=== PATIENT | female | born 1960 | race Caucasian/White ===

== ENCOUNTER → 2018-04-02 11:24 | Outpatient (CLI) | payer OTHER, SELFPAY ==
[2018-04-02 12:27] LABS: Absolute Lymphocyte Count 1.78 X10^3/ul (0.83-4.51); Absolute Neutrophil Count 2.7 X10^3/uL (2.0-7.7); Basophil# 0.03 X10^3/uL; Basophil% 0.6 % (0-1); Eosinophil# 0.16 X10^3/uL; Hematocrit 42.2 % (37-47); Lymphocyte # 1.78 X10^3/ul (4.0); Lymphocyte % 33.6 % (19-41); Mean Corp Hgb Conc 33.2 g/gl (32-36); Mean Corpuscular Hgb 33.3 pg (27.0-32.0); Mean Corpuscular Volume 100.5 fL (81-99); Mean Platelet Vol. 10.6 fl (6.2-12.0); Monocyte# 0.63 X10^3/uL; Monocyte% 11.9 % (0-10); Neutrophil # 2.68 X10^3/uL (2.7-7.7); Neutrophil % 50.7 % (47-70); Platelet Count 267 K/mm3 (150-450); RBC Distribution Width CV 13.5 % (11.6-14.6); RBC Distribution Width SD 49.5 fl (35.1-43.9); White Blood Count 5.3 K/mm3 (4.4-11.0)
[2018-04-02 12:33] LABS: POSITIVE COUNT NO; POSITIVE DIFFERENTIAL NO; POSITIVE MORPHOLOGY NO
[2018-04-02 13:31] LABS: Anion Gap 6 (5-15); BUN 13 mg/dL (7-18); BUN/Creat Ratio 16.7 RATIO (10-20); Calcium,Total 9.1 mg/dL (8.5-10.1); Chloride 103 mmol/L (98-107); Creatinine, Serum 0.78 mg/dL (0.55-1.02); EST Glomerular Filtration Rate 80 mL/min (>60); Est Glom Filt Rate - Afr Amer 97 mL/min (>60); Glucose 102 mg/dL (74-106); Potassium 3.6 mmol/L (3.5-5.1); Sodium Level 137 mmol/L (136-145); Thyroid Stim Hormone (TSH) 1.87 uIU/mL (0.358-3.74)
== END ==
PROVIDERS: Family Provider Family Medicine; PCP Family Medicine; Visit Provider Family Medicine
DX: L50.8 Other urticaria (principal)
CPT/HCPCS: 36415; 80048; 84443; 85025

== ENCOUNTER → 2019-02-19 | Outpatient (CLI) | payer OTHER, SELFPAY ==
--- NOTE | 2019-02-19 06:38 | MRI_ITS ---
STUDY: MRI RIGHT ANKLE WITHOUT CONTRAST REASON FOR EXAM: Female, 58 years old. Stress fracture. Plantar fasciitis. Heel pain. TECHNIQUE: Standardized fat and water weighted pulse sequences were obtained in all 3 orthogonal planes. COMPARISON: None. FINDINGS: No acute fracture, dislocation or osseous destruction. Long thin plantar spur (sagittal image 9 series 9). Moderate thickening of the central cord of plantar fascia (sagittal image 9 series 9). Partial-thickness tear of the plantar fascial insertion (sagittal images 9 and 10 series 10). Normal Achilles tendon. Normal muscles of the midfoot/hindfoot. Mild soft tissue swelling. Large corkscrewlike varicose veins extending into the tarsal tunnel. Small-volume tibiotalar/subtalar joint effusion. Small volume talonavicular joint effusion. Moderate posterior tibialis and flexor digitorum longus tenosynovitis. Normal flexor hallucis longus tendon. Normal peroneus longus and brevis tendons. Normal tibialis anterior tendon. Normal extensor hallucis longus tendon. Normal extensor digitorum longus tendons. Normal distal tibiofibular syndesmotic ligamentous complex. Normal lateral ligamentous complex. Normal subtalar ligaments and sinus tarsi. Normal deltoid ligamentous complexes. Normal plantar calcaneonavicular (spring) ligament. Normal Lisfranc ligament. Normal tibiotalar articular cartilage. Talar dome intact. Mild subtalar joint arthrosis (sagittal image 6 series 10). Normal talonavicular articular cartilage. Normal calcaneocuboid articular cartilage. Normal navicular-cuneiform articular cartilage. Reactive bone marrow edema at the undersurface of the talus (coronal image 19 series 8). Degenerative changes at the base of the first metatarsal (sagittal image 12 series 10). 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
== END | disposition home or self-care (01) ==
PROVIDERS: Family Provider Family Medicine; PCP Family Medicine; Referring Provider Podiatrist; Visit Provider Podiatrist
DX: M72.2 Plantar fascial fibromatosis (principal); M79.671 Pain in right foot; M84.374A Stress fracture, right foot, initial encounter for fracture
CPT/HCPCS: 73721

== ENCOUNTER → 2019-06-25 | Outpatient (CLI) | payer OTHER, SELFPAY ==
[2019-06-25 10:22] LABS: Erythrocyte Sedimentation Rate 10 mm/hr (0-30)
[2019-06-25 11:04] LABS: CRP < 2.90 mg/L (0.0-3.0); Rheumatoid Factor < 10.0 IU/mL (<15)
[2019-07-02 11:04] LABS: CCP IgG Antibodies 7 units (0-19); HLA B27 Positive (.)
== END | disposition home or self-care (01) ==
LOC: MFPLAB 08:36
PROVIDERS: Family Provider Family Medicine; PCP Family Medicine; Referring Provider Family Medicine; Visit Provider Family Medicine
DX: M19.079 Primary osteoarthritis, unspecified ankle and foot (principal)
CPT/HCPCS: 36415; 81374; 85652; 86140; 86200; 86431

== ENCOUNTER → 2020-07-09 08:47 | Outpatient (CLI) | payer OTHER, SELFPAY ==
[2020-07-09 09:53] LABS: Absolute Lymphocyte Count 1.76 X10^3/uL (0.83-4.51); Absolute Neutrophil Count 2.5 X10^3/uL (2.0-7.7); Basophil# 0.05 X10^3/uL; Basophil% 0.9 % (0-1); Eosinophil# 0.23 X10^3/uL; Eosinophils% 4.3 % (0-5); Hematocrit 41.8 % (37-47); Hemoglobin 13.6 g/dL (12.0-15.0); Lymphocyte # 1.76 X10^3/ul (4.0); Mean Corp Hgb Conc 32.5 g/dL (32-36); Mean Corpuscular Hgb 33.6 pg (27.0-32.0); Mean Corpuscular Volume 103.2 fL (81-99); Mean Platelet Vol. 10.9 fl (6.2-12.0); Monocyte# 0.81 X10^3/uL; Monocyte% 15.2 % (0-10); NRBC Flagged by Analyzer 0 % (0-5); Neutrophil # 2.46 X10^3/uL (2.7-7.7); Neutrophil % 46.2 % (47-70); Platelet Count 275 K/mm3 (150-450); RBC Distribution Width CV 13.6 % (11.6-14.6); RBC Distribution Width SD 51.8 fl (35.1-43.9); Red Blood Count 4.05 M/mm3 (4.2-5.4); White Blood Count 5.3 K/mm3 (4.4-11.0)
[2020-07-09 10:23] LABS: ALB/GLOB Ratio 1.1 RATIO (0.9-2.4); AST(SGOT) 37 U/L (15-37); Alanine Aminotransfer ALT/SGPT 33 U/L (13-56); Alkaline Phosphatase 62 U/L (45-117); Anion Gap 5 (5-15); BUN 15 mg/dL (7-18); BUN/Creat Ratio 17.9 RATIO (10-20); Calcium,Total 9.2 mg/dL (8.5-10.1); Chloride 103 mmol/L (98-107); Cholesterol 244 mg/dL (200); Creatinine, Serum 0.84 mg/dL (0.55-1.02); EST Glomerular Filtration Rate 73 mL/min (>60); Est Glom Filt Rate - Afr Amer 89 mL/min (>60); Globulin 3.5 g/dL (2.2-4.2); Glucose 97 mg/dL (74-106); High Density Lipoprotein 75 mg/dL; Potassium 3.9 mmol/L (3.5-5.1); Protein, Total 7.5 g/dL (6.4-8.2); Sodium Level 138 mmol/L (136-145); Thyroid Stim Hormone (TSH) 1.84 uIU/mL (0.358-3.74); Triglycerides 124 mg/dL; Very Low Density Lipoprotein 25 mg/dL (5-40)
== END ==
PROVIDERS: PCP Family Medicine; Referring Provider Family Medicine; Visit Provider Family Medicine
DX: I10 Essential (primary) hypertension (principal); E03.9 Hypothyroidism, unspecified; E78.00 Pure hypercholesterolemia, unspecified
CPT/HCPCS: 36415; 80053; 80061; 84443; 85025

== ENCOUNTER 2021-12-24 08:14 | Outpatient (CLI) | payer OTHER, SELFPAY ==
[2021-12-24 10:22] LABS: Microalbumin,Random Urine 12.2 mg/L (NO RANGE EST.); Microalbumin:Creatinine Ratio 8.8 mg/g CRE (<30 mg/g CRE)
[2021-12-24 10:39] LABS: ALB/GLOB Ratio 1.1 RATIO (0.9-2.4); AST(SGOT) 25 U/L (15-37); Alanine Aminotransfer ALT/SGPT 26 U/L (13-56); Alkaline Phosphatase 70 U/L (45-117); Anion Gap 7 (5-15); BUN 14 mg/dL (7-18); BUN/Creat Ratio 17.1 RATIO (10-20); Calcium,Total 9.4 mg/dL (8.5-10.1); Chloride 100 mmol/L (98-107); Cholesterol 241 mg/dL (200); Creatinine, Serum 0.82 mg/dL (0.55-1.02); EST Glomerular Filtration Rate 75 mL/min (>60); Est Glom Filt Rate - Afr Amer 90 mL/min (>60); Globulin 3.5 g/dL (2.2-4.2); Glucose 86 mg/dL (74-106); High Density Lipoprotein 95 mg/dL; Protein, Total 7.5 g/dL (6.4-8.2); Sodium Level 135 mmol/L (136-145); Thyroid Stim Hormone (TSH) 4.42 uIU/mL (0.358-3.74); Triglycerides 128 mg/dL; Very Low Density Lipoprotein 26 mg/dL (5-40)
== END 2021-12-24 23:59 | disposition home or self-care (01) ==
LOC: MTLAB 08:16
PROVIDERS: PCP Family Medicine; Referring Provider Nurse Practitioner Family; Visit Provider Nurse Practitioner Family
DX: I10 Essential (primary) hypertension (principal); E78.00 Pure hypercholesterolemia, unspecified; E03.9 Hypothyroidism, unspecified
CPT/HCPCS: 36415; 80053; 80061; 82043; 82570; 84443

== ENCOUNTER → 2022-04-25 | Outpatient (CLI) | payer OTHER, SELFPAY ==
[2022-04-25 12:33] LABS: Thyroid Stim Hormone (TSH) 0.36 uIU/mL (0.358-3.74)
== END | disposition home or self-care (01) ==
LOC: MFPLAB 09:48
PROVIDERS: PCP Family Medicine; Visit Provider Nurse Practitioner Family
DX: E03.9 Hypothyroidism, unspecified (principal)
CPT/HCPCS: 36415; 84443

== ENCOUNTER → 2022-07-20 | Outpatient (CLI) | payer OTHER, SELFPAY ==
[2022-07-20 13:19] LABS: Thyroid Stim Hormone (TSH) 0.28 uIU/mL (0.358-3.74)
== END | disposition home or self-care (01) ==
LOC: MFPLAB 10:48
PROVIDERS: PCP Family Medicine; Referring Provider Family Medicine; Visit Provider Family Medicine
DX: E03.9 Hypothyroidism, unspecified (principal)
CPT/HCPCS: 36415; 84443

== ENCOUNTER → 2022-08-24 | Outpatient (CLI) | payer OTHER, SELFPAY ==
[2022-08-24 11:09] LABS: Thyroid Stim Hormone (TSH) 3.27 uIU/mL (0.358-3.74)
== END | disposition home or self-care (01) ==
LOC: MFPLAB 08:28
PROVIDERS: PCP Family Medicine; Referring Provider Family Medicine; Visit Provider Family Medicine
DX: E03.9 Hypothyroidism, unspecified (principal)
CPT/HCPCS: 36415; 84443

== ENCOUNTER → 2023-01-26 | Outpatient (CLI) | payer OTHER, SELFPAY ==
[2023-01-26 11:03] LABS: Thyroid Stim Hormone (TSH) 1.99 uIU/mL (0.358-3.74)
== END | disposition home or self-care (01) ==
LOC: MFPLAB 08:12
PROVIDERS: PCP Family Medicine; Referring Provider Family Medicine; Visit Provider Family Medicine
DX: E03.9 Hypothyroidism, unspecified (principal)
CPT/HCPCS: 36415; 84439; 84443

== ENCOUNTER → 2023-05-19 | Outpatient (CLI) | payer OTHER, SELFPAY ==
[2023-05-19 10:14] LABS: ALB/GLOB Ratio 1.1 RATIO (0.9-2.4); AST(SGOT) 32 U/L (15-37); Alanine Aminotransfer ALT/SGPT 28 U/L (13-56); Albumin, Serum 3.8 g/dL (3.2-5.0); Alkaline Phosphatase 61 U/L (45-117); Anion Gap 7 (5-15); BUN 14 mg/dL (7-18); BUN/Creat Ratio 18.2 RATIO (10-20); Calcium,Total 9.6 mg/dL (8.5-10.1); Chloride 100 mmol/L (98-107); Cholesterol 213 mg/dL (200); Creatinine, Serum 0.77 mg/dL (0.55-1.02); EST Glomerular Filtration Rate 80 mL/min (>60); Est Glom Filt Rate - Afr Amer 97 mL/min (>60); Globulin 3.6 g/dL (2.2-4.2); Glucose 93 mg/dL (74-106); High Density Lipoprotein 70 mg/dL; Potassium 3.8 mmol/L (3.5-5.1); Protein, Total 7.4 g/dL (6.4-8.2); Sodium Level 135 mmol/L (136-145); Triglycerides 161 mg/dL; Very Low Density Lipoprotein 32 mg/dL (5-40)
[2023-05-19 10:46] LABS: Microalbumin,Random Urine 15.7 mg/L (NO RANGE EST.); Microalbumin:Creatinine Ratio 8.4 mg/g CRE (<30 mg/g CRE)
== END | disposition home or self-care (01) ==
LOC: MFPLAB 08:39
PROVIDERS: Family Medicine; PCP Family Medicine; Visit Provider Family Medicine
DX: E78.00 Pure hypercholesterolemia, unspecified (principal); I10 Essential (primary) hypertension
CPT/HCPCS: 36415; 80053; 80061; 82043; 82570

== ENCOUNTER → 2023-10-17 | Outpatient (CLI) | payer OTHER, SELFPAY ==
--- OUTSIDE RECORDS SUMMARY | 2023-10-17 11:54 | XMS RPT_ITS | CCD ---
Author Name Unknown Address [address] [place] [address] Organization [facility] Care Team Providers Care Supervisor Grading Name Role Phone Spnecer Rodriguez MD Unavailable JOSE MIGUEL HATHAWAY Attending Unavailable JOSE MIGUEL HATHAWAY Primary Care Unavailable JOSE MIGUEL HATHAWAY Admitting Unavailable JOSE MIGUEL HATHAWAY Attending Unavailable JOSE MIGUEL HATHAWAY Primary Care Unavailable JOSE MIGUEL HATHAWAY Admitting Unavailable Christiano Holger MCDOWELL Unavailable ChristianoHolger dixon DO Primary Care Provider [phone] Nubia Sage DO Primary Care Provider Nubia Sage DO Primary Care Provider THERESA SANDHU Referring Unavailable CHRISTIANOHOLGER VICK Primary Care Unavailable HOLGER ALVARADO Primary Care Unavailable ALLAN PARTIDA Referring Unavailable CHRISTIANOHOLGER Dixon Primary Care Unavailable ALLAN PARTIDA Referring Unavailable NUBIA SAGE Primary Care Unavailable ALLAN PARTIDA Referring Unavailable NUBIA SAGE Primary Care Unavailable ALLAN PARTIDA Referring Unavailable NUBIA SAGE Primary Care Unavailable ALLAN PARTIDA Referring Unavailable CHELSEY BAIG Referring Unavailable NUBIA SAGE Primary Care Unavailable CHELSEY BAIG Referring Unavailable NUBIA SAGE Primary Care Unavailable GUANAKO ABARCA Attending Unavailable NUBIA SAGE Primary Care Unavailable ALLAN PARTIDA Referring Unavailable CHRISTIANOHOLGER Primary Care Unavailable ALLAN PARTIDA Referring Unavailable SHOSHANA, CLAUDIA Attending Unavailable CHRISTIANO, HOLGER Kolb Primary Care Unavailable FEINLEIB, ALLAN E Referring Unavailable DEZ DOBBINS Attending Unavailable NUBIA SAGE Primary Care Unavailable FEINLEIB, ALLAN E Referring Unavailable CHRISTINAOHOLGER Primary Care Unavailable FEINLEIB, ALLAN E Referring Unavailable FEINLEIB, ALLAN E Attending Unavailable NUBIA SAGE Primary Care Unavailable FEINLEIB, ALLAN E Referring Unavailable NUBIA SAGE Primary Care Unavailable FEINLEIB, ALLAN E Referring Unavailable NUBIA SAGE Primary Care Unavailable FEINLEIB, ALLAN E Referring Unavailable Medications Current Medications Medication Drug Class(es) Dates Sig (Normalized) Sig (Original) iv contrast (will be provided with radiology test) (1 source) Start: 07-26-2023 End: 07-27-2023 inject 1 dose intravenously once iv contrast (will be provided with radiology test) Indications: Ascending aorta dilation (HCC) CTA Chest. No IV access, insert saline lock prior to the sedation, infusion, injection for imaging exam. Discontinue saline lock post exam. If Pt. has a central line or IVAD, may access for administration according to line specific nursing protocol. Once exam is complete flush line and de-access according to line specific nursing protocol in the CT contrast administration guidelines link. 1 Each 0 07/26/2023 07/27/2023 Active Completed/Discontinued Medications Medication Drug Class(es) Dates Sig (Normalized) Sig (Original) aspirin 81 mg delayed release oral tablet (12 sources) Platelet Aggregation Inhibitor, Nonsteroidal Anti-inflammatory Drug Start: 03-10-2020 take 1 tablet by mouth once daily aspirin, enteric coated (ECOTRIN LOW STRENGTH) 81 mg EC tablet Take 1 tablet by mouth once daily. 0 03/10/2020 Active Problems Active Problems Problem Classification Problem Date Documented Date Episodic/Chronic Abdominal hernia (6 sources) Hernia of anterior abdominal wall; Translations: [Ventral hernia without obstruction or gangrene] Onset: 09-08-2023 08-01-2023 Episodic Aortic; peripheral; and visceral artery aneurysms (14 sources) Ascending aorta dilatation; Translations: [Thoracic aortic ectasia] Onset: 10-31-2019 07-26-2023 Chronic Cardiac and circulatory congenital anomalies (11 sources) Atrial septal defect; Translations: [ASD (atrial septal defect)] 10-31-2019 Chronic Disorders of lipid metabolism (20 sources) Hypercholesterolemia; Translations: [Pure hypercholesterolemia, unspecified] Onset: 10-31-2019 08-01-2023 Chronic Essential hypertension (12 sources) Hypertensive disorder; Translations: [Essential (primary) hypertension] 10-31-2019 Chronic Immunizations and screening for infectious disease (2 sources) Vaccination needed; Translations: [Encounter for immunization] Onset: 08-01-2023 08-01-2023 Episodic Menopausal disorders (11 sources) Menopausal syndrome; Translations: [Menopausal and female climacteric states] 10-31-2019 Chronic Nutritional deficiencies (11 sources) Vitamin D deficiency; Translations: [Vitamin D deficiency, unspecified] Onset: 10-31-2019 08-01-2023 Chronic Osteoarthritis (4 sources) Osteoarthritis of foot joint; 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] Onset: 05-02-2019 05-02-2019 Chronic Other connective tissue disease (12 sources) Plantar fasciitis; Translations: [Plantar fascial fibromatosis] Onset: 05-02-2019 05-02-2019 Episodic Other connective tissue disease (11 sources) Foot pain; Translations: [Pain in unspecified foot] 10-31-2019 Episodic Other connective tissue disease (11 sources) Calcaneal spur; Translations: [Calcaneal spur, unspecified foot] 10-31-2019 Episodic Other connective tissue disease (1 source) Other bursitis of hip, right hip; Translations: [Bursitis of both hips, unspecified bursa] Onset: 08-01-2023 Episodic Other connective tissue disease (1 source) Other bursitis of hip, left hip; Translations: [Bursitis of both hips, unspecified bursa] Onset: 08-01-2023 Episodic Other inflammatory condition of skin (11 sources) Psoriasis; Translations: [Psoriasis, unspecified] 10-31-2019 Chronic Other nutritional; endocrine; and metabolic disorders (11 sources) Obese class I; Translations: [Obesity, unspecified] Onset: 08-01-2023 08-01-2023 Chronic Other and delivery including normal (11 sources) Delivery normal; Translations: [Encounter for full-term uncomplicated delivery] 10-31-2019 Episodic Other screening for suspected conditions (not mental disorders or infectious disease) (20 sources) Patient encounter status; Translations: [Encounter for screening for malignant neoplasm of cervix] Onset: 10-16-2015 10-31-2019 Episodic Thyroid disorders (12 sources) Hypothyroidism; Translations: [Hypothyroidism, unspecified] Onset: 08-01-2023 10-31-2019 Chronic Transient cerebral ischemia (11 sources) Transient cerebral ischemia; Translations: [Transient cerebral ischemic attack, unspecified] Onset: 10-16-1987 10-31-2019 Chronic Past or Other Problems Problem Classification Problem Date Documented Da te Episodic/Chronic Diabetes mellitus without complication (11 sources) Prediabetes; Translations: [Prediabetes] Onset: 10-31-2019 08-01-2023 Episodic Other connective tissue disease (11 sources) Bilateral bursitis of hips; Translations: [Other bursitis of hip, right hip] Onset: 11-16-2021 08-01-2023 Episodic Other nutritional; endocrine; and metabolic disorders (11 sources) Blood urate raised; Translations: [Hyperuricemia without signs of inflammatory arthritis and tophaceous disease] Onset: 10-31-2019 08-01-2023 Episodic Unclassified (1 source) Problem Results Test Name Value Interpretation Reference Range Facil ity Vital Signs Date Time Vital Sign Value Performing Clinician Facility 09-11-2023 12:59-0500 Body height 175.3 cm Guanako Abarca MD Work Phone: [facility] 09-11-2023 12:59-0500 Body temperature 96.4 [degF] Guanako Abarca MD Work Phone: [facility] 09-11-2023 12:59-0500 Body weight 99.79 kg Guanako Abarca MD Work Phone: [facility] 09-11-2023 12:59-0500 Diastolic blood pressure 87 mm[Hg] Guanako Abarca MD Work Phone: [facility] 09-11-2023 12:59-0500 Heart rate 65 /min Guanako Abarca MD Work Phone: [facility] 09-11-2023 12:59-0500 Respiratory rate 12 /min Guanako Abarca MD Work Phone: [facility] 09-11-2023 12:59-0500 Systolic blood pressure 166 mm[Hg] Guanako Abarca MD Work Phone: [facility] 08-01-2023 10:05-0400 Diastolic blood pressure 85 mm[Hg] Allan Partida MD Work Phone: [facility] 08-01-2023 10:05-0400 Heart rate 80 /min Allan Partida MD Work Phone: [facility] 08-01-2023 10:05-0400 Systolic blood pressure 128 mm[Hg] Allan Partida MD Work Phone: [facility] 08-01-2023 09:57-0400 Body height 175.3 cm Allan Partida MD Work Phone: [facility] 08-01-2023 09:57-0400 Body temperature 97.7 [degF] Allan Partida MD Work Phone: [facility] 08-01-2023 09:57-0400 Body weight 98.1 kg Allan Partida MD Work Phone: [facility] 08-01-2023 08:26-0400 Body height 175.3 cm Holger Alvarado DO Work Phone: [facility] 08-01-2023 08:26-0400 Body weight 98.07 kg Holger Alvarado DO Work Phone: [facility] NEGATED: Highlighted [id number] 09:35-0400 BMI (Body Mass Index) 33.2 kg/m2 Nubia Jeter LPN [facility] Work Phone: NEGATED: Highlighted [id number] 09:35-0400 Body weight 101.61 kg Nubia Jeter LPN [facility] Work Phone: NEGATED: Highlighted [id number] 09:35-0400 Body weight 102 kg Nubia Jeter LPN [facility] Work Phone: NEGATED: Highlighted [id number] 09:35-0400 BP Diastolic 89 mm[Hg] Nubia Jeter LPN [facility] Work Phone: NEGATED: Highlighted [id number] 09:35-0400 BP Diastolic 99 mm[Hg] Nubia Jeter LPN [facility] Work Phone: NEGATED: Highlighted [id number] 09:35-0400 BP Systolic 161 mm[Hg] Nubia Jeter COMPLETIONS MANAGER [facility] Work Phone: NEGATED: Highlighted [id number] 09:35-0400 BP Systolic 155 mm[Hg] Nubia Jeter LPN [facility] Work Phone: NEGATED: Highlighted [id number] 09:35-0400 Heart rate 2+ Nubia Jeter COMPLETIONS MANAGER [facility] Work Phone: NEGATED: Highlighted [id number] 09:35-0400 Height 175.26 cm Nubia Jeter COMPLETIONS MANAGER [facility] Work Phone: NEGATED: Highlighted [id number] 09:35-0400 Height 175 cm Nubia Jeter COMPLETIONS MANAGER [facility] Work Phone: NEGATED: Highlighted [id number] 09:35-0400 Pulse (Heart Rate) 54 /min Nubia Jeter COMPLETIONS MANAGER [facility] Work Phone: Encounters Encounter Date Encounter Type Care Provider Facility Start: 09-18-2023 End: 09-18-2023 ambulatory DEZ DOBBINS Facility:[facility] Start: 09-11-2023 End: 09-12-2023 ambulatory GUANAKO ABARCA Facility:[facility] Start: 09-11-2023 End: 09-11-2023 Patient encounter procedure Guanako Abarca MD Work Phone: General Surgery Procedures Date Procedure Procedure Detail Performing Clinician Start: 09-08-2023 Ct abdomen & pelvis w/o contrast material Chelsey Baig MARCOS Work Phone: Start: 08-01-2023 Radiologic exam knee complete 4/more views Allan Partida MD Work Phone: Start: 08-01-2023 PFIZER-BIONTECH COVI D-19 VACCINE ( SEASON) AGE 12+ YR Allan Partida MD Work Phone: Start: 08-01-2023 RSV VACCINE, BIVALEN T (ABRYSVO) Allan Partida MD Work Phone: Start: 08-01-2023 HEARING SCREENING Frances Ross BOLDEN Work Phone: Start: 08-01-2023 Lipid 1996 panel - S celina or Plasma Holger Alvarado DO Work Phone: Start: 10-31-2019 Lipid 1996 panel - S celina or Plasma Allan Partida MD Work Phone: Start: 05-02-2019 End: 05-02-2019 Blood pressure outside of normal parameters - follow-up documented Spencer Rodriguez MD Work Phone: Start: 05-02-2019 End: 05-02-2019 BMI documented as above normal parameters - follow-up documented Spencer Rodriguez MD Work Phone: Start: 05-02-2019 End: 05-02-2019 Documentation of current medications Spencer Rodriguez MD Work Phone: Start: 05-02-2019 End: 05-02-2019 Osteoarthritis symptoms and functional status not assessed Spencer Rodriguez MD Work Phone: Start: 05-02-2019 End: 05-02-2019 Pain assessment documented as positive - follow-up documented Spencer Rodriguez MD Work Phone: Start: 05-02-2019 End: 05-02-2019 Tobacco non-user Spencer Rodriguez MD Work Phone: Start: 07-23-2012 Colonoscopy Allan piña MD Work Phone: NEGATED: Highlighted rowStart: 05-02-2019 End: 05-02-2019 Documentation of current medications Nubia Jeter LPN Plan of Treatment Date Care Activity Detail Author Start: 08-01-2028 Lipid 1996 panel - Serum or Plasma Lipid Screening [facility] Start: 08-01-2026 Diabetes Screening Diabetes Screening [facility] Start: 05-19-2026 Urine microalbumin profile DTaP,Tdap,Td Vaccine (2 - Td or Tdap) [facility] Start: 10-31-2024 Lipid 1996 panel - Serum or Plasma Lipid Screening [facility] Start: 06-16-2023 Covid-19 Vaccine () Covid-19 Vaccine () [facility] Start: 06-16-2023 Covid-19 Vaccine () Covid-19 Vaccine () [facility] Start: 06-16-2023 Influenza vaccination Influenza Vaccine (#1) [facility] Start: 2023 Advance Directive Discussion Advance Directive Discussion [facility] Start: 2023 Bone Density Screening Bone Density Screening [facility] Start: 2023 Pneumococcal Vaccine: 65+ (3 - PPSV23 or PCV20) Pneumococcal Vaccine: 65+ (3 - PPSV23 or PCV20) [facility] Start: 10-31-2022 Diabetes Screening Diabetes Screening [facility] Start: 10-16-2022 Depression Assessment Depression Assessment [facility] Start: 07-23-2022 Colonoscopy Colonoscopy [facility] Start: 07-23-2022 Colorectal Cancer Screening Colorectal Cancer Screening [facility] Start: 10-31-2020 Mammography Mammogram Screening [facility] Start: 05-02-2019 End: 05-02-2019 Appointment Appointment [facility] Work Phone: Start: 2018 RSV Vaccine (1 - 1-dose 60+ series) RSV Vaccine (1 - 1-dose 60+ series) [facility] Start: 07-23-2013 Colonoscopy Colonoscopy [facility] Start: 07-23-2013 Colorectal Cancer Screening Colorectal Cancer Screening [facility] Start: 2008 Shingrix Vaccine (1 of 2) Shingrix Vaccine (1 of 2) [facility] Start: 2003 Cologuard (FIT-DNA) Cologuard (FIT-DNA) [facility] Start: [address] COLONOGRAPHY [facility] Start: 2003 Fecal Occult Blood Fecal Occult Blood [facility] Start: 2003 SIGMOIDOSCOPY SIGMOIDOSCOPY [facility] Start: 1976 Annual PCP Team Chronic Disease Visit Annual PCP Team Chronic Disease Visit [facility] Start: 1976 BP Controlled (<130/80) BP Controlled (<130/80) [facility] in Start: 1976 HIV Screening HIV Screening [facility] COLOGUARD COLOGUARD Lab Claudia chong Colon cancer screening Ordered: 08/01/2023 [facility] Work Phone: Immunizations Immunization Date Immunization Notes Care Provider Fa tam 08-01-2023 COVID-19 vaccine, ag e 12+ yr, 2022- season (Broadcast.mobi) Claudia Shoshana AUD Work Phone: [facility] 08-01-2023 pneumococcal (PCV20) vaccine, 20 valent (PREVNAR 20) [facility] AUD Work Phone: [facility] 08-01-2023 respiratory syncytia l virus (RSV) vaccine, bivalent (ABRYSVO) [facility] AUD Work Phone: [facility] 08-01-2023 pneumococcal Conjuga te, unspecified formulation Allan Partida MD Work Phone: [facility] Work Phone: 07-27-2023 influenza, injectabl e, quadrivalent, contains preservative Holger Christiano DO Work Phone: [facility] Work Phone: 07-13-2020 zoster vaccine recombinant Holger Christiano DO Work Phone: [facility] 12-24-2019 zoster vaccine recombinant Holger Christiano DO Work Phone: [facility] 12-17-2019 meningococcal B vacc ine, fully recombinant Holger Alvarado DO Work Phone: [facility] 12-17-2019 meningococcal oligosaccharide (groups A, C, Y and W-135) diphtheria toxoid conjugate vaccine (MCV4O) Holger Alvarado DO Work Phone: [facility] 07-16-2019 influenza, injectabl e, quadrivalent, contains preservative Allan Partida MD Work Phone: [facility] 07-16-2019 influenza virus vacc ine, unspecified formulation Allan Partida MD Work Phone: [facility] 05-19-2016 pneumococcal conjuga te vaccine, 13 valent Allan Partida MD Work Phone: [facility] 05-19-2016 tetanus toxoid, redu benny diphtheria toxoid, and acellular pertussis vaccine, adsorbed Allan Partida MD Work Phone: [facility] 10-21-2009 novel influenza-H1N1 -09, preservative-free, injectable Holger Alvarado DO Work Phone: [facility] 10-05-1999 pneumococcal polysaccharide vaccine, 23 valent Allan Partida MD Work Phone: [facility] Payers Date Payer Category Payer Private Health Insurance KARINA العراقي OAP [id number] 2020-Present [phone] [facility] [id number] [place] [address] Open Access [id number] 2020 Private Health Insurance [id number] Social History Date Type Detail Facility Start: 05-02-2019 End: 05-02-2019 Assertion Unknown if ever smoked [facility] Work Phone: Start: 10-31-2019 End: 08-01-2023 Tobacco smoking status NHIS Ex-smoker [facility] Work Phone: Start: 10-16-1975 End: 10-16-1979 History of tobacco use Current smoker [facility] Work Phone: Start: 10-16-1975 End: 10-16-1979 History of tobacco use Cigarette Smoker [facility] Work Phone: Start: 10-31-2019 End: 08-01-2023 Cigarettes smoked current (pack per day) - Reported 0.3 [facility] Start: 10-31-2019 End: 08-01-2023 Tobacco use and exposure Smokeless tobacco non-user [facility] Work Phone: Start: 12-08-2021 End: 08-01-2023 Alcohol intake Current drinker of alcohol (finding) [facility] Start: 12-08-2021 End: 08-01-2023 Tobacco use panel [facility] Adult Depression Screening Assessment 0 [facility] Start: 10-31-2019 Tobacco Comment 4-5 cigarettes/day [facility] Start: 10-31-2019 [facility] Start: 1960 Sex Assigned At Female [facility] Start: 11-04-2020 Gender identity Identifies as female gender (finding) [facility] Start: 11-04-2020 Sexual orientation Heterosexual (fin ding) [facility] Start: 08-01-2023 Alcohol Comment 2 glasses of s cotch nightly [facility] NEGATED: Highlighted rowStart: 05-02-2019 End: 05-02-2019 Employment detail Employment detail [facility] Work Phone: Clinical Notes 11-05-2020 to 09-11-2023 Guanako Abarca MD - 09/11/2023 1:29 PM Sidney Haro - 09/11/2023 1:00 PM Tresa Barkley MD - 09/11/2023 12:58 PM Chelsey Chan RT(R) - 09/08/2023 3:20 PM EST Note Date & Type Note Facility 09-11-2023 Note HNO ID: [id number] Author: Guanako Abarca MD Service: ? Author Type: Physician Type: Progress Notes Filed: 09/18/2023 5:15 PM Note Text: Consultation requested by Dr. Allan Partida for an opinion regarding incisional hernia. My final recommendations will be communicated back to the requesting physician by way of shared Medical record or letter to requesting physician via [place] mail. I have seen and evaluated the patient and discussed the case with the resident physician. I agree with the assessment and plan as documented in the resident?s note. Josh Huffman is a 63 year old female here for evaluation of a(n) incisional epigastric hernia. 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 Other significant comorbidities include hypothyroidism, HTN, psoriasis. On exam, she has an an umbilical hernia and on CT she has the same as well as a large stone in her GB (she is asymptomatic). Plan is for watchful waiting as per patient for now (will discuss with at home) but if she wants intervention we would offer her lap assisted ventral hernia repair with mesh. Patient consented for study? Not applicable Guanako Abarca MD September 11, 2023 2:18 PM [facility] 09-11-2023 History of Present illness Narrative Consultation requested by Dr. Allan Partida for an opinion regarding incisional hernia. My final recommendations will be communicated back to the requesting physician by way of shared Medical record or letter to requesting physician via US mail. I have seen and evaluated the patient and discussed the case with the resident physician. I agree with the assessment and plan as documented in the resident s note. Josh Huffman is a 63 year old female here for evaluation of a(n) incisional epigastric hernia. 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 Other significant comorbidities include hypothyroidism, HTN, psoriasis. On exam, she has an an umbilical hernia and on CT she has the same as well as a large stone in her GB (she is asymptomatic). Plan is for watchful waiting as per patient for now (will discuss with at home) but if she wants intervention we would offer her lap assisted ventral hernia repair with mesh. Patient consented for study? Not applicable Guanako Abarca MD September 11, 2023 2:18 PM documented in this encounter [facility] 09-11-2023 Nurse Note What is the reason for your visit today? Consult ventral hernia Who is your referring physician? Dr. Partida Are you having poor oral intake? NO Have you had unintentional weight loss of 15 lbs/7 Kg in the last 3-6 months? NO Bowels: regular Wound: clean & dry Temperature: No Drains: No documented in this encounter [facility] 09-11-2023 History and physical note [facility] - HISTORY AND PHYSICAL SUBJECTIVE: Chief Complaint: ventral hernia HPI: Josh Huffman is a 63 year old female with history of HTN, ASD s/p repair, hypothyroidism, arthritis and psoriasis and who presents with ventral hernia. She states that she has only noticed the hernia in the past year and that it was formally diagnosed by her PCP at her most recent executive physical exam earlier this month. It does not cause her any pain or discomfort. 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 HEENT: Negative for frequent or significant headaches, No changes in hearing or vision, no nose bleeds or other nasal problems. NECK: Negative for lumps, goiter, pain and significant neck swelling. RESPIRATORY: Negative for cough, hemoptysis, wheezing, COPD, dyspnea or shortness of breath. CARDIOVASCULAR: Negative for chest pain, leg swelling, hypertension, CHF or palpitations. GI: No nausea, vomiting, or diarrhea. MUSCULOSKELETAL: Negative for joint pain or swelling, back pain or muscle pain. SKIN: Negative for lesions, rash, and itching. PSYCH: Negative for sleep disturbance, mood disorder and recent psychosocial stressors. NEURO: No history of headaches, syncope, paralysis, seizures or tremors. PAST MEDICAL HISTORY Diagnosis Date Ascending aorta dilation (4.3 cm on non-contrast CT 10/2019) 10/31/2019 ASD (atrial septal defect) 1988 repaired at [facility] at age 27 Bilateral hip bursitis 11/2021 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 Elevated uric acid in blood 10/31/2019 without gout Heel spur resolved with Tenex Hypercholesterolemia 10/31/2019 Hypertension on medication since 2012 Hypothyroidism 2017 Menopausal state Normal coronary arteries, Coronary Calcium Score = 0 (10/2019) 10/31/2019 (normal spontaneous vaginal delivery) 1987, 1989, 1993 1987: 8'12 ; 1989 9'3 ; 1993: 9'1 Prediabetes 10/31/2019 Psoriasis scalp Right plantar fasciitis treated with Tenex TIA (transient ischemic attack) 1988 during first , diagnosed ASD, repaired at [facility] after delivery Vitamin D deficiency 10/31/2019 PAST SURGICAL HISTORY Procedure Laterality Date COLONOSCOPY 07/23/2012 hemorrhoids, diverticulosis, advised 10-year follow-up HEART SURGERY HX 1987 at [facility], atrial septal defect repair LASIK Right 2001 Right PAST SURGICAL HISTORY OF 2018 laser surg, greater and lesser saphenous veins, bilateral REMOVAL OF SPLEEN TOTAL 1969 traumatic SKIN BIOPSY HX benign TOE SURGERY HX 2012 tendon repairs due to step into groundhog hole, second surgery same year due to atrophic changes TONSILLECTOMY HX 1975 US GUIDED PLANTAR FASCIOTOMY Right 12/25/2020 Right FAMILY HISTORY Problem Relation Age of Onset Heart Mother pacemaker Psoriasis Mother Arthritis Mother psoriatic Lung Cancer Mother at 92 in 11/2022 Prostate Cancer Father at 79, metastasized to bone Aneurysm Father brain Melanoma Sister 42 Alcohol abuse Brother Dementia Brother alcohol-related, in SNF other (Head injury) Brother at 29 Cancer Brother Throat, at age 61 Diabetes Paternal Grandmother at ~72, type I Diabetes Son type 1 No Known Problems Son Hearing Loss Son hearing aids since age 4 Social History Tobacco Use Smoking status: Former Packs/day: 0.25 Years: 4.00 Additional pack years: 0.00 Total pack years: 1.00 Types: Cigarettes Start date: 10/16/1975 Quit date: 10/16/1979 Years since quittin.9 Smokeless tobacco: Never Vaping Use Vaping Use: Never used Substance Use Topics Alcohol use: Yes Alcohol/week: 14.0 standard drinks of alcohol Types: 14 Shots of liquor per week Comment: 2 glasses of scotch nightly Drug use: Never Prior to Admission medications as of 08/01/23 1524 Medication Sig Last Dose Taking levothyroxine (SYNTHROID) 100 mcg tablet Take 1 tablet by mouth four times a week. //Sat/Sun levothyroxine (SYNTHROID) 112 mcg tablet Take 1 tablet by mouth three times a week. Mon/Mon/Fri cyanocobalamin, vitamin B-12, (VITAMIN B-12 ORAL) Take 1,000 mcg by mouth once daily. cholecalciferol, vitamin D3, (VITAMIN D3 ORAL) Take 2,000 Units by mouth once daily. psyllium husk (METAMUCIL ORAL) Take 5.8 g by mouth once daily. diclofenac (VOLTAREN) 1 % topical gel Apply 2 g to affected area four times daily. aspirin, enteric coated (ECOTRIN LOW STRENGTH) 81 mg EC tablet Take 1 tablet by mouth once daily. KELP ORAL Take 325 mcg by mouth daily at bedtime. iodine supplement MILK THISTLE ORAL Take 1,000 mg by mouth once daily. Includes Dandelion root 50mg naproxen sodium (ALEVE) 220 mg cap Take 2 capsules by mouth once daily. 1 capsule in PM lisinopril-hydrochlorothiazide 10-12.5 mg per tablet Take 1 tablet by mouth every morning. metoprolol succinate XL, long acting, (TOPROL XL) 100 mg Tb24 Take 100 mg by mouth daily at bedtime. ALLERGIES No Known Allergies PHYSICAL EXAM: GENERAL: Alert. No distress. Resting comfortably. NEURO: A&Ox3. No focal neurologic deficits. Sensation grossly intact. HEENT: Normocephalic. Atraumatic. EOMI. LUNGS: Unlabored breathing. Equal excursion bilaterally. CARDIAC: Regular rate. Good perfusion throughout. ABDOMEN: Soft, non-tender, non-distended. No rebound or guarding. Ventral hernia present under prior chest tube site. Umbilical hernia not palpable EXTREMITIES: NEGRETE. No deformities. SKIN: No obvious jaundice or pallor. Relevant hernia findings - ventral hernia below chest tube incision site from ASD repair LABS: Reviewed as necessary IMAGING: CTAP 09/08/23 * Ventral midline upper abdominal wall hernia containing fat at the level of the left hepatic lobe. A portion of the left lobe is immediately adjacent to the neck without entering the hernia sac. The hernia neck measures 3.4 x 2.4 cm in maximum TV and AP dimensions (5:35, 8:86). * Tiny fat-containing umbilical hernia. ASSESSMENT/PLAN: Josh Huffman is a 63 year old female with history of HTN, ASD s/p repair, hypothyroidism, arthritis and psoriasis and who presents with ventral hernia. Today we discussed the indications for ventral hernia repair, procedure description, and anticipated recovery. After discussion with Starr and her about the relative risks and benefits of laparoscopic ventral hernia repair, she decided to wait and see how her clinical course progresses given her asymptomatic state. All questions were answered at this time. Of note, we did also talk about the CT finding of gallstone and that if she starts developing postprandial RUQ pain, to seek care. Plan: - Follow up with Dr. Abarca as needed. Patient seen and discussed with Dr. Tevin Li MD PGY-1 Resident Hernia Surgery Service 09/11/2023 12:58 PM documented in this encounter [facility] 09-08-2023 Note HNO ID: [id number] Author: Chelsey Guzman RT(R) Service: ? Author Type: Cleaning Maid Type: Progress Notes Filed: 09/08/2023 2:24 PM Note Text: Radiology Service Progress Note PATIENT NAME: Josh Huffman DATE OF SERVICE: September 08, 2023 TIME: 2:24 PM PATIENT IDENTITY VERIFICATION COMPLETED USING TWO (2) IDENTIFIERS: Name and Date of confirmed by patient verbally. FALL SCREENING: Has the patient had 2 falls in the last year or 1 fall with injury or currently using an Ambulatory Assistive Device (Walker, Cane, Wheelchair, Crutches, etc.)? No PATIENT GENDER DATA: Female. status: : No status: NO. PATIENT RELEVANT IMPLANT DATA REVIEWED: Yes RADIOLOGY DEPARTMENT: CT; Exam(s) Completed: Abdomen/Pelvis PERIPHERAL IV DATA: Not applicable SIGNED BY: RT Shanell(R) September 08, 2023 2:24 PM [facility] 09-08-2023 History of Present illness Narrative Radiology Service Progress Note PATIENT NAME: Josh Huffman DATE OF SERVICE: September 08, 2023 TIME: 2:24 PM PATIENT IDENTITY VERIFICATION COMPLETED USING TWO (2) IDENTIFIERS: Name and Date of confirmed by patient verbally. FALL SCREENING: Has the patient had 2 falls in the last year or 1 fall with injury or currently using an Ambulatory Assistive Device (Walker, Cane, Wheelchair, Crutches, etc.)? No PATIENT GENDER DATA: Female. status: : No status: NO. PATIENT RELEVANT IMPLANT DATA REVIEWED: Yes RADIOLOGY DEPARTMENT: CT; Exam(s) Completed: Abdomen/Pelvis PERIPHERAL IV DATA: Not applicable SIGNED BY: RT Shanell(R) September 08, 2023 2:24 PM documented in this encounter [facility] 08-29-2023 Miscellaneous Notes Contacted patient to advise of Recent Imaging Needed prior to Appointment. No answer and VM left to contact this caption writer back, will await callback and [employer] message also sent regarding phone call. Cassandra Ybarra LPN documented in this encounter [facility] 08-01-2023 Note HNO ID: [id number] Author: Isabel Ambrose RN Service: Nursing Author Type: Registered Nurse Type: Progress Notes Filed: 08/01/2023 4:12 PM Note Text: Radiology Service Progress Note DATE OF SERVICE: August 01, 2023 TIME: 4:05 PM PATIENT WEIGHT: 216LBS PATIENT IDENTITY VERIFICATION COMPLETED USING TWO (2) STANDARD IDENTIFIERS: Name and Date of confirmed by patient verbally and Name and Date of confirmed by identification band. FALL SCREENING: Has the patient had 2 falls in the last year or 1 fall with injury or currently using an Ambulatory Assistive Device (Walker, Cane, Wheelchair, Crutches, etc.)? No PATIENT GENDER DATA: Female. status: : No status: NO. ALLERGIES: Reviewed and unchanged CONTRAST ALLERGY: No EXAM: CT -CONTRAST INDUCED NEPHROPATHY RISK FACTORS: Patient age > 60 years CREATININE: Creatinine Date Value Ref Range Status 08/01/2023 0.76 0.58 - 0.96 mg/dL Final 10/31/2019 0.90 0.58 - 0.96 mg/dL Final Estimated Glomerular Filtration Rate Date Value Ref Range Status 08/01/2023 87 >=60 mL/min/1.73m? Final Comment: Estimated Glomerular Filtration Rate (eGFR) is calculated using the 2020 CKD-EPI creatinine equation. This equation utilizes serum creatinine, sex, and age as parameters. The creatinine assay has traceable calibration to isotope dilution-mass spectrometry. Refer to KDIGO guidelines for clinical interpretation. In patients with unstable renal function, e.g. those with acute kidney injury, the eGFR may not accurately reflect actual GFR. eGFR- Date Value Ref Range Status 10/31/2019 >60 Final P.O.C.T. RESULTS: N/A August 01, 2023 TREATMENT: No Hydration needed. IV SITE: Ambulatory: A peripheral IV was started in the Right antecubital site with a Angio cath: 20 gauge. and A Saline lock was inserted per protocol IV SITE APPEARANCE: Clean,Dry and Intact SIGNATURE: Isabel Ambrose RN PATIENT NAME: Josh Huffman DATE: August 01, 2023 TIME: 4:05 PM [facility] 08-01-2023 Note HNO ID: [id number] Author: Saloni Kapoor RT(R) Service: Radiology Author Type: Technologist Type: Progress Notes Filed: 08/01/2023 4:17 PM Note Text: Radiology Service Progress Note PATIENT NAME: Josh Huffman DATE OF SERVICE: August 01, 2023 TIME: 4:17 PM PATIENT IDENTITY VERIFICATION COMPLETED USING TWO (2) IDENTIFIERS: Name and Date of confirmed by patient verbally and Name and Date of confirmed by identification band. FALL SCREENING: Has the patient had 2 falls in the last year or 1 fall with injury or currently using an Ambulatory Assistive Device (Walker, Cane, Wheelchair, Crutches, etc.)? No PATIENT GENDER DATA: Female. status: : No status: NO. 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 - aspirin, enteric coated (ECOTRIN LOW STRENGTH) 81 mg EC tablet Take 1 tablet by mouth once daily. - levothyroxine (SYNTHROID) 75 mcg tablet Take 75 mcg by mouth once daily. - triamcinolone acetonide (KENALOG) 0.1 % cream Apply to affected area twice daily. APPLY TO AFFECTED AREA - KELP ORAL Take by mouth once daily. - MILK THISTLE ORAL Take 1,000 mg by mouth once daily. - naproxen sodium (ALEVE) 220 mg cap Take by mouth twice daily. - lisinopril-hydrochlorothiazide 10-12.5 mg per tablet Take 1 tablet by mouth once daily. - metoprolol succinate XL, long acting, (TOPROL XL) 100 mg Tb24 Take by mouth. Letter Text Encounter Status:Closed by TRANG WHITTAKER on 08/01/23 [facility] 08-01-2023 Nurse Note Immunization Pt identified by name/date of . Previous RN gave COVID 23-24; PCV20; & RSV VIS sheet earlier today and provided patient with [facility] Immunization System Document. Pt afebrile and allergies reviewed. Pt tolerated injection well. See immunization section in epic. Pt. was identified by name and birthdate. Latex allergy: No Pend Hep C (needs completed once ages 18-79 years) done 2019 Pend HIV (needs completed once ages 13-64 years) pended Medications will be reviewed by MD. Medication list reviewed by RN. Importance of a current medication list discussed with pt. Patient verbalizes good understanding. Date of last Colonoscopy: 2012 Next Due: 2022 Immunizations Reviewed the following vaccines with patient. See also immunization section in Epic for vaccine history and vaccines patient received today. Td-n/a Tdap-2016 Pneumococcal- (Pneumovax 23)-VIS given, vaccine pended Prevnar 2015 PCV 20-VIS given, vaccine pended Hepatitis A-n/a Hepatitis B-n/a Influenza-07/2023 Shingrix-x2 Covid-19 2432-0931- VIS given, vaccine pended RSV- VIS given, vaccine pended See Immunization record in EPIC. Discussed with patient current recommendations from the CDC for routine adult immunizations. Questions answered. Pt. verbalizes understanding of information discussed. Provided patient with [facility] Immunization System Document and VIS sheet. VISUAL ACUITY Patient declines vision exam Date of Last Exam - scheduled in a few weeks [employer] Declined today BP Chon : BP Chon explained to pt. Questions answered. Pt. verbalizes understanding of information discussed. See BP Chon flowsheet for results. documented in this encounter [facility] 08-01-2023 History of Present illness Narrative Radiology Service Progress Note DATE OF SERVICE: August 01, 2023 TIME: 4:05 PM PATIENT WEIGHT: 216LBS PATIENT IDENTITY VERIFICATION COMPLETED USING TWO (2) STANDARD IDENTIFIERS: Name and Date of confirmed by patient verbally and Name and Date of confirmed by identification band. FALL SCREENING: Has the patient had 2 falls in the last year or 1 fall with injury or currently using an Ambulatory Assistive Device (Walker, Cane, Wheelchair, Crutches, etc.)? No PATIENT GENDER DATA: Female. status: : No status: NO. ALLERGIES: Reviewed and unchanged CONTRAST ALLERGY: No EXAM: CT -CONTRAST INDUCED NEPHROPATHY RISK FACTORS: Patient age > 60 years CREATININE: Creatinine Date Value Ref Range Status 08/01/2023 0.76 0.58 - 0.96 mg/dL Final 10/31/2019 0.90 0.58 - 0.96 mg/dL Final Estimated Glomerular Filtration Rate Date Value Ref Range Status 08/01/2023 87 >=60 mL/min/1.73m Final Comment: Estimated Glomerular Filtration Rate (eGFR) is calculated using the 2020 CKD-EPI creatinine equation. This equation utilizes serum creatinine, sex, and age as parameters. The creatinine assay has traceable calibration to isotope dilution-mass spectrometry. Refer to KDIGO guidelines for clinical interpretation. In patients with unstable renal function, e.g. those with acute kidney injury, the eGFR may not accurately reflect actual GFR. eGFR- Date Value Ref Range Status 10/31/2019 >60 Final P.O.C.T. RESULTS: N/A August 01, 2023 TREATMENT: No Hydration needed. IV SITE: Ambulatory: A peripheral IV was started in the Right antecubital site with a Angio cath: 20 gauge. and A Saline lock was inserted per protocol IV SITE APPEARANCE: Clean,Dry and Intact SIGNATURE: Isabel Ambrose RN PATIENT NAME: Josh Huffman DATE: August 01, 2023 TIME: 4:05 PM Radiology Service Progress Note PATIENT NAME: Josh Huffman DATE OF SERVICE: August 01, 2023 TIME: 4:17 PM PATIENT IDENTITY VERIFICATION COMPLETED USING TWO (2) IDENTIFIERS: Name and Date of confirmed by patient verbally and Name and Date of confirmed by identification band. FALL SCREENING: Has the patient had 2 falls in the last year or 1 fall with injury or currently using an Ambulatory Assistive Device (Walker, Cane, Wheelchair, Crutches, etc.)? No PATIENT GENDER DATA: Female. status: : No status: NO. PATIENT RELEVANT IMPLANT DATA REVIEWED: Yes RADIOLOGY DEPARTMENT: CT; Exam(s) Completed: Cardiac PERIPHERAL IV DATA: Site assessment: Clean,Dry and Intact, Site disposition Discontinued SIGNED BY: RT Iman(Gregg) August 01, 2023 4:17 PM documented in this encounter [facility] 08-01-2023 Note HNO ID: [id number] Author: Mirian Caba RT(R) Service: ? Author Type: Technologist Type: Progress Notes Filed: 08/01/2023 2:26 PM Note Text: Radiology Service Progress Note PATIENT NAME: Josh Huffman DATE OF SERVICE: August 01, 2023 TIME: 2:09 PM PATIENT IDENTITY VERIFICATION COMPLETED USING TWO (2) IDENTIFIERS: Name and Date of confirmed by patient verbally and Name and Date of confirmed by identification band. FALL SCREENING: Has the patient had 2 falls in the last year or 1 fall with injury or currently using an Ambulatory Assistive Device (Walker, Cane, Wheelchair, Crutches, etc.)? No PATIENT GENDER DATA: Female. status: : No status: NO. PATIENT RELEVANT IMPLANT DATA REVIEWED: Not Applicable RADIOLOGY DEPARTMENT: General X-ray: Exam(s) Completed: Lower Extremity X-Ray(s): Knee, AP / Lat / Tunne / Merchant Right PERIPHERAL IV DATA: Not applicable SIGNED BY: RT Chandler(R) August 01, 2023 2:09 PM [facility] 08-01-2023 History of Present illness Narrative Radiology Service Progress Note PATIENT NAME: Josh Huffman DATE OF SERVICE: August 01, 2023 TIME: 2:09 PM PATIENT IDENTITY VERIFICATION COMPLETED USING TWO (2) IDENTIFIERS: Name and Date of confirmed by patient verbally and Name and Date of confirmed by identification band. FALL SCREENING: Has the patient had 2 falls in the last year or 1 fall with injury or currently using an Ambulatory Assistive Device (Walker, Cane, Wheelchair, Crutches, etc.)? No PATIENT GENDER DATA: Female. status: : No status: NO. PATIENT RELEVANT IMPLANT DATA REVIEWED: Not Applicable RADIOLOGY DEPARTMENT: General X-ray: Exam(s) Completed: Lower Extremity X-Ray(s): Knee, AP / Lat / Tunne / Merchant Right PERIPHERAL IV DATA: Not applicable SIGNED BY: RT Chandler(R) August 01, 2023 2:09 PM documented in this encounter [facility] 08-01-2023 Note HNO ID: [id number] Author: Margot Reyes Tech Service: ? Author Type: Cleaning Maid Type: Progress Notes Filed: 08/01/2023 12:18 PM Note Text: Radiology Service Progress Note PATIENT NAME: Josh Huffman DATE OF SERVICE: August 01, 2023 TIME: 12:18 PM PATIENT IDENTITY VERIFICATION COMPLETED USING TWO (2) IDENTIFIERS: Name and Date of confirmed by patient verbally. FALL SCREENING: Has the patient had 2 falls in the last year or 1 fall with injury or currently using an Ambulatory Assistive Device (Walker, Cane, Wheelchair, Crutches, etc.)? No PATIENT GENDER DATA: Female. status: : No status: NO. PATIENT RELEVANT IMPLANT DATA REVIEWED: Not Applicable RADIOLOGY DEPARTMENT: Mammography PERIPHERAL IV DATA: Not applicable SIGNED BY: Melissa Son August 01, 2023 12:18 PM [facility] 08-01-2023 Note HNO ID: [id number] Author: Allan Partida MD Service: ? Author Type: Physician Type: Progress Notes Filed: 09/02/2023 11:32 AM Note Text: Ms. Josh Huffman is a 63 year old female from [facility], who presents for a comprehensive health evaluation. Last Executive Physical 10/[address] Bermudez. PRESENT COMPLAINTS: Comprehensive health evaluation. PRESENT MEDICATIONS: Lisinopril-hydrochlorothiazide 10-12.5 mg once daily in the morning. Toprol XL (metoprolol succinate) 100 mg once daily in the evening. Synthroid (levothyroxine) 100 mcg once daily 4x/week (/Th/Sat/Sun). Synthroid (levothyroxine) 112 mcg once daily 3x/week (Mon/Mon/Fri). Aspirin 81 mg once daily. Aleve (naproxen) 440 mg daily in the morning, 220 mg daily in the evening. Voltaren gel (diclofenac) applied to knee as needed. Vitamin B12 1000 mcg once daily. Vitamin D 2000 units once daily. Metamucil (psyllium fiber) scoop once daily. Milk thistle 1000 mg with dandelion root 500 mg once daily. Kelp (iodine supplement) 325 mcg once daily. MEDICATION ALLERGIES: None. PAST MEDICAL HISTORY: TIA (Transient Ischemic Attack) - 1987 (during first , diagnosed ASD, repaired at [facility] after delivery). ASD (Atrial Septal Defect) - 1987 (repaired at [facility] at age 27). Hypertension (on medication since 2012). Hypothyroidism - 2016. Menopausal state. Psoriasis (scalp). Right plantar fasciitis (treated with Tenex). Ascending aorta dilation (4.3 cm on non-contrast CT 10/2019). Normal coronary arteries, Coronary Calcium Score = 0 (10/2019). Hypercholesterolemia - 10/2019. 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 Prediabetes - 10/2019. Vitamin D deficiency - 10/2019. Low-normal Vitamin B12 - 10/2019. 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 Bilateral hip bursitis, treated with injection - 11/2021. Clinically diagnosed right knee osteoarthritis - 11/2021. 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 Tonsillectomy - 1975. Atrial septal defect repair - 1987 (at [facility]) LASIK - 2001 (Right) Colonoscopy - 07/23/2012 (hemorrhoids, diverticulosis, advised 10-year follow-up). Toe Surgery - 2012 (Tendon repairs due to step into groundhog hole, second surgery same year due to atrophic changes). Laser surg, greater and lesser saphenous veins, bilateral - 2017. Ultrasound guided plantar fasciotomy (Tenex) - 12/25/2020 (right foot). FAMILY HISTORY: Mother: at 92 in 11/2022; Lung cancer diagnosed late in life, cardiac stent placement at 69, pacemaker, psoriasis, psoriatic arthritis. Father: at 79; Prostate cancer metastasized to bone, brain aneurysm (no repair needed). Sister (Pamela): Melanoma. Brother (Brittni): Alcohol abuse, alcohol-related dementia (lives in SNF), Head injury at 29, throat cancer at age 61. Paternal Grandmother: Diabetes. Son (Esteban [id number]): Diabetes type 1. Son (Antonio [id number]): No known problems Son (Sorin [id number]): Hearing loss (hearing aids since age 4). SOCIAL HISTORY: Marital Status: to Tommy since 1981 with 3 children. Tobacco Use: Smoked 0.25 packs/day for 4 years. Quit 1979. Alcohol Use: Approximately 14 shots of scotch per week (2 glasses of scotch nightly). Drinks 2 cups of black coffee per day. No soft drink. Sleeps 7.5 - 8 hours per night, can be affected by hip/knee pain. No daytime sleepiness. No noted snoring or witnessed apnea. Diet: More attentive since 02/2023. Fruit, yogurt for breakfast; salad with chicken for lunch; poultry 2x/week, beef/pork 2-3x/week, shellfish or fish 2-3x/week, with vegetables, fruit for dinner. Before 02/2023 was eating more fast/quick food and late in evening. Exercise: More regular since 02/2023. Walking 30-45mins 3-4x/week, swimming in summer, band resistance exercises 3-4x/week but not in past few months. OCCUPATIONAL HISTORY: [employer] 50 hours per week and travels 5% of the time. Mild stress level at work reported. Anticipates long term within next 2 years. REVIEW OF SYSTEMS: Feels rather well in general. Weight has been down about 10 pounds in the past year. No chest pain, palpitations, shortness of breath, lightheadedness with exertion, claudication, or edema. Checks BP about 1/month, usually 120-130/80-85 in daytime, lower in evening. Not able to take as deep a breath as in past before had COVID in [id number]. Not affecting ability to walk. No persistent heartburn. No changes in bowel habits. No urinary difficulties. Last Pap in 2019, never had abnormal Pap. Last mammogram and breast exam 2019. Knee osteoarthritis and hip bursitis, affecting sleep and ability to exercise more rigorously. Taking Aleve (naproxen) 220 mg regularly, occasionally uses Voltaren gel (diclofenac). Injections in hip bursas in 2021 was helpful. The rest of the review of symptoms is unremarkable. PHYSICAL EXAMINATION: VITAL SIGNS: BP 128/85 Pulse 80 Temp 36.5 ?C (more content not included)... [facility] 08-01-2023 Note HNO ID: [id number] Author: Claudia Ponce AUD Service: ? Author Type: Senior Product Marketing Manager Type: Progress Notes Filed: 08/01/2023 10:05 AM Note Text: EXECUTIVE PHYSICAL: HEARING SUMMARY Referred by: Allan Partida M.D. This patient was seen for puretone air conduction thresholds as part of a physical examination in [place] [id number]. A brief case history and puretone air conduction thresholds were obtained. BRIEF CASE HISTORY: Patient reported the following history of: known hearing loss; noise exposure COMMUNICATION FUNCTION SCREENIN. Does a hearing problem cause you to feel frustrated when talking to members of your family? No 2. Does a hearing problem cause you difficulty hearing/understanding co-workers, clients, or customers? No 3. Do you feel that any difficulty with your hearing limits or hampers your personal or social life? No HEARING SENSITIVITY RESULTS: Refer to the [facility] air conduction thresholds. NOTE: Testing involved assessment of air conduction thresholds only. The results should not be considered a comprehensive diagnostic audiologic evaluation. RIGHT EAR: Within normal limits 250-4000 Hz; mild hearing loss responses 5006-2371 Hz. LEFT EAR: Within normal limits 250-6000 Hz; mild hearing loss response at 8000 Hz. RIGHT EAR LEFT EAR MINI BAR ATTENDANT 1* Average of 500, 1000, AND 2000 Hz 13 dB 12 dB MINI BAR ATTENDANT 2* Average of 3000, 4000, AND 6000 Hz 20 dB 18 dB COMPARISON: Asymmetry: No significant asymmetry was present between the right and left ears. NOTE: Asymmetry is defined as a difference between ears of > 15 dB for MINI BAR ATTENDANT 1 and/or > 30 dB for MINI BAR ATTENDANT 2 (AAO-HNS, 1997) Change: No significant change in air conduction thresholds from the previous test obtained on 10/31/2019 was noted. NOTE: A significant change is defined as a difference of > 15 dB for MINI BAR ATTENDANT 1 and/or > 20 dB for MINI BAR ATTENDANT 2 (AAO-HNS, 1997) RECOMMENDATIONS: *Results suggest normal hearing sensitivity of both ears at the majority of test frequencies. Retest as medically indicated. *Use hearing protective devices when exposed to loud noise to promote hearing loss prevention. ALLEN Andrews Licensed Audiology Aide [facility] # [id number] I verify that I have reviewed the history and test results, and I completed the interpretation and recommendations for this testing. González Mehta, [facility] Supervising Senior Product Marketing Manager DEFINITIONS: * Puretone Average (MINI BAR ATTENDANT) MINI BAR ATTENDANT 1 average of thresholds at 500, 1000, and 2000 Hz MINI BAR ATTENDANT 2 average of thresholds at 3000, 4000, and 6000 Hz Severity Descriptors Severity Range of intensity in decibels (dB) Normal 0-25 dB Mild 25-45 dB Moderate 45-60 dB Severe 60-90 dB Profound 90+ dB [facility] 08-01-2023 History of Present illness Narrative Radiology Service Progress Note PATIENT NAME: Josh Huffman DATE OF SERVICE: August 01, 2023 TIME: 12:18 PM PATIENT IDENTITY VERIFICATION COMPLETED USING TWO (2) IDENTIFIERS: Name and Date of confirmed by patient verbally. FALL SCREENING: Has the patient had 2 falls in the last year or 1 fall with injury or currently using an Ambulatory Assistive Device (Walker, Cane, Wheelchair, Crutches, etc.)? No PATIENT GENDER DATA: Female. status: : No status: NO. PATIENT RELEVANT IMPLANT DATA REVIEWED: Not Applicable RADIOLOGY DEPARTMENT: Mammography PERIPHERAL IV DATA: Not applicable SIGNED BY: Melissa Son August 01, 2023 12:18 PM documented in this encounter [facility] 08-01-2023 History of Present illness Narrative Ms. Josh Huffman is a 63 year old female from [facility], who presents for a comprehensive health evaluation. Last Executive Physical 10/[address] Bermudez. PRESENT COMPLAINTS: Comprehensive health evaluation. PRESENT MEDICATIONS: Lisinopril-hydrochlorothiazide 10-12.5 mg once daily in the morning. Toprol XL (metoprolol succinate) 100 mg once daily in the evening. Synthroid (levothyroxine) 100 mcg once daily 4x/week (/Th/Sat/Sun). Synthroid (levothyroxine) 112 mcg once daily 3x/week (Mon/Wed/Fri). Aspirin 81 mg once daily. Aleve (naproxen) 440 mg daily in the morning, 220 mg daily in the evening. Voltaren gel (diclofenac) applied to knee as needed. Vitamin B12 1000 mcg once daily. Vitamin D 2000 units once daily. Metamucil (psyllium fiber) scoop once daily. Milk thistle 1000 mg with dandelion root 500 mg once daily. Kelp (iodine supplement) 325 mcg once daily. MEDICATION ALLERGIES: None. PAST MEDICAL HISTORY: TIA (Transient Ischemic Attack) - 1987 (during first , diagnosed ASD, repaired at [facility] after delivery). ASD (Atrial Septal Defect) - 1987 (repaired at [facility] at age 27). Hypertension (on medication since 2012). Hypothyroidism - 2016. Menopausal state. Psoriasis (scalp). Right plantar fasciitis (treated with Tenex). Ascending aorta dilation (4.3 cm on non-contrast CT 10/2019). Normal coronary arteries, Coronary Calcium Score = 0 (10/2019). Hypercholesterolemia - 10/2019. 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 Prediabetes - 10/2019. Vitamin D deficiency - 10/2019. Low-normal Vitamin B12 - 10/2019. 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 Bilateral hip bursitis, treated with injection - 11/2021. Clinically diagnosed right knee osteoarthritis - 11/2021. 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 Tonsillectomy - 1975. Atrial septal defect repair - 1987 (at [facility]) LASIK - 2001 (Right) Colonoscopy - 07/23/2012 (hemorrhoids, diverticulosis, advised 10-year follow-up). Toe Surgery - 2012 (Tendon repairs due to step into groundhog hole, second surgery same year due to atrophic changes). Laser surg, greater and lesser saphenous veins, bilateral - 2017. Ultrasound guided plantar fasciotomy (Tenex) - 12/25/2020 (right foot). FAMILY HISTORY: Mother: at 92 in 11/2022; Lung cancer diagnosed late in life, cardiac stent placement at 69, pacemaker, psoriasis, psoriatic arthritis. Father: at 79; Prostate cancer metastasized to bone, brain aneurysm (no repair needed). Sister (Pamela): Melanoma. Brother (Brittni): Alcohol abuse, alcohol-related dementia (lives in SNF), Head injury at 29, throat cancer at age 61. Paternal Grandmother: Diabetes. Son (Esteban [id number]): Diabetes type 1. Son (Antonio [id number]): No known problems Son (Sorin [id number]): Hearing loss (hearing aids since age 4). SOCIAL HISTORY: Marital Status: to Tommy since 1981 with 3 children. Tobacco Use: Smoked 0.25 packs/day for 4 years. Quit 1979. Alcohol Use: Approximately 14 shots of scotch per week (2 glasses of scotch nightly). Drinks 2 cups of black coffee per day. No soft drink. Sleeps 7.5 - 8 hours per night, can be affected by hip/knee pain. No daytime sleepiness. No noted snoring or witnessed apnea. Diet: More attentive since 02/2023. Fruit, yogurt for breakfast; salad with chicken for lunch; poultry 2x/week, beef/pork 2-3x/week, shellfish or fish 2-3x/week, with vegetables, fruit for dinner. Before 02/2023 was eating more fast/quick food and late in evening. Exercise: More regular since 02/2023. Walking 30-45mins 3-4x/week, swimming in summer, band resistance exercises 3-4x/week but not in past few months. OCCUPATIONAL HISTORY: [employer] Works 50 hours per week and travels 5% of the time. Mild stress level at work reported. Anticipates long term within next 2 years. REVIEW OF SYSTEMS: Feels rather well in general. Weight has been down about 10 pounds in the past year. No chest pain, palpitations, shortness of breath, lightheadedness with exertion, claudication, or edema. Checks BP about 1/month, usually 120-130/80-85 in daytime, lower in evening. Not able to take as deep a breath as in past before had COVID in [id number]. Not affecting ability to walk. No persistent heartburn. No changes in bowel habits. No urinary difficulties. Last Pap in 2019, never had abnormal Pap. Last mammogram and breast exam 2019. Knee osteoarthritis and hip bursitis, affecting sleep and ability to exercise more rigorously. Taking Aleve (naproxen) 220 mg regularly, occasionally uses Voltaren gel (diclofenac). Injections in hip bursas in 2021 was helpful. The rest of the review of symptoms is unremarkable. PHYSICAL EXAMINATION: VITAL SIGNS: BP 128/85 Pulse 80 Temp 36.5 C (97.7 F) (Temporal Artery) Ht 175.3 cm (5' 9.02 ) Wt 98.1 kg (216 lb 4.3 oz) BMI 31.92 kg/m GENERAL APPEARANCE: Alert, well appearing, obese, and in no acute distress. SKIN: Skin color, texture, turgor normal. No suspicious rashes or lesions. HEAD: No significant findings. EYES: PERRLA, EOMI, conjunctiva pink, anicteric sclerae. EARS: External ears normal. Canals clear. TMs normal. NOSE/SINUSES: External nares normal. Clear nasal passages. No sinus tenderness. OROPHARYNX: Moist mucous membranes. No masses or lesions. No sublingual icterus or pallor. Oropharynx normal. NECK: Supple, no lymphadenopathy, normal thyroid, no carotid bruits, and no JVD. BACK: Back symmetric, normal curvature, no costovertebral angle tenderness. LUNGS: Clear to auscultation and percussion throughout all lung dudley, chest rise is even. HEART: Normal PMI, regular rhythm, normal S1 and S2 heart sounds, no gallop, and no murmurs. BREASTS: Symmetrical to inspection., No dimpling or skin changes., Normal consistency, no palpable masses., Normal nipples without discharge., No axillary lymphadenopathy. ABDOMEN: ~2cm ventral hernia midline upper abdomen. Normal bowel sounds, no abdominal bruits. Obese, soft, non-tender, no palpable masses, and no hepatosplenomegaly so far as body habitus allows for exam. EXTREMITIES: No deformities, no skin discoloration, no edema, normal pulses bilaterally. NEURO: Awake, alert and oriented x 3, Cranial nerves II-XII grossly intact, Reflexes brisk and symmetrical, Normal gait, and No involuntary motions. GENITALIA: Deferred. CONCLUSIONS: Routine general medical examination at a health care facility (primary encounter diagnosis) Hypercholesterolemia Elevated lipoprotein(a) Hypertension Normal coronary arteries, coronary calcium score = 0 (10/2019) Ascending aorta dilation (4.3 cm on non-contrast ct 10/2019, and on ct angiogram 07/2023) Prediabetes Obesity, class i, bmi 30-34.9 Hypothyroidism Vitamin d deficiency Elevated uric acid in blood Primary osteoarthritis of right knee Bursitis of both hips, unspecified bursa Ventral hernia without obstruction or gangrene Colon cancer screening Need for vaccination Screening for hiv without presence of risk factors See letter for final conclusions based on pending results. RECOMMENDATIONS: I recommend a statin cholesterol-lowering medication to address lipids and lp(a), will discuss further with PCP Prediabetes recommendations Uric acid recommendations CTA chest: Unchanged ascending aorta, recommend rechecking in 1-2 years. There are markings Groundglass opacities in the left upper lobe which may be remnant of COVID; if any difficulty breathing or sense of of unable to take deep breath persists/worsens, then would recommend Pulmonology consultation. Ortho consult for right knee Gen surg consult for ventral hernia. See letter for final recommendations based on pending results. Allan Partida MD documented in this encounter [facility] 08-01-2023 Note HNO ID: [id number] Author: Trang Whittaker RD Service: ? Author Type: Registered Dietitian Type: Progress Notes Filed: 08/01/2023 9:25 AM Note Text: [facility] Nutrition Progress Note Josh Huffman [id number] Assessment Physical Findings: Current Weight and Height: 98.1 kg (216 lb 3.2 oz) 175.3 cm (5' 9 ) Body mass index is 31.93 kg/m?. [place] BMI: 18.5-24.9 Percent body fat: 46.6 %, [place] body fat percentage is 18-28% for female. 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 Dinner: protein, salad, sometimes no starch. Almost always has a fruit. Sometimes will just have a potato. Taught herself how to cook salmon- has it a few times per week. Cooks with cheese sometimes. Pizza once every 2 weeks. Snack: loves salty snacks- tries to stay away from them. Doesn't really do dessert. Beverages: Coffee 2 cups/day - black, Water 64 oz/day Other: sparkling water or diet squirt ETOH: 2 scotch drinks/ day- scotch on the rocks (3.5oz per night) Dining Out: 1 meal/ week Nutrition Supplements: B-12, D3, milk thistle, iodine, meta mucil Allergies: Patient has no known allergies. Past Medical History PAST MEDICAL HISTORY Diagnosis Date ASD (atrial septal defect) repaired at [facility] at age 27 Heel spur HTN (hypertension) Hypothyroid levothyroxine 75 mcg Menopausal state (normal spontaneous vaginal delivery) 1987, 1989, 1993 1987: 8'12 ; 1989 9'3 ; 1993: 9'1 Pap smear for cervical cancer screening 2016 Plantar fasciitis Psoriasis TIA (transient ischemic attack) 1987 during first , diagnosed ASD, repaired at [facility] after delivery Labs: available nutrition-related labs reviewed - not resulted at time of appointment Medications: reviewed in chart and medical history questionnaire Malnutrition Screening Significant unintentional weight loss? No Eating less than 75% of usual intake for more than 2 weeks? No Learning Readiness: Motivation to Learn: Interested - Wants to learn Family/Significant Other Support: Unable - Family not present Cognitive Ability: Alert and Oriented Patient learns best by: Individual Instruction Factors affecting learning: None Physical limitation affecting learning: None Educational materials provided: None this visit Assessment: Body composition showing class 1 obese female per BMI standards with body fat 18.6% in excess and a waist circumference 8.5 above recommended. Waist to hip ratio and visceral fat are above ideal ranges. Weight History/Weight Change: pt reports weight has been stable over the past year. Pt has lost 10.7# BW and lost 4.8# SMM since last [facility] physical in 10/2019. Food recall showing: Undesirably Exceeding Standard Recommendations for - red meat (filet mignon, pepperoni, pork tenderloins) Meeting Standard Recommendations for - fish, fruit, nuts/ seeds, vegetables Below Standard Recommendations for - beans/ lentils, whole grains, dairy Patient is interested in continued healthy habits to gradually lose weight. Patient's main barrier/s to change: none. Pt has made very healthy lifestyle changes since the passing of her mother earlier this year and having extra time to dedicate to herself. Pt has been practicing mindfulness while eating and makes very conscious choices for her health like including plenty of fruits and vegetables. Nutrition Diagnosis: Behavioral-Environmental: Food and nutrition related knowledge deficit, related to, lack of prior exposure to information , as evidenced by verbalizes inaccurate information and verbalizes incomplete information. Nutrition Monitoring AND Evaluation: Implement dietary recommendations to support your goals to continue eating a general healthy diet and optimize your body composition. Nutrition Interventions: Comprehensive nutrition evaluation focused on health promotion. Plan General Healthy Eating: Eat a variety of foods from all food groups including a variety of colors. Different colors provide you with different nutrients and antioxidants. (more content not included)... [facility] 08-01-2023 History of Present illness Narrative EXECUTIVE PHYSICAL: HEARING SUMMARY Referred by: Allan Partida M.D. This patient was seen for puretone air conduction thresholds as part of a physical examination in [facility], [place] [id number]. A brief case history and puretone air conduction thresholds were obtained. BRIEF CASE HISTORY: Patient reported the following history of: known hearing loss; noise exposure COMMUNICATION FUNCTION SCREENIN. Does a hearing problem cause you to feel frustrated when talking to members of your family? No 2. Does a hearing problem cause you difficulty hearing/understanding co-workers, clients, or customers? No 3. Do you feel that any difficulty with your hearing limits or hampers your personal or social life? No HEARING SENSITIVITY RESULTS: [facility] the [facility] conduction thresholds. NOTE: Testing involved assessment of air conduction thresholds only. The results should not be considered a comprehensive diagnostic audiologic evaluation. RIGHT EAR: Within normal limits 250-4000 Hz; mild hearing loss responses 8941-9697 Hz. LEFT EAR: Within normal limits 250-6000 Hz; mild hearing loss response at 8000 Hz. RIGHT EAR LEFT EAR MINI BAR ATTENDANT 1* Average of 500, 1000, & 2000 Hz 13 dB 12 dB MINI BAR ATTENDANT 2* Average of 3000, 4000, & 6000 Hz 20 dB 18 dB COMPARISON: Asymmetry: No significant asymmetry was present between the right and left ears. NOTE: Asymmetry is defined as a difference between ears of > 15 dB for MINI BAR ATTENDANT 1 and/or > 30 dB for MINI BAR ATTENDANT 2 (AAO-HNS, 1997) Change: No significant change in air conduction thresholds from the previous test obtained on 10/31/2019 was noted. NOTE: A significant change is defined as a difference of > 15 dB for MINI BAR ATTENDANT 1 and/or > 20 dB for MINI BAR ATTENDANT 2 (AAO-HNS, 1997) RECOMMENDATIONS: *Results suggest normal hearing sensitivity of both ears at the majority of test frequencies. Retest as medically indicated. *Use hearing protective devices when exposed to loud noise to promote hearing loss prevention. ALLEN Andrews Licensed Audiology Aide [facility] # [id number] I verify that I have reviewed the history and test results, and I completed the interpretation and recommendations for this testing. González Mehta, [facility] Supervising Senior Product Marketing Manager DEFINITIONS: * Puretone Average (MINI BAR ATTENDANT) MINI BAR ATTENDANT 1 average of thresholds at 500, 1000, and 2000 Hz MINI BAR ATTENDANT 2 average of thresholds at 3000, 4000, and 6000 Hz Severity Descriptors Severity Range of intensity in decibels (dB) Normal 0-25 dB Mild 25-45 dB Moderate 45-60 dB Severe 60-90 dB Profound 90+ dB documented in this encounter [facility] 08-01-2023 History of Present illness Narrative [facility] Nutrition Progress Note Josh Huffman [id number] Assessment Physical Findings: Current Weight and Height: 98.1 kg (216 lb 3.2 oz) 175.3 cm (5' 9 ) Body mass index is 31.93 kg/m . [place] BMI: 18.5-24.9 Percent body fat: 46.6 %, [place] body fat percentage is 18-28% for female. 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 Dinner: protein, salad, sometimes no starch. Almost always has a fruit. Sometimes will just have a potato. Taught herself how to cook salmon- has it a few times per week. Cooks with cheese sometimes. Pizza once every 2 weeks. Snack: loves salty snacks- tries to stay away from them. Doesn't really do dessert. Beverages: Coffee 2 cups/day - black, Water 64 oz/day Other: sparkling water or diet squirt ETOH: 2 scotch drinks/ day- scotch on the rocks (3.5oz per night) Dining Out: 1 meal/ week Nutrition Supplements: B-12, D3, milk thistle, iodine, meta mucil Allergies: Patient has no known allergies. Past Medical History PAST MEDICAL HISTORY Diagnosis Date ASD (atrial septal defect) repaired at [facility] at age 27 Heel spur HTN (hypertension) Hypothyroid levothyroxine 75 mcg Menopausal state (normal spontaneous vaginal delivery) 1987, 1989, 1993 1987: 8'12 ; 1989 9'3 ; 1993: 9'1 Pap smear for cervical cancer screening 2016 Plantar fasciitis Psoriasis TIA (transient ischemic attack) 1987 during first , diagnosed ASD, repaired at [facility] after delivery Labs: available nutrition-related labs reviewed - not resulted at time of appointment Medications: reviewed in chart and medical history questionnaire Malnutrition Screening Significant unintentional weight loss? No Eating less than 75% of usual intake for more than 2 weeks? No Learning Readiness: Motivation to Learn: Interested - Wants to learn Family/Significant Other Support: Unable - Family not present Cognitive Ability: Alert and Oriented Patient learns best by: Individual Instruction Factors affecting learning: None Physical limitation affecting learning: None Educational materials provided: None this visit Assessment: Body composition showing class 1 obese female per BMI standards with body fat 18.6% in excess and a waist circumference 8.5 above recommended. Waist to hip ratio and visceral fat are above ideal ranges. Weight History/Weight Change: pt reports weight has been stable over the past year. Pt has lost 10.7# BW and lost 4.8# SMM since last executive health physical in 10/2019. Food recall showing: Undesirably Exceeding Standard Recommendations for - red meat (filet mignon, pepperoni, pork tenderloins) Meeting Standard Recommendations for - fish, fruit, nuts/ seeds, vegetables Below Standard Recommendations for - beans/ lentils, whole grains, dairy Patient is interested in continued healthy habits to gradually lose weight. Patient's main barrier/s to change: none. Pt has made very healthy lifestyle changes since the passing of her mother earlier this year and having extra time to dedicate to herself. Pt has been practicing mindfulness while eating and makes very conscious choices for her health like including plenty of fruits and vegetables. Nutrition Diagnosis: Behavioral-Environmental: Food and nutrition related knowledge deficit, related to, lack of prior exposure to information , as evidenced by verbalizes inaccurate information and verbalizes incomplete information. Nutrition Monitoring & Evaluation: Implement dietary recommendations to support your goals to continue eating a general healthy diet and optimize your body composition. Nutrition Interventions: Comprehensive nutrition evaluation focused on health promotion. Plan General Healthy Eating: Eat a variety of foods from all food groups including a variety of colors. Different colors provide you with different nutrients and antioxidants. Aim for 1/2 plate of vegetables, 1/4 plate of high fiber carb (whole grains, fruits, peas/corn, etc.), and 1/4 plate of lean protein foods (low fat meat, fish, low fat dairy, starchy beans, tofu/edamame, etc.) for at least 2 meals per day. Include a serving of fruit with meals or snacks at least twice per day. Eat at least 3 times throughout the day including at least 3 food groups at each meal, and at least 2 food groups at each snack. Aim to include a fruit and/or vegetable with every meal and snack. Aim for 3 servings of vegetables per day. A serving is 2 cups salad, 1/2 cup cooked vegetables, or 1 cup raw vegetables. Consider calcium-fortified almond, soy, or other plant-based milk paired with leafy green vegetables to better meet your calcium needs on days you do not consume 2 servings of dairy products (8oz low-fat milk, 8oz low-fat yogurt, or 1oz cheese is one serving). Choose fish twice per week, or plant-based omega-3s daily - rashida seeds, ground flax seeds, and walnuts are all good plant-based sources. Limit red meat to 0-1 serving per week, and limit processed meats (lau, deli meats, etc.) as much as is realistic for optimal health. Incorporate some starchy beans (black beans, bacon beans, lentils, etc.) to increase soluble fiber and reduce meat portions. This may help cholesterol. Aim for at least 1/2 cup 3 times per week. Bone Health and Muscle Maintenance/Gain: Adequate calcium and vitamin D are important for bone health. Adequate protein and calorie intake and strength training are important for both bone health and maintenance/gain of muscle. Follow executive health physician recommendations/prescriptions regarding vitamin D supplementation. Vitamin D supplements are best absorbed when taken with the largest, highest fat meal of the day. Add calcium-fortified almond, soy, or other plant-based milk and with leafy green vegetables throughout the day to better meet your calcium needs on days you do not have 2 servings of dairy. Eat high protein foods (totaling 15-25g) three times daily to ensure adequate protein intake throughout the day. Consume at least 1500 calories per day to meet your minimum needs for muscle/bone health. More calories will be needed if you are active or looking to maintain total body weight. Follow executive health physician guidance regarding activity limitations. Strength training exercise can help to gain muscle and strengthen bones. Follow recommendations from exercise physiology regarding strength training. Specific Modifications: We discussed making the following changes to your meals/snacks to best support your health goals. Consider limiting your alcohol intake to a maximum of 1.5oz liquor per day. This can be done by first cutting the liquor with water or adding more ice to your cup. Consider cutting down your red and processed meat consumption as much as is realistic. Start by switching one of your red meat meals out for chicken or fish. Aim to prioritize protein and fiber at each meal. This will help you feel full and satisfied. Remember that small changes will help you accomplish large goals. Losing weight at a slow and steady rate will help with longevity and sustained results. Limiting just 100 calories per day for a year would give you 10 lbs of weight loss. Criteria: lab values, body composition/weight, food recall, patient input Follow up: at next [facility] Referred/Supervised by: Jaquan/Della Consult Billing Type: body composition rate MNT: ea 15 minutes, 4 increments Signed by: Trang Whittaker RD documented in this encounter [facility] 07-26-2023 Miscellaneous Notes CTA chest ordered. Previsit call completed. confirmed. Reviewed department guidelines/changes with pt in regard to covid 19-pt verbalized understanding. Additional consults: none Q: sent in yesterday per pt, not in Epic during call Per 2019 letter, Regarding the ascending aorta, we will plan to schedule a follow-up CTA scan of the thoracic aorta in one year when you return to [facility] to confirm stability. Dr. Partida, pt has not completed. Do you want to order? documented in this encounter [facility] 02-02-2021 Note HNO ID: [id number] Author: Dean Maya MD Service: ? Author Type: Physician Type: Progress Notes Filed: 02/02/2021 9:50 AM Note Text: HPI: Josh Huffman is a 60 year old female whose complaint is documented in pain description below. The patient presents for virtual visit on HIPAA compliant platform. Post-op plantar fasciotomy. Is having no pain at this stage. Is walking 2 miles a day, without pain. 'I'm having no issues'. Is wearing ankle brace that Julee gave for OA in ankle-which she wears all day. Feels like this is helpful to her with her walking activity. No pain first thing in the morning, as she had in the past. Wishes to get ready for 3 mile walking-which she did in the past. Plans to do some exercise in pool. Planning [place] [place]. PAIN EVALUATION No data found in the last 1 encounters. History/Data Reviewed: PAST MEDICAL HISTORY Diagnosis Date - ASD (atrial septal defect) repaired at [facility] at age 27 - Heel spur - HTN (hypertension) - Hypothyroid levothyroxine 75 mcg - Menopausal state - (normal spontaneous vaginal delivery) 1987, 1989, 1993 1987: 8'12 ; 1989 9'3 ; 1993: 9'1 - Pap smear for cervical cancer screening 2016 - Plantar fasciitis - Psoriasis - TIA (transient ischemic attack) 1987 during first , diagnosed ASD, repaired at [facility] after delivery PAST SURGICAL HISTORY Procedure Laterality Date - EXTENSIVE FOOT SURGERY - HEART SURGERY HX 1987 at [facility], atrial septal defect repair - LASIK Right 2001 - PAST SURGICAL HISTORY OF 2018 laser surg, greater and lesser saphenous veins - REMOVAL SPLEEN, TOTAL 1969 traumatic - SCRN COLONOSCOP 2013 10 yr f/u - SKIN BIOPSY HX benign - TOE SURGERY HX 2012 tendon repairs due to step into groundhog hole, second surgery due to atrophic changes - TONSILLECTOMY HX 1975 Social History Tobacco Use - Smoking status: Former Smoker Packs/day: 0.25 Years: 4.00 Pack years: 1.00 Types: Cigarettes Start date: 10/16/1975 Quit date: 10/16/1979 Years since quittin.3 - Smokeless tobacco: Never Used - Tobacco comment: 4-5 cigarettes/day Vaping Use - Vaping Use: Never used Substance Use Topics - Alcohol use: Yes Alcohol/week: 23.3 standard drinks Types: 14 Shots of liquor per week Comment: scotch, nightly - Drug use: Never Current Outpatient Medications Medication Sig - aspirin, enteric coated (ECOTRIN LOW STRENGTH) 81 mg EC tablet Take 1 tablet by mouth once daily. - levothyroxine (SYNTHROID) 75 mcg tablet Take 75 mcg by mouth once daily. - triamcinolone acetonide (KENALOG) 0.1 % cream Apply to affected area twice daily. APPLY TO AFFECTED AREA - KELP ORAL Take by mouth once daily. - MILK THISTLE ORAL Take 1,000 mg by mouth once daily. - naproxen sodium (ALEVE) 220 mg cap Take by mouth twice daily. - lisinopril-hydrochlorothiazide 10-12.5 mg per tablet Take 1 tablet by mouth once daily. - metoprolol succinate XL, long acting, (TOPROL XL) 100 mg Tb24 Take by mouth. No current facility-administered medications for this visit. ALLERGIES No Known Allergies There were no vitals taken for this visit. Video Enabled Exam: Gen: Pt is a well appearing female in NAD Head: NC/AT Eyes: Sclera clear; EOMI ASSESSMENT: (M72.2) Plantar fasciitis of right foot (primary encounter diagnosis) PLAN: ? Now ~5 weeks post op. Doing very well. ? Cleared to slowly increase exercise activity to goal of 3 mi/day ? Discussed training for vacation to [place] in March ? FU with us in future as needed-will communicate with Dr. Ladd if she wishes scheduled fu for OA in foot? Return if symptoms worsen or fail to improve. Part of this note has been created using voice recognition software. It may contain errors which are inherent in voice-recognition technology. Dean Maya MD [facility] 01-06-2021 Note HNO ID: [id number] Author: Dean Maya MD Service: ? Author Type: Physician Type: Progress Notes Filed: 01/06/2021 8:55 AM Note Text: HPI: Josh Huffman is a 60 year old female whose complaint is documented in pain description below. Patient is here for post op PCUSF right foot. Now about 1.5 wks after the procedure. Very little pain in the heel, otherwise much better. PAIN EVALUATION No data found in the last 1 encounters. PAST MEDICAL HISTORY Diagnosis Date - ASD (atrial septal defect) repaired at [facility] at age 27 - Heel spur - HTN (hypertension) - Hypothyroid levothyroxine 75 mcg - Menopausal state - (normal spontaneous vaginal delivery) 1987, 1989, 1993 1987: 8'12 ; 1989 9'3 ; 1993: 9'1 - Pap smear for cervical cancer screening 2016 - Plantar fasciitis - Psoriasis - TIA (transient ischemic attack) 1987 during first , diagnosed ASD, repaired at [facility] after delivery PAST SURGICAL HISTORY Procedure Laterality Date - EXTENSIVE FOOT SURGERY - HEART SURGERY HX 1987 at [facility], atrial septal defect repair - LASIK Right 2002 - PAST SURGICAL HISTORY OF 2018 laser surg, greater and lesser saphenous veins - REMOVAL SPLEEN, TOTAL 1968 traumatic - SCRN COLONOSCOP 2013 10 yr f/u - SKIN BIOPSY HX benign - TOE SURGERY HX 2013 tendon repairs due to step into groundhog hole, second surgery due to atrophic changes - TONSILLECTOMY HX 1975 Social History Tobacco Use - Smoking status: Former Smoker Packs/day: 0.25 Years: 4.00 Pack years: 1.00 Types: Cigarettes Start date: 10/16/1975 Quit date: 10/16/1979 Years since quittin.2 - Smokeless tobacco: Never Used - Tobacco comment: 4-5 cigarettes/day Vaping Use - Vaping Use: Never used Substance Use Topics - Alcohol use: Yes Alcohol/week: 23.3 standard drinks Types: 14 Shots of liquor per week Comment: scotch, nightly - Drug use: Never Current Outpatient Medications Medication Sig - aspirin, enteric coated (ECOTRIN LOW STRENGTH) 81 mg EC tablet Take 1 tablet by mouth once daily. - KELP ORAL Take by mouth once daily. - levothyroxine (SYNTHROID) 75 mcg tablet Take 75 mcg by mouth once daily. - triamcinolone acetonide (KENALOG) 0.1 % cream Apply to affected area twice daily. APPLY TO AFFECTED AREA - MILK THISTLE ORAL Take 1,000 mg by mouth once daily. - naproxen sodium (ALEVE) 220 mg cap Take by mouth twice daily. - lisinopril-hydrochlorothiazide 10-12.5 mg per tablet Take 1 tablet by mouth once daily. - metoprolol succinate XL, long acting, (TOPROL XL) 100 mg Tb24 Take by mouth. No current facility-administered medications for this visit. ALLERGIES No Known Allergies Resp 18 Ht 5' 9.5 (1.77m) Wt 225 lb (102.1kg) BMI 32.76 kg/(m2). Exam: Rt foot: Normal appearance, incision CDI. No TTP over plantar foot. Good strength around foot/ankle. ASSESSMENT: (M72.2) Plantar fasciitis of right foot (primary encounter diagnosis) PLAN: Medical Decision Risks I have discussed the risks and benefits of the following treatments with patient today: Home exercise intervention and Return to exercise program/sport ? Discussed HEP and increase in activity/exercise. ? Doing well, ok to transition back to shoes. Return in about 4 weeks (around 02/03/2021) for Virtual Visit Follow Up. Part of this note has been created using voice recognition software. It may contain errors which are inherent in voice-recognition technology. Dean aMya MD [facility] 12-02-2020 Note HNO ID: [id number] Author: Dean Maya MD Service: ? Author Type: Physician Type: Progress Notes Filed: 12/03/2020 9:57 AM Note Text: HPI: Josh Huffman is a 60 year old female whose complaint is documented in pain description below. Patient is here for right plantar fasciitis. Sent by Dr. Ladd after MRI. 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 Hx of plantar fasciitis, exercises, night splint, orthotics, electromagnetic pulse tx; offered stem cell but turned it down. Notes that her primary problem has been plantar heel pain for several years. Is frustrated by the lack of improvement, and even worsening with treatment by toggle press folder and feeder at outside location. Has been seen by Dr. Ladd and sent here for consideration for percutaneous fasciotomy. PAIN EVALUATION 12/02/2020 0821 Pain Level: 8 Pain Location: Heel-Right Description: Aching Duration Amount of Time: 2.5 Duration Units: Years Frequency: Continuous Intervention: Exercise;Medication PAST MEDICAL HISTORY Diagnosis Date - ASD (atrial septal defect) repaired at [facility] at age 27 - Heel spur - HTN (hypertension) - Hypothyroid levothyroxine 75 mcg - Menopausal state - (normal spontaneous vaginal delivery) 1987, 1989, 1993 1987: 8'12 ; 1989 9'3 ; 1993: 9'1 - Pap smear for cervical cancer screening 2016 - Plantar fasciitis - Psoriasis - TIA (transient ischemic attack) 1988 during first , diagnosed ASD, repaired at [facility] after delivery PAST SURGICAL HISTORY Procedure Laterality Date - EXTENSIVE FOOT SURGERY - HEART SURGERY HX 1987 at [facility], atrial septal defect repair - LASIK Right 2001 - PAST SURGICAL HISTORY OF 2018 laser surg, greater and lesser saphenous veins - REMOVAL SPLEEN, PARTIAL 1969 traumatic - SCRN COLONOSCOP 2013 10 yr f/u - SKIN BIOPSY HX benign - TOE SURGERY HX 2013 tendon repairs due to step into groundhog hole, second surgery due to atrophic changes - TONSILLECTOMY HX 1975 Social History Tobacco Use - Smoking status: Former Smoker Packs/day: 0.25 Years: 4.00 Pack years: 1.00 Types: Cigarettes Start date: 10/16/1975 Quit date: 10/16/1979 Years since quittin.1 - Smokeless tobacco: Never Used - Tobacco comment: 4-5 cigarettes/day Substance Use Topics - Alcohol use: Yes Alcohol/week: 23.3 standard drinks Types: 14 Shots of liquor per week Comment: scotch, nightly - Drug use: Never Current Outpatient Medications Medication Sig - aspirin, enteric coated (ECOTRIN LOW STRENGTH) 81 mg EC tablet Take 1 tablet by mouth once daily. - levothyroxine (SYNTHROID) 75 mcg tablet Take 75 mcg by mouth once daily. - triamcinolone acetonide (KENALOG) 0.1 % cream Apply to affected area twice daily. APPLY TO AFFECTED AREA - KELP ORAL Take by mouth once daily. - MILK THISTLE ORAL Take 1,000 mg by mouth once daily. - naproxen sodium (ALEVE) 220 mg cap Take by mouth twice daily. - lisinopril-hydrochlorothiazide 10-12.5 mg per tablet Take 1 tablet by mouth once daily. - metoprolol succinate XL, long acting, (TOPROL XL) 100 mg Tb24 Take by mouth. No current facility-administered medications for this visit. ALLERGIES No Known Allergies Resp 16 Ht 5' 9 (1.75m) Wt 230 lb (104.3kg) BMI 33.95 kg/(m2). Exam: Gen: Pt is a well-appearing female in NAD Gait: Normal Right foot: Mild valgus alignment, tenderness to palpation over plantar aspect of heel. There is significant tenderness over the area of the sinus tarsi and lateral ankle. Normal range of motion. Neuro: Negative for myoclonus, sensation is intact over the right foot. Vascular: Varicosities present over the right lower extremity, palpable dorsalis pedis pulse Medical Decision Making Data I have reviewed the following data in process of medical decision making: External note from other physician, External report of imaging, Independent review of xray images and Independent review of MRI images ASSESSMENT: (M72.2) Plantar fasciitis of right foot (primary encounter diagnosis) PLAN: Medical Decision Risks I have discussed the risks and benefits of the following treatments with patient today: Surgeries, including risks/benefits/recoveries ? Discussed risks/benefits/alternatives including but not limited to tendo/fascia rupture, infection at operative site, joint infection, lack of success. Patient accepts risk and wishes to proceed. Consent form signed ? Patient signed consent today for procedure ? Will call to set up PCUST Return for By phone with marketing services manager for scheduling for percutaneous fasciotomy. Part of this note has been created using voice recognition software. It may contain errors which are inherent in voice-recognition technology. Dean Maya MD [facility] 11-26-2020 Note HNO ID: [id number] Author: Jazmine Ladd Service: ? Author Type: Physician Type: Progress Notes Filed: 11/26/2020 3:14 PM Note Text: CC: Right heel pain and ankle pain HPI: This 60 year old female presents for follow up of right heel pain and ankle pain as well as for review of MRI. She states there has been no improvement in symptoms though she continues to stretch daily and use the nightsplint a few times a week when watching television in the evening. She states she would be interested in a corticosteroid injection however she has an allergic reaction to a prior injection and has not been able to identify whether the anesthetic of corticosteroid caused the reaction. Awaiting medical record release as she had another injection which did not cause a reaction. She states her heel pain is about the same as it has been however her right ankle pain continues to worsen. No other pedal complaints. Relevant HPI: Past treatment as included: multiple conservative treatments including [id number]-lwruavr and custom foot orthotics, supportive shoe gear, stretching exercises, boot immobilization, night splint, physical therapy as well as electromagnetic pulse treatments with little improvements of her symptoms. PMH PAST MEDICAL HISTORY Diagnosis Date - ASD (atrial septal defect) repaired at [facility] at age 27 - Heel spur - HTN (hypertension) - Hypothyroid levothyroxine 75 mcg - Menopausal state - (normal spontaneous vaginal delivery) 1987, 1989, 1993 1987: 8'12 ; 1989 9'3 ; 1993: 9'1 - Pap smear for cervical cancer screening 2016 - Plantar fasciitis - Psoriasis - TIA (transient ischemic attack) 1987 during first , diagnosed ASD, repaired at [facility] after delivery MEDS Current Outpatient Medications Medication Sig Dispense Refill - aspirin, enteric coated (ECOTRIN LOW STRENGTH) 81 mg EC tablet Take 1 tablet by mouth once daily. - levothyroxine (SYNTHROID) 75 mcg tablet Take 75 mcg by mouth once daily. 4 - triamcinolone acetonide (KENALOG) 0.1 % cream Apply to affected area twice daily. APPLY TO AFFECTED AREA 1 - KELP ORAL Take by mouth once daily. - MILK THISTLE ORAL Take 1,000 mg by mouth once daily. - naproxen sodium (ALEVE) 220 mg cap Take by mouth twice daily. - lisinopril-hydrochlorothiazide 10-12.5 mg per tablet Take 1 tablet by mouth once daily. - metoprolol succinate XL, long acting, (TOPROL XL) 100 mg Tb24 Take by mouth. No current facility-administered medications for this visit. Allergies ALLERGIES No Known Allergies REVIEW OF SYSTEMS See tech note MSK: + as noted in HPI. Physical examination: On General Observation: Patient is a pleasant, cooperative, overweight, 60 year old adult female. The patient is alert and oriented to time, place and person. Patient has normal affect and mood. Resp 16 Ht 175.3 cm (5' 9 ) Wt 104.8 kg (231 lb) BMI 34.11 kg/m? FOCUSED RIGHT LOWER EXTREMITY EXAMINATION: Vascular: DP and PT pulses are palpable. CFT less than 3 seconds to all digits. Skin temperature is warm to warm from proximal to distal. Hair growth is not noted. Mild edema to noted to right heel and lateral ankle. Diffuse varicosities noted, most severe to medial ankle. Neuro: Light touch intact. No clonus noted. Babinski reflex not elicited. Derm: Skin texture and turgor within normal limits. Webspaces 1-4 clean, dry, intact bilateral. No rashes, subcutaneous nodules, or open lesions noted. No hyperkeratotic tissue. No erythema Muscle strength is 5/5 for all instrinsic and extrinsic muscle groups. General foot morphology: Decreased medial longitudinal arch on and off weightbearing. ROM of the STJ is decreased with pain and crepitus. Pain with palpation to the plantar medial aspect of the right heel at the insertion site of the central band of the plantar fascia. No effusion to the plantar right heel. Negative Tinel's sign with percussion of the posterior tibial nerve at the proximal and distal tarsal tunnel regions. No pain with palpation/compression to posterior calcaneal tuber. No signs of calcaneal stress fracture. No signs of Garcia's nerve entrapment. Negative straight leg raise test. No evidence of nodularity or fibromatosis. Peroneal tendons are intact without evidence of subluxation. No pain on palpation of peroneal tendons. Negative anterior drawer test. Negative talar tilt. Tenderness noted to ATFL and maximal pain to the sinus tarsi. Negative pain on palpation of CFL and PTFL. Unable to recreate peroneal subluxation. Radiographs: MRI RIGHT ANKLE WO (11/19/2020) IMPRESSION: 1. Peroneus longus and brevis tendons appear normal. No evidence of a peroneal retinacular tear. 2. Subtalar osteoarthritis with subchondral cyst formation and reactive marrow edema at the middle facet, not significantly changed. Obscuration of the normal fat signal in the sinus tarsi as may be seen in setting of the sinus tarsi (more content not included)... [facility] 11-26-2020 Note HNO ID: [id number] Author: Jaylon Martin (Tech) Service: ? Author Type: Cleaning Maid Type: Progress Notes Filed: 11/26/2020 3:14 PM Note Text: REVIEW OF SYSTEMS: GENERAL: Well developed, well nourished. No acute distress PAIN: right ankle pain CARDIOVASCULAR: Negative for chest pain, leg swelling and palpations. MSK: Negative for joint swelling SKIN: Negative for lesions, rash, itching, metal sensitivity NEURO: Negative for seizure, trauma, numbness/tingling of extremities. ENDOCRINE: Negative for diabetic associated symptoms HEMATOLOGY: Negative for excessive bleeding, clots, bleeding disorders. [facility] 11-05-2020 Note HNO ID: [id number] Author: Jazmine Ladd Service: ? Author Type: Physician Type: Progress Notes Filed: 11/05/2020 10:36 AM Note Text: CC: Right heel pain and ankle pain HPI: This 60 year old female presents complaining of pain in the right heel and outside of right ankle. Patient states that pain started to the right heel in November 2018. Denies trauma. Onset was gradual with worsening course. Patient states she was initially followed by Dr. Castillo DPM. States to have tried multiple conservative treatments including lnpd-[id number]-ciriado and custom foot orthotics, supportive shoe gear, stretching exercises, boot immobilization, night splint, physical therapy as well as electromagnetic pulse treatments with little improvements of her symptoms. States that have several rounds of electromagnetic pulse treatment, her pain was exacerbated and now notes pain to the lateral aspect of her right ankle. Pain is worse first thing in the morning as well as throughout the day. States that used to walk for exercise and now can not do so due to her pain. Patient had seen her primary care physician who had told the patient her symptoms to her ankle were related to osteoarthritis. She had been recommended Aleve BID and had planned to follow-up with her primary care doctor for a second opinion, but was unable to due to the COVID-19 pandemic. Patient states that currently, she has been using the [id number]-gutehhu inserts and stretching exercises. Notes that the custom foot orthotics had exacerbated her ankle symptoms. Patient states that now get a popping sensation to the outside of her ankle that results in sharp pain that would radiates over the dorsal aspect of her foot. She would occasionally note during these episodes that something had come out of place and would relocate when she had rested and massaged the area. States that can not walk on the area when this occurs. States that did have an MRI in 04/2019 but states this was prior to the ankle symptoms starting. States that does have a remote history of severe ankle sprain to the right ankle when she was a child and states that was on crutches for 6 months due to this. Pain is currently rated a 4/10. Denies any numbness, burning, or tingling. Denies any other pedal complaints. Denies any prior corticosteroid treatments for plantar fasciitis. States that did have an issue with a steroid injection in the past that she thinks was related to the numbing medication that was used. Has had another one since without issue but not sure what medication was used for this. PMH PAST MEDICAL HISTORY Diagnosis Date - ASD (atrial septal defect) repaired at [facility] at age 27 - Heel spur - HTN (hypertension) - Hypothyroid levothyroxine 75 mcg - Menopausal state - (normal spontaneous vaginal delivery) 1987, 1989, 1993 1987: 8'12 ; 1989 9'3 ; 1993: 9'1 - Pap smear for cervical cancer screening 2016 - Plantar fasciitis - Psoriasis - TIA (transient ischemic attack) 1987 during first , diagnosed ASD, repaired at [facility] after delivery MEDS Current Outpatient Medications Medication Sig Dispense Refill - aspirin, enteric coated (ECOTRIN LOW STRENGTH) 81 mg EC tablet Take 1 tablet by mouth once daily. - levothyroxine (SYNTHROID) 75 mcg tablet Take 75 mcg by mouth once daily. 4 - triamcinolone acetonide (KENALOG) 0.1 % cream Apply to affected area twice daily. APPLY TO AFFECTED AREA 1 - KELP ORAL Take by mouth once daily. - MILK THISTLE ORAL Take 1,000 mg by mouth once daily. - naproxen sodium (ALEVE) 220 mg cap Take by mouth twice daily. - lisinopril-hydrochlorothiazide 10-12.5 mg per tablet Take 1 tablet by mouth once daily. - metoprolol succinate XL, long acting, (TOPROL XL) 100 mg Tb24 Take by mouth. No current facility-administered medications for this visit. Allergies ALLERGIES No Known Allergies Social History Tobacco Use - Smoking status: Former Smoker Packs/day: 0.25 Years: 4.00 Pack years: 1.00 Types: Cigarettes Start date: 10/16/1975 Quit date: 10/16/1979 Years since quittin.0 - Smokeless tobacco: Never Used - Tobacco comment: 4-5 cigarettes/day Substance Use Topics - Alcohol use: Yes Alcohol/week: 23.3 standard drinks Types: 14 Shots of liquor per week Comment: scotch, nightly - Drug use: Never FAMILY HISTORY Problem Relation Age of Onset - Heart Mother age 89, pacemaker - Psoriasis Mother - Arthritis Mother psoriatic - Alcohol/Drug Brother - Dementia Brother alcohol-related, in SNF - other (Head injury) Brother 29 age 59 - Melanoma Sister 42 age 63 - Cancer Father at 79, bone - Aneurysm Father brain - Diabetes Paternal Grandmother at ~72, type I - Diabetes Son age 31, type I - None Son age 29 - Hearing Loss Son age 25 PAST SURGICAL HISTORY Procedure Laterality Date - EXTENSIVE FOOT SURGERY - HEART SURGERY HX 1987 at (more content not included)... [facility] 11-05-2020 Note HNO ID: [id number] Author: Jaylon Martin (Tech) Service: ? Author Type: Cleaning Maid Type: Progress Notes Filed: 11/05/2020 10:36 AM Note Text: REVIEW OF SYSTEMS: GENERAL: Well developed, well nourished. No acute distress PAIN: right heel pain CARDIOVASCULAR: Negative for chest pain, leg swelling and palpations. MSK: Negative for joint swelling SKIN: Negative for lesions, rash, itching, metal sensitivity NEURO: Negative for seizure, trauma, numbness/tingling of extremities. ENDOCRINE: Negative for diabetic associated symptoms HEMATOLOGY: Negative for excessive bleeding, clots, bleeding disorders. [facility] Abnormal hearing test- Primary Unspecified hearing loss [facility] Diagnosis Routine general medical examination at a health care facility [facility] Diagnosis Ascending aorta dilation (HCC) Thoracic aortic ectasia [facility] Diagnosis Primary osteoarthritis of right knee Primary localized osteoarthrosis, lower leg [facility] Diagnosis Routine general medical examination at a health care facility- Primary Hypercholesterolemia Pure hypercholesterolemia Elevated lipoprotein(a) Other disorders of lipoid metabolism Hypertension Unspecified essential hypertension Normal coronary arteries, Coronary Calcium Score = 0 (10/2019) Screening for other and unspecified cardiovascular conditions Ascending aorta dilation (4.3 cm on non-contrast CT 10/2019, and on CT angiogram 07/2023) Thoracic aortic ectasia Prediabetes Other abnormal glucose Obesity, Class I, BMI 30-34.9 Obesity, unspecified Hypothyroidism Vitamin D deficiency Unspecified vitamin D deficiency Elevated uric acid in blood Other abnormal blood chemistry Primary osteoarthritis of right knee Primary localized osteoarthrosis, lower leg Bursitis of both hips, unspecified bursa Ventral hernia without obstruction or gangrene Ventral hernia, unspecified, without mention of obstruction or gangrene Colon cancer screening Special screening for malignant neoplasms, colon Need for vaccination Need for prophylactic vaccination and inoculation against unspecified single disease Screening for HIV without presence of risk factors Special screening examination for other specified viral diseases [facility] Ventral hernia without obstruction or gangrene- Primary Ventral hernia, unspecified, without mention of obstruction or gangrene [facility] Diagnosis Ventral hernia without obstruction or gangrene Ventral hernia, unspecified, without mention of obstruction or gangrene [facility] Diagnosis Ventral hernia without obstruction or gangrene Ventral hernia, unspecified, without mention of obstruction or gangrene [facility] Diagnostic Procedure Only (Routine) - Closed Specialty Diagnoses / Procedures Referred By Santana t Referred To Contact XR IMAGING Diagnoses Primary osteoarthritis of right knee Procedures XR KNEE GENERAL 4V AP BOTH/PA BOTH/LAT/MERC RIGHT RADIOLOGIC EXAM KNEE COMPLETE 4/MORE VIEWS Allan Partida MD [address] [place] [address] Xr Imaging [place] [address] Referral ID Status Reason Start Date Expiration Date V isits Requested Visits Authorized [id number] Closed Auto-Generate d Referral 08/01/2023 08/30/2024 1 1 [facility] Chief Complaint Chief Complaint Description Start Date right foot pain Preliminary chief co mplaint data, not yet signed by the author as of Instructions Instruction Description Start Date CompletedPlease follow-up wi th Primary Care Physician or Pot Fireman for treatment or adjustment of medication regarding elevated blood pressure.Patient advised to follow-up with Primary Care Physician for BMI management. Advance Directives There may be information available, but it has not been provided by the sender. No Advanced Directives Records FoundNo Advanced Directives Records FoundNo Advanced Directives Records FoundNo Advanced Directives Records Found Assessments There may be information available, but it has not been provided by the sender. Review of System There may be information available, but it has not been provided by the sender. Family History There may be information available, but it has not been provided by the sender.No Family History Records FoundNo Family History Records FoundNo Family History Records FoundNo Family History Records Found History of Present Illness There may be information available, but it has not been provided by the sender. Summary Purpose Reason for Referral Specialty Diagnoses / Procedures Referred By Santana smith Referred To Contact CT IMAGING Diagnoses Disorder of arteries and arterioles (HCC) Ascending aorta dilation (HCC) Procedures CTA CHEST (GATED) W IVCON CT ANGIOGRAPHY CHEST W/CONTRAST/NONCONTRAST Allan Partida MD [id number] Imaging [place] [address] Referral ID Status Reason Start Date Expiration Date Visits Requested Visits Authorized [id number] Pending Review Auto-Generat ed Referral 3 08/24/2024 1 1 Specialty Diagnoses / Procedures Referred By Contac t Referred To Contact General Surgery Diagnoses Ventral hernia without obstruction or gangrene Procedures CONSULT TO GENERAL SURGERY OFFICE/OUTPATIENT [facility] 60-74 MINUTES Allan Partida MD [address] [place] [address] Referral ID Status Reason Start Date Expiration Date Visits Requested Visits Authorized [id number] Authorized PCP Requested Referral 3 07/31/2024 1 1 Specialty Diagnoses / Procedures Referred By Contac t Referred To Contact Orthopedics Diagnoses Primary osteoarthritis of right knee Bursitis of both hips, unspecified bursa Procedures CONSULT PANEL TO ORTHOPAEDICS OFFICE/OUTPATIENT [facility] 60-74 MINUTES Allan Partida MD [address] [place] [address] Referral ID Status Reason Start Date Expiration Date Visits Requested Visits Authorized [id number] Authorized PCP Requested Referral 3 07/31/2024 1 1 Specialty Diagnoses / Procedures Referred By Contac t Referred To Contact XR IMAGING Diagnoses Primary osteoarthritis of right knee Procedures XR KNEE GENERAL 4V AP BOTH/PA BOTH/LAT/MERC RIGHT RADIOLOGIC EXAM KNEE COMPLETE 4/MORE VIEWS Allan Partida MD [address] [place] [address] Xr Imaging [place] [address] Referral ID Status Reason Start Date Expiration Date V isits Requested Visits Authorized [id number] Closed Auto-Generate d Referral 08/01/2023 08/30/2024 1 1 Specialty Diagnoses / Procedures Referred By Contac t Referred To Contact CT IMAGING Diagnoses Ventral hernia without obstruction or gangrene Procedures CT ABD/PEL WO IVCON CT ABD & PELVIS W/O CONTRAST Chelsey Baig, COLOR STRAINER.DISTRIBUTION ANALYST [address] [address] [address] [place] [address] Referral ID Status Reason Start Date Expiration Date Visits Requested Visits Authorized [id number] Pending Review Auto-Generat ed Referral 3 09/27/2024 1 1 Referral ID Status Reason Start Date Expiration Date Visits Requested Visits Authorized [id number] Pending Review Auto-Genera lilliam Referral Patient Cleared - Admin/Chair man/Directo r advise to proceed or did not respond 3 09/27/2024 2 2 Additional Source Comments Reason for Visit (unrecogniz ed section and content) Reason Comments Nurse Triage Call [facility] Reason Comments Nutrition Assessment Patient Education Reason Comments Physical Reason Comments Radiology Mammogram Reason Comments Radiology CT Specialty Diagnoses / Procedures Referred By Contac t Referred To Contact CT IMAGING Diagnoses Disorder of arteries and arterioles (HCC) Ascending aorta dilation (HCC) Procedures CTA CHEST (GATED) W IVCON CT ANGIOGRAPHY CHEST W/CONTRAST/NONCONTRAST Allan Partida MD [address] [place] [address] [address] Imaging [place] [address] Referral ID Status Reason Start Date Expiration Date Visits Requested Visits Authorized [id number] Waiting for Online Response Auto-Genera lilliam Referral Patient Cleared - Admin/Chair man/Directo r advise to proceed or did not respond 3 08/24/2024 1 1 Reason Comments Radio Gen A21 Specialty Diagnoses / Procedures Referred By Contac t Referred To Contact XR IMAGING Diagnoses Primary osteoarthritis of right knee Procedures XR KNEE GENERAL 4V AP BOTH/PA BOTH/LAT/MERC RIGHT RADIOLOGIC EXAM KNEE COMPLETE 4/MORE VIEWS Allan Partida MD [address] [place] [address] Xr Imaging [place] [address] Referral ID Status Reason Start Date Expiration Date V isits Requested Visits Authorized [id number] Closed Auto-Generate d Referral 08/01/2023 08/30/2024 1 1 Reason Comments [facility] Physical Reason Comments Appointment Imaging Needed Prior to Appointment Reason Comments Radiology CT Specialty Diagnoses / Procedures Referred By Contac t Referred To Contact CT IMAGING Diagnoses Ventral hernia without obstruction or gangrene Procedures CT ABD/PEL WO IVCON CT ABD & PELVIS W/O CONTRAST Chelsey Baig APRN.DISTRIBUTION ANALYST [address] [place] [address] [place] [address] Referral ID Status Reason Start Date Expiration Date Visits Requested Visits Authorized [id number] Pending Review Auto-Genera lilliam Referral Patient Cleared - Admin/Chair man/Directo r advise to proceed or did not respond 3 09/27/2024 2 2 Reason Comments Consult Specialty Diagnoses / Procedures Referred By Contac t Referred To Contact General Surgery Diagnoses Ventral hernia without obstruction or gangrene Procedures CONSULT TO GENERAL SURGERY OFFICE/OUTPATIENT NEW HIGH MDM 60-74 MINUTES Allan Partida MD [address] [place] [address] Referral ID Status Reason Start Date Expiration Date V isits Requested Visits Authorized [id number] Closed PCP Requested Referral 08/01/2023 07/31/2024 1 1 INFORMATION SOURCE (unrecogn ized section and content) DATE CREATED AUTHOR AUTHOR'S ORGANIZ ATION 02/04/2021 [facility] DATE CREATED AUTHOR AUTHOR'S ORGANIZ ATION 02/04/2021 [facility] DATE CREATED AUTHOR AUTHOR'S ORGANIZ ATION 09/19/2023 [facility] Source Comments (unrecognize d section and content) In the event this informatio n is protected by the Federal Confidentiality of Alcohol and Drug Abuse Patient Records regulations: The Federal rules restrict any use of the information to criminally investigate or prosecute any alcohol or drug abuse patient.[facility] event this information is protected by the Federal Confidentiality of Alcohol and Drug Abuse Patient Records regulations: The Federal rules restrict any use of the information to criminally investigate or prosecute any alcohol or drug abuse patient.[facility] the event this information is protected by the Federal Confidentiality of Alcohol and Drug Abuse Patient Records regulations: The Federal rules restrict any use of the information to criminally investigate or prosecute any alcohol or drug abuse patient.[facility] the event this information is protected by the Federal Confidentiality of Alcohol and Drug Abuse Patient Records regulations: The Federal rules restrict any use of the information to criminally investigate or prosecute any alcohol or drug abuse patient.[facility] the event this information is protected by the Federal Confidentiality of Alcohol and Drug Abuse Patient Records regulations: The Federal rules restrict any use of the information to criminally investigate or prosecute any alcohol or drug abuse patient.[facility] the event this information is protected by the Federal Confidentiality of Alcohol and Drug Abuse Patient Records regulations: The Federal rules restrict any use of the information to criminally investigate or prosecute any alcohol or drug abuse patient.[facility] the event this information is protected by the Federal Confidentiality of Alcohol and Drug Abuse Patient Records regulations: The Federal rules restrict any use of the information to criminally investigate or prosecute any alcohol or drug abuse patient.[facility] the event this information is protected by the Federal Confidentiality of Alcohol and Drug Abuse Patient Records regulations: The Federal rules restrict any use of the information to criminally investigate or prosecute any alcohol or drug abuse patient.[facility] the event this information is protected by the Federal Confidentiality of Alcohol and Drug Abuse Patient Records regulations: The Federal rules restrict any use of the information to criminally investigate or prosecute any alcohol or drug abuse patient.[facility] the event this information is protected by the Federal Confidentiality of Alcohol and Drug Abuse Patient Records regulations: The Federal rules restrict any use of the information to criminally investigate or prosecute any alcohol or drug abuse patient.[facility] the event this information is protected by the Federal Confidentiality of Alcohol and Drug Abuse Patient Records regulations: The Federal rules restrict any use of the information to criminally investigate or prosecute any alcohol or drug abuse patient.[facility] Care Teams (unrecognized sec tion and content) Supervisor Grading Relationship Specialty Start Date End Date Nubia Sage DO [address] [facility] [address] [place] [address] PCP - General Family Medicine 08/01/23 Holger Alvarado DO Referring Family Medicine 08/02/19 Supervisor Grading Relationship Specialty Start Date End Date Nubia Sage DO [address] [facility] [address] [place] [address] PCP - General Family Medicine 08/01/23 Holger Alvarado DO Referring Family Medicine 08/02/19 Supervisor Grading Relationship Specialty Start Date End Date Nubia Sage DO [address] [facility] [address] [place] [address] PCP - General Family Medicine 08/01/23 Holger Alvarado DO Referring Family Medicine 08/02/19 Supervisor Grading Relationship Specialty Start Date End Date Nubia Sage DO [address] [facility] [address] [place] [address] PCP - General Family Medicine 08/01/23 Holger Alvarado DO Referring Family Medicine 08/02/19 Supervisor Grading Relationship Specialty Start Date End Date Nubia Sage DO [address] [facility] [address] [place] [address] PCP - General Family Medicine 08/01/23 Holger Alvarado DO Referring Family Medicine 08/02/19 Supervisor Grading Relationship Specialty Start Date End Date Nubia Sage DO [address] [facility] [facility] [address] [place] [address] PCP - General Family Medicine 08/01/23 Holger Alvarado DO Referring Family Medicine 08/02/19 Supervisor Grading Relationship Specialty Start Date End Date Nubia Sage DO [address] [facility] [address] [place] [address] PCP - General Family Medicine 08/01/23 Holger Alvarado DO Referring Family Medicine 08/02/19 Supervisor Grading Relationship Specialty Start Date End Date Nubia Sage JoyDO [address] [facility] [address] [place] [address] PCP - General Family Medicine 08/01/23 Holger Alvarado DO Referring Family Medicine 08/02/19 Supervisor Grading Relationship Specialty Start Date End Date Nubia Sage DO [address] [facility] [address] [place] [address] PCP - General Family Medicine 08/01/23 Holger Alvarado DO Referring Family Medicine 08/02/19 Supervisor Grading Relationship Specialty Start Date End Date Nubia Sage DO [address] [facility] [address] [place] [address] PCP - General Family Medicine 08/01/23 Holger Alvarado DO Referring Family Medicine 08/02/19 FOR RECORDS PERTAINING TO PATIENTS WHO ARE OR HAVE BEEN ENROLLED IN A CHEMICAL DEPENDENCY/SUBSTANCEABUSE PROGRAM, SOME INFORMATION MAY BE OMITTED. This clinical summary was aggregated from multiple sources. Caution should be exercised in using it in the provision of clinical care. This summary normalizes information from multiple sources, and as a consequence, information in this document may materially change the coding, format and clinical context of patient data. In addition, data may be omitted in some cases. CLINICAL DECISIONS SHOULD BE BASED ON THE PRIMARY CLINICAL RECORDS. [facility] [employer] [facility]. provides no warranty or guarantee of the accuracy or completeness of information in this document.
[2023-10-17 12:54] LABS: T4 Free Direct 1.19 ng/dL (0.76-1.46); Thyroid Stim Hormone (TSH) 3.81 uIU/mL (0.358-3.74)
== END | disposition home or self-care (01) ==
LOC: MFPLAB 10:49
PROVIDERS: PCP Family Medicine; Visit Provider Family Medicine
DX: E03.9 Hypothyroidism, unspecified (principal)
CPT/HCPCS: 36415; 84439; 84443

== ENCOUNTER → 2024-01-05 | Outpatient (CLI) | payer OTHER, SELFPAY ==
[2024-01-05 12:30] LABS: T4 Free Direct 1.59 ng/dL (0.76-1.46)
== END | disposition home or self-care (01) ==
LOC: MFPLAB 10:27
PROVIDERS: PCP Family Medicine; Referring Provider Family Medicine; Visit Provider Family Medicine
DX: E03.9 Hypothyroidism, unspecified (principal)
CPT/HCPCS: 36415; 84439; 84443

== ENCOUNTER → 2024-09-16 | Outpatient (CLI) | payer OTHER, SELFPAY ==
[2024-09-16 13:47] LABS: Anion Gap 5 (5-15); BUN 13 mg/dL (7-18); BUN/Creat Ratio 16.9 RATIO (10-20); Calcium,Total 9.6 mg/dL (8.5-10.1); Chloride 99 mmol/L (98-107); Creatinine, Serum 0.77 mg/dL (0.55-1.02); EST Glomerular Filtration Rate 80 mL/min (>60); Est Glom Filt Rate - Afr Amer 96 mL/min (>60); Glucose 86 mg/dL (74-106); Potassium 3.9 mmol/L (3.5-5.1); Sodium Level 133 mmol/L (136-145); Vitamin D,25 Hydroxy 79.9 ng/mL
== END | disposition home or self-care (01) ==
PROVIDERS: PCP Internal Medicine; Referring Provider Internal Medicine; Visit Provider Internal Medicine
DX: I10 Essential (primary) hypertension (principal); Z13.21 Encounter for screening for nutritional disorder; E03.9 Hypothyroidism, unspecified
CPT/HCPCS: 36415; 80048; 82306; 84443

== ENCOUNTER → 2024-10-21 | Outpatient (CLI) | payer OTHER, SELFPAY ==
[2024-10-21 15:59] LABS: Erythrocyte Sedimentation Rate 5 mm/hr (0-30)
[2024-10-21 16:32] LABS: CRP 3.19 mg/L (0.0-3.0)
== END | disposition home or self-care (01) ==
LOC: BIMLAB 11:35
PROVIDERS: PCP Internal Medicine; Referring Provider Internal Medicine; Visit Provider Internal Medicine
DX: R51.9 Headache, unspecified (principal)
CPT/HCPCS: 36415; 85652; 86140

== ENCOUNTER → 2025-03-19 | Outpatient (CLI) | payer MEDICARE, SELFPAY ==
[2025-03-19 16:15] LABS: Anion Gap 15 (5-15); BUN 13 mg/dL (4-19); BUN/Creat Ratio 15.3 RATIO (10-20); Calcium,Total 9.8 mg/dL (7.6-11.0); Carbon Dioxide 23.3 mmol/L (21.0-32.0); Chloride 94 mmol/L (98-108); Creatinine, Serum 0.86 mg/dL (0.70-1.20); EST Glomerular Filtration Rate 74 (>60); Glucose 92 mg/dL (70-99); Sodium Level 132 mmol/L (133-145); Thyroid Stim Hormone (TSH) 0.996 uIU/mL (0.300-4.200)
--- OUTSIDE RECORDS SUMMARY | 2025-03-19 20:41 | XMS RPT_ITS | CCD ---
Author Organization [facility] Care Team Providers Care Bureau Director Name Role Phone Michael WILLIAMSON, Spencer Pastor Unavailable [phone] JOSE MIGUEL HATHAWAY Attending Unavailable JOSE MIGUEL HATHAWAY Primary Care Unavailable JOSE MIGUEL HATHAWAY Admitting Unavailable JOSE MIGUEL HATHAWAY Attending Unavailable JOSE MIGUEL HATHAWAY Primary Care Unavailable JOSE MIGUEL HATHAWAY Admitting Unavailable Leon Alvarado DO Unavailable Leon Alvarado DO Primary Care Provider Nubia Sage DO Primary Care Provider [phone] Nubia Sage DO Primary Care Provider AVI DOBBINS Admitting Unavailable AVI DOBBINS Attending Unavailable NUBIA SAGE Primary Care Unavailable Nubia Sage DO Primary Care Provider [phone] Nubia Sage DO Primary Care Provider Nubia Sage DO Primary Care Provider Oleghe, Efewongbe Primary Care Unavailable Oleghe, Efewongbe Attending Unavailable Krystynae, Efewongbe Referring Unavailable Nubia Sage Referring Unavailable Krystynae, Efewongbe Attending Unavailable Nubia Sage Primary Care Unavailable Nubia Sage Attending Unavailable Nubia Sage Referring Unavailable Oleghe, Efewongbe Attending Unavailable Oleghe, Efewongbe Referring Unavailable Oleghe, Efewongbe Primary Care Unavailable Oleghe, Efewongbe Primary Care Unavailable Oleghe, Efewongbe Attending Unavailable Oleghe, Efewongbe Referring Unavailable Oleghe, Efewongbe Attending Unavailable Oleghe, Efewongbe Referring Unavailable Oleghe, Efewongbe Primary Care Unavailable COURTNEY COCHRAN Attending Unavailable AVI DOBBINS Referring Unavailable SEEMA, NUBIA [facility] Primary Care Unavailabl e AVI DOBBINS Referring Unavailable AVI DOBBINS Attending Unavailable SEEMA, NUBIA CHRISTOPHER Primary Care Unavailabl e AVI DOBBINS Referring Unavailable SEEMA, NUBIA [facility] Primary Care Unavailabl e AVI DOBBINS Attending Unavailable DAVID HULL Referring Unavailable SEEMA, NUBIA [facility] Primary Care Unavailabl e [facility] Unavail[facility] e DAVID HULL Referring Unavailable SEEMA, NUBIA [facility] Primary Care Unavailabl e DAVID HULL Referring Unavailable SEEMA, NUBIA [facility] Primary Care Unavailabl e DELLA DAVID J Referring Unavailable SEEMA, NUBIA [facility] Primary Care Unavailabl e AVI DOBBINS Referring Unavailable SEEMA, NUBIA [facility] Primary Care Unavailabl e AVI DOBBINS Attending Unavailable DAVID HULL Attending Unavailable SEEMA, NUBIA [facility] Primary Care Unavailabl e DAVID HULL Referring Unavailable SEEMA, NUBIA [facility] Primary Care Unavailabl e [facility], [facility] Primary Care Unavailabl e DELLA DAVID J Referring Unavailable SEEMA, NUBIA [facility] Primary Care Unavailabl e SEEMA, NUBIA [facility] Primary Care Unavailabl e DELLA, DAVID J Referring Unavailable SEEMA, NUBIA [facility] Primary Care Unavailabl e DELLA DAVID J Referring Unavailable SEEMA, NUBIA [facility] Primary Care Unavailabl e DELLA, DAVID J Referring Unavailable AVI DOBBINS Attending Unavailable SEEMA, NUBIA [facility] Primary Care Unavailabl e [facility], [facility] Primary Care Unavailabl e AVI DOBBINS Referring Unavailable SEEMA, NUBIA [facility] Primary Care Unavailabl e MAHSA MATIAS Referring Unavailable SEEMA, NUBIA [facility] Primary Care Unavailabl e DELLA DAVID J Referring Unavailable Medications Current Medications Medication Drug Class(es) Dates Sig (Normalized) Sig (Original) aspirin 81 mg delayed release oral tablet (20 sources) Platelet Aggregation Inhibitor, Nonsteroidal Anti-inflammatory Drug Start: 03-10-2020 take 1 tablet by mouth once daily aspirin, enteric coated (ECOTRIN LOW STRENGTH) 81 mg EC tablet Take 1 tablet by mouth once daily. 03/10/2020 Active Start: 05-02-2019 ASPIRIN 81 MG TBEC 1 tablet daily ASPIRIN [id number] Delia Kwame WHITE Comment on above: Take 1 tablet by karl once daily. celecoxib 200 mg oral capsule (12 sources) Nonsteroidal Anti-inflammatory Drug Start: 12-17-2024 take 1 capsule by mouth once daily celecoxib (CELEBREX) 200 mg capsule Take 1 capsule by mouth once daily. 12/17/2024 Active Start: 06-03-2024 End: 12-17-2024 take 1 capsule by mouth twice daily celecoxib (CELEBREX) 200 mg capsule TAKE 1 CAPSULE BY MOUTH TWICE A DAY 60 capsule 5 11/15/2024 12/17/2024 Discontinued cholecalciferol, vitamin D3, (VITAMIN D3 ORAL) (20 sources) take 2000 [IU] by mouth once daily cholecalciferol, vitamin D3, (VITAMIN D3 ORAL) Take 2,000 Units by mouth once daily. Active take 2000 [IU] by mouth once etelvina ly cholecalciferol, vitamin D3, (VITAMIN D3 ORAL) Take 2,000 Units by mouth once daily. 0 Active Comment on above: Take 2,000 Units by mouth once daily. cyanocobalamin, vitamin B-12, (VITAMIN B-12 ORAL) (20 sources) take 500 ug by mouth once daily cyanocobalamin, vitamin B-12, (VITAMIN B-12 ORAL) Take 500 mcg by mouth once daily. Active take 500 ug by mouth once daily cyanocobalamin, vitamin B-12, (VITAMIN B-12 ORAL) Take 500 mcg by mouth once daily. 0 Active take 1000 ug by mouth once daily cyanocobalamin, vitamin B-12, (VITAMIN B-12 ORAL) Take 1,000 mcg by mouth once daily. 0 Active Comment on above: Take 1,000 mcg by mo ut once daily. Take 500 mcg by mout h once daily. diclofenac sodium 0.01 mg/mg topical gel (20 sources) Nonsteroidal Anti-inflammatory Drug Start: 2021 apply 2 g topically four times daily diclofenac (VOLTAREN) 1 % topical gel Indications: Bilateral thumb pain Apply 2 g to affected area four times daily. 100 g 1 12/08/2021 Active Comment on above: Apply 2 g to affecte d area four times daily. iv contrast (will be provided with radiology test) (1 source) Start: 2022 End: 2022 inject 1 dose intravenously once iv contrast [...] link. 1 Each 0 07/26/2023 07/27/2023 Active Comment on above: CTA Chest. No IV acc ess, insert saline lock prior to the sedation, infusion, injection for imaging exam. Discontinue saline lock post exam. If Pt. has a central line or IVAD, may access for administration according to line specific nursing protocol. Once exam is complete flush line and de-access according to line specific nursing protocol in the CT contrast administration guidelines link. levothyroxine sodium 0.112 mg oral tablet (20 sources) l-Thyroxine Start: 2022 take 1 tablet by mouth five times weekly levothyroxine (SYNTHROID) 112 mcg tablet Take 1 tablet by mouth five times a week. Monday-Monday07/09/2023 Active Start: 07-09-2023 take 1 tablet by karl th three times weekly levothyroxine (SYNTHROID) 112 mcg tablet Take 1 tablet by mouth three times a week. Monday-Monday 0 07/09/2023 Active Start: 06-15-2023 take 1 tablet by karl th two times weekly levothyroxine (SYNTHROID) 100 mcg tablet Take 1 tablet by mouth two times a week. Mon & Monday06/15/2023 Active Start: 06-15-2023 take 1 tablet by karl th four times weekly levothyroxine (SYNTHROID) 100 mcg tablet Take 1 tablet by mouth four times a week. Mon & Monday 0 06/15/2023 Active Start: 09-14-2019 End: 08-01-2023 take 1 tablet by mouth once daily levothyroxine (SYNTHROID) 75 mcg tablet Take 75 mcg by mouth once daily. 4 09/14/2019 08/01/2023 Discontinued Start: 05-02-2019 LEVOTHYROXINE SODIUM 75 MCG TABS 1 tablet daily LEVOTHYROXINE SODIUM [id number] Delia Puente LPN Comment on above: Take 75 mcg by mouth once daily. Take 1 tablet by karl th four times a week. //Mon/Mon Take 1 tablet by karl th three times a week. Mon/Mon/Mon Take 1 tablet by karl th four times a week. Mon & Monday Take 1 tablet by karl th three times a week. Monday-Monday Take 1 tablet by karl two times a week. Mon & Monday Take 1 tablet by karl five times a week. Monday-Monday psyllium husk (METAMUCIL ORAL) (20 sources) take 5.8 g by mouth once daily psyllium husk (METAMUCIL ORAL) Take 5.8 g by mouth once daily. Active take 5.8 g by mouth once daily p syllium husk (METAMUCIL ORAL) Take 5.8 g by mouth once daily. 0 Active Comment on above: Take 5.8 g by mouth once daily. rosuvastatin calcium 10 mg oral tablet (2 sources) HMG-CoA Reductase Inhibitor Start: take 1 tablet by mouth once daily rosuvastatin (CRESTOR) 10 mg tablet Take 1 tablet by mouth once daily. 90 tablet 1 12/17/2024 Active Completed/Discontinued Medications Medication Drug Class(es) Dates Sig (Normalized) Sig (Original) hydroCHLOROthiazide 12.5 mg / lisinopril 10 mg oral tablet (20 sources) Thiazide Diuretic, Angiotensin Converting Enzyme Inhibitor Start: 05-02-2019 LISINOPRIL-HYDROC HLOROTHIAZIDE 10-12.5 MG TABS 1 tablet daily LISINOPRIL-HYDROC HLOROTHIAZIDE [id number] Delia Puente LPN Comment on above: Take 1 tablet by karl th once daily. Take 1 tablet by karl th every morning. KELP ORAL (20 sources) End: 12-17-2024 take 325 ug by mouth once daily at bedtime KELP ORAL Take 325 mcg by mouth daily at bedtime. iodine supplement 12/17/2024 Discontinued (Other) take 325 ug by mouth once daily at bedtime KELP ORAL Take 325 mcg by mouth daily at bedtime. iodine supplement Active take 325 ug by mouth once daily at bedtime KELP ORAL Take 325 mcg by mouth daily at bedtime. iodine supplement 0 Active KELP ORAL Take b y mouth once daily. 0 Active Comment on above: Take by mouth once d aily. Take 325 mcg by mout h daily at bedtime. iodine supplement KELP TABS (1 source) Start: 05-02-2019 KELP TABS 1 tablet daily (33 mg) KELP TABS [id number] Delia Puente LPN 10 ml lidocaine hydrochloride 10 mg/ml injection (2 sources) Antiarrhythmic, Amide Local Anesthetic Start: 06-24-2024 End: 06-24-2024 lidocaine (PF) 10 mg/mL (1 %) 4 mL injection (XYLOCAINE) Start: 06-24-2024 End: 06-24-2024 4 mL, Injection - FOR ORTHO USE ONLY, ONCE, 1 dose, Starting on Mon06/24/24 at 1104, Until Mon06/24/24 at 1104 meloxicam 15 mg oral tablet (4 sources) Nonsteroidal Anti-inflammatory Drug Start: 09-18-2023 End: 01-24-2024 take 1 tablet by mouth once daily meloxicam (MOBIC) 15 mg tablet Take 1 tablet by mouth once daily. 30 tablet 1 09/18/2023 01/24/2024 Discontinued (Course of therapy completed) Comment on above: Take 1 tablet by mouth once daily. 24 hr metoprolol succinate 100 mg extended release oral tablet (20 sources) beta-Adrenergic Jose Start: 05-02-2019 METOPROLOL SUCCINATE ER 100 MG [id number] 1 tablet daily METOPROLOL SUCCINATE [id number] Delia Puente LPN Comment on above: Take by mouth. Take 100 mg by mouth daily at bedtime. Milk thistle extract (20 sources) Start: 05-02-2019 MILK THISTLE 1000 MG CAPS 1 capsule daily MILK THISTLE [id number] Delia Puente LPN take 50 mg by mouth once daily M ILK THISTLE ORAL Take 1,000 mg by mouth once daily. Includes Dandelion root 50mg Active take 50 mg by mouth once daily M ILK THISTLE ORAL Take 1,000 mg by mouth once daily. Includes Dandelion root 50mg 0 Active take 1000 mg by mouth once daily MILK THISTLE ORAL Take 1,000 mg by mouth once daily. 0 Active Comment on above: Take 1,000 mg by karl th once daily. Take 1,000 mg by karl th once daily. Includes Dandelion root 50mg naproxen sodium 220 mg oral tablet (12 sources) Nonsteroidal Anti-inflammatory Drug Start: 05-02-2019 ALEVE 220 MG TABS 1 tablet twice daily NAPROXEN SODIUM [id number] Delia Kwame [facility] End: 09-18-2023 take 2 capsules by mouth once daily, then take 1 capsule by mouth in the evening naproxen sodium (ALEVE) 220 mg cap Take 2 capsules by mouth once daily. 1 capsule in PM 0 09/18/2023 Discontinued (Changing Therapy/Dosage Form) naproxen sodium (ALEVE) 220 mg cap Take by mouth twice daily. 0 Active Comment on above: Take by mouth twice daily. Take 2 capsules by m out once daily. 1 capsule in PM 1 ml triamcinolone acetonide 40 mg/ml injection (6 sources) Corticosteroid Start: 06-24-2024 End: 06-24-2024 triamcinolone acetonide 40 mg injection (KeNALog 40) Start: 06-24-2024 End: 06-24-2024 40 mg, Injection - FOR ORTHO USE ONLY, ONCE, 1 dose, Starting on Mon06/24/24 at 1104, Until Mon06/24/24 at 1104 Start: 07-02-2019 End: 08-01-2023 triamcinolone acetonide (ALAN ALOG) 0.1 % cream Apply to affected area twice daily. APPLY TO AFFECTED AREA 1 07/02/2019 08/01/2023 Discontinued Comment on above: Apply to affected ar ea twice daily. APPLY TO AFFECTED AREA Problems Active Problems Problem Classification Problem Date Documented Date Episodic/Chronic Abdominal hernia (4 sources) Hernia of anterior abdominal wall; Translations: [Ventral hernia without obstruction or gangrene] 08-01-2023 Episodic Aortic; peripheral; and visceral artery aneurysms (20 sources) Ascending aorta dilatation; Translations: [Thoracic aortic ectasia] Onset: 10-31-2019 07-26-2023 Chronic Cardiac and circulatory congenital anomalies (20 sources) Atrial septal defect; Translations: [ASD (atrial septal defect)] 10-31-2019 Chronic Disorders of lipid metabolism (20 sources) Hypercholesterolemia; Translations: [Pure hypercholesterolemia, unspecified] Onset: 10-31-2019 08-01-2023 Chronic Essential hypertension (20 sources) Hypertensive disorder; Translations: [Essential (primary) hypertension] Onset: 10-31-2019 10-31-2019 Chronic Headache; including migraine (1 source) Headache; including migraine; Translations: [Headache, unspecified] Onset: 11-13-2024 Immunizations and screening for infectious disease (3 sources) Vaccination needed; Translations: [Encounter for immunization] 08-01-2023 Episodic Menopausal disorders (20 sources) Menopausal syndrome; Translations: [Menopausal and female climacteric states] 10-31-2019 Chronic Nutritional deficiencies (20 sources) Vitamin D deficiency; Translations: [Vitamin D deficiency, unspecified] Onset: 10-31-2019 08-01-2023 Chronic Osteoarthritis (9 sources) Osteoarthritis of foot joint; 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] Onset: 05-02-2019 05-02-2019 Chronic Other connective tissue disease (20 sources) Plantar fasciitis; Translations: [Plantar fascial fibromatosis] Onset: 05-02-2019 05-02-2019 Episodic Other connective tissue disease (20 sources) Foot pain; Translations: [Pain in unspecified foot] 10-31-2019 Episodic Other connective tissue disease (20 sources) Calcaneal spur; Translations: [Calcaneal spur, unspecified foot] 10-31-2019 Episodic Other inflammatory condition of skin (20 sources) Psoriasis; Translations: [Psoriasis, unspecified] 10-31-2019 Chronic Other non-traumatic joint disorders (2 sources) Pain in right knee; Translations: [Pain in joint, lower leg] 06-03-2024 Episodic Other nutritional; endocrine; and metabolic disorders (20 sources) Obese class I; Translations: [Obesity, unspecified] Onset: 08-01-2023 08-01-2023 Chronic Other nutritional; endocrine; and metabolic disorders (1 source) Obesity, unspecified; Translations: [Obesity, Class I, BMI 30-34.9] Onset: 08-01-2023 Chronic Other and delivery including normal (20 sources) Delivery normal; Translations: [Encounter for full-term uncomplicated delivery] 10-31-2019 Episodic Other screening for suspected conditions (not mental disorders or infectious disease) (20 sources) Patient encounter status; Translations: [Encounter for screening for malignant neoplasm of cervix] Onset: 10-16-2015 10-31-2019 Episodic Thyroid disorders (20 sources) Hypothyroidism; Translations: [Hypothyroidism, unspecified] Onset: 08-01-2023 10-31-2019 Chronic Transient cerebral ischemia (20 sources) Transient cerebral ischemia; Translations: [Transient cerebral ischemic attack, unspecified] Onset: 10-16-1987 10-31-2019 Chronic Unclassified (1 source) ASD (atrial septal defect); Translations: [ASD (atrial septal defect)] Onset: 10-31-2019 Past or Other Problems Problem Classification Problem Date Documented Da te Episodic/Chronic Diabetes mellitus without complication (20 sources) Prediabetes; Translations: [Prediabetes] Onset: 10-31-2019 08-01-2023 Episodic Joint disorders and dislocations; trauma-related (7 sources) Tear of medial meniscus of knee; Translations: [Other tear of medial meniscus, current injury, right knee, subsequent encounter] Onset: 12-30-2023 12-18-2023 Episodic Other connective tissue disease (20 sources) Bilateral bursitis of hips; Translations: [Other bursitis of hip, right hip] Onset: 11-16-2021 08-01-2023 Episodic Other nutritional; endocrine; and metabolic disorders (20 sources) Blood urate raised; Translations: [Hyperuricemia without signs of inflammatory arthritis and tophaceous disease] Onset: 10-31-2019 08-01-2023 Episodic Unclassified (1 source) Problem Unclassified (1 source) Patient encounter status 12-17-2024 Results Test Name Value Interpretation Reference Range Facility 25(OH)D3 [facility] 2024 25-hydroxyvitamin D3 [Mass/Vol] 65.2 ng/mL Normal 31.0-80.0 [facility] Comment on above: Order Comment: Speci men Type: BLOOD SPECIMEN Ordering Facility: [facility] Address: [address] [place] [address] [place] [address] Performed By: #### 1 989-3 #### [facility] CLIA [id number] [address] [place] [address] [place] Apo B SerPl-mCncon Apolipoprotein B [Mass/Vol] 90 mg/dL High <90 [facility] Comment on above: Order Comment: Speci men Type: BLOOD SPECIMEN Ordering Facility: [facility] Address: [address] [place] [address] Result Comment: Mode rate Risk: 90-129 mg/dL High Risk: >129 mg/dL Performed By: #### 1 989-3 #### [facility] CLIA [id number] [address] [place] [address] [place] BD DXA - AXIAL SKELETONon BD DXA - AXIAL SKELETON * * *Final Report* * * DATE OF EXAM: Dec 17 2024 9:32AM [facility] 0804 - BD DXA - AXIAL SKELETON / PROCEDURE REASON: Routine general medical examination at a health care facility * * * * Physician Interpretation * * * * EXAMINATION: DXA BONE DENSITOMETRY BD DXA - AXIAL SKELETON, BD DXA TRABECLR BONE SCORE (TBS) PATIENT DEMOGRAPHICS: Age: 64 years, Gender: Female SCANNER INFORMATION: DXA Model: SheerID (S/N: [id number]) Date Scanned: 12/17/2024 9:32 AM CLINICAL HISTORY: SCREENING Routine general medical examination at a health care facility . RISK FACTORS FOR OSTEOPOROSIS AND ASSOCIATED FRACTURES REPORTED BY THIS PATIENT: Please refer to Bone Health Questionnaire in the EMR CURRENT THERAPY: Please refer to Bone Health Questionnaire in the EMR TECHNICAL LIMITATIONS: Degenerative disease of the spine RESULTS: Lumbar Spine (L1, L2, L3, L4): Total BMD: 1.344 g/cm2, T-score: 1.4, Z-score: 1.8 Lumbar spine: 10/31/19: 1.276 g/cm2 Statistically significant increase Right Femoral Neck: 1.259 g/cm2, T-score 1.6 , Z-score 2.4 Right Total Hip: 1.211 g/cm2 , T-score 1.6 , Z-score 2.1 Left Femoral Neck: 1.285 g/cm2, T-score 1.8 , Z-score 2.6 Left Femoral Neck: 10/31/19: 1.269 g/cm2 No statistically significant change Left Total Hip: 1.243 g/cm2, T-score 1.9 , Z-score 2.3 Left Total Hip: 10/31/19: 1.231 g/cm2 No statistically significant change CHANGE IS STATISTICALLY SIGNIFICANT IN THE SPINE OR HIP IF GREATER THAN OR EQUAL TO 0.04 g/cm2 VERTEBRAL FRACTURE ASSESSMENT Not performed. TRABECULAR BONE ASSESSMENT TBS score: 1.359 Bone micro-architecture: normal (> 1.310) IMPRESSION: THE LOWEST T-SCORE IS 1.4 IN THE SPINE 1) DIAGNOSIS (based on BMD alone): NORMAL BONE DENSITY - Caution: Medical conditions other than osteoporosis may cause low bone density, such as osteomalacia or renal osteodystrophy. Clinical correlation is necessary. 2) FRACTURE RISK (based on BMD and TBS) - LOW - Caution: Fracture risk may be increased independent of BMD in patients with corticosteroid use, age greater than 65 years, or a history of prior fragility fracture. - FRAX was not calculated: normal bone density RECOMMENDATIONS: Follow-up in 2 years or as clinically indicated. Patients that are taking corticosteroids, are transplant recipients or have hyperparathyroidism should have annual follow-up. Follow-up scans should always be done on the same machine for accurate comparison. FOR MORE INFORMATION ABOUT DIAGNOSIS AND TREATMENT: [facility] Center for Osteoporosis and Metabolic Bone Disease:? [email or web address].org/arthritis/os samantha National Osteoporosis Foundation:? www.nof.org International Society of Clinical Densitometry www.iscd.org Occupational Therapy Technician: sens Transcribe Date/Time: Dec 17 2024 10:03A Dictated by : EN HANLEY MD This examination was interpreted and the report reviewed and electronically signed by: EN HANLEY MD on Dec 19 2024 4:23PM EST [id number] 1.4 Normal [facility] BD DXA TRABECLR BONE SCORE ( TBS)on 12-17-2024 BD DXA TRABECLR BONE SCORE (TBS) * * *Final Report* * * DATE OF EXAM: Dec 17 2024 9:32AM [facility] DXA TRABECLR BONE SCORE (TBS) / PROCEDURE REASON: Routine general medical examination at a health care facility * * * * Physician Interpretation * * * * EXAMINATION: DXA BONE DENSITOMETRY BD DXA - AXIAL SKELETON, BD DXA TRABECLR BONE SCORE (TBS) PATIENT DEMOGRAPHICS: Age: 64 years, Gender: Female SCANNER INFORMATION: DXA Model: A21 [employer] (S/N: [id number]) Date Scanned: 12/17/2024 9:32 AM CLINICAL HISTORY: SCREENING Routine general medical examination at a health care facility . RISK FACTORS FOR OSTEOPOROSIS AND ASSOCIATED FRACTURES REPORTED BY THIS PATIENT: Please refer to Bone Health Questionnaire in the EMR CURRENT THERAPY: Please refer to Bone Health Questionnaire in the EMR TECHNICAL LIMITATIONS: Degenerative disease of the spine RESULTS: Lumbar Spine (L1, L2, L3, L4): Total BMD: 1.344 g/cm2, T-score: 1.4, Z-score: 1.8 Lumbar spine: 10/31/19: 1.276 g/cm2 Statistically significant increase Right Femoral Neck: 1.259 g/cm2, T-score 1.6 , Z-score 2.4 Right Total Hip: 1.211 g/cm2 , T-score 1.6 , Z-score 2.1 Left Femoral Neck: 1.285 g/cm2, T-score 1.8 , Z-score 2.6 Left Femoral Neck: 10/31/19: 1.269 g/cm2 No statistically significant change Left Total Hip: 1.243 g/cm2, T-score 1.9 , Z-score 2.3 Left Total Hip: 10/31/19: 1.231 g/cm2 No statistically significant change CHANGE IS STATISTICALLY SIGNIFICANT IN THE SPINE OR HIP IF GREATER THAN OR EQUAL TO 0.04 g/cm2 VERTEBRAL FRACTURE ASSESSMENT Not performed. TRABECULAR BONE ASSESSMENT TBS score: 1.359 Bone micro-architecture: normal (> 1.310) IMPRESSION: THE LOWEST T-SCORE IS 1.4 IN THE SPINE 1) DIAGNOSIS (based on BMD alone): NORMAL BONE DENSITY - Caution: Medical conditions other than osteoporosis may cause low bone density, such as osteomalacia or renal osteodystrophy. Clinical correlation is necessary. 2) FRACTURE RISK (based on BMD and TBS) - LOW - Caution: Fracture risk may be increased independent of BMD in patients with corticosteroid use, age greater than 65 years, or a history of prior fragility fracture. - FRAX was not calculated: normal bone density RECOMMENDATIONS: Follow-up in 2 years or as clinically indicated. Patients that are taking corticosteroids, are transplant recipients or have hyperparathyroidism should have annual follow-up. Follow-up scans should always be done on the same machine for accurate comparison. FOR MORE INFORMATION ABOUT DIAGNOSIS AND TREATMENT: [facility] Center for Osteoporosis and Metabolic Bone Disease:? [email or web address].org/arthritis/os samantha National Osteoporosis Foundation:? www.nof.org International Society of Clinical Densitometry www.iscd.org Occupational Therapy Technician: alverto Transcribe Date/Time: Dec 17 2024 10:03A Dictated by : EN HANLEY MD This examination was interpreted and the report reviewed and electronically signed by: EN HANLEY MD on Dec 19 2024 4:23PM EST [id number] 1.4 Normal [facility] CBC W Auto Differential pane l (Bld)on 12-17-2024 Basophils (Bld) [#/Vol] 0.04 10*3/uL Normal <0.11 [facility] Comment on above: Order Comment: Speci men Type: BLOOD SPECIMENOrdering Facility: [facility] Address: [address] [place] [address] Performed By: #### 5 7021-8 ####[facility] LABCLIA [id number] [place] [address] [place] Basophils/100 WBC (Bld) 0.9 % Normal [facility] Comment on above: Order Comment: Speci men Type: BLOOD SPECIMENOrdering Facility: [facility] Address: [address] [place] [address] Performed By: #### 5 7021-8 ####[facility] LABCLIA [id number] [place] [address] [place] Differential cell count method Nom (Bld) Auto Normal [facility] Comment on above: Order Comment: Speci men Type: BLOOD SPECIMENOrdering Facility: [facility] Address: [address] [place] [address] Performed By: #### 5 7021-8 ####[facility] LABCLIA [id number] [place] [address] [place] Eosinophils (Bld) [#/Vol] 0.05 10*3/uL Normal <0.46 [facility] Comment on above: Order Comment: Speci men Type: BLOOD SPECIMENOrdering Facility: [facility] Address: [address] [place] [address] Performed By: #### 5 7021-8 ####[facility] LABCLIA [id number] [facility] [address], [facility] [place] Eosinophils/100 WBC (Bld) 1.1 % Normal [facility] Comment on above: Order Comment: Speci men Type: BLOOD SPECIMENOrdering Facility: [facility] Address: [address] [place] [address] Performed By: #### 5 7021-8 ####[facility] LABCLIA [id number] [address], [place] [address] [place] Erythrocyte distribution width (RBC) [Ratio] 12.1 % Normal 11.5-15.0 [facility] Comment on above: Order Comment: Speci men Type: BLOOD SPECIMENOrdering Facility: [facility] Address: [address] [place] [address] Performed By: #### 5 7021-8 ####[facility] LABIA [id number] [address] [place] Hematocrit (Bld) [Volume fraction] 39.4 % Normal 36.0-46.0 [facility] Comment on above: Order Comment: Speci men Type: BLOOD SPECIMENOrdering Facility: [facility] Address: [address] [place] [address] Performed By: #### 5 7021-8 ####[facility] LABIA [id number] [place] [id number] [place] Hemoglobin (Bld) [Mass/Vol] 13.2 g/dL Normal 11.5-15.5 [facility] Comment on above: Order Comment: Speci men Type: BLOOD SPECIMENOrdering Facility: [facility] Address: [address] [place] [address] Performed By: #### 5 7021-8 ####[facility] LABCLIA [id number] [place] [address] [place] Immature granulocytes (Bld) [#/Vol] 10*3/uL Normal <0.10 [facility] Comment on above: Order Comment: Speci men Type: BLOOD SPECIMENOrdering Facility: [facility] Address: [address] [place] [address] Performed By: #### 5 7021-8 ####[facility] LABCLIA [id number] [place] [address] [place] Immature granulocytes/100 WBC (Bld) 0.4 % Normal [facility] Comment on above: Order Comment: Speci men Type: BLOOD SPECIMENOrdering Facility: [facility] Address: [address] [place] [address] Performed By: #### 5 7021-8 ####[facility] LABCLIA [id number] [place] [address] [place] Lymphocytes (Bld) [#/Vol] 1.44 10*3/uL Normal 1.00-4.00 [facility] Comment on above: Order Comment: Speci men Type: BLOOD SPECIMENOrdering Facility: [facility] Address: [address] [place] [address] Performed By: #### 5 7021-8 ####[facility] LABCLIA [id number] [place] [address] [place] Lymphocytes/100 WBC (Bld) 31.0 % Normal [facility] Comment on above: Order Comment: Speci men Type: BLOOD SPECIMENOrdering Facility: [facility] Address: [address] [place] [address] Performed By: #### 5 7021-8 ####[facility] LABCLIA [id number] [place] [address] [place] MCH (RBC) [Entitic mass] 34.1 pg High 26.0-34.0 [facility] Comment on above: Order Comment: Speci men Type: BLOOD SPECIMENOrdering Facility: [facility] Address: [address] [place] [address] Performed By: #### 5 7021-8 ####[facility] LABIA [id number] [place] [address] [place] MCHC (RBC) [Mass/Vol] 33.5 g/dL Normal 30.5-36.0 [facility] Comment on above: Order Comment: Speci men Type: BLOOD SPECIMENOrdering Facility: [facility] Address: [address] [place] [address] Performed By: #### 5 7021-8 ####[facility] LABIA [id number] [place] [address] [place] MCV (RBC) [Entitic vol] 101.8 fL High 80.0-100.0 [facility] Comment on above: Order Comment: Speci men Type: BLOOD SPECIMENOrdering Facility: [facility] Address: [address] [place] [address] Performed By: #### 5 7021-8 ####[facility] LABIA [id number] [place] [address] [place] Monocytes (Bld) [#/Vol] 1.10 10*3/uL High <0.87 [facility] Comment on above: Order Comment: Speci men Type: BLOOD SPECIMENOrdering Facility: [facility] Address: [address] [place] [address] Performed By: #### 5 7021-8 ####[facility] LABIA [id number] [place] [address] [place] Monocytes/100 WBC (Bld) 23.7 % Normal [facility] Comment on above: Order Comment: Speci men Type: BLOOD SPECIMENOrdering Facility: [facility] Address: [address] [place] [address] Performed By: #### 5 7021-8 ####[facility] LABCLIA [id number] [address], [place] [address] [place] Neutrophils (Bld) [#/Vol] 1.99 10*3/uL Normal 1.45-7.50 [facility] Comment on above: Order Comment: Speci men Type: BLOOD SPECIMENOrdering Facility: [facility] Address: [address] [place] [address] Performed By: #### 5 7021-8 ####[facility] LABCLIA [id number] [facility] [address], [place] [address] [place] Neutrophils/100 WBC (Bld) 42.9 % Normal [facility] Comment on above: Order Comment: Speci men Type: BLOOD SPECIMENOrdering Facility: [facility] Address: [address] [place] [address] Performed By: #### 5 7021-8 ####[facility] LABCLIA [id number] [address], [place] [address] [place] Nucleated RBC (Bld) [#/Vol] 0.02 10*3/uL High <0.01 [facility] Comment on above: Order Comment: Speci men Type: BLOOD SPECIMENOrdering Facility: [facility] Address: [address] [place] [address] Performed By: #### 5 7021-8 ####[facility] LABCLIA [id number] [facility] [address], [facility] [place] Nucleated RBC/100 WBC (Bld) [Ratio] 0.4 /100 WBC Normal [facility] Comment on above: Order Comment: Speci men Type: BLOOD SPECIMENOrdering Facility: [facility] Address: [address] [place] [address] Performed By: #### 5 7021-8 ####[facility] LABCLIA [id number] [address] [place] [address] [place] Platelet mean volume (Bld) [Entitic vol] 10.7 fL Normal 9.0-12.7 [facility] Comment on above: Order Comment: Speci men Type: BLOOD SPECIMENOrdering Facility: [facility] Address: [address] [place] [address] Performed By: #### 5 7021-8 ####[facility] LABIA [id number] [place] [address] [place] Platelets (Bld) [#/Vol] 267 10*3/uL Normal 150-400 [facility] Comment on above: Order Comment: Speci men Type: BLOOD SPECIMENOrdering Facility: [facility] Address: [address] [place] [address] Performed By: #### 5 7021-8 ####[facility] LABIA [id number] [place] [address] [place] RBC (Bld) [#/Vol] 3.87 10*6/uL Low 3.90-5.20 [place] Comment on above: Order Comment: Speci men Type: BLOOD SPECIMENOrdering Facility: [facility] Address: [address] [place] [address] Performed By: #### 5 7021-8 ####[facility] LABIA [id number] [place] [address] [place] WBC (Bld) [#/Vol] 4.64 10*3/uL Normal 3.70-11.00 [place] Comment on above: Order Comment: Speci men Type: BLOOD SPECIMENOrdering Facility: [facility] Address: [address] [place] [address] Performed By: #### 5 7021-8 ####[facility] LABIA [id number] [place] [id number] [place] CNOVon 12-17-2024 CNOV Office Visit (EXEPMN ) -------- NATHANAELJOSH Tan ([id number]) 1960 F Date Time Provider Department 12/17/24 2:00 PM DAVID HULL EXEPMN During your visit today, we recorded the following information about you: Temperature Pulse Blood pressure Weight 98.2 degrees 66/minute 112/76 99.7 kg Height 1.753 m Tyrese Pandey RN 12/17/2024 5:27 PM Signed Pt. was identified by name and birthdate. Latex allergy: No Pend Hep C (needs completed once ages 18-79 years) 2020 Pend HIV (needs completed once ages 13-64 years) na/age Medications will be reviewed by MD. Medication list reviewed by RN. Importance of a current medication list discussed with pt. Patient verbalizes good understanding. Date of last Colonoscopy: Colonoscopy at age 53;2023; Cologuard Next Due: 2026 Immunizations Reviewed the following vaccines with patient. See also immunization section in [facility] for vaccine history and vaccines patient received today. Td-na Tdap-2016 Pneumococcal- (Pneumovax 23)-1998 Prevnar 13- na PCV -2022 Hepatitis A-na Hepatitis B-na Influenza-2022; given today Shingrix-x2; 2020 Covid-19 3236-3482- 2022; given today RSV- 2022 See Immunization [facility] in [facility]. Discussed with patient current recommendations from the CDC for routine adult immunizations. Questions answered. Pt. verbalizes understanding of information discussed. Provided patient with [facility] Immunization System Document and VIS sheet. VISUAL ACUITY Patient declines vision exam Date of Last Exam - 2023 Vision Correction Reading Glasses David Hull MD 12/17/2024 5:27 PM Signed HEALTH EVALUATION ON: Josh Huffman [address] [facility] [address] DATE OF EXAMINATION: December 17, 2024 Age: [age] year old Clinic No. : [id number] PRESENT COMPLAINTS: Physical examination. MEDICATION ALLERGIES: None. PRESENT MEDICATIONS: Lisinopril HCTZ 10/12.5 mg. Take one tablet daily. Toprol XL 100 mg. Take one tablet daily. Synthroid (levothyroxine) 100 mcg once daily 2x/week (SatANDS). Synthroid (levothyroxine) 112 mcg once daily 5x/week (Mon-Mon). Celebrex 200 mg. Take one tablet daily. Aspirin 81 mg. Take one tablet daily. Voltaren gel. Apply as needed. Vitamin B12 500 mcg. Take one tablet daily. Vitamin D3 2000 IU. Take one tablet daily. Metamucil. Take one scoop daily. Milk thistle with dandelion 500 mg. Take one tablet daily. PAST MEDICAL HISTORY: Coronary artery calcium score of 0 AU (10/2019). Hyperlipidemia (10/2019). Elevated Lp(a). Prediabetes (07/2023: TYT=295, A1c=5.9%). Ascending aorta dilation (4.[address] 10/2019-07/2023). Transient Ischemic Attack (1987; during first , diagnosed ASD, repaired at [facility] after delivery). Atrial Septal Defect (1987; repaired at [facility] at age 27). Hypertension (2012). Hypothyroidism (2016). Postmenopause Psoriasis (scalp). Right plantar fasciitis (treated with Tenex). Vitamin D deficiency (10/2019: 19.7). Low-normal Vitamin B12 - 10/2019. Elevated uric acid in blood (without gout, 10/2019). Bilateral hip bursitis, treated with injection (11/2021). Right knee osteoarthritis (11/2021). Mild bilateral hearing loss. PAST SURGICAL AND PROCEDURE HISTORY: Traumatic splenectomy (1968). Tonsillectomy ((1975). ASD repair (1987). Right LASIK (2001). Colonoscopy (latest on 07/23/2012): Normal except for hemorrhoids and diverticulosis. Follow-up in 10 years recommended. Toe surgery (2012). Bilateral greater and left lesser saphenous vein laser surgery (2017). Right ultrasound-guided plantar fasciotomy (12/2020). Stress test (07/2023): Normal at 114% maximum predicted heart rate and 6.4 METS. CTA of the chest (07/2023): Mild to moderate dilatation of the ascending aorta at 4.3 cm. No significant change when compared to 2019. Groundglass opacities noted in the left upper lobe likely a remnant of past COVID infections. Cologuard test (10/2023): Negative. Right knee arthroscope (01/2024). FAMILY MEDICAL HISTORY: Mother age 92. She had a history of lung cancer diagnosed later in life., Cardiac stent placement at age 69, pacemaker, psoriasis, and psoriatic arthritis. Father age 79. He had a history of prostate cancer that metastasized to his bone. He also had a history of brain aneurysm. Sister, age 68, has a history of melanoma. Brother at age 63 from throat cancer complications (diagnosed at age 61). He had alcohol abuse, alcohol-related dementia and had a head injury at age 29. Son (Esteban), age 37, has type 1 diabetes. He has three daughters, all healthy. Son (Antonio), age 35, is healthy. Son (Sorin), age 31, has hearing loss and wears a hearing aid since age 4. Paternal grandmother had diabetes. SOCIAL HISTORY: Is to [place] since 1981 Follows a regular diet. Had smoked 0.25 pack per day for 4 years but quit in 1979. (more content not included)... Normal [facility] CN Office Visit (EXEPMN ) -------- JOSH HUFFMAN ([id number]) 1960 F Date Time Provider Department 12/17/24 11:30 AM RAILROAD WATCHMAN DIPTI During your visit today, we recorded the following information about you: Tejas Garrido, Licensed Funeral Director And Embalmer 12/25/2024 10:33 AM Signed [facility] Summary The information included in this report is a comprehensive overview of the components of fitness necessary to maintain a higher quality of life. Upon completion of the fitness evaluation, this information has been customized to each individual in order for the evaluated individual to understand and utilize the major components of fitness, as well as the proper guidelines for exercising in a safe and effective manner. Each program is compiled as specified to individual needs and health goals. Patient Name: Josh Clements Date: December 17, 2024 [facility] Number: [id number] Patients Health Rankin Patients Fitness Rankin Health Related Goals: Patients goals are to stay healthy, be more active and spend more time outside. Fitness Activity: Exercises aerobically (2 miles in treadmill at 3 mph) at 2-3 days per week. Health Limitations: 1. Coronary artery calcium score of 0 AU (10/2019, and today). 2. Hyperlipidemia with a direct LDL cholesterol of 123 mg/dL. Your goal is less than 100 mg/dL. 3. Elevated Lp(a). Lp(a) is a fraction of the LDL cholesterol that has been linked to an increased risk for cardiovascular disease and is frequently present in families with premature vascular disease. People with elevated Lp(a) cholesterol levels, particularly greater than 40, have a two to three times higher risk for future cardiovascular events. Lp(a) levels virtually doesn't change throughout your lifetime. There is not much that you can do to lower your Lp(a) levels and there is no prospective data to show that lowering Lp(a) levels results in lower risk for future cardiovascular events. The conservative approach is to get your LDL less than 100 mg/dl, with less than 70 mg/dl 4. Prediabetes with an A1c of 5.8%. 5. Ascending aorta dilation (4.5 cm). 6. Atherosclerotic plaque in the origins of both right left internal carotid arteries and distal right common carotid artery without significant stenosis. 7. Atherosclerotic plaque noted in the mid abdominal aorta. 8. Transient ischemic attack (1987; during first , diagnosed ASD, repaired at [facility] after delivery). 9. Atrial septal defect (1987; repaired at [facility] at age 27). 10. Hypertension (2013). 11. Hypothyroidism (2017). Current dose of levothyroxine is appropriate. 12. Elevated ferritin level with normal iron studies. 13. Elevated ultrasensitive CRP (5.1). This could be due to excess weight. However, CRP is a marker for inflammation and has been recognized as an independent risk factor for cardiovascular events. Aspirin has been shown to prevent future vascular events in those with elevated CRP levels. In addition, weight loss, aerobic exercise, and statin medications (e.g. Lipitor, Zocor, Pravachol) have been shown to reduce ultrasensitive CRP levels. 14. Postmenopause. 15. Psoriasis (scalp). 16. Right plantar fasciitis (treated with Tenex). 17. Vitamin D deficiency (10/2019: 19.7). Current vitamin D level is normal on replacement therapy. 18. Bilateral hip bursitis, treated with injection (11/2021). 19. Right knee osteoarthritis (11/2021). 20. Minimal bilateral high frequency hearing loss > 6000 Hz. 21. Osteoarthritis of hands. Orthopedic Limitations/ Chronic Pain: Neck Stiffness, R Knee, R Plantar Fitness Testing: See attached results for comparison of standards for age and gender. 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 Balance: Below Normal Squat Test: Normal Exercise Recommendations: Type of exercise: Frequency (week) Duration (min) Mode: Notes: Cardiovascular: Frequency should be a minimum 5-7 times per week of moderate intensity or 3-4 of vigorous intensity. 30-60 minutes Recommended examples include, but are not limited to: Running, biking, hiking, elliptical, swimming, dancing, aerobics, spinning Maintain a minimum of 150 minutes of cumulative cardiovascular exercise each week to meet [place] [employer] Association Guidelines. Anything beyond ten minutes of continuous cardiovascular exercise counts towards the 150 minute goal. Resistance: Frequency should be a minimum of two times per week for each major muscle group. When isolating muscles, the frequency may need to increase. 20-30 minutes CLX Band Strength Program Safety and Effectiveness: Provide slow resistance in each direction and adapt the resistance to suit your strength capabilities. Allow for a day of rest in between sessions of the same mu (more content not included)... Normal [facility] CRP SerPl HS-mCncon 12-18-19 25 CRP High sensitivity method [Mass/Vol] 5.1 mg/L High <3.1 [facility] Comment on above: Order Comment: Speci men Type: BLOOD SPECIMENOrdering Facility: [facility] Address: [address] [place] [address] Result Comment: hsCR P < 1.0 mg/L, relative risk is low hsCRP 1.0-3.0 mg/L, relative risk is average hsCRP > 3.0 mg/L, relative risk is high Reference: Mckenna TA, Macey GA, Jaylon RW, et al. Markers of Inflammation and Cardiovascular Disease. Application to Clinical and Public Health Practice. A Statement for Healthcare Professionals from the Centers for Disease Control and Prevention and the [place] [employer]. Circulation 2003;107:499-511. Performed By: #### 1 8262-6, 2324-2, 48419-4 ####[facility] LABCLIA [id number] [address] [facility] CT CALCIUM SCORING SELF Brooklynn n 12-17-2024 CT CALCIUM SCORING SELF PAY * * *Final Report* * * DATE OF EXAM: Dec 17 2024 12:33PM [facility] 2104 - CT CALCIUM SCORING SELF PAY / PROCEDURE REASON: Encounter for screening for cardiovascular disorders * * * * Physician Interpretation * * * * Examination: CT Coronary Calcium Score Direct Image Comparison: None HISTORY: 64 years old Female with concern for coronary artery disease. There is request to assess coronary calcification TECHNIQUE: SCANNER: Siemens Definition Edge scanner 128 slice scanner PROTOCOL: Sequential imaging with prospective triggering and 3-mm slice reconstruction was performed without contrast administration. Scan Range: emelia to the base of the heart Scan acquisition was uncomplicated Tube Voltage: [address] Dose-Length Product (DLP): [address] Dose Reduction Employed: Automated exposure control (AEC) CONTRAST: None For optimization of anatomic evaluation, off-line postprocessing was performed on a dedicated workstation by the interpreting physician. STUDY LIMITATIONS: None. RESULT: LINES, TUBES and DEVICES: None limited CHEST: visualized Chest wall anatomy: unremarkable. visualized LUNGS: bibasilar atelectasis. visualized MEDIASTINUM: mediastinal lymph nodes, which are at the upper size of normal. PERICARDIUM: unremarkable CENTRAL PULMONARY ARTERY: normal dimensions, assessment is limited due to lack of contrast enhancement CARDIAC CHAMBERS: assessment is limited in the non-contrast study Overall normal dimensions AORTIC VALVE: Assessment is limited in the current study; no leaflet calcification visualized AORTA: Size: Ectasia/Mild Dilation ascending aorta. Pathology: Assessment for acute aortic pathology is limited in the non-contrast study STJ: maintained. Wall Changes: no wall calcification. AORTIC DIMENSIONS: AORTIC ROOT: 3.6 cm measured [id number] mid ASCENDING THORACIC AORTA: 4.5 cm mid DESCENDING THORACIC AORTA: 2.7 cm CORONARY ANATOMY: Normal origin of the coronary arteries Calcium Score (Agatston Units): LM: 0 AU LAD: 0 AU LCx: 0 AU RCA: 0 AU Other: 0 AU Total: 0 AU Global Risk Management Director (topogram) images: No additional findings. IMPRESSION: NO CORONARY CALCIFICATION - Total Coronary Calcium Score (CAC) = 0 AU - mid ASCENDING THORACIC AORTA: 4.5 cm Recommend Cardiology consultation and Consider contrast enhanced Thoracic Aorta CTA or MRI/MRA for definitive evaluation. Occupational Therapy Technician: [facility] Transcribe Date/Time: Dec 17 2024 12:54P Dictated by : THERESA VICENTE DO This examination was interpreted and the report reviewed and electronically signed by: THERESA VICENTE DO on Dec 17 2024 1:53PM EST [id number] Normal [facility] CT Heart and Coronary arteri es for calcium scoring WO contraston 12-17-2024 IMPRESSION: NO CORON LUISITO CALCIFICATION - Total Coronary Calcium Score (CAC) = 0 AU - mid ASCENDING THORACIC AORTA: 4.5 cm Recommend Cardiology consultation and Consider contrast enhanced Thoracic Aorta CTA or MRI/MRA for definitive evaluation. Occupational Therapy Technician: [facility] Transcribe Date/Time: Dec 17 2024 12:54P Dictated by : THERESA VICENTE DO This examination was interpreted and the report reviewed and electronically signed by: THERESA VICENTE DO on Dec 17 2024 1:53PM EST DIVISION OF RADIOLOGY * * *Final Report* * * DATE OF EXAM: Dec 17 2024 12:33PM [facility] 2104 - CT CALCIUM SCORING SELF PAY / PROCEDURE REASON: Encounter for screening for cardiovascular disorders * * * * Physician Interpretation * * * * Examination: CT Coronary Calcium Score Direct Image Comparison: None HISTORY: 64 years old Female with concern for coronary artery disease. There is request to assess coronary calcification TECHNIQUE: SCANNER: Siemens Definition Edge scanner 128 slice scanner PROTOCOL: Sequential imaging with prospective triggering and 3-mm slice reconstruction was performed without contrast administration. Scan Range: emelia to the base of the heart Scan acquisition was uncomplicated Tube Voltage: [address] Dose-Length Product (DLP): [address] Dose Reduction Employed: Automated exposure control (AEC) CONTRAST: None For optimization of anatomic evaluation, off-line postprocessing was performed on a dedicated workstation by the interpreting physician. STUDY LIMITATIONS: None. RESULT: LINES, TUBES and DEVICES: None limited CHEST: visualized Chest wall anatomy: unremarkable. visualized LUNGS: bibasilar atelectasis. visualized MEDIASTINUM: mediastinal lymph nodes, which are at the upper size of normal. PERICARDIUM: unremarkable CENTRAL PULMONARY ARTERY: normal dimensions, assessment is limited due to lack of contrast enhancement CARDIAC CHAMBERS: assessment is limited in the non-contrast study Overall normal dimensions AORTIC VALVE: Assessment is limited in the current study; no leaflet calcification visualized AORTA: Size: Ectasia/Mild Dilation ascending aorta. Pathology: Assessment for acute aortic pathology is limited in the non-contrast study STJ: maintained. Wall Changes: no wall calcification. AORTIC DIMENSIONS: AORTIC ROOT: 3.6 cm measured [id number] mid ASCENDING THORACIC AORTA: 4.5 cm mid DESCENDING THORACIC AORTA: 2.7 cm CORONARY ANATOMY: Normal origin of the coronary arteries Calcium Score (Agatston Units): LM: 0 AU LAD: 0 AU LCx: 0 AU RCA: 0 AU Other: 0 AU Total: 0 AU Global Risk Management Director (topogram) images: No additional findings. DIVISION OF RADIOLOGY Provider, [facility] - 12/17/2024 * * *Final Report* * * DATE OF EXAM: Dec 17 2024 12:33PM [facility] 2105 - CT CALCIUM SCORING SELF PAY / PROCEDURE REASON: Encounter for screening for cardiovascular disorders * * * * Physician Interpretation * * * * Examination: CT Coronary Calcium Score Direct Image Comparison: None HISTORY: 64 years old Female with concern for coronary artery disease. There is request to assess coronary calcification TECHNIQUE: SCANNER: Siemens Definition Edge scanner 128 slice scanner PROTOCOL: Sequential imaging with prospective triggering and 3-mm slice reconstruction was performed without contrast administration. Scan Range: emelia to the base of the heart Scan acquisition was uncomplicated Tube Voltage: [address] Dose-Length Product (DLP): [address] Dose Reduction Employed: Automated exposure control (AEC) CONTRAST: None For optimization of anatomic evaluation, off-line postprocessing was performed on a dedicated workstation by the interpreting physician. STUDY LIMITATIONS: None. RESULT: LINES, TUBES and DEVICES: None limited CHEST: visualized Chest wall anatomy: unremarkable. visualized LUNGS: bibasilar atelectasis. visualized MEDIASTINUM: mediastinal lymph nodes, which are at the upper size of normal. PERICARDIUM: unremarkable CENTRAL PULMONARY ARTERY: normal dimensions, assessment is limited due to lack of contrast enhancement CARDIAC CHAMBERS: assessment is limited in the non-contrast study Overall normal dimensions AORTIC VALVE: Assessment is limited in the current study; no leaflet calcification visualized AORTA: Size: Ectasia/Mild Dilation ascending aorta. Pathology: Assessment for acute aortic pathology is limited in the non-contrast study STJ: maintained. Wall Changes: no wall calcification. AORTIC DIMENSIONS: AORTIC ROOT: 3.6 cm measured [id number] mid ASCENDING THORACIC AORTA: 4.5 cm mid DESCENDING THORACIC AORTA: 2.7 cm CORONARY ANATOMY: Normal origin of the coronary arteries Calcium Score (Agatston Units): LM: 0 AU LAD: 0 AU LCx: 0 AU RCA: 0 AU Other: 0 AU Total: 0 AU Global Risk Management Director (topogram) images: No additional findings. IMPRESSION IMPRESSION: NO CORONARY CALCIFICATION - Total Coronary Calcium Score (CAC) = 0 AU - mid ASCENDING THORACIC AORTA: 4.5 cm Recommend Cardiology consultation and Consider contrast enhanced Thoracic Aorta CTA or MRI/MRA for definitive evaluation. Occupational Therapy Technician: PSCB Transcribe Date/Time: Dec 17 2024 12:54P Dictated by : THERESA VICENTE DO This examination was interpreted and the report reviewed and electronically signed by: THERESA VICENTE DO on Dec 17 2024 1:53PM EST [facility] Radiology Study observation (narrative) [facility] CT Heart and Coronary arteri es for calcium scoring WO contrastOrdered By: Ccf Provider on 12-17-2024 [facility] Cholesterol in LDL Direct as say [Mass/Vol]on 12-17-2024 Cholesterol in LDL [Mass/Vol] 123 mg/dL High <100 [facility] Comment on above: Order Comment: Speci men Type: BLOOD SPECIMENOrdering Facility: [facility] Address: [address] [place] [address] Result Comment: <100 mg/dL, Optimal 100-129 mg/dL, Near optimal/above optimal 130-159 mg/dL, Borderline high 160-189 mg/dL, High >189 mg/dL, Very high Secondary prevention optimal LDL Cholesterol levels are recommended to be < 70 mg/dL Performed By: #### 1 8262-6, 2324-2, 71689-2 ####[facility] [id number] [place] [address] [place] Cholesterol in VLDL [Mass/Vol] 7 mg/dL Normal <30 [facility] Comment on above: Order Comment: Speci men Type: BLOOD SPECIMENOrdering Facility: [facility] Address: [address] [place] [address] Performed By: #### 1 8262-6, 2324-2, 62877-1 ####[facility] [id number] [place] [address] [place] Comprehensive metabolic 2000 panelon 12-17-2024 Albumin [Mass/Vol] 4.1 g/dL Normal 3.9-4.9 [facility] Comment on above: Order Comment: Speci men Type: BLOOD SPECIMEN [facility] Address: [address] [place] [address] Performed By: #### 1 989-3 #### [facility] CLIA [id number] [address] [place] [address] [place] ALP [Catalytic activity/Vol] 65 U/L Normal 34-123 [facility] Comment on above: Order Comment: Speci men Type: BLOOD SPECIMEN [facility] Address: [address] [place] [address] Performed By: #### 1 989-3 #### [facility] CLIA [id number] [address] [place] [address] [place] ALT [Catalytic activity/Vol] 20 U/L Normal 7-38 [facility] Comment on above: Order Comment: Speci men Type: BLOOD SPECIMEN [facility] Address: [address] [place] [address] Performed By: #### 1 989-3 #### [facility] CLIA [id number] [address] [place] [address] [place] Anion gap [Moles/Vol] 12 mmol/L Normal 8-15 [facility] Comment on above: Order Comment: Speci men Type: BLOOD SPECIMEN [facility] Address: [address] [place] [address] Performed By: #### 1 989-3 #### [facility] CLIA [id number] [address] [place] [address] [place] AST [Catalytic activity/Vol] 29 U/L Normal 13-35 [facility] Comment on above: Order Comment: Speci men Type: BLOOD SPECIMEN [facility] Address: [address] [place] [address] Performed By: #### 1 989-3 #### [facility] CLIA [id number] [address] [place] [address] [place] Bilirubin [Mass/Vol] 0.4 mg/dL Normal 0.2-1.3 [facility] Comment on above: Order Comment: Speci men Type: BLOOD SPECIMEN [facility] Address: [address] [place] [address] Performed By: #### 1 989-3 #### [facility] CLIA [id number] [address] [place] [address] [place] Calcium [Mass/Vol] 9.2 mg/dL Normal 8.5-10.2 [facility] Comment on above: Order Comment: Speci men Type: BLOOD SPECIMEN [facility] Address: [address] [place] [address] Performed By: #### 1 989-3 #### [facility] CLIA [id number] [address] [place] [address] [place] Chloride [Moles/Vol] 92 mmol/L Low 98-107 [facility] Comment on above: Order Comment: Speci men Type: BLOOD SPECIMEN [facility] Address: [address] [place] [address] Performed By: #### 1 989-3 #### [facility] CLIA [id number] [address] [place] [address] [place] CO2 [Moles/Vol] 26 mmol/L Normal 22-30 [facility] Comment on above: Order Comment: Speci men Type: BLOOD SPECIMEN [facility] Address: [address] [place] [address] Performed By: #### 1 989-3 #### [facility] CLIA [id number] [address] [place] [address] [place] [facility] Creatinine [Mass/Vol] 0.78 mg/dL Normal 0.58-0.96 [facility] Comment on above: Order Comment: Speci men Type: BLOOD SPECIMEN [facility] Address: [address] [place] [address] Performed By: #### 1 989-3 #### [facility] CLIA [id number] [address] [place] [address] Creatinine and Glomerular filtration rate.predicted panel (S/P/Bld) 84 mL/min/1.73m??? Normal >=60 [facility] Comment on above: Order Comment: Speci men Type: BLOOD SPECIMEN [facility] Address: [address] [place] [address] Result Comment: Andree mated Glomerular Filtration Rate (eGFR) is calculated using the 2020 CKD-EPI creatinine equation. This equation utilizes serum creatinine, sex, and age as parameters. The creatinine assay has traceable calibration to isotope dilution-mass spectrometry. Refer to KDIGO guidelines for clinical interpretation. In patients with unstable renal function, e.g. those with acute kidney injury, the eGFR may not accurately reflect actual GFR. Performed By: #### 1 989-3 #### [facility] CLIA [id number] [address] [place] [address] [place] Glucose [Mass/Vol] 100 mg/dL High 74-99 [facility] Comment on above: Order Comment: Anish wing Type: BLOOD SPECIMEN [facility] Address: [address] [place] [address] Result Comment: The [place] Diabetes Association (ADA) provides guidance for cutoff values for fasting glucose and random glucose. The ADA defines fasting as no caloric intake for at least 8 hours. Fasting plasma glucose results between 100 to 125 mg/dL indicate increased risk for diabetes (prediabetes). Fasting plasma glucose results greater than or equal to 126 mg/dL meet the criteria for diagnosis of diabetes. In the absence of unequivocal hyperglycemia, results should be confirmed by repeat testing. In a patient with classic symptoms of hyperglycemia or hyperglycemic crisis, random plasma glucose results greater than or equal to 200 mg/dL meet the criteria for diagnosis of diabetes. Reference: Standards of Medical Care in Diabetes 2016, [place] Diabetes Association. Diabetes Care. 2016.39(Suppl 1). Performed By: #### 1 989-3 #### [facility] CLIA [id number] [address] [place] [address] [place] Potassium [Moles/Vol] 4.2 mmol/L Normal 3.7-5.1 [facility] Comment on above: Order Comment: Anish wing Type: BLOOD SPECIMEN [facility] Address: [address] [place] [address] Performed By: #### 1 989-3 #### [facility] CLIA [id number] [address] [place] [address] [place] Protein [Mass/Vol] 6.5 g/dL Normal 6.3-8.0 [facility] Comment on above: Order Comment: Anish wing Type: BLOOD SPECIMEN [facility] Address: [address] [place] [address] Performed By: #### 1 989-3 #### [facility] CLIA [id number] [address] [place] [address] [place] Sodium [Moles/Vol] 130 mmol/L Low 136-144 [facility] Comment on above: Order Comment: Speci men Type: BLOOD SPECIMEN [facility] Address: [address] [place] [address] Performed By: #### 1 989-3 #### [facility] CLIA [id number] [address] [place] [address] [place] [facility] Urea nitrogen [Mass/Vol] 11 mg/dL Normal 7-21 [facility] Comment on above: Order Comment: Speci men Type: BLOOD SPECIMEN [facility] Address: [address] [place] [address] Performed By: #### 1 989-3 #### [facility] CLIA [id number] [address] [place] [address] [place] DBT Breast - bilateral scree axel 12-17-2024 IMPRESSION: There is no mammographic evidence of malignancy in either breast. Routine screening mammogram is recommended. Annual mammogram will be due in 1 year. BI-RADS Category 1: Negative RISK: Based on the Tyrer-Cuzick (TC) risk assessment model, this patient has a 6.2% lifetime risk of developing breast cancer, meaning they are at average risk for developing breast cancer. However, this is only an estimate based on available history provided on the patient's questionnaire. We encourage all patients to talk with their providers about these results, further recommendations for managing breast health, and appropriate supplemental screening options if the patient has dense breast tissue. Interpreting Radiologist: Ambar Lugo M.D. Electronically signed on: 12/17/2024 Occupational Therapy Technician: ORTEGA Transcrijosh Date/Time: Dec 17 2024 10:51A Dictated by : AMBAR LUGO MD This examination was interpreted and the report reviewed and electronically signed by: AMBAR LUGO MD on Dec 17 2024 1:10PM [facility] DIVISION OF RADIOLOGY * * *Final Report* * * DATE OF EXAM: Dec 17 2024 1:02PM [facility] 0662 - [place] SCREENING W RADHA EX TH -NB / PROCEDURE REASON: Routine general medical examination at a health care facility * * * * Physician Interpretation * * * * RESULT: [place] [id number] #[id number] - [facility] SCREENING W RADHA EX HLTH -NB HISTORY: 64 year-old patient seen for screening and is asymptomatic in both breasts. Patient states no personal history of breast cancer. COMPARISON STUDIES: The present examination has been compared to prior imaging studies dated 10/31/2019 (mammogram) and 08/01/2023 (mammogram). MAMMOGRAM TECHNIQUE: The study was acquired using full field digital technology and interpreted from soft copy. Digital Breast Tomosynthesis (DBT) images were obtained and used to assist in the interpretation of this examination. MAMMOGRAM FINDINGS: There are scattered areas of fibroglandular density. No suspicious masses, calcifications or other abnormalities are seen in either breast. There are no significant interval changes. DIVISION OF RADIOLOGY Provider, [facility] - 12/17/2024 * * *Final Report* * * DATE OF EXAM: Dec 17 2024 1:02PM [facility] 0662 - [place] SCREENING W RADHA EX HLTH -NB / PROCEDURE REASON: Routine general medical examination at a health care facility * * * * Physician Interpretation * * * * RESULT: [place] [id number] #[id number] - [facility] SCREENING W RADHA EX HLTH -NB HISTORY: 64 year-old patient seen for screening and is asymptomatic in both breasts. Patient states no personal history of breast cancer. COMPARISON STUDIES: The present examination has been compared to prior imaging studies dated 10/31/2019 (mammogram) and 08/01/2023 (mammogram). MAMMOGRAM TECHNIQUE: The study was acquired using full field digital technology and interpreted from soft copy. Digital Breast Tomosynthesis (DBT) images were obtained and used to assist in the interpretation of this examination. MAMMOGRAM FINDINGS: There are scattered areas of fibroglandular density. No suspicious masses, calcifications or other abnormalities are seen in either breast. There are no significant interval changes. IMPRESSION IMPRESSION: There is no mammographic evidence of malignancy in either breast. Routine screening mammogram is recommended. Annual mammogram will be due in 1 year. BI-RADS Category 1: Negative RISK: Based on the Tyrer-Cuzick (TC) risk assessment model, this patient has a 6.2% lifetime risk of developing breast cancer, meaning they are at average risk for developing breast cancer. However, this is only an estimate based on available history provided on the patient's questionnaire. We encourage all patients to talk with their providers about these results, further recommendations for managing breast health, and appropriate supplemental screening options if the patient has dense breast tissue. Interpreting Radiologist: Ambar Lugo M.D. Electronically signed on: 12/17/2024 Occupational Therapy Technician: ORTEGA Transcribe Date/Time: Dec 17 2024 10:51A Dictated by : AMBAR LUGO MD This examination was interpreted and the report reviewed and electronically signed by: AMBAR LUGO MD on Dec 17 2024 1:10PM EST [facility] Radiology Study observation (narrative) [facility] DBT Breast - bilateral scree ningOrdered By: Ccf Provider on 12-17-2024 [facility] EX ALB/CREAT RND URon 2024 Albumin DL <= 20 mg/L (U) [Mass/Vol] mg/dL Normal [facility] Comment on above: Order Comment: Speci men Type: BLOOD SPECIMEN [facility] Address: [address] [place] [address] Performed By: #### 1 989-3 #### [facility] CLIA [id number] [address] [place] [address] [place] Albumin/Creatinine (U) [Mass ratio] <19 Normal <30 [facility] Comment on above: Order Comment: Speci men Type: BLOOD SPECIMEN [facility] Address: [address] [place] [address] Result Comment: Adul t Male and Female Nephrotic Criteria: <30 mg/g is considered normal to mildly increased 30-300 mg/g is considered moderately increased >300 mg/g is considered severely increased KDIGO. (2013). KDIGO 2012 Clinical Practice Guideline for the Evaluation and Management of Chronic Kidney Disease. Official Journal of the International Society of Nephrology, 3(1), 1-150. Performed By: #### 1 989-3 #### [facility] CLIA [id number] [address] [place] [address] [place] Creatinine (U) [Mass/Vol] 64.0 mg/dL Normal 20.0-300.0 [facility] Comment on above: Order Comment: Speci men Type: BLOOD SPECIMEN [facility] Address: [address] [place] [address] Performed By: #### 1 989-3 #### [facility] CLIA [id number] [address] [place] [address] [place] EX UA CHEMSTRIPon 12-17-2024 Bilirubin Ql (U) Negative Normal Negative [facility] Comment on above: Order Comment: Speci men Type: URINE SPECIMENOrdering Facility: [facility] Address: [address] [place] [address] Performed By: #### U AEX ####[facility] [id number] [place] [address] [place] Clarity (Unsp spec) Clear Normal Clear [place] Comment on above: Order Comment: Speci men Type: URINE SPECIMENOrdering Facility: [facility] Address: [address] [place] [address] Performed By: #### U AEX ####[facility] [id number] [place] [address] [place] Color (U) Yellow Normal Yellow [facility] Comment on above: Order Comment: Speci men Type: URINE SPECIMENOrdering Facility: [facility] Address: [address] [place] [address] Performed By: #### U AEX ####[facility] [id number] [place] [id number] [place] Glucose Test strip (U) [Mass/Vol] Negative Normal Negative [facility] Comment on above: Order Comment: Speci men Type: URINE SPECIMENOrdering Facility: [facility] Address: [address] [place] [address] Performed By: #### U AEX ####[facility] [id number] [place] [id number] [place] Hemoglobin Ql (U) Negative Normal Negative [facility] Comment on above: Order Comment: Speci men Type: URINE SPECIMENOrdering Facility: [facility] Address: [address] [place] [address] Performed By: #### U AEX ####[facility] [id number] [place] [address] [place] Ketones Ql (U) Negative Normal Negative [facility] Comment on above: Order Comment: Speci men Type: URINE SPECIMENOrdering Facility: [facility] Address: [address] [place] [address] Performed By: #### U AEX ####[facility] [id number] [place] [address] [place] Leukocyte esterase Test strip Ql (U) Negative Normal Negative [facility] Comment on above: Order Comment: Speci men Type: URINE SPECIMENOrdering Facility: [facility] Address: [address] [place] [address] Performed By: #### U AEX ####[facility] [id number] [place] [address] [place] Nitrite Ql (U) Negative Normal Negative [facility] Comment on above: Order Comment: Speci men Type: URINE SPECIMENOrdering Facility: [facility] Address: [address] [place] [address] Performed By: #### U AEX ####[facility] [id number] [place] [id number] [place] pH (U) 7.0 [pH] Normal <8.5 [facility] Comment on above: Order Comment: Speci men Type: URINE SPECIMENOrdering Facility: [facility] Address: [address] [place] [address] Performed By: #### U AEX ####[facility] [id number] [place] [address] [place] Protein (U) [Mass/Vol] Negative Normal Negative [facility] Comment on above: Order Comment: Speci men Type: URINE SPECIMENOrdering Facility: [facility] Address: [address] [place] [address] Performed By: #### U AEX ####[facility] [id number] [place] [address] [place] Specific gravity (U) [Rel density] 1.011 Normal 1.005-1.030 [facility] Comment on above: Order Comment: Speci men Type: URINE SPECIMENOrdering Facility: [facility] Address: [address] [place] [address] Performed By: #### U AEX ####[facility] [id number] [place] [address] [place] Urobilinogen Ql (U) 0.2 EU/dL Normal 0.2-1.0 EU/dL [facility] Comment on above: Order Comment: Speci men Type: URINE SPECIMENOrdering Facility: [facility] Address: [address] [place] [address] Performed By: #### U AEX ####[facility] [id number] [place] [id number] [place] Ferritin SerPl-mCncon 2024 Ferritin [Mass/Vol] 667.0 ng/mL High 14.7-205.1 [facility] Comment on above: Order Comment: Speci men Type: BLOOD SPECIMEN [facility] Address: [address] [place] [address] Performed By: #### 1 989-3 #### [facility] CLIA [id number] [address] [place] [address] [place] GGT SerPl-cCncon 12-17-2024 Gamma glutamyl transferase [Catalytic activity/Vol] 43 U/L Normal 6-46 [facility] Comment on above: Order Comment: Anish wing Type: BLOOD SPECIMEN [facility] Address: [address] [place] [address] Performed By: #### 1 989-3 #### [facility] CLIA [id number] [address] [place] [address] [place] HbA1c (Bld)on 12-17-2024 Average glucose Estimated from glycated hemoglobin (Bld) [Mass/Vol] 120 mg/dL Normal [facility] Comment on above: Order Comment: Anish wing Type: BLOOD SPECIMENOrdering Facility: [facility] Address: [address] [place] [address] Result Comment: eAG: (Estimated average glucose) is a calculated value from HgbA1c and is commissary representative of the average blood glucose level in the last 2-3 month period. Performed By: #### 5 5454-3 ####[facility] [id number] [place] [address] [place] HbA1c (Bld) [Mass fraction] 5.8 % High 4.3-5.6 [facility] Comment on above: Order Comment: Anish wing Type: BLOOD SPECIMENOrdering Facility: [facility] Address: [address] [place] [address] Result Comment: Amer ican Diabetes Association guidelines indicate that patients with HgbA1c in the range 5.7-6.4% are at increased risk for development of diabetes, and intervention by lifestyle modification may be beneficial. HgbA1c greater or equal to 6.5% is considered diagnostic of diabetes. Performed By: #### 5 5454-3 ####[facility] [id number] [place] [address] [place] Iron and Iron binding capaci ty panelon 12-17-2024 Iron [Mass/Vol] 73 ug/dL Normal 41-186 [facility] Comment on above: Order Comment: Speci men Type: BLOOD SPECIMEN [facility] Address: [address] [place] [address] Performed By: #### 1 989-3 #### [facility] CLIA [id number] [address] [place] [address] [place] Iron binding capacity [Mass/Vol] 302 ug/dL Normal 232-386 [facility] Comment on above: Order Comment: Speci men Type: BLOOD SPECIMEN [facility] Address: [address] [place] [address] Performed By: #### 1 989-3 #### [facility] CLIA [id number] [address] [place] [address] [place] Iron/TIBC [Molar ratio] 24.2 % Normal 15.0-57.0 [facility] Comment on above: Order Comment: Speci men Type: BLOOD SPECIMEN [facility] Address: [address] [place] [address] Performed By: #### 1 989-3 #### [facility] CLIA [id number] [address] [place] [address] [place] LPa SerPl-mCncon 12-17-2024 Lipoprotein a [Mass/Vol] 146 mg/dL High <30 [facility] Comment on above: Order Comment: Speci men Type: BLOOD SPECIMEN [facility] Address: [address] [place] [address] Performed By: #### 1 989-3 #### [facility] CLIA [id number] [address] [place] [address] [place] Lipid 1996 panelon Cholesterol [Mass/Vol] 190 mg/dL Normal <200 [facility] Comment on above: Order Comment: Speci men Type: BLOOD SPECIMENOrdering Facility: [facility] Address: [address] [place] [address] Result Comment: <200 mg/dL, Desirable 200-239 mg/dL, Borderline high >239 mg/dL, High Performed By: #### 3 084-1, 3024-7, 60955-0, 3016-3 ####[facility] [id number] [facility] [id number] [address] [place] Cholesterol in HDL [Mass/Vol] 60 mg/dL Normal >39 [facility] Comment on above: Order Comment: Speci men Type: BLOOD SPECIMENOrdering Facility: [facility] Address: [address] [place] [address] Result Comment: 40-5 9 mg/dL, Acceptable >59 mg/dL, High: Negative risk factor for coronary heart disease <40 mg/dL, Low: Positive risk factor for coronary heart disease Performed By: #### 3 084-1, 3024-7, 26756-9, 6-3 ####[facility] [id number] [facility] [id number], [place] [address] [place] Cholesterol in LDL [Mass/Vol] 106 mg/dL High <100 [facility] Comment on above: Order Comment: Anish men Type: BLOOD SPECIMENOrdering Facility: [facility] Address: [address] [place] [address] Result Comment: <100 mg/dL, Optimal 100-129 mg/dL, Near optimal/above optimal 130-159 mg/dL, Borderline high 160-189 mg/dL, High >189 mg/dL, Very high Secondary prevention optimal LDL Cholesterol levels are recommended to be < 70 mg/dL Performed By: #### 3 084-1, 3024-7, 16117-2, 3016-3 ####[facility] [id number] [facility] [id number], [place] [address] [place] Cholesterol in LDL/Cholesterol in HDL [Mass ratio] 1.77 {ratio} Normal <2.54 [facility] Comment on above: Order Comment: Speci men Type: BLOOD SPECIMENOrdering Facility: [facility] Address: [address] [place] [address] Result Comment: Marco mclain: 1. National Cholesterol Education Program ATP III Guideline At-A-Glance Quick Desk Reference: National Heart, Lung, and Blood Hart[place]. National Institutes of Health. 2001: NIH Publication No. 01-3305. 2. An International Atherosclerosis Society position paper: global recommendations for the management of dyslipidemia: executive summary, Atherosclerosis. 2014: 232(2):410-413. Performed By: #### 3 084-1, 3024-7, 30841-7, 6-3 ####[facility] [id number] [address] [address] [place] Cholesterol in VLDL [Mass/Vol] 24 mg/dL Normal <30 [facility] Comment on above: Order Comment: Speci men Type: BLOOD SPECIMENOrdering Facility: [facility] Address: [address] [place] [address] Performed By: #### 3 084-1, 3023-7, 44877-3, 6-3 ####[facility] [id number] [address] [address] [place] Cholesterol non HDL [Mass/Vol] 130 mg/dL High <130 [facility] Comment on above: Order Comment: Speci men Type: BLOOD SPECIMENOrdering Facility: [facility] Address: [address] [place] [address] Result Comment: <130 mg/dL, Optimal 130-159 mg/dL, Near optimal/above optimal 160-189 mg/dL, Borderline high 190-219 mg/dL, High >219 mg/dL, Very high Secondary prevention optimal non HDL Cholesterol levels are recommended to be <100 mg/dL Performed By: #### 3 084-1, 3024-7, 88418-4, 3016-3 ####[facility] [id number] [address] [place] [address] [place] Cholesterol.total/Ch olesterol in HDL [Mass ratio] 3.17 {ratio} Normal <5.10 [facility] Comment on above: Order Comment: Speci men Type: BLOOD SPECIMENOrdering Facility: [facility] Address: [address] [place] [address] Performed By: #### 3 084-1, 3024-7, 12128-7, 3016-3 ####[facility] [id number] [place] [address] [place] FASTING TIME 12 hrs Normal [facility] Comment on above: Order Comment: Speci men Type: BLOOD SPECIMENOrdering Facility: [facility] Address: [address] [place] [address] Performed By: #### 3 084-1, 3024-7, 87786-8, 3016-3 ####[facility] [id number] [place] [address] [place] Triglyceride [Mass/Vol] 120 mg/dL Normal <150 [facility] Comment on above: Order Comment: Speci men Type: BLOOD SPECIMENOrdering Facility: [facility] Address: [address] [place] [address] Result Comment: <150 mg/dL, Normal 150-199 mg/dL, Borderline high 200-499 mg/dL, High >499 mg/dL, Very high Performed By: #### 3 084-1, 3024-7, 26529-1, 3016-3 ####[facility] [id number] [place] [id number] [place] KATE SCREENING W RADHA EX HLTH -NBon 12-17-2024 KATE SCREENING W RADHA EX HLTH -NB * * *Final Report* * * DATE OF EXAM: Dec 17 2024 1:02PM [facility] - KATE SCREENING W RADHA EX HLTH -NB / PROCEDURE REASON: Routine general medical examination at a health care facility * * * * Physician Interpretation * * * * RESULT: [facility] [address] [place] [address] [address] [place] [address] #[id number] - [facility] SCREENING W RADHA EX HLTH -NB HISTORY: 64 year-old patient seen for screening and is asymptomatic in both breasts. Patient states no personal history of breast cancer. COMPARISON STUDIES: The present examination has been compared to prior imaging studies dated 10/31/2019 (mammogram) and 08/01/2023 (mammogram). MAMMOGRAM TECHNIQUE: The study was acquired using full field digital technology and interpreted from soft copy. Digital Breast Tomosynthesis (DBT) images were obtained and used to assist in the interpretation of this examination. MAMMOGRAM FINDINGS: There are scattered areas of fibroglandular density. No suspicious masses, calcifications or other abnormalities are seen in either breast. There are no significant interval changes. IMPRESSION: There is no mammographic evidence of malignancy in either breast. Routine screening mammogram is recommended. Annual mammogram will be due in 1 year. BI-RADS Category 1: Negative RISK: Based on the Tyrer-Cuzick (TC) risk assessment model, this patient has a 6.2% lifetime risk of developing breast cancer, meaning they are at average risk for developing breast cancer. However, this is only an estimate based on available history provided on the patient's questionnaire. We encourage all patients to talk with their providers about these results, further recommendations for managing breast health, and appropriate supplemental screening options if the patient has dense breast tissue. Interpreting Radiologist: Ambar Lugo M.D. Electronically signed on: 12/17/2024 Occupational Therapy Technician: ORTEGA Transcribe Date/Time: Dec 17 2024 10:51A Dictated by : AMBAR LUGO MD This examination was interpreted and the report reviewed and electronically signed by: AMBAR LUGO MD on Dec 17 2024 1:10PM EST [id number] Normal [facility] T4 Free SerPl-mCncon 025 Free T4 [Mass/Vol] 1.7 ng/dL Normal 0.9-1.7 [facility] Comment on above: Order Comment: Speci men Type: BLOOD SPECIMENOrdering Facility: [facility] Address: [address] [place] [address] Performed By: #### 3 084-1, 3024-7, 98921-4, 3016-3 ####[facility] [id number] [place] [id number] [place] TSH SerPl-aCncon 12-17-2024 TSH Qn 1.780 m[IU]/L Normal 0.270-4.200 [facility] Comment on above: Order Comment: Speci men Type: BLOOD SPECIMENOrdering Facility: [facility] Address: [address] [place] [address] Performed By: #### 3 084-1, 3024-7, 61232-4, 3016-3 ####[facility]IA [id number] [address] [place] Urate SerPl-mCncon Urate [Mass/Vol] 6.3 mg/dL Normal 2.5-6.6 [facility] Comment on above: Order Comment: Speci men Type: BLOOD SPECIMENOrdering Facility: [facility] Address: [address] [place] [address] Performed By: #### 3 084-1, 3024-7, 57168-4, 3016-3 ####[facility] [id number] [address] [place] VASCULAR SCREENING TESTon VASCULAR SCREENING TEST Non-Invasive Vascular Laboratory [facility] A17 Vascular Screening Bilateral/Complete Date of service/time: 12/17/2024 8:42:06 AM Name: MRS. JOSH HUFFMAN Date of : 1960 Age: 64 years Gender: F Clinical Indication Screening for peripheral vascular disease. Cardiovascular Risk Factors --- History of hyperlipidemia: No History of hypertension: Yes History of diabetes mellitus: No History of cigarettes smoking (> 100 cigarettes in the lifetime): Yes Known coronary artery disease: No Post menopausal woman: Yes Family history of premature coronary artery disease: Yes FINDINGS -------- CAROTID Family history of stroke: No Patient has had a stroke or TIA: Yes Patient is known to have stenosis of one of the carotid arteries: No Patient is known to have a blockage of one of the carotid arteries: No Right common carotid artery distal: PSV: 56 cm/s. EDV: 16 cm/s. Mild plaque present. Right internal carotid artery origin: PSV: 73 cm/s. EDV: 17 cm/s. Mild plaque present. Right internal carotid artery proximal: PSV: 59 cm/s. EDV: 17 cm/s. No plaque seen. Right external carotid artery origin: PSV: 100 cm/s. EDV: 20 cm/s. No plaque seen. Left common carotid artery distal: PSV: 65 cm/s. EDV: 22 cm/s. No plaque seen. Left internal carotid artery origin: PSV: 72 cm/s. EDV: 15 cm/s. Mild plaque present. Left internal carotid artery proximal: PSV: 82 cm/s. EDV: 27 cm/s. No plaque seen. Left external carotid artery origin: PSV: 85 cm/s. EDV: 21 cm/s. No plaque seen. AORTA Family history of abdominal aortic aneurysm: No Patient is known to have an abdominal aortic aneurysm: No History of cigarettes smoking (> 100 cigarettes in the lifetime): Yes Aorta proximal: 2.36 cm x 2.36 cm No plaque seen. Aorta at renals: PSV: 87 cm/s. EDV: 17 cm/s. No plaque seen. Aorta mid: Plaque present. ANKLE BRACHIAL INDEX (JATIN) Known peripheral artery disease: No Open wounds on the legs: No Pain in calves, thighs, or buttocks when walking that resolves with rest: No Right Pressures Brachial: 158 mmHg Ankle dorsalis pedis: 178 mmHg JATIN: 1.13 Ankle posterior tibial: 166 mmHg JATIN: 1.05 Left Pressures Brachial: 154 mmHg Ankle dorsalis pedis: 180 mmHg JATIN: 1.14 Ankle posterior tibial: 180 mmHg JATIN: 1.14 IMPRESSION Compared to prior study of 10/31/2019, mild plaque noted in bilateral cartoid arteries on today's exam, otherwise no other change. Follow up with your physician regarding the results of the study is advised. CAROTID Right carotid: Atherosclerotic plaque is visualized in at least one of the arteries evaluated (see above); however, there is no significant stenosis of the internal carotid artery. Left carotid: Atherosclerotic plaque is visualized in at least one of the arteries evaluated (see above); however, there is no significant stenosis of the internal carotid artery. AORTA No evidence of abdominal aortic aneurysm. Atherosclerotic plaque is visualized in the abdominal aorta. ANKLE BRACHIAL INDEX (JATIN) Right ankle brachial index: 1.13 Normal ankle brachial index at rest in the right leg. Left ankle brachial index: 1.14 Normal ankle brachial index at rest in the left leg. Technologist: Alda Colby RVT Ordering physician: DAVID HULL Interpreting physician: Jose Pratt MD, RPVI Final CC [employer] [facility] : [id number] D See Link below for Image Normal [facility] Vit B12 SerPl-mCncon 025 Cobalamin (Vitamin B12) [Mass/Vol] 1009 pg/mL Normal 232-1245 [facility] Comment on above: Order Comment: Speci men Type: BLOOD SPECIMEN [facility] Address: [address] [place] [address] Performed By: #### 1 989-3 #### [facility] CLIA [id number] [address] [place] [address] [place] Juan Pablo 11-18-2024 CNPN Telephone (EXEPMN) -------- JOSH HUFFMAN ([id number]) 1960 F Date Time Provider Department 11/18/24 DAVID HULL EXEPMN During your visit today, we recorded the following information about you: Tyrese Pandey RN 11/18/2024 3:51 PM Signed Previsit call completed. confirmed. Reviewed department guidelines/changes with pt in regard to covid 19-pt verbalized understanding. Additional consults: None Q: will email Dr Hull per Dr Partida's 2022 letter I recommend you have another CT angiogram of the chest in 1-2 years to monitor the diameter of the ascending aorta. Do you want to order one? Tyrese Pandey RN 11/19/2024 7:40 AM Signed David Hull MD You; A11 Nurse Phone15 hours ago (4:19 PM) She has a calcium score scheduled. This will give me a measurement of her ascending aorta. Therefore a CTA is not necessary. Allergies As of Date: 11/18/2024 (No Known Allergies) Date Reviewed: 06/24/2024 Reviewed by: Avi Dobbins MD - Fully Assessed Reason for Visit: Nurse Triage Call [185] Cmt: [facility] 12/17 Prescriptions as of 11/19/2024 - celecoxib (CELEBREX) 200 mg capsule TAKE 1 CAPSULE BY MOUTH TWICE A DAY - levothyroxine (SYNTHROID) 100 mcg tablet Take 1 tablet by mouth two times a week. Mon AND Monday - levothyroxine (SYNTHROID) 112 mcg tablet Take 1 tablet by mouth five times a week. Monday-Monday - cyanocobalamin, vitamin B-12, (VITAMIN B-12 ORAL) Take 500 mcg by mouth once daily. - cholecalciferol, vitamin D3, (VITAMIN D3 ORAL) Take 2,000 Units by mouth once daily. - psyllium husk (METAMUCIL ORAL) Take 5.8 g by mouth once daily. - diclofenac (VOLTAREN) 1 % topical gel Apply 2 g to affected area four times daily. - aspirin, enteric coated (ECOTRIN LOW STRENGTH) 81 mg EC tablet Take 1 tablet by mouth once daily. - KELP ORAL Take 325 mcg by mouth daily at bedtime. iodine supplement - MILK THISTLE ORAL Take 1,000 mg by mouth once daily. Includes Dandelion root 50mg - lisinopril-hydrochloroth iazide 10-12.5 mg per tablet Take 1 tablet by mouth every morning. - metoprolol succinate XL, long acting, (TOPROL XL) 100 mg Tb24 Take 100 mg by mouth daily at bedtime. 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] 10/31/2019 Vitamin D deficiency [E55.9] 10/31/2019 Elevated uric acid in blood [E79.0] 10/31/2019 Bilateral hip bursitis [M70.71, M70.72] 11/2021 Obesity, Class I, BMI 30-34.9 [E66.811] 08/01/2023 Abnormal EKG during exercise stress test [R94.3*08/01/2023 Encounter Status:Closed by TYRESE PANDEY on 11/19/24 Normal [facility] CRPon 10-21-2024 C-REACTIVE PROT 3.19 mg/L High 0.0-3.0 [facility] Comment on above: Result Comment: C-Re active Protein (CRP) provides useful information for the diagnosis, therapy and monitoring of inflammatory processes and associated diseases. For the evaluation of Relative Risk for Cardiovascular Disease, a High Sensitivity CRP (HSCRP) should be ordered. Performed By: #### L 501.6710, L101.9900 #### [facility] [place], [address] Erythrocyte Sed Rateon 10-21 SED RATE 5 mm/hr Normal 0-30 [facility] Comment on above: Performed By: #### L 501.6710, L101.9900 #### [facility] [address] [place], [address] Internal Medicine Office Vis iton 10-21-2024 Internal Medicine Office Visit [facility] [address] [place] [address] [place] [address] OFFICE VISIT Date of Service: 10/21/24 MR#: [id number] Acct: [id number] Name: JOSH HUFFMAN Rep #: [id number] : 1960 Provider: Dr. Chester lockett MD Age/Sex: 64/F Location: [facility] Status: Signed Intake Vital Signs 10/21/24 10:59 Weight: 223 lb BP 122/72 H Blood Pressure Location Lt brachial Position Sitting Respiration 16 Pulse 63 Pulse Source Monitor Temp 97.2 F L Temp Source Temporal Pulse Oximetry (%) 99 Oxygen Delivery Method room air Intake Visit Reasons: SEVERE HEADACHE Chief Complaint: severe head ache Group Sales Coordinator Required: No Accompanied by: Self Is patient in pain?: No Allergies No Known Allergies Allergy (Unverified 10/21/24 10:55) Medications ???Medication ???Instructions ???Recorded ???Confirmed ???Type Vit D 2000 PO 03/15/24 10/21/24 History aspirin 81 mg tablet,delayed 81 mg PO DAILY 03/15/24 10/21/24 History release cyanocobalamin (vitamin B-12) 500 250 mcg PO DAILY 03/15/24 10/21/24 History mcg tablet diclofenac sodium 1 % topical gel 2 g topical ONCE 03/15/24 10/21/24 History (Voltaren Arthritis Pain) kelp oral 325 mcg PO 03/15/24 10/21/24 History milk thistle 1,000 mg PO 03/15/24 10/21/24 History psyllium husk (aspartame) 3.4 ea PO DAILY 03/15/24 10/21/24 History gram/5.8 gram oral powder (Metamucil [facility] Fiber) levothyroxine 100 mcg tablet 100 mcg PO .twice week #90 tabs 08/28/24 01/06/25 Rx levothyroxine 112 mcg tablet 112 mcg PO .five times weekly #180 06/12/24 10/21/24 Rx tabs metoprolol succinate 100 mg 100 mg PO DAILY #90 tabs 08/05/24 10/21/24 Rx tablet,extended release 24 hr (Toprol XL) celecoxib 200 mg capsule mg PO BID 09/18/24 10/21/24 History lisinopril 10 1 tab PO DAILY #90 tabs 09/18/24 10/21/24 Rx mg-hydrochlorothiazide 12.5 mg tablet (Zestoretic) Have you fallen in the past year?: No [facility] Medical History (Updated 10/21/24 @ 12:[address] Chester Valentine MD) Neck pain Headache History of COVID-19 Health care maintenance Hyperlipidemia Hypertension Hypothyroidism Encounter for vitamin deficiency screening Plantar fasciitis of right foot Residual atrial septal defect following repair Wrist fracture High cholesterol Heart disease Gall stones Cataracts, bilateral Arthritis Allergies Bone fracture Surgical History H/O arthroscopy of right knee History of open heart surgery Status post left foot surgery Hx of tonsillectomy H/O splenectomy Family History Brother Alcoholism Throat cancer, Onset Age: 60 Mother Psoriatic arthritis Myocardial infarction Hypertension Skin cancer Lung cancer, Onset Age: 92 Heart disease, Onset Age: 65 Brother No problems noted. Sister Melanoma Father Hypertension Social History adopted: No household members: spouse current occupational status: employed history of recent travel: No Smoking Status: Former smoker Smokeless tobacco user: other alcohol intake: current details: scotts- 6 shots weekly what type of physical activity do you participate in: walking and swimming frequency: 3-4 times per week seatbelt use: always do you feel safe at home: Yes HPI HPI Chief Complaint: severe head ache Details: JOSH HUFFMAN, is a 64 F who presents to the office today for an acute visit. She reports a left-sided headache which started about 8 days ago. Headache is constant. No known precipitating, aggravating or significantly relieving factor. No nausea, blurry vision, dizziness, nausea, vomiting or otherwise feeling of unwell. Has also noted worsening neck pain. No change in bowel or bladder habit. ROS Const Constitutional: Positive for headache(s); No body ache, chills, excessive sweating, fatigue, fever(s), frequent falls, snoring, weakness or change in appetite Eyes Eyes: No blurry vision, change in vision, bulging eyes, floaters, eye pain or Light sensitivity ENT ENT: Positive for headache(s) and neck pain; No abnormal hearing, ear or mastoid pain, tinnitus, balance problems, nosebleed/epistaxis, nasal congestion or sore throat Resp Respiratory: No cough, excessive phlegm production, pain on inspiration, shortness of breath, snoring or wheezing Cardio Cardiology: No chest pain at rest, chest pain with exertion, excessive sweating, dyspnea on exertion, lightheadedness, orthopnea or palpitations Gastro GI: No abdominal pain, change in bowel habits, constipation, cramping, diarrhea, nausea/dyspepsia or vomiting Genitourinary-Female: No burning urination, painful urination, urinary incontinence or ur (more content not included)... Normal [facility] Internal Medicine Office Vis itoaris 09-18-2024 Internal Medicine Office Visit [facility] [address] [place] [address] [place] [address] OFFICE VISIT Date of Service: 09/18/24 MR#: [id number] Acct: [id number] Name: JOSH HUFFMAN Rep #: [id number] : 1960 Provider: Dr. Chester lockett MD Age/Sex: 64/F Location: [facility] Status: Signed Intake Vital Signs 09/18/24 10:51 Weight: 220 lb BP 128/80 H Blood Pressure Location Lt brachial Position Sitting Respiration 16 Pulse 67 Pulse Source Monitor Temp 97.0 F L Temp Source Temporal Pulse Oximetry (%) 98 Oxygen Delivery Method room air Intake Visit Reasons: 6 M FU Chief Complaint: 6m f/u Group Sales Coordinator Required: No Accompanied by: Self Is patient in pain?: No Allergies No Known Allergies Allergy (Unverified 09/18/24 10:51) Medications ???Medication ???Instructions ???Recorded ???Confirmed ???Type Vit D 1999 PO 03/15/24 09/18/24 History aspirin 81 mg tablet,delayed 81 mg PO DAILY 03/15/24 09/18/24 History release cyanocobalamin (vitamin B-12) 500 250 mcg PO DAILY 03/15/24 09/18/24 History mcg tablet diclofenac sodium 1 % topical gel 2 g topical ONCE 03/15/24 09/18/24 History (Voltaren Arthritis Pain) kelp oral 325 mcg PO 03/15/24 09/18/24 History milk thistle 1,000 mg PO 03/15/24 09/18/24 History psyllium husk (aspartame) 3.4 ea PO DAILY 03/15/24 09/18/24 History gram/5.8 gram oral powder (Metamucil [facility] Fiber) levothyroxine 100 mcg tablet 100 mcg PO .twice week #90 tabs 06/12/24 09/18/24 Rx levothyroxine 112 mcg tablet 112 mcg PO .five times weekly #180 06/12/24 09/18/24 Rx tabs metoprolol succinate 100 mg 100 mg PO DAILY #90 tabs 08/05/24 09/18/24 Rx tablet,extended release 24 hr (Toprol XL) celecoxib 200 mg capsule mg PO BID 09/18/24 09/18/24 History lisinopril 10 1 tab PO DAILY #90 tabs 09/18/24 09/18/24 Rx mg-hydrochlorothiazide 12.5 mg tablet (Zestoretic) Have you fallen in the past year?: No PFSH Medical History (Updated 09/18/24 @ 11:[address] Chester Valentine MD) History of COVID-19 Health care maintenance Hyperlipidemia Hypertension Hypothyroidism Encounter for vitamin deficiency screening Plantar fasciitis of right foot Residual atrial septal defect following repair Wrist fracture High cholesterol Heart disease Gall stones Cataracts, bilateral Arthritis Allergies Bone fracture Surgical History H/O arthroscopy of right knee History of open heart surgery Status post left foot surgery Hx of tonsillectomy H/O splenectomy Family History Brother Alcoholism Throat cancer, Onset Age: 60 Mother Psoriatic arthritis Myocardial infarction Hypertension Skin cancer Lung cancer, Onset Age: 92 Heart disease, Onset Age: 65 Brother No problems noted. Sister Melanoma Father Hypertension Social History adopted: No household members: spouse current occupational status: employed history of recent travel: No Smoking Status: Former smoker Smokeless tobacco user: other alcohol intake: current details: scotts- 6 shots weekly what type of physical activity do you participate in: walking and swimming frequency: 3-4 times per week seatbelt use: always do you feel safe at home: Yes HPI HPI Chief Complaint: 6m f/u Details: JOSH HUFFMAN, is a 64 F who presents to the office today for follow-up of her chronic conditions. No acute concerns at this time. Status post COVID at the end of June following a trip to [place]. For the most part, back to her baseline. Sense of taste and smell are slowly improving. History of hypertension, blood pressure today at 128/80. Similar reading at last check at home. Currently on lisinopril hydrochlorothiazide which she is taking as prescribed. Follows up with Ortho and following an injury to her right knee, she was started on celecoxib 200 mg twice daily. Has found it remarkably helpful for her pain. Recent labs reviewed, stable renal function. No dark or bloody stool reported. Other chronic medical conditions are stable. ROS Const Constitutional: No body ache, chills, excessive sweating, fatigue, fever(s), frequent falls, headache(s), snoring, weakness or change in appetite Eyes Eyes: No blurry vision, change in vision, dry eyes, floaters, visual disturbances, eye pain or Light sensitivity ENT ENT: No abnormal hearing, ear or mastoid pain, tinnitus, balance problems, nosebleed/epistaxis, nasal congestion, headache(s), neck pain or sore throat Resp Respiratory: No cough, excessive phlegm production, pain on inspiration, shortness of breath, snoring or wheezing Cardio Cardiology: No chest pain at rest, chest pain with exertion, ex (more content not included)... Normal [facility] Basic Metabolic Profile (BMP )on 09-16-2024 BUN/CRE 16.9 RATIO Normal - [facility] Comment on above: Performed By: #### L 500.2500, L501.4120, L506.1000 #### [facility] [address] [place], [address] CA,Total 9.6 mg/dL Normal 8.5-10.1 [facility] Comment on above: Performed By: #### L 500.2500, L501.9520, L506.1000 #### [facility] [address] [place], [address] Chloride [Moles/Vol] 99 mmol/L Normal 98-107 [facility] Comment on above: Performed By: #### L 500.2500, L501.9520, L506.1000 #### [facility] [address] [place], [address] CO2 [Moles/Vol] 29.0 mmol/L Normal 21.0-32.0 [facility] Comment on above: Performed By: #### L 500.2500, L501.9520, L506.1000 #### [facility] [address] [place], [address] Creatinine [Mass/Vol] 0.77 mg/dL Normal 0.55-1.02 [facility] Comment on above: Result Comment: The validity of the calculated GFR GFRAA in patients over 70 years has not been determined. Clinical correlation is essential. Performed By: #### L 500.2500, L501.9520, L506.1000 #### [facility] [address] [place], [address] EST GFR - AA 96 mL/min Normal >60 [facility] Comment on above: Result Comment: Afri can Tanzanian GFR Calc Performed By: #### L 500.2500, L501.9520, L506.1000 #### [facility] [address] [place], [address] GAP 5 Normal 5-15 [facility] Comment on above: Performed By: #### L 500.2500, L501.9520, L506.1000 #### [facility] [address] [place], [address] GFR/1.73 sq M.predicted among non-blacks MDRD (S/P/Bld) [Vol rate/Area] 80 mL/min/{1.73_m2} Normal >60 [facility] Comment on above: Result Comment: Non- GFR Calc Performed By: #### L 500.2500, L501.9520, L506.1000 #### [facility] [address] [place], [address] Glucose [Mass/Vol] 86 mg/dL Normal 74-106 [facility] Comment on above: Performed By: #### L 500.2500, L501.9520, L506.1000 #### [facility] [address] [place], [address] Potassium [Moles/Vol] 3.9 mmol/L Normal 3.5-5.1 [facility] Comment on above: Performed By: #### L 500.2500, L501.9520, L506.1000 #### [facility] [address] [place], [address] Sodium [Moles/Vol] 133 mmol/L Low 136-145 [facility] Comment on above: Performed By: #### L 500.2500, L501.9520, L506.1000 #### [facility] [address] [place], [address] Urea nitrogen [Mass/Vol] 13 mg/dL Normal 7-18 [facility] Comment on above: Performed By: #### L 500.2500, L501.9520, L506.1000 #### [facility] [address] [place], [address] Thyroid Stim Hormone (TSH)on 09-16-2024 TSH 1.100 uIU/mL Normal 0.358-3.740 [facility] Comment on above: Performed By: #### L 500.2500, L501.9520, L506.1000 #### [facility] [address] [place], [address] Vitamin D,25 Hydroxyon 09-16 Vitamin D 25-OH 79.9 ng/mL Normal [facility] Comment on above: Result Comment: Nelda min D 25(OH) Status Range Deficiency <20 ng/mL (50nmol/L) Insufficiency 20 - 30 ng/mL (50 - 75 nmol/L) Sufficiency 30 - 100 ng/mL (75 - 250 nmol/L) Toxicity >100 ng/mL (>250 nmol/L) Performed By: #### L 500.2500, L501.9520, L506.1000 #### [facility] [address] [place], [address] CNOVon 06-24-2024 CNOV Office Visit (AMBIKAWS ) -------- JOSH HUFFMAN ([id number]) 1960 F Date Time Provider Department 06/24/24 10:15 AM AVI DOBBINS During your visit today, we recorded the following information about you: Avi Dobbins MD 06/24/2024 11:11 AM Signed Avi Dobbins MD Department of Orthopaedics Orthopaedics [address] [facility] [address] Dept: [phone] Dept June 24, 2024 CHIEF COMPLAINT: Follow Up of the Right Knee and 3 weeks post visit right knee pain (Here for cortisone injection) HPI Patient states her pain is better since she has been taking the Celebrex. She is leaving on Monday for [place] and will need a refill before she leaves. Patient here for cortisone injection right knee. ASSESSMENT: M25.561 Acute pain of right knee (primary encounter diagnosis) M17.11 Primary osteoarthritis of right knee PLAN: Cortisone injection today as previously discussed OBJECTIVE: Ms. Josh Huffman is a pleasant 64 year old in no apparent distress. Gen:There were no vitals taken for this visit. Large Joint Arthro/Inj: R knee joint Informed Consent Consent Obtained: Verbal [employer] Protocol A moment to CARE was completed. SIGN IN Personnel directly involved with the procedure wore the appropriate PPE. Special Equipment: N/A Patient/Surrogate Stated/Verified: Patient name, Date of , Relevant allergies and Intended procedure TIME OUT Intended patient and procedure match the source document(s). Consent documented and matches the intended procedure. Relevant labs, photos, and/or imaging studies have been reviewed. Correct side/site marked and visible. Medications required for procedure verified. No fire risk assessment and interventions applicable. No implant(s) inserted. 06/24/2024 11:04 AM The procedure site was prepped in the usual sterile fashion. Site: R knee joint Medications: 40 mg triamcinolone acetonide 40 mg/mL Anesthetics: 4 mL lidocaine (PF) 10 mg/mL (1 %) Outcome: Tolerated well, no immediate complications Post-injection instructions were reviewed with the patient and the patient voiced understanding of these instructions. SIGN OUT No specimen collected. No instruments, equipment or retained foreign bodies applicable. Post-procedure follow-up management communicated and Plan of Care Visit completed when applicable Supporting Subjective Information Below: Past Surgical History: PAST SURGICAL HISTORY 02/07/2024: ARTHRS KNE SURG W/MENISCECTOMY MED/LAT W/SHVG; Right Comment: right knee, arthroscopic medial meniscectomy, lateral and patellofemoral chondroplasties 07/23/2012: COLONOSCOPY Comment: hemorrhoids, diverticulosis, advised 10-year follow-up 1988: HEART SURGERY HX Comment: at [facility], atrial septal defect repair 2002: LASIK; Right Comment: Right 2018: PAST SURGICAL HISTORY OF Comment: laser surg, greater and lesser saphenous veins, bilateral 1969: REMOVAL OF SPLEEN TOTAL Comment: traumatic No date: SKIN BIOPSY HX Comment: benign 2013: TOE SURGERY HX Comment: tendon repairs due to step into groundhog hole, second surgery same year due to atrophic changes 1976: TONSILLECTOMY HX 12/25/2020: US GUIDED PLANTAR FASCIOTOMY; Right Comment: Right Medications: Current Outpatient Medications Medication Sig celecoxib (CELEBREX) 200 mg capsule Take 1 capsule by mouth two times a day. levothyroxine (SYNTHROID) 100 mcg tablet Take 1 tablet by mouth two times a week. Mon AND Monday levothyroxine (SYNTHROID) 112 mcg tablet Take 1 tablet by mouth five times a week. Monday-Monday cyanocobalamin, vitamin B-12, (VITAMIN B-12 ORAL) Take 500 mcg by mouth once daily. cholecalciferol, vitamin [...] mouth once daily. Includes Dandelion root 50mg lisinopril-hydrochloroth iazide 10-12.5 mg per tablet Take 1 tablet by mouth every morning. metoprolol succinate XL, long acting, (TOPROL XL) 100 mg Tb24 Take 100 mg by mouth daily at bedtime. No current facility-administered medications for this visit. Allergies: Patient has no known allergies. ROS: General (negative for fatigue, malaise, weight loss/gain) HEENT (negative for headache, earache, recent vision changes, sinus pain, sore throat) Respiratory (no recent shortness of breath, hemoptysis) CV (negative for chest tightness, palpitations) Musculoskeletal (see HPI) Psych (no depression, anxiety) Avi Dobbins MD Referring Provider: AVI DOBBINS [[id number] (more content not included)... Normal [facility] Large Joint Arthro/Inj: R kn ee jointon 06-24-2024 Avi Dobbins MD 06/24/2024 11:11 AM Large Joint Arthro/Inj: R knee joint Informed Consent Consent Obtained: Verbal [employer] Protocol A moment to CARE was completed. SIGN IN Personnel directly involved with the procedure wore the appropriate PPE. Special Equipment: N/A Patient/Surrogate Stated/Verified: Patient name, Date of , Relevant allergies and Intended procedure TIME OUT Intended patient and procedure match the source document(s). Consent documented and matches the intended procedure. Relevant labs, photos, and/or imaging studies have been reviewed. Correct side/site marked and visible. Medications required for procedure verified. No fire risk assessment and interventions applicable. No implant(s) inserted. 06/24/2024 11:04 AM The procedure site was prepped in the usual sterile fashion. Site: R knee joint Medications: 40 mg triamcinolone acetonide 40 mg/mL Anesthetics: 4 mL lidocaine (PF) 10 mg/mL (1 %) Outcome: Tolerated well, no immediate complications Post-injection instructions were reviewed with the patient and the patient voiced understanding of these instructions. SIGN OUT No specimen collected. No instruments, equipment or retained foreign bodies applicable. Post-procedure follow-up management communicated and Plan of Care Visit completed when applicable [facility] CNOVon 06-03-2024 CNOV Office Visit (ORTHWS ) -------- JOSH HUFFMAN ([id number]) 1960 F Date Time Provider Department 06/03/24 12:45 PM AVI DOBBINS During your visit today, we recorded the following information about you: Avi Dobbins MD 06/03/2024 1:54 PM Signed Avi Dobbins MD Department of Orthopaedics Orthopaedics [address] [facility] [address] Dept: [phone] Dept June 03, 2024 CHIEF COMPLAINT: Established Patient of the Right Knee and 16 weeks 5 days post op right knee arthroscopy HPI Patient here for follow up right knee pain. Patient states on 05/25 she was playing hide and seek with 3 grand daughters and one of the girls was under her legs and she felt a pop in her right knee. She is having pain inside her knee again before her surgery. Taking 2 Aleve in the morning for the pain and helps her get ready in the mornings for work. She is back to walking up and down the steps one at time. She is leaving for [place] 2 weeks ago and will be doing some hiking. ASSESSMENT: M25.561 Acute pain of right knee (primary encounter diagnosis) PLAN: She does [place] tweaked the knee while playing with her grandchildren. Will try some strengthening and an anti-inflammatory for a few weeks. If she continues to have some troubles, would recommend a cortisone injection before her [employer] [place] trip. We can see her back on the ninth before her trip. OBJECTIVE: Ms. Josh Huffman is a pleasant 64 year old in no apparent distress. Gen:There were no vitals taken for this visit. nl development, non obese, no deformities ENT: Normocephalic, normal hearing, moist mucosa CV: Pulses:DP/PT= 2+ and symmetric, capillary refill < 2 secs, no peripheral edema/varicosities Skin: no rash, bruising or lesions. Good turgor. Psych: cooperative and appropriate, alert and oriented x 3, good mood and affect. Musculoskeletal: Patient walks with some mild antalgia. Scant effusion but not significant. Mild tenderness on the medial joint line but good range of motion overall with the knee. Imaging: Deferred today. Supporting Subjective Information Below: Past Surgical History: PAST SURGICAL HISTORY 02/07/2024: ARTHRS KNE SURG W/MENISCECTOMY MED/LAT W/SHVG; Right Comment: right knee, arthroscopic medial meniscectomy, lateral and patellofemoral chondroplasties 07/23/2012: COLONOSCOPY Comment: hemorrhoids, diverticulosis, advised 10-year follow-up 1988: HEART SURGERY HX Comment: at [facility], atrial septal defect repair 2002: SASKIA; Right Comment: Right 2018: PAST SURGICAL HISTORY OF Comment: laser surg, greater and lesser saphenous veins, bilateral 1969: REMOVAL OF SPLEEN TOTAL Comment: traumatic No date: SKIN BIOPSY HX Comment: benign 2013: TOE SURGERY HX Comment: tendon repairs due to step into groundhog hole, second surgery same year due to atrophic changes 1975: TONSILLECTOMY HX 12/25/2020: US GUIDED PLANTAR FASCIOTOMY; Right Comment: Right Medications: Current Outpatient Medications Medication Sig levothyroxine (SYNTHROID) 100 mcg tablet Take 1 tablet by mouth two times a week. Mon AND Monday levothyroxine (SYNTHROID) 112 mcg tablet Take 1 tablet by mouth five times a week. Monday-Monday cyanocobalamin, vitamin B-12, (VITAMIN B-12 ORAL) Take 500 mcg by mouth once daily. cholecalciferol, vitamin [...] mouth once daily. Includes Dandelion root 50mg lisinopril-hydrochloroth iazide 10-12.5 mg per tablet Take 1 tablet by mouth every morning. metoprolol succinate XL, long acting, (TOPROL XL) 100 mg Tb24 Take 100 mg by mouth daily at bedtime. No current facility-administered medications for this visit. Allergies: Patient has no known allergies. ROS: General (negative for fatigue, malaise, weight loss/gain) HEENT (negative for headache, earache, recent vision changes, sinus pain, sore throat) Respiratory (no recent shortness of breath, hemoptysis) CV (negative for chest tightness, palpitations) Musculoskeletal (see HPI) Psych (no depression, anxiety) Avi Dobbins MD Allergies As of Date: 06/03/2024 (No Known Allergies) Date Reviewed: 06/03/2024 Reviewed by: Avi Dobbins MD - Fully Assessed Reason for Visit: Established Patient [175] 16 weeks 5 days post op right knee arthroscopy [Other] Primary Visit Diagnosis:Acute pain of right knee [M25.561] Order(s):celecoxib (CELEBREX) 200 mg capsuleTake 1 capsule by mouth two times a day.Disp: 60 capsule (more content not included)... Normal [facility] CNOVon 03-25-2024 CNOV Office Visit (ORTHWS ) -------- JOSH HUFFMAN ([id number]) 1960 F Date Time Provider Department 03/25/24 1:45 PM AVI DOBBINS During your visit today, we recorded the following information about you: Avi Dobbins MD 03/25/2024 2:22 PM Signed Avi Dobbins MD Department of Orthopaedics Orthopaedics [address] [facility] [address] Dept: [phone] Dept March 25, 2024 CHIEF COMPLAINT: Post Op of the Right Knee and 6 weeks 5 days post op Right knee arthroscopic (medial menisectomy lateral and PF chondroplasties). HPI Patient here for post op visit right knee arthroscopy. Patient denies any day. She is back to doing activities she has been unable to do in the past 2 years. She still gets some pain but feels it is arthritic pain and not post op pain. ASSESSMENT: S83.231D Complex tear of medial meniscus of right knee as current injury, subsequent encounter (primary encounter diagnosis) SUMMARY/PLAN: She's doing very well. Much improved from prior to surgery. All activities. Follow up as necessary. Exam: Healed. No swelling. Full ROM. Supporting Information Below: Medications: Current Outpatient Medications Medication Sig levothyroxine (SYNTHROID) 100 mcg tablet Take 1 tablet by mouth two times a week. Mon AND Monday levothyroxine (SYNTHROID) 112 mcg tablet Take 1 tablet by mouth five times a week. Monday-Monday cyanocobalamin, vitamin B-12, (VITAMIN B-12 ORAL) Take 500 mcg by mouth once daily. cholecalciferol, vitamin [...] mouth once daily. Includes Dandelion root 50mg lisinopril-hydrochloroth iazide 10-12.5 mg per tablet Take 1 tablet by mouth every morning. metoprolol succinate XL, long acting, (TOPROL XL) 100 mg Tb24 Take 100 mg by mouth daily at bedtime. No current facility-administered medications for this visit. Allergies: Patient has no known allergies. Avi Dobbins MD Referring Provider: AVI DOBBINS [[id number]] Allergies As of Date: 03/25/2024 (No Known Allergies) Date Reviewed: 03/25/2024 Reviewed by: Avi Dobbins MD - Fully Assessed Reason for Visit: Post Op [174] 6 weeks 5 days post op Right knee arthroscopic [Other] Cmt: medial menisectomy lateral and PF chondroplasties Primary Visit Diagnosis:Complex tear of medial meniscus of right knee as current injury, subsequent encounter [S83.628D] Prescriptions as of 03/25/2024 - levothyroxine (SYNTHROID) 100 mcg tablet Take 1 tablet by mouth two times a week. Mon AND Monday - levothyroxine (SYNTHROID) 112 mcg tablet Take 1 tablet by mouth five times a week. Monday-Monday - cyanocobalamin, vitamin B-12, (VITAMIN B-12 ORAL) Take 500 mcg by mouth once daily. - cholecalciferol, vitamin D3, (VITAMIN D3 ORAL) Take 2,000 Units by mouth once daily. - psyllium husk (METAMUCIL ORAL) Take 5.8 g by mouth once daily. - diclofenac (VOLTAREN) 1 % topical gel Apply 2 g to affected area four times daily. - aspirin, enteric coated (ECOTRIN LOW STRENGTH) 81 mg EC tablet Take 1 tablet by mouth once daily. - KELP ORAL Take 325 mcg by mouth daily at bedtime. iodine supplement - MILK THISTLE ORAL Take 1,000 mg by mouth once daily. Includes Dandelion root 50mg - lisinopril-hydrochloroth iazide 10-12.5 mg per tablet Take 1 tablet by mouth every morning. - metoprolol succinate XL, long acting, (TOPROL XL) 100 mg Tb24 Take 100 mg by mouth daily at bedtime. 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] 10/31/2019 Vitamin D deficiency [E55.9] 10/31/2019 Elevated uric acid in blood [E79.0] 10/31/2019 Bilateral hip bursitis [M70.71, M70.72] 11/2021 Obesity, Class I, BMI 30-34.9 [E66.9] 08/01/2023 Abnormal EKG during exercise stress test [R94.3*08/01/2023 Encounter Status:Closed by AVI DOBBINS on 03/25/24 Normal [facility] Internal Medicine Office Vis iton 03-15-2024 Internal Medicine Office Visit [facility] [address] [place] [address] OFFICE VISIT Date of Service: 03/15/24 MR#: [id number] Acct: [id number] Name: JOSH HUFFMAN Rep #: [id number] : 1960 Provider: Dr. Chester lockett MD Age/Sex: 63/F Location: [facility] Status: Signed Intake Intake Visit Reasons: EST NEW PT - PPW SENT Chief Complaint: EST New PT-PPW sent Is patient in pain?: No Allergies No Known Allergies Allergy (Unverified 03/15/24 10:34) Medications ???Medication ???Instructions ???Recorded ???Confirmed ???Type Vit D 2000 PO 03/15/24 03/15/24 History aspirin 81 mg tablet,delayed 81 mg PO DAILY 03/15/24 03/15/24 History release cyanocobalamin (vitamin B-12) 500 250 mcg PO DAILY 03/15/24 03/15/24 History mcg tablet diclofenac sodium 1 % topical gel 2 g topical ONCE 03/15/24 03/15/24 History (Voltaren Arthritis Pain) kelp oral 325 mcg PO 03/15/24 03/15/24 History levothyroxine 100 mcg tablet 100 mcg PO .twice week 03/15/24 03/15/24 History levothyroxine 112 mcg tablet 112 mcg PO .five times weekly 03/15/24 03/15/24 History lisinopril 10 1 tab PO DAILY 03/15/24 03/15/24 History mg-hydrochlorothiazide 12.5 mg tablet (Zestoretic) metoprolol succinate 100 mg 100 mg PO DAILY 03/15/24 03/15/24 History tablet,extended release 24 hr (Toprol XL) milk thistle 1,000 mg PO 03/15/24 03/15/24 History psyllium husk (aspartame) 3.4 ea PO DAILY 03/15/24 03/15/24 History gram/5.8 gram oral powder (Metamucil [facility]) Nurse's Note: pt states that she is here to establish care with Dr. Valentine. Reports previously being seen at [facility] physicians. [facility] Medical History (Updated 03/15/24 @ 12:[address] Chester Valentine MD) Health care maintenance Hyperlipidemia Hypertension Hypothyroidism Encounter for vitamin deficiency screening Plantar fasciitis of right foot Residual atrial septal defect following repair Wrist fracture High cholesterol Heart disease Gall stones Cataracts, bilateral Arthritis Allergies Bone fracture Surgical History (Updated 03/15/24 @ 10:58 by Roxi Chairez LPN) H/O arthroscopy of right knee History of open heart surgery Status post left foot surgery Hx of tonsillectomy H/O splenectomy Family History (Updated 03/15/24 @ 10:55 by Roxi Chairez LPN) Brother Alcoholism Throat cancer, Onset Age: 60 Mother Psoriatic arthritis Myocardial infarction Hypertension Skin cancer Lung cancer, Onset Age: 92 Heart disease, Onset Age: 65 Brother No problems noted. Sister Melanoma Father Hypertension Social History (Updated 03/15/24 @ 11:00 by Roxi Chairez LPN) adopted: No household members: spouse current occupational status: employed history of recent travel: No Smoking Status: Former smoker Smokeless tobacco user: other alcohol intake: current details: scotts- 6 shots weekly what type of physical activity do you participate in: walking and swimming frequency: 3-4 times per week seatbelt use: always do you feel safe at home: Yes HPI HPI Chief Complaint: EST Oscar PT-PPW sent Details: JOSH HUFFMAN, is a 63 F who presents to the office today primarily to establish care. No acute concerns at this time. Had been following at [facility] physicians. Chronic history of hypothyroidism and over the last couple of months, she states that she has had some difficulty with regulating her thyroid levels. Most recent lab in December with TSH within range. No heat or cold intolerance or unintentional weight changes. Also history of hypertension, blood pressure slightly elevated during this visit however she states that at home, her readings are on average in the 130s. Currently on metoprolol and lisinopril hydrochlorothiazide. Also states that she typically stays very active more so during the summer months. No chest pain, palpitation or shortness of breath reported. Other chronic medical conditions are largely stable. Had a Cologuard in August 2023 with no concerns noted. Typically gets her labs done at the [facility]. Mammogram and bone density scan also said to be recent and were done at [facility]. Up-to-date with her vaccines. ROS Const Constitutional: No body ache, chills, excessive sweating, fatigue, fever(s), frequent falls, headache(s), snoring, weight change, sleep problems, abnormal sleep pattern or change in appetite Eyes Eyes: No blurry vision, change in vision, bulging eyes, floaters, visual disturbances, eye pain or Light sensitivity ENT ENT: No abnormal hearing, ear or mastoid pain, tinnitus, balance problems, nosebleed/epistaxis, nasal congestion, headache(s), neck pain or sore throat Resp Respiratory: No cough, excessive phlegm production, pain on inspiration, shortness of breath, snoring or wheezing Card (more content not included)... Normal [facility] CNOVon 02-19-2024 CNOV Office Visit (ORTHWS ) -------- JOSH HUFFMAN ([id number]) 1960 F Date Time Provider Department 02/19/24 9:00 AM COURTNEY COCHRAN During your visit today, we recorded the following information about you: Darcy Montelongo RN 02/19/2024 11:45 AM Signed AMB ROOMING INTAKE FLOWSHEET DATA Pain Pain Level: 2 Pain Location: Knee-Right Description: Aching Duration Amount of Time: 12 Duration Units: Days Frequency: Intermittent Intervention/Comfort measure: Cold, Medication, Relaxation, Reposition (Tylenol, ice) Patient presents with: Right Knee - Post Op, Follow Up Patient is 1 week 5 days post op R knee arthroscopic medial menisectomy, lateral and PF chondroplasties. Minimal pain. Using ice and tylenol as needed. Courtney Cochran PA-C 02/19/2024 11:45 AM Signed Courtney Cochran PA-C Department of Orthopaedics Orthopaedics [address] [facility] [address] Dept: [phone] Dept February 19, 2024 CHIEF COMPLAINT: Post Op and Follow Up of the Right Knee. ASSESSMENT: S83.231D Complex tear of medial meniscus of right knee as current injury, subsequent encounter (primary encounter diagnosis) M17.11 Primary osteoarthritis of right knee SUMMARY/PLAN: Patient presents 12 days status post right knee arthroscopy. She is doing very well. Notes that her pain is much improved since surgery, has been able to sleep through the night. Some normal stiffness which has been resolving with stretching. We discussed working on range of motion and some gentle scar massage. Activities as tolerated. Follow-up in 1 month. Exam: Incision sites are all well-healed, there is a mild but appropriate effusion of the right knee. Imaging: Deferred today Ms. Josh Huffman was advised as to contrast therapies and/or to take analgesics/anti-inflamma tories as needed and all contraindications were reviewed. Supporting Information Below: Medications: Current Outpatient Medications Medication Sig levothyroxine (SYNTHROID) 100 mcg tablet Take 1 tablet by mouth two times a week. Mon AND Monday levothyroxine (SYNTHROID) 112 mcg tablet Take 1 tablet by mouth five times a week. Monday-Monday cholecalciferol, vitamin D3, (VITAMIN D3 ORAL) Take 2,000 Units by mouth once daily. psyllium husk (METAMUCIL ORAL) Take 5.8 g by mouth once daily. diclofenac (VOLTAREN) 1 % topical gel Apply 2 g to affected area four times daily. aspirin, enteric coated (ECOTRIN LOW STRENGTH) 81 mg EC tablet Take 1 tablet by mouth once daily. MILK THISTLE ORAL Take 1,000 mg by mouth once daily. Includes Dandelion root 50mg lisinopril-hydrochloroth iazide 10-12.5 mg per tablet Take 1 tablet by mouth every morning. metoprolol succinate XL, long acting, (TOPROL XL) 100 mg Tb24 Take 100 mg by mouth daily at bedtime. cyanocobalamin, vitamin B-12, (VITAMIN B-12 ORAL) Take 500 mcg by mouth once daily. KELP ORAL Take 325 mcg by mouth daily at bedtime. iodine supplement No current facility-administered medications for this visit. Allergies: Patient has no known allergies. This note was partially generated using [employer] voice recognition system, and there may be some incorrect words, spellings, and punctuation that were not noted in checking the note before saving. Courtney Cochran PA-C Referring Provider: AVI DOBBINS [[id number]] Allergies As of Date: 02/19/2024 (No Known Allergies) Date Reviewed: 02/19/2024 Reviewed by: Courtney Cochran PA-C - Fully Assessed Reason for Visit: Post Op [174] Follow Up [171] Primary Visit Diagnosis:Complex tear of medial meniscus of right knee as current injury, subsequent encounter [P70.658I] Other Visit Diagnosis:Primary osteoarthritis of right knee [M17.11] Prescriptions as of 02/19/2024 - levothyroxine (SYNTHROID) 100 mcg tablet Take 1 tablet by mouth two times a week. Mon AND Monday - levothyroxine (SYNTHROID) 112 mcg tablet Take 1 tablet by mouth five times a week. Monday-Monday - cyanocobalamin, vitamin B-12, (VITAMIN B-12 ORAL) Take 500 mcg by mouth once daily. - cholecalciferol, vitamin D3, (VITAMIN D3 ORAL) Take 2,000 Units by mouth once daily. - psyllium husk (METAMUCIL ORAL) Take 5.8 g by mouth once daily. - diclofenac (VOLTAREN) 1 % topical gel Apply 2 g to affected area four times daily. - aspirin, enteric coated (ECOTRIN LOW STRENGTH) 81 mg EC tablet Take 1 tablet by mouth once daily. - KELP ORAL Take 325 mcg by mouth daily at bedtime. iodine supplement - MILK THISTLE ORAL Take 1,000 mg by mouth once daily. Includes Dandelion root 50mg - lisinopril-hydrochloroth iazide 10-12.5 mg per tablet Take 1 tablet by mouth every morning. - metoprolol succinate XL, long acting, (TOPROL XL) 100 mg Tb24 Take 100 mg by mouth daily at bedtime. Medication notes this encounter VITAMIN D3 ORAL >> Darcy Montelongo RN 02/19/2024 8:51 AM >> DARCY MONTELONGO Mo (more content not included)... Normal [facility] ANES POSTPROC EVALon 024 ANES POSTPROC EVAL HNO ID: [id number] Author: MELLY BRITTON MD Service: Anesthesiology Author Type: Anesthesiologist Type: Anesthesia Postprocedure Evaluation Filed: 02/07/2024 13:03 Note Text: POST ANESTHESIA EVALUATION NOTE : 1960 Procedure Summary Date: 02/07/24 Room / Location: [facility] OR / [facility] OR Anesthesia Start: 1135 Anesthesia Stop: 1256 Procedure: ARTHROSCOPY KNEE MENISCECTOMY MEDIAL OR LATERAL (Right: Knee) Diagnosis: Complex tear of medial meniscus of right knee as current injury, subsequent encounter (Complex tear of medial meniscus of right knee as current injury, subsequent encounter [S83.231D]) Surgeons: Avi Dobbins MD Responsible Provider: Melly Britton MD Anesthesia Type: general ASA Status: 3 Anesthesia Type: general Airway Type: LMA Last Vitals Vitals Value Taken Time BP 138/62 02/07/24 1300 Temp 02/07/24 1303 Pulse 66 02/07/24 1301 Resp 17 02/07/24 1301 SpO2 98 % 02/07/24 1301 Vitals shown include unfiled device data. Post Anesthesia Patient Status Patient Evaluation: PACU. PACU/ICU Patient Condition: stable. Anticipated Disposition: phase 2 then home. Neurological Status: aware and responsive. Pulmonary Status: breathing comfortably on supplemental oxygen Airway Control: returned to baseline unsupported. Cardiovascular Status: stable. Pain Management: clinically adequate - multimodal analgesia pain management approach Postoperative Hydration: acceptable. Intraoperative Events: no significant anesthesia events Post Operative Nausea/Vomiting Status: no significant post operative nausea or vomiting Recommendation: continue current plan of care. Anesthesia Observations No Documentation SIGNATURE: Melly Britton MD PATIENT NAME: Josh Huffman DATE: February 07, 2024 TIME: 1:03 PM CSN: [id number] [facility] ANES PRE-OPon 02-07-2024 ANES PRE-OP HNO ID: [id number] Author: MELLY BRITTON MD Service: Anesthesiology Author Type: Anesthesiologist Type: Anesthesia Preprocedure Evaluation Filed: 02/07/2024 10:14 Note Text: ANESTHESIOLOGY DAY OF SURGERY NOTE : 1960 Procedure Information Date/Time: 02/07/24 1046 Procedure: ARTHROSCOPY KNEE MENISCECTOMY MEDIAL OR LATERAL (Right: Knee) Location: [place] OR / [place] OR Surgeons: Avi Dobbins MD Estimated body mass index is 32.34 kg/m? as calculated from the following: Height as of this encounter: 175.3 cm (5' 9). Weight as of this encounter: 99.3 kg (219 lb). Most recent hematocrit and potassium results: Hematocrit 42.2 08/01/2023 Potassium 3.6 01/31/2024 Relevant Problems CARDIO (+) Ascending aorta dilation (4.3 cm on non-contrast CT 10/2019, and on CT angiogram 07/2023) (+) HTN (hypertension) ENDO (+) Hypothyroidism NEURO-PSYCH (+) TIA (transient ischemic attack) I - PHYSICAL EVALUATION AIRWAY Patient intubated: No. Tracheostomy tube not present Mallampati: II. TM distance: <3 FB. Neck ROM: full ROM without neurological symptoms. Mouth opening: adequate. Short neck: no. Thick neck: no DENTAL Dental findings: teeth intact. Additional exam findings: yes. CARDIOVASCULAR Rhythm: regular Rate: normal PULMONARY Breath sounds clear to auscultation. II - ANESTHESIA PLAN ASA Score: 3 Anesthetic Plan: general Airway type: LMA The patient is not a current smoker. NPO Status: adequate Beta Jose Monitoring Plan Monitoring plan: Standard ASA. Post Procedure Analgesic Plan Postoperative analgesic plan: parenteral or oral opioids and multimodal analgesia. Informed Consent Anesthetic risks, benefits, alternatives, personnel and consent discussed: yes. Patient / Responsible [employer] Party agrees to proceed: yes Patient / Surrogate agrees to blood products: yes DNR status not reviewed with patient and/or family prior to surgery. Significant changes in the patient condition since the History and Physical, not otherwise documented in primary service progress note: no. Potential Anesthesia issues that may suggest increased risk of complications or contraindication to planned procedure: none. Vitals Value Taken Time BP 163/82 02/07/24937 Pulse Resp 18 02/07/24937 Temp 36.6 ?C (97.9 ?F) 02/07/24937 SpO2 98 % 02/07/24937 Facility-Administered Medications as of 02/07/2024 Medication Dose Route Frequency - lidocaine (PF) 10 mg/mL (1 %) 1-2 mg injection (XYLOCAINE) 0.1-0.2 mL INTRADERMAL PRN - lactated ringers iv infusion 5-30 mL/hr INTRAVENOUS CONTINUOUS - NaCl 0.9% iv flush bag 20 mL INTRAVENOUS PRN - ceFAZolin iv piggyback 2 g in D5W (iso-osmotic) 100 mL (ANCEF) 2 g INTRAVENOUS Pre-Op Once - [COMPLETED] acetaminophen 1,000 mg tab(s) (TYLENOL) 1,000 mg ORAL Pre-Op Once - scopolamine 1 mg over 3 days 1 Patch (TRANSDERM-SCOP) 1 Patch TRANSDERMAL q 72 HR And - [START ON 02/10/2024] scopolamine - REMOVE PATCH OTHER q 72 HR And - scopolamine - VERIFY patch OTHER q 8 H - [COMPLETED] famotidine 20 mg injection (PEPCID) 20 mg INTRAVENOUS ONCE - [COMPLETED] promethazine 12.5 mg tab(s) (PHENERGAN) 12.5 mg ORAL Pre-Op Once Outpatient Medications as of 02/07/2024 Medication Sig - levothyroxine (SYNTHROID) 112 mcg tablet Take 1 tablet by mouth five times a week. Monday-Monday - metoprolol succinate XL, long acting, (TOPROL XL) 100 mg Tb24 Take 100 mg by mouth daily at bedtime. - levothyroxine (SYNTHROID) 100 mcg tablet Take 1 tablet by mouth two times a week. Mon AND Monday - cyanocobalamin, vitamin B-12, (VITAMIN B-12 ORAL) Take 500 mcg by mouth once daily. - cholecalciferol, vitamin D3, (VITAMIN D3 ORAL) Take 2,000 Units by mouth once daily. - psyllium husk (METAMUCIL ORAL) Take 5.8 g by mouth once daily. - diclofenac (VOLTAREN) 1 % topical gel Apply 2 g to affected area four times daily. - aspirin, enteric coated (ECOTRIN LOW STRENGTH) 81 mg EC tablet Take 1 tablet by mouth once daily. - KELP ORAL Take 325 mcg by mouth daily at bedtime. iodine supplement - MILK THISTLE ORAL Take 1,000 mg by mouth once daily. Includes Dandelion root 50mg - lisinopril-hydrochloroth iazide 10-12.5 mg per tablet Take 1 tablet by mouth every morning. I have interviewed and examined the patient. I have reviewed the medical record and/or the pre-anesthesia evaluation, pertinent labs, and test results. This contains updated information obtained within 48 hours of Surgery/Procedure. SIGNATURE: Melly Britton MD PATIENT NAME: Josh Huffman DATE: February 07, 2024 TIME: 10:14 AM CSN: [id number] [facility] OPERATIVE NOon 02-07-2024 OPERATIVE NO HNO ID: [id number] Author: AVI DOBBINS MD Service: Orthopaedic Surgery Author Type: Physician Type: Operative Report Filed: 02/07/2024 12:56 Note Text: OPERATIVE/PROCEDURE REPORT LOG ID: [id number] Surgery/Procedure Date: 02/07/2024 Incision/Procedure Start Time: 12:01 PM Incision Close/Procedure End Time: 12:42 PM Surgeon(s)/Proceduralist (s) and Die Designer Apprentice(s): Surgeon(s) and Role: * Avi Dobbins MD - Primary Physician Die Designer Apprentice: Roxanne Easton PA-C; Courtney Cochran PA-C Procedure(s): right knee, arthroscopic medial meniscectomy, lateral and patellofemoral chondroplasties. Anesthesia: General with Intraarticular analgesia. OPERATIVE INDICATIONS: This is a pleasant 63 year old year-old female, who had an injury to the knee causing mechanical symptoms, recurrent swelling and pain. Patient attempted conservative management with activity modification, medications, and an MRI reported a meniscus tear medially as well as some mild OA. I discussed with her multiple options including the risks, benefits, alternatives, and potential complications involving surgery and she wished to pursue surgical intervention. Procedure Details: On 02/07/2024, the patient was clearly identified in the preoperative area and marked accordingly on the right knee by myself. She received 2g of Ancef in the IV within 1 hour incision or tourniquet. Patient was taken to the operative suite and placed in the supine position. Anesthesia assumed care of the head and neck for the remainder of the case and began a general anesthetic. All other bony landmarks were appropriately padded in standard fashion. The well lower extremity was placed in a semi-lithotomy position, again with neurovascular bundles appropriately padded. The surgical lower extremity had a well-padded upper thigh tourniquet placed with Webril padding and set at 300 mmHg, but not yet inflated. After a betadine swab, the patient was provided a intra-articular injection with 50 mL of 0.2% ropivacaine plain and 2 mg of morphine sulfate at the superior lateral knee joint. Patient was then placed in a well-padded arthroscopic leg thrasher. Patient was sterilely prepped and draped in standard fashion. Appropriate time-out was conducted and all in the room were in agreement, signed consent form was on the chart and images were available for viewing. The lower extremity was then exsanguinated with an Esmarch bandage and the tourniquet was applied at 300 mmHg. Next, the portal incisions were injected with 1% lidocaine with 1:100,000 epinephrine and 0.2% ropivacaine for total of 10 mL. A stab incision was then made with an #11 blade at the inferolateral, parapatellar area and I entered into the joint atraumatically with 1 pass with blunt trocar and camera. A stab incision was made at the superomedial joint for placement of an outflow cannulae. Arthroscopic diagnostic exam was completed that showed Grade II chondrosis and Grade III chondrosis on the undersurface of the both medial and lateral patellar facets as well as in the trochlea. I came down in the medial and lateral gutters, which were free of any debris. I entered into the medial joint line and under spinal needle identification, made my standard working portal at the inferomedial, parapatellar tendon location. I entered in with a hooked probe and explored the joint. The medial distal femoral condyle was showing Grade I chondrosis. The medial tibial plateau surface appeared with Pristine cartilage. The ACL and PCL were found to be intact and rather dumont. The lateral joint line showed Pristine cartilage and a focal, partial thickness cartilage lesion of the lateral distal femoral condyle, approximately the size of a dime or nickel. The lateral tibial plateau surface appeared with Pristine cartilage. I next identified a tear of the medial meniscus; characterized as medial, bucket-handle, complex, and anterior to posterior. The complex tear was flipped into the medial joint and partially into the notch. I worked my way with both arthroscopic biter tools as well as the 4.5mm resector shaver and made a stable rim in the meniscus, without any fragments or flaps noted. Again, the entire meniscus was taken to a stable base without any further concerns. I did an appropriate chondroplasty of the lateral distal femoral condyle and the patellofemoral compartment on both surfaces to smoothen out any areas of fibrillation and smaller flaps which appeared unstable. I then explored the three compartments one last time for any loose debris and suction irrigated. The arthroscopic fluid was suctioned out through the outflow cannula and the arthroscopic portals were closed with 4-0 monocryl suture in buried fashion. Steri-Strips were applied to all 3 incision sites. Xeroform gauze, sterile 4 x 4 gauze, ABD and a thigh-high LILLIAM hose was applied for final bandage. Tourniquet was taken down. There w (more content not included)... Normal [facility] Basic metabolic 2000 panelon 01-31-2024 Anion gap [Moles/Vol] 9 mmol/L Normal 9-18 [facility] Comment on above: Order Comment: Speci men Type: BLOOD SPECIMEN Ordering Facility: [facility] Address: [address] [place] [address] Performed By: #### 2 4321-2 #### [facility] CLIA [id number] [address] [place] [id number] [place] Calcium [Mass/Vol] 9.9 mg/dL Normal 8.5-10.2 [facility] Comment on above: Order Comment: Speci men Type: BLOOD SPECIMEN Ordering Facility: [facility] Address: [address] [place] [address] Performed By: #### 2 4321-2 #### [facility] CLIA [id number] [address] [place] [address] [place] Chloride [Moles/Vol] 103 mmol/L Normal 97-105 [facility] Comment on above: Order Comment: Speci men Type: BLOOD SPECIMEN Ordering Facility: [facility] Address: [address] [place] [address] Performed By: #### 2 4321-2 #### [id number] [address] [place] [address] [place] CO2 [Moles/Vol] 24 mmol/L Normal 22-30 [facility] Comment on above: Order Comment: Speci men Type: BLOOD SPECIMEN Ordering Facility: [facility] Address: [address] [place] [address] Performed By: #### 2 4321-2 #### [facility] [id number] [address] [place] [address] [place] Creatinine [Mass/Vol] 0.73 mg/dL Normal 0.58-0.96 [facility] Comment on above: Order Comment: Speci men Type: BLOOD SPECIMEN Ordering Facility: [facility] Address: [address] [place] [address] Performed By: #### 2 4321-2 #### [facility] [id number] [address] [place] [address] [place] Creatinine and Glomerular filtration rate.predicted panel (S/P/Bld) 91 mL/min/1.73m??? Normal >=60 [facility] Comment on above: Order Comment: Speci men Type: BLOOD SPECIMEN Ordering Facility: [facility] Address: [address] [id number] Result Comment: Andree mated Glomerular Filtration Rate (eGFR) is calculated using the 2020 CKD-EPI creatinine equation. This equation utilizes serum creatinine, sex, and age as parameters. The creatinine assay has traceable calibration to isotope dilution-mass spectrometry. Refer to KDIGO guidelines for clinical interpretation. In patients with unstable renal function, e.g. those with acute kidney injury, the eGFR may not accurately reflect actual GFR. Performed By: #### 2 4321-2 #### [facility] [id number] [address] [place] [address] [place] Glucose [Mass/Vol] 92 mg/dL Normal 74-99 [facility] Comment on above: Order Comment: Anish wing Type: BLOOD SPECIMEN Ordering Facility: [facility] Address: [address] [place] [address] Result Comment: The [place] [employer] Association (ADA) provides guidance for cutoff values for fasting glucose and random glucose. The ADA defines fasting as no caloric intake for at least 8 hours. Fasting plasma glucose results between 100 to 125 mg/dL indicate increased risk for diabetes (prediabetes). Fasting plasma glucose results greater than or equal to 126 mg/dL meet the criteria for diagnosis of diabetes. In the absence of unequivocal hyperglycemia, results should be confirmed by repeat testing. In a patient with classic symptoms of hyperglycemia or hyperglycemic crisis, random plasma glucose results greater than or equal to 200 mg/dL meet the criteria for diagnosis of diabetes. Reference: Standards of Medical Care in Diabetes 2016, [place] [employer]. Diabetes Care. 2016.39(Suppl 1). Performed By: #### 2 4321-2 #### [facility] [id number] [address] [place] [address] [place] Potassium [Moles/Vol] 3.6 mmol/L Low 3.7-5.1 [facility] Comment on above: Order Comment: Anish wing Type: BLOOD SPECIMEN Ordering Facility: [facility] Address: [address] [id number] Performed By: #### 2 4321-2 #### [facility] CLIA [id number] [address] [place] [address] [place] Sodium [Moles/Vol] 136 mmol/L Normal 136-144 [facility] Comment on above: Order Comment: Speci men Type: BLOOD SPECIMEN Ordering Facility: [facility] Address: [address] [place] [address] Performed By: #### 2 4321-2 #### [facility] CLIA [id number] [address] [place] [address] [place] Urea nitrogen [Mass/Vol] 14 mg/dL Normal 7-21 [facility] Comment on above: Order Comment: Speci men Type: BLOOD SPECIMEN Ordering Facility: [facility] Address: [address] [place] [address] Performed By: #### 2 4321-2 #### [facility] CLIA [id number] [address] [place] [address] [place] HISTORY PHYSICALon HISTORY PHYSICAL HNO ID: [id number] Author: MAHSA MATIAS APRN.SALES STRATEGY MANAGER Service: ? Author Type: Clinical Nurse Specialist Type: H&P Filed: 02/06/2024 15:09 Note Text: PREANESTHESIA CONSULT CLINIC TELEHEALTH VISIT Patient has been identified by name and date of : Yes This is a virtual visit using [employer] Video Visit. It require patient-provider interaction for the medical decision making as documented below. Reason for contact: PACC visit Accompanied by: Self This is a virtual visit using Virtual Visit (Audio/Visual)I have discussed the nature of this visit with the patient which will occur via Distance Health (Phone, Virtual Visit) and she agrees to proceed with this interaction. It required patient-provider interaction for the medical decision making as documented below. I have communicated my name and active licensure. The patient's identity and physical location were verified at the time of this visit. Either the patient or their legal commissary representative has been informed of the risks and benefits of and alternatives to treatment through a remote evaluation and consents to proceed with the evaluation remotely. Scheduled Surgery: ARTHROSCOPY KNEE MENISCECTOMY MEDIAL OR LATERAL - Right with Avi Dobbins MD on 02/07/2024 Subjective CHIEF COMPLAINT: No chief complaint on file. Patient stated I have right knee pain and will need surgery HPI: This is a 63 year old female who presents with patient stated she has had right knee pain for the last year. Pain has increased to 6/10 on pain scale,,aching, sharp pain. Consulted D Tear Medial Meniscus Right Knee:Current Injury:Subsequent Encounter.. Esteban. After exam, MRI Right Knee, Dx with Com[gale ACTIVE PROBLEM LIST Psoriasis (Normal Spontaneous Vaginal Delivery) Menopausal State Htn (Hypertension) Pap Smear for Cervical Cancer Screening Foot Pain Heel Spur Plantar Fasciitis Asd (Atrial Septal Defect) Tia (Transient Ischemic Attack) Ascending aorta dilation (4.3 cm on non-contrast CT 10/2019, and on CT angiogram 07/2023) Normal coronary arteries, Coronary Calcium Score = 0 (10/2019) Hypothyroidism Prediabetes Hypercholesterolemia Elevated Lipoprotein(a) Vitamin D Deficiency Elevated Uric Acid in Blood Bilateral Hip Bursitis Obesity, Class I, Bmi 30-34.9 Abnormal EKG during exercise stress test PAST MEDICAL HISTORY Diagnosis Date Ascending aorta dilation (4.3 cm on non-contrast CT 10/2019) 10/31/2019 ASD (atrial septal defect) 1988 repaired at [facility] at age 27 Bilateral hip bursitis 11/2021 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 Elevated uric acid in blood 10/31/2019 without gout Heel spur resolved with Tenex Hypercholesterolemia 10/31/2019 Hypertension on medication since 2012 Hypothyroidism 2017 Menopausal state Normal coronary arteries, Coronary Calcium Score = 0 (10/2019) 10/31/2019 (normal spontaneous vaginal delivery) 1987, 1989, 1993 1987: 8'12; 1989 9'3; 1993: 9'1 Prediabetes 10/31/2019 Psoriasis scalp Right plantar fasciitis treated with Tenex TIA (transient ischemic attack) 1987 during first , diagnosed ASD, repaired at [facility] after delivery Vitamin D deficiency 10/31/2019 PAST SURGICAL HISTORY Procedure Laterality Date COLONOSCOPY 07/23/2012 hemorrhoids, diverticulosis, advised 10-year follow-up HEART SURGERY HX 1988 at [facility], atrial septal defect repair LASIK Right 2001 Right PAST SURGICAL HISTORY OF 2018 laser surg, greater and lesser saphenous veins, bilateral REMOVAL OF SPLEEN TOTAL 1969 traumatic SKIN BIOPSY HX benign TOE SURGERY HX 2013 tendon repairs due [...] 10/16/1975 Quit date: 10/16/1979 Years since quittin.3 Smokeless tobacco: Never Vaping Use Vaping Use: Never used Substance Use Topics Alcohol use: Not Currently Comment: currently not drinking Drug use: Never ALLERGIES No Known Allergies MEDICATIONS: Current Outpatient Medications Medication Sig levothyroxine (SYNTHROID) 100 mcg tablet Take 1 tablet by mouth two times a week. S (more content not included)... Normal [facility] CNCOon 01-12-2024 CNCO Letter Text Normal [facility] CNPNon 01-12-2024 [place] Telephone (TALON) -------- JOSH HUFFMAN ([id number]) 1960 F Date Time Provider Department 01/12/24 AVI DOBBINS During your visit today, we recorded the following information about you: Darline Phelps MA 01/12/2024 9:00 AM Signed I called and left a message for the patient to contact the office to schedule surgery. Please transfer to Ortho. Darline Phelps MA 01/12/2024 9:48 AM Signed Patient returned call. Surgical request completed for right knee arthroscopic medial menisectomy with chondroplasty at [facility] on 02/07/2024. Post op appointments have been scheduled and mailed to the patient. Darline Phelps MA 01/12/2024 11:02 AM Signed Surgery has been scheduled as requested. Allergies As of Date: 01/12/2024 (No Known Allergies) Date Reviewed: 01/11/2024 Reviewed by: Kiah Pairs MA - Fully Assessed Reason for Visit: Schedule Surgery [1330] Primary Visit Diagnosis:Complex tear of medial meniscus of right knee as current injury, subsequent encounter [S83.231D] Order(s):SURGICAL REQUEST - ELECTIVE (05/2020) [0580722] Order #: [id number]: 1 Prescriptions as of 01/12/2024 - meloxicam (MOBIC) 15 mg tablet Take 1 tablet by mouth once daily. - levothyroxine (SYNTHROID) 100 mcg tablet Take 1 tablet by mouth four times a week. Mon AND Monday - levothyroxine (SYNTHROID) 112 mcg tablet Take 1 tablet by mouth three times a week. Monday-Monday - cyanocobalamin, vitamin B-12, (VITAMIN B-12 ORAL) Take 500 mcg by mouth once daily. - cholecalciferol, vitamin D3, (VITAMIN D3 ORAL) Take 2,000 Units by mouth once daily. - psyllium husk (METAMUCIL ORAL) Take 5.8 g by mouth once daily. - diclofenac (VOLTAREN) 1 % topical gel Apply 2 g to affected area four times daily. - aspirin, enteric coated (ECOTRIN LOW STRENGTH) 81 mg EC tablet Take 1 tablet by mouth once daily. - KELP ORAL Take 325 mcg by mouth daily at bedtime. iodine supplement - MILK THISTLE ORAL Take 1,000 mg by mouth once daily. Includes Dandelion root 50mg - lisinopril-hydrochloroth iazide 10-12.5 mg per tablet Take 1 tablet by mouth every morning. - metoprolol succinate XL, long acting, (TOPROL XL) 100 mg Tb24 Take 100 mg by mouth daily at bedtime. Problem List As Of Date 01/12/2024 Noted Resolved Psoriasis [L40.9] (normal spontaneous vaginal delivery) [O80] Menopausal state [N95.1] HTN (hypertension) [I10] Pap smear for cervical cancer screening [Z12.4] 2016 Foot pain [M79.673] Heel spur [M77.30] Plantar fasciitis [M72.2] ASD (atrial septal defect) [Q21.10] TIA (transient ischemic attack) [G45.9] 1987 Ascending aorta dilation (4.3 cm on non-contras*10/31/2019 Normal coronary arteries, Coronary Calcium Scor*10/31/2019 Hypothyroidism [E03.9] 08/01/2023 Prediabetes [R73.03] 10/31/2019 Hypercholesterolemia [E78.00] 10/31/2019 Elevated lipoprotein(a) [E78.41] 10/31/2019 Vitamin D deficiency [E55.9] 10/31/2019 Elevated uric acid in blood [E79.0] 10/31/2019 Bilateral hip bursitis [M70.71, M70.72] 11/2021 Obesity, Class I, BMI 30-34.9 [E66.9] 08/01/2023 Abnormal EKG during exercise stress test [R94.3*08/01/2023 Encounter Status:Closed by DARLINE PHELPS on 01/12/24 [facility] CNOVon 01-11-2024 CNOV Office Visit (OTMBHT ) -------- JOSH HUFFMAN ([id number]) 1960 F Date Time Provider Department 01/11/24 3:40 PM AVI DOBBINS During your visit today, we recorded the following information about you: Avi Dobbins MD 01/17/2024 9:36 AM Signed Avi Dobbins MD Department of Orthopaedics Orthopaedic Surgery [facility] [address] [address] [facility] [address] Dept: [phone] Dept January 11, 2024 CHIEF COMPLAINT: Follow Up and Follow Up Tests Results of the Right Knee (MRI) HPI Patient is here today for a follow up for her right knee, and to discuss MRI results. ASSESSMENT: S83.231D Complex tear of medial meniscus of right knee as current injury, subsequent encounter (primary encounter diagnosis) M17.11 Primary osteoarthritis of right knee PLAN: We reviewed the risks, benefits, alternatives and potential complications with op and non-op. She would like to proceed with an arthroscopy. OBJECTIVE: Ms. Josh Huffman is a pleasant 63 year old in no apparent distress. Gen:There were no vitals taken for this visit. nl development, non obese, no deformities ENT: Normocephalic, normal hearing, moist mucosa CV: Pulses:DP/PT= 2+ and symmetric, capillary refill < 2 secs, no peripheral edema/varicosities Skin: no rash, bruising or lesions. Good turgor. Psych: cooperative and appropriate, alert and oriented x 3, good mood and affect. Musculoskeletal: Stable exam from prior visit Imaging: IMPRESSION: COMPLEX TEAR OF THE MEDIAL MENISCUS. DEGENERATIVE CHONDRAL CHANGES DESCRIBED. Occupational Therapy Technician: CHELSEA Transcribe Date/Time: Jan 01 2024 9:23A Dictated by : DELMA OAKES MD This examination was interpreted and the report reviewed and electronically signed by: DELMA OAKES MD on Jan 01 2024 9:25AM EST Results-Findings * * *Final Report* * * DATE OF EXAM: Dec 30 2023 1:26PM QBM 0213 - MRI KNEE WO IVCON RT / PROCEDURE REASON: multiple diagnoses * * * * Physician Interpretation * * * * EXAMINATION: MRI RIGHT KNEE WITHOUT CONTRAST CLINICAL HISTORY: Tear of medial meniscus of right knee, current, unspecified tear type, subsequent encounter Primary osteoarthritis of right knee TECHNIQUE: Routine non-contrast MRI of the knee MQ: MRK_2B COMPARISON: None RESULT: MENISCI: Medial Meniscus: Complex tear in the posterior horn and body Lateral Meniscus: Degenerative changes without a tear LIGAMENTS: ACL: Intact PCL: Intact MCL: Intact LCL Complex: Intact CARTILAGE: Medial Femoral Condyle: Small area(s) of high grade (greater than 50% thickness) partial thickness cartilage loss and or fissuring along the far medial margin of the joint. Medial Tibial Plateau: Normal Lateral Femoral Condyle: Normal Lateral Tibial Plateau: Normal Patella: Large area(s) of full thickness cartilage loss/fissuring Trochlea: Small area(s) of low grade (less than 50% thickness) partial thickness cartilage loss and or fissuring TENDONS: The distal quadriceps and patellar tendons are intact. The popliteus tendon is intact. BONES AND MARROW: No evidence of fracture or bone marrow replacing process. MUSCLES: Muscle bulk and signal intensity are normal. JOINT FLUID AND SYNOVIUM: Small joint effusion. No synovitis. Small Campbell's cyst. OTHER: No other significant abnormality identified. Supporting Subjective Information Below: Past Surgical History: PAST SURGICAL HISTORY Procedure Laterality Date COLONOSCOPY 07/23/2012 hemorrhoids, diverticulosis, advised 10-year follow-up HEART SURGERY HX 1987 at [facility], atrial septal defect repair LASIK Right 2001 Right PAST SURGICAL HISTORY OF 2018 laser surg, greater and lesser saphenous veins, bilateral REMOVAL OF SPLEEN TOTAL 1969 traumatic SKIN BIOPSY HX benign TOE SURGERY HX 2012 tendon repairs due to step into groundhog hole, second surgery same year due to atrophic changes TONSILLECTOMY HX 1975 US GUIDED PLANTAR FASCIOTOMY Right 12/25/2020 Right Medications: Current Outpatient Medications Medication Sig levothyroxine (SYNTHROID) 100 mcg tablet Take 1 tablet by mouth four times a week. Mon AND Monday levothyroxine (SYNTHROID) 112 mcg tablet Take 1 tablet by mouth three times a week. Monday-Monday cyanocobalamin, vitamin B-12, (VITAMIN B-12 ORAL) Take 500 mcg by mouth once daily. cholecalciferol, vitamin [...] 1,000 mg by mouth once daily. Includes Dandeli (more content not included)... Normal [facility] Serum or plasma thyroid stim ulating hormone (TSH) measurement (units/volume)Ordered By: Nubia Sage on 01-05-2024 TSH Qn 1.20 uIU/mL 0.358-3.74 [facility] T4 Free Directon 01-05-2024 T4 FREE DIRECT 1.59 ng/dL High 0.76-1.46 [facility] Comment on above: Order Comment: Order Date: 11/22/23 Order Info: [id number] - TSH Order Info: 7 - T4F Performed By: #### L [id number], L506.0400 #### [facility] [address] [place], [address] Thin prep Papanicolaou smear with manual screeningOrdered By: Nubia Sage on 01-05-2024 Thin prep Papanicolaou smear with manual screening 1.59 ng/dL 0.76-1.46 [facility] Thyroid Stim Hormone (TSH)on 01-05-2024 TSH 1.20 uIU/mL Normal 0.358-3.74 [facility] Comment on above: Order Comment: Order Date: 11/22/23 Order Info: [id number] - TSH Order Info: [id number] - T4F Performed By: #### L [id number], L506.0400 #### [facility] [address] [place], [place], [address] MRI KNEE WO IVCON RTon 12-29 MRI KNEE WO IVCON RT * * *Final Report* * * DATE OF EXAM: Dec 30 2023 1:26PM QBM 0213 - MRI KNEE WO IVCON RT / PROCEDURE REASON: multiple diagnoses * * * * Physician Interpretation * * * * EXAMINATION: MRI RIGHT KNEE WITHOUT CONTRAST CLINICAL HISTORY: Tear of medial meniscus of right knee, current, unspecified tear type, subsequent encounter Primary osteoarthritis of right knee TECHNIQUE: Routine non-contrast MRI of the knee MQ: MRK_2B COMPARISON: None RESULT: MENISCI: Medial Meniscus: Complex tear in the posterior horn and body Lateral Meniscus: Degenerative changes without a tear LIGAMENTS: ACL: Intact PCL: Intact MCL: Intact LCL Complex: Intact CARTILAGE: Medial Femoral Condyle: Small area(s) of high grade (greater than 50% thickness) partial thickness cartilage loss and or fissuring along the far medial margin of the joint. Medial Tibial Plateau: Normal Lateral Femoral Condyle: Normal Lateral Tibial Plateau: Normal Patella: Large area(s) of full thickness cartilage loss/fissuring Trochlea: Small area(s) of low grade (less than 50% thickness) partial thickness cartilage loss and or fissuring TENDONS: The distal quadriceps and patellar tendons are intact. The popliteus tendon is intact. BONES AND MARROW: No evidence of fracture or bone marrow replacing process. MUSCLES: Muscle bulk and signal intensity are normal. JOINT FLUID AND SYNOVIUM: Small joint effusion. No synovitis. Small Campbell's cyst. OTHER: No other significant abnormality identified. Localizer images: IMPRESSION: COMPLEX TEAR OF THE MEDIAL MENISCUS. DEGENERATIVE CHONDRAL CHANGES DESCRIBED. Occupational Therapy Technician: [facility]OSPIT[facility]athia Transcribe Date/Time: Jan 01 2024 9:23A Dictated by : DELMA OAKES MD This examination was interpreted and the report reviewed and electronically signed by: DELMA OAKES MD on Jan 01 2024 9:25AM EST [id number] Normal [facility] - Chemistry and C hemistry - challengeOrdered By: Nubia Sage on 10-17-2023 Free T4 [Mass/Vol] 1.19 ng/dL 0.76-1.46 [facility] No Panel InformationOrdered By: Nubia Sage on 10-17-2023 Thyroid Stimulating Hormone (TSH) 3.81 uIU/mL 0.358-3.74 [facility] CT ABD/PEL WO IVCONon 2022 [facility] HIV 1+2 Ab IA Qlon 3 HIV 1 and 2 Ab IA.rapid Nom [facility] HIV 1+2 Ab+HIV1 p24 Ag IA Ql Non-Reactive Nonreactive [facility] HIV immunoassay testing algorithm interpretation (S/P/Bld) [Interp] [facility] No Panel Informationon 08-01 [facility] Basophil percentageOrdered B y: Nubia Sage on 05-19-2023 Bilirubin [Mass/Vol] 0.50 mg/dL 0.20-1.00 [facility] Comment on above: For patients on eltr ombopag therapy, use of Dimension Drew TBIL is not recommended. Chloride [Moles/Vol] 100 mmol/L 98-107 [facility] Cholesterol [Mass/Vol] 213 mg/dL <200 [facility] Comment on above: <200 mg/dL Desirable 200-240 mg/dL Borderline >240 mg/dL High Risk Glucose [Mass/Vol] 93 mg/dL 74-106 [facility] Potassium [Moles/Vol] 3.8 mmol/L 3.5-5.1 [facility] Protein [Mass/Vol] 7.4 g/dL 6.4-8.2 [facility] Sodium [Moles/Vol] 135 mmol/L 136-145 [facility] Triglyceride [Mass/Vol] 161 mg/dL <199 [facility] Comment on above: The drugs N-Acetylcy steine and Metamizole may falsely depress this assay.Serum Triglycerides Reference Interval Normal <150 mg/dL Borderline high 150 - 199 mg/dL High 200 - 499 mg/dL Very High > or = 500 mg/dL Laboratory - Chemistry and C hemistry - challengeOrdered By: Nubia Sage on 05-19-2023 ALP [Catalytic activity/Vol] 61 U/L 45-117 [facility] ALT [Catalytic activity/Vol] 28 U/L 13-56 [facility] CO2 [Moles/Vol] 28.0 mmol/L 21.0-32.0 [facility] Globulin (S) [Mass/Vol] 3.6 g/dL 2.2-4.2 [facility] Urea nitrogen/Creatinine [Mass ratio] 18.2 mg/mg 10-20 [facility] No Panel InformationOrdered By: Nubia Sage on 05-19-2023 Estimated GFR (MDRD) Amer 97 mL/min >60 [facility] Comment on above: GFR Calc Estimated GFR (MDRD) Non-Af Amer 80 mL/min >60 [facility] Comment on above: Non- GFR Calc No Panel InformationOrdered By: Edy Salcedo on 05-19-2023 Urine Microalbumin/Creatin ine Ratio 8.4 mg/g CRE <30 [facility] Serum or plasma albumin bird urement (mass/volume)Ordered By: Nbuia Sage on 05-19-2023 Albumin [Mass/Vol] 3.8 g/dL 3.2-5.0 [facility] Serum or plasma albumin/glob ulin mass ratioOrdered By: Nubia Sage on 05-19-2023 Albumin/Globulin [Mass ratio] 1.1 {ratio} 0.9-2.4 [facility] Serum or plasma calcium bird urement (mass/volume)Ordered By: Nubia Sage on 05-19-2023 Calcium [Mass/Vol] 9.6 mg/dL 8.5-10.1 [facility] Serum or plasma cholesterol in HDL measurement (mass/volume)Ordered By: Nubia Sage on 05-19-2023 Cholesterol in HDL [Mass/Vol] 70 mg/dL >40 [facility] Comment on above: The drugs N-Acetylcy steine and Metamizole may falsely depress this assay. Reference Range HDL <40 mg/dL Low HDL Cholesterol HDL >or= 60 mg/dL High HDL Cholesterol Serum or plasma cholesterol in VLDL measurement (mass/volume)Ordered By: Nubia Sage on 05-19-2023 Cholesterol in VLDL [Mass/Vol] 32 mg/dL 5-40 [facility] Serum or plasma creatinine m easurement (mass/volume)Ordered By: Nubia Sage on 05-19-2023 Creatinine [Mass/Vol] 0.77 mg/dL 0.55-1.02 [facility] Comment on above: The validity of the calculated GFR & GFRAA in patients over 70 years has not been determined. Clinical correlation is essential. Serum or plasma low density lipoprotein (LDL) cholesterol measurement (mass/volume)Ordered By: Nubia Sage on 05-19-2023 Cholesterol in LDL [Mass/Vol] 111 mg/dL 0-130 [facility] Serum or plasma urea nitroge n measurement (mass/volume)Ordered By: Nubia Sage on 05-19-2023 Urea nitrogen [Mass/Vol] 14 mg/dL 7-18 [facility] Thin prep Papanicolaou smear with manual screeningOrdered By: Nubia Sage on 05-19-2023 Thin prep Papanicolaou smear with manual screening 32 U/L 15-37 [facility] Thin prep Papanicolaou smear with manual screening 7 5-15 [facility] Thin prep Papanicolaou smear with manual screeningOrdered By: Edy Salcedo on 05-19-2023 Thin prep Papanicolaou smear with manual screening 15.7 mg/L NO RANGE EST. [facility] Urine creatinine measurement (mass/volume)Ordered By: Edy Salcedo on 05-19-2023 Creatinine (U) [Mass/Vol] 187.00 mg/dL NO RANGE EST. [facility] Laboratory - Chemistry and C hemistry - challengeOrdered By: Nubia Sage on 01-26-2023 Free T4 [Mass/Vol] 1.10 ng/dL 0.76-1.46 [facility] No Panel InformationOrdered By: Nubia Sage on 01-26-2023 Thyroid Stimulating Hormone (TSH) 1.99 uIU/mL 0.358-3.74 [facility] No Panel Informationon 08-24 Thyroid Stimulating Hormone (TSH) 3.27 uIU/mL 0.358-3.74 [facility] Work Phone: No Panel Informationon 07-20 Thyroid Stimulating Hormone (TSH) 0.28 uIU/mL 0.358-3.74 [facility] Work Phone: No Panel Informationon 04-25 Thyroid Stimulating Hormone (TSH) 0.36 uIU/mL 0.358-3.74 [facility] Work Phone: CNOVon 01-06-2021 CNOV Office Visit (AGHWW1 ) -------- JOSH HUFFMAN ([id number]) 1960 F Date Time Provider Department 01/06/21 8:45 AM [facility] During your visit today, we recorded the following information about you: Respiration Weight Height 18/minute 102.1 kg 1.765 m Dean Tejeda MD, 01/06/2021 8:55 AM Signed HPI: Josh Huffman is a 60 year [...] - ASD (atrial septal defect) repaired at [facility] at age 27 - Heel spur - HTN (hypertension) - Hypothyroid levothyroxine 75 mcg - Menopausal state - (normal spontaneous vaginal delivery) 1987, 1989, 1993 1987: 8'12; 1989 9'3; 1993: 9'1 - Pap smear for cervical cancer screening 2016 - Plantar fasciitis - Psoriasis - TIA (transient ischemic attack) 1987 during first , diagnosed ASD, repaired at [facility] after delivery PAST SURGICAL HISTORY Procedure Laterality Date - EXTENSIVE FOOT SURGERY - HEART SURGERY HX 1987 at [facility], atrial septal defect repair - LASIK Right 2001 - PAST SURGICAL HISTORY OF 2018 laser surg, greater and lesser saphenous veins - REMOVAL SPLEEN, TOTAL 1969 traumatic - SCRN COLONOSCOP 2012 10 yr f/u - SKIN BIOPSY HX [...] cap Take by mouth twice daily. - lisinopril-hydrochloroth iazide 10-12.5 mg per tablet Take 1 tablet [...] errors which are inherent in voice-recognition technology. MD Dean Becerra MD, MD 01/06/2021 8:52 AM Addendum Foot core exercises (please try and do daily, or every other day over the next 2-4 weeks) [email or web address] Slow increase in exercise and walking. Please slowly increase your time/distance every other day. This should increase over the next 4-6 weeks to your preferred distance. Referring Provider: GARY KUMAR [[id number]] Allergies As of Date: 01/06/2021 (No Known Allergies) Date Reviewed: 01/06/2021 Reviewed by: Dean Tejeda MD - Fully Assessed Reason for Visit: Established Patient [175] Primary Visit Diagnosis:Plantar fasciitis of right foot [M72.2] Prescriptions as of 01/06/2021 Sig: ASPIRIN 81 MG TABLET,DELAYED * Take 1 tablet by mouth once d* KELP ORAL Take by mouth once daily. LEVOTHYROXINE 75 MCG TABLET Take 75 mcg by mouth once etelvina* TRIAMCINOLONE ACETONIDE 0.1 %* Apply to affected area twice * MILK THISTLE ORAL Take 1,000 mg by mouth once d* NAPROXEN SODIUM 220 MG CAPSULE Take by mouth twice daily. * LISINOPRIL 10 MG-HYDROCHLOROT* Take 1 tablet by mouth once d* * METOPROLOL SUCCINATE ER 100 M* Take by mouth. Problem List As Of Date 01/06/2021 Noted Resolved Hypothyroi (more content not included)... Normal [facility] HISTORY PHYSICALon HISTORY PHYSICAL HNO ID: [id number] Author: Leticia Brandon Service: Anesthesiology Author Type: Nurse Practitioner Type: HANDP Filed: 12/25/2020 1:24 PM Note Text: HISTORY AND PHYSICAL EXAMINATION Josh Huffman 1960 SERVICE DATE: 12/25/2020 SERVICE TIME: 1:11 PM PRIMARY CARE PHYSICIAN: Leon Alvarado DO SURGEON: Surgeon(s) and Role: * Dean Tejeda MD - Primary ANESTHESIA: Local DIAGNOSIS: Plantar fasciitis [M72.2] PROCEDURE: Procedure(s): FASCIOTOMY FOOT AND/OR TOE (Right) Subjective CHIEF COMPLAINT: Right heel pain HPI: This is a 60 year old female who presents with history of right heel pain due to plantar fasciitis for last 2 years, pain is located only in heel and described as dull ache rated 4-8 out 10, some relief with NSAIDS, worse with a lot of physical activity. PROBLEMS WITH ANESTHESIA: no history of adverse anesthetic event FAMILY PROBLEMS WITH ANESTHESIA: no history of adverse anesthetic event METS: Participate in strenuous sport, such as swimming, singles tennis, football, basketball, or skiing (7.50 METs) FUNCTIONAL STATUS: Independent PAST MEDICAL HISTORY Diagnosis Date - ASD (atrial septal defect) repaired at [facility] at age 27 - Heel spur - HTN (hypertension) - Hypothyroid levothyroxine 75 mcg - Menopausal state - (normal spontaneous vaginal delivery) 1987, 1989, 1993 1987: 8'12; 1989 9'3; 1993: 9'1 - Pap smear for cervical cancer screening 2016 - Plantar fasciitis - Psoriasis - TIA (transient ischemic attack) 1988 during first , diagnosed ASD, repaired at [facility] after delivery PAST SURGICAL HISTORY Procedure Laterality Date - EXTENSIVE FOOT SURGERY - HEART SURGERY HX 1987 at [facility], atrial septal defect repair - LASIK Right 2001 - PAST SURGICAL HISTORY OF 2018 laser surg, greater and lesser saphenous veins - REMOVAL SPLEEN, TOTAL 1969 traumatic - SCRN COLONOSCOP 2013 10 yr f/u - SKIN BIOPSY HX benign - TOE SURGERY HX 2012 tendon repairs due to step into groundhog hole, second surgery due to atrophic changes - TONSILLECTOMY HX 1975 FAMILY HISTORY Problem Relation Age of Onset [...] 29 - Hearing Loss Son age 25 Social History Tobacco Use - Smoking status: Former Smoker Packs/day: 0.25 Years: 4.00 Pack years: 1.00 Types: Cigarettes Start date: 10/16/1975 Quit date: 10/16/1979 Years since quittin.2 - Smokeless tobacco: Never Used - Tobacco comment: 4-5 cigarettes/day Substance Use Topics - Alcohol use: Yes Alcohol/week: 23.3 standard drinks Types: 14 Shots of liquor per week Comment: yessy armas - Drug use: Never Prior to Admission medications as of 12/25/20 1245 Medication Sig Last Dose Taking aspirin, enteric coated (ECOTRIN LOW STRENGTH) 81 mg EC tablet Take 1 tablet by mouth once daily. 12/25/2020 at 0630 Yes levothyroxine (SYNTHROID) 75 mcg tablet Take 75 mcg by mouth once daily. 12/25/2020 at 0630 Yes MILK THISTLE ORAL Take 1,000 mg by mouth once daily. 12/24/2020 at Unknown time Yes naproxen sodium (ALEVE) 220 mg cap Take by mouth twice daily. 12/25/2020 at 0630 Yes lisinopril-hydrochloroth iazide 10-12.5 mg per tablet Take 1 tablet by mouth once daily. 12/25/2020 at 0630 Yes metoprolol succinate XL, long acting, (TOPROL XL) 100 mg Tb24 Take by mouth. 12/24/2020 at 2000 Yes triamcinolone acetonide (KENALOG) 0.1 % cream Apply to affected area twice daily. APPLY TO AFFECTED AREA KELP ORAL Take by mouth once daily. ALLERGIES No Known Allergies COMPLETE REVIEW OF SYSTEMS: GENERAL: No weight loss, malaise or fevers RESPIRATORY: Denies SOB, wheezing or cough. CARDIOVASCULAR: Negative for chest pain, palpitations or leg swelling. No problems since ASD repair in 1987. GI: No nausea, vomiting, or diarrhea : Negative MUSCULOSKELETAL: Negative for joint pain or swelling, back pain or muscle pain, see HPI for heel. PSYCH: Negative ENDOCRINE: Hypothyroidism corrected on meds, no current symptoms. NEURO: No history of headaches, syncope, seizures, tremors or stroke. History of TIA in . 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 LUNGS: Lungs CTA, respirations unlabored. CARDIAC: RRR, No murmur, Normal S1 and S2 ABDOMEN: Bowel sounds positive, soft, non-tender, non-distended. EXTREMITIES: Moving all extremities equal, no edema or cyanosis, fingernail beds pink. 12/25/20 1235 BP: 132/67 Pulse: (more content not included)... Normal [facility] NURSING PROGon 12-25-2020 NURSING PROG HNO ID: [id number] Author: Maryanne (Rn) GAVIN Vargas Service: ? Author Type: Registered Nurse Type: Nursing Progress Note Filed: 12/25/2020 2:38 PM Note Text: Dr tejeda spoke with patient discharge instructions reviewed with patient and both verbalize understanding Normal [facility] OPERATIVE NOon 12-25-2020 OPERATIVE NO HNO ID: [id number] Author: Dean Tejeda MD Service: Family Practice Author Type: Physician Type: Operative Report Filed: 12/25/2020 2:12 PM Note Text: Percutaneous US guided Fasciotomy Right Foot operative note: PATIENT NAME: Josh Huffman AGE: [age] year old DATE OF SURGERY: December 25, 2020 INFORMED CONSENT: I verify that I personally obtained Josh Huffman's consent which was signed and saved into the [facility] electronic health record. TIMEOUT: Audible timeout was performed prior to procedure. At this time, the team confirmed the correct patient, correct procedure and correct site with laterality. The patient's allergies were reviewed. The procedure site was marked. The procedure team checked for proper functioning of devices and supplies to be used for the procedure. The procedure team reviewed the relevant diagnostic tests pertinent to the procedure. PHYSICIAN: Dean Tejeda MD LOCATION: [place], [place] PROCEDURE: Percutaneous US guided fasciotomy for right plantar fasciosis ANESTHESIA: local PREOPERATIVE DIAGNOSIS: right plantar fasciosis POSTOPERATIVE DIAGNOSIS: right plantar fasciosis PROCEDURE DESCRIPTION: The treatment area was cleaned and draped in sterile fashion. Using sterile technique, an ultrasound laptop unit with a variable frequency (13.0-6.0 MHz) linear transducer was used to successfully localize the area of pathology to be treated today. A guadalupe was placed, on the skin, at the area of maximum tenderness. Then the treatment area was cleaned and draped in sterile fashion. A 22 gauge needle was visualized under ultrasound administering 7cc of 1% Lidocaine without epinephrine, to locally anesthetize the tretment area. An 11 gauge scalpel was used to make a small puncture incision in the area of the skin wheel and an 18 g advanced toward diseased tissue, and ultrasound was utilized to visualize the needle at the target area. The microtip device was inserted into the pathologic tissue under direct ultrasound guidance, and fasciotomy was performed with use of the microtip device and degenerative tissue removed. Upon completion, gentle compression was applied to the site with sterile gauze. Adhesive strips, occlusive dressing, and compression bandage were then applied. Patient left the procedure room in satisfactory condition having tolerated the procedure well. Microtip CUTTING TIME: 2.04 ESTIMATED BLOOD LOSS: <5 ml COMPLICATIONS: none POSTOPERATIVE PLAN: 1. Keep bandages and procedure area clean and dry for 3 days. 2. May apply ice for 20 minutes as needed for discomfort. 3. Avoid submerging area in water (i.e. Swimming/Bathing/Hot Tub) for (5) days. 4. Rest today 5. Wear walking boot for (2) weeks or until seen in office 6. Start daily gentle non-weight bearing range of motion exercises on day. Patient voiced understanding of these instructions. Dean Tejeda MD 2:10 PM December 25, 2020 [facility] CNOVon 12-02-2020 CNOV Office Visit (AGHWW1 ) -------- JOSH HUFFMAN ([id number]) 1960 F Date Time Provider Department 12/02/20 8:30 AM DEAN TEJEDA [id number] During your visit today, we recorded the following information about you: Respiration Weight Height 16/minute 104.3 kg 1.753 m Dean Tejeda MD, MD 12/03/2020 9:57 AM Signed HPI: Josh Huffman is a 60 year old female whose complaint is documented in pain description below. Patient is here for right plantar fasciitis. Sent by Dr. Kumar after MRI. 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 Hx of plantar fasciitis, exercises, night splint, orthotics, electromagnetic pulse tx; offered stem cell but turned it down. Notes that her primary problem has been plantar heel pain for several years. Is frustrated by the lack of improvement, and even worsening with treatment by regional controller at outside location. Has been seen by Dr. Kumar and sent here for consideration for percutaneous fasciotomy. PAIN EVALUATION 12/02/2020 0821 Pain Level: 8 Pain Location: Heel-Right Description: Aching Duration Amount of Time: 2.5 Duration Units: Years Frequency: Continuous Intervention: Exercise;Medication PAST MEDICAL HISTORY Diagnosis Date - ASD (atrial septal defect) repaired at [facility] at age 27 - Heel spur - HTN (hypertension) - Hypothyroid levothyroxine 75 mcg - Menopausal state - (normal spontaneous vaginal delivery) 1987, 1989, 1993 1987: 8'12; 1989 9'3; 1993: 9'1 - Pap smear for cervical cancer screening 2016 - Plantar fasciitis - Psoriasis - TIA (transient ischemic attack) 1987 during first , diagnosed ASD, repaired at [facility] after delivery PAST SURGICAL HISTORY Procedure Laterality Date - EXTENSIVE FOOT SURGERY - HEART SURGERY HX 1987 at [facility], atrial septal defect repair - LASIK Right [...] cap Take by mouth twice daily. - lisinopril-hydrochloroth iazide 10-12.5 mg per tablet Take 1 tablet [...] following treatments with patient today: Surgeries, including risks/benefits/recoverie s ? Discussed risks/benefits/alternati ves including but not limited to tendo/fascia rupture, infection at operative site, joint infection, lack of success. Patient accepts risk and wishes to proceed. Consent form signed ? Patient signed consent today for procedure ? Will call to set up PCUST Return for By phone with executive secretary for scheduling for percutaneous fasciotomy. Part of this note has been created using voice recognition software. It may con (more content not included)... Normal [facility] CNPNon 12-02-2020 CNPN Telephone (AGPOB1) -------- JOSH HUFFMAN ([id number]) 1960 F Date Time Provider Department 12/02/20 GARY KUMAR [id number] During your visit today, we recorded the following information about you: Nallely Diaz 12/02/2020 2:53 PM Signed Called Liliane Ragsdale's office to make sure they got signed medical release which they did. They said they have no records on this patient any longer since she has not been seen since 2009 and all of those records have been destroyed. I did inform Dr. Kumar of this. Allergies As of Date: 12/02/2020 (No Known Allergies) Date Reviewed: 12/02/2020 Reviewed by: Dean Tejeda MD - Fully Assessed Reason for Visit: Release Of Medical Records [2017] Prescriptions as of 12/02/2020 Sig: ASPIRIN 81 MG TABLET,DELAYED * Take 1 tablet by mouth once d* LEVOTHYROXINE 75 MCG TABLET Take 75 mcg by mouth once etelvina* TRIAMCINOLONE ACETONIDE 0.1 %* Apply to affected area twice * KELP ORAL Take by mouth once daily. MILK THISTLE ORAL Take 1,000 mg by mouth once d* NAPROXEN SODIUM 220 MG CAPSULE Take by mouth twice daily. * LISINOPRIL 10 MG-HYDROCHLOROT* Take 1 tablet by mouth once d* * METOPROLOL SUCCINATE ER 100 M* Take by mouth. Problem List As Of Date 12/02/2020 Noted Resolved Hypothyroid [E03.9] More... Psoriasis [L40.9] (normal spontaneous vaginal delivery) [O80] Menopausal state [N95.1] HTN (hypertension) [I10] Pap smear for cervical cancer screening [Z12.4] 2015 Foot pain [M79.673] More... Heel spur [M77.30] Plantar fasciitis [M72.2] ASD (atrial septal defect) [Q21.1] More... TIA (transient ischemic attack) [G45.9] 1987 More... Encounter Status:Closed by NALLELY DIAZ on 12/02/20 [facility] CNOVon 11-26-2020 CNOV Office Visit (AGHWG1 ) -------- JOSH HUFFMAN ([id number]) 1960 F Date Time Provider Department 11/26/20 10:30 AM GARY KUMAR [id number] During your visit today, we recorded the following information about you: Respiration Weight Height 16/minute 104.8 kg 1.753 m Melissa Ballard 11/26/2020 3:14 PM Signed REVIEW OF SYSTEMS: GENERAL: Well developed, well nourished. No acute distress PAIN: right ankle pain CARDIOVASCULAR: Negative for chest pain, leg swelling and palpations. MSK: Negative for joint swelling SKIN: Negative for lesions, rash, itching, metal sensitivity NEURO: Negative for seizure, trauma, numbness/tingling of extremities. ENDOCRINE: Negative for diabetic associated symptoms HEMATOLOGY: Negative for excessive bleeding, clots, bleeding disorders. Gary Kumar DPM 11/26/2020 3:14 PM Signed CC: Right heel pain and ankle pain [...] treatment as included: multiple conservative treatments including qrae-bms-qnkefvc and custom foot orthotics, supportive shoe gear, stretching exercises, boot immobilization, night splint, physical therapy as well as electromagnetic pulse treatments with little improvements of her symptoms. PMH PAST MEDICAL HISTORY Diagnosis Date - ASD (atrial septal defect) repaired at [facility] at age 27 - Heel spur - HTN (hypertension) - Hypothyroid levothyroxine 75 mcg - Menopausal state - (normal spontaneous vaginal delivery) 1987, 1989, 1993 1987: 8'12; 1989 9'3; 1993: 9'1 - Pap smear for cervical cancer screening 2016 - Plantar fasciitis - Psoriasis - TIA (transient ischemic attack) 1987 during first , diagnosed ASD, repaired at [facility] after delivery MEDS Current Outpatient Medications Medication [...] cap Take by mouth twice daily. - lisinopril-hydrochloroth iazide 10-12.5 mg per tablet Take 1 tablet [...] mood. Resp 16 Ht 175.3 cm (5' 9) Wt 104.8 kg (231 lb) BMI 34.11 [...] signs of Garcia's nerve entrapment. Negative straight (more content not included)... Normal [facility] MRI ANKLE WO IVCON RTon 02-0 MRI ANKLE WO IVCON RT Final Report DATE OF EXAM: Nov 19 2020 3:27PM [facility] [id number] - MRI ANKLE WO IVCON RT / PROCEDURE REASON: multiple diagnoses Physician Interpretation MRI RIGHT ANKLE CLINICAL INDICATION: Right ankle pain. Plantar fasciitis. Suspected peroneal tendon subluxation/dislocation. COMPARISON: MRI right ankle from outside institution 02/19/2019. Radiographs right foot right ankle 11/19/2019 TECHNIQUE: Sagittal, axial and coronal T1, sagittal STIR, axial and coronal fat-saturated PD sequences of the right ankle. FINDINGS: No discontinuity or defect involving the peroneal retinaculum. Peroneus longus and brevis tendons appear normal. Anterior and posterior tibiofibular syndesmotic ligaments are intact. Anterior talofibular ligament is not clearly visualized and is likely remotely torn. Deltoid ligament appears intact. There is mild thickening of the distal posterior tibial tendon suggesting mild tendinosis. Flexor digitorum longus and flexor hallucis longus tendons appear normal. Trace fluid distention of the posterior tibial tendon sheath may indicate mild tenosynovitis. Anterior tibial, extensor hallucis longus and extensor digitorum longus tendons appear normal. Tibiotalar joint is maintained. No osteochondral lesion. No joint effusion. Mild subtalar osteoarthritis with subchondral cyst formation and reactive marrow edema at the middle facet. 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 Mild degenerative spurring at the talonavicular, first and fourth tarsometatarsal joints. Lisfranc ligament is intact. Achilles tendon is within normal limits. A plantar calcaneal spur is noted. Mild thickening of the medial cord of the plantar fascial compatible with mild plantar fasciitis. No plantar fascial tear. Lateral cord is normal. Cluster of varicose veins are present at the dorsomedial aspect of the distal leg, unchanged. Mild subcutaneous edema of the ankle and hindfoot. IMPRESSION: 1. Peroneus longus and brevis tendons appear normal. No evidence of a peroneal retinacular tear. 2. Subtalar osteoarthritis with subchondral cyst formation and reactive marrow edema at the middle facet, not significantly changed. 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 3. Mild tendinosis of the distal posterior tibial tendon with mild tenosynovitis, not significantly changed. 4. Mild plantar fasciitis without evidence of tear. 5. The anterior talofibular ligament is not clearly visualized and is suspected to be remotely torn. Occupational Therapy Technician: PSCB Transcribe Date/Time: Nov 20 2020 7:54A Dictated by : ISAMAR FITZPATRICK MD This examination was interpreted and the report reviewed and electronically signed by: ISAMAR FITZPATRICK MD on Nov 20 2020 8:11AM EST Normal [facility] CNOVon 11-05-2020 CNOV Office Visit (AGHWG1 ) -------- JOSH HUFFMAN ([id number]) 1960 F Date Time Provider Department 11/05/20 9:30 AM GARY KUMAR [id number] During your visit today, we recorded the following information about you: Respiration Weight Height 16/minute 104.8 kg 1.753 m Melissa Ballard 11/05/2020 10:36 AM Signed REVIEW OF SYSTEMS: GENERAL: Well developed, well nourished. No acute distress PAIN: right heel pain CARDIOVASCULAR: Negative for chest pain, leg swelling and palpations. MSK: Negative for joint swelling SKIN: Negative for lesions, rash, itching, metal sensitivity NEURO: Negative for seizure, trauma, numbness/tingling of extremities. ENDOCRINE: Negative for diabetic associated symptoms HEMATOLOGY: Negative for excessive bleeding, clots, bleeding disorders. Gary Kumar DPM 11/05/2020 10:36 AM Signed CC: Right heel pain and ankle pain [...] to have tried multiple conservative treatments including hczz-hej-jntmfgi and custom foot orthotics, supportive shoe gear, [...] that currently, she has been using the uojw-ugc-eivthsc inserts and stretching exercises. Notes that the [...] - ASD (atrial septal defect) repaired at [facility] at age 27 - Heel spur - HTN (hypertension) - Hypothyroid levothyroxine 75 mcg - Menopausal state - (normal spontaneous vaginal delivery) 1987, 1989, 1993 1987: 8'12; 1989 9'3; 1993: 9'1 - Pap smear for cervical cancer screening 2015 - Plantar fasciitis - Psoriasis - TIA (transient ischemic attack) 1987 during first , diagnosed ASD, repaired at [facility] after delivery MEDS Current Outpatient Medications Medication [...] cap Take by mouth twice daily. - lisinopril-hydrochloroth iazide 10-12.5 mg per tablet Take 1 tablet [...] tobacco: Never Used - Tobacco comment: 4-5 cigarettes/ (more content not included)... Normal [facility] Clinical Lists Update: Prelo ad Extendedon 05-02-2019 Tobacco smoking status NHIS Tobacco smoking status NHIS [facility] Work Phone: Clinical Summary: HMSPatient IDon 05-02-2019 OOP [facility] Work Phone: Office Visit: New - 1st visi t with practice, Rm: 05-02-2019 NEGATED: Highlighted rowMRI (magnetic resonance imaging) history of the right foot on 03/2019 at Outside Facility [facility] Work Phone: Clinical Summary: Scanned Hi story Summaryon 05-01-2019 adl form etoh alcohol performance liquor [facility] Work Phone: Beta HCG ( test) Ql (U) 2 or more times per year [facility] Work Phone: comments about allergies None [facility] Work Phone: consumes three or more drinks of alcohol (beer, wine, liquor) daily or almost daily 2 drinks per day [facility] Work Phone: Data entered by patient exercise frequency 3 days per week [facility] Work Phone: Data entered by patient exercise type swimming [facility] Work Phone: data entered by patient, alcohol (ethanol or ETOH) use Yes [facility] Work Phone: Data entered by patient, allergy list I don't have any Drug AllergiesI don't have any Environmental AllergiesI don't have any Food Allergies [facility] Work Phone: data entered by patient, drug (of abuse) use No [facility] Work Phone: data entered by patient, Employer Name employed [facility] Work Phone: data entered by patient, exercise history Yes [facility] Work Phone: data entered by patient, father's medical history CancerHeart diseaseHigh blood pressure [facility] Work Phone: Data entered by patient, history of past surgeries Foot surgeryHeart cathTonsillectomy [facility] Work Phone: Data entered by patient, medication list aspirin-81 en-1-tqlqsxhficjzuvl-10 - 12.5 ni-5-guxhowafxhsjkns succinate-100 ss-6-tvcgspwnohfslqbfkh- 75 Qfx-8-Hemltjgdk-33 au-4-Jzodqhmnzqmacpbh-10 00 ae-4-Rsmhrzinao-220 mg-1-Twice Daily [facility] Work Phone: data entered by patient, mother's medical history ArthritisHeart diseaseHigh blood pressure [facility] Work Phone: data entered by patient, past medical history High blood pressureHypothyroidism [facility] Work Phone: data entered by patient, social history, current smoker former smoker [facility] Work Phone: data entered by patient, social history, former smoker 1985 [facility] Work Phone: data entered by patient, social history, marital status [facility] Work Phone: Exercise vein comment Was walking an average of 4 miles per day (maybe 4 days a week) at a medium pace until around August 2018 when my right foot began to hurt. [facility] Work Phone: father of patient is alive or [facility] Work Phone: father's medical history, comments prostate cancer spread to bone cancer. in 1998 (77 years old) of cancer complications [facility] Work Phone: Housing Type: apartment, house, long term, trailer, none house [facility] Work Phone: housing unit size (asthma environmental history, housing) (from single family to don't know) 2 floors [facility] Work Phone: medical history of patient's brother(s) AlcoholismObesity [facility] Work Phone: medical history of patient's brother(s), comments 59 years old. Is in a halfway with sever alcohol dementia. [facility] Work Phone: medical history of patient's sister CancerMelanoma [facility] Work Phone: medical history of patient's sister, comments Malignant melanoma removed in 1992. Cancer free since then. 61 years old. [facility] Work Phone: mother of patient is alive or Alive [facility] Work Phone: mother's medical history, comments Heart attack in 1997. Pacemaker inserted 2016. She is 89 years old [facility] Work Phone: Number of dependent children No [facility] Work Phone: Other housed specified Second Floor of the house was where the three son's of ours grew up. We pretty much live on just the main floor now. [facility] Work Phone: Web entered surgical history comments Splenectomy (1969). Open heart surgery to close an atrial septal defect (1987). Laser surgery on greater and lesser saphenous veins (2017). [facility] Work Phone: Vital Signs Date Time Vital Sign Value Performing Clinician Facility 12-17-2024 13:23-0500 Body height 175.3 cm David Hull MD Work Phone: [facility] 12-17-2024 13:23-0500 Body mass index (BMI) [Ratio] 32.44 kg/m2 David Hull MD Work Phone: [facility] 12-17-2024 13:23-0500 Body temperature 98.2 [degF] David Hull MD Work Phone: [facility] 12-17-2024 13:23-0500 Body weight 99.7 kg David Hull MD Work Phone: [facility] 12-17-2024 13:23-0500 Diastolic blood pressure 76 mm[Hg] David Hull MD Work Phone: [facility] 12-17-2024 13:23-0500 Heart rate 66 /min David Hull MD Work Phone: [facility] 12-17-2024 13:23-0500 Systolic blood pressure 112 mm[Hg] David Hull MD Work Phone: [facility] 12-17-2024 08:18-0500 Body height 175.3 cm Leon Alvarado DO Work Phone: [facility] 12-17-2024 08:18-0500 Body mass index (BMI) [Ratio] 32.44 kg/m2 Leon Alvarado DO Work Phone: [facility] 12-17-2024 08:18-0500 Body weight 99.66 kg Leon Alvarado DO Work Phone: [facility] 01-24-2024 09:27-0400 Body height 175.3 cm [facility] 01-24-2024 09:27-0400 Body weight 99.34 kg [facility] 01-24-2024 09:27-0400 Respiratory rate 16 /min [facility] 09-11-2023 12:59-0500 Body height 175.3 cm Ashley Abarca MD Work Phone: [facility] 09-11-2023 12:59-0500 Body temperature 96.4 [degF] Ashley Abarca MD Work Phone: [facility] 09-11-2023 12:59-0500 Body weight 99.79 kg Ashley Abarca MD Work Phone: [facility] 09-11-2023 12:59-0500 Diastolic blood pressure 87 mm[Hg] Ashley Abarca MD Work Phone: [facility] 09-11-2023 12:59-0500 Heart rate 65 /min Ashley Abarca MD Work Phone: [facility] 09-11-2023 12:59-0500 Respiratory rate 12 /min Ashley Abarca MD Work Phone: [facility] 09-11-2023 12:59-0500 Systolic blood pressure 166 mm[Hg] Ashley Abarca MD Work Phone: [facility] 08-01-2023 10:05-0400 Diastolic blood pressure 85 mm[Hg] Allan Partida MD Work Phone: [facility] 08-01-2023 10:05-0400 Heart rate 80 /min Allan Partida MD Work Phone: [facility] 08-01-2023 10:05-0400 Systolic blood pressure 128 mm[Hg] Allan Partida MD Work Phone: [facility] 08-01-2023 09:57-0400 Body height 175.3 cm Allan Partida MD Work Phone: [facility] 08-01-2023 09:57-0400 Body temperature 97.7 [degF] Allan Partida MD Work Phone: [facility] 08-01-2023 09:57-0400 Body weight 98.1 kg Allan Partida MD Work Phone: [facility] 08-01-2023 08:26-0400 Body height 175.3 cm Leon Mathiskop DO Work Phone: [facility] 08-01-2023 08:26-0400 Body weight 98.07 kg Leon Mathiskop DO Work Phone: [facility] NEGATED: Highlighted [id number] 09:35-0400 BMI (Body Mass Index) 33.2 kg/m2 Nubia Jeter [employer] [facility] Work Phone: NEGATED: Highlighted [id number] 09:35-0400 Body weight 101.61 kg Nubia Jeter [employer] [facility] Work Phone: NEGATED: Highlighted [id number] 09:35-0400 Body weight 102 kg Nubia Jeter [employer] [facility] Work Phone: NEGATED: Highlighted [id number] 09:35-0400 BP Diastolic 89 mm[Hg] Nubia Jeter [employer] [facility] Work Phone: NEGATED: Highlighted [id number] 09:35-0400 BP Diastolic 99 mm[Hg] Nubia Jeter [employer] HEL[employer] [facility] Work Phone: NEGATED: Highlighted [id number] 09:35-0400 BP Systolic 161 mm[Hg] Nubia Jeter [employer] [facility] Work Phone: NEGATED: Highlighted [id number] 09:35-0400 BP Systolic 155 mm[Hg] Nubia Jeter LPN [facility] Work Phone: NEGATED: Highlighted [id number] 09:35-0400 Heart rate 2+ Nubia Jeter LPN [facility] Work Phone: NEGATED: Highlighted [id number] 09:35-0400 Height 175.26 cm Nubia Jeter LPN [facility] Work Phone: NEGATED: Highlighted [id number] 09:35-0400 Height 175 cm Nubia Jeter LPN [facility] Work Phone: NEGATED: Highlighted [id number] 09:35-0400 Pulse (Heart Rate) 54 /min Nubia Jeter [facility] Work Phone: Encounters Encounter Date Encounter Type Care Provider Facility Start: 12-17-2024 End: 12-17-2024 Subsequent hospital visit by physician Ct 2 Main Qb (I-Stat) Radiology Comment on above: Encounter for screen ing for cardiovascular disorders [Z13.6] Start: 12-17-2024 End: 12-17-2024 Patient encounter procedure Yard Spotter Work Phone: Internal Medicine Comment on above: Nutrition Assessment ; Patient Education Need for influenza v accination (Primary Dx); Need for vaccination; Routine general medical examination at a health care facility; Elevated Lp(a) Routine general medi deirdre examination at a health care facility (Primary Dx) Start: 12-17-2024 End: 12-17-2024 Subsequent hospital visit by physician Clinic Imaging Mammo Main Mammography Start: 12-17-2024 End: 12-17-2024 Patient encounter status David Hull MD Work Phone: [facility] Work Phone: Start: 12-17-2024 End: 12-17-2024 Subsequent hospital visit by physician Bone Density Main A21 2 Radiology Comment on above: Routine general medi deirdre examination at a health care facility [Z00.00] Start: 12-17-2024 Encounter for genera l adult medical examination without abnormal findings COURTNEY COCHRAN [facility] Start: 12-17-2024 Encounter for other specified special examinations COURTNEY COCHRAN [facility] Start: 12-17-2024 End: 12-17-2024 ambulatory Yard Spotter Work Phone: Internal Medicine Start: 11-18-2024 End: 11-19-2024 Telephone encounter David Hull MD Work Phone: Internal Medicine Comment on above: Nurse Triage Call ([employer] 12/17) Start: 11-14-2024 End: 11-15-2024 Refill Courtney Cochran PA-C Work Phone: Orthopaedics Comment on above: Refill Request Start: 10-21-2024 End: 10-21-2024 ambulatory [facility] Facility:[facility] Start: 10-21-2024 End: 10-21-2024 ambulatory [facility] Facility:[facility] Start: 09-18-2024 End: 09-18-2024 ambulatory [facility] Facility:[facility] Start: 09-16-2024 End: 09-16-2024 [facility] Facility:[facility] Start: 09-01-2024 End: 09-02-2024 Refill Avi Dobbins MD Work Phone: Orthopaedics Comment on above: Refill Request Start: 06-24-2024 End: 06-24-2024 ambulatory AVI DOBBINS Facility:[facility] Start: 06-24-2024 End: 06-24-2024 Patient encounter procedure Avi Dobbins MD Work Phone: Orthopaedics Comment on above: Acute pain of right knee (Primary Dx); Primary osteoarthritis of right knee Start: 06-03-2024 End: 06-03-2024 ambulatory NUBIA SAGE Facility:[facility] Start: 06-03-2024 End: 06-03-2024 Patient encounter procedure Avi Dobbins MD Work Phone: Orthopaedics Comment on above: Acute pain of right knee (Primary Dx) Start: 03-25-2024 End: 03-25-2024 ambulatory AVI DOBBINS Facility:[facility] Start: 03-25-2024 End: 03-25-2024 Patient encounter procedure Avi Dobbins MD Work Phone: Orthopaedics Comment on above: Complex tear of medi al meniscus of right knee as current injury, subsequent encounter (Primary Dx) Start: 03-15-2024 End: 03-15-2024 ambulatory Nubia Sage Facility:[facility] Start: 02-19-2024 End: 02-19-2024 ambulatory COURTNEY COCHRAN Facility:[facility] Start: 02-19-2024 End: 02-19-2024 Patient encounter procedure Courtney Cochran PA-C Work Phone: Orthopaedics Comment on above: Complex tear of medi al meniscus of right knee as current injury, subsequent encounter (Primary Dx); Primary osteoarthritis of right knee Start: 02-07-2024 End: 02-07-2024 ambulatory AVI DOBBINS Facility:[facility] Start: 01-31-2024 End: 01-31-2024 ambulatory NUBIA SAGE Facility:[facility] Start: 01-24-2024 End: 01-24-2024 Admission to [facility] Start: 01-24-2024 End: 01-24-2024 ambulatory NUBIA SAGE Pre Anesthesia Comment on above: Pre-op evaluation (P rimary Dx); Primary hypertension; Hypothyroidism, unspecified type; Ascending aorta dilation (4.3 cm on non-contrast CT 10/2019, and on CT angiogram 07/2023); Obesity, Class I, BMI 30-34.9; ASD (atrial septal defect); TIA (transient ischemic attack); Prediabetes; Hypercholesterolemia Start: 01-24-2024 Encounter for other preprocedural examination COURTNEY COCHRAN [facility] Start: 01-24-2024 End: 01-24-2024 Preprocedural examination done [facility] Work Phone: Start: 01-23-2024 ambulatory Avi Dobbins MD Work Phone: Orthopaedic Surgery [facility] Comment on above: Insurance did not pr e-approve my knee scope Start: 01-11-2024 End: 01-11-2024 ambulatory AVI DOBBINS Facility:[facility] Start: 01-11-2024 End: 01-11-2024 Patient encounter procedure Avi Dobbins MD Work Phone: Orthopaedic Surgery [facility] Comment on above: Complex tear of medi al meniscus of right knee as current injury, subsequent encounter (Primary Dx); Primary osteoarthritis of right knee Start: 01-05-2024 End: 01-05-2024 ambulatory [facility] Work Phone: Start: 01-05-2024 End: 01-05-2024 Patient encounter procedure [facility] Start: 01-05-2024 End: 01-05-2024 ambulatory Nubia Sage Facility:[facility] Start: 12-30-2023 End: 12-30-2023 ambulatory NUBIA SAGE Facility:[facility] Start: 12-30-2023 End: 12-30-2023 Subsequent hospital visit by physician Mri 3 Radio Main Q (I-Stat/1.5t/3t) Work Phone: MRI Q Comment on above: Tear of medial menis cus of right knee, current, unspecified tear type, subsequent encounter [S83.241D] Start: 12-18-2023 End: 12-18-2023 Patient encounter procedure Avi Dobbins MD Work Phone: Orthopaedics Comment on above: Tear of medial menis cus of right knee, current, unspecified tear type, subsequent encounter (Primary Dx); Primary osteoarthritis of right knee Start: 10-17-2023 End: 10-17-2023 ambulatory [facility] Work Phone: Start: 10-17-2023 End: 10-17-2023 Patient encounter procedure [facility] Start: 09-11-2023 End: 09-11-2023 Patient encounter procedure Ashley Abarca MD Work Phone: General Surgery Comment on above: Ventral hernia witho ut obstruction or gangrene Start: 09-08-2023 End: 09-08-2023 Subsequent hospital visit by physician Ct [facility] (I-Stat) Work Phone: Cat Scan Comment on above: Ventral hernia witho ut obstruction or gangrene [K43.9] Start: 08-29-2023 Orders Only Roxi Baig APRN.LEGAL INSTRUMENTS EXAMINER Work Phone: General Surgery Comment on above: Ventral hernia witho ut obstruction or gangrene (Primary Dx) Appointment (Imaging Needed Prior to Appointment/) Start: 08-01-2023 End: 08-01-2023 Subsequent hospital visit by physician Ct 2 Main Qb (I-Stat) Radiology Comment on above: Ascending aorta dila tion (HCC) [I77.810] Start: 08-01-2023 End: 08-01-2023 ambulatory Yard Spotter Work Phone: [facility] Start: 08-01-2023 End: 08-01-2023 Nutrition therapy Yard Spotter Work Phone: Internal Medicine Comment on above: Nutrition Assessment ; Patient Education Start: 08-01-2023 End: 08-01-2023 Subsequent hospital visit by physician Orth General Xray A21 Radiology Comment on above: Primary osteoarthrit is of right knee [M17.11] Start: 08-01-2023 End: 08-01-2023 Subsequent hospital visit by physician Clinic Imaging Mammo Main Mammography Start: 08-01-2023 End: 08-01-2023 Patient encounter status Allan Partida MD Work Phone: [facility] Start: 08-01-2023 End: 08-01-2023 Hearing test abnormal Claudia Ponce AUD Work Phone: [facility] Work Phone: Start: 08-01-2023 End: 08-01-2023 Patient encounter procedure Claudia Ponce AUD Work Phone: Audiology Comment on above: Abnormal hearing pebbles t (Primary Dx) Routine general medi deirdre examination at a health care facility (Primary Dx); Hypercholesterolemia; Elevated lipoprotein(a); Hypertension; Normal coronary arteries, Coronary Calcium Score = 0 (10/2019); Ascending aorta dilation (4.3 cm on non-contrast CT 10/2019, and on CT angiogram 07/2023); Prediabetes; Obesity, Class I, BMI 30-34.9; Hypothyroidism; Vitamin D deficiency; Elevated uric acid in blood; Primary osteoarthritis of right knee; Bursitis of both hips, unspecified bursa; Ventral hernia without obstruction or gangrene; Colon cancer screening; Need for vaccination; Screening for HIV without presence of risk factors Start: 07-26-2023 Telephone encounter Allan brennan MD Work Phone: Internal Medicine Comment on above: Nurse Triage Call ( [facility]) Start: 05-19-2023 End: 05-19-2023 ambulatory [facility] Work Phone: Start: 05-19-2023 End: 05-19-2023 Patient encounter procedure [facility] Start: 01-26-2023 End: 01-26-2023 Patient encounter procedure [facility] Start: 08-24-2022 End: 08-24-2022 ambulatory [facility] Work Phone: Start: 08-24-2022 End: 08-24-2022 Patient encounter procedure [facility] Start: 07-20-2022 End: 07-20-2022 ambulatory [facility] Work Phone: Start: 07-20-2022 End: 07-20-2022 Patient encounter procedure [facility] Start: 04-25-2022 End: 04-25-2022 Patient encounter procedure [facility] Start: 01-11-2021 End: 01-11-2021 Patient encounter procedure JOSE MIGUEL HATHAWAY [facility] Start: 12-21-2020 End: 12-21-2020 Patient encounter procedure JOSE MIGUEL HATHAWAY [facility] Start: 05-02-2019 End: 05-02-2019 Patient encounter procedure Spencer Rodriguez MD Work Phone: [facility] Work Phone: Procedures Date Procedure Procedure Detail Performing Clinician Start: 12-17-2024 PFIZER-BIONTECH COVI D-19 VACCINE AGE 12+ YR (COMIRNATY) David Hull MD Work Phone: Start: 12-17-2024 KATE SCREENING W [facility] David Hull MD Work Phone: Start: 12-17-2024 Unlisted computed tomography procedure David Hull MD Work Phone: Start: 12-17-2024 Lipid 1996 panel - S celina or Plasma Leon Mathiskop DO Work Phone: Start: 06-24-2024 Arthrocentesis aspir &/inj major jt/bursa w/o us Avi Dobbins MD Work Phone: Start: 09-08-2023 Ct abdomen & pelvis w/o contrast material Roxi Baig APRN.CNP Work Phone: Start: 08-01-2023 Radiologic exam knee complete 4/more views Allan Partida MD Work Phone: Start: 08-01-2023 PFIZER-BIONTECH COVI D-19 VACCINE (2022- SEASON) AGE 12+ YR Allan Partida MD Work Phone: Start: 08-01-2023 RSV VACCINE, BIVALEN T (ABRYSVO) Allan Partida MD Work Phone: Start: 08-01-2023 HEARING SCREENING Frances Hawkins MA Work Phone: Start: 08-01-2023 Lipid 1996 panel - S celina or Plasma Leon Mathiskop DO Work Phone: Start: 10-31-2019 Lipid 1996 [...] Treatment Date Care Activity Detail Author Start: 12-17-2029 Lipid panel Lipid Screening [facility] Start: 08-01-2028 Lipid 1996 panel - Serum or Plasma Lipid Screening [facility] Start: 08-01-2028 Lipid panel Lipid Screening [facility] Start: 12-18-2027 Diabetes Screening Diabetes Screening [facility] Start: 01-30-2027 Diabetes Screening Diabetes Screening [facility] Start: 10-17-2026 Screening for malignant neoplasm of colon [facility] Start: 08-01-2026 Diabetes Screening Diabetes Screening [facility] Start: 05-19-2026 Urine microalbumin profile DTaP,Tdap,Td Vaccine (2 - Td or Tdap) [facility] Start: 12-17-2025 BP Controlled (<130/80) BP Controlled (<130/80) [facility] Start: 06-19-2025 Covid-19 Vaccine () Covid-19 Vaccine () [facility] Start: 12-17-2024 End: 12-17-2024 Patient encounter procedure 12/17/2024 1:30 PM EST Appointment Radiology [address] [address] Exec Hold Bill Radiology Comment on above: Exec Hold Bill Start: 12-17-2024 Subsequent hospital visit by physician 12/17/2024 12:04 PM EST Hospital Encounter Radiology [address] [place] [id number] Encounter for screening for cardiovascular disorders [Z13.6] Radiology Comment on above: Encounter for screening for cardiovascul ar disorders [Z13.6] Start: 12-17-2024 End: 12-17-2024 Patient encounter procedure Internal Medicine Comment on above: Exec Hold Bill Start: 12-17-2024 End: 12-17-2024 Patient encounter procedure Radiology Comment on above: Exec Hold Bill PE Start: 12-17-2024 End: 12-17-2024 Nursing evaluation of patient and report 12/17/2024 8:45 AM EST Nurse Visit Internal Medicine [address] [address] [address], Bp [facility] Preventive [address] [place] [address] Exec Hold Bill Internal Medicine Comment on above: Exec Hold Bill Start: 12-17-2024 End: 12-17-2024 ambulatory 12/17/2024 7:45 AM EST Results Only [place] [id number] Draw Station [address] [address] Exec Hold Bill [facility] A15 Draw Station Comment on above: Exec Hold Bill Start: 12-17-2024 End: 12-17-2024 Patient encounter procedure Internal Medicine Comment on above: chapis Exec Hold Bill Transformer Mechanic Karissa Arrived Start: 10-31-2024 Lipid 1996 panel - Serum or Plasma Lipid Screening [facility] Start: 10-16-2024 Advance Directive Discussion Advance Directive Discussion [facility] Start: 06-24-2024 End: 06-24-2024 Patient encounter procedure 06/24/2024 10:15 AM EDT Office Visit Orthopaedics [address] [place] [address] Avi Dobbins MD [address] [place] [address] follow up re: cortisone injectio Orthopaedics Comment on above: follow up re: cortisone injectio Start: 06-16-2024 Covid-19 Vaccine () Covid-19 Vaccine () [facility] Start: 06-16-2024 Covid-19 Vaccine () Covid-19 Vaccine () [facility] Start: 06-16-2024 Influenza vaccination Influenza Vaccine (#1) [facility] Start: 03-25-2024 End: 03-25-2024 Patient encounter procedure 03/25/2024 1:45 PM EDT Office Visit Orthopaedics [address] [place] [address] Avi Dobbins MD [address] [facility] [place] [address] Post op right knee arthroscopic medial menisectomy with chondroplasty Orthopaedics Comment on above: Post op right knee arthroscopic medial m enisectomy with chondroplasty Start: 01-23-2024 End: 04-23-2024 Basic metabolic 2000 panel - Serum or Plasma BASIC METABOLIC PNL Lab Routine Pre-op evaluation Primary hypertension Hypothyroidism, unspecified type Ascending aorta dilation (4.3 cm on non-contrast CT 10/2019, and on CT angiogram 07/2023) Obesity, Class I, BMI 30-34.9 ASD (atrial septal defect) TIA (transient ischemic attack) Prediabetes Hypercholesterolemia Expected: 01/23/2024, Expires: 04/23/2024 [facility] Work Phone: Comment on above: Expected: 01/23/2024, Expires: Start: 12-02-2023 Covid-19 Vaccine () Covid-19 Vaccine () [facility] Start: 10-16-2023 Advance Directive Discussion Advance Directive Discussion [facility] Start: 10-16-2023 Behavioral Health Screening Behavioral Health Screening [facility] Start: 10-16-2023 Depression Assessment Depression Assessment [facility] Start: 06-16-2023 Covid-19 Vaccine () Covid-19 Vaccine () [facility] Start: 06-16-2023 Covid-19 Vaccine () Covid-19 Vaccine () [facility] Start: 06-16-2023 Influenza vaccination Influenza Vaccine (#1) [facility] Start: 2023 Advance Directive Discussion Advance Directive Discussion [facility] Start: 2023 Bone Density Screening Bone Density Screening [facility] Start: 2023 Pneumococcal Vaccine: 65+ (3 - PPSV23 or PCV20) Pneumococcal Vaccine: 65+ (3 - PPSV23 or PCV20) [facility] Start: 10-31-2022 Diabetes Screening Diabetes Screening [facility] Start: 10-16-2022 Depression Assessment Depression Assessment [facility] Start: 07-23-2022 Colonoscopy Colonoscopy [facility] Start: 07-23-2022 Colorectal Cancer Screening Colorectal Cancer Screening [facility] Start: 10-31-2020 Mammography Mammogram Screening [facility] Start: 10-31-2020 Screening for malignant neoplasm of breast Mammogram Screening [facility] Start: 05-02-2019 End: 05-02-2019 Appointment Appointment [facility] Work Phone: Start: 2018 RSV Vaccine (1 - 1-dose 60+ series) RSV Vaccine (1 - 1-dose 60+ series) [facility] Start: 07-23-2013 Colonoscopy Colonoscopy [facility] Start: 07-23-2013 Colorectal Cancer Screening Colorectal Cancer Screening [facility] Start: 07-23-2013 Screening for malignant neoplasm of colon Colonoscopy [facility] Start: 2008 Shingrix Vaccine (1 of 2) Shingrix Vaccine (1 of 2) [facility] Start: 2003 Cologuard (FIT-DNA) Cologuard (FIT-DNA) [facility] Start: [address] COLONOGRAPHY [facility] Start: 2003 Fecal Occult Blood Fecal Occult Blood [facility] Start: 2003 Screening for malignant neoplasm of colon [facility] Start: 2003 SIGMOIDOSCOPY SIGMOIDOSCOPY [facility] Start: 1976 Annual PCP Team Chronic Disease Visit Annual PCP Team Chronic Disease Visit [facility] Start: 1976 Anxiety Screening Anxiety Screening [facility] Start: 1976 BP Controlled (<130/80) BP Controlled (<130/80) [facility] Start: 1976 Depression Screening Depression Screening [facility] Start: 1976 HIV Screening HIV Screening [facility] BD DXA TRABECULAR JESSICA NE SCORE (TBS) BD DXA TRABECULAR BONE SCORE (TBS) Radiology Routine Routine general medical examination at a [facility] care facility 12/17/2024 9:32 AM EST [facility] COLOGUARD COLOGUARD Lab Ro utine Colon cancer screening Ordered: 08/01/2023 [facility] Work Phone: Comment on above: Ordered: 08/01/2023 End: 09-27-2024 Ct abdomen & pelvis w/o contrast material CT ABD/PEL WO IVCON Radiology Routine Ventral hernia without obstruction or gangrene 1 Occurrences starting 08/29/2023 until 09/27/2024 [facility] Work Phone: Comment on above: 1 Occurrences starting 08/29/2023 until 09/27/2024 End: 08-24-2024 Ct angiography chest w/contrast/noncontrast CTA CHEST (GATED) W IVCON Radiology Routine Ascending aorta dilation (HCC) 1 Occurrences starting 07/26/2023 until 08/24/2024 [facility] Work Phone: Comment on above: 1 Occurrences starting 07/26/2023 until 08/24/2024 Ct angiography chest w/contrast/noncontrast CTA CHEST (GATED) W IVCON Radiology Routine Ascending aorta dilation (HCC) 08/01/2023 4:21 PM EDT [facility] Work Phone: DXA Skeletal system.axial Views for bone density DXA-AXIAL SKELETON Radiology Routine Routine general medical examination at a health care facility 12/17/2024 9:32 AM EST [facility] Work Phone: End: 08-01-2023 KATE SCREENING W [facility] Work Phone: Comment on above: ONCE for 1 Occurrences starting 08/01/20 until 08/01/2023 End: 01-16-2025 MR Knee - right WO contrast MRI KNEE WO IVCON RIGHT Radiology Routine Tear of medial meniscus of right knee, current, unspecified tear type, subsequent encounter Primary osteoarthritis of right knee 1 Occurrences starting 12/18/2023 until 01/16/2025 [facility] Work Phone: Comment on above: 1 Occurrences starting 12/18/2023 until 01/16/2025 MR Knee - right WO contrast MRI KNEE WO IVCON RIGHT Radiology Routine Tear of medial meniscus of right knee, current, unspecified tear type, subsequent encounter Primary osteoarthritis of right knee 12/30/2023 1:26 PM EDT [facility] Work Phone: Patient Education \cps-sql1\CPS_ PtEducation\ht n.pdf [facility] Work Phone: [facility] Immunizations Immunization Date Immunization Notes Care Provider Fa [facility] 12-17-2024 COVID-19 vaccine, ag e 12+ yr (PFIZER-BIONTECH COMIRNATY) David Hull MD Work Phone: [facility] 12-17-2024 influenza, high dose seasonal, preservative-free David Hull MD Work Phone: [facility] 08-01-2023 COVID-19 vaccine, ag e 12+ yr, 2022- season (PFIZER-BIONTECH) Claudia BORGES Work Phone: [facility] 08-01-2023 pneumococcal (PCV20) vaccine, 20 valent (PREVNAR 20) Claudia BORGES Work Phone: [facility] 08-01-2023 respiratory syncytia l virus (RSV) vaccine, bivalent (ABRYSVO) Claudia Kris AUD Work Phone: [facility] 08-01-2023 pneumococcal Conjuga te, unspecified formulation Allan Partida MD Work Phone: [facility] Work Phone: 07-27-2023 influenza, injectabl e, quadrivalent, contains preservative Leon Christiano DO Work Phone: [facility] Work Phone: 07-27-2023 influenza virus vacc ine, unspecified formulation Avi Dobbins MD Work Phone: [facility] 07-13-2020 zoster vaccine recombinant Leon Christiano DO Work Phone: [facility] 12-24-2019 zoster vaccine recombinant Leon Christiano DO Work Phone: [facility] 12-17-2019 meningococcal B vacc ine, fully recombinant Leon Christiano DO Work Phone: [facility] 12-17-2019 meningococcal oligosaccharide (groups A, C, Y and W-135) diphtheria toxoid conjugate vaccine (MCV4O) Leon Ortizp DO Work Phone: [facility] 07-16-2019 influenza, injectabl e, quadrivalent, contains preservative Allan Partida MD Work Phone: [facility] 07-16-2019 influenza virus vacc ine, unspecified formulation Allan Partida MD Work Phone: [facility] 05-19-2016 pneumococcal conjuga te vaccine, 13 valent Allan Partida MD Work Phone: [facility] 05-19-2016 tetanus toxoid, redu benny diphtheria toxoid, and acellular pertussis vaccine, adsorbed Allan Partida MD Work Phone: [facility] 10-21-2009 novel influenza-H1N1 -09, preservative-free, injectable Leon Christiano DO Work Phone: [facility] 10-05-1999 pneumococcal polysaccharide vaccine, 23 jessica Partida MD Work Phone: [facility] Payers Date Payer Category Payer Self-pay [id number] 2020 Private Health Insurance KARINA العراقي OAP [id number] 2020-Present [phone] [facility] [id number] [place] [address] Open Access [id number] 2020 Private Health Insurance [id number] Unknown [id number] Unknown [id number] Unknown [id number] Unknown [id number] Unknown [id number] Unknown [id number] Unknown [id number] Social History Date Type Detail Facility Start: 05-02-2019 End: 05-02-2019 Assertion Unknown if ever smoked [facility] Work Phone: Start: 1960 Sex Assigned At Female W [facility] Start: 10-31-2019 End: 06-24-2024 Tobacco smoking status NHIS Ex-smoker [facility] Work Phone: Start: 10-16-1975 End: 10-16-1979 History of tobacco use Current smoker [facility] Work Phone: Start: 10-16-1975 End: 10-16-1979 History of tobacco use Cigarette Smoker [facility] Work Phone: Start: 10-31-2019 End: 08-01-2023 Cigarettes smoked current (pack per day) - Reported 0.3 [facility] Start: 10-31-2019 End: 06-24-2024 Tobacco use and exposure Smokeless tobacco non-user [facility] Work Phone: Start: 12-08-2021 End: 01-11-2024 Alcohol intake Current drinker of alcohol (finding) [facility] Start: 12-08-2021 End: 08-01-2023 Tobacco use panel [facility] Adult Depression Screening Assessment 0 [facility] Start: 10-31-2019 Tobacco Comment 4-5 cigarettes/day [facility] Start: 10-31-2019 Alcohol Comment scotha [facility] Start: 11-04-2020 Gender identity Identifies as female gender (finding) [facility] Start: 11-04-2020 Sexual orientation Heterosexual (fin ding) [facility] Start: 08-01-2023 Alcohol Comment 2 glasses of s cotch nightly [facility] Start: 01-24-2024 End: 12-17-2024 Alcohol intake Ex-drinker (finding) [facility] Start: 01-24-2024 Alcohol Comment currently not drinki [facility] NEGATED: Highlighted rowStart: 05-02-2019 End: 05-02-2019 Employment detail Employment detail [facility] Work Phone: Clinical Notes 11-05-2020 to 12-25-2024 Tejas Garrido, Licensed Funeral Director And Embalmer - 12/25/2024 10:33 AM David Pereira MD - 12/17/2024 2:00 PM Tyrese Leo RN - 12/17/2024 1:13 PM Pepper Johns RT(R) - 12/17/2024 1:30 PM EST Note Date & Type Note Facility 12-25-2024 Note HNO ID: [id number] Author: TEJAS GARRIDO, Licensed Funeral Director And Embalmer Service: ? Author Type: Licensed Funeral Director And Embalmer Type: Progress Notes Filed: 12/25/2024 10:33 Note Text: [employer] Summary The information included in this report is a comprehensive overview of the components of fitness necessary to maintain a higher quality of life. Upon completion of the fitness evaluation, this information has been customized to each individual in order for the evaluated individual to understand and utilize the major components of fitness, as well as the proper guidelines for exercising in a safe and effective manner. Each program is compiled as specified to individual needs and health goals. Patient Name: Josh Clements Date: December 17, 2024 CC Number: [id number] Patients Health Rankin Patients Fitness Rankin Health Related Goals: Patients goals are to stay healthy, be more active and spend more time outside. Fitness Activity: Exercises aerobically (2 miles in treadmill at 3 mph) at 2-3 days per week. Health Limitations: 1. Coronary artery calcium score of 0 AU (10/2019, and today). 2. Hyperlipidemia with a direct LDL cholesterol of 123 mg/dL. Your goal is less than 100 mg/dL. 3. Elevated Lp(a). Lp(a) is a fraction of the LDL cholesterol that has been linked to an increased risk for cardiovascular disease and is frequently present in families with premature vascular disease. People with elevated Lp(a) cholesterol levels, particularly greater than 40, have a two to three times higher risk for future cardiovascular events. Lp(a) levels virtually doesn't change throughout your lifetime. There is not much that you can do to lower your Lp(a) levels and there is no prospective data to show that lowering Lp(a) levels results in lower risk for future cardiovascular events. The conservative approach is to get your LDL less than 100 mg/dl, with less than 70 mg/dl 4. Prediabetes with an A1c of 5.8%. 5. Ascending aorta dilation (4.5 cm). 6. Atherosclerotic plaque in the origins of both right left internal carotid arteries and distal right common carotid artery without significant stenosis. 7. Atherosclerotic plaque noted in the mid abdominal aorta. 8. Transient ischemic attack (1987; during first , diagnosed ASD, repaired at [facility] after delivery). 9. Atrial septal defect (1987; repaired at [facility] at age 27). 10. Hypertension (2013). 11. Hypothyroidism (2017). Current dose of levothyroxine is appropriate. 12. Elevated ferritin level with normal iron studies. 13. Elevated ultrasensitive CRP (5.1). This could be due to excess weight. However, CRP is a marker for inflammation and has been recognized as an independent risk factor for cardiovascular events. Aspirin has been shown to prevent future vascular events in those with elevated CRP levels. In addition, weight loss, aerobic exercise, and statin medications (e.g. Lipitor, Zocor, Pravachol) have been shown to reduce ultrasensitive CRP levels. 14. Postmenopause. 15. Psoriasis (scalp). 16. Right plantar fasciitis (treated with Tenex). 17. Vitamin D deficiency (10/2019: 19.7). Current vitamin D level is normal on replacement therapy. 18. Bilateral hip bursitis, treated with injection (11/2021). 19. Right knee osteoarthritis (11/2021). 20. Minimal bilateral high frequency hearing loss > 6000 Hz. 21. Osteoarthritis of hands. Orthopedic Limitations/ Chronic Pain: Neck Stiffness, R Knee, R Plantar Fitness Testing: See attached results for comparison of standards for age and gender. 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 Balance: Below Normal Squat Test: Normal Exercise Recommendations: Type of exercise: Frequency (week) Duration (min) Mode: Notes: Cardiovascular: Frequency should be a minimum 5-7 times per week of moderate intensity or 3-4 of vigorous intensity. 30-60 minutes Recommended examples include, but are not limited to: Running, biking, hiking, elliptical, swimming, dancing, aerobics, spinning Maintain a minimum of 150 minutes of cumulative cardiovascular exercise each week to meet [place] Heart Association Guidelines. Anything beyond ten minutes of continuous cardiovascular exercise counts towards the 150 minute goal. Resistance: Frequency should be a minimum of two times per week for each major muscle group. When isolating muscles, the frequency may need to increase. 20-30 minutes CLX Band Strength Program Safety and Effectiveness: Provide slow resistance in each direction and adapt the resistance to suit your strength capabilities. Allow for a day of rest in between sessions of the same muscle group. Do not hold your breath. Exhale during the most difficult portion of any lift. Initiate the enclosed strength training program and alter the routine every 6-12 weeks to prev (more content not included)... [facility] 12-25-2024 History of Present illness Narrative [employer] [facility] Summary The information included in this report is a comprehensive overview of the components of fitness necessary to maintain a higher quality of life. Upon completion of the fitness evaluation, this information has been customized to each individual in order for the evaluated individual to understand and utilize the major components of fitness, as well as the proper guidelines for exercising in a safe and effective manner. Each program is compiled as specified to individual needs and health goals. Patient Name: Josh Clements Date: December 17, 2024 [facility] Number: [id number] Patients Health Rankin Patients Fitness Rankin Health Related Goals: Patients goals are to stay healthy, be more active and spend more time outside. Fitness Activity: Exercises aerobically (2 miles in treadmill at 3 mph) at 2-3 days per week. Health Limitations: 1. Coronary artery calcium score of 0 AU (10/2019, and today). 2. Hyperlipidemia with a direct LDL cholesterol of 123 mg/dL. Your goal is less than 100 mg/dL. 3. Elevated Lp(a). Lp(a) is a fraction of the LDL cholesterol that has been linked to an increased risk for cardiovascular disease and is frequently present in families with premature vascular disease. People with elevated Lp(a) cholesterol levels, particularly greater than 40, have a two to three times higher risk for future cardiovascular events. Lp(a) levels virtually doesn't change throughout your lifetime. There is not much that you can do to lower your Lp(a) levels and there is no prospective data to show that lowering Lp(a) levels results in lower risk for future cardiovascular events. The conservative approach is to get your LDL less than 100 mg/dl, with less than 70 mg/dl 4. Prediabetes with an A1c of 5.8%. 5. Ascending aorta dilation (4.5 cm). 6. Atherosclerotic plaque in the origins of both right left internal carotid arteries and distal right common carotid artery without significant stenosis. 7. Atherosclerotic plaque noted in the mid abdominal aorta. 8. Transient ischemic attack (1987; during first , diagnosed ASD, repaired at [facility] after delivery). 9. Atrial septal defect (1987; repaired at [facility] at age 27). 10. Hypertension (2013). 11. Hypothyroidism (2017). Current dose of levothyroxine is appropriate. 12. Elevated ferritin level with normal iron studies. 13. Elevated ultrasensitive CRP (5.1). This could be due to excess weight. However, CRP is a marker for inflammation and has been recognized as an independent risk factor for cardiovascular events. Aspirin has been shown to prevent future vascular events in those with elevated CRP levels. In addition, weight loss, aerobic exercise, and statin medications (e.g. Lipitor, Zocor, Pravachol) have been shown to reduce ultrasensitive CRP levels. 14. Postmenopause. 15. Psoriasis (scalp). 16. Right plantar fasciitis (treated with Tenex). 17. Vitamin D deficiency (10/2019: 19.7). Current vitamin D level is normal on replacement therapy. 18. Bilateral hip bursitis, treated with injection (11/2021). 19. Right knee osteoarthritis (11/2021). 20. Minimal bilateral high frequency hearing loss > 6000 Hz. 21. Osteoarthritis of hands. Orthopedic Limitations/ Chronic Pain: Neck Stiffness, R Knee, R Plantar Fitness Testing: See attached results for comparison of standards for age and gender. 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 Balance: Below Normal Squat Test: Normal Exercise Recommendations: Type of exercise: Frequency (week) Duration (min) Mode: Notes: Cardiovascular: Frequency should be a minimum 5-7 times per week of moderate intensity or 3-4 of vigorous intensity. 30-60 minutes Recommended examples include, but are not limited to: Running, biking, hiking, elliptical, swimming, dancing, aerobics, spinning Maintain a minimum of 150 minutes of cumulative cardiovascular exercise each week to meet [place] Heart Association Guidelines. Anything beyond ten minutes of continuous cardiovascular exercise counts towards the 150 minute goal. Resistance: Frequency should be a minimum of two times per week for each major muscle group. When isolating muscles, the frequency may need to increase. 20-30 minutes CLX Band Strength Program Safety and Effectiveness: Provide slow resistance in each direction and adapt the resistance to suit your strength capabilities. Allow for a day of rest in between sessions of the same muscle group. Do not hold your breath. Exhale during the most difficult portion of any lift. Initiate the enclosed strength training program and alter the routine every 6-12 weeks to prevent muscle memory. All exercises should be performed a minimum of twice a week to show gains. Flexibility: 3-7 10-20 minutes Please see enclosed stretching exercises Stretching is most effective when done either after or independent of exercise. A warm up is important in order to prevent injury. 20 seconds per stretch, and repeat each stretch 2-3 times; stretch any restricted muscles. Balance/ Agility: 3-7 3-5 minutes See Body Balance information Special Considerations: If you feel any unusual sensations during exercise including, but not limited to chest pain, nausea, lightheadedness, dizziness, extreme fatigue, or any sharp pain, discontinue exercise immediately and consult your physician. Any specific exercises that cause discomfort should be stopped and excluded from your routine. This exercise program is designed to be safe and effective, however, certain health conditions may arise that would change safety guidelines for exercise. Please check with your physician if you are newly diagnosed with heart disease, high blood pressure, diabetes, osteoporosis, arthritis, or any other chronic condition. For additional information: [place] [employer]: www.acsm.org [place] [employer] on Exercise: www.acefitness.org National [place] of Health: www.nih.gov Clinician: Tejas Garrido MS Licensed Funeral Director And Embalmer documented in this encounter [facility] 12-17-2024 Note Education (EXEPMN) JOSH HUFFMAN ([id number]) 1960 F Date Time Provider Department 12/17/24 3:00 PM OPTION TRADER EXEPMN Reason for Visit: Nutrition Assessment [1591] Patient Education [91] During your visit today, we recorded the following information about you: Weight Height 99.7 kg 1.753 m Allergies As of Date: 12/17/2024 (No Known Allergies) Date Reviewed: 12/17/2024 Reviewed by: Trang Sosa RD - Fully Assessed Prescriptions as of 12/17/2024 - celecoxib (CELEBREX) 200 mg capsule TAKE 1 CAPSULE BY MOUTH TWICE A DAY - levothyroxine (SYNTHROID) 100 mcg tablet Take 1 tablet by mouth two times a week. Mon AND Monday - levothyroxine (SYNTHROID) 112 mcg tablet Take 1 tablet by mouth five times a week. Monday-Monday - cyanocobalamin, vitamin B-12, (VITAMIN B-12 ORAL) Take 500 mcg by mouth once daily. - cholecalciferol, vitamin D3, (VITAMIN D3 ORAL) Take 2,000 Units by mouth once daily. - psyllium husk (METAMUCIL ORAL) Take 5.8 g by mouth once daily. - diclofenac (VOLTAREN) 1 % topical gel Apply 2 g to affected area four times daily. - aspirin, enteric coated (ECOTRIN LOW STRENGTH) 81 mg EC tablet Take 1 tablet by mouth once daily. - KELP ORAL Take 325 mcg by mouth daily at bedtime. iodine supplement - MILK THISTLE ORAL Take 1,000 mg by mouth once daily. Includes Dandelion root 50mg - lisinopril-hydrochlorothiazide 10-12.5 mg per tablet Take 1 tablet by mouth every morning. - metoprolol succinate XL, long acting, (TOPROL XL) 100 mg Tb24 Take 100 mg by mouth daily at bedtime. Letter Text Encounter Status:Closed by TRANG SOSA on 12/17/24 [facility] 12-17-2024 History of Present illness Narrative HEALTH EVALUATION ON: Josh Britney [address]man [id number] [facility] [id number] DATE OF EXAMINATION: December 17, 2024 Age: [age] year old Clinic No. : [id number] PRESENT COMPLAINTS: Physical examination. MEDICATION ALLERGIES: None. PRESENT MEDICATIONS: Lisinopril HCTZ 10/12.5 mg. Take one tablet daily. Toprol XL 100 mg. Take one tablet daily. Synthroid (levothyroxine) 100 mcg once daily 2x/week (Mon&Mon). Synthroid (levothyroxine) 112 mcg once daily 5x/week (Mon-Fri). Celebrex 200 mg. Take one tablet daily. Aspirin 81 mg. Take one tablet daily. Voltaren gel. Apply as needed. Vitamin B12 500 mcg. Take one tablet daily. Vitamin D3 2000 IU. Take one tablet daily. Metamucil. Take one scoop daily. Milk thistle with dandelion 500 mg. Take one tablet daily. PAST MEDICAL HISTORY: Coronary artery calcium score of 0 AU (10/2019). Hyperlipidemia (10/2019). Elevated Lp(a). Prediabetes (07/2023: PQK=106, A1c=5.9%). Ascending aorta dilation (4.[address] 10/2019-07/2023). Transient Ischemic Attack (1987; during first , diagnosed ASD, repaired at [facility] after delivery). Atrial Septal Defect (1987; repaired at [facility] at age 27). Hypertension (2012). Hypothyroidism (2016). Postmenopause Psoriasis (scalp). Right plantar fasciitis (treated with Tenex). Vitamin D deficiency (10/2019: 19.7). Low-normal Vitamin B12 - 10/2019. Elevated uric acid in blood (without gout, 10/2019). Bilateral hip bursitis, treated with injection (11/2021). Right knee osteoarthritis (11/2021). Mild bilateral hearing loss. PAST SURGICAL AND PROCEDURE HISTORY: Traumatic splenectomy (1968). Tonsillectomy ((1975). ASD repair (1987). Right LASIK (2001). Colonoscopy (latest on 07/23/2012): Normal except for hemorrhoids and diverticulosis. Follow-up in 10 years recommended. Toe surgery (2012). Bilateral greater and left lesser saphenous vein laser surgery (2017). Right ultrasound-guided plantar fasciotomy (12/2020). Stress test (07/2023): Normal at 114% maximum predicted heart rate and 6.4 METS. CTA of the chest (07/2023): Mild to moderate dilatation of the ascending aorta at 4.3 cm. No significant change when compared to 2019. Groundglass opacities noted in the left upper lobe likely a remnant of past COVID infections. Cologuard test (10/2023): Negative. Right knee arthroscope (01/2024). FAMILY MEDICAL HISTORY: Mother age 92. She had a history of lung cancer diagnosed later in life., Cardiac stent placement at age 69, pacemaker, psoriasis, and psoriatic arthritis. Father age 79. He had a history of prostate cancer that metastasized to his bone. He also had a history of brain aneurysm. Sister, age 68, has a history of melanoma. Brother at age 63 from throat cancer complications (diagnosed at age 61). He had alcohol abuse, alcohol-related dementia and had a head injury at age 29. Son (Esteban), age 37, has type 1 diabetes. He has three daughters, all healthy. Son (Antonio), age 35, is healthy. Son (Sorin), age 31, has hearing loss and wears a hearing aid since age 4. Paternal grandmother had diabetes. SOCIAL HISTORY: Is to Tommy since 1981 Follows a regular diet. Had smoked 0.25 pack per day for 4 years but quit in 1979. Has 2 alcohol drinks per week. Drinks 2 cups of coffee per day. Sleeps 6-8 hours per night. Exercises aerobically (2 miles in treadmill at 3 mph) at 2-3 days per week. 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 She lives at home with her . REVIEW OF SYSTEMS: She denies any significant changes in his health since his last physical exam on She denies chest pain, shortness of breath, palpitations, or lightheadedness with physical activity. She reports normal bowel movements. She denies urinary difficulties. Her goal weight is 180 lb. She last weighed this at age 48. She is able to walk more afterher right knee arthroscope last 01/2024. PHYSICAL EXAMINATION: Blood pressure 112/76, pulse 66, temperature 98.2 F, height 69, weight 219.8 lb (216.25 on 08/07) Body mass index: 32.4 General appearance: Healthy, mildly obese, pleasant, in no distress. Skin: Skin color, texture, and turgor are normal. No rashes or suspicious lesions are seen. Head: Normocephalic. No masses, lesions, tenderness or abnormalities. Eyes: Anicteric sclera. Pupils are equally round and reactive to light. Extraocular movements are intact. Ears: External ears normal. Canals clear. Tympanic membranes normal. Nose/Sinuses: Midline septum. Normal mucosa. No nasal polyps. No sinus tenderness. Oropharynx: Oral cavity & oropharynx free of mucosal lesions, erythema or exudate, normal palatal elevation, tongue mobility. Neck: Supple, no adenopathy; thyroid symmetric, normal size, no bruits Musculoskeletal: Spine range of motion normal. Muscular strength intact. Straight leg raise: 60 degrees on the left and 60 degrees on the right. Lungs: Lungs clear to auscultation. No wheezing or rhonchi. Heart: Point of maximum impulse normal. No lifts, heaves, or thrills. Regular rate and rhythm. Breasts: Deferred to her EXTRUDER OPERATOR MULTIPLE. Abdomen: Abdomen soft, non-tender. Bowel sounds normal. No masses, organomegaly, or bruit. Extremities: Osteoarthritic changes of both hands. Bilateral varicose veins of legs and ankle. No edema, or skin discoloration. Good capillary refill. Peripheral pulses: Normal. Strong peripheral pulses. Neuro: Alert and oriented to person, place, and time. Gait normal. Reflexes normal and symmetric. Pelvic and rectal: Deferred to her EXTRUDER OPERATOR MULTIPLE. STUDIES Complete Blood Count: Normal. Metabolic Profile: The chemistry profile is normal including tests for kidney function, liver function, and blood sugar (100 mg/dl). Lipid Profile: Total cholesterol 190, HDL (good) cholesterol 60, LDL (bad) cholesterol 123 (direct), triglycerides 120. An ideal total cholesterol level is less than 200, an LDL less than 100, and HDL greater than 45 for men or greater than 55 for women. LIPID FLOWSHEET 08/01/2023 12/17/2024 CHOLESTEROL, TOTAL 238 190 HDL CHOLESTEROL 76 60 LDL CHOLESTEROL 150 (direct) 123 (direct) TRIGLYCERIDE 115 120 GLUCOSE 108 100 A1C 5.9 5.8 Urinalysis: Normal. Thyroid function: TSH: 1.780. Normal is 0.270-4.200. Free T4: 1.7. Normal is 0.9-1.7. THYROID FNX 10/31/2019 08/01/2023 12/17/2024 TSH 13.900 5.400 1.780 FREE T4 1.3 1.7 1.7 Miscellaneous Labs: Uric acid: 6.3. Normal is 4.0-8.1 (M) and 2.5-6.6 (F). Goal is less than 6.0 if you have had gout. Ultrasensitive CRP: Elevated at 5.1. Ultrasensitive CRP less than 1.0 is considered low relative risk for cardiovascular events. Values between 1.0 to 3.0 is considered average risk. Values greater than 3.0 is considered high risk for cardiovascular events. Lp (a): Elevated at 146. The desired range is less than 40 mg/dL. Please see comments below. Apolipoprotein B: 90. Goal is less than 80 for the highest-risk patients (those with known coronary artery disease, or have diabetes plus 1 other risk factor for heart disease). Goal is less than 90 for the high-risk patients (those with 2 or more risk factors or have diabetes but no other risk factors). Risk factors for heart disease (besides high cholesterol) include smoking, hypertension, and family history of premature coronary artery disease. Vitamin B12: Normal. Hemoglobin A1C: Borderline high at 5.5%. A1c is blood glucose attached to hemoglobin (a component of blood). Often called the diabetic report card, it reflects the average blood sugar for the 3 month period before the test. A1c can be helpful to track diabetic control over time. An A1c level of less than 5.7% is normal. Levels of 5.7 to 6.4% indicate that blood glucose levels were in the pre-diabetic range. Patients in this range have an increased risk of developing diabetes in the future. A1c levels of 6.5% or higher is suggestive that a person has diabetes. The [place] [employer] recommends that most people with diabetes maintain a goal of keeping A1c levels at or below 7%. Vitamin D: 65.2. Normal is 30-80. Levels between 20-30 is considered Vitamin D insufficiency. Levels below 20 is Vitamin D deficiency. Vitamin D is important for adequate calcium absorption. Low vitamin D levels can lead to low bone density. Urine Albumin Creatinine Ratio: Normal. Iron studies: Normal. Ferritin: Elevated at 667.0. This is likely due to excess weight. Iron Studies Latest Ref Rng 08/01/2023 12/17/2024 Iron 41 - 186 ug/dL 100 73 TIBC 232 - 386 ug/dL 328 302 Transferrin Saturation 15.0 - 57.0 % 30.5 24.2 Ferritin 14.7 - 205.1 ng/mL 458.0 667.0 Percent Body Fat: 48.5%. The desired range is 18-28% for women. Your maximum weight should be 157.1 pounds to get to 28% body fat. Your abdominal waist circumference is 44.5 inches. Your odmwg-lt-utq ratio is 0.88 and your ktpuc-wo-qkbcfn ratio is 0.64. [place] waist to hip ratio is 0.90 or less for men and 0.80 or less for women. For both sexes, an ideal bfrty-en-jpckqe ratio is 0.50 or less. Your ideal weight is the weight you can obtain to get your waist circumference to 34.5 inches (or a hbgav-dl-cwbauy ratio of 50% or lower). Bone Mineral Density: Normal hip and spine. Vascular Studies: Carotid ultrasound: Atherosclerotic plaque in the origins of both right left internal carotid arteries and distal right common carotid artery without significant stenosis. Abdominal aorta ultrasound: Negative for aneurysm. Atherosclerotic plaque noted in the mid abdominal aorta. Ankle brachial index: Normal. Coronary Artery Calcium Score: Normal at 0 AU. The following calcium scoring system provides the categorization of atherosclerotic plaque: 0 = no calcified plaque present; 1-10 = minimal plaque present; 11-100 = mild plaque present; 101-400 = moderate plaque present; > 400 = extensive plaque present. Your estimated 10-year risk of a coronary heart disease event (myocardial infarction, coronary insufficiency, and angina pectoris) is 1.6%. See attached SADLER Risk Score Sheet. Note: The mid ascending aorta is dilated at 4.5 cm. Slightly up from 07/2023. Mammogram: Normal. Repeat in 1 year. CONCLUSIONS Coronary artery calcium score of 0 AU (10/2019, and today). Hyperlipidemia with a direct LDL cholesterol of 123 mg/dL. Your goal is less than 100 mg/dL. Elevated Lp(a). Lp(a) is a fraction of the LDL cholesterol that has been linked to an increased risk for cardiovascular disease and is frequently present in families with premature vascular disease. People with elevated Lp(a) cholesterol levels, particularly greater than 40, have a two to three times higher risk for future cardiovascular events. Lp(a) levels virtually doesn't change throughout your lifetime. There is not much that you can do to lower your Lp(a) levels and there is no prospective data to show that lowering Lp(a) levels results in lower risk for future cardiovascular events. The conservative approach is to get your LDL less than 100 mg/dl, with less than 70 mg/dl as an optional more aggressive goal. Prediabetes with an A1c of 5.8%. Ascending aorta dilation (4.5 cm). Atherosclerotic plaque in the origins of both right left internal carotid arteries and distal right common carotid artery without significant stenosis. Atherosclerotic plaque noted in the mid abdominal aorta. Transient ischemic attack (1987; during first , diagnosed ASD, repaired at [facility] after delivery). Atrial septal defect (1987; repaired at [facility] at age 27). Hypertension (2013). Hypothyroidism (2017). Current dose of levothyroxine is appropriate. Elevated ferritin level with normal iron studies. Elevated ultrasensitive CRP (5.1). This could be due to excess weight. However, CRP is a marker for inflammation and has been recognized as an independent risk factor for cardiovascular events. Aspirin has been shown to prevent future vascular events in those with elevated CRP levels. In addition, weight loss, aerobic exercise, and statin medications (e.g. Lipitor, Zocor, Pravachol) have been shown to reduce ultrasensitive CRP levels. Postmenopause. Psoriasis (scalp). Right plantar fasciitis (treated with Tenex). Vitamin D deficiency (10/2019: 19.7). Current vitamin D level is normal on replacement therapy. Bilateral hip bursitis, treated with injection (11/2021). Right knee osteoarthritis (11/2021). Minimal bilateral high frequency hearing loss > 6000 Hz. Osteoarthritis of hands. RECOMMENDATIONS Start Rosuvastatin 10 mg one pill daily. Recheck fasting lipid profile and ultrasensitive CRP in two months. Continue other medications. ECHO of heart to remeasure your thoracic aorta in one year. Maintain a low-salt (less than one half teaspoon per day), low-saturated fat, low-calorie diet. Increase your aerobic exercise program to include moderate-intensive physical activity for 150 minutes or more per week, vigorous-intensity activity for at least 75 minutes per week, or an equivalent combination of the two, and engaging in muscle strengthening activity at least twice per week. If you develop any unexplained, recurrent chest pain, palpitations or skipping heart beats, shortness of breath or lightheadedness, see your personal physician or a shuttlecock assembler for evaluation. Try to achieve Zone 2 stage of aerobic exercise. This is at a speed slow enough that you can still maintain a conversation but fast enough that the conversation might be a little strained. The hitchcock is to find an activity that fits into your lifestyle, that you enjoy doing, and that enables you to work at a steady pace that meets the Zone 2 test: You are able to talk in full sentences, but just barely. Start out at two 30-minute sessions per week to a goal of 3 hours/week of Zone 2, or four 45-minute sessions. This is the minimum required for most people to drive health benefits and make improvements once you get over the initial hope of trying it for the first time. Try walking stairs. Research shows you burn about 20 times more calories going up stairs than walking on flat ground. Even going down stairs you burn roughly five times more, the muscles being worked to slow the body s descent. Lose weight to a goal of 204.6 pounds (-7% of your current weight) over the next 12 months, and eventually to a weight you can achieve to get your waist circumference at half your height (34.5 inches). Kathrin in 10/2026. MS. Huffman, it was a pleasure to see you during your recent evaluation. I was pleased to see that your coronary artery calcium score remained at 0 AU. This means that you have no measurable calcified plaque in your coronary arteries. This is the best possible result. This implies that there is no significant coronary artery narrowing and a very low likelihood of a cardiac event over at least the next five years. A score of 0 has a 95-99% negative predictive value. However, you have atherosclerosis of both right and left internal carotid arteries and atherosclerotic plaque noted in your abdominal aorta. Because of your genetically-determined elevated Lp(a) cholesterol, I recommend starting statin medication such as rosuvastatin 10 mg daily to further lower your LDL cholesterol to less than 100 mg/dL, if not less than 70 mg/dL. Really work on losing some weight this year. I am confident you will further lower your blood pressure and cholesterol levels with diet, exercise, and weight loss. If you have any questions regarding this report or the recommendations, please do not hesitate to call me. Wishing you good health, David Hull M.D., F.A.C.P. Pt. was identified by name and birthdate. Latex allergy: No Pend Hep C (needs completed once ages 18-79 years) 2020 Pend HIV (needs completed once ages 13-64 years) na/age Medications will be reviewed by . Medication list reviewed by RN. Importance of a current medication list discussed with pt. Patient verbalizes good understanding. Date of last Colonoscopy: Colonoscopy at age 53;2023; Cologuard Next Due: 2026 Immunizations Reviewed the following vaccines with patient. See also immunization section in [facility] for vaccine history and vaccines patient received today. Td-na Tdap-2016 Pneumococcal- (Pneumovax 23)-1998 Prevnar 13- na PCV -2022 Hepatitis A-na Hepatitis B-na Influenza-2022; given today Shingrix-x2; 2019 Covid-19 5041-2330- 2022; given today RSV- 2022 See [facility]. Discussed with patient current recommendations from the CDC for routine adult immunizations. Questions answered. Pt. verbalizes understanding of information discussed. Provided patient with [facility] Immunization System Document and VIS sheet. VISUAL ACUITY Patient declines vision exam Date of Last Exam - 2023 Vision Correction Reading Glasses documented in this encounter [facility] 12-17-2024 Note HNO ID: [id number] Author: DAVID HULL MD Service: ? Author Type: Physician Type: Progress Notes Filed: 12/17/2024 17:27 Note Text: HEALTH EVALUATION ON: Josh Tan Huffman [address] [facility] [id number] DATE OF EXAMINATION: December 17, 2024 Age: [age] year old Clinic No. : [id number] PRESENT COMPLAINTS: Physical examination. MEDICATION ALLERGIES: None. PRESENT MEDICATIONS: Lisinopril HCTZ 10/12.5 mg. Take one tablet daily. Toprol XL 100 mg. Take one tablet daily. Synthroid (levothyroxine) 100 mcg once daily 2x/week (SatANDSun). Synthroid (levothyroxine) 112 mcg once daily 5x/week (Mon-Fri). Celebrex 200 mg. Take one tablet daily. Aspirin 81 mg. Take one tablet daily. Voltaren gel. Apply as needed. Vitamin B12 500 mcg. Take one tablet daily. Vitamin D3 2000 IU. Take one tablet daily. Metamucil. Take one scoop daily. Milk thistle with dandelion 500 mg. Take one tablet daily. PAST MEDICAL HISTORY: Coronary artery calcium score of 0 AU (10/2019). Hyperlipidemia (10/2019). Elevated Lp(a). Prediabetes (07/2023: YQV=765, A1c=5.9%). Ascending aorta dilation (4.[address] 10/2019-07/2023). Transient Ischemic Attack (1987; during first , diagnosed ASD, repaired at [facility] after delivery). Atrial Septal Defect (1987; repaired at [facility] at age 27). Hypertension (2012). Hypothyroidism (2016). Postmenopause Psoriasis (scalp). Right plantar fasciitis (treated with Tenex). Vitamin D deficiency (10/2019: 19.7). Low-normal Vitamin B12 - 10/2019. Elevated uric acid in blood (without gout, 10/2019). Bilateral hip bursitis, treated with injection (11/2021). Right knee osteoarthritis (11/2021). Mild bilateral hearing loss. PAST SURGICAL AND PROCEDURE HISTORY: Traumatic splenectomy (1968). Tonsillectomy ((1975). ASD repair (1987). Right LASIK (2001). Colonoscopy (latest on 07/23/2012): Normal except for hemorrhoids and diverticulosis. Follow-up in 10 years recommended. Toe surgery (2012). Bilateral greater and left lesser saphenous vein laser surgery (2017). Right ultrasound-guided plantar fasciotomy (12/2020). Stress test (07/2023): Normal at 114% maximum predicted heart rate and 6.4 METS. CTA of the chest (07/2023): Mild to moderate dilatation of the ascending aorta at 4.3 cm. No significant change when compared to 2019. Groundglass opacities noted in the left upper lobe likely a remnant of past COVID infections. Cologuard test (10/2023): Negative. Right knee arthroscope (01/2024). FAMILY MEDICAL HISTORY: Mother age 92. She had a history of lung cancer diagnosed later in life., Cardiac stent placement at age 69, pacemaker, psoriasis, and psoriatic arthritis. Father age 79. He had a history of prostate cancer that metastasized to his bone. He also had a history of brain aneurysm. Sister, age 68, has a history of melanoma. Brother at age 63 from throat cancer complications (diagnosed at age 61). He had alcohol abuse, alcohol-related dementia and had a head injury at age 29. Son (Esteban), age 37, has type 1 diabetes. He has three daughters, all healthy. Son (Antonio), age 35, is healthy. Son (Sorin), age 31, has hearing loss and wears a hearing aid since age 4. Paternal grandmother had diabetes. SOCIAL HISTORY: Is to Tommy since 1981 Follows a regular diet. Had smoked 0.25 pack per day for 4 years but quit in 1979. Has 2 alcohol drinks per week. Drinks 2 cups of coffee per day. Sleeps 6-8 hours per night. Exercises aerobically (2 miles in treadmill at 3 mph) at 2-3 days per week. 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 She lives at home with her . REVIEW OF SYSTEMS: She denies any significant changes in his health since his last physical exam on She denies chest pain, shortness of breath, palpitations, or lightheadedness with physical activity. She reports normal bowel movements. She denies urinary difficulties. Her goal weight is 180 lb. She last weighed this at age 48. She is able to walk more afterher right knee arthroscope last 01/2024. PHYSICAL EXAMINATION: Blood pressure 112/76, pulse 66, temperature 98.2 ?F, height 69, weight 219.8 lb (216.25 on 08/07) Body mass index: 32.4 General appearance: Healthy, mildly obese, pleasant, in no distress. Skin: Skin color, texture, and turgor are normal. No rashes or suspicious lesions are seen. Head: Normocephalic. No masses, lesions, tenderness or abnormalities. Eyes: Anicteric sclera. Pupils are equally round and reactive to light. Extraocular movements are intact. Ears: External ears normal. Canals clear. Tympanic membranes normal. Nose/Sinuses: Midline septum. Normal mucosa. No nasal polyps. No sinus tenderness. Oropharynx: Oral cavity AND oropharynx free of mucosal lesions, erythema or exudate, normal palatal elevation, tongue mobility. Neck: Supple, no a (more content not included)... [facility] 12-17-2024 History of Present illness Narrative Radiology Service Progress Note PATIENT NAME: Josh Huffman DATE OF SERVICE: December 17, 2024 TIME: 12:33 PM PATIENT IDENTITY VERIFICATION COMPLETED USING TWO (2) IDENTIFIERS: Name and Date of confirmed by patient verbally and Name and Date of confirmed by identification band. FALL SCREENING: Has the patient had 2 falls in the last year or 1 fall with injury or currently using an Ambulatory Assistive Device (Walker, Cane, Wheelchair, Crutches, etc.)? No PATIENT GENDER DATA: Assigned female at . status: : No status: NO. PATIENT RELEVANT IMPLANT DATA REVIEWED: Yes PATIENT PRESENTS WITH AN IMPLANTABLE OR ATTACHED WIRE COATER: No RADIOLOGY DEPARTMENT: CT; Exam(s) Completed: Cardiac PERIPHERAL IV DATA: Not applicable SIGNED BY: RT Amira(Gregg) December 17, 2024 12:33 PM documented in this encounter [facility] 12-17-2024 Note HNO ID: [id number] Author: PEPPER HERNANDEZ RT(R) Service: Radiology Author Type: Mechanical Adjuster Type: Progress Notes Filed: 12/17/2024 12:33 Note Text: Radiology Service Progress Note PATIENT NAME: Josh Huffman DATE OF SERVICE: December 17, 2024 TIME: 12:33 PM PATIENT IDENTITY VERIFICATION COMPLETED USING TWO (2) IDENTIFIERS: Name and Date of confirmed by patient verbally and Name and Date of confirmed by identification band. FALL SCREENING: Has the patient had 2 falls in the last year or 1 fall with injury or currently using an Ambulatory Assistive Device (Walker, Cane, Wheelchair, Crutches, etc.)? No PATIENT GENDER DATA: Assigned female at . status: : No status: NO. PATIENT RELEVANT IMPLANT DATA REVIEWED: Yes PATIENT PRESENTS WITH AN IMPLANTABLE OR ATTACHED WIRE COATER: No RADIOLOGY DEPARTMENT: CT; Exam(s) Completed: Cardiac PERIPHERAL IV DATA: Not applicable SIGNED BY: MARILU Collier) December 17, 2024 12:33 PM [facility] 12-17-2024 Note HNO ID: [id number] Author: TYRESE PANDEY RN Service: ? Author Type: Registered Nurse Type: Progress Notes Filed: 12/17/2024 17:27 Note Text: Pt. was identified by name and birthdate. Latex allergy: No Pend Hep C (needs completed once ages 18-79 years) 2020 Pend HIV (needs completed once ages 13-64 years) na/age Medications will be reviewed by . Medication list reviewed by RN. Importance of a current medication list discussed with pt. Patient verbalizes good understanding. Date of last Colonoscopy: Colonoscopy at age 53;2023; Cologuard Next Due: 2026 Immunizations Reviewed the following vaccines with patient. See also immunization section in Epic for vaccine history and vaccines patient received today. Td-na Tdap-2016 Pneumococcal- (Pneumovax 23)-1998 Prevnar 13- na PCV -2022 Hepatitis A-na Hepatitis B-na Influenza-2022; given today Shingrix-x2; 2019 Covid-19 2217-8157- 2022; given today RSV- 2022 See Immunization record in EPIC. Discussed with patient current recommendations from the CDC for routine adult immunizations. Questions answered. Pt. verbalizes understanding of information discussed. [facility]ided [facility] with [facility] Immun[facility] Document and VIS sheet. VISUAL ACUITY Patient declines vision exam Date of Last Exam - 2023 Vision Correction Reading Glasses [facility] 12-17-2024 History of Present illness Narrative Radiology Service Progress Note PATIENT NAME: Josh Huffman DATE OF SERVICE: December 17, 2024 TIME: 11:07 AM PATIENT IDENTITY VERIFICATION COMPLETED USING TWO (2) IDENTIFIERS: Name and Date of confirmed by patient verbally. FALL SCREENING: Has the patient had 2 falls in the last year or 1 fall with injury or currently using an Ambulatory Assistive Device (Walker, Cane, Wheelchair, Crutches, etc.)? No PATIENT GENDER DATA: Assigned female at . status: : No status: NO. PATIENT RELEVANT IMPLANT DATA REVIEWED: Yes PATIENT PRESENTS WITH AN IMPLANTABLE OR ATTACHED WIRE COATER: No RADIOLOGY DEPARTMENT: Mammography PERIPHERAL IV DATA: Not applicable SIGNED BY: RT Eva(R) December 17, 2024 11:07 AM documented in this encounter [facility] 12-17-2024 Note HNO ID: [id number] Author: ANDREW CALVO RT(Gregg) Service: ? Author Type: Mechanical Adjuster Type: Progress Notes Filed: 12/17/2024 11:07 Note Text: Radiology Service Progress Note PATIENT NAME: Josh Huffman DATE OF SERVICE: December 17, 2024 TIME: 11:07 AM PATIENT IDENTITY VERIFICATION COMPLETED USING TWO (2) IDENTIFIERS: Name and Date of confirmed by patient verbally. FALL SCREENING: Has the patient had 2 falls in the last year or 1 fall with injury or currently using an Ambulatory Assistive Device (Walker, Cane, Wheelchair, Crutches, etc.)? No PATIENT GENDER DATA: Assigned female at . status: : No status: NO. PATIENT RELEVANT IMPLANT DATA REVIEWED: Yes PATIENT PRESENTS WITH AN IMPLANTABLE OR ATTACHED WIRE COATER: No RADIOLOGY DEPARTMENT: Mammography PERIPHERAL IV DATA: Not applicable SIGNED BY: MARILU Velasquez) December 17, 2024 11:07 AM [facility] 12-17-2024 Note HNO ID: [id number] Author: TRANG SOSA RD Service: ? Author Type: Registered Dietitian Type: Progress Notes Filed: 12/17/2024 08:49 Note Text: [facility] Nutrition Progress Note Josh Huffman [id number] Assessment Physical Findings: Current Weight and Height: 99.7 kg (219 lb 11.2 oz) 175.3 cm (5' 9) Body mass index is 32.44 kg/m?. [place] BMI: 18.5-24.9 Percent body fat: 48.5 %, [place] body fat percentage is 18-28% for female. 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 Breakfast: orange or an apple, marshallese yogurt Lunch: lunch meetings often- sandwiches, salads. Chooses whole grains at work. Snack: snacks after work before dinner- pretzels, chips Dinner: loves to cook. Protein (chicken often, fish/ shrimp 2x/ week, red meat 2x/ week), vegetables with dinner usually (broccoli often, greens), rice/potatoes/pasta. Cheese with meals sometimes. Uses both butter and oil. Will have beans with indonesian meals, makes lentil soups sometimes. Fruit with dinner usually. Snack: none usually. Beverages: Coffee 2 cups/day - black, Water 64 oz/day Other: will have a sparkling water sometimes ETOH: scotch on the rocks at dinner usually, not currently drinking Dining Out: 1x/ month for dinner, 5x/ week for lunch Nutrition Supplements: metamucil, vitamin B-12, vitamin D, milk thistle Allergies: Patient has no known allergies. Past Medical History PAST MEDICAL HISTORY Diagnosis Date Ascending aorta dilation (4.3 cm on non-contrast CT 10/2019) 10/31/2019 ASD (atrial septal defect) 1988 repaired at [facility] at age 27 Bilateral hip bursitis 11/2021 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 Elevated uric acid in blood 10/31/2019 without gout Heel spur resolved with Tenex Hypercholesterolemia 10/31/2019 Hypertension on medication since 2013 Hypothyroidism 2017 Menopausal state Normal coronary arteries, Coronary Calcium Score = 0 (10/2019) 10/31/2019 (normal spontaneous vaginal delivery) 1988, 1989, 1993 1988: 8'12; 1989 9'3; 1993: 9'1 Prediabetes 10/31/2019 Psoriasis scalp Right plantar fasciitis treated with Tenex TIA (transient ischemic attack) 1987 during first , diagnosed ASD, repaired at [facility] after delivery Vitamin D deficiency 10/31/2019 Labs: available nutrition-related labs reviewed - not resulted at time of appointment Lab Results Component Value Date GLUC 92 01/31/2024 HBA1C 5.9 (H) 08/01/2023 CHOL 238 (H) 08/01/2023 TG 115 08/01/2023 HDL 76 08/01/2023 LDL 139 (H) 08/01/2023 LDLCHOLDIR 150 (H) 08/01/2023 VITD25 81.9 (H) 08/01/2023 USCRP 3.4 (H) 08/01/2023 Medications: reviewed in chart and medical history [...] this visit Assessment: Body composition showing class I obese female per BMI standards with body fat 20.5% in excess and a waist circumference 10.0 above recommended. Waist to hip ratio and visceral fat are above ideal ranges. Weight History/Weight Change: patient reports weight has remained stable over the past year. Pt has gained 3.5# body weight, decreased 1.6# skeletal muscle mass, and increased 1.9% body fat since last [facility] physical in 07/2023. Food recall showing: Meeting Standard Recommendations for - fruit, vegetables, fish, red meat, whole grains Below Standard Recommendations for - nuts/seeds, beans/ lentils Patient is interested in general healthy eating and weight loss. Patient is retiring at the end of the month and is motivated to spend more time on exercise and eating healthy meals. Nutrition Diagnosis: Behavioral-Environmental: Food and nutrition related knowledge deficit, related to, lack of prior exposure to information , as evidenced by verbalizes incomplete information. Nutrition Monitoring AND Evaluation: (more content not included)... [facility] 12-17-2024 History of Present illness Narrative [facility] Nutrition Progress Note Josh Huffman [id number] Assessment Physical Findings: Current Weight and Height: 99.7 kg (219 lb 11.2 oz) 175.3 cm (5' 9) Body mass index is 32.44 kg/m . [place] BMI: 18.5-24.9 Percent body fat: 48.5 %, [place] body fat percentage is 18-28% for female. 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 Breakfast: orange or an apple, marshallese yogurt Lunch: lunch meetings often- sandwiches, salads. Chooses whole grains at work. Snack: snacks after work before dinner- pretzels, chips Dinner: loves to cook. Protein (chicken often, fish/ shrimp 2x/ week, red meat 2x/ week), vegetables with dinner usually (broccoli often, greens), rice/potatoes/pasta. Cheese with meals sometimes. Uses both butter and oil. Will have beans with indonesian meals, makes lentil soups sometimes. Fruit with dinner usually. Snack: none usually. Beverages: Coffee 2 cups/day - black, Water 64 oz/day Other: will have a sparkling water sometimes ETOH: scotch on the rocks at dinner usually, not currently drinking Dining Out: 1x/ month for dinner, 5x/ week for lunch Nutrition Supplements: metamucil, vitamin B-12, vitamin D, milk thistle Allergies: Patient has no known allergies. Past Medical History PAST MEDICAL HISTORY Diagnosis Date Ascending aorta dilation (4.3 cm on non-contrast CT 10/2019) 10/31/2019 ASD (atrial septal defect) 1988 repaired at [facility] at age 27 Bilateral hip bursitis 11/2021 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 Elevated uric acid in blood 10/31/2019 without gout Heel spur resolved with Tenex Hypercholesterolemia 10/31/2019 Hypertension on medication since 2013 Hypothyroidism 2017 Menopausal state Normal coronary arteries, Coronary Calcium Score = 0 (10/2019) 10/31/2019 (normal spontaneous vaginal delivery) 1987, 1989, 1993 1987: 8'12; 1989 9'3; 1993: 9'1 Prediabetes 10/31/2019 Psoriasis scalp Right plantar fasciitis treated with Tenex TIA (transient ischemic attack) 1988 during first , diagnosed ASD, repaired at [facility] after delivery Vitamin D deficiency 10/31/2019 Labs: available nutrition-related labs reviewed - not resulted at time of appointment Lab Results Component Value Date GLUC 92 01/31/2024 HBA1C 5.9 (H) 08/01/2023 CHOL 238 (H) 08/01/2023 TG 115 08/01/2023 HDL 76 08/01/2023 LDL 139 (H) 08/01/2023 LDLCHOLDIR 150 (H) 08/01/2023 VITD25 81.9 (H) 08/01/2023 USCRP 3.4 (H) 08/01/2023 Medications: reviewed in chart and medical history [...] this visit Assessment: Body composition showing class I obese female per BMI standards with body fat 20.5% in excess and a waist circumference 10.0 above recommended. Waist to hip ratio and visceral fat are above ideal ranges. Weight History/Weight Change: patient reports weight has remained stable over the past year. Pt has gained 3.5# body weight, decreased 1.6# skeletal muscle mass, and increased 1.9% body fat since last executive [facility] physical in 07/2023. Food recall showing: Meeting Standard Recommendations for - fruit, vegetables, fish, red meat, whole grains Below Standard Recommendations for - nuts/seeds, beans/ lentils Patient is interested in general healthy eating and weight loss. Patient is retiring at the end of the month and is motivated to spend more time on exercise and eating healthy meals. Nutrition Diagnosis: Behavioral-Environmental: Food and nutrition related knowledge deficit, related to, lack of prior exposure to information , as evidenced by verbalizes incomplete information. Nutrition Monitoring & Evaluation: Implement dietary recommendations to support your goals to improve your health and optimize your body composition. Nutrition Interventions: Comprehensive nutrition evaluation focused on health promotion. Plan Specific Modifications: We discussed making the following changes to your meals/snacks to best support your health goals. After alf- focus on having healthy, balanced lunches. Make sure you are having protein and some high fiber carbohydrates (vegetables, whole grains, beans/ lentils). An idea we discusses was having leftovers from dinner for lunch the next day. Planning to have enough for leftovers the next day can also help with portion control at dinner. As discussed in session, fiber is great for heart health, gastrointestinal health, blood sugar control, and weight management. Aim for 20-25g fiber per day. Whole food plants are high in fiber, increase intake of: whole grains (whole wheat bread/pasta, popcorn, farro/wheat berries, brown/wild rice, quinoa), starchy vegetables (corn, potatoes/sweet potatoes with the skin, peas, winter squash), fruits (especially berries and pears), starchy beans/peas (black beans, lentils, split peas, soy beans), and nuts/seeds (especially rashida seeds). Consider adding 1 tbsp rashida seeds to your marshallese yogurt in the morning. 1 tbsp of rashida seeds has 5g fiber. Optimize Body Composition: Aim for 2464-0927 calories per day paired with exercise for sustainable weight loss. Identify areas in your diet where you can easily monitor portion sizes and make realistic swaps to save calories. You may be able to see weight loss success by following the plate method of portion control alone - 1/2 plate vegetables, 1/4 plate grains/starchy vegetables, and 1/4 plate lean protein. Follow executive health physician guidance regarding activity limitations. Gradually work toward exercise guidelines provided by exercise physiology. Strength training is essential to maintain muscle mass. Consume high protein foods (totaling 15-35 g protein) with each meal or at least 3 times per day to best maintain muscle mass. Prioritize protein and fiber at each meal. These are the most satiating nutrients and will help keep you energized and satisfied throughout the day. Continue to work to reduce alcohol intake as much as possible. One drink is the equivalent of 5 oz wine, 12 oz beer, or 1.5oz liquor. Alcohol contains at least 100 calories per drink (in quantities listed). Remember that small changes will help you accomplish large goals. Losing weight at a slow and steady rate will help with longevity and sustained results. Decreasing your typical intake by just 100 calories per day for a year would give you 10 lbs of weight loss. Heart Healthy Eating: Limit high saturated fat foods such as cheese, butter, high fat meats/dairy, red and processed meats. Choose the lowest fat dairy that you can tolerate. Look for saturated fat content on the nutrition label below total fat. Replace animal fats with plant oils, avocado, nuts and seeds (be mindful of the serving size listed on the container due to calorie content). Keep in mind that coconut oil is a saturated fat. Any fat that is liquid at room temperature is unsaturated and good to use. Add soluble fiber to help reduce cholesterol - food sources include oats, barley, rashida seeds, starchy beans such as black beans, most fruits, sweet potatoes, and cruciferous vegetables (broccoli/brussels sprouts). General Healthy Eating: Eat a variety of foods from all food groups including a variety of colors. Different colors provide you with different nutrients and antioxidants. Aim for 1/2 plate of vegetables, 1/4 plate of high fiber carb (whole grains, fruits, peas/corn, etc.), and 1/4 plate of lean protein foods (low fat meat, fish, low fat dairy, starchy beans, tofu/edamame, etc.) for meals when possible. Start by using this model for dinner meals. Include a serving of fruit with meals [...] good plant-based sources. Limit red meat to 1-2 servings per week, and limit processed meats (lau, deli meats, etc.) as much as is realistic for optimal health. Incorporate some starchy beans (black beans, bacon beans, lentils, etc.) to increase soluble fiber and reduce meat portions. This may help cholesterol. Aim for at least 1/2 cup 3 times per week. Criteria: lab values, body composition/weight, food recall, patient input Follow up: at next [facility] Physical Referred/Supervised by: Della/Della Consult Billing Type: body composition rate MNT: ea 15 minutes, 4 increments Signed by: Trang Sosa RD documented in this encounter [facility] 11-19-2024 Telephone encounter Note Images from the original note were not included. David Hull MD You; A11 Nurse Phone15 hours ago (4:19 PM) She has a calcium score scheduled. This will give me a measurement of her ascending aorta. Therefore a CTA is not necessary. [facility] 11-19-2024 Miscellaneous Notes Images from the original note were not included. David Hull MD You; [facility] Nurse Phone15 hours ago (4:19 PM) She has a calcium score scheduled. This will give me a measurement of her ascending aorta. Therefore a CTA is not necessary. Previsit call completed. confirmed. Reviewed department guidelines/changes with pt in regard to covid 19-pt verbalized understanding. Additional consults: None Q: will email Dr Hull per Dr Partida's 2022 letter I recommend you have another CT angiogram of the chest in 1-2 years to monitor the diameter of the ascending aorta. Do you want to order one? documented in this encounter [facility] 11-18-2024 Telephone encounter Note Previsit call completed. confirmed. Reviewed department guidelines/changes with pt in regard to covid 19-pt verbalized understanding. Additional consults: None Q: will email Dr Hull per Dr Partida's 2022 letter I recommend you have another CT angiogram of the chest in 1-2 years to monitor the diameter of the ascending aorta. Do you want to order one? [facility] 06-24-2024 Note HNO ID: [id number] Author: AVI DOBBINS MD Service: ? Author Type: Physician Type: Progress Notes Filed: 06/24/2024 11:11 Note Text: Avi Dobbins MD Department of Orthopaedics Orthopaedics [address] [facility] [address] Dept: [phone] Dept June 24, 2024 CHIEF COMPLAINT: Follow Up of the Right Knee and 3 weeks post visit right knee pain (Here for cortisone injection) HPI Patient states her pain is better since she has been taking the Celebrex. She is leaving on Monday for [place] and will need a refill before she leaves. Patient here for cortisone injection right knee. ASSESSMENT: M25.561 Acute pain of right knee (primary encounter diagnosis) M17.11 Primary osteoarthritis of right knee PLAN: Cortisone injection today as previously discussed OBJECTIVE: Ms. Josh Huffman is a pleasant 64 year old in no apparent distress. Gen:There were no vitals taken for this visit. Large Joint Arthro/Inj: R knee joint Informed Consent Consent Obtained: Verbal [employer] Protocol A moment to CARE was completed. SIGN IN Personnel directly involved with the procedure wore the appropriate PPE. Special Equipment: N/A Patient/Surrogate Stated/Verified: Patient name, Date of , Relevant allergies and Intended procedure TIME OUT Intended patient and procedure match the source document(s). Consent documented and matches the intended procedure. Relevant labs, photos, and/or imaging studies have been reviewed. Correct side/site marked and visible. Medications required for procedure verified. No fire risk assessment and interventions applicable. No implant(s) inserted. 06/24/2024 11:04 AM The procedure site was prepped in the usual sterile fashion. Site: R knee joint Medications: 40 mg triamcinolone acetonide 40 mg/mL Anesthetics: 4 mL lidocaine (PF) 10 mg/mL (1 %) Outcome: Tolerated well, no immediate complications Post-injection instructions were reviewed with the patient and the patient voiced understanding of these instructions. SIGN OUT No specimen collected. No instruments, equipment or retained foreign bodies applicable. Post-procedure follow-up management communicated and Plan of Care Visit completed when applicable Supporting Subjective Information Below: Past Surgical History: PAST SURGICAL HISTORY 02/07/2024: ARTHRS KNE SURG W/MENISCECTOMY MED/LAT W/SHVG; Right Comment: right knee, arthroscopic medial meniscectomy, lateral and patellofemoral chondroplasties 07/23/2012: COLONOSCOPY Comment: hemorrhoids, diverticulosis, advised 10-year follow-up 1988: HEART SURGERY HX Comment: at [facility], atrial septal defect repair 2002: LASIK; Right Comment: Right 2018: PAST SURGICAL HISTORY OF Comment: laser surg, greater and lesser saphenous veins, bilateral 1969: REMOVAL OF SPLEEN TOTAL Comment: traumatic No date: SKIN BIOPSY HX Comment: benign 2013: TOE SURGERY HX Comment: tendon repairs due to step into groundhog hole, second surgery same year due to atrophic changes 1975: TONSILLECTOMY HX 12/25/2020: US GUIDED PLANTAR FASCIOTOMY; Right Comment: Right Medications: Current Outpatient Medications Medication Sig celecoxib (CELEBREX) 200 mg capsule Take 1 capsule by mouth two times a day. levothyroxine (SYNTHROID) 100 mcg tablet Take 1 tablet by mouth two times a week. Mon AND Monday levothyroxine (SYNTHROID) 112 mcg tablet Take 1 tablet by mouth five times a week. Monday-Monday cyanocobalamin, vitamin B-12, (VITAMIN B-12 ORAL) Take 500 mcg by mouth once daily. cholecalciferol, vitamin [...] mouth once daily. Includes Dandelion root 50mg lisinopril-hydrochlorothiazide 10-12.5 mg per tablet Take 1 tablet by mouth every morning. metoprolol succinate XL, long acting, (TOPROL XL) 100 mg Tb24 Take 100 mg by mouth daily at bedtime. No current facility-administered medications for this visit. Allergies: Patient has no known allergies. ROS: General (negative for fatigue, malaise, weight loss/gain) HEENT (negative for headache, earache, recent vision changes, sinus pain, sore throat) Respiratory (no recent shortness of breath, hemoptysis) CV (negative for chest tightness, palpitations) Musculoskeletal (see HPI) Psych (no depression, anxiety) Avi Dobbins MD [facility] 06-24-2024 History of Present illness Narrative Associated Order(s): Large Joint Arthro/Inj: R knee joint Post-Procedure Diagnose(s): Acute pain of right knee; Primary osteoarthritis of right knee Avi Dobbins MD Department of Orthopaedics Orthopaedics [address] [place] [id number] Dept: [phone] Dept June 24, 2024 CHIEF COMPLAINT: Follow Up of the Right Knee and 3 weeks post visit right knee pain (Here for cortisone injection) HPI Patient states her pain is better since she has been taking the Celebrex. She is leaving on Monday for [place] and will need a refill before she leaves. Patient here for cortisone injection right knee. ASSESSMENT: M25.561 Acute pain of right knee (primary encounter diagnosis) M17.11 Primary osteoarthritis of right knee PLAN: Cortisone injection today as previously discussed OBJECTIVE: Ms. Josh Huffman is a pleasant 64 year old in no apparent distress. Gen:There were no vitals taken for this visit. Large Joint Arthro/Inj: R knee joint Informed Consent Consent Obtained: Verbal [employer] Protocol A moment to CARE was completed. SIGN IN Personnel directly involved with the procedure wore the appropriate PPE. Special Equipment: N/A Patient/Surrogate Stated/Verified: Patient name, Date of , Relevant allergies and Intended procedure TIME OUT Intended patient and procedure match the source document(s). Consent documented and matches the intended procedure. Relevant labs, photos, and/or imaging studies have been reviewed. Correct side/site marked and visible. Medications required for procedure verified. No fire risk assessment and interventions applicable. No implant(s) inserted. 06/24/2024 11:04 AM The procedure site was prepped in the usual sterile fashion. Site: R knee joint Medications: 40 mg triamcinolone acetonide 40 mg/mL Anesthetics: 4 mL lidocaine (PF) 10 mg/mL (1 %) Outcome: Tolerated well, no immediate complications Post-injection instructions were reviewed with the patient and the patient voiced understanding of these instructions. SIGN OUT No specimen collected. No instruments, equipment or retained foreign bodies applicable. Post-procedure follow-up management communicated and Plan of Care Visit completed when applicable Supporting Subjective Information Below: Past Surgical History: PAST SURGICAL HISTORY 02/07/2024: ARTHRS KNE SURG W/MENISCECTOMY MED/LAT W/SHVG; Right Comment: right knee, arthroscopic medial meniscectomy, lateral and patellofemoral chondroplasties 07/23/2012: COLONOSCOPY Comment: hemorrhoids, diverticulosis, advised 10-year follow-up 1988: HEART SURGERY HX Comment: at [facility], atrial septal defect repair 2002: LASIK; Right Comment: Right 2018: PAST SURGICAL HISTORY OF Comment: laser surg, greater and lesser saphenous veins, bilateral 1969: REMOVAL OF SPLEEN TOTAL Comment: traumatic No date: SKIN BIOPSY HX Comment: benign 2013: TOE SURGERY HX Comment: tendon repairs due to step into groundhog hole, second surgery same year due to atrophic changes 1975: TONSILLECTOMY HX 12/25/2020: US GUIDED PLANTAR FASCIOTOMY; Right Comment: Right Medications: Current Outpatient Medications Medication Sig celecoxib (CELEBREX) 200 mg capsule Take 1 capsule by mouth two times a day. levothyroxine (SYNTHROID) 100 mcg tablet Take 1 tablet by mouth two times a week. Mon & Monday levothyroxine (SYNTHROID) 112 mcg tablet Take 1 tablet by mouth five times a week. Monday-Monday cyanocobalamin, vitamin B-12, (VITAMIN B-12 ORAL) Take 500 mcg by mouth once daily. cholecalciferol, vitamin [...] mouth once daily. Includes Dandelion root 50mg lisinopril-hydrochlorothiazide 10-12.5 mg per tablet Take 1 tablet by mouth every morning. metoprolol succinate XL, long acting, (TOPROL XL) 100 mg Tb24 Take 100 mg by mouth daily at bedtime. No current facility-administered medications for this visit. Allergies: Patient has no known allergies. ROS: General (negative for fatigue, malaise, weight loss/gain) HEENT (negative for headache, earache, recent vision changes, sinus pain, sore throat) Respiratory (no recent shortness of breath, hemoptysis) CV (negative for chest tightness, palpitations) Musculoskeletal (see HPI) Psych (no depression, anxiety) Avi Dobbins MD documented in this encounter [facility] 06-03-2024 Note HNO ID: [id number] Author: AVI DOBBINS MD Service: ? Author Type: Physician Type: Progress Notes Filed: 06/03/2024 13:54 Note Text: Avi Dobbins MD Department of Orthopaedics Orthopaedics [address] [facility] [address] Dept: [phone] Dept June 03, 2024 CHIEF COMPLAINT: Established Patient of the Right Knee and 16 weeks 5 days post op right knee arthroscopy HPI Patient here for follow up right knee pain. Patient states on 05/25 she was playing hide and seek with 3 grand daughters and one of the girls was under her legs and she felt a pop in her right knee. She is having pain inside her knee again before her surgery. Taking 2 Aleve in the morning for the pain and helps her get ready in the mornings for work. She is back to walking up and down the steps one at time. She is leaving for [place] 2 weeks ago and will be doing some hiking. ASSESSMENT: M25.561 Acute pain of right knee (primary encounter diagnosis) PLAN: She does [place] tweaked the knee while playing with her grandchildren. Will try some strengthening and an anti-inflammatory for a few weeks. If she continues to have some troubles, would recommend a cortisone injection before her [place] trip. We can see her back on the ninth before her trip. OBJECTIVE: Ms. Josh Huffman is a pleasant 64 year old in no apparent distress. Gen:There were no vitals taken for this visit. nl development, non obese, no deformities ENT: Normocephalic, normal hearing, moist mucosa CV: Pulses:DP/PT= 2+ and symmetric, capillary refill < 2 secs, no peripheral edema/varicosities Skin: no rash, bruising or lesions. Good turgor. Psych: cooperative and appropriate, alert and oriented x 3, good mood and affect. Musculoskeletal: Patient walks with some mild antalgia. Scant effusion but not significant. Mild tenderness on the medial joint line but good range of motion overall with the knee. Imaging: Deferred today. Supporting Subjective Information Below: Past Surgical History: PAST SURGICAL HISTORY 02/07/2024: ARTHRS KNE SURG W/MENISCECTOMY MED/LAT W/SHVG; Right Comment: right knee, arthroscopic medial meniscectomy, lateral and patellofemoral chondroplasties 07/23/2012: COLONOSCOPY Comment: hemorrhoids, diverticulosis, advised 10-year follow-up 1988: HEART SURGERY HX Comment: at [facility], atrial septal defect repair 2002: LASIK; Right Comment: Right 2018: PAST SURGICAL HISTORY OF Comment: laser surg, greater and lesser saphenous veins, bilateral 1968: REMOVAL OF SPLEEN TOTAL Comment: traumatic No date: SKIN BIOPSY HX Comment: benign 2013: TOE SURGERY HX Comment: tendon repairs due to step into groundhog hole, second surgery same year due to atrophic changes 1975: TONSILLECTOMY HX 12/25/2020: US GUIDED PLANTAR FASCIOTOMY; Right Comment: Right Medications: Current Outpatient Medications Medication Sig levothyroxine (SYNTHROID) 100 mcg tablet Take 1 tablet by mouth two times a week. Mon AND Monday levothyroxine (SYNTHROID) 112 mcg tablet Take 1 tablet by mouth five times a week. Monday-Monday cyanocobalamin, vitamin B-12, (VITAMIN B-12 ORAL) Take 500 mcg by mouth once daily. cholecalciferol, vitamin [...] mouth once daily. Includes Dandelion root 50mg lisinopril-hydrochlorothiazide 10-12.5 mg per tablet Take 1 tablet by mouth every morning. metoprolol succinate XL, long acting, (TOPROL XL) 100 mg Tb24 Take 100 mg by mouth daily at bedtime. No current facility-administered medications for this visit. Allergies: Patient has no known allergies. ROS: General (negative for fatigue, malaise, weight loss/gain) HEENT (negative for headache, earache, recent vision changes, sinus pain, sore throat) Respiratory (no recent shortness of breath, hemoptysis) CV (negative for chest tightness, palpitations) Musculoskeletal (see HPI) Psych (no depression, anxiety) Avi Dobbins MD [facility] 06-03-2024 History of Present illness Narrative Avi Dobbins MD Department of Orthopaedics Orthopaedics [address] [facility] [address] Dept: [phone] Dept June 03, 2024 CHIEF COMPLAINT: Established Patient of the Right Knee and 16 weeks 5 days post op right knee arthroscopy HPI Patient here for follow up right knee pain. Patient states on 05/25 she was playing hide and seek with 3 grand daughters and one of the girls was under her legs and she felt a pop in her right knee. She is having pain inside her knee again before her surgery. Taking 2 Aleve in the morning for the pain and helps her get ready in the mornings for work. She is back to walking up and down the steps one at time. She is leaving for [place] 2 weeks ago and will be doing some hiking. ASSESSMENT: M25.561 Acute pain of right knee (primary encounter diagnosis) PLAN: She does Konik tweaked the knee while playing with her grandchildren. Will try some strengthening and an anti-inflammatory for a few weeks. If she continues to have some troubles, would recommend a cortisone injection before her [employer] trip. We can see her back on the ninth before her trip. OBJECTIVE: Ms. Josh Huffman is a pleasant 64 year old in no apparent distress. Gen:There were no vitals taken for this visit. nl development, non obese, no deformities ENT: Normocephalic, normal hearing, moist mucosa CV: Pulses:DP/PT= 2+ and symmetric, capillary refill < 2 secs, no peripheral edema/varicosities Skin: no rash, bruising or lesions. Good turgor. Psych: cooperative and appropriate, alert and oriented x 3, good mood and affect. Musculoskeletal: Patient walks with some mild antalgia. Scant effusion but not significant. Mild tenderness on the medial joint line but good range of motion overall with the knee. Imaging: Deferred today. Supporting Subjective Information Below: Past Surgical History: PAST SURGICAL HISTORY 02/07/2024: ARTHRS KNE SURG W/MENISCECTOMY MED/LAT W/SHVG; Right Comment: right knee, arthroscopic medial meniscectomy, lateral and patellofemoral chondroplasties 07/23/2012: COLONOSCOPY Comment: hemorrhoids, diverticulosis, advised 10-year follow-up 1988: HEART SURGERY HX Comment: at [facility], atrial septal defect repair 2002: LASIK; Right Comment: Right 2018: PAST SURGICAL HISTORY OF Comment: laser surg, greater and lesser saphenous veins, bilateral 1969: REMOVAL OF SPLEEN TOTAL Comment: traumatic No date: SKIN BIOPSY HX Comment: benign 2012: TOE SURGERY HX Comment: tendon repairs due to step into groundhog hole, second surgery same year due to atrophic changes 1975: TONSILLECTOMY HX 12/25/2020: US GUIDED PLANTAR FASCIOTOMY; Right Comment: Right Medications: Current Outpatient Medications Medication Sig levothyroxine (SYNTHROID) 100 mcg tablet Take 1 tablet by mouth two times a week. Mon & Monday levothyroxine (SYNTHROID) 112 mcg tablet Take 1 tablet by mouth five times a week. Monday-Monday cyanocobalamin, vitamin B-12, (VITAMIN B-12 ORAL) Take 500 mcg by mouth once daily. cholecalciferol, vitamin [...] mouth once daily. Includes Dandelion root 50mg lisinopril-hydrochlorothiazide 10-12.5 mg per tablet Take 1 tablet by mouth every morning. metoprolol succinate XL, long acting, (TOPROL XL) 100 mg Tb24 Take 100 mg by mouth daily at bedtime. No current facility-administered medications for this visit. Allergies: Patient has no known allergies. ROS: General (negative for fatigue, malaise, weight loss/gain) HEENT (negative for headache, earache, recent vision changes, sinus pain, sore throat) Respiratory (no recent shortness of breath, hemoptysis) CV (negative for chest tightness, palpitations) Musculoskeletal (see HPI) Psych (no depression, anxiety) Avi Dobbins MD documented in this encounter [facility] 03-25-2024 Note HNO ID: [id number] Author: AVI DOBBINS MD Service: ? Author Type: Physician Type: Progress Notes Filed: 03/25/2024 14:22 Note Text: Avi Dobbins MD Department of Orthopaedics Orthopaedics [address] [facility] [address] Dept: [phone] Dept March 25, 2024 CHIEF COMPLAINT: Post Op of the Right Knee and 6 weeks 5 days post op Right knee arthroscopic (medial menisectomy lateral and PF chondroplasties). HPI Patient here for post op visit right knee arthroscopy. Patient denies any day. She is back to doing activities she has been unable to do in the past 2 years. She still gets some pain but feels it is arthritic pain and not post op pain. ASSESSMENT: S83.231D Complex tear of medial meniscus of right knee as current injury, subsequent encounter (primary encounter diagnosis) SUMMARY/PLAN: She's doing very well. Much improved from prior to surgery. All activities. Follow up as necessary. Exam: Healed. No swelling. Full ROM. Supporting Information Below: Medications: Current Outpatient Medications Medication Sig levothyroxine (SYNTHROID) 100 mcg tablet Take 1 tablet by mouth two times a week. Mon AND Monday levothyroxine (SYNTHROID) 112 mcg tablet Take 1 tablet by mouth five times a week. Monday-Monday cyanocobalamin, vitamin B-12, (VITAMIN B-12 ORAL) Take 500 mcg by mouth once daily. cholecalciferol, vitamin [...] mouth once daily. Includes Dandelion root 50mg lisinopril-hydrochlorothiazide 10-12.5 mg per tablet Take 1 tablet by mouth every morning. metoprolol succinate XL, long acting, (TOPROL XL) 100 mg Tb24 Take 100 mg by mouth daily at bedtime. No current facility-administered medications for this visit. Allergies: Patient has no known allergies. Avi Dobbins MD [facility] 03-25-2024 History of Present illness Narrative Avi Dobbins MD Department of Orthopaedics Orthopaedics [address] [facility] [address] Dept: [phone] Dept March 25, 2024 CHIEF COMPLAINT: Post Op of the Right Knee and 6 weeks 5 days post op Right knee arthroscopic (medial menisectomy lateral and PF chondroplasties). HPI Patient here for post op visit right knee arthroscopy. Patient denies any day. She is back to doing activities she has been unable to do in the past 2 years. She still gets some pain but feels it is arthritic pain and not post op pain. ASSESSMENT: S83.231D Complex tear of medial meniscus of right knee as current injury, subsequent encounter (primary encounter diagnosis) SUMMARY/PLAN: She's doing very well. Much improved from prior to surgery. All activities. Follow up as necessary. Exam: Healed. No swelling. Full ROM. Supporting Information Below: Medications: Current Outpatient Medications Medication Sig levothyroxine (SYNTHROID) 100 mcg tablet Take 1 tablet by mouth two times a week. Mon & Monday levothyroxine (SYNTHROID) 112 mcg tablet Take 1 tablet by mouth five times a week. Monday-Monday cyanocobalamin, vitamin B-12, (VITAMIN B-12 ORAL) Take 500 mcg by mouth once daily. cholecalciferol, vitamin [...] mouth once daily. Includes Dandelion root 50mg lisinopril-hydrochlorothiazide 10-12.5 mg per tablet Take 1 tablet by mouth every morning. metoprolol succinate XL, long acting, (TOPROL XL) 100 mg Tb24 Take 100 mg by mouth daily at bedtime. No current facility-administered medications for this visit. Allergies: Patient has no known allergies. Avi Dobbins MD documented in this encounter [facility] 02-19-2024 Note HNO ID: [id number] Author: COURTNEY COCHRAN PA-C Service: ? Author Type: Physician Die Designer Apprentice Type: Progress Notes Filed: 02/19/2024 11:45 Note Text: Courtney Cochran PA-C Department of Orthopaedics Orthopaedics [address] [place] [address] Dept: [phone] Dept February 19, 2024 CHIEF COMPLAINT: Post Op and Follow Up of the Right Knee. ASSESSMENT: S83.231D Complex tear of medial meniscus of right knee as current injury, subsequent encounter (primary encounter diagnosis) M17.11 Primary osteoarthritis of right knee SUMMARY/PLAN: Patient presents 12 days status post right knee arthroscopy. She is doing very well. Notes that her pain is much improved since surgery, has been able to sleep through the night. Some normal stiffness which has been resolving with stretching. We discussed working on range of motion and some gentle scar massage. Activities as tolerated. Follow-up in 1 month. Exam: Incision sites are all well-healed, there is a mild but appropriate effusion of the right knee. Imaging: Deferred today Ms. Josh Huffman was advised as to contrast therapies and/or to take analgesics/anti-inflammatories as needed and all contraindications were reviewed. Supporting Information Below: Medications: Current Outpatient Medications Medication Sig levothyroxine (SYNTHROID) 100 mcg tablet Take 1 tablet by mouth two times a week. Mon AND Monday levothyroxine (SYNTHROID) 112 mcg tablet Take 1 tablet by mouth five times a week. Monday-Monday cholecalciferol, vitamin D3, (VITAMIN D3 ORAL) Take 2,000 Units by mouth once daily. psyllium husk (METAMUCIL ORAL) Take 5.8 g by mouth once daily. diclofenac (VOLTAREN) 1 % topical gel Apply 2 g to affected area four times daily. aspirin, enteric coated (ECOTRIN LOW STRENGTH) 81 mg EC tablet Take 1 tablet by mouth once daily. MILK THISTLE ORAL Take 1,000 mg by mouth once daily. Includes Dandelion root 50mg lisinopril-hydrochlorothiazide 10-12.5 mg per tablet Take 1 tablet by mouth every morning. metoprolol succinate XL, long acting, (TOPROL XL) 100 mg Tb24 Take 100 mg by mouth daily at bedtime. cyanocobalamin, vitamin B-12, (VITAMIN B-12 ORAL) Take 500 mcg by mouth once daily. KELP ORAL Take 325 mcg by mouth daily at bedtime. iodine supplement No current facility-administered medications for this visit. Allergies: Patient has no known allergies. This note was partially generated using [employer] voice recognition system, and there may be some incorrect words, spellings, and punctuation that were not noted in checking the note before saving. Courtney Cochran PA-C [facility] 02-19-2024 History of Present illness Narrative Courtney Cochran PA-C Department of Orthopaedics Orthopaedics [address] [facility] [address] Dept: [phone] Dept February 19, 2024 CHIEF COMPLAINT: Post Op and Follow Up of the Right Knee. ASSESSMENT: S83.231D Complex tear of medial meniscus of right knee as current injury, subsequent encounter (primary encounter diagnosis) M17.11 Primary osteoarthritis of right knee SUMMARY/PLAN: Patient presents 12 days status post right knee arthroscopy. She is doing very well. Notes that her pain is much improved since surgery, has been able to sleep through the night. Some normal stiffness which has been resolving with stretching. We discussed working on range of motion and some gentle scar massage. Activities as tolerated. Follow-up in 1 month. Exam: Incision sites are all well-healed, there is a mild but appropriate effusion of the right knee. Imaging: Deferred today Ms. Josh Huffman was advised as to contrast therapies and/or to take analgesics/anti-inflammatories as needed and all contraindications were reviewed. Supporting Information Below: Medications: Current Outpatient Medications Medication Sig levothyroxine (SYNTHROID) 100 mcg tablet Take 1 tablet by mouth two times a week. Mon & Monday levothyroxine (SYNTHROID) 112 mcg tablet Take 1 tablet by mouth five times a week. Monday-Monday cholecalciferol, vitamin D3, (VITAMIN D3 ORAL) Take 2,000 Units by mouth once daily. psyllium husk (METAMUCIL ORAL) Take 5.8 g by mouth once daily. diclofenac (VOLTAREN) 1 % topical gel Apply 2 g to affected area four times daily. aspirin, enteric coated (ECOTRIN LOW STRENGTH) 81 mg EC tablet Take 1 tablet by mouth once daily. MILK THISTLE ORAL Take 1,000 mg by mouth once daily. Includes Dandelion root 50mg lisinopril-hydrochlorothiazide 10-12.5 mg per tablet Take 1 tablet by mouth every morning. metoprolol succinate XL, long acting, (TOPROL XL) 100 mg Tb24 Take 100 mg by mouth daily at bedtime. cyanocobalamin, vitamin B-12, (VITAMIN B-12 ORAL) Take 500 mcg by mouth once daily. KELP ORAL Take 325 mcg by mouth daily at bedtime. iodine supplement No current facility-administered medications for this visit. Allergies: Patient has no known allergies. This note was partially generated using [employer] voice recognition system, and there may be some incorrect words, spellings, and punctuation that were not noted in checking the note before saving. Courtney Cochran PA-C AMB ROOMING INTAKE FLOWSHEET DATA Pain Pain Level: 2 Pain Location: Knee-Right Description: Aching Duration Amount of Time: 12 Duration Units: Days Frequency: Intermittent Intervention/Comfort measure: Cold, Medication, Relaxation, Reposition (Tylenol, ice) Patient presents with: Right Knee - Post Op, Follow Up Patient is 1 week 5 days post op R knee arthroscopic medial menisectomy, lateral and PF chondroplasties. Minimal pain. Using ice and tylenol as needed. documented in this encounter [facility] 02-19-2024 Note HNO ID: [id number] Author: DARCY MONTELONGO RN Service: ? Author Type: Registered Nurse Type: Progress Notes Filed: 02/19/2024 11:45 Note Text: AMB ROOMING INTAKE FLOWSHEET DATA Pain Pain Level: 2 Pain Location: Knee-Right Description: Aching Duration Amount of Time: 12 Duration Units: Days Frequency: Intermittent Intervention/Comfort measure: Cold, Medication, Relaxation, Reposition (Tylenol, ice) Patient presents with: Right Knee - Post Op, Follow Up Patient is 1 week 5 days post op R knee arthroscopic medial menisectomy, lateral and PF chondroplasties. Minimal pain. Using ice and tylenol as needed. [facility] 02-07-2024 Note HNO ID: [id number] Author: VICKEY, MIN, OIL DEVELOPER.ONCOLOGY ACCOUNT SPECIALIST Service: Anesthesiology Author Type: Nurse Velocity Shooter Type: Anesthesia Procedure Notes Filed: 02/07/2024 11:44 Note Text: ANESTHESIOLOGY PROCEDURE NOTE Airway General Information Procedure Start Time/Medication Administration: 02/07/2024 11:40 AM Procedure End Time: 02/07/2024 11:40 AM Patient location during procedure: OR Timeout Performed Pre-procedure: timeout performed Consent Obtained: Yes Patient identity confirmed: arm band and patient sedated or unresponsive Staffing Anesthesiologist: Melly Britton MD Performed by: anesthesiologist Indications and Patient Condition Indications for airway management: anesthesia Preoxygenated: yes anesthesia circuit Patient position: sniffing Method: asleep Airway Accessory: LMA Final Airway Details Final airway type: supraglottic airway Number of attempts at approach: 1 Final Supraglottic Airway: i-gel Size 3 Seal Adequate: yes SIGNATURE: Min Rojas APRN.ONCOLOGY ACCOUNT SPECIALIST PATIENT NAME: Josh Huffman DATE: February 07, 2024 TIME: 11:44 AM CSN: [id number] [facility] 01-24-2024 Instructions Mahsa Matias APRN.SALES STRATEGY MANAGER - 01/24/2024 9:48 AM EDT PATIENT PREOPERATIVE INSTRUCTIONS Avi Dobbins MD has scheduled you for your procedure at this surgery center: [facility]: [phone] -- [address] [facility] [address]. Please read below carefully for your personalized instructions. Dietary Restrictions: - No solid food after midnight. - You may have 12 ounces of clear liquids (water, clear juices such as apple juice or gatorade, carbonated beverages, clear tea, black coffee, jello) until 2 hours before scheduled arrival at facility. Medications: Use nasal ointment morning of surgery Unless instructed differently below, stay on all of your medications until your surgery. If you start any new medications after today's visit, please contact your surgeon. Medications you will take the morning of surgery with a small sip of water LEVOTHYROXINE Is Patient Diabetic:No Blood Thinning Medications: - Stop NSAIDS (Ibuprofen, Advil, Aleve, Motrin, Celebrex, Mobic, etc.) 7 days before surgery, as directed by your surgeon. - Stop Aspirin 7 days before surgery, as directed by your surgeon. - Stop Vitamin E, ALL multi-vitamins, herbals and dietary supplements 7 days before surgery. - You may take Tylenol (Acetaminophen) or any of your pain medications that do not contain aspirin or NSAIDS as needed. Important Reminders: - If you use CPAP/BIPAP, bring the machine with you to the surgery center. - If you are prescribed inhalers for breathing, continue using them. If you are on dialysis, please check with your dialysis center or club attendant to see if any adjustments need to be made to your schedule for the week of your surgery - Candy, mints, and tobacco products are NOT permitted the morning of surgery. - Hearing aids, dentures and glasses may be worn the morning of surgery. - NO jewelry, body piercings, makeup, hairpins or contacts are to be worn the day of surgery. If you develop symptoms such as a fever, cold, or flu, or have other changes to your health within TWO DAYS of scheduled surgery or the morning of surgery, please contact the surgery center above. Personal Belongings: -Please have photo ID and insurance cards. -If you do not have a copy of advance directives on file with us, please bring a copy with you on the day of surgery. - Leave ALL valuables and money at home or with family members. For Outpatient Procedures: - YOU MUST HAVE A RESPONSIBLE MOP HANDLE ASSEMBLER TAKE YOU HOME. A STAFF MIDWIFE/APPRENTICESHIP DIRECTOR OR PANEL COVERER CANNOT BE MADE A RESPONSIBLE MOP HANDLE ASSEMBLER. - We recommend that a responsible person stays with you overnight to take care of you. - You cannot stay in a hotel alone after outpatient surgery. You will not be permitted to have your surgery, if you do not have someone to take care of you. Arrival Time for Surgery: - The Surgery Center or hospital where you are having surgery will call the afternoon before surgery (or Monday for Monday surgery) with a scheduled arrival time. - If you have not heard by 4 pm, please contact the surgery center above. Please be aware that emergency situations arise, which may delay or change your surgical time. If this happens, we will notify you as soon as possible and regret any inconvenience. If you already have an Advance Directive, please fax a copy to [phone] or email to for it to be added to your chart. If you do not have an Advance Directive, you can find the appropriate form and more information at [email or web address]. We recommend that you complete the Advance Directive form found on the website and bring it with you the day of your surgery. It can be witnessed and scanned into your chart that day. Mahsa Matias APRN.CNS documented in this encounter [facility] 01-24-2024 History and physical note PREANESTHESIA CONSULT CLINIC TELEHEALTH VISIT Patient has been identified by name and date of : Yes This is a virtual visit using [employer] Zoom Video Visit. It require patient-provider interaction for the medical decision making as documented below. Reason for contact: PACC visit Accompanied by: Self This is a virtual visit using Virtual Visit (Audio/Visual)I have discussed the nature of this visit with the patient which will occur via Distance Health (Phone, Virtual Visit) and she agrees to proceed with this interaction. It required patient-provider interaction for the medical decision making as documented below. I have communicated my name and active licensure. The patient's identity and physical location were verified at the time of this visit. Either the patient or their legal commissary representative has been informed of the risks and benefits of and alternatives to treatment through a remote evaluation and consents to proceed with the evaluation remotely. Scheduled Surgery: ARTHROSCOPY KNEE MENISCECTOMY MEDIAL OR LATERAL - Right with Avi Dobbins MD on 02/07/2024 Subjective CHIEF COMPLAINT: No chief complaint on file. Patient stated I have right knee pain and will need surgery HPI: This is a 63 year old female who presents with patient stated she has had right knee pain for the last year. Pain has increased to 6/10 on pain scale,,aching, sharp pain. Consulted D Tear Medial Meniscus Right Knee:Current Injury:Subsequent Encounter.. Esteban. After exam, MRI Right Knee, Dx with Com[gale ACTIVE PROBLEM LIST Psoriasis (Normal Spontaneous Vaginal Delivery) Menopausal State Htn (Hypertension) Pap Smear for Cervical Cancer Screening Foot Pain Heel Spur Plantar Fasciitis Asd (Atrial Septal Defect) Tia (Transient Ischemic Attack) Ascending aorta dilation (4.3 cm on non-contrast CT 10/2019, and on CT angiogram 07/2023) Normal coronary arteries, Coronary Calcium Score = 0 (10/2019) Hypothyroidism Prediabetes Hypercholesterolemia Elevated Lipoprotein(a) Vitamin D Deficiency Elevated Uric Acid in Blood Bilateral Hip Bursitis Obesity, Class I, Bmi 30-34.9 Abnormal EKG during exercise stress test PAST MEDICAL HISTORY Diagnosis Date Ascending aorta dilation (4.3 cm on non-contrast CT 10/2019) 10/31/2019 ASD (atrial septal defect) 1988 repaired at [facility] at age 27 Bilateral hip bursitis 11/2021 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 Elevated uric acid in blood 10/31/2019 without gout Heel spur resolved with Tenex Hypercholesterolemia 10/31/2019 Hypertension on medication since 2012 Hypothyroidism 2017 Menopausal state Normal coronary arteries, Coronary Calcium Score = 0 (10/2019) 10/31/2019 (normal spontaneous vaginal delivery) 1987, 1989, 1993 1987: 8'12; 1989 9'3; 1993: 9'1 Prediabetes 10/31/2019 Psoriasis scalp Right plantar fasciitis treated with Tenex TIA (transient ischemic attack) 1988 during first , diagnosed ASD, repaired at [facility] after delivery Vitamin D deficiency 10/31/2019 PAST SURGICAL HISTORY Procedure Laterality Date COLONOSCOPY 07/23/2012 hemorrhoids, diverticulosis, advised 10-year follow-up HEART SURGERY HX 1987 at [facility], atrial septal defect repair LASIK Right 2001 Right PAST SURGICAL HISTORY OF 2018 laser surg, greater and lesser saphenous veins, bilateral REMOVAL OF SPLEEN TOTAL 1968 traumatic SKIN BIOPSY HX benign TOE SURGERY [...] 10/16/1975 Quit date: 10/16/1979 Years since quittin.3 Smokeless tobacco: Never Vaping Use Vaping Use: Never used Substance Use Topics Alcohol use: Yes Alcohol/week: 14.0 standard drinks of alcohol Types: 14 Shots of liquor per week Comment: 2 glasses of scotch nightly Drug use: Never ALLERGIES No Known Allergies MEDICATIONS: Current Outpatient Medications Medication Sig meloxicam (MOBIC) 15 mg tablet Take 1 tablet by mouth once daily. (Patient not taking: Reported on 12/18/2023) levothyroxine (SYNTHROID) 100 mcg tablet Take 1 tablet by mouth four times a week. Mon & Monday levothyroxine (SYNTHROID) 112 mcg tablet Take 1 tablet by mouth three times a week. Monday-Monday cyanocobalamin, vitamin B-12, (VITAMIN B-12 ORAL) Take 500 mcg by mouth once daily. cholecalciferol, vitamin [...] mouth once daily. Includes Dandelion root 50mg lisinopril-hydrochlorothiazide 10-12.5 mg per tablet Take 1 tablet by mouth every morning. metoprolol succinate XL, long acting, (TOPROL XL) 100 mg Tb24 Take 100 mg by mouth daily at bedtime. No current facility-administered medications for this visit. COVID VACCINATION STATUS: Fully vaccinated REVIEW OF SYSTEMS: Pain Assessment: General: No weight loss, malaise or fevers.BMI 32.3 Neuro: No history of TIA's, stroke, SALES STRATEGY MANAGER tumor, impaired sensorium, hemiplegia, paraplegia or quadraplegia. No neurological symptoms or problems., H/O TIA 1987 no residual effects Respiratory: No history of current cough or dyspnea, or pneumonia in the past 6 weeks. No history of respiratory/pulmonary symptoms or problems. Cardiovascular: Positive for: HLD, Hypertension, H/O Ascending Aortic Dilatation H/O ASD had surgery 1987 GI: No history of GI symptoms or problems. No history of esophageal varices, recent ascites, or ETOH greater than 2 drinks per day. : No history of dysuria, frequency or incontinence,, stones or chronic kidney disease END POLISHER: Negative for abnormal vaginal bleeding, abnormal vaginal discharge., N/A : N/A, No LMP recorded. Patient is postmenopausal. Endocrine: Hypothyroidism takes med Prediabetes Hematology: No history of bleeding or clotting disorder. Pt is not taking anti-coagulation or platelet medications. No history of hematological symptoms or problems. Oncology: No history of CA metastasis, chemo within 30 days, or radiotherapy within 90 days. Has not lost 10% of body wt in 6 months. No history of oncological symptoms or problems. Psych: No history of psychiatric symptoms or problems. Musculoskeletal: Joint pain right knee/both hips/shoulders Skin: Negative for lesions, rash and itching. Objective PHYSICAL EXAM: Resp 16 Ht 5' 9 (1.75m) Wt 219 lb (99.3kg) BMI 32.33 kg/(m^2). Patient unable to assess pulse with examiner Weight as of 6 weeks ago VIDEO EXAM: (if completed, performed via video enabled technology) GENERAL: alert and appropriate, in no distress, well-hydrated, well nourished, and happy, smiling, interactive SKIN: no rash noted HEAD: normocephalic, no abnormality or lesion noted EYES: no injection and visual acuity is grossly normal EARS: hearing grossly normal NOSE: external nose normal without rhinorrhea OROPHARYNX: moist mucus membranes NECK: full ROM, no cervical LNs noted RESPIRATORY: breathing non-labored and resp rate 16 CHEST: equal chest rise with normal respiratory effort HEART: Patient unable to assess pulse with examiner ABDOMEN: soft and non-tender BACK: back normal in appearance, spine with FROM EXTREMITIES: full head ROM NEUROLOGIC: no obvious deficit Diagnostic tests reviewed for today's visit: Lab Value Units Date High Low HB 14.4 g/dL 08/01/2023 15.5 11.5 HCT 42.2 % 08/01/2023 46.0 36.0 WBC 5.41 k/uL 08/01/2023 11.00 3.70 PLT 282 k/uL 08/01/2023 400 150 NA 137 mmol/L 08/01/2023 144 136 K 4.2 mmol/L 08/01/2023 5.1 3.7 GLUC 108 mg/dL 08/01/2023 99 74 BUN 13 mg/dL 08/01/2023 21 7 CREAT 0.76 mg/dL 08/01/2023 0.96 0.58 PTSEC No results within date range. INR No results within date range. APTT No results within date range. ALT 19 U/L 08/01/2023 38 7 AST 29 U/L 08/01/2023 35 13 TBILI 0.7 mg/dL 08/01/2023 1.3 0.2 TSH 5.400 mIU/L 08/01/2023 4.200 0.270 Lab Value Units Date High Low HCGQT No results within date range. UHCG No results within date range. HCG, BODY* No results within date range. Lab Value Units Date High Low ABORHD No results within date range. ABSCREEN No results within date range. Hemoglobin A1C (%) Date Value 08/01/2023 5.9 10/31/2019 5.7 Most recent labs Most recent EKG: of 08/01/23 in [facility] Procedure Date : Aug 01 2023 13:00:16 Edit Date : Aug 06 2023 11:24:47 Diagnosis: NORMAL SINUS RHYTHM NORMAL ECG Confirmed by ANGEL ZAVALETA MD ([id number]) on 08/06/2023 11:24:45 AM EXERCISE STRESS TEST in [facility] of 08/01/23 Stress ECG Summary: The patient's resting heart rate was 83 bpm and blood pressure was 154/96 mmHg. The patient exercised according to the Kurt 5% protocol. The estimated end-exercise MET level achieved using the FRIEND equation was 6.1, which is within the 50th to 75th percentile for age and sex. The estimated end-exercise MET level achieved using the previous ACSM equation was 7.0. The test was terminated due to joint pain and a significant asymptomatic drop in systolic blood pressure and the total exercise time was 8 minutes and 0 seconds. No symptoms provoked during stress. The maximum heart rate was 176 bpm, which is 114% of the predicted heart rate for age. This is an adequate heart rate response. Peak blood pressure was 134/80 mmHg. The double product achieved was [address]. Impression/Recommendations ASSESSMENT: Obesity, Class I, BMI 30-34.9 Assessment: BMI 32.3 Hypercholesterolemia Assessment: not on med ,stable Prediabetes Assessment: monitored per PCP Hypothyroidism Assessment: takes med ,monitored per PCP Ascending aorta dilation (4.3 cm on non-contrast CT 10/2019, and on CT angiogram 07/2023) Assessment: monitored per PCP TIA (transient ischemic attack) Assessment: during first , diagnosed ASD, repaired at [facility] after delivery ASD (atrial septal defect) Assessment: repaired in 1987 takes ASA 81 mg daily, patient to check with PCP when to stop pr eop HTN (hypertension) Assessment: takes med ,monitgored per PCP METS: Participate in strenuous sport, such as swimming, singles tennis, football, basketball, or skiing (7.50 METs) ASA Class 3 ANESTHESIA FINDINGS: Intubation History: No history of difficult intubation Significant Anesthesia Considerations: None Airway Exam: General: Normal appearance and bmi 32.3 Mallampati Score is CLASS III ULBT: Class I - Lower incisors can bite the upper lip above the harinder line Neck: Normal appearance and function, Distance from hyoid to mentum during neck extension is at least 3 finger breaths Mouth: Normal tongue size Dentition: Intact Airway History: No abnormal airway history STOP BANG Score: Criteria: Snoring Age over 50 (63 year old) Score = 2 PLAN: Pt optimally prepared for surgery, pending day of surgery BMP CONSULTS: Patient does not require consults for optimization at this time. The Following Tests/Procedures Have Been Initiated: Orders Placed This Encounter BMP Standing Status: Future Standing Expiration Date: 04/23/2024 Planned Anesthetic: Per anesthesia choice Instructions Given to Patient: Patient given verbal instructions and voices comprehension and compliance. Copy sent electronically via My Chart, email, or mobile device. I spent a total of 25 minutes on the date of the service which included performing a medically appropriate examination This is a virtual visit. It required patient-provider interaction for the medical decision making as documented above. SIGNATURE: Mahsa Matias APRN.CNS PATIENT NAME: Josh Huffman DATE: 01/24/24 TIME: 9:47 AM PAGER/CONTACT #: documented in this encounter [facility] 01-23-2024 Miscellaneous Notes Peer to peer scheduled on 01/29/2024 at 11:[address] Yamileth Faust. documented in this encounter [facility] 01-11-2024 Note HNO ID: [id number] Author: AVI DOBBINS MD Service: ? Author Type: Physician Type: Progress Notes Filed: 01/17/2024 09:36 Note Text: Avi Dobbins MD Department of Orthopaedics Orthopaedic Surgery [facility] [address] [facility] [address] Dept: [phone] Dept January 11, 2024 CHIEF COMPLAINT: Follow Up and Follow Up Tests Results of the Right Knee (MRI) HPI Patient is here today for a follow up for her right knee, and to discuss MRI results. ASSESSMENT: S83.231D Complex tear of medial meniscus of right knee as current injury, subsequent encounter (primary encounter diagnosis) M17.11 Primary osteoarthritis of right knee PLAN: We reviewed the risks, benefits, alternatives and potential complications with op and non-op. She would like to proceed with an arthroscopy. OBJECTIVE: Ms. Josh Huffman is a pleasant 63 year old in no apparent distress. Gen:There were no vitals taken for this visit. nl development, non obese, no deformities ENT: Normocephalic, normal hearing, moist mucosa CV: Pulses:DP/PT= 2+ and symmetric, capillary refill < 2 secs, no peripheral edema/varicosities Skin: no rash, bruising or lesions. Good turgor. Psych: cooperative and appropriate, alert and oriented x 3, good mood and affect. Musculoskeletal: Stable exam from prior visit Imaging: IMPRESSION: COMPLEX TEAR OF THE MEDIAL MENISCUS. DEGENERATIVE CHONDRAL CHANGES DESCRIBED. Occupational Therapy Technician: PSCB Transcribe Date/Time: Jan 01 2024 9:23A Dictated by : DELMA OAKES MD This examination was interpreted and the report reviewed and electronically signed by: DELMA OAKES MD on Jan 01 2024 9:25AM EST Results-Findings * * *Final Report* * * DATE OF EXAM: Dec 30 2023 1:26PM QBM 0213 - MRI KNEE WO IVCON RT / PROCEDURE REASON: multiple diagnoses * * * * Physician Interpretation * * * * EXAMINATION: MRI RIGHT KNEE WITHOUT CONTRAST CLINICAL HISTORY: Tear of medial meniscus of right knee, current, unspecified tear type, subsequent encounter Primary osteoarthritis of right knee TECHNIQUE: Routine non-contrast MRI of the knee MQ: MRK_2B COMPARISON: None RESULT: MENISCI: Medial Meniscus: Complex tear in the posterior horn and body Lateral Meniscus: Degenerative changes without a tear LIGAMENTS: ACL: Intact PCL: Intact MCL: Intact LCL Complex: Intact CARTILAGE: Medial Femoral Condyle: Small area(s) of high grade (greater than 50% thickness) partial thickness cartilage loss and or fissuring along the far medial margin of the joint. Medial Tibial Plateau: Normal Lateral Femoral Condyle: Normal Lateral Tibial Plateau: Normal Patella: Large area(s) of full thickness cartilage loss/fissuring Trochlea: Small area(s) of low grade (less than 50% thickness) partial thickness cartilage loss and or fissuring TENDONS: The distal quadriceps and patellar tendons are intact. The popliteus tendon is intact. BONES AND MARROW: No evidence of fracture or bone marrow replacing process. MUSCLES: Muscle bulk and signal intensity are normal. JOINT FLUID AND SYNOVIUM: Small joint effusion. No synovitis. Small Campbell's cyst. OTHER: No other significant abnormality identified. Supporting Subjective Information Below: Past Surgical History: PAST SURGICAL HISTORY Procedure Laterality Date COLONOSCOPY 07/23/2012 hemorrhoids, diverticulosis, advised 10-year follow-up HEART SURGERY HX 1987 at [facility], atrial septal defect repair LASIK Right 2001 Right PAST SURGICAL HISTORY OF 2018 laser surg, greater and lesser saphenous veins, bilateral REMOVAL OF SPLEEN TOTAL 1968 traumatic SKIN BIOPSY HX benign TOE SURGERY HX 2012 tendon repairs due to step into groundhog hole, second surgery same year due to atrophic changes TONSILLECTOMY HX 1975 US GUIDED PLANTAR FASCIOTOMY Right 12/25/2020 Right Medications: Current Outpatient Medications Medication Sig levothyroxine (SYNTHROID) 100 mcg tablet Take 1 tablet by mouth four times a week. Mon AND Monday levothyroxine (SYNTHROID) 112 mcg tablet Take 1 tablet by mouth three times a week. Monday-Monday cyanocobalamin, vitamin B-12, (VITAMIN B-12 ORAL) Take 500 mcg by mouth once daily. cholecalciferol, vitamin [...] mouth once daily. Includes Dandelion root 50mg lisinopril-hydrochlorothiazide 10-12.5 mg per tablet Take 1 tablet by mouth every morning. metoprolol succinate XL, long acting, (TOPROL XL) 100 mg Tb24 Take 100 mg by mout (more content not included)... [facility] 01-11-2024 History of Present illness Narrative Avi Dobbins MD Department of Orthopaedics Orthopaedic Surgery [facility] [address] [address] [facility] [address] Dept: [phone] Dept January 11, 2024 CHIEF COMPLAINT: Follow Up and Follow Up Tests Results of the Right Knee (MRI) HPI Patient is here today for a follow up for her right knee, and to discuss MRI results. ASSESSMENT: S83.231D Complex tear of medial meniscus of right knee as current injury, subsequent encounter (primary encounter diagnosis) M17.11 Primary osteoarthritis of right knee PLAN: We reviewed the risks, benefits, alternatives and potential complications with op and non-op. She would like to proceed with an arthroscopy. OBJECTIVE: Ms. Josh Huffman is a pleasant 63 year old in no apparent distress. Gen:There were no vitals taken for this visit. nl development, non obese, no deformities ENT: Normocephalic, normal hearing, moist mucosa CV: Pulses:DP/PT= 2+ and symmetric, capillary refill < 2 secs, no peripheral edema/varicosities Skin: no rash, bruising or lesions. Good turgor. Psych: cooperative and appropriate, alert and oriented x 3, good mood and affect. Musculoskeletal: Stable exam from prior visit Imaging: IMPRESSION: COMPLEX TEAR OF THE MEDIAL MENISCUS. DEGENERATIVE CHONDRAL CHANGES DESCRIBED. Occupational Therapy Technician: CHELSEA Transcribe Date/Time: Jan 01 2024 9:23A Dictated by : DELMA OAKES MD This examination was interpreted and the report reviewed and electronically signed by: DELMA OAKES MD on Jan 01 2024 9:25AM EST Results-Findings * * *Final Report* * * DATE OF EXAM: Dec 30 2023 1:26PM QBM 0213 - MRI KNEE WO OLIVIER RT / PROCEDURE REASON: multiple diagnoses * * * * Physician Interpretation * * * * EXAMINATION: MRI RIGHT KNEE WITHOUT CONTRAST CLINICAL HISTORY: Tear of medial meniscus of right knee, current, unspecified tear type, subsequent encounter Primary osteoarthritis of right knee TECHNIQUE: Routine non-contrast MRI of the knee MQ: MRK_2B COMPARISON: None RESULT: MENISCI: Medial Meniscus: Complex tear in the posterior horn and body Lateral Meniscus: Degenerative changes without a tear LIGAMENTS: ACL: Intact PCL: Intact MCL: Intact LCL Complex: Intact CARTILAGE: Medial Femoral Condyle: Small area(s) of high grade (greater than 50% thickness) partial thickness cartilage loss and or fissuring along the far medial margin of the joint. Medial Tibial Plateau: Normal Lateral Femoral Condyle: Normal Lateral Tibial Plateau: Normal Patella: Large area(s) of full thickness cartilage loss/fissuring Trochlea: Small area(s) of low grade (less than 50% thickness) partial thickness cartilage loss and or fissuring TENDONS: The distal quadriceps and patellar tendons are intact. The popliteus tendon is intact. BONES AND MARROW: No evidence of fracture or bone marrow replacing process. MUSCLES: Muscle bulk and signal intensity are normal. JOINT FLUID AND SYNOVIUM: Small joint effusion. No synovitis. Small Campbell's cyst. OTHER: No other significant abnormality identified. Supporting Subjective Information Below: Past Surgical History: PAST SURGICAL HISTORY Procedure Laterality Date COLONOSCOPY 07/23/2012 hemorrhoids, diverticulosis, advised 10-year follow-up HEART SURGERY HX 1987 at [facility], atrial septal defect repair LASIK Right 2001 Right PAST SURGICAL HISTORY OF 2018 laser surg, greater and lesser saphenous veins, bilateral REMOVAL OF SPLEEN TOTAL 1969 traumatic SKIN BIOPSY HX benign TOE SURGERY HX 2013 tendon repairs due to step into groundhog hole, second surgery same year due to atrophic changes TONSILLECTOMY HX 1975 US GUIDED PLANTAR FASCIOTOMY Right 12/25/2020 Right Medications: Current Outpatient Medications Medication Sig levothyroxine (SYNTHROID) 100 mcg tablet Take 1 tablet by mouth four times a week. Mon & Monday levothyroxine (SYNTHROID) 112 mcg tablet Take 1 tablet by mouth three times a week. Monday-Monday cyanocobalamin, vitamin B-12, (VITAMIN B-12 ORAL) Take 500 mcg by mouth once daily. cholecalciferol, vitamin [...] mouth once daily. Includes Dandelion root 50mg lisinopril-hydrochlorothiazide 10-12.5 mg per tablet Take 1 tablet by mouth every morning. metoprolol succinate XL, long acting, (TOPROL XL) 100 mg Tb24 Take 100 mg by mouth daily at bedtime. meloxicam (MOBIC) 15 mg tablet Take 1 tablet by mouth once daily. (Patient not taking: Reported on 12/18/2023) No current facility-administered medications for this visit. Allergies: Patient has no known allergies. ROS: General (negative for fatigue, malaise, weight loss/gain) HEENT (negative for headache, earache, recent vision changes, sinus pain, sore throat) Respiratory (no recent shortness of breath, hemoptysis) CV (negative for chest tightness, palpitations) Musculoskeletal (see HPI) Psych (no depression, anxiety) Avi Dobbins MD documented in this encounter [facility] 12-30-2023 History of Present illness Narrative Radiology Service Progress Note PATIENT NAME: Josh Huffman DATE OF SERVICE: December 30, 2023 TIME: 1:21 PM PATIENT IDENTITY VERIFICATION COMPLETED USING TWO [...] NO. PATIENT RELEVANT IMPLANT DATA REVIEWED: Yes PATIENT PRESENTS WITH AN IMPLANTABLE OR ATTACHED WIRE COATER: No RADIOLOGY DEPARTMENT: MR; Exam(s) Completed: Lower MSK: Knee, right PERIPHERAL IV DATA: Not applicable SIGNED BY: MARILU Almendarez) December 30, 2023 1:21 PM documented in this encounter [facility] 12-30-2023 Note HNO ID: [id number] Author: OCTAVIA REED RT (R) Service: Radiology Author Type: Technologist Type: Progress Notes Filed: 12/30/2023 13:26 Note Text: Radiology Service Progress Note PATIENT NAME: Josh Huffman DATE OF SERVICE: December 30, 2023 TIME: 1:21 PM PATIENT IDENTITY VERIFICATION COMPLETED USING TWO [...] NO. PATIENT RELEVANT IMPLANT DATA REVIEWED: Yes PATIENT PRESENTS WITH AN IMPLANTABLE OR ATTACHED WIRE COATER: No RADIOLOGY DEPARTMENT: MR; Exam(s) Completed: Lower MSK: Knee, right PERIPHERAL IV DATA: Not applicable SIGNED BY: RT Erickson(Gregg) December 30, 2023 1:21 PM [facility] 12-18-2023 History of Present illness Narrative Avi Dobbins MD Department of Orthopaedics Orthopaedics [address] [facility] [address] Dept: [phone] Dept December 18, 2023 CHIEF COMPLAINT: Established Patient and Knee Pain of the Right Knee. HPI Patient presents with: Right Knee - Established Patient, Knee Pain AMB ROOMING INTAKE FLOWSHEET DATA Pain Pain Level: 5 Pain Location: Knee-Right Description: Aching Duration Amount of Time: 14 Duration Units: Months Frequency: Continuous Intervention/Comfort measure: Splinting Pt here for continued right knee pain after 60 day Meloxicam course. Pt refers medication did not help with pain at all. Currently wearing a brace which helps with stability of the knee. ASSESSMENT: S83.241D Tear of medial meniscus of right knee, current, unspecified tear type, subsequent encounter (primary encounter diagnosis) M17.11 Primary osteoarthritis of right knee SUMMARY/PLAN: She has had 2 months of prescription strength NSAIDs as well as using topical Voltaren. Bracing and a physician guided physical therapy program. With her still having quite a bit of trouble and some mechanical symptoms of the knee with only some mild apparent arthritis on her plain films, an MRI is recommended. Will see her back after her imaging study to help determine next step. Exam: Persistent, mild effusion. Mild antalgia to the right. Positive Guillaume's without a palpable click. PositiveThesally's Imaging: IMPRESSION: Mild osteoarthritis right knee. Occupational Therapy Technician: CHELSEA Transcribe Date/Time: Aug 01 2023 3:45P Dictated by : MIRYAM GAYTAN MD This examination was interpreted and the report reviewed and electronically signed by: MIRYAM GAYTAN MD on Aug 01 2023 3:45PM EST Results-Findings * * *Final Report* * * DATE OF EXAM: Aug 01 2023 2:27PM AOX 5203 - XR KNEE 4V AP/PA BOTH+LAT/JEAN-CLAUDE RT / PROCEDURE REASON: Primary osteoarthritis of right knee * * * * Physician Interpretation * * * * X-RAYS RIGHT KNEE HISTORY: RIGHT KNEE PAIN. Primary osteoarthritis of right knee TECHNIQUE: 4 views of the right knee. COMPARISON: None RESULT: Mild tricompartmental osteoarthritis right knee with mild narrowing of patellofemoral compartment and small tricompartmental osteophytes. No fracture or dislocation. Trace right knee joint effusion. Supporting Information Below: Medications: Current Outpatient Medications Medication Sig levothyroxine (SYNTHROID) 100 mcg tablet Take 1 tablet by mouth four times a week. Tu/Thurs/Sat/Sun levothyroxine (SYNTHROID) 112 mcg tablet Take 1 tablet by mouth three times a week. Mon/Wed/Fri cyanocobalamin, vitamin B-12, (VITAMIN B-12 ORAL) Take 500 mcg by mouth once daily. cholecalciferol, vitamin [...] mouth once daily. Includes Dandelion root 50mg lisinopril-hydrochlorothiazide 10-12.5 mg per tablet Take 1 tablet by mouth every morning. metoprolol succinate XL, long acting, (TOPROL XL) 100 mg Tb24 Take 100 mg by mouth daily at bedtime. meloxicam (MOBIC) 15 mg tablet Take 1 tablet by mouth once daily. (Patient not taking: Reported on 12/18/2023) No current facility-administered medications for this visit. Allergies: Patient has no known allergies. Avi Dobbins MD documented in this encounter [facility] 09-11-2023 History of Present illness Narrative Consultation [...] mesh. Patient consented for study? Not applicable Ashley Abarca MD September 11, 2023 2:18 PM documented in this encounter [facility] 09-11-2023 Nurse Note What is the reason for your visit today? Consult ventral hernia Who is your referring physician? Dr. Partida Are you having poor oral intake? NO Have you had unintentional weight loss of 15 lbs/7 Kg in the last 3-6 months? NO Bowels: regular Wound: clean & dry Temperature: No Drains: No documented in this encounter [facility] 09-11-2023 History and physical note [facility] Abdominal [facility] - HISTORY AND PHYSICAL SUBJECTIVE: Chief Complaint: ventral hernia HPI: Josh Huffamn is a 63 year old female with [...] ASD (atrial septal defect) 1988 repaired at [facility] at age 27 Bilateral hip bursitis 11/2021 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 Elevated uric acid in blood 10/31/2019 without gout Heel spur resolved with Tenex Hypercholesterolemia 10/31/2019 Hypertension on medication since 2012 Hypothyroidism 2017 Menopausal state Normal coronary arteries, Coronary Calcium Score = 0 (10/2019) 10/31/2019 (normal spontaneous vaginal delivery) 1987, 1989, 1993 1987: 8'12; 1989 9'3; 1993: 9'1 Prediabetes 10/31/2019 Psoriasis scalp Right plantar fasciitis treated with Tenex TIA (transient ischemic attack) 1988 during first , diagnosed ASD, repaired at [facility] after delivery Vitamin D deficiency 10/31/2019 PAST SURGICAL HISTORY Procedure Laterality Date COLONOSCOPY 07/23/2012 hemorrhoids, diverticulosis, advised 10-year follow-up HEART SURGERY HX 1987 at [facility], atrial septal defect repair LASIK Right 2001 [...] tablet by mouth three times a week. Mon/Mon/Mon cyanocobalamin, vitamin B-12, (VITAMIN B-12 ORAL) Take [...] 09/11/2023 12:58 PM documented in this encounter [facility] 09-08-2023 History of Present illness Narrative Radiology [...] 2023 2:24 PM documented in this encounter [facility] 11-14-2023 Miscellaneous Notes Contacted patient to advise of Recent Imaging Needed prior to Appointment. No answer and VM left to contact this journalists and other writers back, will await callback and [employer] message also sent regarding phone call. Cassandra Ybarra LPN documented in this encounter [facility] 08-01-2023 Nurse Note Immunization Pt identified by name/date of . Previous RN gave COVID 23-24; PCV20; & RSV VIS sheet earlier today and provided patient with [facility] Immunization System Document. Pt afebrile and allergies [...] Hepatitis A-n/a Hepatitis B-n/a Influenza-07/2023 Shingrix-x2 Covid-19 1774-1823- VIS given, vaccine pended RSV- VIS given, vaccine pended See Immunization record in EPIC. Discussed with patient current recommendations from the CDC for routine adult immunizations. Questions answered. Pt. verbalizes understanding of information discussed. Provided patient with [facility] Immunization System Document and VIS sheet. VISUAL ACUITY Patient declines vision exam Date of Last Exam - scheduled in a few weeks [employer] Declined today BP Chon : BP Chon explained to pt. Questions answered. Pt. verbalizes understanding of information discussed. See BP Chon flowsheet for results. documented in this encounter [facility] 08-01-2023 History of Present illness Narrative Radiology [...] RT Iman(R) August 01, 2023 4:17 PM documented in this encounter [facility] 08-01-2023 History of Present illness Narrative Radiology [...] 2023 2:09 PM documented in this encounter [facility] 08-01-2023 History of Present illness Narrative Radiology [...] 2023 12:18 PM documented in this encounter [facility] 08-01-2023 History of Present illness Narrative Ms. Josh Huffman is a 63 year old female from [facility], who presents for a comprehensive health evaluation. Last Executive Physical 10/[address] Bermudez. PRESENT COMPLAINTS: Comprehensive health evaluation. PRESENT MEDICATIONS: Lisinopril-hydrochlorothiazide 10-12.5 mg once daily in the morning. Toprol XL (metoprolol succinate) 100 mg once daily in the evening. Synthroid (levothyroxine) 100 mcg once daily 4x/week (//Sat/Sun). Synthroid (levothyroxine) 112 mcg once daily 3x/week (Mon/Mon/Mon). Aspirin 81 mg once daily. Aleve (naproxen) [...] (during first , diagnosed ASD, repaired at [facility] after delivery). ASD (Atrial Septal Defect) - 1987 (repaired at [facility] at age 27). Hypertension (on medication since [...] Atrial septal defect repair - 1987 (at [facility]) LASIK - 2001 (Right) Colonoscopy - 07/23/2012 [...] age 59. Paternal Grandmother: Diabetes. Son (Esteban [id number]): Diabetes type 1. Son (Antonio [id number]): No known problems Son (Sorin [id number]): Hearing loss (hearing aids since age 4). [...] not in past few months. OCCUPATIONAL HISTORY: [employer] 50 hours per week and travels 5% of the time. Mild stress level at work reported. Anticipates alf within next 2 years. REVIEW OF SYSTEMS: Feels rather well in general. Weight has been down about 10 pounds in the past year. No chest pain, palpitations, shortness of breath, lightheadedness with exertion, claudication, or edema. Checks BP about 1/month, usually 120-130/80-85 in daytime, lower in evening. Not able to take as deep a breath as in past before had COVID in [id number]. Not affecting ability to walk. No persistent [...] F) (Temporal Artery) Ht 175.3 cm (5' 9.02) Wt 98.1 kg (216 lb 4.3 oz) [...] Allan Partida MD documented in this encounter [facility] 08-01-2023 History of Present illness Narrative EXECUTIVE PHYSICAL: HEARING SUMMARY Referred by: Allan Partida M.D. This patient was seen for puretone air conduction thresholds as part of a physical examination in [facility], [place] [address]. A brief case history and puretone air [...] [facility] thresholds. NOTE: Testing involved assessment of air conduction thresholds only. The results should not be considered a comprehensive diagnostic audiologic evaluation. RIGHT EAR: Within normal limits 250-4000 Hz; mild hearing loss responses 9876-5307 Hz. LEFT EAR: Within normal limits 250-6000 Hz; mild hearing loss response at 8000 Hz. RIGHT EAR LEFT EAR OCCUPATIONAL THERAPIST ASSISTANT 1* Average of 500, 1000, & 2000 Hz 13 dB 12 dB OCCUPATIONAL THERAPIST ASSISTANT 2* Average of 3000, 4000, & 6000 Hz 20 dB 18 dB COMPARISON: Asymmetry: No significant asymmetry was present between the right and left ears. NOTE: Asymmetry is defined as a difference between ears of > 15 dB for OCCUPATIONAL THERAPIST ASSISTANT 1 and/or > 30 dB for OCCUPATIONAL THERAPIST ASSISTANT 2 (AAO-HNS, 1997) Change: No significant change in air conduction thresholds from the previous test obtained on 10/31/2019 was noted. NOTE: A significant change is defined as a difference of > 15 dB for OCCUPATIONAL THERAPIST ASSISTANT 1 and/or > 20 dB for OCCUPATIONAL THERAPIST ASSISTANT 2 (AAO-HNS, 1997) RECOMMENDATIONS: *Results suggest normal hearing sensitivity of both ears at the majority of test frequencies. Retest as medically indicated. *Use hearing protective devices when exposed to loud noise to promote hearing loss prevention. ALLEN Andrews Licensed Audiology Aide [facility] # [id number] I verify that I have reviewed the history and test results, and I completed the interpretation and recommendations for this testing. González Mehta, CCC-A Supervising Buggy Driver DEFINITIONS: * Puretone Average (OCCUPATIONAL THERAPIST ASSISTANT) OCCUPATIONAL THERAPIST ASSISTANT 1 average of thresholds at 500, 1000, and 2000 Hz OCCUPATIONAL THERAPIST ASSISTANT 2 average of thresholds at 3000, 4000, and 6000 Hz Severity Descriptors Severity Range of intensity in decibels (dB) Normal 0-25 dB Mild 25-45 dB Moderate 45-60 dB Severe 60-90 dB Profound 90+ dB documented in this encounter [facility] 08-01-2023 History of Present illness Narrative [facility] Nutrition Progress Note Josh Huffman [id number] Assessment Physical Findings: Current Weight and Height: 98.1 kg (216 lb 3.2 oz) 175.3 cm (5' 9) Body mass index is 31.93 kg/m . [place] BMI: 18.5-24.9 Percent body fat: 46.6 %, [place] body fat percentage is 18-28% for female. 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) Additional Activity: Lightly active (Light exercise: planned physical activity 1-3 days/week) Walking 3x/ week for 30-45mins Patient's symptoms are: Weight Concerns: failure to lose weight Pt reported weight goal: 185# Diet history: obtained and reviewed Breakfast: container of marshallese yogurt and a banana Snack: apple with [...] Date ASD (atrial septal defect) repaired at [facility] at age 27 Heel spur HTN (hypertension) Hypothyroid levothyroxine 75 mcg Menopausal state (normal spontaneous vaginal delivery) 1987, 1989, 1993 1987: 8'12; 1989 9'3; 1993: 9'1 Pap smear for cervical cancer screening 2016 Plantar fasciitis Psoriasis TIA (transient ischemic attack) 1987 during first , diagnosed ASD, repaired at [facility] after delivery Labs: available nutrition-related labs reviewed [...] 15 minutes, 4 increments Signed by: Trang Sosa RD documented in this encounter [facility] 07-26-2023 Miscellaneous Notes CTA chest ordered. Previsit call completed. confirmed. Reviewed department guidelines/changes with pt in regard to covid 19-pt verbalized understanding. Additional consults: none Q: sent in yesterday per pt, not in Epic during call Per 2019 letter, Regarding the ascending aorta, we will plan to schedule a follow-up CTA scan of the thoracic aorta in one year when you return to [facility] to confirm stability. Dr. Partida, pt has not completed. Do you want to order? documented in this encounter [facility] 02-02-2021 Note HNO ID: [id number] Author: Dean Tejeda MD Service: ? Author Type: Physician Type: [...] exercise in pool. [place] [facility] PAIN EVALUATION No data found in the last 1 encounters. History/Data Reviewed: PAST MEDICAL HISTORY Diagnosis Date - ASD (atrial septal defect) repaired at [facility] at age 27 - Heel spur - HTN (hypertension) - Hypothyroid levothyroxine 75 mcg - Menopausal state - (normal spontaneous vaginal delivery) 1987, 1989, 1993 1987: 8'12; 1989 9'3; 1993: 9'1 - Pap smear for cervical cancer screening 2016 - Plantar fasciitis - Psoriasis - TIA (transient ischemic attack) 1987 during first , diagnosed ASD, repaired at [facility] after delivery PAST SURGICAL HISTORY Procedure Laterality Date - EXTENSIVE FOOT SURGERY - HEART SURGERY HX 1987 at [facility], atrial septal defect repair - LASIK Right [...] mi/day ? Discussed training for vacation to [place] in March ? FU with us in future as needed-will communicate with Dr. Kumar if she wishes scheduled fu for OA in foot? Return if symptoms worsen or fail to improve. Part of this note has been created using voice recognition software. It may contain errors which are inherent in voice-recognition technology. Dean Tejeda MD [facility] 01-06-2021 Note HNO ID: [id number] Author: Dean Tejeda MD Service: ? Author Type: Physician Type: [...] - ASD (atrial septal defect) repaired at [facility] at age 27 - Heel spur - HTN (hypertension) - Hypothyroid levothyroxine 75 mcg - Menopausal state - (normal spontaneous vaginal delivery) 1987, 1989, 1993 1987: 8'12; 1989 9'3; 1993: 9'1 - Pap smear for cervical cancer screening 2016 - Plantar fasciitis - Psoriasis - TIA (transient ischemic attack) 1987 during first , diagnosed ASD, repaired at [facility] after delivery PAST SURGICAL HISTORY Procedure Laterality Date - EXTENSIVE FOOT SURGERY - HEART SURGERY HX 1987 at [facility], atrial septal defect repair - LASIK Right [...] which are inherent in voice-recognition technology. Dean Tejeda MD [facility] 12-02-2020 Note HNO ID: [id number] Author: Dean Tjeeda MD Service: ? Author Type: Physician Type: Progress Notes Filed: 12/03/2020 9:57 AM Note Text: HPI: Josh Huffman is a 60 year old female whose complaint is documented in pain description below. Patient is here for right plantar fasciitis. Sent by Dr. Kumar after MRI. 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 Hx of plantar fasciitis, exercises, night splint, orthotics, electromagnetic pulse tx; offered stem cell but turned it down. Notes that her primary problem has been plantar heel pain for several years. Is frustrated by the lack of improvement, and even worsening with treatment by regional controller at outside location. Has been seen by Dr. Kumar and sent here for consideration for percutaneous fasciotomy. PAIN EVALUATION 12/02/2020 0821 Pain Level: 8 Pain Location: Heel-Right Description: Aching Duration Amount of Time: 2.5 Duration Units: Years Frequency: Continuous Intervention: Exercise;Medication PAST MEDICAL HISTORY Diagnosis Date - ASD (atrial septal defect) repaired at [facility] at age 27 - Heel spur - HTN (hypertension) - Hypothyroid levothyroxine 75 mcg - Menopausal state - (normal spontaneous vaginal delivery) 1987, 1989, 1993 1987: 8'12; 1989 9'3; 1993: 9'1 - Pap smear for cervical cancer screening 2016 - Plantar fasciitis - Psoriasis - TIA (transient ischemic attack) 1987 during first , diagnosed ASD, repaired at [facility] after delivery PAST SURGICAL HISTORY Procedure Laterality Date - EXTENSIVE FOOT SURGERY - HEART SURGERY HX 1987 at [facility], atrial septal defect repair - LASIK Right [...] up [facility] Return for By phone with executive secretary for scheduling for percutaneous fasciotomy. Part of this note has been created using voice recognition software. It may contain errors which are inherent in voice-recognition technology. Dean Tejeda MD [facility] 11-26-2020 Note HNO ID: [id number] Author: Gary Kumar Service: ? Author Type: Physician Type: Progress [...] treatment as included: multiple conservative treatments including [id number] and custom foot orthotics, supportive shoe gear, stretching exercises, boot immobilization, night splint, physical therapy as well as electromagnetic pulse treatments with little improvements of her symptoms. PMH PAST MEDICAL HISTORY Diagnosis Date - ASD (atrial septal defect) repaired at [facility] at age 27 - Heel spur - HTN (hypertension) - Hypothyroid levothyroxine 75 mcg - Menopausal state - (normal spontaneous vaginal delivery) 1987, 1989, 1993 1987: 8'12; 1989 9'3; 1993: 9'1 - Pap smear for cervical cancer screening 2015 - Plantar fasciitis - Psoriasis - TIA (transient ischemic attack) 1987 during first , diagnosed ASD, repaired at [facility] after delivery MEDS Current Outpatient Medications Medication [...] mood. Resp 16 Ht 175.3 cm (5' 9) Wt 104.8 kg (231 lb) BMI 34.11 [...] the sinus tarsi (more content not included)... [facility] 11-26-2020 Note HNO ID: [id number] Author: Jaylon Martin (Tech) Service: ? Author Type: Mechanical Adjuster Type: Progress Notes Filed: 11/26/2020 3:14 PM [...] Negative for excessive bleeding, clots, bleeding disorders. [facility] 11-05-2020 Note HNO ID: [id number] Author: Gary Kumra Service: ? Author Type: Physician Type: Progress [...] states she was initially followed by Dr. Chong, JACQUIE. States to have tried multiple conservative treatments including buxc-mrm-[id number] and custom foot orthotics, supportive shoe gear, [...] that currently, she has been using the utgj-mtd-[id number] inserts and stretching exercises. Notes that the [...] - ASD (atrial septal defect) repaired at [facility] at age 27 - Heel spur - HTN (hypertension) - Hypothyroid levothyroxine 75 mcg - Menopausal state - (normal spontaneous vaginal delivery) 1987, 1989, 1993 1987: 8'12; 1989 9'3; 1993: 9'1 - Pap smear for cervical cancer screening 2015 - Plantar fasciitis - Psoriasis - TIA (transient ischemic attack) 1987 during first , diagnosed ASD, repaired at [facility] after delivery MEDS Current Outpatient Medications Medication [...] HX 1987 at (more content not included)... [facility] 11-05-2020 Note HNO ID: [id number] Author: Jaylon Martin (Tech) Service: ? Author Type: Mechanical Adjuster Type: Progress Notes Filed: 11/05/2020 10:36 AM [...] Negative for excessive bleeding, clots, bleeding disorders. [facility] Evaluation note No assessment inform ation available [facility] Work Phone: Evaluation note Diagnosis Ascending aorta dilation (HCC) Thoracic aortic ectasia [facility] Abnormal hearing test- Primary Unspecified hearing loss [facility] Diagnosis Routine general medical examination at a health care facility [facility] Diagnosis Ascending aorta dilation (HCC) Thoracic aortic ectasia [facility] Diagnosis Primary osteoarthritis of right knee Primary localized osteoarthrosis, lower leg [facility] Diagnosis Routine general medical examination at [...] specified viral diseases [facility] Diagnosis Ventral hernia without obstruction or gangrene- Primary Ventral hernia, unspecified, without mention of obstruction or gangrene [facility] Diagnosis Ventral hernia without obstruction or gangrene Ventral hernia, unspecified, without mention of obstruction or gangrene [facility] Diagnosis Ventral hernia without obstruction or gangrene Ventral hernia, unspecified, without mention of obstruction or gangrene [facility] Diagnosis Tear of medial meniscus of right knee, current, unspecified tear type, subsequent encounter- Primary Primary osteoarthritis of right knee Primary localized osteoarthrosis, lower leg [facility] Diagnosis Tear of medial meniscus of right knee, current, unspecified tear type, subsequent encounter Primary osteoarthritis of right knee Primary localized osteoarthrosis, lower leg [facility] Diagnosis Complex tear of medial meniscus of right knee as current injury, subsequent encounter- Primary Primary osteoarthritis of right knee Primary localized osteoarthrosis, lower leg Complex tear of medial meniscus of right knee as current injury, subsequent encounter [facility] Diagnosis Pre-op evaluation- Primary Preoperative examination, unspecified Primary hypertension Unspecified essential hypertension Hypothyroidism, unspecified type Ascending aorta dilation (4.3 cm on non-contrast CT 10/2019, and on CT angiogram 07/2023) Thoracic aortic ectasia Obesity, Class I, BMI 30-34.9 Obesity, unspecified ASD (atrial septal defect) Ostium secundum type atrial septal defect TIA (transient ischemic attack) Unspecified transient cerebral ischemia Prediabetes Other abnormal glucose Hypercholesterolemia Pure hypercholesterolemia Complex tear of medial meniscus of right knee as current injury, subsequent encounter [facility] Diagnosis Complex tear of medial meniscus of right knee as current injury, subsequent encounter- Primary Primary osteoarthritis of right knee Primary localized osteoarthrosis, lower leg [facility]* Diagnosis Complex tear of medial meniscus of right knee as current injury, subsequent encounter- Primary [facility]* Diagnosis Pre-op evaluation- Primary Preoperative examination, unspecified Primary hypertension Unspecified essential hypertension Hypothyroidism, unspecified type Ascending aorta dilation (4.3 cm on non-contrast CT 10/2019, and on CT angiogram 07/2023) Thoracic aortic ectasia Obesity, Class I, BMI 30-34.9 Obesity, unspecified ASD (atrial septal defect) Ostium secundum type atrial septal defect TIA (transient ischemic attack) Unspecified transient cerebral ischemia Prediabetes Other abnormal glucose Hypercholesterolemia Pure hypercholesterolemia Acute pain of right knee- Primary documented in this encounter [facility] note* Diagnosis Pre-op evaluation- Primary Preoperative examination, unspecified Primary hypertension Unspecified essential hypertension Hypothyroidism, unspecified type Ascending aorta dilation (4.3 cm on non-contrast CT 10/2019, and on CT angiogram 07/2023) Thoracic aortic ectasia Obesity, Class I, BMI 30-34.9 Obesity, unspecified ASD (atrial septal defect) Ostium secundum type atrial septal defect TIA (transient ischemic attack) Unspecified transient cerebral ischemia Prediabetes Other abnormal glucose Hypercholesterolemia Pure hypercholesterolemia Acute pain of right knee- Primary Primary osteoarthritis of right knee Primary localized osteoarthrosis, lower leg documented in this encounter [facility] note* Diagnosis Pre-op evaluation- Primary Preoperative examination, unspecified Primary hypertension Unspecified essential hypertension Hypothyroidism, unspecified type Ascending aorta dilation (4.3 cm on non-contrast CT 10/2019, and on CT angiogram 07/2023) Thoracic aortic ectasia Obesity, Class I, BMI 30-34.9 Obesity, unspecified ASD (atrial septal defect) Ostium secundum type atrial septal defect TIA (transient ischemic attack) Unspecified transient cerebral ischemia Prediabetes Other abnormal glucose Hypercholesterolemia Pure hypercholesterolemia Need for influenza vaccination- Primary Need for prophylactic vaccination and inoculation against influenza Need for vaccination Need for prophylactic vaccination and inoculation against unspecified single disease Routine general medical examination at a health care facility 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 [facility] Pre-op evaluation- Primary Preoperative examination, unspecified Primary hypertension Unspecified essential hypertension Hypothyroidism, unspecified type Ascending aorta dilation (4.3 cm on non-contrast CT 10/2019, and on CT angiogram 07/2023) Thoracic aortic ectasia Obesity, Class I, BMI 30-34.9 Obesity, unspecified ASD (atrial septal defect) Ostium secundum type atrial septal defect TIA (transient ischemic attack) Unspecified transient cerebral ischemia Prediabetes Other abnormal glucose Hypercholesterolemia Pure hypercholesterolemia Routine general medical examination at a health care facility [facility] Diagnosis Pre-op evaluation- Primary Preoperative examination, unspecified Primary hypertension Unspecified essential hypertension Hypothyroidism, unspecified type Ascending aorta dilation (4.3 cm on non-contrast CT 10/2019, and on CT angiogram 07/2023) Thoracic aortic ectasia Obesity, Class I, BMI 30-34.9 Obesity, unspecified ASD (atrial septal defect) Ostium secundum type atrial septal defect TIA (transient ischemic attack) Unspecified transient cerebral ischemia Prediabetes Other abnormal glucose Hypercholesterolemia Pure hypercholesterolemia Encounter for screening for cardiovascular disorders Screening for other and unspecified cardiovascular conditions [facility] Diagnosis Pre-op evaluation- Primary Preoperative examination, unspecified Primary hypertension Unspecified essential hypertension Hypothyroidism, unspecified type Ascending aorta dilation (4.3 cm on non-contrast CT 10/2019, and on CT angiogram 07/2023) Thoracic aortic ectasia Obesity, Class I, BMI 30-34.9 Obesity, unspecified ASD (atrial septal defect) Ostium secundum type atrial septal defect TIA (transient ischemic attack) Unspecified transient cerebral ischemia Prediabetes Other abnormal glucose Hypercholesterolemia Pure hypercholesterolemia Routine general medical examination at a health care facility [facility] Diagnosis Pre-op evaluation- Primary Preoperative examination, unspecified Primary hypertension Unspecified essential hypertension Hypothyroidism, unspecified type Ascending aorta dilation (4.3 cm on non-contrast CT 10/2019, and on CT angiogram 07/2023) Thoracic aortic ectasia Obesity, Class I, BMI 30-34.9 Obesity, unspecified ASD (atrial septal defect) Ostium secundum type atrial septal defect TIA (transient ischemic attack) Unspecified transient cerebral ischemia Prediabetes Other abnormal glucose Hypercholesterolemia Pure hypercholesterolemia Routine general medical examination at a health care facility- Primary documented in this encounter [facility] for referral (narrative)* Diagnostic Procedure Only (Routine) - Closed Specialty Diagnoses / Procedures Referred By Contac t Referred To Contact XR IMAGING Diagnoses Primary osteoarthritis of right knee Procedures XR KNEE GENERAL 4V AP BOTH/PA BOTH/LAT/MERC RIGHT RADIOLOGIC EXAM KNEE COMPLETE 4/MORE VIEWS Allan Partida MD [address] [place] [address] Xr Imaging [place] [address] Referral ID Status Reason Start Date Expiration Date V isits Requested Visits Authorized [id number] Closed Auto-Generate d Referral 08/01/2023 08/30/2024 1 1 [facility] for visit Narrative* MRI/CT (Routine) - Pending Review Specialty Diagnoses / Procedures Referred By Contac t Referred To Contact CT IMAGING Diagnoses Encounter for screening for cardiovascular disorders Procedures CT CALCIUM SCORING SELF PAY UNLISTED COMPUTED TOMOGRAPHY PROCEDURE David Hull MD [address] [place] [address] Phone: tel: fax: CT IMAGING [place] [address] Referral ID Status Reason Start Date Expiration Date Visits Requested Visits Authorized [id number] Pending Review Auto-Generat ed Referral 11/12/2024 12/12/2025 1 1 [facility] for visit Narrative* Diagnostic Procedure Only (Routine) - Closed Specialty Diagnoses / Procedures Referred By Contac t Referred To Contact XR IMAGING Diagnoses Routine general medical examination at a health care facility Procedures DXA-AXIAL SKELETON DXA BONE DENSITY STUDY 1/> SITES AXIAL SKEL David Hull MD [address] [place] [address] Phone: tel: fax: XR IMAGING [id number] Referral ID Status Reason Start Date Expiration Date V isits Requested Visits Authorized [id number] Closed Auto-Generate d Referral 11/12/2024 12/12/2025 1 1 [facility] Chief Complaint Chief Complaint Description Start Date right foot pain Preliminary chief co mplaint data, not yet signed by the author as of Instructions Instruction Description Start Date CompletedPlease follow-up wi th Primary Care Physician or Officer Lieutenant for treatment or adjustment of medication regarding [...] CT ANGIOGRAPHY CHEST W/CONTRAST/NONCONTRAST Allan Partida MD [address] [place] [address] Ct Imaging [id number] Referral ID Status Reason Start Date Expiration Date Visits Requested Visits Authorized [id number] Pending Review Auto-Generat ed Referral 3 08/24/2024 1 1 Specialty Diagnoses / Procedures Referred By Santana t Referred To Contact General Surgery Diagnoses Ventral hernia without obstruction or gangrene Procedures CONSULT TO GENERAL SURGERY OFFICE/OUTPATIENT NEW HIGH MDM 60-74 MINUTES Allan Partida MD [address] [place] [id number] Referral ID Status Reason Start Date Expiration Date Visits Requested Visits Authorized [id number] Authorized PCP Requested Referral 3 07/31/2024 1 1 Specialty Diagnoses / Procedures Referred By Contac t Referred To Contact Orthopedics Diagnoses Primary osteoarthritis of right knee Bursitis of both hips, unspecified bursa Procedures CONSULT PANEL TO ORTHOPAEDICS OFFICE/OUTPATIENT [facility] 60-74 MINUTES Allan Partida MD [address] [id number] Referral ID Status Reason Start Date Expiration Date Visits Requested Visits Authorized [id number] Authorized PCP Requested Referral 3 07/31/2024 1 1 Specialty Diagnoses / Procedures Referred By Contac t Referred To Contact XR IMAGING Diagnoses Primary osteoarthritis of right knee Procedures XR KNEE GENERAL 4V AP BOTH/PA BOTH/LAT/MERC RIGHT RADIOLOGIC EXAM KNEE COMPLETE 4/MORE VIEWS Allan Partida MD [address] [id number] Xr Imaging [place] [address] Referral ID Status Reason Start Date Expiration Date V isits Requested Visits Authorized [id number] Closed Auto-Generate d Referral 08/01/2023 08/30/2024 1 1 Specialty Diagnoses / Procedures Referred By Contac t Referred To Contact CT IMAGING Diagnoses Ventral hernia without obstruction or gangrene Procedures CT ABD/PEL WO IVCON CT ABD & PELVIS W/O CONTRAST Roxi Baig, OIL DEVELOPER.LEGAL INSTRUMENTS EXAMINER [id number] Imaging [place] [address] Referral ID Status Reason Start Date Expiration Date Visits Requested Visits Authorized [id number] Pending Review Auto-Generat ed Referral 3 09/27/2024 1 1 Referral ID Status Reason Start Date Expiration Date Visits Requested Visits Authorized [id number] Pending Review Auto-Genera lilliam Referral Patient Cleared - Admin/Chair man/Directo r advise to proceed or did not respond 3 09/27/2024 2 2 Specialty Diagnoses / Procedures Referred By Contac t Referred To Contact MR IMAGING Diagnoses Tear of medial meniscus of right knee, current, unspecified tear type, subsequent encounter Primary osteoarthritis of right knee Procedures MRI KNEE WO IVCON RIGHT MRI ANY JT LOWER EXTREM W/O CONTRAST MATRL Avi Dobbins MD [address] [place] [address] [place] [address] Referral ID Status Reason Start Date Expiration Date Visits Requested Visits Authorized [id number] Pending Review Auto-Generat ed Referral 12/18/2023 01/16/2025 1 1 Additional Source Comments Reason for Visit (unrecogniz ed section and content) Reason Comments Radiology Mammogram Specialty Diagnoses / Procedures Referred By Santana t Referred To Contact BR IMAGING Diagnoses Routine general medical examination at a health care facility Procedures KATE SCREENING W RADHA SCREENING DIGITAL BREAST TOMOSYNTHESIS BI SCREENING MAMMOGRAPHY BI 2-VIEW BREAST INC CAD David Hull MD [address] [place] [address] Phone: tel: fax: BR IM[facility] [address] [place] [address] Referral ID Status Reason Start Date Expiration Date V isits Requested Visits Authorized [id number] Closed Auto-Generate d Referral 11/12/2024 12/12/2025 1 1 Reason For Visit Description Start Date New - 1st visit with practice Preliminary reason f or visit data, not yet signed by the author as of right foot pain Reason Comments Nurse Triage Call [facility] Reason Comments Nutrition Assessment Patient Education Reason Comments Physical Reason Comments Radiology CT Specialty Diagnoses / Procedures Referred By Santana t Referred To Contact CT IMAGING Diagnoses Disorder of arteries and arterioles (HCC) Ascending aorta dilation (HCC) Procedures CTA CHEST (GATED) W IVCON CT ANGIOGRAPHY CHEST W/CONTRAST/NONCONTRAST Allan Partida MD [id number] Imaging [id number] Referral ID Status Reason Start Date Expiration Date Visits Requested Visits Authorized [id number] Waiting for Online Response Auto-Genera lilliam Referral [...] KNEE COMPLETE 4/MORE VIEWS Allan Partida MD [address] [place] [address] Xr Imaging [place] [address] Referral ID Status Reason Start Date Expiration Date V isits Requested Visits Authorized [id number] Closed Auto-Generate d Referral 08/01/2023 08/30/2024 1 1 Reason Comments [facility] Physical Reason Comments Appointment Imaging Needed Prior to Appointment Reason Comments Radiology CT Specialty Diagnoses / Procedures Referred By Contac t Referred To Contact CT IMAGING Diagnoses Ventral hernia without obstruction or gangrene Procedures CT ABD/PEL WO IVCON CT ABD & PELVIS W/O CONTRAST Roxi Baig APRN.LEGAL INSTRUMENTS EXAMINER [address] [place] [address] Ct Imaging [place] [address] Referral ID Status Reason Start Date Expiration Date Visits Requested Visits Authorized [id number] Pending Review Auto-Genera lilliam Referral Patient Cleared - Admin/Chair man/Directo r advise to proceed or did not respond 3 09/27/2024 2 2 Reason Comments Consult Specialty Diagnoses / Procedures Referred By Contac t Referred To Contact General Surgery Diagnoses Ventral hernia without obstruction or gangrene Procedures CONSULT TO GENERAL SURGERY OFFICE/OUTPATIENT [facility] 60-74 MINUTES Allan Partida MD [address] [place] [address] Referral ID Status Reason Start Date Expiration Date V isits Requested Visits Authorized [id number] Closed PCP Requested Referral 08/01/2023 07/31/2024 1 1 Reason Comments Established Patient Knee Pain Specialty Diagnoses / Procedures Referred By Contac t Referred To Contact MR IMAGING Diagnoses Tear of medial meniscus of right knee, current, unspecified tear type, subsequent encounter Primary osteoarthritis of right knee Procedures MRI KNEE WO IVCON RIGHT MRI ANY JT LOWER EXTREM W/O CONTRAST MATRL Avi Dobbins MD [address] [place] [address] [place] [address] Referral ID Status Reason Start Date Expiration Date V isits Requested Visits Authorized [id number] Closed Auto-Generate d Referral 12/19/2023 06/16/2024 1 1 Reason Comments Follow Up MRI Follow Up Tests Results MRI Reason Comments Post Op Follow Up Reason Comments Post Op 6 weeks 5 days post op Right knee arthroscopic medial menisectomy lateral and PF chondroplasties Reason Comments Established Patient 16 weeks 5 days post op right knee arthr oscopy Reason Comments Follow Up 3 weeks post visit right knee pain Here for cortisone injection Reason Comments Refill Request Reason Comments Nurse Triage Call [facility] 12/17 Reason Onset Date Comments Physical INTM Immunizations 12/17/2024 Flu vaccination INFORMATION SOURCE (unrecogn ized section and content) DATE CREATED AUTHOR [facility]/20/2021 [facility] DATE CREATED AUTHOR AUTHOR'S ORGANIZ ATION 02/04/2021 [facility] DATE CREATED AUTHOR AUTHOR'S ORGANIZ ATION 02/04/2021 [facility] DATE CREATED AUTHOR AUTHOR'S ORGANIZ ATION 02/08/2024 [facility] DATE CREATED AUTHOR AUTHOR'S ORGANIZ ATION 11/15/2024 [facility] DATE CREATED AUTHOR AUTHOR'S ORGANIZ ATION 12/28/2024 [facility] Goals (unrecognized section and content) Goals may be documented in a n alternate sectionGoals may be documented in an alternate sectionGoals may be documented in an alternate sectionGoals may be documented in an alternate sectionGoals may be documented in an alternate sectionGoals may be documented in an alternate section Care Teams (unrecognized sec tion and content) Team Status: Active Member Role Status Dates Dr. Leon Alvarado MD Family Provider Active Nubia Sage DO Primary Care Provider Active Team Status: Inactive Member Role Status Dates Nubia Sage DO Primary Care Provi chda, Attending Provider, Referring Provider Active Team Status: Inactive Member Role Status Dates Nubia Sage DO Primary Care Provider, Attending Provider Active Bureau Director Relationship Specialty Start Date End Date Leon Alvarado DO PCP - General Family Medicine 12/02/20 Leon Alvarado DO Referring Family Medicine 08/02/19 Bureau Director Relationship Specialty Start Date End Date Nubia Sage DO [address] [facility] [address] [place] [address] PCP - General Family Medicine 08/01/23 Leon Alvarado DO Referring Family Medicine 08/02/19 Bureau Director Relationship Specialty Start Date End Date Nubia Sage DO [address] [facility] [address] [place] [address] PCP - General Family Medicine 08/01/23 Leon Alvarado DO Referring Family Medicine 08/02/19 Bureau Director Relationship Specialty Start Date End Date Nubia Sage DO [address] [facility] [address] [place] [address] PCP - General Family Medicine 08/01/23 Leon Alvarado DO Referring Family Medicine 08/02/19 Bureau Director Relationship Specialty Start Date End Date Nubia Sage DO [address] [facility] [address] [place] [address] PCP - General Family Medicine 08/01/23 Leon Alvarado DO Referring Family Medicine 08/02/19 Bureau Director Relationship Specialty Start Date End Date Nubia Sage DO [address] [facility] [address] [place] [address] PCP - General Family Medicine 08/01/23 Leon Alvarado DO Referring Family Medicine 08/02/19 Bureau Director Relationship Specialty Start Date End Date Nubia Sage DO [address] [facility] [address] [place] [address] PCP - General Family Medicine 08/01/23 Leon Alvarado DO Referring Family Medicine 08/02/19 Bureau Director Relationship Specialty Start Date End Date Nubia Sage DO [address] [place] [address] PCP - General Family Medicine 08/01/23 Leon Alvarado DO Referring Family Medicine 08/02/19 Bureau Director Relationship Specialty Start Date End Date Nubia Sage DO [address] [facility] [address] [place] [address] PCP - General Family Medicine 08/01/23 Leon Alvarado DO Referring Family Medicine 08/02/19 Bureau Director Relationship Specialty Start Date End Date Nubia Sage DO [address] [facility] [address] [place] [address] PCP - General Family Medicine 08/01/23 Leon Alvarado DO Referring Family Medicine 08/02/19 Bureau Director Relationship Specialty Start Date End Date Nubia Sage DO [address] [facility] [address] [place] [address] PCP - General Family Medicine 08/01/23 Leon Alvarado DO Referring Family Medicine 08/02/19 Bureau Director Relationship Specialty Start Date End Date Nubia Sage DO [address] [facility] [address] [place] [address] PCP - General Family Medicine 08/01/23 Leon Alvarado DO Referring Family Medicine 08/02/19 Bureau Director Relationship Specialty Start Date End Date Nubia Sage DO [address] [facility] [address] [place] [address] PCP - General Family Medicine 08/01/23 Leon Alvarado DO Referring Family Medicine 08/02/19 Bureau Director Relationship Specialty Start Date End Date Nubia Sage DO [address] [facility] [address] [place] [address] PCP - General Family Medicine 08/01/23 Leon Alvarado DO Referring Family Medicine 08/02/19 Bureau Director Relationship Specialty Start Date End Date Nubia Sage DO [address] [facility] [address] [place] [address] PCP - General Family Medicine 08/01/23 Leon Alvarado DO Referring Family Medicine 08/02/19 Bureau Director Relationship Specialty Start Date End Date Nubia Sage DO [address] [facility] [address] [place] [address] PCP - General Family Medicine 08/01/23 Leon Alvarado DO Referring Family Medicine 08/02/19 Bureau Director Relationship Specialty Start Date End Date Nubia Sage DO [address] [place] [address] PCP - General Family Medicine 08/01/23 Leon Alvarado DO Referring Family Medicine 08/02/19 Bureau Director Relationship Specialty Start Date End Date Nubia Sage DO [address] [facility] [address] [place] [address] PCP - General Family Medicine 08/01/23 Leon Alvarado DO Referring Family Medicine 08/02/19 Bureau Director Relationship Specialty Start Date End Date Nubia Sage DO [address] [facility] [facility] [address] [place] [address] PCP - General Family Medicine 08/01/23 Leon Alvarado DO Referring Family Medicine 08/02/19 Bureau Director Relationship Specialty Start Date End Date Nubia Sage DO PCP - General Family Medicine 08/01/23 Leon Alvarado DO Referring Family Medicine 08/02/19 Bureau Director Relationship Specialty Start Date End Date Nubia Sage DO PCP - General Family Medicine 08/01/23 Loen Alvarado DO Referring Family Medicine 08/02/19 Bureau Director Relationship Specialty Start Date End Date Nubia Sage DO PCP - General Family Medicine 08/01/23 Leon Alvarado DO Referring Family Medicine 08/02/19 Bureau Director Relationship Specialty Start Date End Date Nubia Sage DO PCP - General Family Medicine 08/01/23 Leon Alvarado DO Referring Family Medicine 08/02/19 Bureau Director Relationship Specialty Start Date End Date Nubia Sage DO PCP - General Family Medicine 08/01/23 Leon Alvarado DO Referring Family Medicine 08/02/19 Bureau Director Relationship Specialty Start Date End Date Nubia Sage DO PCP - General Family Medicine 08/01/23 Leon Alvarado DO Referring Family Medicine 08/02/19 Bureau Director Relationship Specialty Start Date End Date Nubia Sage DO PCP - General Family Medicine 08/01/23 Leon Alvarado DO Referring Family Medicine 08/02/19 Source Comments (unrecognize d section and content) In the event this informatio n is protected by the Federal Confidentiality of Alcohol and Drug Abuse Patient Records regulations: The Federal rules restrict any use of the information to criminally investigate or prosecute any alcohol or drug abuse patient.[facility] CampusIn the event this information is protected by the Federal Confidentiality of Alcohol and Drug Abuse Patient Records regulations: The Federal rules restrict any use of the information to criminally investigate or prosecute any alcohol or drug abuse patient.[facility] CampusIn the event this information is protected by the Federal Confidentiality of Alcohol and Drug Abuse Patient Records regulations: The Federal rules restrict any use of the information to criminally investigate or prosecute any alcohol or drug abuse patient.[facility] CampusIn the event this information is protected by the Federal Confidentiality of Alcohol and Drug Abuse Patient Records regulations: The Federal rules restrict any use of the information to criminally investigate or prosecute any alcohol or drug abuse patient.[facility] CampusIn the event this information is protected by the Federal Confidentiality of Alcohol and Drug Abuse Patient Records regulations: The Federal rules restrict any use of the information to criminally investigate or prosecute any alcohol or drug abuse patient.[facility] CampusIn the event this information is protected by the Federal Confidentiality of Alcohol and Drug Abuse Patient Records regulations: The Federal rules restrict any use of the information to criminally investigate or prosecute any alcohol or drug abuse patient.[facility] CampusIn the event this information is protected by the Federal Confidentiality of Alcohol and Drug Abuse Patient Records regulations: The Federal rules restrict any use of the information to criminally investigate or prosecute any alcohol or drug abuse patient.[facility] CampusIn the event this information is protected by the Federal Confidentiality of Alcohol and Drug Abuse Patient Records regulations: The Federal rules restrict any use of the information to criminally investigate or prosecute any alcohol or drug abuse patient.[facility] CampusIn the event this information is protected by the Federal Confidentiality of Alcohol and Drug Abuse Patient Records regulations: The Federal rules restrict any use of the information to criminally investigate or prosecute any alcohol or drug abuse patient.[facility] CampusIn the event this information is protected by the Federal Confidentiality of Alcohol and Drug Abuse Patient Records regulations: The Federal rules restrict any use of the information to criminally investigate or prosecute any alcohol or drug abuse patient.[facility] CampusIn the event this information is protected by the Federal Confidentiality of Alcohol and Drug Abuse Patient Records regulations: The Federal rules restrict any use of the information to criminally investigate or prosecute any alcohol or drug abuse patient.[facility] CampusIn the event this information is protected by the Federal Confidentiality of Alcohol and Drug Abuse Patient Records regulations: The Federal rules restrict any use of the information to criminally investigate or prosecute any alcohol or drug abuse patient.[facility] CampusIn the event this information is protected by the Federal Confidentiality of Alcohol and Drug Abuse Patient Records regulations: The Federal rules restrict any use of the information to criminally investigate or prosecute any alcohol or drug abuse patient.[facility] CampusIn the event this information is protected by the Federal Confidentiality of Alcohol and Drug Abuse Patient Records regulations: The Federal rules restrict any use of the information to criminally investigate or prosecute any alcohol or drug abuse patient.[facility] CampusIn the event this information is protected by the Federal Confidentiality of Alcohol and Drug Abuse Patient Records regulations: The Federal rules restrict any use of the information to criminally investigate or prosecute any alcohol or drug abuse patient.[facility] CampusIn the event this information is protected by the Federal Confidentiality of Alcohol and Drug Abuse Patient Records regulations: The Federal rules restrict any use of the information to criminally investigate or prosecute any alcohol or drug abuse patient.[facility] CampusIn the event this information is protected by the Federal Confidentiality of Alcohol and Drug Abuse Patient Records regulations: The Federal rules restrict any use of the information to criminally investigate or prosecute any alcohol or drug abuse patient.[facility] CampusIn the event this information is protected by the Federal Confidentiality of Alcohol and Drug Abuse Patient Records regulations: The Federal rules restrict any use of the information to criminally investigate or prosecute any alcohol or drug abuse patient.[facility] CampusIn the event this information is protected by the Federal Confidentiality of Alcohol and Drug Abuse Patient Records regulations: The Federal rules restrict any use of the information to criminally investigate or prosecute any alcohol or drug abuse patient.[facility] CampusIn the event this information is protected by the Federal Confidentiality of Alcohol and Drug Abuse Patient Records regulations: The Federal rules restrict any use of the information to criminally investigate or prosecute any alcohol or drug abuse patient.[facility] CampusIn the event this information is protected by the Federal Confidentiality of Alcohol and Drug Abuse Patient Records regulations: The Federal rules restrict any use of the information to criminally investigate or prosecute any alcohol or drug abuse patient.[facility] CampusIn the event this information is protected by the Federal Confidentiality of Alcohol and Drug Abuse Patient Records regulations: The Federal rules restrict any use of the information to criminally investigate or prosecute any alcohol or drug abuse patient.[facility] CampusIn the event this information is protected by the Federal Confidentiality of Alcohol and Drug Abuse Patient Records regulations: The Federal rules restrict any use of the information to criminally investigate or prosecute any alcohol or drug abuse patient.[facility] CampusIn the event this information is protected by the Federal Confidentiality of Alcohol and Drug Abuse Patient Records regulations: The Federal rules restrict any use of the information to criminally investigate or prosecute any alcohol or drug abuse patient.[facility] CampusIn the event this information is protected by the Federal Confidentiality of Alcohol and Drug Abuse Patient Records regulations: The Federal rules restrict any use of the information to criminally investigate or prosecute any alcohol or drug abuse patient.[facility] CampusIn the event this information is protected by the Federal Confidentiality of Alcohol and Drug Abuse Patient Records regulations: The Federal rules restrict any use of the information to criminally investigate or prosecute any alcohol or drug abuse patient.[facility] CampusIn the event this information is protected by the Federal Confidentiality of Alcohol and Drug Abuse Patient Records regulations: The Federal rules restrict any use of the information to criminally investigate or prosecute any alcohol or drug abuse patient.[facility] CampusIn the event this information is protected by the Federal Confidentiality of Alcohol and Drug Abuse Patient Records regulations: The Federal rules restrict any use of the information to criminally investigate or prosecute any alcohol or drug abuse patient.[facility] CampusIn the event this information is protected by the Federal Confidentiality of Alcohol and Drug Abuse Patient Records regulations: The Federal rules restrict any use of the information to criminally investigate or prosecute any alcohol or drug abuse patient.[facility] FOR RECORDS PERTAINING TO PATIENTS WHO ARE [...] BE BASED ON THE PRIMARY CLINICAL RECORDS. [employer] [facility]. provides no warranty or guarantee of the accuracy or completeness of information in this document.
== END | disposition home or self-care (01) ==
LOC: MTLAB 11:21
PROVIDERS: PCP Internal Medicine; Referring Provider Internal Medicine; Visit Provider Internal Medicine
DX: I10 Essential (primary) hypertension (principal); E03.9 Hypothyroidism, unspecified
CPT/HCPCS: 36415; 80048; 84443

== ENCOUNTER → 2025-03-24 | Outpatient (CLI) | payer MEDICARE, SELFPAY ==
--- NOTE | 2025-03-24 10:27 | RAD_ITS ---
PROCEDURE: CERV SPINE 2 OR 3 VIEWS 03/24/2025 REASON FOR EXAM: CHRONIC NECK PAIN TECHNIQUE: 3 views of the cervical spine. COMPARISON: None FINDINGS: There are no compression fractures. There is loss of the normal cervical lordosis. There is degenerative disc disease C4-5 through C6-7 with narrowing of the intervertebral disc spaces and marginal osteophytes. There is multilevel facet arthropathy. There is degenerative grade 1 anterolisthesis of C4 on C5. RAD/Cerv Spine 2 or 3 Views IMPRESSION: 1. Degenerative disc disease with cervical spasm. 2. Multilevel facet arthropathy with degenerative anterolisthesis of C4 on C5. Reading Location: [place] [address]
--- OUTSIDE RECORDS SUMMARY | 2025-03-24 22:19 | XMS RPT_ITS | CCD ---
Author Organization [facility]iniSym[facility] Care Team Providers Care Polisher And Buffer Name Role Phone Spencer Rodriguez MD Unavailable [phone] JOSE MIGUEL HATHAWAY Attending Unavailable RIVASJOSE MIGUEL ROACH Primary Care Unavailable RIVASJOSE MIGUEL ROACH Admitting Unavailable RIVASJOSE MIGUEL Attending Unavailable RIVASJOSE MIGUEL ROACH Primary Care Unavailable RIVAS, JOSE MIGUEL Tan Admitting Unavailable Christiano Leon MCDOWELL Unavailable ChristianoLeon denise DO Primary Care Provider Nubia Sage DO Primary Care Provider Nubia Sage DO Primary Care Provider AVI DOBBINS Admitting Unavailable AVI DOBBINS Attending Unavailable NUBIA SAGE Primary Care Unavailable Nubia Sage DO Primary Care Provider Nubia Sage DO Primary Care Provider Nubia Sage DO Primary Care Provider COURTNEY COCHRAN Attending Unavailable AVI DOBBINS Referring Unavailable NUBIA SAGE Primary Care UnavailAVI Barnhart Referring Unavailable AVI DOBBINS Attending Unavailable NUBIA SAGE Primary Care UnavailAVI Barnhart Referring Unavailable NUBIA SAGE Primary Care UnavailAVI Barnhart Attending Unavailable DAVID HULL Referring Unavailable ALONANUBIA MC Primary Care Unavailabl e ALONANUBIA ROACH Primary Care Unavailabl e DAVID HULL Referring Unavailable NUBAI SAGE Primary Care Unavailrhonda e DAVID HULL Referring Unavailable ALONANUBIA ROACH Primary Care Unavailrhonda e DAVID HULL Referring Unavailable ALONA, NUBIA CHRISTOPHER Primary Care Unavailabl AVI Perkins Referring Unavailable ALONA, NUBIA CHRISTOPHER Primary Care Unavailabl AVI Perkins Attending Unavailable DAVID HULL Attending Unavailable ALONA, NUBIA CHRISTOPHER Primary Care Unavailabl e DAVID HULL J Referring Unavailable ALONA, NUBIA CHRISTOPHER Primary Care Unavailabl e ALONA, NUBIA CHRISTOPHER Primary Care Unavailabl e DELLA, DAVID J Referring Unavailable ALONA, NUBIA CHRISTOPHER Primary Care Unavailabl e [facility], [facility] Care Unavailabl e DELLA, DAVID J Referring Unavailable ALONA, NUBIA CHRISTOPHER Primary Care Unavailabl e DELLA, DAVID J Referring Unavailable ALONA, NUBIA CHRISTOPHER Primary Care Unavailabl e DELLA, DAVID Gunn Referring Unavailable AVI DOBBINS Attending Unavailable ALONA, NUBIA CHRISTOPHER Primary Care Unavailabl e ALONA, NUBIA CHRISTOPHER Primary Care Unavailabl AVI Perkins Referring Unavailable ALONA, NUBIA [facility] Primary Care Unavailabl e MAHSA MATIAS Referring Unavailable ALONA, NUBIA CHRISTOPHER Primary Care Unavailabl e DAVID HULL Referring Unavailable Serge WILLIAMSON, Dr. Briggs Primary Care Provider Serge WILLIAMSON, Dr. Briggs Attending Provider [phone] Dr. Chester Valentine MD Referring Provider [phone] Oleghe, Efewongbe Primary Care Unavailable Oleghe, Efewongbe Referring Unavailable Oleghe, Efewongbe Attending Unavailable Oleghe, Efewongbe Primary Care Unavailable Oleghe, Efewongbe Referring Unavailable Oleghe, Efewongbe Attending Unavailable Oleghe, Efewongbe Primary Care Unavailable Oleghe, Efewongbe Referring Unavailable Oleghe, Efewongbe Attending Unavailable Oleghe, Efewongbe Primary Care Unavailable Oleghe, Efewongbe Referring Unavailable Oleghe, Efewongbe Attending Unavailable Oleghe, Efewongbe Primary Care Unavailable Oleghe, Efewongbe Referring Unavailable Oleghe, Efewongbe Attending Unavailable Oleghe, Efewongbe Primary Care Unavailable Oleghe, Efewongbe Referring Unavailable Chester Valentine Attending Unavailable Medications Current Medications Medication Drug Class(es) Dates Sig (Normalized) Sig (Original) aspirin 81 mg delayed release oral tablet (20 sources) Platelet Aggregation Inhibitor, Nonsteroidal Anti-inflammatory Drug Start: 03-10-2020 take 1 tablet by mouth once daily Aspirin 81 mg tablet,delayed release (DR/EC) Active 81 mg PO DAILY March 15, 2024 12:00am Start: 05-02-2019 ASPIRIN 81 MG TBEC 1 tablet daily ASPIRIN [id number] Delia Puente LPN Comment on above: Take 1 tablet by karl once daily. cholecalciferol, vitamin D3, (VITAMIN D3 ORAL) (20 [...] on above: Take 1,000 mcg by mo [facility] once daily. Take 500 mcg by mout h once daily. cyclobenzaprine hydrochloride 10 mg oral tablet (1 source) Muscle Relaxant Start: 025 take 1 tablet by mouth twice daily as needed for muscle spasms Cyclobenzaprine 10 mg tablet Active 10 mg PO TWICE A DAY as needed for muscle spasm 60 March 24, 2025 12:00am diclofenac sodium 0.01 mg/mg topical gel (20 sources) Nonsteroidal Anti-inflammatory Drug Start: 024 Diclofenac Sodium (Voltaren Arthritis Pain) 1 % gel Active 2 g TOPICAL ONCE March 15, 2024 12:00am Start: 12-08-2021 apply 2 g topically four times daily diclofenac (VOLTAREN) 1 % topical gel Indications: Bilateral thumb pain Apply 2 g to affected area four times daily. 100 g 1 12/08/2021 Active Comment on above: Apply 2 g to affected area four times da deena. iv contrast (will be provided with radiology test) (1 source) Start: End: inject 1 dose intravenously once iv contrast [...] Comment on above: CTA Chest. No IV access, insert saline l ock prior to the sedation, infusion, injection for imaging exam. Discontinue saline lock post exam. If Pt. has a central line or IVAD, may access for administration according to line specific nursing protocol. Once exam is complete flush line and de-access according to line specific nursing protocol in the CT contrast administration guidelines link. Milk thistle extract (20 sources) Start: 024 take 50 mg by mouth once daily milk thistle Active 1000 mg PO March 15, 2024 12:00am takes daily includes Dandelion Root 50 mg Start: 05-02-2019 MILK THISTLE 1 000 MG CAPS 1 capsule daily MILK THISTLE [id number] Delia Puente LPN take 50 mg by mouth once daily M ILK THISTLE ORAL Take 1,000 mg by mouth once daily. Includes Dandelion root 50mg Active take 50 mg by mouth once daily M ILK THISTLE ORAL Take 1,000 mg by mouth once daily. Includes Dandelion root 50mg 0 Active take 1000 mg by mout h once daily MILK THISTLE ORAL Take 1,000 mg by mouth once daily. 0 Active Comment on above: Take 1,000 mg by karl th once daily. Take 1,000 mg by karl th once daily. Includes Dandelion root 50mg psyllium 3400 mg powder for oral suspension (2 sources) Start: 03-15-2024 Psyllium Husk (Metamucil [facility] Fiber) 3.4 gram/5.8 gram powder Active NMA PO DAILY March 15, 2024 12:00am psyllium husk (METAMUCIL ORAL) (20 sources) take 5.8 g by mouth once daily psyllium husk (METAMUCIL ORAL) Take 5.8 g by mouth once daily. Active take 5.8 g by mouth once daily p syllium husk (METAMUCIL ORAL) Take 5.8 g by mouth once daily. 0 Active Comment on above: Take 5.8 g by mouth once daily. rosuvastatin calcium 10 mg oral tablet (4 sources) HMG-CoA Reductase Inhibitor Start: take 1 tablet by mouth once daily Rosuvastatin 10 mg tablet Active 10 mg PO daily 90 March 21, 2025 12:00am Start: 12-17-2024 take 1 tablet by karl once daily rosuvastatin (CRESTOR) 10 mg tablet Take 1 tablet by mouth once daily. 90 tablet 1 12/17/2024 Active Vit D 2000 (2 sources) Start: 03-15-2024 Vit D 2000 Act angelica PO March 15, 2024 12:00am daily vitamin B12 (2 sources) Vitamin B12 Start: 03-15-2024 Cyanocobalamin (Vitamin B-12) 500 mcg tablet Active 250 ug PO DAILY March 15, 2024 12:00am Completed/Discontinued Medications Medication Drug Class(es) Dates Sig (Normalized) Sig (Original) celecoxib 200 mg oral capsule (18 sources) Nonsteroidal Anti-inflammatory Drug Start: 12-17-2024 take 1 capsule by mouth once daily celecoxib (CELEBREX) 200 mg capsule Take 1 capsule by mouth once daily. 12/17/2024 Active Start: 06-03-2024 End: 02-11-2025 take 1 capsule by mouth twice daily Celecoxib 200 mg capsule Discontinued 200 mg PO TWICE A DAY 60 January 13, 2025 4:00pm February 11, 2025 1:42pm hydroCHLOROthiazide 12.5 mg / lisinopril 10 mg oral tablet (20 sources) Thiazide Diuretic, Angiotensin Converting Enzyme Inhibitor Start: 05-02-2019 End: 09-18-2024 take 10-12.5 mg by mouth once daily Lisinopril-Hydrochlorothiazide (Zestoretic) 10-12.5 mg tablet Discontinued 1 {tbl} PO DAILY July 23, 2024 4:45pm September 18, 2024 12:14pm Comment on above: Take 1 tablet by [...] mout h daily at bedtime. iodine supplement kelp oral (2 sources) Start: 03-15-20 End: 03-21-20 take 325 ug by mouth once daily at bedtime kelp oral Discontinued 325 ug PO March 15, 2024 12:00am March 21, 2025 9:09am po daily at bedtime, iodine supplement KELP TABS (1 source) Start: 05-02-20 KELP TABS 1 tablet daily (33 mg) KELP TABS [id number] Delia uPente LPN levothyroxine sodium 0.112 mg oral tablet (20 sources) l-Thyroxine Start: 07-09-20 End: 06-12-20 24 take 1 tablet by mouth five times weekly Levothyroxine 112 mcg tablet Discontinued 112 ug PO .five times weekly 60 May 10, 2024 2:48pm June 12, 2024 12:45pm takes 112 mcg five times weekly monday - Monday Start: 07-09-2023 take 1 tablet by karl th three times weekly levothyroxine (SYNTHROID) 112 mcg tablet Take 1 tablet by mouth three times a week. Monday-Monday 0 07/09/2023 Active Start: 06-15-2023 End: 06-12-2024 take 1 tablet by mouth two times weekly Levothyroxine 100 mcg tablet Discontinued 100 ug PO .twice week March 15, 2024 12:00am June 12, 2024 12:45pm 100 mcg orally; twice weekly Monday and Monday Start: 06-15-2023 take 1 tablet by karl four times weekly levothyroxine (SYNTHROID) 100 mcg tablet Take 1 tablet by mouth four times a week. Sat & Monday 0 06/15/2023 Active Start: 09-14-2019 End: 08-01-2023 take 1 tablet by mouth once daily levothyroxine (SYNTHROID) 75 mcg tablet Take 75 mcg by mouth once daily. 4 09/14/2019 08/01/2023 Discontinued Start: 05-02-2019 LEVOTHYROXINE SODIUM 75 MCG TABS 1 tablet daily LEVOTHYROXINE SODIUM [id number] Delia Puente LPN Comment on above: Take 75 mcg by mouth once daily. [facility] //Mon/Mon [facility]. Mon/Mon/Mon Take 1 tablet by [facility] four times a week. Mon & Monday Take 1 tablet by [facility] three times a week. Monday-Monday Take 1 tablet by [facility] two times a week. Mon & Monday Take 1 tablet by [facility] five times a week. Monday-Monday 10 ml lidocaine hydrochloride 10 mg/ml injection [...] Take 1 tablet by karl once daily. methylPREDNISolone 4 mg oral tablet (2 sources) Corticosteroid Start: 10-21-2024 End: 03-21-2025 take 1 tablet by mouth once Methylprednisolone (Medrol (Mushtaq)) 4 mg tablets,dose pack Discontinued 0 PO per package directions October 21, 2024 1:00am March 21, 2025 9:09am PO PER PKG DIR for 6 days 24 hr metoprolol succinate 100 mg extended release oral tablet (20 sources) beta-Adrenergic Jose Start: 05-02-2019 End: 02-20-2025 take 1 tablet by mouth once daily Metoprolol Succinate (Toprol Xl) 100 mg tablet extended release 24 hr Discontinued 100 mg PO DAILY August 05, 2024 4:13pm February 20, 2025 1:17pm Comment on above: Take by mouth. Take 100 mg by mouth daily at bedtime. naproxen sodium 220 mg oral tablet (12 sources) Nonsteroidal Anti-inflammatory Drug Start: 05-02-2019 ALEVE 220 MG TABS 1 tablet twice daily NAPROXEN SODIUM [id number] Delia Puente [facility] End: 09-18-2023 take 2 capsules by mouth [...] mouth twice daily. Take 2 capsules by [facility] once daily. 1 capsule in PM tiZANidine 2 mg oral tablet (2 sources) Central alpha-2 Adrenergic Agonist Start: 10-21-19 End: 03-21-20 take 1 tablet by mouth three times daily as needed Tizanidine 2 mg tablet Discontinued 2 mg PO THREE TIMES A DAY as needed for muscle spasticity October 21, 2024 1:00am March 21, 2025 9:10am 1 ml triamcinolone acetonide 40 mg/ml injection (6 sources) Corticosteroid Start: 06-24-20 End: 06-24-20 triamcinolone acetonide 40 mg injection (KeNALog 40) [...] Onset: 10-31-2019 10-31-2019 Chronic Headache; including migraine (2 sources) Headache; Translations: [Headache] 10-21-2024 Episodic Headache; including migraine (1 source) Headache; including migraine; Translations: [Headache, unspecified] Onset: 11-13-2024 Immunizations and screening for infectious disease (3 sources) Vaccination needed; Translations: [Encounter for immunization] 08-01-2023 Episodic Menopausal disorders (20 sources) Menopausal syndrome; Translations: [Menopausal and female climacteric states] 10-31-2019 Chronic Nutritional deficiencies (20 sources) Vitamin D deficiency; Translations: [Vitamin D deficiency, unspecified] Onset: 10-31-2019 08-01-2023 Chronic Osteoarthritis (11 sources) Osteoarthritis of foot joint; 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] Onset: 05-02-2019 05-02-2019 Chronic Other connective tissue disease (20 sources) Plantar fasciitis; Translations: [Plantar fascial fibromatosis] Onset: 05-02-2019 05-02-2019 Episodic Other connective tissue disease (20 sources) Foot pain; Translations: [Pain in unspecified foot] 10-31-2019 Episodic Other connective tissue disease (20 sources) Calcaneal spur; Translations: [Calcaneal spur, unspecified foot] 10-31-2019 Episodic Other infections; including parasitic (2 sources) Personal history of other infectious and parasitic diseases; Translations: [History of COVID-19] 09-18-2024 Episodic Other inflammatory condition of skin (20 [...] neoplasm of cervix] Onset: 10-16-2015 10-31-2019 Episodic Other skin disorders (3 sources) Localized swelling of left hand; Translations: [Localized swelling, mass and lump, left upper limb] 03-21-2025 Episodic Other skin disorders (1 source) Localized swelling, mass and lump, left upper limb; Translations: [Localized swelling, mass and lump, left upper limb] Onset: 03-21-2025 Episodic Spondylosis; intervertebral disc disorders; other back problems (1 source) Degeneration of cervical intervertebral disc; Translations: [Other cervical disc degeneration, unspecified cervical region] 03-24-2025 Chronic Spondylosis; intervertebral disc disorders; other back problems (4 sources) Neck pain; Translations: [Cervicalgia] Onset: 03-21-2025 10-21-2024 Episodic Thyroid disorders (20 sources) Hypothyroidism; Translations: [Hypothyroidism, unspecified] Onset: 08-01-2023 10-31-2019 Chronic Transient cerebral ischemia (20 sources) Transient cerebral ischemia; Translations: [Transient cerebral ischemic attack, unspecified] Onset: 10-16-1987 10-31-2019 Chronic Unclassified (1 source) ASD (atrial septal defect); Translations: [ASD (atrial septal defect)] Onset: 10-31-2019 Unclassified (4 sources) Localized swelling on left hand; Translations: [R22.32 - Localized swelling, mass and lump, left upper limb] Past or Other Problems Problem Classification Problem [...] Test Name Value Interpretation Reference Range Facility Internal Medicine Office Vis [facility] 03-21-2025 Internal Medicine Office Visit [facility] [address] [place] [address] OFFICE VISIT Date of Service: 03/21/25 MR#: [id number] Acct: [id number] Name: JOSH HUFFMAN Rep #: [id number] : 1960 Provider: Dr. Chester lockett MD Age/Sex: 64/F [facility] [facility] Status: Signed Intake Vital Signs 03/21/25 09:12 Height 5 ft 9 in Weight: 220 lb BMI 32.5 BP 122/72 H Blood Pressure Location Lt brachial Position Sitting Respiration 16 Pulse 60 Pulse Source Monitor Temp 98.6 F Temp Source Temporal Pulse Oximetry (%) 97 Oxygen Delivery Method room air Intake Visit Reasons: 6 m Chief Complaint: 6 M FU Is patient in pain?: Yes (NECK PAIN Q AM) Pain scale (1-10): 4 Allergies No Known Allergies Allergy (Unverified 03/21/25 09:06) Medications ???Medication ???Instructions ???Recorded ???Confirmed ???Type Vit D 2000 PO 03/15/24 03/21/25 History aspirin 81 mg tablet,delayed 81 mg PO DAILY 03/15/24 03/21/25 H istory release cyanocobalamin (vitamin B-12) 500 250 mcg PO DAILY 03/15/24 5 History mcg tablet diclofenac sodium 1 % topical gel 2 g topical ONCE 03/15/24 5 History (Voltaren Arthritis Pain) milk thistle 1,000 mg PO 03/15/24 03/21/25 Hist ory psyllium husk 3.4 gram/5.8 gram ea PO DAILY 03/15/24 03/21/25 Hist ory oral powder (Metamucil [facility] Fiber) levothyroxine 100 mcg tablet 100 mcg PO .twice week #90 tabs 03/21/25 Rx levothyroxine 112 mcg tablet 112 mcg PO .five times weekly #180 06/12/24 03/21/25 Rx tabs lisinopril 10 1 tab PO DAILY #90 tabs 09/18/24 0 03/21/25 Rx mg-hydrochlorothiazide 12.5 mg tablet (Zestoretic) celecoxib 200 mg capsule 200 mg PO BID PRN pain #60 caps 03/21/25 Rx metoprolol succinate 100 mg 100 mg PO DAILY #90 tabs 02/20/25 03/21/25 Rx tablet,extended release 24 hr (Toprol XL) rosuvastatin 10 mg tablet 10 mg PO QDAY #90 tabs 03/21/25 Rx Have you fallen in the past year?: No PFSH Medical History (Updated 03/21/25 @ 12:[address] Chester Valentine MD) Localized swelling on left hand Neck pain Headache History of COVID-19 Health [...] at home: Yes HPI HPI Chief Complaint: 6 M FU Details: JOSH HUFFMAN, is a 64 F who presents to the office today for follow-up of her chronic medical conditions. Also has some concerns. She reports a localized area of swelling/thickening in her left hand/palm. This is chronic but has progressively worsened. Recently also noted pain in her left thumb area. Has been doing a lot more activities lately including gardening. No significant limitation of movement reported. She reports neck discomfort. She feels that she has had a limitation in range of movement. No recent trauma. As above, has been more active lately following fci. No numbness or tingling in her extremities. Recently had an executive physical at the [facility]. Had coronary calcium scoring which came back at 0. She also had other blood work including CRP and lipoprotein a both of which was slightly elevated. Recommendation was to start rosuvastatin. She however had questions about this and is yet to. History of hyperlipidemia. Other chronic medical conditions are largely stable. History of hypertension and blood pressure today at 122/72 mmHg. Recently had labs done with slightly low sodium level, she has been outdoors a lot. Also on a diuretic. ROS Const Constitutional: No body ache, chills, excessive sweating, fat (more content not included)... Normal [facility] Anion gap in Serum or Plasma Ordered By: Chester Valentine on 03-19-2025 Anion gap [Moles/Vol] 15 mmol/L - [facility] BUN/creatinine ratioOrdered By: Chester Valentine on 03-19-2025 Urea nitrogen/Creatinine [Mass ratio] 15.3 mg/mg - [facility] Basic Metabolic Profile (BMP )on 03-19-2025 BUN/CRE 15.3 RATIO Normal 08-04 [facility] Comment on above: Performed By: #### L [id number], [id number] #### [facility] [address] [place], [address] Calcium [Mass/Vol] 9.8 mg/dL Normal 7.6-11.0 [facility] Comment on above: Performed By: #### L [id number], [id number] #### [facility] [address] [place], [address] Chloride [Moles/Vol] 94 mmol/L Low 98-108 [facility] Comment on above: Performed By: #### L [id number], [id number] #### [facility] [address] [place], [address] CO2 [Moles/Vol] 23.3 mmol/L Normal 21.0-32.0 [facility] Comment on above: Performed By: #### L [id number], [id number] #### [facility] [address] [place], [address] Creatinine [Mass/Vol] 0.86 mg/dL Normal 0.70-1.20 [facility] Comment on above: Performed By: #### L [id number], [id number] #### [facility] [address] [place], [address] GAP 15 Normal - [facility] Comment on above: Performed By: #### L [id number], [id number] #### [facility] [address] [place], [address] GFR/1.73 sq M.predicted among non-blacks MDRD (S/P/Bld) [Vol rate/Area] 74 mL/min/{1.73_m2} Normal >60 [facility] Comment on above: Result Comment: mL/m in/1.73m2 CKD-EPI Creatinine Equation (2020) Performed By: #### L [id number], [id number] #### [facility] [address] [place], [address] Glucose [Mass/Vol] 92 mg/dL Normal 70-99 [facility] Comment on above: Performed By: #### L [id number], [id number] #### [facility] [address] [place], [address] Potassium [Moles/Vol] 4.0 mmol/L Normal 3.3-5.1 [facility] Comment on above: Performed By: #### L [id number], [id number] #### [facility] [address] [place], [address] Sodium [Moles/Vol] 132 mmol/L Low 133-145 [facility] Comment on above: Performed By: #### L [id number], [id number] #### [facility] [address] [place], [address] Urea nitrogen [Mass/Vol] 13 mg/dL Normal 4-19 [facility] Comment on above: Performed By: #### L [id number], [id number] #### [facility] [address] [place], [address] Carbon dioxide, total [Moles /volume] in Central venous bloodOrdered By: Chester Valentine on 03-19-2025 CO2 [Moles/Vol] 23.3 mmol/L 21.0-32.0 [facility] Chloride assayOrdered By: Lucía Valentine on 03-19-2025 Chloride [Moles/Vol] 94 mmol/L Low 98-108 [facility] Glomerular filtration rate ( GFR) estimation/1.73 sq m using serum, plasma, or whole bOrdered By: Chester Valentine on 03-19-2025 GFR/1.73 sq M.predicted among non-blacks MDRD (S/P/Bld) [Vol rate/Area] 74 mL/min/{1.73_m2} >60 [facility] Comment on above: mL/min/1.73m2 CKD-EP I Creatinine Equation (2020) Potassium measurement (mass/ volume)Ordered By: Chester Valentine on 03-19-2025 Potassium (Unsp spec) [Mass/Vol] 4.0 mmol/L 3.3-5.1 [facility] Serum creatinine measurement (mass/volume)Ordered By: Chester Valentine on 03-19-2025 Creatinine [Mass/Vol] 0.86 mg/dL 0.70-1.20 [facility] Serum glucose measurement (m ass/volume)Ordered By: Chester Valentine on 03-19-2025 Glucose [Mass/Vol] 92 mg/dL 70-99 [facility] Serum or plasma calcium bird urement (mass/volume)Ordered By: Chester Valentine on 03-19-2025 Calcium [Mass/Vol] 9.8 mg/dL 7.6-11.0 [facility] Serum or plasma urea nitroge n measurement (mass/volume)Ordered By: Chester Valentine on 03-19-2025 Urea nitrogen [Mass/Vol] 13 mg/dL 4-19 [facility] Sodium levelOrdered By: Myrna Valentine on 03-19-2025 Sodium [Moles/Vol] 132 mmol/L Low 133-145 [facility] TSH DL <= 0.005 mIU/L QnOrde red By: Chester Valentine on 03-19-2025 TSH Qn 0.996 uIU/mL 0.300-4.200 [facility] Thyroid Stim Hormone (TSH)on 03-19-2025 TSH 0.996 uIU/mL Normal 0.300-4.200 [facility] Comment on above: Performed By: #### L [id number], [id number] #### [facility] [address] [place], [address] 25(OH)D3 [facility] 2024 25-hydroxyvitamin D3 [Mass/Vol] 65.2 ng/mL Normal 31.0-80.0 [facility] Comment on above: Order Comment: Speci men Type: BLOOD SPECIMEN Ordering Facility: [facility] Address: [address] [place] [address] Performed By: #### 1 [id number] #### [facility] CLIA [id number] [address] [place] [address] [place] Apo B [facility] Apolipoprotein B [Mass/Vol] 90 mg/dL High <90 [facility] Comment on above: Order Comment: Speci men Type: BLOOD SPECIMEN Ordering Facility: [facility] Address: [address] [place] [address] Result Comment: Mode rate Risk: 90-129 mg/dL High Risk: >129 mg/dL Performed By: #### 1 989-3 #### [facility] CLIA [id number] [address] [place] [address] [place] BD DXA - AXIAL SKELETONon BD DXA - AXIAL SKELETON * * *Final Report* * * DATE OF EXAM: Dec 17 2024 9:32AM [facility] [id number] - BD DXA - AXIAL SKELETON / PROCEDURE REASON: Routine general medical examination at a health care facility * * * * Physician Interpretation * * * * EXAMINATION: DXA BONE DENSITOMETRY BD DXA - AXIAL SKELETON, BD DXA TRABECLR BONE SCORE (TBS) PATIENT DEMOGRAPHICS: Age: 64 years, Gender: Female SCANNER INFORMATION: DXA Model: A21 [employer] (S/N: [id number]) Date Scanned: 12/17/2024 9:32 AM CLINICAL HISTORY: [...] FOR MORE INFORMATION ABOUT DIAGNOSIS AND TREATMENT: [facility]:? www.ccf.org/arthritis/os samantha National Osteoporosis Foundation:? www.nof.org International Society of Clinical Densitometry www.iscd.org High School English Teacher: sens Transcribe Date/Time: Dec 17 2024 10:03A Dictated by : EN HANLEY MD This examination was interpreted and the report reviewed and electronically signed by: EN HANLEY MD on Dec 19 2024 4:23PM EST [id number] 1.4 Normal [facility] BD DXA TRABECLR BONE SCORE ( TBS)on 12-17-2024 BD DXA TRABECLR BONE SCORE (TBS) * * *Final Report* * * DATE OF EXAM: Dec 17 2024 9:32AM [facility] 0801 - BD DXA TRABECLR BONE SCORE (TBS) / PROCEDURE REASON: Routine general medical examination at a health care facility * * * * Physician Interpretation * * * * EXAMINATION: DXA BONE DENSITOMETRY BD DXA - AXIAL SKELETON, BD DXA TRABECLR BONE SCORE (TBS) PATIENT DEMOGRAPHICS: Age: 64 years, Gender: Female SCANNER INFORMATION: DXA Model: [employer] (S/N: [id number]) Date Scanned: 12/17/2024 9:32 AM CLINICAL HISTORY: [...] FOR MORE INFORMATION ABOUT DIAGNOSIS AND TREATMENT: [facility]:? www.ccf.org/arthritis/os samantha National Osteoporosis Foundation:? www.nof.org International Society of Clinical Densitometry www.iscd.org High School English Teacher: alverto Transcribe Date/Time: Dec 17 2024 10:03A Dictated by : EN HANLEY MD This examination was interpreted and the report reviewed and electronically signed by: EN HANLEY MD on Dec 19 2024 4:23PM EST [id number] 1.4 Normal [facility] CBC W Auto Differential pane l (Bld)on 12-17-2024 Basophils (Bld) [#/Vol] 0.04 10*3/uL Normal <0.11 [facility] Comment on above: Order Comment: Anish wing Type: BLOOD SPECIMENOrdering Facility: [facility] Address: [address] [place] [address] Performed By: #### 5 7021-8 ####[facility] [id number] [place] [address] [place] Basophils/100 WBC (Bld) 0.9 % Normal [facility] Comment on above: Order Comment: Anish wing Type: BLOOD SPECIMENOrdering Facility: [facility] Address: [address] [place] [address] Performed By: #### 5 7021-8 ####[facility] [id number] [place] [address] [place] Differential cell count method Nom (Bld) Auto Normal [facility] Comment on above: Order Comment: Speci men Type: BLOOD SPECIMENOrdering Facility: [facility] Address: [address] [place] [address] Performed By: #### 5 7021-8 ####[facility] [id number] [place] [address] [place] Eosinophils (Bld) [#/Vol] 0.05 10*3/uL Normal <0.46 [facility] Comment on above: Order Comment: Speci men Type: BLOOD SPECIMENOrdering Facility: [facility] Address: [address] [place] [address] Performed By: #### 5 7021-8 ####[facility] [id number] [place] [address] [place] Eosinophils/100 WBC (Bld) 1.1 % Normal [facility] Comment on above: Order Comment: Speci men Type: BLOOD SPECIMENOrdering Facility: [facility] Address: [address] [place] [address] Performed By: #### 5 7021-8 ####[facility] [id number] [place] [address] [place] Erythrocyte distribution width (RBC) [Ratio] 12.1 % Normal 11.5-15.0 [facility] Comment on above: Order Comment: Speci men Type: BLOOD SPECIMENOrdering Facility: [facility] Address: [address] [place] [address] Performed By: #### 5 7021-8 ####[facility] [id number] [place] [address] [place] Hematocrit (Bld) [Volume fraction] 39.4 % Normal 36.0-46.0 [facility] Comment on above: Order Comment: Speci men Type: BLOOD SPECIMENOrdering Facility: [facility] Address: [address] [place] [address] Performed By: #### 5 7021-8 ####[facility] [id number] [place] [address] [place] Hemoglobin (Bld) [Mass/Vol] 13.2 g/dL Normal 11.5-15.5 [facility] Comment on above: Order Comment: Speci men Type: BLOOD SPECIMENOrdering Facility: [facility] Address: [address] [place] [address] Performed By: #### 5 7021-8 ####[facility] [id number] [place] [address] [place] Immature granulocytes (Bld) [#/Vol] 10*3/uL Normal <0.10 [facility] Comment on above: Order Comment: Speci men Type: BLOOD SPECIMENOrdering Facility: [facility] Address: [address] [place] [address] Performed By: #### 5 7021-8 ####[facility] [id number] [place] [address] [place] Immature granulocytes/100 WBC (Bld) 0.4 % Normal [facility] Comment on above: Order Comment: Speci men Type: BLOOD SPECIMENOrdering Facility: [facility] Address: [address] [place] [address] Performed By: #### 5 7021-8 ####[facility] [id number] [place] [address] [place] Lymphocytes (Bld) [#/Vol] 1.44 10*3/uL Normal 1.00-4.00 [facility] Comment on above: Order Comment: Speci men Type: BLOOD SPECIMENOrdering Facility: [facility] Address: [address] [place] [address] Performed By: #### 5 7021-8 ####[facility] [id number] [place] [address] [place] Lymphocytes/100 WBC (Bld) 31.0 % Normal [facility] Comment on above: Order Comment: Speci men Type: BLOOD SPECIMENOrdering Facility: [facility] Address: [address] [place] [address] Performed By: #### 5 7021-8 ####[facility] [id number] [place] [address] [place] MCH (RBC) [Entitic mass] 34.1 pg High 26.0-34.0 [facility] Comment on above: Order Comment: Speci men Type: BLOOD SPECIMENOrdering Facility: [facility] Address: [address] [place] [address] Performed By: #### 5 7021-8 ####[facility] [id number] [place] [address] [place] MCHC (RBC) [Mass/Vol] 33.5 g/dL Normal 30.5-36.0 [facility] Comment on above: Order Comment: Speci men Type: BLOOD SPECIMENOrdering Facility: [facility] Address: [address] [place] [address] Performed By: #### 5 7021-8 ####[facility]IA [id number] [place] [address] [place] MCV (RBC) [Entitic vol] 101.8 fL High 80.0-100.0 [facility] Comment on above: Order Comment: Speci men Type: BLOOD SPECIMENOrdering Facility: [facility] Address: [address] [place] [address] Performed By: #### 5 7021-8 ####[facility]IA [id number] [place] [address] [place] Monocytes (Bld) [#/Vol] 1.10 10*3/uL High <0.87 [facility] Comment on above: Order Comment: Speci men Type: BLOOD SPECIMENOrdering Facility: [facility] Address: [address] [place] [address] Performed By: #### 5 7021-8 ####[facility] [id number] [facility] [place] [address] [place] Monocytes/100 WBC (Bld) 23.7 % Normal [facility] Comment on above: Order Comment: Speci men Type: BLOOD SPECIMENOrdering Facility: [facility] Address: [address] [place] [address] Performed By: #### 5 7021-8 ####[facility] [id number] [place] [address] [place] Neutrophils (Bld) [#/Vol] 1.99 10*3/uL Normal 1.45-7.50 [facility] Comment on above: Order Comment: Speci men Type: BLOOD SPECIMENOrdering Facility: [facility] Address: [address] [place] [address] Performed By: #### 5 7021-8 ####[facility] [id number] [place] [address] [place] Neutrophils/100 WBC (Bld) 42.9 % Normal [facility] Comment on above: Order Comment: Speci men Type: BLOOD SPECIMENOrdering Facility: [facility] Address: [address] [place] [address] Performed By: #### 5 7021-8 ####[facility] [id number] [place] [address] [place] Nucleated RBC (Bld) [#/Vol] 0.02 10*3/uL High <0.01 [facility] Comment on above: Order Comment: Speci men Type: BLOOD SPECIMENOrdering Facility: [facility] Address: [address] [place] [address] Performed By: #### 5 7021-8 ####[facility] [id number] [place] [address] [place] Nucleated RBC/100 WBC (Bld) [Ratio] 0.4 /100 WBC Normal [facility] Comment on above: Order Comment: Speci men Type: BLOOD SPECIMENOrdering Facility: [facility] Address: [address] [place] [address] Performed By: #### 5 7021-8 ####[facility] [id number] [place] [address] [place] Platelet mean volume (Bld) [Entitic vol] 10.7 fL Normal 9.0-12.7 [facility] Comment on above: Order Comment: Speci men Type: BLOOD SPECIMENOrdering Facility: [facility] Address: [address] [place] [address] Performed By: #### 5 7021-8 ####[facility] [id number] [place] [address] [place] Platelets (Bld) [#/Vol] 267 10*3/uL Normal 150-400 [facility] Comment on above: Order Comment: Speci men Type: BLOOD SPECIMENOrdering Facility: [facility] Address: [address] [place] [address] Performed By: #### 5 7021-8 ####[facility] [id number] [place] [address] [place] RBC (Bld) [#/Vol] 3.87 10*6/uL Low 3.90-5.20 [facility] Comment on above: Order Comment: Speci men Type: BLOOD SPECIMENOrdering Facility: [facility] Address: [address] [place] [address] Performed By: #### 5 7021-8 ####[facility] [id number] [place] [address] [place] WBC (Bld) [#/Vol] 4.64 10*3/uL Normal 3.70-11.00 [facility] Comment on above: Order Comment: Speci men Type: BLOOD SPECIMENOrdering Facility: [facility] Address: [address] [place] [address] Performed By: #### 5 7021-8 ####[facility] [id number] [place] [address] [place] CNOVon 12-17-2024 CNOV Office Visit (EXEPMN ) -------- JOSH HUFFMAN ([id number]) 1960 F Date Time Provider Department 12/17/24 [...] B-na Influenza-2022; given today Shingrix-x2; 2020 Covid-19 0218-9598- 2022; given today RSV- 2022 See Immunization record in EPIC. Discussed with patient current recommendations from the CDC for routine adult immunizations. Questions answered. Pt. verbalizes understanding of information discussed. Provided patient with [facility] Immunization System Document and VIS sheet. VISUAL ACUITY Patient declines vision exam Date of Last Exam - 2023 Vision Correction Reading Glasses David Hull MD 12/17/2024 5:27 PM Signed HEALTH EVALUATION ON: Josh Huffman [address] [facility] [id number] DATE OF EXAMINATION: December 17, 2024 Age: [age] year old Clinic No. : [id number] PRESENT COMPLAINTS: Physical examination. MEDICATION ALLERGIES: None. PRESENT MEDICATIONS: Lisinopril HCTZ 10/12.5 mg. Take one tablet daily. Toprol XL 100 mg. Take one tablet daily. Synthroid (levothyroxine) 100 mcg once daily 2x/week (). Synthroid (levothyroxine) 112 mcg once daily 5x/week [...] (10/2019). Hyperlipidemia (10/2019). Elevated Lp(a). Prediabetes (07/2023: XSI=989, A1c=5.9%). Ascending aorta dilation (4.[address] 10/2019-07/2023). Transient Ischemic Attack (1987; during first , diagnosed ASD, repaired at [facility] after delivery). Atrial Septal Defect (1987; repaired at [facility] at age 27). Hypertension (2012). Hypothyroidism [...] in 1979. (more content not included)... 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 9. Atrial septal defect (1987; repaired at [facility] at age 27). 10. Hypertension (2012). 11. Hypothyroidism (2017). Current dose of levothyroxine [...] comparison of standards for age and gender. 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 Anything beyond ten minutes [...] same mu (more content not included)... Normal [facility] CRP SerPl HS-mCncon 12-18-19 25 CRP High sensitivity method [Mass/Vol] 5.1 mg/L High <3.1 [facility] Comment on above: Order Comment: Speci men Type: BLOOD SPECIMENOrdering Facility: [facility] Address: [address] [place] [address] Result Comment: hsCR P < 1.0 mg/L, relative risk is low hsCRP 1.0-3.0 mg/L, relative risk is average hsCRP > 3.0 mg/L, relative risk is high Reference: Mckenna TA, Macey GA, Jaylon RW, et al. Markers of Inflammation and Cardiovascular Disease. Application to Clinical and Public Health Practice. A Statement for Healthcare Professionals from the Centers for Disease Control and Prevention and the [place] Heart Association. Circulation 2003;107:499-511. Performed By: #### 1 8262-6, 2324-2, 45288-1 ####[facility] [id number] [place] [address] [place] [address] CALCIUM SCORING SELF Brooklynn n 12-17-2024 CT CALCIUM SCORING SELF PAY * * *Final Report* * * DATE OF EXAM: Dec 17 2024 12:33PM [facility] [place] CALCIUM SCORING [...] AORTIC DIMENSIONS: AORTIC ROOT: 3.6 cm measured rrmiy-lu-[id number] mid ASCENDING THORACIC AORTA: 4.5 cm mid DESCENDING THORACIC AORTA: 2.7 cm CORONARY ANATOMY: Normal origin of the coronary arteries Calcium Score (Agatston Units): LM: 0 AU LAD: 0 AU LCx: 0 AU RCA: 0 AU Other: 0 AU Total: 0 AU Director Of Market Research (topogram) images: No additional findings. IMPRESSION: NO CORONARY CALCIFICATION - Total Coronary Calcium Score (CAC) = 0 AU - mid ASCENDING THORACIC AORTA: 4.5 cm Recommend Cardiology consultation and Consider contrast enhanced Thoracic Aorta CTA or MRI/MRA for definitive evaluation. High School English Teacher: CHELSEA Transcribe Date/Time: Dec 17 2024 12:54P Dictated by : THERESA VICENTE DO This examination was interpreted and the report reviewed and electronically signed by: THERESA VICENTE DO on Dec 17 2024 1:53PM EST [id number] Normal [facility] CT Heart and Coronary arteri es for calcium scoring WO contraston 12-17-2024 IMPRESSION: NO CORON LUISITO CALCIFICATION - Total Coronary Calcium Score (CAC) = 0 AU - mid ASCENDING THORACIC AORTA: 4.5 cm Recommend Cardiology consultation and Consider contrast enhanced Thoracic Aorta CTA or MRI/MRA for definitive evaluation. High School English Teacher: CHELSEA Transcribe Date/Time: Dec 17 2024 12:54P Dictated by : THERESA VICENTE DO This examination was interpreted and the report reviewed and electronically signed by: THERESA VICENTE DO on Dec 17 2024 1:53PM EST DIVISION OF RADIOLOGY * * *Final Report* * * DATE OF EXAM: Dec 17 2024 12:33PM [facility] [place] CALCIUM SCORING [...] AORTIC DIMENSIONS: AORTIC ROOT: 3.6 cm measured hjcim-uk-irdes mid ASCENDING THORACIC AORTA: 4.5 cm mid DESCENDING THORACIC AORTA: 2.7 cm CORONARY ANATOMY: Normal origin of the coronary arteries Calcium Score (Agatston Units): LM: 0 AU LAD: 0 AU LCx: 0 AU RCA: 0 AU Other: 0 AU Total: 0 AU Director Of Market Research (topogram) images: No additional findings. DIVISION OF RADIOLOGY Provider, [facility] - 12/17/2024 * * *Final Report* * * DATE OF EXAM: Dec 17 2024 12:33PM [facility] [place] CALCIUM SCORING [...] AORTIC DIMENSIONS: AORTIC ROOT: 3.6 cm measured rrjjp-ur-szwmx mid ASCENDING THORACIC AORTA: 4.5 cm mid DESCENDING THORACIC AORTA: 2.7 cm CORONARY ANATOMY: Normal origin of the coronary arteries Calcium Score (Agatston Units): LM: 0 AU LAD: 0 AU LCx: 0 AU RCA: 0 AU Other: 0 AU Total: 0 AU Director Of Market Research (topogram) images: No additional findings. IMPRESSION IMPRESSION: NO CORONARY CALCIFICATION - Total Coronary Calcium Score (CAC) = 0 AU - mid ASCENDING THORACIC AORTA: 4.5 cm Recommend Cardiology consultation and Consider contrast enhanced Thoracic Aorta CTA or MRI/MRA for definitive evaluation. High School English Teacher: CHELSEA Transcribe Date/Time: Dec 17 2024 12:54P Dictated by : THERESA VICENTE DO This examination was interpreted and the report reviewed and electronically signed by: THERESA VICENTE DO on Dec 17 2024 1:53PM EST [facility] Radiology Study observation (narrative) [facility] CT Heart and Coronary arteri es for calcium scoring WO contrastOrdered By: [facility] Provider on 12-17-2024 [facility] Cholesterol in LDL Direct as say [Mass/Vol]on 12-17-2024 Cholesterol in LDL [Mass/Vol] 123 mg/dL High <100 [facility] Comment on above: Order Comment: Speci men Type: BLOOD SPECIMENOrdering Facility: [facility] Address: [address] [place] [address] Result Comment: <100 mg/dL, Optimal 100-129 mg/dL, Near optimal/above optimal 130-159 mg/dL, Borderline high 160-189 mg/dL, High >189 mg/dL, Very high Secondary prevention optimal LDL Cholesterol levels are recommended to be < 70 mg/dL Performed By: #### 1 8262-6, 2324-2, 33413-4 ####[facility] [id number] [address] STATES OF [facility] Cholesterol in VLDL [Mass/Vol] 7 mg/dL Normal <30 [facility] Comment on above: Order Comment: Teai men Type: BLOOD SPECIMENOrdering Facility: [facility] Address: [address] [place] [address] Performed By: #### 1 8262-6, 2324-2, 85824-9 ####[facility] [id number] [place] [id number] [place] Comprehensive metabolic 2000 panelon 12-17-2024 Albumin [Mass/Vol] 4.1 g/dL Normal 3.9-4.9 [facility] Comment on above: Order Comment: Teai men Type: BLOOD SPECIMEN [facility] Address: [address] [place] [address] Performed By: #### 1 989-3 #### [facility] CLIA [id number] [address] [place] [address] [place] ALP [Catalytic activity/Vol] 65 U/L Normal 34-123 [facility] Comment on above: Order Comment: Speci men Type: BLOOD SPECIMEN [facility] Address: [address] [place] [id number] Performed By: #### 1 989-3 #### [facility] CLIA [id number] [address] [place] [address] [place] ALT [Catalytic activity/Vol] 20 U/L Normal 7-38 [facility] Comment on above: Order Comment: Speci men Type: BLOOD SPECIMEN [facility] Address: [address] [place], [place] [address] Performed By: #### 1 989-3 #### [facility] CLIA [id number] [address] [place], [place] [address] [place] Anion gap [Moles/Vol] 12 mmol/L Normal 8-15 [facility] Comment on above: Order Comment: Speci men Type: BLOOD SPECIMEN [facility] Address: [address] [place] [address] Performed By: #### 1 989-3 #### [facility] CLIA [id number] [address] [place] [address] [place] AST [Catalytic activity/Vol] 29 U/L Normal 13-35 [facility] Comment on above: Order Comment: Speci men Type: BLOOD SPECIMEN [facility] Address: [address] [place], [place] [address] Performed By: #### 1 989-3 #### [facility] CLIA [id number] [address] [place], [place] [address] [place] Bilirubin [Mass/Vol] 0.4 mg/dL Normal 0.2-1.3 [facility] Comment on above: Order Comment: Speci men Type: BLOOD SPECIMEN [facility] Address: [address] [place], [place] [address] Performed By: #### 1 989-3 #### [facility] CLIA [id number] [address] [place] [address] [place] Calcium [Mass/Vol] 9.2 mg/dL Normal 8.5-10.2 [facility] Comment on above: Order Comment: Speci men Type: BLOOD SPECIMEN [facility] Address: [address] [place] [address] Performed By: #### 1 989-3 #### [facility] CLIA [id number] [address] [place] [address] [place] Chloride [Moles/Vol] 92 mmol/L Low 98-107 [facility] Comment on above: Order Comment: Speci men Type: BLOOD SPECIMEN [facility] Address: [address] [place] [address] Performed By: #### 1 989-3 #### [facility] CLIA [id number] [address] [place] [address] [place] CO2 [Moles/Vol] 26 mmol/L Normal 22-30 [facility] Comment on above: Order Comment: Speci men Type: BLOOD SPECIMEN [facility] Address: [address] [place] [address] Performed By: #### 1 989-3 #### [facility] CLIA [id number] [address] [place] [address] [place] Creatinine [Mass/Vol] 0.78 mg/dL Normal 0.58-0.96 [facility] Comment on above: Order Comment: Speci men Type: BLOOD SPECIMEN [facility] Address: [address] [place] [address] Performed By: #### 1 989-3 #### [facility] CLIA [id number] [address] [place] [address] [place] Creatinine and Glomerular filtration rate.predicted panel (S/P/Bld) 84 mL/min/1.73m??? Normal >=60 [facility] Comment on above: Order Comment: Anish wing Type: BLOOD SPECIMEN [facility] Address: [address] [place] [address] Result Comment: Andree mated Glomerular Filtration Rate [...] GFR. Performed By: #### 1 989-3 #### [facility] CLIA [id number] [address] [place] [address] [place] Glucose [Mass/Vol] 100 mg/dL High 74-99 [facility] Comment on above: Order Comment: Anish wing Type: BLOOD SPECIMEN [facility] Address: [address] [place] [address] Result Comment: The [place] Diabetes Association (ADA) provides guidance for cutoff [...] Standards of Medical Care in Diabetes 2016, [place] [employer]. Diabetes Care. 2016.39(Suppl 1). Performed By: #### 1 989-3 #### [facility] CLIA [id number] [address] [place] [address] [place] Potassium [Moles/Vol] 4.2 mmol/L Normal 3.7-5.1 [facility] Comment on above: Order Comment: Anish wing Type: BLOOD SPECIMEN Ordering Facility: [facility] Address: [address] [place], [place] [address] Performed By: #### 1 989-3 #### [facility] CLIA [id number] [address] [place] [address] [place] Protein [Mass/Vol] 6.5 g/dL Normal 6.3-8.0 [facility] Comment on above: Order Comment: Speci men Type: BLOOD SPECIMEN Ordering Facility: [facility] Address: [address] [place] [address] Performed By: #### 1 989-3 #### [facility] CLIA [id number] [address] [place] [address] [place] Sodium [Moles/Vol] 130 mmol/L Low 136-144 [facility] Comment on above: Order Comment: Speci men Type: BLOOD SPECIMEN Ordering Facility: [facility] Address: [address] [place] [address] Performed By: #### 1 989-3 #### [facility] CLIA [id number] [address] [place] [address] [place] Urea nitrogen [Mass/Vol] 11 mg/dL Normal 7-21 [facility] Comment on above: Order Comment: Speci men Type: BLOOD SPECIMEN Ordering Facility: [facility] Address: [address] [place] [address] Performed By: #### 1 989-3 #### [facility] CLIA [id number] [address] [place] [address] [place] DBT Breast - bilateral scree yairn 12-17-2024 IMPRESSION: There is no mammographic evidence [...] Ambar Lugo M.D. Electronically signed on: 12/17/2024 High School English Teacher: ORTEGA Parkerrijosh Date/Time: Dec 17 2024 10:51A Dictated by : AMBAR LUGO MD This examination was interpreted and the report reviewed and electronically signed by: AMBAR LUGO MD on Dec 17 2024 1:10PM [facility] * * *Final Report* * * DATE OF EXAM: Dec 17 2024 1:02PM W 0662 - KATE SCREENING W RADHA EX HLTH -NB / PROCEDURE REASON: Routine general medical examination at a health care facility * * * * Physician Interpretation * * * * RESULT: [address] [place] [address] #[id number] - KATE SCREENING W RADHA EX HLTH -NB HISTORY: [...] significant interval changes. DIVISION OF RADIOLOGY Provider, [facility] - 12/17/2024 * * *Final Report* * * DATE OF EXAM: Dec 17 2024 1:02PM MCW 0662 - KATE SCREENING W RADHA EX HLTH -NB / PROCEDURE REASON: Routine general medical examination at a health care facility * * * * Physician Interpretation * * * * RESULT: [address] [facility] [place] [address] #[id number] - KATE SCREENING W RADHA EX HLTH -NB HISTORY: [...] Ambar Lugo M.D. Electronically signed on: 12/17/2024 High School English Teacher: ORTEGA Transcribe Date/Time: Dec 17 2024 10:51A Dictated by : AMBAR LUGO MD This examination was interpreted and the report reviewed and electronically signed by: AMBAR LUGO MD on Dec 17 2024 1:10PM EST [facility] Radiology Study observation (narrative) [facility] DBT Breast - bilateral scree ningOrdered By: [facility] Provider on 12-17-2024 [facility] EX ALB/CREAT RND URon 2024 Albumin DL <= 20 mg/L (U) [Mass/Vol] mg/dL Normal [facility] Comment on above: Order Comment: Speci men Type: BLOOD SPECIMEN Ordering Facility: [facility] Address: [address] [place] [address] Performed By: #### 1 989-3 #### [facility] CLIA [id number] [address] [place] [address] [place] Albumin/Creatinine (U) [Mass ratio] <19 Normal <30 [facility] Comment on above: Order Comment: Speci men Type: BLOOD SPECIMEN Ordering Facility: [facility] Address: [address] [place] [address] Result Comment: Adul t Male and Female Nephrotic Criteria: <30 mg/g is considered normal to mildly increased 30-300 mg/g is considered moderately increased >300 mg/g is considered severely increased KDIGO. (2013). KDIGO 2012 Clinical Practice Guideline for the Evaluation and Management of Chronic Kidney Disease. Official Journal of the International Society of Nephrology, 3(1), 1-150. Performed By: #### 1 989-3 #### [facility] CLIA [id number] [address] [place] [address] [place] Creatinine (U) [Mass/Vol] 64.0 mg/dL Normal 20.0-300.0 [facility] Comment on above: Order Comment: Speci men Type: BLOOD SPECIMEN Ordering Facility: [facility] Address: [address] [place] [address] Performed By: #### 1 989-3 #### [facility] CLIA [id number] [address] [place] [address] [place] EX UA CHEMSTRIPon 12-17-2024 Bilirubin Ql (U) Negative Normal Negative [facility] Comment on above: Order Comment: Speci men Type: URINE SPECIMENOrdering Facility: [facility] Address: [address] [place] [address] Performed By: #### U AEX ####[facility] [id number] [place] [address] [place] Clarity (Unsp spec) Clear Normal [facility] Comment on above: Order Comment: Speci men Type: URINE SPECIMENOrdering Facility: [facility] Address: [address] [place] [address] Performed By: #### U AEX ####[facility] [id number] [address] [place] [address] [place] Color (U) Yellow Normal Yellow [facility] Comment on above: Order Comment: Speci men Type: URINE SPECIMENOrdering Facility: [facility] Address: [address] [place] [address] Performed By: #### U AEX ####[facility] [id number] [place] [id number] [place] Glucose Test strip (U) [Mass/Vol] Negative Normal Negative [facility] Comment on above: Order Comment: Speci men Type: URINE SPECIMENOrdering Facility: [facility] Address: [address] [place] [address] Performed By: #### U AEX ####[facility] [id number] [place] [address] [place] Hemoglobin Ql (U) Negative Normal Negative [facility] Comment on above: Order Comment: Speci men Type: URINE SPECIMENOrdering Facility: [facility] Address: [address] [place] [address] Performed By: #### U AEX ####[facility] [id number] [place] [id number] [place] Ketones Ql (U) Negative Normal Negative [facility] Comment on above: Order Comment: Speci men Type: URINE SPECIMENOrdering Facility: [facility] Address: [address] [place], [place] [address] Performed By: #### U AEX ####[facility] [id number] [place] [id number] [place] Leukocyte esterase Test strip Ql (U) Negative Normal Negative [facility] Comment on above: Order Comment: Speci men Type: URINE SPECIMENOrdering Facility: [facility] Address: [address] [place] [address] Performed By: #### U AEX ####[facility] [id number] [place] [address] [place] Nitrite Ql (U) Negative Normal Negative [facility] Comment on above: Order Comment: Speci men Type: URINE SPECIMENOrdering Facility: [facility] Address: [address] [place] [address] Performed By: #### U AEX ####[facility] [id number] [place] [address] [place] pH (U) 7.0 [pH] Normal <8.5 [facility] Comment on above: Order Comment: Speci men Type: URINE SPECIMENOrdering Facility: [facility] Address: [address] [place] [address] Performed By: #### U AEX ####[facility] [id number] [place] [address] [place] Protein (U) [Mass/Vol] Negative Normal Negative [facility] Comment on above: Order Comment: Speci men Type: URINE SPECIMENOrdering Facility: [facility] Address: [address] [place] [address] Performed By: #### U AEX ####[facility] [id number] [place] [address] [place] Specific gravity (U) [Rel density] 1.011 Normal 1.005-1.030 [facility] Comment on above: Order Comment: Speci men Type: URINE SPECIMENOrdering Facility: [facility] Address: [address] [place] [address] Performed By: #### U AEX ####[facility] [id number] [place] [address] [place] Urobilinogen Ql (U) 0.2 EU/dL Normal 0.2-1.0 EU/dL [facility] Comment on above: Order Comment: Speci men Type: URINE SPECIMENOrdering Facility: [facility] Address: [address] [place] [address] Performed By: #### U AEX ####[facility] [id number] [place] [address] [place] Ferritin SerPl-mCncon 2024 Ferritin [Mass/Vol] 667.0 ng/mL High 14.7-205.1 [facility] Comment on above: Order Comment: Speci men Type: BLOOD SPECIMEN [facility] Address: [address] [place] [address] Performed By: #### 1 989-3 #### [facility] CLIA [id number] [address] [place] [address] [place] GGT SerPl-cCncon 12-17-2024 Gamma glutamyl transferase [Catalytic activity/Vol] 43 U/L Normal 6-46 [facility] Comment on above: Order Comment: Speci men Type: BLOOD SPECIMEN [facility] Address: [address] [place] [address] Performed By: #### 1 989-3 #### [facility] CLIA [id number] [address] [place] [address] [place] HbA1c (Bld)on 12-17-2024 Average glucose Estimated from glycated hemoglobin (Bld) [Mass/Vol] 120 mg/dL Normal [facility] Comment on above: Order Comment: Speci men Type: BLOOD SPECIMENOrdering Facility: [facility] Address: [address] [place] [address] Result Comment: eAG: (Estimated average glucose) is a calculated value from HgbA1c and is accounting representative of the average blood glucose level in the last 2-3 month period. Performed By: #### 5 5454-3 ####[facility] [id number] [place] [address] [place] HbA1c (Bld) [Mass fraction] 5.8 % High 4.3-5.6 [facility] Comment on above: Order Comment: Speci men Type: BLOOD SPECIMENOrdering Facility: [facility] Address: [address] [place] [address] Result Comment: Herminio ican Diabetes Association guidelines indicate that patients with HgbA1c in the range 5.7-6.4% are at increased risk for development of diabetes, and intervention by lifestyle modification may be beneficial. HgbA1c greater or equal to 6.5% is considered diagnostic of diabetes. Performed By: #### 5 5454-3 ####[facility] [id number] [place] [address] [place] Iron and Iron binding capaci ty panelon 12-17-2024 Iron [Mass/Vol] 73 ug/dL Normal 41-186 [facility] Comment on above: Order Comment: Speci men Type: BLOOD SPECIMEN [facility] Address: [address] [place] [address] Performed By: #### 1 989-3 #### [facility] CLIA [id number] [address] [place] [address] [place] Iron binding capacity [Mass/Vol] 302 ug/dL Normal 232-386 [facility] Comment on above: Order Comment: Teai men Type: BLOOD SPECIMEN [facility] Address: [address] [place] [address] Performed By: #### 1 989-3 #### [facility] CLIA [id number] [address] [place] [address] [place] Iron/TIBC [Molar ratio] 24.2 % Normal 15.0-57.0 [facility] Comment on above: Order Comment: Speci men Type: BLOOD SPECIMEN Order[facility] Address: [address] [place] [address] Performed By: #### 1 989-3 #### [facility] CLIA [id number] [address] [place] [address] [place] LPa SerPl-mCncon 12-17-2024 Lipoprotein a [Mass/Vol] 146 mg/dL High <30 [facility] Comment on above: Order Comment: Speci men Type: BLOOD SPECIMEN [facility] Address: [address] [place] [address] Performed By: #### 1 989-3 #### [facility] CLIA [id number] [address] [place] [address] [place] Lipid 1996 panelon Cholesterol [Mass/Vol] 190 mg/dL Normal <200 [facility] Comment on above: Order Comment: Speci men Type: BLOOD SPECIMENOrdering Facility: [facility] Address: [address] [place] [address] Result Comment: <200 mg/dL, Desirable 200-239 mg/dL, Borderline high >239 mg/dL, High Performed By: #### 3 084-1, 3024-7, 97998-3, 3016-3 ####[facility] [id number] [address] [place] Cholesterol in HDL [Mass/Vol] 60 mg/dL Normal >39 [facility] Comment on above: Order Comment: Speci men Type: BLOOD SPECIMENOrdering Facility: [facility] Address: [address] [place] [address] Result Comment: 40-5 9 mg/dL, Acceptable >59 mg/dL, High: Negative risk factor for coronary heart disease <40 mg/dL, Low: Positive risk factor for coronary heart disease Performed By: #### 3 084-1, 3024-7, 38526-6, 3016-3 ####[facility] [id number] [place] [id number] [place] Cholesterol in LDL [Mass/Vol] 106 mg/dL High <100 [facility] Comment on above: Order Comment: Speci men Type: BLOOD SPECIMENOrdering Facility: [facility] Address: [address] [place] [address] Result Comment: <100 mg/dL, Optimal 100-129 mg/dL, Near optimal/above optimal 130-159 mg/dL, Borderline high 160-189 mg/dL, High >189 mg/dL, Very high Secondary prevention optimal LDL Cholesterol levels are recommended to be < 70 mg/dL Performed By: #### 3 084-1, 3024-7, 20319-4, 3016-3 ####[facility] [id number] [id number] [address] [place] Cholesterol in LDL/Cholesterol in HDL [Mass ratio] 1.77 {ratio} Normal <2.54 [facility] Comment on above: Order Comment: Speci men Type: BLOOD SPECIMENOrdering Facility: [facility] Address: [address] [place] [address] Result Comment: Refe rence: 1. National Cholesterol Education Program ATP III Guideline At-A-Glance Quick Desk Reference: National Heart, Lung, and Blood [place]. National Institutes of Health. 2001: NIH Publication No. 01-3305. 2. An International Atherosclerosis Society position paper: global recommendations for the management of dyslipidemia: executive summary, Atherosclerosis. 2014: 232(2):410-413. Performed By: #### 3 084-1, 3024-7, 59388-7, 3015-3 ####[facility] [id number] [facility] [id number] [address] [place] Cholesterol in VLDL [Mass/Vol] 24 mg/dL Normal <30 [facility] Comment on above: Order Comment: Speci men Type: BLOOD SPECIMENOrdering Facility: [facility] Address: [address] [place] [address] Performed By: #### 3 084-1, 3024-7, 55749-6, 6-3 ####[facility] [id number] [address] [id number] [address] [place] Cholesterol non HDL [Mass/Vol] 130 mg/dL High <130 [facility] Comment on above: Order Comment: Speci men Type: BLOOD SPECIMENOrdering Facility: [facility] Address: [address] [place] [address] Result Comment: <130 mg/dL, Optimal 130-159 mg/dL, Near optimal/above optimal 160-189 mg/dL, Borderline high 190-219 mg/dL, High >219 mg/dL, Very high Secondary prevention optimal non HDL Cholesterol levels are recommended to be <100 mg/dL Performed By: #### 3 084-1, 3024-7, 93070-0, 3016-3 ####[facility] [id number] [address] [address] [place] Cholesterol.total/Ch olesterol in HDL [Mass ratio] 3.17 {ratio} Normal <5.10 [facility] Comment on above: Order Comment: Speci men Type: BLOOD SPECIMENOrdering Facility: [facility] Address: [address] [place] [address] Performed By: #### 3 084-1, 3024-7, 37015-9, 3016-3 ####[facility] [id number] [place] [id number] [place] FASTING TIME 12 hrs Normal [facility] Comment on above: Order Comment: Speci men Type: BLOOD SPECIMENOrdering Facility: [facility] Address: [address] [place] [address] Performed By: #### 3 084-1, 3024-7, 25467-0, 3016-3 ####[facility] [id number] [address] [address] [place] Triglyceride [Mass/Vol] 120 mg/dL Normal <150 [facility] Comment on above: Order Comment: Speci men Type: BLOOD SPECIMENOrdering Facility: [facility] Address: [address] [place] [address] Result Comment: <150 mg/dL, Normal 150-199 mg/dL, Borderline high 200-499 mg/dL, High >499 mg/dL, Very high Performed By: #### 3 084-1, 3024-7, 19018-4, 3016-3 ####[facility] [id number] [id number] [place] [address] [place] KATE SCREENING W RADHA EX HLTH -NBon 12-17-2024 KATE SCREENING W RADHA EX HLTH -NB * * *Final Report* * * DATE OF EXAM: Dec 17 2024 1:02PM MCW 0662 - KATE SCREENING W RADHA EX HLTH -NB / PROCEDURE REASON: Routine general medical examination at a health care facility * * * * Physician Interpretation * * * * RESULT: [facility] [address] [facility] [address] [place] [address] #[id number] - KATE SCREENING W RADHA EX HLTH -NB HISTORY: [...] Ambar Lugo M.D. Electronically signed on: 12/17/2024 High School English Teacher: MAGVIW Transcribe Date/Time: Dec 17 2024 10:51A Dictated by : AMBAR LUGO MD This examination was interpreted and the report reviewed and electronically signed by: AMBAR LUGO MD on Dec 17 2024 1:10PM EST [id number] Normal [facility] T4 Free SerPl-mCncon 12-17- 025 Free T4 [Mass/Vol] 1.7 ng/dL Normal 0.9-1.7 [facility] Comment on above: Order Comment: Speci men Type: BLOOD SPECIMENOrdering Facility: [facility] Address: [address] [place] [address] Performed By: #### 3 084-1, 3024-7, 00590-2, 6-3 ####[facility] [id number] [place] [id number] [place] TSH SerPl-aCncon 12-17-2024 TSH Qn 1.780 m[IU]/L Normal 0.270-4.200 [facility] Comment on above: Order Comment: Speci men Type: BLOOD SPECIMENOrdering Facility: [facility] Address: [address] [place] [address] Performed By: #### 3 084-1, 3024-7, 20365-8, 6-3 ####[facility] [id number] [place] [id number] [place] Urate SerPl-mCncon 5 Urate [Mass/Vol] 6.3 mg/dL Normal 2.5-6.6 [facility] Comment on above: Order Comment: Speci men Type: BLOOD SPECIMENOrdering Facility: [facility] Address: [address] [place] [address] Performed By: #### 3 084-1, 3024-7, 63919-4, 3016-3 ####[facility] [id number] [place] [id number] [place] VASCULAR SCREENING TESTon VASCULAR SCREENING TEST Non-Invasive Vascular Laboratory [facility] A17 Vascular Screening Bilateral/Complete Date of service/time: [...] DAVID HULL Interpreting physician: Jose Pratt MD, RPMELONIE Final CC [employer] Medical Image : [id number] D See Link below for Image Normal [facility] Vit B12 SerPl-mCncon 025 Cobalamin (Vitamin B12) [Mass/Vol] 1009 pg/mL Normal 232-1245 [facility] Comment on above: Order Comment: Speci men Type: BLOOD SPECIMEN [facility] Address: [address] [place] [address] Performed By: #### 1 989-3 #### [facility] CLIA [id number] [address] [place] [address] [place] CNPAviva 11-18-2024 CNPN Telephone (EXEPMN) -------- JOSH HUFFMAN ([id number]) 1960 F Date Time Provider Department 11/18/24 [...] Do you want to order one? Tyrese Pandey, RN 11/19/2024 7:40 AM Signed David Hull [...] for Visit: Nurse Triage Call [185] Cmt: [facility] / Prescriptions as of 11/19/2024 - celecoxib (CELEBREX) [...] Status:Closed by TYRESE PANDEY on 11/19/24 Normal [facility] CRPon 10-21-2024 C-REACTIVE PROT 3.19 mg/L High 0.0-3.0 [facility] Comment on above: Result Comment: C-Re active Protein (CRP) provides useful information for the diagnosis, therapy and monitoring of inflammatory processes and associated diseases. For the evaluation of Relative Risk for Cardiovascular Disease, a High Sensitivity CRP (HSCRP) should be ordered. Performed By: #### L 501.6710, L101.9900 #### [facility] [address] [place], [address] Erythrocyte Sed Rateon 10-21 SED RATE 5 mm/hr Normal 0-30 [facility] Comment on above: Performed By: #### L 501.6710, L101.9900 #### [facility] [address] [place], [address] Internal Medicine Office Vis iton 10-21-2024 Internal Medicine Office Visit [facility] [address] [place], [place] [address] OFFICE VISIT Date of Service: 10/21/24 MR#: [id number] Acct: [id number] Name: JOSH HUFFMAN Rep #: [id number] : 1960 Provider: Dr. Chester lockett MD Age/Sex: 64/F Location[facility] Status: Signed Intake Vital Signs 10/21/24 10:59 Weight: 223 lb BP 122/72 H Blood Pressure Location Lt brachial Position Sitting Respiration 16 Pulse 63 Pulse Source Monitor Temp 97.2 F L Temp Source Temporal Pulse Oximetry (%) 99 Oxygen Delivery Method room air Intake Visit Reasons: SEVERE HEADACHE Chief Complaint: severe head ache Lace Machine Operator Required: No Accompanied by: Self Is patient [...] mcg PO .twice week #90 tabs 06/12/24 10/21/24 Rx levothyroxine 112 mcg tablet 112 mcg [...] past year?: No PFSH Medical History (Updated 10/21/24 @ 12:55 by [...] or ur (more content not included)... Normal [facility] Internal Medicine Office Vis paulina 09-18-2024 Internal Medicine Office Visit [facility] [place] [address] [place] [address] OFFICE VISIT Date of Service: 09/18/24 MR#: [id number] Acct: [id number] Name: JOSH HUFFMAN Rep #: [id number] : 1960 Provider: Dr. Chester lockett MD Age/Sex: 64/F Location: [facility] Status: Signed Intake Vital Signs 09/18/24 10:51 Weight: 220 lb BP 128/80 H Blood Pressure Location Lt brachial Position Sitting Respiration 16 Pulse 67 Pulse Source Monitor Temp 97.0 F L Temp Source Temporal Pulse Oximetry (%) 98 Oxygen Delivery Method room air Intake Visit Reasons: 6 M FU Chief Complaint: 6m f/u Lace Machine Operator Required: No Accompanied by: Self Is patient in pain?: No Allergies No Known Allergies Allergy (Unverified 09/18/24 10:51) Medications ???Medication ???Instructions ???Recorded ???Confirmed ???Type Vit D 2000 PO 03/15/24 09/18/24 History aspirin 81 mg [...] end of June following a trip to [place]. For the most part, back to her [...] exertion, ex (more content not included)... Normal [facility] Basic Metabolic Profile (BMP )on 09-16-2024 BUN/CRE 16.9 RATIO Normal 10-20 [facility] Comment on above: Performed By: #### L 500.2500, L501.9520, L506.1000 #### [facility] [address] [place], [address] CA,Total 9.6 mg/dL Normal 8.5-10.1 [facility] Comment on above: Performed By: #### L 500.2500, L501.9520, L506.1000 #### [facility] [address] [place], [address] Chloride [Moles/Vol] 99 mmol/L Normal 98-107 [facility] Comment on above: Performed By: #### L 500.2500, L501.9520, L506.1000 #### [facility] [address] [place], [address] CO2 [Moles/Vol] 29.0 mmol/L Normal 21.0-32.0 [facility] Comment on above: Performed By: #### L 500.2500, L501.9520, L506.1000 #### [facility] [address] [place], [address] Creatinine [Mass/Vol] 0.77 mg/dL Normal 0.55-1.02 [facility] Comment on above: Result Comment: The validity of the calculated GFR GFRAA in patients over 70 years has not been determined. Clinical correlation is essential. Performed By: #### L 500.2500, L501.9520, L506.1000 #### [facility] [address] [place], [address] EST GFR - AA 96 mL/min Normal >60 [facility] Comment on above: Result Comment: Afri can [place] GFR Calc Performed By: #### L 500.2500, L501.9520, L506.1000 #### [facility] [address] [place], [address] GAP 5 Normal 5-15 [facility] Comment on above: Performed By: #### L 500.2500, L501.9520, L506.1000 #### [facility] [address] [place], [address] GFR/1.73 sq M.predicted among non-blacks MDRD (S/P/Bld) [Vol rate/Area] 80 mL/min/{1.73_m2} Normal >60 [facility] Comment on above: Result Comment: Non- GFR Calc Performed By: #### L 500.2500, L501.9520, L506.1000 #### [facility] [address] [place], [address] Glucose [Mass/Vol] 86 mg/dL Normal 74-106 [facility] Comment on above: Performed By: #### L 500.2500, L501.9520, L506.1000 #### [facility] [address] [place], [address] Potassium [Moles/Vol] 3.9 mmol/L Normal 3.5-5.1 [facility] Comment on above: Performed By: #### L 500.2500, L501.9520, L506.1000 #### [facility] [address] [place], [address] Sodium [Moles/Vol] 133 mmol/L Low 136-145 [facility] Comment on above: Performed By: #### L 500.2500, L501.9520, L506.1000 #### [facility] [address] [place], [address] Urea nitrogen [Mass/Vol] 13 mg/dL Normal 7-18 [facility] Comment on above: Performed By: #### L 500.2500, L501.9520, L506.1000 #### [facility] [address] [place], [address] Thyroid Stim Hormone (TSH)on 09-16-2024 TSH 1.100 uIU/mL Normal 0.358-3.740 [facility] Comment on above: Performed By: #### L 500.2500, L501.9520, L506.1000 #### [facility] [address] [place], [address] Vitamin D,25 Hydroxyon 09-16 Vitamin D 25-OH 79.9 ng/mL Normal [facility] Comment on above: Result Comment: Nelda min D 25(OH) Status Range Deficiency <20 ng/mL (50nmol/L) Insufficiency 20 - 30 ng/mL (50 - 75 nmol/L) Sufficiency 30 - 100 ng/mL (75 - 250 nmol/L) Toxicity >100 ng/mL (>250 nmol/L) Performed By: #### L 500.2500, L501.9520, L506.1000 #### [facility] [address] [place], [address] CNOVon 06-24-2024 CNOV Office Visit (TALON ) -------- JOSH HUFFMAN ([id number]) 1960 F Date Time Provider Department 06/24/24 10:15 AM AVI DOBBINS During your visit today, we recorded the following information about you: Avi Dobbins MD 06/24/2024 11:11 AM Signed Avi Dobbins MD Department of Orthopaedics Orthopaedics [address] [place] [address] Dept: [phone] Dept June 24, 2024 CHIEF COMPLAINT: Follow Up of the Right Knee and 3 weeks post visit right knee pain (Here for cortisone injection) HPI Patient states her pain is better since she has been taking the Celebrex. She is leaving on Monday for [place] and will need a refill before she [...] knee joint Informed Consent Consent Obtained: Verbal [place] Protocol A moment to CARE was completed. [...] COLONOSCOPY Comment: hemorrhoids, diverticulosis, advised 10-year follow-up 1987: HEART SURGERY HX Comment: at [facility], atrial septal defect repair 2002: LASIK; [...] DOBBINS [760 (more content not included)... Normal [facility] Large Joint Arthro/Inj: R kn ee jointon 06-24-2024 Avi Dobbins MD 06/24/2024 11:11 AM Large Joint Arthro/Inj: R knee joint Informed Consent Consent Obtained: Verbal [place] Protocol A moment to CARE was completed. [...] Plan of Care Visit completed when applicable [facility] CNOVon 06-03-2024 CNOV Office Visit (TALON ) -------- JOSH HUFFMAN ([id number]) 1960 F Date Time Provider Department 06/03/24 12:45 PM AVI DOBBINS During your visit today, we recorded the following information about you: Avi Dobbins MD 06/03/2024 1:54 PM Signed Avi Dobbins MD Department of Orthopaedics [facility] [address] [facility] [address] Dept: [phone] Dept June 03, 2024 CHIEF COMPLAINT: Established [...] one at time. She is leaving for [place] 2 weeks ago and will be doing some hiking. ASSESSMENT: M25.561 Acute pain of right knee (primary encounter diagnosis) PLAN: She does Konik tweaked the knee while playing with her grandchildren. Will try some strengthening and an anti-inflammatory for a few weeks. If she continues to have some troubles, would recommend a cortisone injection before her [place] trip. We can see her back on the before her trip. OBJECTIVE: Ms. Josh Huffman [...] follow-up 1988: HEART SURGERY HX Comment: at [facility], atrial septal defect repair 2002: LASIK; Right [...] 60 capsule (more content not included)... Normal [facility] CNOVon 03-25-2024 CNOV Office Visit (ORTHWS ) -------- JOSH HUFFMAN ([id number]) 1960 F Date Time Provider Department 03/25/24 1:45 PM AVI DOBBINS During your visit today, we recorded the following information about you: Avi Dobbins MD 03/25/2024 2:22 PM Signed Avi Dobbins MD Department of Orthopaedics Orthopaedics [address] [facility] [address] Dept: [phone] Dept March 25, 2024 CHIEF COMPLAINT: Post [...] Avi Dobbins MD Referring Provider: AVI DOBBINS [[id number]] Allergies As of Date: 03/25/2024 (No Known Allergies) Date Reviewed: 03/25/2024 Reviewed by: Avi Dobbins MD - Fully Assessed Reason for Visit: Post Op [174] 6 weeks 5 days post op Right knee arthroscopic [Other] Cmt: medial menisectomy lateral and PF chondroplasties Primary Visit Diagnosis:Complex tear of medial meniscus of right knee as current injury, subsequent encounter [S83.785D] Prescriptions as of 03/25/2024 - levothyroxine (SYNTHROID) [...] Status:Closed by AVI DOBBINS on 03/25/24 Normal [facility] CNOVon 02-19-2024 CNOV Office Visit (ORTHWS ) -------- JOSH HUFFMAN ([id number]) 1960 F Date Time Provider Department 02/19/24 [...] PA-C Department of Orthopaedics Orthopaedics [address] [facility] [address] Dept: [phone] Dept February 19, 2024 CHIEF COMPLAINT: Post [...] tablet by mouth two times a week. Sat AND Monday levothyroxine (SYNTHROID) 112 mcg tablet [...] allergies. This note was partially generated using Queryly voice recognition system, and there may be some incorrect words, spellings, and punctuation that were not noted in checking the note before saving. Courtney Cochran PA-C Referring Provider: AVI DOBBINS [[id number]] Allergies As of Date: 02/19/2024 (No Known Allergies) Date Reviewed: 02/19/2024 Reviewed by: Courtney Cochran PA-C - Fully Assessed Reason for Visit: Post Op [174] Follow Up [171] Primary Visit Diagnosis:Complex tear of medial meniscus of right knee as current injury, subsequent encounter [S80.021E] Other Visit Diagnosis:Primary osteoarthritis of right knee [...] MONTELONGO Mo (more content not included)... Normal [facility] ANES POSTPROC EVALon 024 ANES POSTPROC EVAL HNO ID: [id number] Author: MELLY BRITTON MD Service: Anesthesiology Author Type: Anesthesiologist Type: Anesthesia Postprocedure Evaluation Filed: 02/07/2024 13:03 Note Text: POST ANESTHESIA EVALUATION NOTE : 1960 Procedure Summary Date: 02/07/24 Room / Location: [place] OR02 / [place] Anesthesia Start: 1135 Anesthesia Stop: 1256 [...] February 07, 2024 TIME: 1:03 PM CSN: [id number] [facility] ANES PRE-OPon 02-07-2024 ANES PRE-OP HNO ID: [id number] Author: MELLY BRITTON MD Service: Anesthesiology Author Type: Anesthesiologist Type: Anesthesia Preprocedure Evaluation Filed: 02/07/2024 10:14 Note Text: ANESTHESIOLOGY DAY OF SURGERY NOTE : 1960 Procedure Information Date/Time: 02/07/24 1046 Procedure: ARTHROSCOPY KNEE MENISCECTOMY MEDIAL OR LATERAL (Right: Knee) Location: [place] OR02 / [place] Surgeons: Avi Dobbins MD Estimated body [...] February 07, 2024 TIME: 10:14 AM CSN: [id number] [facility] OPERATIVE NOon 02-07-2024 OPERATIVE NO HNO ID: [id number] Author: AVI DOBBINS MD Service: Orthopaedic Surgery Author Type: Physician Type: Operative Report Filed: 02/07/2024 12:56 Note Text: OPERATIVE/PROCEDURE REPORT LOG ID: [id number] Surgery/Procedure Date: 02/07/2024 Incision/Procedure Start Time: 12:01 PM Incision Close/Procedure End Time: 12:42 PM Surgeon(s)/Proceduralist (s) and Test Lead(s): Surgeon(s) and Role: * Avi Dobbins MD - Primary Physician Test Lead: Roxanne Easton PA-C; Courtney Cochran PA-C Procedure(s): [...] There w (more content not included)... Normal [facility] Basic metabolic 2000 panelon 01-31-2024 Anion gap [Moles/Vol] 9 mmol/L Normal 9-18 [facility] Comment on above: Order Comment: Speci men Type: BLOOD SPECIMEN Ordering Facility: [facility] Address: [address] [place] [address] Performed By: #### 2 4321-2 #### [facility] CLIA [id number] [address] [place] [address] [place] Calcium [Mass/Vol] 9.9 mg/dL Normal 8.5-10.2 [facility] Comment on above: Order Comment: Speci men Type: BLOOD SPECIMEN Ordering Facility: [facility] Address: [address] [place] [address] Performed By: #### 2 4321-2 #### [facility] CLIA [id number] [address] [place] [address] [place] Chloride [Moles/Vol] 103 mmol/L Normal 97-105 [facility] Comment on above: Order Comment: Speci men Type: BLOOD SPECIMEN Ordering Facility: [facility] Address: [address] [place] [address] Performed By: #### 2 4321-2 #### [id number] [address] [place] [address] [place] CO2 [Moles/Vol] 24 mmol/L Normal 22-30 [facility] Comment on above: Order Comment: Speci men Type: BLOOD SPECIMEN Ordering Facility: [facility] Address: [address] [place] [address] Performed By: #### 2 4321-2 #### [id number] [address] [place] [address] [place] Creatinine [Mass/Vol] 0.73 mg/dL Normal 0.58-0.96 [facility] Comment on above: Order Comment: Speci men Type: BLOOD SPECIMEN Ordering Facility: [facility] Address: [address] [place] [address] Performed By: #### 2 4321-2 #### [facility] [id number] [address] [place] [address] [place] Creatinine and Glomerular filtration rate.predicted panel (S/P/Bld) 91 mL/min/1.73m??? Normal >=60 [facility] Comment on above: Order Comment: Speci men Type: BLOOD SPECIMEN Ordering Facility: [facility] Address: [address] [place] [address] Result Comment: Andree mated Glomerular Filtration Rate [...] GFR. Performed By: #### 2 4321-2 #### [facility] CLIA [id number] [address] [place] [address] [place] Glucose [Mass/Vol] 92 mg/dL Normal 74-99 [facility] Comment on above: Order Comment: Anish wing Type: BLOOD SPECIMEN Ordering Facility: [facility] Address: [address] [place] [address] Result Comment: The [place] Diabetes Association (ADA) provides guidance for cutoff [...] Standards of Medical Care in Diabetes 2016, [place] Diabetes Association. Diabetes Care. 2016.39(Suppl 1). Performed By: #### 2 4321-2 #### [facility] CLIA [id number] [address] [place] [address] [place] Potassium [Moles/Vol] 3.6 mmol/L Low 3.7-5.1 [facility] Comment on above: Order Comment: Anish wing Type: BLOOD SPECIMEN Ordering Facility: [facility] Address: [address] [place], [place] [address] Performed By: #### 2 4321-2 #### [facility] CLIA [id number] [address] [place] [address] [place] Sodium [Moles/Vol] 136 mmol/L Normal 136-144 [facility] Comment on above: Order Comment: Speci men Type: BLOOD SPECIMEN Ordering Facility: [facility] Address: [address] [place] [address] Performed By: #### 2 4321-2 #### [facility] CLIA [id number] [address] [place] [address] [place] Urea nitrogen [Mass/Vol] 14 mg/dL Normal 7-21 [facility] Comment on above: Order Comment: Speci men Type: BLOOD SPECIMEN Ordering Facility: [facility] Address: [address] [place] [address] Performed By: #### 2 4321-2 #### [facility] [id number] [address] [place] [address] [place] HISTORY PHYSICALon HISTORY PHYSICAL HNO ID: [id number] Author: MAHSA MATIAS APRN.[employer] ATT[employer]ER Service: ? Author Type: Clinical Nurse Specialist Type: H&P Filed: 02/06/2024 15:09 Note Text: PREANESTHESIA CONSULT CLINIC TELEHEALTH VISIT Patient has been identified by name and date of : Yes This is a virtual visit using Prez[employer]om Video Visit. It require patient-provider interaction for [...] visit. Either the patient or their legal accounting representative has been informed of the risks [...] ASD (atrial septal defect) 1988 repaired at [facility] at age 27 Bilateral hip bursitis [...] during first , diagnosed ASD, repaired at [facility] after delivery Vitamin D deficiency 10/31/2019 PAST SURGICAL HISTORY Procedure Laterality Date COLONOSCOPY 07/23/2012 hemorrhoids, diverticulosis, advised 10-year follow-up HEART SURGERY HX 1988 at [facility], atrial septal defect repair LASIK Right [...] week. S (more content not included)... Normal [facility] CNCOon 01-12-2024 CNCO Letter Text Normal [facility] CNPNon 01-12-2024 CNPN Telephone (TALON) -------- JOSH HUFFMAN ([id number]) 1960 F Date Time Provider Department 01/12/24 [...] knee arthroscopic medial menisectomy with chondroplasty at [facility] on 02/07/2024. Post op appointments have been scheduled and mailed to the patient. Darline Phelps MA 01/12/2024 11:02 AM Signed Surgery has been scheduled as requested. Allergies As of Date: 01/12/2024 (No Known Allergies) Date Reviewed: 01/11/2024 Reviewed by: Kiah Paris MA - Fully Assessed Reason for Visit: Schedule Surgery [1330] Primary Visit Diagnosis:Complex tear of medial meniscus of right knee as current injury, subsequent encounter [S83.231D] Order(s):SURGICAL REQUEST - ELECTIVE (05/2020) [[id number]] Order #: [id number]: 1 Prescriptions as of 01/12/2024 - meloxicam [...] by DARLINE PHELPS on 01/12/24 [facility] CNOVon 01-11-2024 CNOV Office Visit (OTMBHT ) -------- JOSH HUFFMAN ([id number]) 1960 F Date Time Provider Department 01/11/24 3:40 PM AVI DOBBINS During your visit today, we recorded the following information about you: Avi Dobbins MD 01/17/2024 9:36 AM Signed Avi Dobbins MD Department of Orthopaedics Orthopaedic Surgery [facility] [address] [address] [facility] [address] Dept: [phone] Dept January 11, 2024 CHIEF COMPLAINT: Follow [...] THE MEDIAL MENISCUS. DEGENERATIVE CHONDRAL CHANGES DESCRIBED. High School English Teacher: CHELSEA Transcribe Date/Time: Jan 01 2024 9:23A [...] 10-year follow-up HEART SURGERY HX 1988 at [facility], atrial septal defect repair LASIK Right [...] Includes Dandeli (more content not included)... Normal [facility] Serum or plasma thyroid stim ulating hormone (TSH) measurement (units/volume)Ordered By: Nubia Sage on 01-05-2024 TSH Qn 1.20 uIU/mL 0.358-3.74 [facility] Thin prep Papanicolaou smear with manual screeningOrdered By: Nubia Sage on 01-05-2024 Thin prep Papanicolaou smear with manual screening 1.59 ng/dL 0.76-1.46 [facility] MRI KNEE WO IVCON RTon 12-29 MRI [...] THE MEDIAL MENISCUS. DEGENERATIVE CHONDRAL CHANGES DESCRIBED. High School English Teacher: PSCKathia Transcribe Date/Time: Jan 01 2024 9:23A Dictated by : DELMA OAKES MD This examination was interpreted and the report reviewed and electronically signed by: DELMA OAKES MD on Jan 01 2024 9:25AM EST [id number] Normal [facility] Laboratory - Chemistry and C hemistry - challengeOrdered By: Nubia Sage on 10-17-2023 Free T4 [Mass/Vol] 1.19 ng/dL 0.76-1.46 [facility] No Panel InformationOrdered By: Nubia Sage on 10-17-2023 Thyroid Stimulating Hormone (TSH) 3.81 uIU/mL 0.358-3.74 [facility] CT ABD/PEL WO IVCONon 2022 [facility] HIV 1+2 Ab IA Qlon 3 HIV 1 and 2 Ab IA.rapid Nom [facility] HIV 1+2 Ab+HIV1 p24 Ag IA Ql Non-Reactive Nonreactive [facility] HIV immunoassay testing algorithm interpretation (S/P/Bld) [Interp] [facility] No Panel Informationon 08-01 [facility] Basophil percentageOrdered B y: Nubia Sage on 05-19-2023 Bilirubin [Mass/Vol] 0.50 mg/dL 0.20-1.00 [facility] Comment on above: For patients on eltr ombopag therapy, use of Dimension [place] TBIL is not recommended. Chloride [Moles/Vol] 100 mmol/L 98-107 [facility] Cholesterol [Mass/Vol] 213 mg/dL <200 [facility] Comment on above: <200 mg/dL Desirable 200-240 mg/dL Borderline >240 mg/dL High Risk Glucose [Mass/Vol] 93 mg/dL 74-106 [facility] Potassium [Moles/Vol] 3.8 mmol/L 3.5-5.1 [facility] Protein [Mass/Vol] 7.4 g/dL 6.4-8.2 [facility] Sodium [Moles/Vol] 135 mmol/L 136-145 [facility] Triglyceride [Mass/Vol] 161 mg/dL <199 [facility] Comment on above: The drugs N-Acetylcy steine and Metamizole may falsely depress this assay.Serum Triglycerides Reference Interval Normal <150 mg/dL Borderline high 150 - 199 mg/dL High 200 - 499 mg/dL Very High > or = 500 mg/dL Laboratory - Chemistry and C hemistry - challengeOrdered By: Nubia Sage on 05-19-2023 ALP [Catalytic activity/Vol] 61 U/L 45-117 [facility] ALT [Catalytic activity/Vol] 28 U/L 13-56 [facility] CO2 [Moles/Vol] 28.0 mmol/L 21.0-32.0 [facility] Globulin (S) [Mass/Vol] 3.6 g/dL 2.2-4.2 [facility] Urea nitrogen/Creatinine [Mass ratio] 18.2 mg/mg 10-20 [facility] No Panel InformationOrdered By: Nubia Sage on 05-19-2023 Estimated GFR (MDRD) Amer 97 mL/min >60 [facility] Comment on above: GFR Calc Estimated GFR (MDRD) Non-Af Amer 80 mL/min >60 [facility] Comment on above: Non- GFR Calc No Panel InformationOrdered By: Edy Salcedo on 05-19-2023 Urine Microalbumin/Creatin ine Ratio 8.4 mg/g CRE <30 [facility] Serum or plasma albumin bird urement (mass/volume)Ordered By: Nubia Sage on 05-19-2023 Albumin [Mass/Vol] 3.8 g/dL 3.2-5.0 [facility] Serum or plasma albumin/glob ulin mass ratioOrdered By: Nubia Sage on 05-19-2023 Albumin/Globulin [Mass ratio] 1.1 {ratio} 0.9-2.4 [facility] Serum or plasma calcium bird urement (mass/volume)Ordered By: Nubia Sage on 05-19-2023 Calcium [Mass/Vol] 9.6 mg/dL 8.5-10.1 [facility] Serum or plasma cholesterol in HDL measurement (mass/volume)Ordered By: Nubia Sage on 05-19-2023 Cholesterol in HDL [Mass/Vol] 70 mg/dL >40 [facility] Comment on above: The drugs N-Acetylcy steine and Metamizole may falsely depress this assay. Reference Range HDL <40 mg/dL Low HDL Cholesterol HDL >or= 60 mg/dL High HDL Cholesterol Serum or plasma cholesterol in VLDL measurement (mass/volume)Ordered By: Nubia Sage on 05-19-2023 Cholesterol in VLDL [Mass/Vol] 32 mg/dL 5-40 [facility] Serum or plasma creatinine m easurement (mass/volume)Ordered By: Nubia Sage on 05-19-2023 Creatinine [Mass/Vol] 0.77 mg/dL 0.55-1.02 [facility] Comment on above: The validity of the calculated GFR & GFRAA in patients over 70 years has not been determined. Clinical correlation is essential. Serum or plasma low density lipoprotein (LDL) cholesterol measurement (mass/volume)Ordered By: Nubia Sage on 05-19-2023 Cholesterol in LDL [Mass/Vol] 111 mg/dL 0-130 [facility] Serum or plasma urea nitroge n measurement (mass/volume)Ordered By: Nubia Sage on 05-19-2023 Urea nitrogen [Mass/Vol] 14 mg/dL 7-18 [facility] Thin prep Papanicolaou smear with manual screeningOrdered By: Nubia Sage on 05-19-2023 Thin prep Papanicolaou smear with manual screening 32 U/L 15-37 [facility] Thin prep Papanicolaou smear with manual screening 7 5-15 [facility] Thin prep Papanicolaou smear with manual screeningOrdered By: Edy Salcedo on 05-19-2023 Thin prep Papanicolaou smear with manual screening 15.7 mg/L NO RANGE EST. [facility] Urine creatinine measurement (mass/volume)Ordered By: Edy Salcedo on 05-19-2023 Creatinine (U) [Mass/Vol] 187.00 mg/dL NO RANGE EST. [facility] Laboratory - Chemistry and C hemistry - challengeOrdered By: Nubia Sage on 01-26-2023 Free T4 [Mass/Vol] 1.10 ng/dL 0.76-1.46 [facility] No Panel InformationOrdered By: Nubia Sage on 01-26-2023 Thyroid Stimulating Hormone (TSH) 1.99 uIU/mL 0.358-3.74 [facility] No Panel Informationon 08-24 Thyroid Stimulating Hormone (TSH) 3.27 uIU/mL 0.358-3.74 [facility] Work Phone: No Panel Informationon 07-20 Thyroid Stimulating Hormone (TSH) 0.28 uIU/mL 0.358-3.74 [facility] Work Phone: No Panel Informationon 04-25 Thyroid Stimulating Hormone (TSH) 0.36 uIU/mL 0.358-3.74 [facility] Work Phone: CNOVon 01-06-2021 CNOV Office Visit (AGHWW1 ) -------- JOSH HUFFMAN ([id number]) 1960 F Date Time Provider Department 01/06/21 8:45 AM DEAN TEJEDA AGHWW1 During your visit today, we recorded the following information about you: Respiration Weight Height 18/minute 102.1 kg 1.765 m Dean Tejeda MD, MD 01/06/2021 8:55 AM Signed HPI: Josh Huffman [...] - ASD (atrial septal defect) repaired at [facility] at age 27 - Heel spur - HTN (hypertension) - Hypothyroid levothyroxine 75 mcg - Menopausal state - (normal spontaneous vaginal delivery) 1987, 1989, 1993 1987: 8'12; 1989 9'3; 1993: 9'1 - Pap smear for cervical cancer screening 2015 - Plantar fasciitis - Psoriasis - TIA (transient ischemic attack) 1987 during first , diagnosed ASD, repaired at [facility] after delivery PAST SURGICAL HISTORY Procedure Laterality Date - EXTENSIVE FOOT SURGERY - HEART SURGERY HX 1987 at [facility], atrial septal defect repair - LASIK [...] other day over the next 2-4 weeks) [email or web address] Slow increase in exercise and walking. Please slowly increase your time/distance every other day. This should increase over the next 4-6 weeks to your preferred distance. Referring Provider: GARY KUMAR [[id number]] Allergies As of Date: 01/06/2021 (No Known [...] Resolved Hypothyroi (more content not included)... [facility] HISTORY PHYSICALon HISTORY PHYSICAL HNO ID: [id number] Author: Leticia Brandon Service: Anesthesiology Author Type: Nurse Practitioner Type: HANDP Filed: 12/25/2020 1:24 PM Note Text: HISTORY AND PHYSICAL EXAMINATION Josh Britney Huffman 1960 SERVICE DATE: 12/25/2020 SERVICE TIME: [...] - ASD (atrial septal defect) repaired at [facility] at age 27 - Heel spur - HTN (hypertension) - Hypothyroid levothyroxine 75 mcg - Menopausal state - (normal spontaneous vaginal delivery) 1987, 1989, 1993 1987: 8'12; 1989 9'3; 1993: 9'1 - Pap smear for cervical cancer screening 2016 - Plantar fasciitis - Psoriasis - TIA (transient ischemic attack) 1988 during first , diagnosed ASD, repaired at [facility] after delivery PAST SURGICAL HISTORY Procedure Laterality Date - EXTENSIVE FOOT SURGERY - HEART SURGERY HX 1987 at [facility], atrial septal defect repair - LASIK [...] 132/67 Pulse: (more content not included)... [facility] NURSING PROGon 12-25-2020 NURSING PROG HNO ID: [id number] Author: Maryanne (Rn) GAVIN Vargas Service: ? Author Type: Registered Nurse Type: Nursing Progress Note Filed: 12/25/2020 2:38 PM Note Text: Dr tejeda spoke with patient discharge instructions reviewed with patient and both verbalize understanding [facility] OPERATIVE NOon 12-25-2020 OPERATIVE NO HNO ID: [id number] Author: Dean Tejeda MD Service: Family Practice Author Type: Physician Type: Operative Report Filed: 12/25/2020 2:12 PM Note Text: Percutaneous US guided Fasciotomy Right Foot operative note: PATIENT NAME: Josh Huffman AGE: [id number] year old DATE OF SURGERY: December 25, 2020 INFORMED CONSENT: I verify that I personally obtained Josh Huffman's consent which was signed and saved into the [facility] electronic health record. TIMEOUT: Audible timeout was [...] the procedure. PHYSICIAN: Dean Tejeda MD LOCATION: [place], [place] PROCEDURE: Percutaneous US guided fasciotomy for [...] non-weight bearing range of motion exercises on 3rd day. Patient voiced understanding of these instructions. Dean Tejeda MD 2:10 PM December 25, 2020 [facility] 12-02-2020 [facility] Office Visit (AGHWW1 ) -------- JOSH HUFFMAN ([id number]) 1960 F Date Time Provider Department 12/02/20 [...] improvement, and even worsening with treatment by impregnator helper at outside location. Has been seen by Dr. Kumar and sent here for consideration for percutaneous fasciotomy. PAIN EVALUATION 12/02/2020 0821 Pain Level: 8 Pain Location: Heel-Right Description: Aching Duration Amount of Time: 2.5 Duration Units: Years Frequency: Continuous Intervention: Exercise;Medication PAST MEDICAL HISTORY Diagnosis Date - ASD (atrial septal defect) repaired at [facility] at age 27 - Heel spur - HTN (hypertension) - Hypothyroid levothyroxine 75 mcg - Menopausal state - (normal spontaneous vaginal delivery) 1987, 1989, 1993 1987: 8'12; 1989 9'3; 1993: 9'1 - Pap smear for cervical cancer screening 2015 - Plantar fasciitis - Psoriasis - TIA (transient ischemic attack) 1987 during first , diagnosed ASD, repaired at [facility] after delivery PAST SURGICAL HISTORY Procedure Laterality Date - EXTENSIVE FOOT SURGERY - HEART SURGERY HX 1987 at [facility], atrial septal defect repair - LASIK [...] up PCUST Return for By phone with hydrological technical officer for scheduling for percutaneous fasciotomy. Part of this note has been created using voice recognition software. It may con (more content not included)... [facility] [place] 12-02-2020 [place] Telephone (AGPOB1) -------- JOSH HUFFMAN ([id number]) 1960 F Date Time Provider Department 12/02/20 [...] Encounter Status:Closed by NALLELY DIAZ on 12/02/20 [facility] CNOVon 11-26-2020 CNOV Office Visit (AGHWG1 ) -------- JOSH HUFFMAN ([id number]) 1960 F Date Time Provider Department 11/26/20 10:30 AM GARY KUMAR AGHWG1 During your visit today, we recorded the following information about you: Respiration Weight Height 16/minute 104.8 kg 1.753 m Jaylon Melissa Martin 11/26/2020 3:14 PM Signed REVIEW OF SYSTEMS: [...] treatment as included: multiple conservative treatments including laiv-ysa-zxlpubz and custom foot orthotics, supportive shoe gear, stretching exercises, boot immobilization, night splint, physical therapy as well as electromagnetic pulse treatments with little improvements of her symptoms. PMH PAST MEDICAL HISTORY Diagnosis Date - ASD (atrial septal defect) repaired at [facility] at age 27 - Heel spur - HTN (hypertension) - Hypothyroid levothyroxine 75 mcg - Menopausal state - (normal spontaneous vaginal delivery) 1987, 1989, 1993 1987: 8'12; 1989 9'3; 1993: 9'1 - Pap smear for cervical cancer screening 2016 - Plantar fasciitis - Psoriasis - TIA (transient ischemic attack) 1987 during first , diagnosed ASD, repaired at [facility] after delivery MEDS Current Outpatient Medications [...] Negative straight (more content not included)... [facility] MRI ANKLE WO IVCON RTon 02-0 MRI ANKLE WO IVCON RT Final Report DATE OF EXAM: Nov 19 2020 3:27PM GRM [id number] - MRI ANKLE WO IVCON RT [...] and is suspected to be remotely torn. High School English Teacher: CHELSEA Transcribe Date/Time: Nov 20 2020 7:54A Dictated by : ISAMAR FITZPATRICK MD This examination was interpreted and the report reviewed and electronically signed by: ISAMAR FITZPATRICK MD on Nov 20 2020 8:11AM EST [facility] CNOVon 11-05-2020 [facility] Office Visit (AGHWG1 ) -------- JOSH HUFFMAN ([id number]) 1960 F Date Time Provider Department 11/05/20 [...] to have tried multiple conservative treatments including xako-nrc-vxuxkkq and custom foot orthotics, supportive shoe gear, [...] that currently, she has been using the dxnw-ykt-majdnjb inserts and stretching exercises. Notes that the [...] - ASD (atrial septal defect) repaired at [facility] at age 27 - Heel spur - HTN (hypertension) - Hypothyroid levothyroxine 75 mcg - Menopausal state - (normal spontaneous vaginal delivery) 1987, 1989, 1993 1987: 8'12; 1989 9'3; 1993: 9'1 - Pap smear for cervical cancer screening 2016 - Plantar fasciitis - Psoriasis - TIA (transient ischemic attack) 1987 during first , diagnosed ASD, repaired at [facility] after delivery MEDS Current Outpatient Medications [...] 4-5 cigarettes/ (more content not included)... [facility] Clinical Lists Update: Prelo ad Extendedon 05-02-2019 Tobacco smoking status DCIS Tobacco smoking status DCIS [facility] Work Phone: Clinical Summary: HMSPatient IDon 05-02-2019 OOP [facility] Work Phone: Office Visit: New - visi t with practice, Rm: 1105-02-2019 NEGATED: Highlighted rowMRI (magnetic resonance imaging) history of the right foot on 03/2019 at Outside Facility [facility] Work Phone: Clinical Summary: Scanned Hi story Summaryon 05-01-2019 adl form etoh alcohol performance liquor [facility] Work Phone: Beta HCG ( test) Ql (U) 2 or more times per year [facility] Work Phone: comments about allergies None [facility] Work Phone: consumes three or more drinks of alcohol (beer, wine, liquor) daily or almost daily 2 drinks per day [facility] Work Phone: Data entered by patient exercise frequency 3 days per week [facility] Work Phone: Data entered by patient exercise type swimming [facility] Work Phone: data entered by patient, alcohol (ethanol or ETOH) use Yes [facility] Work Phone: Data entered by patient, allergy list I don't have any Drug AllergiesI don't have any Environmental AllergiesI don't have any Food Allergies [facility] Work Phone: data entered by patient, drug (of abuse) use No [facility] Work Phone: data entered by patient, Employer Name employed [facility] Work Phone: data entered by patient, exercise history Yes [facility] Work Phone: data entered by patient, father's medical history CancerHeart diseaseHigh blood pressure [facility] Work Phone: Data entered by patient, history of past surgeries Foot surgeryHeart cathTonsillectomy [facility] Work Phone: Data entered by patient, medication list aspirin-81 tl-5-ccojmkvhlizvgyw-10 - 12.5 gu-2-foaymyxrygwwzkv succinate-100 pi-5-pdofdduotmchzlscwu- 75 Tot-0-Pwiesuwka-33 ha-9-Grpwxesbnwrhsytk-10 00 ra-9-Nkslednlhb-220 mg-1-Twice Daily [facility] Work Phone: data entered by patient, mother's medical history ArthritisHeart diseaseHigh blood pressure [facility] Work Phone: data entered by patient, past medical history High blood pressureHypothyroidism [facility] Work Phone: data entered by patient, social history, current smoker former smoker [facility] Work Phone: data entered by patient, social history, former smoker 1985 [facility] Work Phone: data entered by patient, social history, marital status [facility] Work Phone: Exercise vein comment Was walking an average of 4 miles per day (maybe 4 days a week) at a medium pace until around August 2018 when my right foot began to hurt. [facility] Work Phone: father of patient is alive or [facility] Work Phone: father's medical history, comments prostate cancer spread to bone cancer. in 1998 (77 years old) of cancer complications [facility] Work Phone: Housing Type: apartment, house, usp, trailer, none house [facility] Work Phone: housing unit size (asthma environmental history, housing) (from single family to don't know) 2 floors [facility] Work Phone: medical history of patient's brother(s) AlcoholismObesity [facility] Work Phone: medical history of patient's brother(s), comments 59 years old. Is in a custodial with sever alcohol dementia. [facility] Work Phone: medical history of patient's sister CancerMelanoma [facility] Work Phone: medical history of patient's sister, comments Malignant melanoma removed in 1992. Cancer free since then. 61 years old. [facility] Work Phone: mother of patient is alive or Alive [facility] Work Phone: mother's medical history, comments Heart attack in 1997. Pacemaker inserted 2016. She is 89 years old [facility] Work Phone: Number of dependent children No [facility] Work Phone: Other housed specified Second Floor of the house was where the three son's of ours grew up. We pretty much live on just the main floor now. [facility] Work Phone: Web entered surgical history comments Splenectomy (1969). Open heart surgery to close an atrial septal defect (1987). Laser surgery on greater and lesser saphenous veins (2017). [facility] Work Phone: Vital Signs Date Time Vital Sign Value Performing Clinician Facility 03-21-2025 09:120400 Body height 175.[address] Chester Valentine MD Work Phone: [facility] 03-21-2025 09:120400 Body mass index (BMI) [Ratio] 32.5 kg/m2 Dr. Chester Valentine MD Work Phone: [facility] 03-21-2025 09:120400 Body temperature 98.6 [degF] Dr. Chester Valentine MD Work Phone: [facility] 03-21-2025 09:12-0400 Body weight 99.[address] Chester Valentine MD Work Phone: [facility] 03-21-2025 09:12-0400 Diastolic blood pressure 72 mm[Hg] Dr. Chester Valentine MD Work Phone: [facility] 03-21-2025 09:12-0400 Heart rate 60 /min Dr. Chester Valentine MD Work Phone: [facility] 03-21-2025 09:12-0400 Respiratory rate 16 /min Dr. Chestre Valentine MD Work Phone: [facility] 03-21-2025 09:12-0400 SaO2% (BldA) [Mass fraction] 97 % Dr. Chester Valentine MD Work Phone: [facility] 03-21-2025 09:12-0400 Systolic blood pressure 122 mm[Hg] Dr. Chester Valentine MD Work Phone: [facility] 12-17-2024 13:23-0500 Body height 175.3 cm David Hull MD Work Phone: [facility] 12-17-2024 13:23-0500 Body mass index (BMI) [Ratio] 32.44 kg/m2 David Hull MD Work Phone: [facility] 12-17-2024 13:23-0500 Body temperature 98.2 [degF] David Hull MD Work Phone: [facility] 12-17-2024 13:23-0500 Body weight 99.7 kg David Hull MD Work Phone: [facility] 12-17-2024 13:23-0500 Diastolic blood pressure 76 mm[Hg] David Hull MD Work Phone: [facility] 12-17-2024 13:23-0500 Heart rate 66 /min David Hull MD Work Phone: [facility] 12-17-2024 13:23-0500 Systolic blood pressure 112 mm[Hg] David Hull MD Work Phone: [facility] 12-17-2024 08:18-0500 Body height 175.3 cm Leon Christiano DO Work Phone: [facility] 12-17-2024 08:18-0500 Body mass index (BMI) [Ratio] 32.44 kg/m2 Leon Christiano DO Work Phone: [facility] 12-17-2024 08:18-0500 Body weight 99.66 kg Leon Christiano DO Work Phone: [facility] 01-24-2024 09:27-0400 Body height 175.3 cm [facility] 01-24-2024 09:27-0400 Body weight 99.34 kg [facility] 01-24-2024 09:27-0400 Respiratory rate 16 /min [facility] 09-11-2023 12:59-0500 Body height 175.3 cm Ashley Abarca MD Work Phone: [facility] 09-11-2023 12:59-0500 Body temperature 96.4 [degF] Ashley Abarca MD Work Phone: [facility] 09-11-2023 12:59-0500 Body weight 99.79 kg Ashley Abarca MD Work Phone: [facility] 09-11-2023 12:59-0500 Diastolic blood pressure 87 mm[Hg] Ashley Abarca MD Work Phone: [facility] 09-11-2023 12:59-0500 Heart rate 65 /min Ashley Abarca MD Work Phone: [facility] 09-11-2023 12:59-0500 Respiratory rate 12 /min Ashley Abarca MD Work Phone: [facility] 11-27-2023 12:59-0500 Systolic blood pressure 166 mm[Hg] Ashley Abarca MD Work Phone: [facility] 08-01-2023 10:05-0400 Diastolic blood pressure 85 mm[Hg] Allan Partida MD Work Phone: [facility] 08-01-2023 10:05-0400 Heart rate 80 /min Allan Partida MD Work Phone: [facility] 08-01-2023 10:05-0400 Systolic blood pressure 128 mm[Hg] Allan Partida MD Work Phone: [facility] 08-01-2023 09:57-0400 Body height 175.3 cm Allan Partida MD Work Phone: [facility] 08-01-2023 09:57-0400 Body temperature 97.7 [degF] Allan Partida MD Work Phone: [facility] 08-01-2023 09:57-0400 Body weight 98.1 kg Allan Partida MD Work Phone: [facility] 08-01-2023 08:26-0400 Body height 175.3 cm Leon Alvarado DO Work Phone: [facility] 08-01-2023 08:26-0400 Body weight 98.07 kg Leon Alvarado DO Work Phone: [facility] NEGATED: Highlighted [id number] 09:35-0400 BMI (Body Mass Index) 33.2 kg/m2 Nubia Jeter LPN [facility] Work Phone: NEGATED: Highlighted [id number] 09:35-0400 Body weight 101.61 kg Nubia Jeter LPN [facility] Work Phone: NEGATED: Highlighted [id number] 09:35-0400 Body weight 102 kg Nubia Jeter LPN [facility] Work Phone: NEGATED: Highlighted [id number] 09:35-0400 BP Diastolic 89 mm[Hg] Nubia Jeter LPN [facility] Work Phone: NEGATED: Highlighted [id number] 09:35-0400 BP Diastolic 99 mm[Hg] Nubia Jeter LPN [facility] Work Phone: NEGATED: Highlighted [id number] 09:35-0400 BP Systolic 161 mm[Hg] Nubia Jeter SOFTWARE SECURITY ARCHITECT [facility] Work Phone: NEGATED: Highlighted [id number] 09:35-0400 BP Systolic 155 mm[Hg] Nubia Jeter LPN [facility] Work Phone: NEGATED: Highlighted [id number] 09:35-0400 Heart rate 2+ Nubia Jeter SOFTWARE SECURITY ARCHITECT [facility] Work Phone: NEGATED: Highlighted [id number] 09:35-0400 Height 175.26 cm Nubia Jeter SOFTWARE SECURITY ARCHITECT [facility] Work Phone: NEGATED: Highlighted [id number] 09:35-0400 Height 175 cm uNbia Jeter SOFTWARE SECURITY ARCHITECT [facility] Work Phone: NEGATED: Highlighted [id number] 09:35-0400 Pulse (Heart Rate) 54 /min Nubia Jeter SOFTWARE SECURITY ARCHITECT [facility] Work Phone: Encounters Encounter Date Encounter Type Care Provider Facility Start: 03-24-[address] Chester Valentine MD -[facility] Work Phone: Start: 03-21-2025 End: 03-21-[address] Chester Valentine MD -[facility] Work Phone: Start: 03-21-2025 End: 03-21-[address] Chester Valentine MD [facility] Start: 03-21-2025 End: 03-21-[address] Chester Valentine MD Work Phone: [facility] Work Phone: Start: 03-19-2025 End: 03-19-[address] Chester Valentine MD -[facility] Work Phone: Start: 03-19-2025 End: 03-19-2025 ambulatory Chester Valentine Facility:[facility] Start: 12-17-2024 End: 12-17-2024 Subsequent hospital visit by physician Ct 2 Main Qb (I-Stat) Radiology Comment on above: Encounter for screen ing for cardiovascular disorders [Z13.6] Start: 12-17-2024 End: 12-17-2024 Patient encounter procedure Personal Injury Paralegal Work Phone: Internal Medicine Comment on above: [...] encounter status David Hull MD Work Phone: [facility] Work Phone: Start: 12-17-2024 End: 12-17-2024 Subsequent hospital visit by physician Bone Density Main A21 2 Radiology Comment on above: Routine general medi deirdre examination at a health care facility [Z00.00] Start: 12-17-2024 Encounter for genera l adult medical examination without abnormal findings COURTNEY COCHRAN [facility] Start: 12-17-2024 Encounter for other specified special examinations COURTNEY COCHRAN [facility] Start: 12-17-2024 End: 12-17-2024 ambulatory Personal Injury Paralegal Work Phone: Internal Medicine Start: 11-18-2024 End: 11-19-2024 Telephone encounter David Hull MD Work Phone: Internal Medicine Comment on above: Nurse Triage Call ([facility] 12/17) Start: 11-14-2024 End: 11-15-2024 Refill Courtney Cochran PA-C Work Phone: Orthopaedics Comment on above: Refill Request Start: 10-21-2024 End: 10-21-2024 ambulatory [facility] Start: 10-21-2024 End: 10-21-[address] [facility] Facility:[facility] Start: 09-18-2024 End: 09-18-2024 ambulatory [facility] Start: 09-16-2024 End: 09-16-2024 ambulatory [facility] Facility:[facility] Start: 09-01-2024 End: 09-02-2024 Refill Avi Dobbins MD Work Phone: Orthopaedics Comment on above: Refill Request Start: 06-24-2024 End: 06-24-2024 ambulatory AVI DOBBINS Facility:[facility] Start: 06-24-2024 End: 06-24-2024 Patient encounter procedure Avi Dobbins MD Work Phone: Orthopaedics Comment on above: Acute pain of right knee (Primary Dx); Primary osteoarthritis of right knee Start: 06-03-2024 End: 06-03-2024 ambulatory NUBIA SAGE Facility:[facility] Start: 06-03-2024 End: 06-03-2024 Patient encounter procedure Avi Dobbins MD Work Phone: Orthopaedics Comment on above: Acute pain of right knee (Primary Dx) Start: 03-25-2024 End: 03-25-2024 ambulatory AVI DOBBINS Facility:[facility] Start: 03-25-2024 End: 03-25-2024 Patient encounter procedure Avi Dobbins MD Work Phone: Orthopaedics Comment on above: Complex tear of medi al meniscus of right knee as current injury, subsequent encounter (Primary Dx) Start: 03-15-[address] Britney Valentine MD Work Phone: [facility] Start: 02-19-2024 End: 02-19-2024 ambulatory COURTNEY COCHRAN Facility:[facility] Start: 02-19-2024 End: 02-19-2024 Patient encounter procedure Courtney Cochran PA-C Work Phone: Orthopaedics Comment on above: Complex tear of medi al meniscus of right knee as current injury, subsequent encounter (Primary Dx); Primary osteoarthritis of right knee Start: 02-07-2024 End: 02-07-2024 ambulatory AVI DOBBINS Facility:[facility] Start: 01-31-2024 End: 01-31-2024 ambulatory NUBIA SAGE Facility:[facility] Start: 01-24-2024 End: 01-24-2024 Admission to establishment [facility] Start: 01-24-2024 End: 01-24-2024 ambulatory NUBIA SAGE Pre Anesthesia Comment on above: Pre-op evaluation (P rimary Dx); Primary hypertension; Hypothyroidism, unspecified type; Ascending aorta dilation (4.3 cm on non-contrast CT 10/2019, and on CT angiogram 07/2023); Obesity, Class I, BMI 30-34.9; ASD (atrial septal defect); TIA (transient ischemic attack); Prediabetes; Hypercholesterolemia Start: 01-24-2024 Encounter for other preprocedural examination COURTNEY COCHRAN [facility] Start: 01-24-2024 End: 01-24-2024 Preprocedural examination done [facility] Work Phone: Start: 01-23-2024 ambulatory Avi Dobbins MD Work Phone: Orthopaedic Surgery [facility] Comment on above: Insurance did not pr e-approve my knee scope Start: 01-11-2024 End: 01-11-2024 ambulatory AVI DOBBINS Facility:[facility] Start: 01-11-2024 End: 01-11-2024 Patient encounter procedure Avi Dobbins MD Work Phone: Orthopaedic Surgery [facility] Comment on above: Complex tear of medi al meniscus of right knee as current injury, subsequent encounter (Primary Dx); Primary osteoarthritis of right knee Start: 01-05-2024 End: 01-05-2024 ambulatory [facility] Work Phone: Start: 01-05-2024 End: 01-05-2024 Patient encounter procedure [facility] Start: 12-30-2023 End: 12-30-2023 ambulatory NUBIA ALDANA ALONA Facility:[facility] Start: 12-30-2023 End: 12-30-2023 Subsequent hospital visit [...] right knee Start: 10-17-2023 End: 10-17-2023 ambulatory [facility] Work Phone: Start: 10-17-2023 End: 10-17-2023 Patient encounter procedure [facility] Start: 09-11-2023 End: 09-11-2023 Patient encounter procedure Ashley Abarca MD Work Phone: General Surgery Comment on above: Ventral hernia witho ut obstruction or gangrene Start: 09-08-2023 End: 09-08-2023 Subsequent hospital visit by physician [facility] (I-Stat) Work Phone: Cat Scan Comment on above: Ventral hernia witho ut obstruction or gangrene [K43.9] Start: 08-29-2023 Orders Only Roxi Baig APRN.CASING RUNNER Work Phone: General Surgery Comment on above: Ventral hernia witho ut obstruction or gangrene (Primary Dx) Appointment (Imaging Needed Prior to Appointment/) Start: 08-01-2023 End: 08-01-2023 Subsequent hospital visit by physician Ct 2 Main Qb (I-Stat) Radiology Comment on above: Ascending aorta dila tion (HCC) [I77.810] Start: 08-01-2023 End: 08-01-2023 ambulatory Personal Injury Paralegal Work Phone: [facility] Start: 08-01-2023 End: 08-01-2023 Nutrition therapy Personal Injury Paralegal Work Phone: Internal Medicine Comment on above: Nutrition Assessment ; Patient Education Start: 08-01-2023 End: 08-01-2023 Subsequent hospital visit by physician Orth General Xray A21 Radiology Comment on above: Primary osteoarthrit is of right knee [M17.11] Start: 08-01-2023 End: 08-01-2023 Subsequent hospital visit by physician Clinic Imaging Mammo Main Mammography Start: 08-01-2023 End: 08-01-2023 Patient encounter status Allan Partida MD Work Phone: [facility] Start: 08-01-2023 End: 08-01-2023 Hearing test abnormal Claudia Kris AUD Work Phone: [facility] Work Phone: Start: 08-01-2023 End: 08-01-2023 Patient encounter procedure Claudia Kris AUD Work Phone: Audiology Comment on above: [...] Comment on above: Nurse Triage Call ( [employer]) Start: 05-19-2023 End: 05-19-2023 ambulatory [facility] Work Phone: Start: 05-19-2023 End: 05-19-2023 Patient encounter procedure [facility] Start: 01-26-2023 End: 01-26-2023 Patient encounter procedure [facility] Start: 08-24-2022 End: 08-24-2022 ambulatory [facility] Work Phone: Start: 08-24-2022 End: 08-24-2022 Patient encounter procedure [facility] Start: 07-20-2022 End: 07-20-2022 ambulatory [facility] Work Phone: Start: 07-20-2022 End: 07-20-2022 Patient encounter procedure [facility] Start: 04-25-2022 End: 04-25-2022 Patient encounter procedure [facility] Start: 01-11-2021 End: 01-11-2021 Patient encounter procedure [facility] Start: 12-21-2020 End: 12-21-2020 Patient encounter procedure [facility] Start: 05-02-2019 End: 05-02-2019 Patient encounter procedure Spencer Rodriguez MD Work Phone: [facility] Work Phone: Procedures Date Procedure Procedure Detail Performing Clinician Start: 03-24-2025 X-ray of cervical spine Dr. Chester Valentine MD Work Phone: Start: 12-17-2024 PFIZER-BIONTECH COVI D-19 VACCINE AGE 12+ YR (COMIRNATY) David Hull MD Work Phone: Start: 12-17-2024 KATE SCREENING [facility] David uHll MD Work Phone: Start: 12-17-2024 Unlisted computed tomography procedure David Hull MD Work Phone: Start: 12-17-2024 Lipid 1996 panel - S celina or Plasma Leon Christiano DO Work Phone: Start: 06-24-2024 Arthrocentesis aspir [...] Author Start: 12-17-2029 Lipid panel Lipid Screening [facility] Start: 08-01-2028 Lipid 1996 panel - Serum or Plasma Lipid Screening [facility] Start: 08-01-2028 Lipid panel Lipid Screening [facility] Start: 12-18-2027 Diabetes Screening Diabetes Screening [facility] Start: 01-30-2027 Diabetes Screening Diabetes Screening [facility] Start: 10-17-2026 Screening for malignant neoplasm of colon [facility] Start: 08-01-2026 Diabetes Screening Diabetes Screening [facility] Start: 05-19-2026 Urine microalbumin profile DTaP,Tdap,Td Vaccine (2 - Td or Tdap) [facility] Start: 12-17-2025 BP Controlled (<130/80) BP Controlled (<130/80) [facility] Start: 06-19-2025 Covid-19 Vaccine () Covid-19 Vaccine () [facility] Start: 03-21-2025 Patient referral [facility] Work Phone: Start: 12-17-2024 End: 12-17-2024 Patient encounter procedure 12/17/2024 1:30 PM EST Appointment Radiology [address] [address] Exec [facility] Radiology Comment on above: Exec Hold Bill Start: 12-17-2024 Subsequent hospital visit by physician 12/17/2024 12:04 PM EST Hospital Encounter Radiology [address] [address] Encounter for screening for cardiovascular disorders [Z13.6] [...] AM EST Nurse Visit Internal Medicine [address] [address] Main, Bp [facility] Intm Preventive [address] [place] [address] [facility] Internal Medicine Comment on above: Exec Hold Bill Start: 12-17-2024 End: 12-17-2024 ambulatory 12/17/2024 7:45 AM EST Results Only [facility] [address] [address] Exec Hold Bill [facility] Comment on above: Exec Hold Bill Start: 12-17-2024 End: 12-17-2024 Patient encounter procedure Internal Medicine Comment on above: chapis Exec Hold Bill [place] Karissa Arrived Start: 10-31-2024 Lipid 1996 panel - Serum or Plasma Lipid Screening [facility] Start: 10-16-2024 Advance Directive Discussion Advance Directive Discussion [facility] Start: 06-24-2024 End: 06-24-2024 Patient encounter procedure 06/24/2024 10:15 AM EDT Office Visit Orthopaedics [address] [place] [address] Avi Dobbins MD [address] [place] [id number] follow up re: cortisone injectio Orthopaedics Comment on above: follow up re: cortisone injectio Start: 06-16-2024 Covid-19 Vaccine () Covid-19 Vaccine () [facility] Start: 06-16-2024 Covid-19 Vaccine () Covid-19 Vaccine () [facility] Start: 06-16-2024 Influenza vaccination Influenza Vaccine (#1) [facility] Start: 03-25-2024 End: 03-25-2024 Patient encounter procedure 03/25/2024 1:45 PM EDT Office Visit Orthopaedics [address] [place], [place] [id number] Avi Dobbins MD [address] [place], [place] [phone] Post op right knee arthroscopic medial menisectomy [...] attack) Prediabetes Hypercholesterolemia Expected: 01/23/2024, Expires: 04/23/2024 [facility] Work Phone: Comment on above: Expected: 01/23/2024, Expires: Start: 12-02-2023 Covid-19 Vaccine () Covid-19 Vaccine () [facility] Start: 10-16-2023 Advance Directive Discussion Advance Directive Discussion [facility] Start: 10-16-2023 Behavioral Health Screening Behavioral Health Screening [facility] Start: 10-16-2023 Depression Assessment Depression Assessment [facility] Start: 06-16-2023 Covid-19 Vaccine ( season) Covid-19 Vaccine () [facility] Start: 06-16-2023 Covid-19 Vaccine () Covid-19 Vaccine () [facility] Start: 06-16-2023 Influenza vaccination Influenza Vaccine (#1) [facility] Start: 2023 Advance Directive Discussion Advance Directive Discussion [facility] Start: 2023 Bone Density Screening Bone Density Screening [facility] Start: 2023 Pneumococcal Vaccine: 65+ (3 - PPSV23 or PCV20) Pneumococcal Vaccine: 65+ (3 - PPSV23 or PCV20) [facility] Start: 10-31-2022 Diabetes Screening Diabetes Screening [facility] Start: 10-16-2022 Depression Assessment Depression Assessment [facility] Start: 07-23-2022 Colonoscopy Colonoscopy [facility] Start: 07-23-2022 Colorectal Cancer Screening Colorectal Cancer Screening [facility] Start: 10-31-2020 Mammography Mammogram Screening [facility] Start: 10-31-2020 Screening for malignant neoplasm of breast Mammogram Screening [facility] Start: 05-02-2019 End: 05-02-2019 Appointment Appointment [facility] Work Phone: Start: 2018 RSV Vaccine (1 - 1-dose 60+ series) RSV Vaccine (1 - 1-dose 60+ series) [facility] Start: 07-23-2013 Colonoscopy Colonoscopy [facility] Start: 07-23-2013 Colorectal Cancer Screening Colorectal Cancer Screening [facility] Start: 07-23-2013 Screening for malignant neoplasm of colon Colonoscopy [facility] Start: 2008 Shingrix Vaccine (1 of 2) Shingrix Vaccine (1 of 2) [facility] Start: 2003 Cologuard (FIT-DNA) Cologuard (FIT-DNA) [facility] Start: [address] COLONOGRAPHY [facility] Start: 2003 Fecal Occult Blood Fecal Occult Blood [facility] Start: 2003 Screening for malignant neoplasm of colon [facility] Start: 2003 SIGMOIDOSCOPY SIGMOIDOSCOPY [facility] Start: 1976 Annual PCP Team Chronic Disease Visit Annual PCP Team Chronic Disease Visit [facility] Start: 1976 Anxiety Screening Anxiety Screening [facility] Start: 1976 BP Controlled (<130/80) BP Controlled (<130/80) [facility] Start: 1976 Depression Screening Depression Screening [facility] Start: 1976 HIV Screening HIV Screening [facility] BD DXA TRABECULAR JESSICA NE SCORE (TBS) BD DXA TRABECULAR BONE SCORE (TBS) Radiology Routine Routine general medical examination at a health care facility 12/17/2024 9:32 AM EST [facility] COLOGUARD COLOGUARD Lab Ro utine Colon cancer screening Ordered: 08/01/2023 [facility] Work Phone: Comment on above: Ordered: 08/01/2023 Comprehensive metabolic 2000 panel - Serum or Plasma [facility] End: 09-27-2024 Ct abdomen & pelvis w/o contrast material CT ABD/PEL WO IVCON Radiology Routine Ventral hernia without obstruction or gangrene 1 Occurrences starting 08/29/2023 until 09/27/2024 [facility] Work Phone: Comment on above: 1 Occurrences starting 08/29/2023 until 09/27/2024 End: 08-24-2024 Ct angiography chest w/contrast/noncontrast CTA CHEST (GATED) W IVCON Radiology Routine Ascending aorta dilation (HCC) 1 Occurrences starting 07/26/2023 until 08/24/2024 [facility] Work Phone: Comment on above: 1 Occurrences starting 07/26/2023 until 08/24/2024 Ct angiography chest w/contrast/noncontrast CTA CHEST (GATED) W IVCON Radiology Routine Ascending aorta dilation (HCC) 08/01/2023 4:21 PM EDT [facility] Work Phone: DXA Skeletal system.axial Views for bone density DXA-AXIAL SKELETON Radiology Routine Routine general medical examination at a health care facility 12/17/2024 9:32 AM EST [facility] Work Phone: End: 08-01-2023 KATE SCREENING W FREECULTR [facility] Work Phone: Comment on above: ONCE for 1 Occurrences starting 08/01/20 23 until 08/01/2023 End: 01-16-2025 MR Knee - right WO contrast MRI KNEE WO IVCON RIGHT Radiology Routine Tear of medial meniscus of right knee, current, unspecified tear type, subsequent encounter Primary osteoarthritis of right knee 1 Occurrences starting 12/18/2023 until 01/16/2025 [facility] Work Phone: Comment on above: 1 Occurrences starting 12/18/2023 until 01/16/2025 MR Knee - right WO contrast MRI KNEE WO IVCON RIGHT Radiology Routine Tear of medial meniscus of right knee, current, unspecified tear type, subsequent encounter Primary osteoarthritis of right knee 12/30/2023 1:26 PM EDT [facility] Work Phone: Patient Education \cps-sql1\CPS_ PtEducation\ht n.pdf [facility] Work Phone: Patient referral [facility] Work Phone: XR Cervical spine 2 or 3 Views [facility] Immunizations Immunization Date Immunization Notes Care Provider [facility] 12-17-2024 COVID-19 vaccine, ag e 12+ yr (PFIZER-BIONTECH COMIRNATY) David Hull MD Work Phone: [facility] 12-17-2024 influenza, high dose seasonal, preservative-free David Hull MD Work Phone: [facility] 08-01-2023 COVID-19 vaccine, ag e 12+ yr, 2022- season (PFIZER-BIONTECH) Claudia BORGES Work Phone: [facility] 08-01-2023 pneumococcal (PCV20) vaccine, 20 valent (PREVNAR 20) Claudia BORGES Work Phone: [facility] 08-01-2023 respiratory syncytia l virus (RSV) vaccine, bivalent (ABRYSVO) Claudia Kris AUD Work Phone: [facility] 08-01-2023 pneumococcal Conjuga te, unspecified formulation Allan Partida MD Work Phone: [facility] Work Phone: 07-27-2023 influenza, injectabl e, quadrivalent, contains preservative Leon Christiano DO Work Phone: [facility] Work Phone: 07-27-2023 influenza virus vacc ine, unspecified formulation Avi Dobbins MD Work Phone: [facility] 07-13-2020 zoster vaccine recombinant Leon Christiano DO Work Phone: [facility] 12-24-2019 zoster vaccine recombinant Leon Christiano DO Work Phone: [facility] 12-17-2019 meningococcal B vacc ine, fully recombinant Leon Christiano DO Work Phone: [facility] 12-17-2019 meningococcal oligosaccharide (groups A, C, Y and W-135) diphtheria toxoid conjugate vaccine (MCV4O) Leon Mathiskop DO Work Phone: [facility] 07-16-2019 influenza, injectabl e, quadrivalent, contains preservative Allan Partida MD Work Phone: [facility] 07-16-2019 influenza virus vacc ine, unspecified formulation Allan Partida MD Work Phone: [facility] 05-19-2016 pneumococcal conjuga te vaccine, 13 valent Allan Partida MD Work Phone: [facility] 05-19-2016 tetanus toxoid, redu benny diphtheria toxoid, and acellular pertussis vaccine, adsorbed Allan Partida MD Work Phone: [facility] 10-21-2009 novel influenza-H1N1 -09, preservative-free, injectable Leon Christiano DO Work Phone: [facility] 10-05-1999 pneumococcal polysaccharide vaccine, 23 jessica Partida MD Work Phone: [facility] Payers Date Payer Category Payer Self-pay [id number] 2024 Self-pay [id number] 2020 Private Health Insurance KARIAN العراقي OAP [id number] 2020-Present [phone] [facility] [id number] [place] [id number] Open Access [id number] 2020 Private Health Insurance [id number] Unknown [id number] Unknown [id number] Unknown [id number] Unknown [id number] Unknown [id number] Unknown [id number] Unknown [id number] Social History Date Type Detail Facility Start: 05-02-2019 End: 05-02-2019 Assertion Unknown if ever smoked [facility] Work Phone: Start: 1960 Sex Assigned At Female W [facility] Start: 10-31-2019 End: 03-15-2024 Tobacco smoking status NHIS Ex-smoker [facility] Work Phone: Start: 10-16-1975 End: 10-16-1979 History of tobacco use Current smoker [facility] Work Phone: Start: 10-16-1975 End: 10-16-1979 History of tobacco use Cigarette Smoker [facility] Work Phone: Start: 10-31-2019 End: 08-01-2023 Cigarettes smoked current (pack per day) - Reported 0.3 [facility] Start: 10-31-2019 End: 06-24-2024 Tobacco use and exposure Smokeless tobacco non-user [facility] Work Phone: Start: 12-08-2021 End: 01-11-2024 Alcohol intake Current drinker of alcohol (finding) [facility] Start: 12-08-2021 End: 08-01-2023 Tobacco use panel [facility] Adult Depression Screening Assessment 0 [facility] Start: 10-31-2019 Tobacco Comment 4-5 cigarettes/day C [facility] Start: 10-31-2019 Alcohol Comment ha armasly [facility] Start: 11-04-2020 Gender identity Identifies as female gender (finding) [facility] Start: 11-04-2020 Sexual orientation Heterosexual (fin ding) [facility] Start: 08-01-2023 Alcohol Comment 2 glasses of s cotch nightly [facility] Start: 01-24-2024 End: 12-17-2024 Alcohol intake Ex-drinker (finding) [facility] Start: 01-24-2024 Alcohol Comment currently not drinki [facility] NEGATED: Highlighted rowStart: 05-02-2019 End: 05-02-2019 Employment detail Employment detail [facility] Work Phone: Clinical Notes 11-05-2020 to 03-21-2025 Note Date & Type Note Facility 03-21-2025 Evaluation note Diagnosis Onset Date [facility] maintenance acute J 2024 8:53am Hyperlipidemia chronic March 21, 2025 8:53am Hypertension chronic March 21 8:53am Hypothyroidism chronic March 21, 2025 8:53am Localized swelling on left hand chronic March 21, 2025 8:53am Neck pain chronic March 21, 2025 8:53am [facility] Work Phone: [phone] 171-933803-12-2025 NoteHNO ID: [id number] Author: TEJAS GARRIDO Motor Tester Service: ? Author Type: Motor Tester Type: Progress Notes Filed: 12/25/2024 10:33 Note [...] Clements Date: December 17, 2024 CC Number: [id number] [facility] [...] during first , diagnosed ASD, repaired at [facility] after delivery). 9. Atrial septal defect (1987; repaired at [facility] at age 27). 10. Hypertension (2012). 11. Hypothyroidism (2017). Current dose of levothyroxine [...] comparison of standards for age and gender. 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 Anything beyond ten minutes [...] 6-12 weeks to prev (more content not included)...[facility]03-12-2025 History of Present illness Narrative* Tejas Garrido, Motor Tester - 12/25/2024 10:33 AM EDT [facility] Summary The information included in this report is a comprehensive overview of the components of fitness necessary to maintain a higher quality of life. Upon completion of the fitness evaluation, this information has been customized to each individual in order for the evaluated individual to understand andutilize the major components of fitness, as well as the proper guidelines for exercising in a safe and effective manner. Each program is compiled as specified to individual needs and health goals. Patient Name: Josh Clements Date: December 17, 2024 [facility] Number: [id number] Patients Health [facility] Patients Fitness [facility] [...] cardiovascular events. Lp(a) levels virtually doesn't change throughoutyour lifetime. There is not much that you can do to lower your Lp(a) levels and there is no prospective data to show that lowering Lp(a) levels results in lower risk for future cardiovascular events.The conservative approach is to get your LDL [...] during first , diagnosed ASD, repaired at [facility] after delivery). 9. Atrial septal defect (1987; repaired at [facility] at age 27). 10. Hypertension (2013). 11. Hypothyroidism (2017). Current dose of levothyroxine is appropriate. 12. Elevated ferritin level with normal iron studies. 13. Elevated ultrasensitive CRP (5.1). This could be due to excess weight. However, CRP is a markerfor inflammation and has been recognized as an independent risk factor for cardiovascular events. Aspirin has been shown to prevent future vascular events in those with elevated CRP levels. In addition, weight loss, aerobic exercise, and statin medications (e.g. Lipitor, Zocor, Pravachol) have beenshown to reduce ultrasensitive CRP levels. 14. Postmenopause. [...] comparison of standards for age and gender. 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 Anything beyond ten minutes of continuous cardiovascular exercise counts towards the 150 minute goal. Resistance: Frequency should be a minimum of two times per week for each major muscle group. When isolating muscles, the frequency may need to increase. 20-30 minutes CLX Band Strength Program Safetyand Effectiveness: Provide slow resistance in each direction [...] any other chronic condition. For additional information: [place] [employer]: www.acsm.org [place] [employer] on Exercise: www.acefitness.org [place] of Health: www.nih.gov Clinician: Tejas Garrido MS Motor Tester documented [facility] NoteEducation (EXEPMN) JOSH HUFFMAN ([id number]) 1960 F Date Time Provider Department 12/17/24 3:00 PM RESEARCH TECHNOLOGIST DIPTI Reason for Visit: Nutrition Assessment [1591] Patient [...] Text Encounter Status:Closed by TRANG SOSA on 12/17/24[facility] 12-17-2024 History of Present illness Narrative* David Hull MD - 12/17/2024 2:00 PM EST HEALTH EVALUATION ON: Josh Huffman [address] [facility] [address] DATE OF EXAMINATION: December 17, 2024 Age: [age] year old Clinic No. : [id number] PRESENT COMPLAINTS: Physical examination. MEDICATION ALLERGIES: None. [...] (10/2019). Hyperlipidemia (10/2019). Elevated Lp(a). Prediabetes (07/2023: DBS=711, A1c=5.9%). Ascending aorta dilation (4.[address] 10/2019-07/2023). Transient Ischemic Attack (1987; during first , diagnosed ASD, repaired at [facility] after delivery). Atrial Septal Defect (1987; repaired at [facility] at age 27). Hypertension (2012). Hypothyroidism [...] days per week. 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 She is [...] rate and rhythm. Breasts: Deferred to her CONFERENCE PLANNING MANAGER. Abdomen: Abdomen soft, non-tender. Bowel sounds normal. No masses, organomegaly, or bruit. Extremities: Osteoarthritic changes of both hands. Bilateral varicose veins of legs and ankle. No edema, or skin discoloration. Good capillary refill. Peripheral pulses: Normal. Strong peripheral pulses. Neuro: Alert and oriented to person, place, and time. Gait normal. Reflexes normal and symmetric. Pelvic and rectal: Deferred to her CONFERENCE PLANNING MANAGER. STUDIES Complete Blood Count: Normal. Metabolic Profile: [...] for the highest-risk patients (those with known coronaryartery disease, or have diabetes plus 1 other [...] the average blood sugar for the 3 monthperiod before the test. A1c can be helpful [...] suggestive that a person has diabetes. The [place] Diabetes Associationrecommends that most people with diabetes maintain a [...] for women. Your maximum weight should be 157.1pounds to get to 28% body fat. Your abdominal waist circumference is 44.5 inches. Your jszhj-yw-zgianhyy is 0.88 and your gjqfi-ti-olwlik ratio is 0.64. [place] waist to hip ratio is 0.90 or less for men and 0.80 or less for women. For both sexes, an ideal lubxf-ax-dhhmka ratio is 0.50 or less. Yourideal weight is the weight you can obtain to get your waist circumference to 34.5 inches (or a zhxrp-oy-fznlpp ratio of 50% or lower). Bone Mineral [...] a coronary heart disease event (myocardial infarction, coronaryinsufficiency, and angina pectoris) is 1.6%. See attached [...] right left internal carotid arteries and distal rightcommon carotid artery without significant stenosis. Atherosclerotic plaque noted in the mid abdominal aorta. Transient ischemic attack (1987; during first , diagnosed ASD, repaired at [facility] after delivery). Atrial septal defect (1987; repaired at [facility] at age 27). Hypertension (2013). Hypothyroidism (2016). Current dose of levothyroxine is appropriate. Elevated ferritin level with normal iron studies. Elevated ultrasensitive CRP (5.1). This could be due to excess weight. However, CRP is a marker forinflammation and has been recognized as an independent [...] least 75 minutes per week, or an equivalentcombination of the two, and engaging in muscle strengthening activity at least twice per week. If you develop any unexplained, recurrent chest pain, palpitations or skipping heart beats, shortness ofbreath or lightheadedness, see your personal physician or a medical pathology teacher for evaluation. Try to achieve Zone 2 stage of aerobic exercise. This is at a speed slow enough that you can still maintain a conversation but fast enough that the conversation might be a little strained. The hitchcock is to find anactivity that fits into your lifestyle, that you [...] to drive health benefits and make improvements onceyou get over the initial hope of trying [...] of a cardiac event over at least thenext five years. A score of 0 has a 95-99% negative predictive value. However, you have atherosclerosis of both right and left internal carotid arteries and atherosclerotic plaque noted in your abdominal aorta. Because of your genetically-determined elevated Lp(a) cholesterol, I recommend starting s tatin medication such as rosuvastatin 10 mg daily [...] you good health, David Hull M.D., F.A.C.P. * Tyrese Pandey RN - 12/17/2024 1:13 PM EST Pt. was identified by name and birthdate. [...] with patient. See also immunization section in [facility] for vaccine history and vaccines patient received today. Td-na Tdap-2016 Pneumococcal- (Pneumovax 23)-1998 Prevnar 13- na PCV -2022 Hepatitis A-na Hepatitis B-na Influenza-2022; given today Shingrix-x2; 2020 Covid-19 5100-0943- 2022; given today RSV- 2022 See Immunization record in EPIC. Discussed with patient current recommendations from the CDC for routine adult immunizations. Questions answered. Pt. verbalizes understanding of information discussed. Provided patient with [facility] Immunization System Document and VIS sheet. VISUAL ACUITY Patient declines vision exam Date of Last Exam - 2023 Vision Correction Reading Glasses documented in this encounterTr[facility]03-04-2025 NoteHNO ID: [id number] Author: DAVID HULL MD Service: ? Author Type: Physician Type: Progress Notes Filed: 12/17/2024 17:27 Note Text: HEALTH EVALUATION ON: Josh Huffman [address] [facility] [address] DATE OF EXAMINATION: December 17, 2024 Age: [age] year old Clinic No. : [id number] PRESENT COMPLAINTS: Physical examination. MEDICATION ALLERGIES: None. PRESENT MEDICATIONS: Lisinopril HCTZ 1012.5 mg. Take one tablet daily. Toprol XL 100 mg. Take one tablet daily. Synthroid (levothyroxine) 100 mcg once daily 2x/week (MonANDS). Synthroid (levothyroxine) 112 mcg once daily 5x/week [...] (10/2019). Hyperlipidemia (10/2019). Elevated Lp(a). Prediabetes (07/2023: IJR=970, A1c=5.9%). Ascending aorta dilation (4.[address] 10/2019-07/2023). Transient Ischemic Attack (1987; during first , diagnosed ASD, repaired at [facility] after delivery). Atrial Septal Defect (1987; repaired at [facility] at age 27). Hypertension (2012). Hypothyroidism [...] days per week. 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 She is [...] Neck: Supple, no a (more content not included)...[facility] 12-17-2024 History of Present illness Narrative* Pepper Hernandez RT(R) - 12/17/2024 1:30 PM EST Radiology Service Progress Note PATIENT NAME: Josh Huffman DATE OF SERVICE: December 17, 2024 TIME: 12:33 PM PATIENT IDENTITY VERIFICATION COMPLETED USING TWO (2) IDENTIFIERS: Name and Date of confirmedby patient verbally and Name and Date of confirmed by identification band. FALL SCREENING: Has the patient had 2 falls in the last year or 1 fall with injury or currently using an Ambulatory Assistive Device (Walker, Cane, Wheelchair, Crutches, etc.)? No PATIENT GENDER DATA: Assigned female at . status: : No status:NO. PATIENT RELEVANT IMPLANT DATA REVIEWED: Yes PATIENT PRESENTS WITH AN IMPLANTABLE OR ATTACHED DISABILITY PROGRAM NAVIGATOR: No RADIOLOGY DEPARTMENT: CT; Exam(s) Completed: Cardiac PERIPHERAL IV DATA: Not applicable SIGNED BY: MARILU Collier) December 17, 2024 12:33 PM documented in this encounterTrinity Health System03-04-2025 NoteHNO ID: [id number] Author: PEPPER HERNANDEZ RT(R) Service: Radiology Author Type: Index Clerk Type: Progress Notes Filed: 12/17/2024 12:33 Note [...] PATIENT PRESENTS WITH AN IMPLANTABLE OR ATTACHED DISABILITY PROGRAM NAVIGATOR: No RADIOLOGY DEPARTMENT: CT; Exam(s) Completed: Cardiac PERIPHERAL IV DATA: Not applicable SIGNED BY: RT Amira(R) December 17, 2024 12:33 [facility]03-04-2025 NoteHNO ID: [id number] Author: TYRESE PANDEY RN Service: ? Author [...] with patient. See also immunization section in [facility] for vaccine history and vaccines patient received today. Td-na Tdap-2016 Pneumococcal- (Pneumovax 23)-1998 Prevnar 13- na PCV -2022 Hepatitis A-na Hepatitis B-na Influenza-2022; given today Shingrix-x2; 2020 Covid-19 4913-6516- 2022; given today RSV- 2022 See Immunization record in EPIC. Discussed with patient current recommendations from the CDC for routine adult immunizations. Questions answered. Pt. verbalizes understanding of information discussed. [facility] Document and VIS sheet. VISUAL ACUITY Patient declines vision exam Date of Last Exam - 2023 Vision Correction [facility]es[facility] History of Present illness Narrative* Andrew Calvo RT(R) - 12/17/2024 10:15 AM EST Radiology Service Progress Note PATIENT NAME: Josh Huffman DATE OF SERVICE: December 17, 2024 TIME: 11:07 AM PATIENT IDENTITY VERIFICATION COMPLETED USING TWO (2) IDENTIFIERS: Name and Date of confirmedby patient verbally. FALL SCREENING: Has the patient had 2 falls in the last year or 1 fall with injury or currently using an Ambulatory Assistive Device (Walker, Cane, Wheelchair, Crutches, etc.)? No PATIENT GENDER DATA: Assigned female at . status: : No status:NO. PATIENT RELEVANT IMPLANT DATA REVIEWED: Yes PATIENT PRESENTS WITH AN IMPLANTABLE OR ATTACHED DISABILITY PROGRAM NAVIGATOR: No RADIOLOGY DEPARTMENT: Mammography PERIPHERAL IV DATA: Not applicable SIGNED BY: MARILU Velasquez) December 17, 2024 11:07 AM documented in this encounterTrinity Health System03-04-2025 NoteHNO ID: [id number] Author: ANDREW CALVO RT(R) Service: ? Author Type: Index Clerk Type: Progress Notes Filed: 12/17/2024 11:07 Note [...] PATIENT PRESENTS WITH AN IMPLANTABLE OR ATTACHED DISABILITY PROGRAM NAVIGATOR: No RADIOLOGY DEPARTMENT: Mammography PERIPHERAL IV DATA: Not applicable SIGNED BY: RT Eva(Gregg) December 17, 2024 11:07 [facility]03-04-2025 NoteHNO ID: [id number] Author: TRANG SOSA RD Service: ? Author Type: Registered Dietitian Type: Progress Notes Filed: 12/17/2024 08:49 Note Text: [facility] Nutrition Progress Note Josh Huffman [id number] Assessment Physical Findings: Current Weight and Height: 99.7 kg (219 lb 11.2 oz) 175.3 cm (5' 9) Body mass index is 32.44 kg/m?. [place] BMI: 18.5-24.9 Percent body fat: 48.5 %, [place] body fat percentage is 18-28% for female. Weight corresponding to upper limit of normal body fat% range: 28%: 157.1 lbs Waist Circumference: 44.5 inches (Recommended waist circumference: 34.5 inches or less) Hip Circumference: 50.5 inches Waist to hip ratio: 0.88 ([place] waist/hip ratio: Female: 0.8 or less.) Patient's [...] her health. Breakfast: orange or an apple, cypriot yogurt Lunch: lunch meetings often- sandwiches, salads. Chooses whole grains at work. Snack: snacks after work before dinner- pretzels, chips Dinner: loves to cook. Protein (chicken often, fish/ shrimp 2x/ week, red meat 2x/ week), vegetables with dinner usually (broccoli often, greens), rice/potatoes/pasta. Cheese with meals sometimes. Uses both butter and oil. Will have beans with cayman islander meals, makes lentil soups sometimes. Fruit with [...] ASD (atrial septal defect) 1988 repaired at [facility] at age 27 Bilateral hip bursitis [...] during first , diagnosed ASD, repaired at [facility] after delivery Vitamin D deficiency 10/31/2019 Labs: [...] Nutrition Monitoring AND Evaluation: (more content not included)...[facility]03-04-2025 History of Present illness Narrative* Trang Sosa, CHARISSE - 12/17/2024 7:48 AM EST [facility] Nutrition Progress Note Josh Britney Huffman [id number] Assessment Physical Findings: Current Weight and Height: 99.7 kg (219 lb 11.2 oz) 175.3 cm (5' 9) Body mass index is 32.44 kg/m . [place] BMI: 18.5-24.9 Percent body fat: 48.5 %, [place] body fat percentage is 18-28% for female. Weight corresponding to upper limit of normal body fat% range: 28%: 157.1 lbs Waist Circumference: 44.5 inches (Recommended waist circumference: 34.5 inches or less) Hip Circumference: 50.5 inches Waist to hip ratio: 0.88 ([place] waist/hip ratio: Female: 0.8 or less.) Patient's [...] her health. Breakfast: orange or an apple, cypriot yogurt Lunch: lunch meetings often- sandwiches, salads. Chooses whole grains at work. Snack: snacks after work before dinner- pretzels, chips Dinner: loves to cook. Protein (chicken often, fish/ shrimp 2x/ week, red meat 2x/ week), vegetables with dinner usually (broccoli often, greens), rice/potatoes/pasta. Cheese with meals sometimes. Uses both butter and oil. Will have beans with cay[place] islander meals, makes lentil soups sometimes. Fruit withdinner usually. Snack: none usually. Beverages: Coffee 2 [...] ASD (atrial septal defect) 1988 repaired at [facility] at age 27 Bilateral hip bursitis [...] during first , diagnosed ASD, repaired at [facility] after delivery Vitamin D deficiency 10/31/2019 [...] with body fat 20.5% in excess and awaist circumference 10.0 above recommended. Waist to hip ratio and visceral fat are above ideal ranges. Weight History/Weight Change: patient reports weight has remained stable over the past year. Pt has gained 3.5# body weight, decreased 1.6# skeletal muscle mass, and increased 1.9% body fat since last [facility] health physical in 07/2023. Food recall showing: [...] to best support your health goals. After fci- focus on having healthy, balanced lunches. Make [...] adding 1 tbsp rashida seeds to your cypriot yogurt in the morning. 1 tbsp of rashiad seeds has 5g fiber. Optimize Body Composition: Aim for 9346-2475 calories per day paired with exercise for [...] physiology. Strength training is essential to maintain musclemass. Consume high protein foods (totaling 15-35 g protein) with each meal or at least 3 times per day tobest maintain muscle mass. Prioritize protein and fiber [...] seeds (be mindful of the serving size listedon the container due to calorie content). Keep in mind that coconut oil is a saturated fat. Any fatthat is liquid at room temperature is unsaturated [...] food groups at each meal, and at least2 food groups at each snack. Aim to [...] by: Trang Sosa RD documented in this encounterTrinity Health System02-04-2025 Telephone encounter Note * Telephone Encounter - Tyrese Pandey RN - 11/19/2024 7:40 AM EST Images from the original note were not included. David Hull MD You; A11 Nurse Phone15 hours ago (4:19 PM) She has a calcium score scheduled. This will give me a measurement of her ascending aorta. Therefore a CTA is not necessary. [facility] Miscellaneous Notes* Telephone Encounter - Tyrese Pandey RN - 11/19/2024 7:40 AM EST Images from the original note were not included. David Hull MD You; A11 Nurse Phone15 hours ago (4:19 PM) She has a calcium score scheduled. This will give me a measurement of her ascending aorta. Therefore a CTA is not necessary. * Telephone Encounter - Tyrese Pandey RN - 11/18/2024 3:41 PM EST Previsit call completed. confirmed. Reviewed department guidelines/changes with pt in regard to covid 19-pt verbalized understanding. Additional consults: None Q: will email Dr Hull per Dr Partida's 2022 letter I recommend you have another CT angiogram of the chest in 1-2 years to monitor the diameter of theascending aorta. Do you want to order one? documented in this encounterTrinity Health System02-03-2025 Telephone encounter Note * Telephone Encounter - Tyrese Pandey RN - 11/18/2024 3:41 PM EST Previsit call completed. confirmed. Reviewed department guidelines/changes with pt in regard to covid 19-pt verbalized understanding. Additional consults: None Q: will email Dr Hull per Dr Partida's 2022 letter I recommend you have another CT angiogram of the chest in 1-2 years to monitor the diameter of theascending aorta. Do you want to order one? [facility] NoteHNO ID: [id number] Author: AVI DOBBINS MD Service: ? Author Type: Physician Type: Progress Notes Filed: 06/24/2024 11:11 Note Text: Avi Dobbins MD Department of Orthopaedics Orthopaedics [address] [place] [address] Dept: [phone] Dept June 24, 2024 CHIEF COMPLAINT: Follow Up of the Right Knee and 3 weeks post visit right knee pain (Here for cortisone injection) HPI Patient states her pain is better since she has been taking the Celebrex. She is leaving on Monday for [place] and will need a refill before she [...] knee joint Informed Consent Consent Obtained: Verbal [place] Protocol A moment to CARE was completed. [...] COLONOSCOPY Comment: hemorrhoids, diverticulosis, advised 10-year follow-up 1987: HEART SURGERY HX Comment: at [facility], atrial septal defect repair 2002: LASIK; [...] HPI) Psych (no depression, anxiety) Avi Dobbins [facility]09-09-2024 History of Present illness Narrative* Avi Dobbins MD - 06/24/2024 10:27 AM EDTAssociated Order(s): Large Joint Arthro/Inj: R knee joint Post-Procedure Diagnose(s): Acute pain of right knee; Primary osteoarthritis of right knee Avi Dobbins MD Department of [facility]opaedics [facility] [address] [facility] [facility] [address] Dept: [phone] Dept June 24, 2024 CHIEF COMPLAINT: Follow Up of the Right Knee and 3 weeks post visit right knee pain (Here for cortisone injection) HPI Patient states her pain is better since she has been taking the Celebrex. She is leaving on Monday for [place] and will need a refill before she [...] knee joint Informed Consent Consent Obtained: Verbal [place] Protocol A moment to CARE was completed. [...] COLONOSCOPY Comment: hemorrhoids, diverticulosis, advised 10-year follow-up 1987: HEART SURGERY HX Comment: at [facility], atrial septal defect repair 2002: LASIK; [...] anxiety) Avi Dobbins MD documented in this encounterTrinity Health System08-19-2024 NoteHNO ID: [id number] Author: AVI DOBBINS MD Service: ? Author Type: Physician Type: Progress Notes Filed: 06/03/2024 13:54 Note Text: Avi Dobbins MD Department of Orthopaedics Orthopaedics [address] [facility] [address] Dept: [phone] Dept June 03, 2024 CHIEF COMPLAINT: Established [...] one at time. She is leaving for [place] 2 weeks ago and will be doing some hiking. ASSESSMENT: M25.561 Acute pain of right knee (primary encounter diagnosis) PLAN: She does Konik tweaked the knee while playing with her grandchildren. Will try some strengthening and an anti-inflammatory for a few weeks. If she continues to have some troubles, would recommend a cortisone injection before her [place] trip. We can see her back on [...] follow-up 1988: HEART SURGERY HX Comment: at [facility], atrial septal defect repair 2002: LASIK; [...] HPI) Psych (no depression, anxiety) Avi Dobbins [facility]08-19-2024 History of Present illness Narrative* Avi Dobbins MD - 06/03/2024 12:58 PM EDT Avi Dobbins MD Department of Orthopaedics Orthopaedics [address] [facility] [address] Dept: [phone] Dept June 03, 2024 CHIEF COMPLAINT: Established [...] one at time. She is leaving for [place] 2 weeks ago and will be doing some hiking. ASSESSMENT: M25.561 Acute pain of right knee (primary encounter diagnosis) PLAN: She does Konik tweaked the knee while playing with her grandchildren. Will try some strengthening and an anti-inflammatory for a few weeks. If she continues to have some troubles, would recommend a cortisone injection before her [place] trip. We can see her back on [...] follow-up 1988: HEART SURGERY HX Comment: at [facility], atrial septal defect repair 2002: LASIK; [...] anxiety) Avi Dobbins MD documented in this encounterTrinity Health System06-10-2024 NoteHNO ID: [id number] Author: AVI DOBBINS MD Service: ? Author Type: Physician Type: Progress Notes Filed: 03/25/2024 14:22 Note Text: Avi Dobbins MD Department of Orthopaedics Orthopaedics [address] [facility] [address] Dept: [phone] Dept March 25, 2024 CHIEF COMPLAINT: Post [...] Patient has no known allergies. Avi Dobbins [facility]06-10-2024 History of Present illness Narrative* Avi Dobbins MD - 03/25/2024 1:55 PM EDT Avi Dobbins MD Department of Orthopaedics Orthopaedics [address] [facility] [address] Dept: [phone] Dept March 25, 2024 CHIEF COMPLAINT: Post Op of the Right Knee and 6 weeks 5 days post op Right knee arthroscopic (medial menisectomy lateral and PF chondroplasties). HPI Patient here for post op visit right knee arthroscopy. Patient denies any day. She is back to doingactivities she has been unable to do in [...] allergies. Avi Dobbins MD documented in this encounterTrinity Health System05-06-2024 NoteHNO ID: [id number] Author: COURTNEY COCHRAN PA-C Service: ? Author Type: Physician Test Lead Type: Progress Notes Filed: 02/19/2024 11:45 Note Text: Courtney Cochran PA-C Department of Orthopaedics Orthopaedics [address] [facility] [address] Dept: [phone] Dept February 19, 2024 CHIEF COMPLAINT: Post [...] allergies. This note was partially generated using Queryly voice recognition system, and there may be some incorrect words, spellings, and punctuation that were not noted in checking the note before saving. [facility] History of Present illness Narrative* Courtney Cochran PA-C - 02/19/2024 9:02 AM EDT Courtney Cochran PA-C Department of Orthopaedics Orthopaedics [address] [place] [address] Dept: [phone] Dept February 19, 2024 CHIEF COMPLAINT: Post Op and Follow Up of the Right Knee. ASSESSMENT: S83.231D Complex tear of medial meniscus of right knee as current injury, subsequent encounter (primary encounter diagnosis) M17.11 Primary osteoarthritis of right knee SUMMARY/PLAN: Patient presents 12 days status post right knee arthroscopy. She is doing very well. Notes that herpain is much improved since surgery, has been [...] allergies. This note was partially generated using Queryly voice recognition system, and there may be some incorrect words, spellings, and punctuation that were not noted in checking the note before saving. Courtney Cochran PA-C * Darcy Montelongo RN - 02/19/2024 8:48 AM EDT AMB ROOMING INTAKE FLOWSHEET DATA Pain Pain [...] and tylenol as needed. documented in this encounterTrinity Health System05-06-2024 NoteHNO ID: [id number] Author: DARCY MONTELONGO RN Service: ? Author [...] Minimal pain. Using ice and tylenol as needed.[facility]04-24-2024 NoteHNO ID: [id number] Author: MNI HURD APRN.CRNA Service: Anesthesiology Author Type: Nurse Exhibit Builder Type: Anesthesia Procedure Notes Filed: 02/07/2024 11:44 [...] Size 3 Seal Adequate: yes SIGNATURE: Min Hurd APRN.SHIPPING POINT INSPECTOR PATIENT NAME: Josh Huffman DATE: February 07, 2024 TIME: 11:44 AM CSN: [id number] Instructions* Patient Instructions* Mahsa Matias APRN.OVERLOCK ELASTIC ATTACHER - 01/24/2024 9:48 AM EDT PATIENT PREOPERATIVE INSTRUCTIONS Avi Dobbins MD has scheduled you for your procedure at this surgery center: [facility]: [phone] -- [address] [facility] [facility] [address]. Please read below carefully for your personalized [...] please check with your dialysis center or unmanned aircraft systems roboticist to see if any adjustments need to [...] Procedures: - YOU MUST HAVE A RESPONSIBLE MAINFRAME SYSTEMS ENGINEER TAKE YOU HOME. 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 - We recommend that a responsible person stays with you overnight to take care of you. - You cannot stay in a hotel alone after outpatient surgery. You will not be permitted to have yoursurgery, if you do not have someone to [...] Advance Directive, please fax a copy to [phone] or email to for it to be added to your chart. If you do not have an Advance Directive, you can find the appropriate form and more information at [email or web address]. We recommend that youcomplete the Advance Directive form found on the website and bring it with you the day of your surgery. It can be witnessed and scanned into your chart that day. Mahsa Matias APRN.OVERLOCK ELASTIC ATTACHER documented in this encounterTrinity Health System04-10-2024 History and physical note * Mahsa Matias APRN.CNS - 01/24/2024 9:30 AM EDT PREANESTHESIA CONSULT CLINIC TELEHEALTH VISIT Patient has been identified by name and date of : Yes This is a virtual visit using [employer] Zoom Video Visit. It require patient- provider interaction forthe medical decision making as documented below. Reason [...] licensure. The patient's identity and physical location wereverified at the time of this visit. Either the patient or their legal accounting representative has been informed of the risks [...] pain scale,,aching, sharp pain. Consulted D Tear MedialMeniscus Right Knee:Current Injury:Subsequent Encounter.. Esteban. After exam, [...] ASD (atrial septal defect) 1988 repaired at [facility] at age 27 Bilateral hip bursitis [...] during first , diagnosed ASD, repaired at [facility] after delivery Vitamin D deficiency 10/31/2019 PAST SURGICAL HISTORY Procedure Laterality Date COLONOSCOPY 07/23/2012 hemorrhoids, diverticulosis, advised 10-year follow-up HEART SURGERY HX 1987 at [facility], atrial septal defect repair LASIK Right [...] 32.3 Neuro: No history of TIA's, stroke, OVERLOCK ELASTIC ATTACHER tumor, impaired sensorium, hemiplegia, paraplegia or quadraplegia. [...] or incontinence,, stones or chronic kidney disease PATIENT RELATIONS SPECIALIST: Negative for abnormal vaginal bleeding, abnormal vaginal discharge., N/A : N/A, No LMP recorded. Patient is postmenopausal. Endocrine: Hypothyroidism takes med Prediabetes Hematology: No history of bleeding or clotting disorder. Pt is not taking anti- coagulation or platelet medications. No history of hematological [...] labs Most recent EKG: of 08/01/23 in [facility] Procedure Date : Aug 01 2023 13:00:16 Edit Date : Aug 06 2023 11:24:47 Diagnosis: NORMAL SINUS RHYTHM NORMAL ECG Confirmed by ANGEL ZAVALETA MD ([id number]) on 08/06/2023 11:24:45 AM EXERCISE STRESS TEST in [facility] of 08/01/23 Stress ECG Summary: The [...] 134/80 mmHg. The double product achieved was [id number]. Impression/Recommendations ASSESSMENT: Obesity, Class I, BMI 30-34.9 Assessment: BMI 32.3 Hypercholesterolemia Assessment: not on med ,stable Prediabetes Assessment: monitored per PCP Hypothyroidism Assessment: takes med ,monitored per PCP Ascending aorta dilation (4.3 cm on non-contrast CT 10/2019, and on CT angiogram 07/2023) Assessment: monitored per PCP TIA (transient ischemic attack) Assessment: during first , diagnosed ASD, repaired at [facility] after delivery ASD (atrial septal defect) [...] 9:47 AM PAGER/CONTACT #: documented in this encounterTrinity Health System04-09-2024 Miscellaneous Notes* Telephone Encounter - Darline Phelps MA - 01/23/2024 3:30 PM EDT Peer to peer scheduled on 01/29/2024 at 11:[address] Yamileth Faust. documented in this encounterTrinity Health System03-28-2024 NoteHNO ID: [id number] Author: AVI DOBBINS MD Service: ? Author Type: Physician Type: Progress Notes Filed: 01/17/2024 09:36 Note Text: Avi Dobbins MD Department of Orthopaedics Orthopaedic Surgery [facility] [address] [address] [facility] [address] Dept: [phone] Dept January 11, 2024 CHIEF COMPLAINT: Follow [...] THE MEDIAL MENISCUS. DEGENERATIVE CHONDRAL CHANGES DESCRIBED. High School English Teacher: PSCB Transcribe Date/Time: Jan 01 2024 9:23A [...] 10-year follow-up HEART SURGERY HX 1987 at [facility], atrial septal defect repair LASIK Right [...] 100 mg by mout (more content not included)...[facility]03-28-2024 History of Present illness Narrative* Avi Dobbins MD - 01/11/2024 3:36 PM EDT Avi Dobbins MD Department of Orthopaedics Orthopaedic Surgery [facility] [address] [address] [facility] [address] Dept: [phone] Dept January 11, 2024 CHIEF COMPLAINT: Follow [...] alternatives and potential complications with op and non-op.She would like to proceed with an arthroscopy. [...] THE MEDIAL MENISCUS. DEGENERATIVE CHONDRAL CHANGES DESCRIBED. High School English Teacher: CHELSEA Transcribe Date/Time: Jan 01 2024 9:23A [...] 10-year follow-up HEART SURGERY HX 1987 at [facility], atrial septal defect repair LASIK Right [...] anxiety) Avi Dobbins MD documented in this encounterTrinity Health System03-16-2024 History of Present illness Narrative* Octavia Reed, RT(R) - 12/30/2023 1:00 PM EDT Radiology Service Progress Note PATIENT NAME: Josh Huffman DATE OF SERVICE: December 30, 2023 TIME: 1:21 PM PATIENT IDENTITY VERIFICATION COMPLETED USING TWO (2) IDENTIFIERS: Name and Date of confirmedby patient verbally and Name and Date of confirmed by identification band. FALL SCREENING: Has the patient had 2 falls in the last year or 1 fall with injury or currently using an Ambulatory Assistive Device (Walker, Cane, Wheelchair, Crutches, etc.)? No PATIENT GENDER DATA: Female. status: : No status: NO. PATIENT RELEVANT IMPLANT DATA REVIEWED: Yes PATIENT PRESENTS WITH AN IMPLANTABLE OR ATTACHED DISABILITY PROGRAM NAVIGATOR: No RADIOLOGY DEPARTMENT: MR; Exam(s) Completed: Lower MSK: Knee, right PERIPHERAL IV DATA: Not applicable SIGNED BY: RT Erickson(Gregg) December 30, 2023 1:21 PM documented in this encounterTrinity Health System03-16-2024 NoteHNO ID: [id number] Author: OCTAVIA REED RT (R) Service: Radiology [...] PATIENT PRESENTS WITH AN IMPLANTABLE OR ATTACHED DISABILITY PROGRAM NAVIGATOR: No RADIOLOGY DEPARTMENT: MR; Exam(s) Completed: Lower MSK: Knee, right PERIPHERAL IV DATA: Not applicable SIGNED BY: RT Erickson(Gregg) December 30, 2023 1:21 [facility]03-04-2024 History of Present illness Narrative* Avi Dobbins MD - 12/18/2023 8:13 AM EST Avi Dobbins MD Department of Orthopaedics Orthopaedics [facility] [address] Dept: [phone] Dept December 18, 2023 CHIEF COMPLAINT: Established [...] as well as using topical Voltaren. Bracing rosalie physician guided physical therapy program. With her still having quite a bit of trouble and some mechanical symptoms of the knee with only some mild apparent arthritis on her plain films, an MRI isrecommended. Will see her back after her imaging study to help determine next step. Exam: Persistent, mild effusion. Mild antalgia to the right. Positive Guillaume's without a palpable click. PositiveThesally's Imaging: IMPRESSION: Mild osteoarthritis right knee. High School English Teacher: CHELSEA Transcribe Date/Time: Aug 01 2023 3:45P [...] allergies. Avi Dobbins MD documented in this encounterTrinity Health System11-27-2023 History of Present illness Narrative* Ashley Abarca MD - 09/11/2023 1:29 PM EST Consultation requested by Dr. Allan Partida for [...] HTN, psoriasis. On exam, she has an anumbilical hernia and on CT she has the [...] 11, 2023 2:18 PM documented in this encounterTrinity Health System11-27-2023 Nurse Note* Sidney Mullen - 09/11/2023 1:00 PM EST What is the reason for your visit today? Consult ventral hernia Who is your referring physician? Dr. Partida Are you having poor oral intake? NO Have you had unintentional weight loss of 15 lbs/7 Kg in the last 3-6 months? NO Bowels: regular Wound: clean & dry Temperature: No Drains: No documented in this encounterTrinity Health System11-27-2023 History and physical note * Tresa Li MD - 09/11/2023 12:58 PM EST [facility] - HISTORY AND PHYSICAL SUBJECTIVE: Chief Complaint: ventral hernia HPI: Josh Huffman is a 63 year old female with history of HTN, ASD s/p repair, hypothyroidism, arthritis and psoriasis and who presents with ventral hernia. She states that she has only noticed the hernia in the past year and that it was formally diagnosedby her PCP at her most recent executive [...] ASD (atrial septal defect) 1988 repaired at [facility] at age 27 Bilateral hip bursitis 11/2021 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 Elevated uric acid in blood 10/31/2019 without gout Heel spur resolved with Tenex Hypercholesterolemia 10/31/2019 Hypertension on medication since 2012 Hypothyroidism 2017 Menopausal state Normal coronary arteries, Coronary Calcium Score = 0 (10/2019) 10/31/2019 (normal spontaneous vaginal delivery) 1987, 1989, 1993 1988: 8'12; 1989 9'3; 1993: 9'1 Prediabetes 10/31/2019 Psoriasis scalp Right plantar fasciitis treated with Tenex TIA (transient ischemic attack) 1988 during first , diagnosed ASD, repaired at [facility] after delivery Vitamin D deficiency 10/31/2019 PAST SURGICAL HISTORY Procedure Laterality Date COLONOSCOPY 07/23/2012 hemorrhoids, diverticulosis, advised 10-year follow-up HEART SURGERY HX 1987 at [facility], atrial septal defect repair LASIK Right [...] tablet by mouth four times a week. //Mon/Mon levothyroxine (SYNTHROID) 112 mcg tablet Take 1 [...] Service 09/11/2023 12:58 PM documented in this encounterTrinity Health System11-24-2023 History of Present illness Narrative* Roxi Guzman, RT(R) - 09/08/2023 3:20 PM EST Radiology Service Progress Note PATIENT NAME: Josh Huffman DATE OF SERVICE: September 08, 2023 TIME: 2:24 PM PATIENT IDENTITY VERIFICATION COMPLETED USING TWO (2) IDENTIFIERS: Name and Date of confirmedby patient verbally. FALL SCREENING: Has the patient [...] 08, 2023 2:24 PM documented in this encounterTrinity Health System11-14-2023 Miscellaneous Notes* Telephone Encounter - Cassandra Ybarra LPN - 08/29/2023 1:32 PM EST Contacted patient to advise of Recent Imaging Needed prior to Appointment. No answer and VM left tocontact this documentation writer back, will await callback and [employer] message also sent regarding phone call. Cassandra Ybarra LPN documented in this encounterTrinity Health System10-17-2023 Nurse Note* Tyrese Pandey RN - 08/01/2023 4:33 PM EDT Immunization Pt identified by name/date of . Previous RN gave COVID 23-24; PCV20; & RSV VIS sheet earlier today and provided patient with [facility] Immunization System Document. Pt afebrile and allergies reviewed. Pt tolerated injection well. See immunization section in epic. * Gary Webber RN - 08/01/2023 9:44 AM EDT Pt. was identified by name and birthdate. [...] Hepatitis A-n/a Hepatitis B-n/a Influenza-07/2023 Shingrix-x2 Covid-19 [id number]- VIS given, vaccine pended RSV- VIS given, vaccine pended See Immunization record in EPIC. Discussed with patient current recommendations from the CDC for routine adult immunizations. Questions answered. Pt. verbalizes understanding of information discussed. [facility] Document and VIS sheet. VISUAL ACUITY Patient declines vision exam Date of Last Exam - scheduled in a few weeks [employer] Declined today BP Chon : BP Chon explained to pt. Questions answered. Pt. verbalizes understanding of information discussed. See BP Chon flowsheet for results. documented in this encounterTrinity Health System10-17-2023 History of Present illness Narrative* Isabel Ambrose RN - 08/01/2023 3:30 PM EDT Radiology Service Progress Note DATE OF SERVICE: [...] creatinine assay has traceable calibration to isotope dilution- mass spectrometry. Refer to KDIGO guidelines for clinical interpretation. In patients with unstable renal function, e.g. those with acute kidney injury, the eGFRmay not accurately reflect actual GFR. eGFR- Date [...] DATE: August 01, 2023 TIME: 4:05 PM * Saloni Kapoor RT(R) - 08/01/2023 3:30 PM EDT Radiology Service Progress Note PATIENT NAME: Josh Huffman DATE OF SERVICE: August 01, 2023 TIME: 4:17 PM PATIENT IDENTITY VERIFICATION COMPLETED USING TWO (2) IDENTIFIERS: Name and Date of confirmedby patient verbally and Name and Date of [...] 01, 2023 4:17 PM documented in this encounterTrinity Health System10-17-2023 History of Present illness Narrative* Mirian Caba RT(R) - 08/01/2023 1:20 PM EDT Radiology Service Progress Note PATIENT NAME: Josh Huffman DATE OF SERVICE: August 01, 2023 TIME: 2:09 PM PATIENT IDENTITY VERIFICATION COMPLETED USING TWO (2) IDENTIFIERS: Name and Date of confirmedby patient verbally and Name and Date of [...] DEPARTMENT: General X-ray: Exam(s) Completed: Lower Extremity X- Ray(s): Knee, AP / Lat / Tunne / Merchant Right PERIPHERAL IV DATA: Not applicable SIGNED BY: RT Chandler(R) August 01, 2023 2:09 PM documented in this encounterTrinity Health System10-17-2023 History of Present illness Narrative* Margot Reyes Tech - 08/01/2023 11:15 AM EDT Radiology Service Progress Note PATIENT NAME: Josh Huffman DATE OF SERVICE: August 01, 2023 TIME: 12:18 PM PATIENT IDENTITY VERIFICATION COMPLETED USING TWO (2) IDENTIFIERS: Name and Date of confirmedby patient verbally. FALL SCREENING: Has the patient [...] 01, 2023 12:18 PM documented in this encounterTrinity Health System10-17-2023 History of Present illness Narrative* Allan Partida MD - 08/01/2023 10:26 AM EDT Ms. Josh Huffman is a 63 year old female from [facility], who presents for a comprehensive health evaluation. Last Executive Physical 10/[address] Bermudez. PRESENT COMPLAINTS: Comprehensive health evaluation. PRESENT MEDICATIONS: Lisinopril-hydrochlorothiazide 10-12.5 mg once daily in the morning. Toprol XL (metoprolol succinate) 100 mg once daily in the evening. Synthroid (levothyroxine) 100 mcg once daily 4x/week (//Mon/Sun). Synthroid (levothyroxine) 112 mcg once daily 3x/week [...] (during first , diagnosed ASD, repaired at [facility] after delivery). ASD (Atrial Septal Defect) - 1987 (repaired at [facility] at age 27). Hypertension (on medication [...] Atrial septal defect repair - 1987 (at [facility]) LASIK - 2001 (Right) Colonoscopy - 07/23/2012 (hemorrhoids, diverticulosis, advised 10-year follow-up). Toe Surgery - 2012 (Tendon repairs due to step into groundhog hole, second surgery same year due toatrophic changes). Laser surg, greater and lesser saphenous veins, bilateral - 2018. Ultrasound guided plantar fasciotomy (Tenex) - 12/25/2020 [...] age 59. Paternal Grandmother: Diabetes. Son (Esteban [id number]): Diabetes type 1. Son (Antonio [id number]): No known problems Son (Sorin b14): Hearing loss (hearing aids since age 4). [...] poultry 2x/week, beef/pork 2-3x/week, shellfish or fish 2- 3x/week, with vegetables, fruit for dinner. Before 02/2023 was eating more fast/quick food and late in evening. Exercise: More regular since 02/2023. Walking 30-45mins 3-4x/week, swimming in summer, band resistance exercises 3-4x/week but not in past few months. OCCUPATIONAL HISTORY: [employer] 50 hours per week and travels 5% of the time. Mild stress level at work reported. Anticipates fci within next 2 years. REVIEW OF SYSTEMS: Feels rather well in general. Weight has been down about 10 pounds in the past year. No chest pain, palpitations, shortness of breath, lightheadedness with exertion, claudication, or edema. Checks BP about 1/month, usually 120-130/80-85 in daytime, lower in evening. Not able to take as deep a breath as in past before had COVID in [id number]. Not affecting ability to walk. No persistent heartburn. No changes in bowel habits. No urinary difficulties. Last Pap in 2019, never had abnormal Pap. Last mammogram and breast exam 2019. Knee osteoarthritis and hip bursitis, affecting sleep and ability to exercise more rigorously. Taking Aleve (naproxen) 220 mg regularly, occasionally uses Voltaren gel (diclofenac). Injections in hipbursas in 2021 was helpful. The rest of [...] results. Allan Partida MD documented in this encounterTrinity Health System10-17-2023 History of Present illness Narrative* Claudia Ponce, AUD - 08/01/2023 9:30 AM EDT EXECUTIVE PHYSICAL: HEARING SUMMARY Referred by: Allan Partida M.D. This patient was seen for puretone air conduction thresholds as part of a physical examination in [facility], [place] [address]. A brief case history and puretone air [...] Refer to the Auditory Test Record in [employer] for air conduction thresholds. NOTE: Testing involved assessment of air conduction thresholds only. The results should not be considered a comprehensive diagnostic audiologic evaluation. RIGHT EAR: Within normal limits 250-4000 Hz; mild hearing loss responses 6000- 8000 Hz. LEFT EAR: Within normal limits 250-6000 Hz; mild hearing loss response at 8000 Hz. RIGHT EAR LEFT EAR RETAIL SERVICES PROFESSIONAL 1* Average of 500, 1000, & 2000 Hz 13 dB 12 dB RETAIL SERVICES PROFESSIONAL 2* Average of 3000, 4000, & 6000 Hz 20 dB 18 dB COMPARISON: Asymmetry: No significant asymmetry was present between the right and left ears. NOTE: Asymmetry is defined as a difference between ears of > 15 dB for RETAIL SERVICES PROFESSIONAL 1 and/or > 30 dB for RETAIL SERVICES PROFESSIONAL 2 (AAO-HNS, 1997) Change: No significant change in air conduction thresholds from the previous test obtained on 10/31/2019 was noted. NOTE: A significant change is defined as a difference of > 15 dB for RETAIL SERVICES PROFESSIONAL 1 and/or > 20 dB forPTA 2 (AAO-HNS, 1997) RECOMMENDATIONS: *Results suggest normal hearing sensitivity of both ears at the majority of test frequencies. Retest as medically indicated. *Use hearing protective devices when exposed to loud noise to promote hearing loss prevention. ALLEN Andrews Licensed Audiology Aide [facility] # [id number] I verify that I have reviewed the history and test results, and I completed the interpretation and recommendations for this testing. González Mehta, [facility] Supervising Drama Critic DEFINITIONS: * Puretone Average (RETAIL SERVICES PROFESSIONAL) RETAIL SERVICES PROFESSIONAL 1 average of thresholds at 500, 1000, and 2000 Hz RETAIL SERVICES PROFESSIONAL 2 average of thresholds at 3000, 4000, and 6000 Hz Severity Descriptors Severity Range of intensity in decibels (dB) Normal 0-25 dB Mild 25-45 dB Moderate 45-60 dB Severe 60-90 dB Profound 90+ dB documented in this encounterTrinity Health System10-17-2023 History of Present illness Narrative* Trang Sosa, RD - 08/01/2023 8:08 AM EDT [facility] Nutrition Progress Note Josh Huffman [id number] Assessment Physical Findings: Current Weight and Height: 98.1 kg (216 lb 3.2 oz) 175.3 cm (5' 9) Body mass index is 31.93 kg/m . [place] BMI: 18.5-24.9 Percent body fat: 46.6 %, [place] body fat percentage is 18-28% for female. 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 Cooks with cheese sometimes.Pizza once every 2 weeks. Snack: loves salty [...] Date ASD (atrial septal defect) repaired at [facility] at age 27 Heel spur HTN (hypertension) Hypothyroid levothyroxine 75 mcg Menopausal state (normal spontaneous vaginal delivery) 1987, 1989, 1993 1987: 8'12; 1989 9'3; 1993: 9'1 Pap smear for cervical cancer screening 2016 Plantar fasciitis Psoriasis TIA (transient ischemic attack) 1988 during first , diagnosed ASD, repaired at [facility] after delivery Labs: available nutrition-related labs reviewed [...] with body fat 18.6% in excess and awaist circumference 8.5 above recommended. Waist to hip [...] food groups at each meal, and at least2 food groups at each snack. Aim to [...] processed meats (lau, deli meats, etc.) as muchas is realistic for optimal health. Incorporate some [...] training are important for both bone health andmaintenance/gain of muscle. Follow executive health physician recommendations/prescriptions [...] just 100 calories per day for a yearwould give you 10 lbs of weight loss. Criteria: lab values, body composition/weight, food recall, patient input Follow up: at next Executive Physical Referred/Supervised by: Jaquan/Della Consult Billing Type: body composition rate MNT: ea 15 minutes, 4 increments Signed by: Trang Sosa RD documented in this encounterTrinity Health System10-11-2023 Miscellaneous Notes* Telephone Encounter - Allan Partida MD - 07/26/2023 5:53 PM EDT CTA chest ordered. * Telephone Encounter - Gary Webber RN - 07/26/2023 10:18 AM EDT Previsit call completed. confirmed. Reviewed department guidelines/changes with pt in regard to covid 19-pt verbalized understanding. Additional consults: none Q: sent in yesterday per pt, not in Epic during call Per 2019 letter, Regarding the ascending aorta, we will plan to schedule a follow-up CTA scan of the thoracic aorta in one year when you return to [facility] to confirm stability. Dr. Partida, pt has not completed. Do you want to order? documented in this encounterTrinity Health System2021 NoteHNO ID: [id number] Author: Dean Tejeda MD Service: ? Author [...] exercise in pool. Planning on vacation to [facility] in [place] in March. PAIN EVALUATION No data found in the last 1 encounters. History/Data Reviewed: PAST MEDICAL HISTORY Diagnosis Date - ASD (atrial septal defect) repaired at [facility] at age 27 - Heel spur - HTN (hypertension) - Hypothyroid levothyroxine 75 mcg - Menopausal state - (normal spontaneous vaginal delivery) 1987, 1989, 1993 1987: 8'12; 1989 9'3; 1993: 9'1 - Pap smear for cervical cancer screening 2016 - Plantar fasciitis - Psoriasis - TIA (transient ischemic attack) 1987 during first , diagnosed ASD, repaired at [facility] after delivery PAST SURGICAL HISTORY Procedure Laterality Date - EXTENSIVE FOOT SURGERY - HEART SURGERY HX 1987 at [facility], atrial septal defect repair - LASIK [...] mi/day ? Discussed training for vacation to [place] in March ? FU with us in future as needed-will communicate with Dr. Kumar if she wishes scheduled fu for OA in foot? Return if symptoms worsen or fail to improve. Part of this note has been created using voice recognition software. It may contain errors which are inherent in voice-recognition technology. Dean Tejeda [facility]03-24-2021 NoteHNO ID: [id number] Author: Dean Tejeda MD Service: ? Author [...] - ASD (atrial septal defect) repaired at [facility] at age 27 - Heel spur - HTN (hypertension) - Hypothyroid levothyroxine 75 mcg - Menopausal state - (normal spontaneous vaginal delivery) 1987, 1989, 1993 1987: 8'12; 1989 9'3; 1993: 9'1 - Pap smear for cervical cancer screening 2016 - Plantar fasciitis - Psoriasis - TIA (transient ischemic attack) 1987 during first , diagnosed ASD, repaired at [facility] after delivery PAST SURGICAL HISTORY Procedure Laterality Date - EXTENSIVE FOOT SURGERY - HEART SURGERY HX 1987 at [facility], atrial septal defect repair - LASIK [...] are inherent in voice-recognition technology. Dean Tejeda [facility]02-17-2021 NoteHNO ID: [id number] Author: Dean Tejeda MD Service: ? Author [...] improvement, and even worsening with treatment by impregnator helper at outside location. Has been seen by Dr. Kumar and sent here for consideration for percutaneous fasciotomy. PAIN EVALUATION 12/02/2020 0821 Pain Level: 8 Pain Location: Heel-Right Description: Aching Duration Amount of Time: 2.5 Duration Units: Years Frequency: Continuous Intervention: Exercise;Medication PAST MEDICAL HISTORY Diagnosis Date - ASD (atrial septal defect) repaired at [facility] at age 27 - Heel spur - HTN (hypertension) - Hypothyroid levothyroxine 75 mcg - Menopausal state - (normal spontaneous vaginal delivery) 1987, 1989, 1993 1987: 8'12; 1989 9'3; 1993: 9'1 - Pap smear for cervical cancer screening 2015 - Plantar fasciitis - Psoriasis - TIA (transient ischemic attack) 1987 during first , diagnosed ASD, repaired at [facility] after delivery PAST SURGICAL HISTORY Procedure Laterality Date - EXTENSIVE FOOT SURGERY - HEART SURGERY HX 1987 at [facility], atrial septal defect repair - LASIK Right 2001 - PAST SURGICAL HISTORY OF 2018 laser surg, greater and lesser saphenous veins - REMOVAL SPLEEN, PARTIAL 1969 traumatic - SCRN COLONOSCOP 2012 10 [...] up PCUST Return for By phone with hydrological technical officer for scheduling for percutaneous fasciotomy. Part of this note has been created using voice recognition software. It may contain errors which are inherent in voice-recognition technology. Dean Tejeda [facility]02-11-2021 NoteHNO ID: [id number] Author: Gary Kumar Service: ? Author Type: [...] treatment as included: multiple conservative treatments including [id number] and custom foot orthotics, supportive shoe gear, stretching exercises, boot immobilization, night splint, physical therapy as well as electromagnetic pulse treatments with little improvements of her symptoms. PMH PAST MEDICAL HISTORY Diagnosis Date - ASD (atrial septal defect) repaired at [facility] at age 27 - Heel spur - HTN (hypertension) - Hypothyroid levothyroxine 75 mcg - Menopausal state - (normal spontaneous vaginal delivery) 1987, 1989, 1993 1987: 8'12; 1989 9'3; 1993: 9'1 - Pap smear for cervical cancer screening 2015 - Plantar fasciitis - Psoriasis - TIA (transient ischemic attack) 1987 during first , diagnosed ASD, repaired at [facility] after delivery MEDS Current Outpatient Medications [...] of the sinus tarsi (more content not included)...[facility] 11-26-2020 NoteHNO ID: [id number] Author: Jaylon Martin (Tech) Service: ? Author Type: Index Clerk Type: Progress Notes Filed: 11/26/2020 3:14 PM [...] HEMATOLOGY: Negative for excessive bleeding, clots, bleeding disorders.[facility]01-21-2021 NoteHNO ID: [id number] Author: Gary Kumar Service: ? Author Type: [...] to have tried multiple conservative treatments including jegf-ptb-ffyrrli and custom foot orthotics, supportive shoe gear, [...] that currently, she has been using the [id number] inserts and stretching exercises. Notes that the [...] - ASD (atrial septal defect) repaired at [facility] at age 27 - Heel spur - HTN (hypertension) - Hypothyroid levothyroxine 75 mcg - Menopausal state - (normal spontaneous vaginal delivery) 1987, 1989, 1993 1987: 8'12; 1989 9'3; 1993: 9'1 - Pap smear for cervical cancer screening 2016 - Plantar fasciitis - Psoriasis - TIA (transient ischemic attack) 1988 during first , diagnosed ASD, repaired at [facility] after delivery MEDS Current Outpatient Medications [...] SURGERY HX 1987 at (more content not included)...[facility]01-21-2021 Note HNO ID: [id number] Author: Jaylon (Bloominous Mario Service: ? Author Type: Index Clerk Type: Progress Notes Filed: 11/05/2020 10:36 AM [...] HEMATOLOGY: Negative for excessive bleeding, clots, bleeding disorders.[facility] noteNo assessment information availableWSelect Medical Special[facility], [facility] Work Phone: Evaluation note* Diagnosis Ascending aorta dilation (HCC) Thoracic aortic ectasia [facility] Diagnosis Abnormal hearing test- Primary Unspecified hearing loss [facility]* Diagnosis Routine general medical examination at a health care facility [facility] Diagnosis Ascending aorta dilation (HCC) Thoracic aortic ectasia [facility] Diagnosis Primary osteoarthritis of right knee Primary localized osteoarthrosis, lower leg [facility]* Diagnosis Routine general medical examination at [...] specified viral diseases [facility]* Diagnosis Ventral hernia without obstruction or gangrene- Primary Ventral hernia, unspecified, without mention of obstruction or gangrene [facility] Diagnosis Ventral hernia without obstruction or gangrene Ventral hernia, unspecified, without mention of obstruction or gangrene [facility]* Diagnosis Ventral hernia without obstruction or gangrene Ventral hernia, unspecified, without mention of obstruction or gangrene [facility] Tear of medial meniscus of right knee, current, unspecified tear type, subsequent encounter- Primary Primary osteoarthritis of right knee Primary localized osteoarthrosis, lower leg [facility]* Diagnosis Tear of medial meniscus of right knee, current, unspecified tear type, subsequent encounter Primary osteoarthritis of right knee Primary localized osteoarthrosis, lower leg [facility]* Diagnosis Complex tear of medial meniscus of right knee as current injury, subsequent encounter- Primary Primary osteoarthritis of right knee Primary localized osteoarthrosis, lower leg Complex tear of medial meniscus of right knee as current injury, subsequent encounter [facility] Diagnosis Pre-op evaluation- Primary Preoperative examination, [...] injury, subsequent encounter [facility]* Diagnosis Complex tear of medial meniscus of right knee as current injury, subsequent encounter- Primary Primary osteoarthritis of right knee Primary localized osteoarthrosis, lower leg [facility]* Diagnosis Complex tear of medial meniscus of right knee as current injury, subsequent encounter- Primary documented in this encounter [facility] note* Diagnosis Pre-op evaluation- Primary Preoperative [...] right knee- Primary [facility]* Diagnosis Pre-op evaluation- Primary Preoperative examination, [...] leg documented in this encounter [facility] note* Diagnosis Pre-op evaluation- Primary Preoperative [...] of lipoid metabolism [facility]* Diagnosis Pre-op evaluation- Primary Preoperative examination, [...] health care facility [facility]* Diagnosis Pre-op evaluation- Primary Preoperative examination, [...] unspecified cardiovascular conditions [facility]* Diagnosis Pre-op evaluation- Primary Preoperative examination, [...] health care facility [facility]* Diagnosis Pre-op evaluation- Primary Preoperative examination, [...] care facility- Primary documented in this encounter [facility] Discharge instructionsAmbulatory Orders* Plastic surgery Location: None Selected [employer] Work Phone: [facility] Diagnostic Procedure Only (Routine) - Closed Specialty Diagnoses / Procedures Referred By Contac t Referred To Contact XR IMAGING Diagnoses Primary osteoarthritis of right knee Procedures XR KNEE GENERAL 4V AP BOTH/PA BOTH/LAT/MERC RIGHT RADIOLOGIC EXAM KNEE COMPLETE 4/MORE VIEWS Allan Partida MD [address] [id number] [place] [address] Referral ID Status Reason Start Date Expiration Date V isits Requested Visits Authorized [id number] Closed Auto-Generate d Referral 08/01/2023 08/30/2024 1 1 [facility] for visit Narrative* MRI/CT (Routine) - Pending Review Specialty Diagnoses / Procedures Referred By Contac t Referred To Contact CT IMAGING Diagnoses Encounter for screening for cardiovascular disorders Procedures CT CALCIUM SCORING SELF PAY UNLISTED COMPUTED TOMOGRAPHY PROCEDURE David Hull MD [address] [id number] Phone: tel: fax: CT IMAGING [facility] Referral ID Status Reason Start Date Expiration Date Visits Requested Visits Authorized [id number] Pending Review Auto-Generat ed Referral 11/12/2024 12/12/2025 1 1 [facility] for visit Narrative* Diagnostic Procedure Only (Routine) - Closed Specialty Diagnoses / Procedures Referred By Contac t Referred To Contact XR IMAGING Diagnoses Routine general medical examination at a health care facility Procedures DXA-AXIAL SKELETON DXA BONE DENSITY STUDY 1/> SITES AXIAL SKEL David Hull MD [address] [place] [address] Phone: tel: fax: [place] [address] Referral ID Status Reason Start Date Expiration Date V isits Requested Visits Authorized [id number] Closed Auto-Generate d Referral 11/12/2024 12/12/2025 1 1 [facility] Chief Complaint Chief Complaint Description Start Date right foot pain Preliminary chief co mplaint data, not yet signed by the author as of Instructions Instruction Description Start Date CompletedPlease follow-up wi th Primary Care Physician or Clerk Stenographer for treatment or adjustment of medication regarding [...] been provided by the sender. Family History Relationship Condition Age at Onset Recorded Date/T joyce brother Alcoholism Unknown Malignant neoplasm of throat 60 mother Psoriatic arthritis Unknown Myocardial infarction Unknown Hypertension Unknown Malignant neoplasm of skin Unknown Malignant neoplasm of lung 92 Cardiac disease 65 sister Malignant melanoma Unknown father Hypertension Unknown History of Present Illness There may be information available, but it has not been provided by the sender. Summary Purpose Reason for Referral Specialty Diagnoses / Procedures Referred By Santana smith Referred To Contact CT IMAGING Diagnoses Disorder of arteries and arterioles (HCC) Ascending aorta dilation (HCC) Procedures CTA CHEST (GATED) W IVCON CT ANGIOGRAPHY CHEST W/CONTRAST/NONCONTRAST Allan Partida MD [address] [place] [address] [address] [facility] [address] [address] Referral ID Status Reason Start Date Expiration Date Visits Requested Visits Authorized [id number] Pending Review Auto-Generat ed Referral 3 08/24/2024 1 1 Specialty Diagnoses / Procedures Referred By Santana smith Referred To Contact General Surgery Diagnoses Ventral hernia without obstruction or gangrene Procedures CONSULT TO GENERAL SURGERY OFFICE/OUTPATIENT NEW HIGH MDM 60-74 MINUTES Allan Partida MD [address] [place] [address] Referral ID Status Reason Start Date Expiration Date Visits Requested Visits Authorized [id number] Authorized PCP Requested Referral 3 07/31/2024 1 1 Specialty Diagnoses / Procedures Referred By Contac t Referred To Contact Orthopedics Diagnoses Primary osteoarthritis of right knee Bursitis of both hips, unspecified bursa Procedures CONSULT PANEL TO ORTHOPAEDICS OFFICE/OUTPATIENT [facility] 60-74 MINUTES Allan Partida MD [address] [place] [address] Referral ID Status Reason Start Date Expiration Date Visits Requested Visits Authorized [id number] Authorized PCP Requested Referral 3 07/31/2024 1 1 Specialty Diagnoses / Procedures Referred By Contac t Referred To Contact XR IMAGING Diagnoses Primary osteoarthritis of right knee Procedures XR KNEE GENERAL 4V AP BOTH/PA BOTH/LAT/MERC RIGHT RADIOLOGIC EXAM KNEE COMPLETE 4/MORE VIEWS Allan Partida MD [address] [phone] X[facility] [place] [address] Referral ID Status Reason Start Date Expiration Date V isits Requested Visits Authorized [id number] Closed Auto-Generate d Referral 08/01/2023 08/30/2024 1 1 Specialty Diagnoses / Procedures Referred By Contac t Referred To Contact CT IMAGING Diagnoses Ventral hernia without obstruction or gangrene Procedures CT ABD/PEL WO IVCON CT ABD & PELVIS W/O CONTRAST Roxi Baig, DRAWER IN STITCH BONDING MACHINE.CASING RUNNER [address] [place], [place] [phone] [address] [facility] [address] [place] [address] Referral ID Status Reason Start Date Expiration Date Visits Requested Visits Authorized [id number] Pending Review Auto-Generat ed Referral 3 09/27/2024 1 1 Referral ID Status Reason Start Date Expiration Date Visits Requested Visits Authorized [id number] Pending Review Auto-Genera lilliam Referral Patient Cleared [...] MRI ANY JT LOWER EXTREM W/O CONTRAST Avi Sharp MD [address] [place] [address] [place] [address] Referral ID Status Reason Start Date Expiration Date Visits Requested Visits Authorized [id number] Pending Review Auto-Generat ed Referral 12/18/2023 01/16/2025 1 1 Chief Complaint and Reason for Visit Chief Complaint Admit Date EORDERS March 19, 2025 11:19 am 6 m March 21, 2025 8:53a m Chief Complaint Admit Date EORDERS March 19, 2025 11:19 am 6 m March 21, 2025 8:53a m Chronic neck pain March 24, 2025 10:25 am Reason for Visit Admit Date Health care maintenance March 21, 2025 8 :53am Hyperlipidemia March 21, 2025 8:53a m Hypertension March 21, 2025 8:53a m Hypothyroidism March 21, 2025 8:53a m Localized swelling on left hand March 8:53am Neck pain March 21, 2025 8:53a m Additional Source Comments Reason for Visit (unrecogniz ed section and content) Reason Comments Radiology Mammogram Specialty Diagnoses / Procedures Referred By Santana smith Referred To Contact BR IMAGING Diagnoses Routine general medical examination at a health care facility Procedures KATE SCREENING W RADHA SCREENING DIGITAL BREAST TOMOSYNTHESIS BI SCREENING MAMMOGRAPHY BI 2-VIEW BREAST INC CAD David Hull MD [address] [place] [address] Phone: tel: fax: BR IMAGING [address] [place] [address] Referral ID Status Reason Start Date Expiration Date V isits Requested Visits Authorized [id number] Closed Auto-Generate d Referral 11/12/2024 12/12/2025 1 [...] CT ANGIOGRAPHY CHEST W/CONTRAST/NONCONTRAST Allan Partida MD [address] [place] [address] [address] [facility] [address] [address] Referral ID Status Reason Start Date Expiration Date Visits Requested Visits Authorized [id number] Waiting for Online Response Auto-Genera lilliam Referral [...] KNEE COMPLETE 4/MORE VIEWS Allan Partida MD [address] [place] [address] X[facility] [address] [address] Referral ID Status Reason Start Date Expiration Date V isits Requested Visits Authorized [id number] Closed Auto-Generate d Referral 08/01/2023 08/30/2024 1 1 Reason Comments [facility] Physical Reason Comments Appointment Imaging Needed Prior to Appointment Reason Comments Radiology CT Specialty Diagnoses / Procedures Referred By Contac t Referred To Contact CT IMAGING Diagnoses Ventral hernia without obstruction or gangrene Procedures CT ABD/PEL WO IVCON CT ABD & PELVIS W/O CONTRAST Roxi Baig, DRAWER IN STITCH BONDING MACHINE.CASING RUNNER [address] [place] [address] [facility] [address] [address] Referral ID Status Reason Start Date Expiration Date Visits Requested Visits Authorized [id number] Pending Review Auto-Genera lilliam Referral Patient Cleared - Admin/Chair man/Directo r advise to proceed or did not respond 3 09/27/2024 2 2 Reason Comments Consult Specialty Diagnoses / Procedures Referred By Contac t Referred To Contact General Surgery Diagnoses Ventral hernia without obstruction or gangrene Procedures CONSULT TO GENERAL SURGERY OFFICE/OUTPATIENT [facility] MDM 60-74 MINUTES Allan Partida MD [address] [place] [address] Referral ID Status Reason Start Date Expiration Date V isits Requested Visits Authorized [id number] Closed PCP Requested Referral 08/01/2023 07/31/2024 1 [...] Avi Dobbins MD [address] [place] [address] [place] [address] Referral ID Status Reason Start Date Expiration Date V isits Requested Visits Authorized [id number] Closed Auto-Generate d Referral 12/19/2023 06/16/2024 1 [...] Refill Request Reason Comments Nurse Triage Call [facility] 12/17 Reason Onset Date Comments Physical INTM Immunizations 12/17/2024 Flu vaccination INFORMATION SOURCE (unrecogn ized section and content) DATE CREATED AUTHOR [facility]/2021 [facility] DATE CREATED AUTHOR AUTHOR'S ORGANIZ ATION 02/04/2021 [facility] DATE CREATED AUTHOR AUTHOR'S ORGANIZ ATION 02/04/2021 [facility] DATE CREATED AUTHOR AUTHOR'S ORGANIZ ATION 02/08/2024 [facility] DATE CREATED AUTHOR AUTHOR'S ORGANIZ ATION 12/28/2024 [facility] DATE CREATED AUTHOR AUTHOR'S ORGANIZ ATION 03/22/2025 [facility] Goals (unrecognized section and content) Goals may [...] Status: Active Member Role Status Dates Dr. Chester Valentine MD Primary Care Provider Active Team Status: Inactive Member Role Status Dates Dr. Chester Valentine MD Primary Care Provider Active Start: March 19, 2025 End: March 19, 2025 Dr. Chester Valentine MD Attending Provider Active Start: March 19, 2025 End: March 19, 2025 Dr. Chester Valentine MD Referring Provider Active Start: March 19, 2025 End: March 19, 2025 Team Status: Inactive Member Role Status Dates Dr. Chester Valentine MD Primary Care Provider Active Start: March 21, 2025 End: March 21, 2025 Dr. Chester Valentine MD Attending Provider Active Start: March 21, 2025 End: March 21, 2025 Dr. Chester Valentine MD Referring Provider Active Start: March 21, 2025 End: March 21, 2025 Team Status: Active Member Role Status Dates Dr. Chester Valentine MD Primary Care Provider Active Start: March 24, 2025 Dr. Chester Valentine MD Attending Provider Active Start: March 24, 2025 Dr. Chester Valentine MD Referring Provider Active Start: March 24, 2025 Team Status: Active Member Role Status Dates Dr. Leon Alvarado MD Family Provider Active Nubia Sage DO Primary Care Provider Active Team Status: Inactive Member Role Status Dates Nubia Sage DO Primary Care Provi chad, Attending Provider, Referring Provider Active Team Status: Inactive Member Role Status Dates Nubia Sage DO Primary Care Provider, Attending Provider Active [employer] Relationship Specialty Start Date End Date Leon Alvarado DO PCP - General Family Medicine 12/02/20 Leon Alvarado DO Referring Family Medicine 08/02/19 [employer] Buffer Relationship Specialty Start Date End Date Nubia Sage DO [address] [place] [address] PCP - General Family Medicine 08/01/23 Leon Alvarado DO Referring Family Medicine 08/02/19 [employer]isher [employer] Buffer Relationship Specialty Start Date End Date Nubia Sage DO [address] [place] [address] PCP - General Family Medicine 08/01/23 Leon Alvarado DO Referring Family Medicine 08/02/19 [employer] Buffer Relationship Specialty Start Date End Date Nubia Sage DO [address] [place] [address] PCP - General Family Medicine 08/01/23 Leon Alvarado DO Referring Family Medicine 08/02/19 [employer]isher [employer] Buffer Relationship Specialty Start Date End Date Nubia Sage DO [address] [place] [address] PCP - General Family Medicine 08/01/23 Leon Alvarado DO Referring Family Medicine 08/02/19 [employer]isher [employer] Buffer Relationship Specialty Start Date End Date Nubia Sage DO [address] [place] [address] PCP - General Family Medicine 08/01/23 Leon Alvarado DO Referring Family Medicine 08/02/19 [employer]isher [employer] Buffer Relationship Specialty Start Date End Date Nubia Sage DO [address] [facility] [address] [place] [address] PCP - General Family Medicine 08/01/23 Leon Alvarado DO Referring Family Medicine 08/02/19 [employer]isher [employer] Buffer Relationship Specialty Start Date End Date Nubia Sage DO [address] [facility] [address] [place] [address] PCP - General Family Medicine 08/01/23 Leon Alvarado DO Referring Family Medicine 08/02/19 Polisher And Buffer Relationship Specialty Start Date End Date Nubia Sage DO [address] [facility] [address] [place] [address] PCP - General Family Medicine 08/01/23 Leon Alvarado DO Referring Family Medicine 08/02/19 Polisher And Buffer Relationship Specialty Start Date End Date Nubia Sage DO [address] [facility] [address] [place] [address] PCP - General Family Medicine 08/01/23 Leon Alvarado DO Referring Family Medicine 08/02/19 Polisher And Buffer Relationship Specialty Start Date End Date Nubia Sage DO [address] [facility] [address] [place] [address] PCP - General Family Medicine 08/01/23 Leon Alvarado DO Referring Family Medicine 08/02/19 Polisher And Buffer Relationship Specialty Start Date End Date Nubia Sage DO [address] [facility] [address] [place] [address] PCP - General Family Medicine 08/01/23 Leon Alvarado DO Referring Family Medicine 08/02/19 [employer]isher [employer] Buffer Relationship Specialty Start Date End Date Nubia Sage DO [address] [facility] [address] [place] [address] PCP - General Family Medicine 08/01/23 Leon Alvarado DO Referring Family Medicine 08/02/19 [employer]isher [employer] Buffer Relationship Specialty Start Date End Date Nubia Sage DO [address] [facility] [address] [place] [address] PCP - General Family Medicine 08/01/23 Leon Alvarado DO Referring Family Medicine 08/02/19 [employer]isher [employer] Buffer Relationship Specialty Start Date End Date Nubia Sage DO [address] [place] [address] PCP - General Family Medicine 08/01/23 Leon Alvarado DO Referring Family Medicine 08/02/19 Polisher [employer] Buffer Relationship Specialty Start Date End Date Nubia Sage DO [address] [place] [address] PCP - General Family Medicine 08/01/23 Leon Alvarado DO Referring Family Medicine 08/02/19 Polisher And Buffer Relationship Specialty Start Date End Date Nubia Sage DO [address] [place] [address] PCP - General Family Medicine 08/01/23 Leon Alvarado DO Referring Family Medicine 08/02/19 Polisher And Buffer Relationship Specialty Start Date End Date Nubia Sage DO [address] [place] [address] PCP - General Family Medicine 08/01/23 Leon Alvarado DO Referring Family Medicine 08/02/19 Polisher [employer] Buffer Relationship Specialty Start Date End Date Nubia Sage DO [address] [place] [address] PCP - General Family Medicine 08/01/23 Leon Alvarado DO Referring Family Medicine 08/02/19 Polisher [employer] Buffer Relationship Specialty Start Date End Date Nubia Sage DO PCP - General Family Medicine 08/01/23 Leon Alvarado DO Referring Family Medicine 08/02/19 Pol[employer] Buffer Relationship Specialty Start Date End Date Nubia Sage DO PCP - General Family Medicine 08/01/23 Leon Alvarado DO Referring Family Medicine 08/02/19 [employer] Buffer Relationship Specialty Start Date End Date Nubia Sage DO PCP - General Family Medicine 08/01/23 Leon Alvarado DO Referring Family Medicine 08/02/19 [employer] Buffer Relationship Specialty Start Date End Date Nubia Sage DO PCP - General Family Medicine 08/01/23 Leon Alvarado DO Referring Family Medicine 08/02/19 [employer] Buffer Relationship Specialty Start Date End Date Nubia Sage DO PCP - General Family Medicine 08/01/23 Leon Alvarado DO Referring Family Medicine 08/02/19 [employer] Buffer Relationship Specialty Start Date End Date Nubia Sage PCP - General Family Medicine 08/01/23 Leon Alvarado DO Referring Family Medicine 08/02/19 [employer] Relationship Specialty Start Date End Date Alona Nubiamaximino AldanaDO PCP - General Family Medicine 08/01/23 Leon Alvarado DO Referring Family Medicine 08/02/19 Team Status: Active Member Role Status Dates Dr. Chester Valentine MD Primary Care Provider Active Team Status: Active Member Role Status Dates Dr. Chester Valentine MD Primary Care Provider Active Start: March 19, 2025 Dr. Chester Valentine MD Attending Provider Active Start: March 19, 2025 Dr. Chester Valentine MD Referring Provider Active Start: March 19, 2025 Team Status: Inactive Member Role Status Dates Dr. Chester Valentine MD Primary Care Provider Active Start: March 21, 2025 End: March 21, 2025 Dr. Chester Valentine MD Attending Provider Active Start: March 21, 2025 End: March 21, 2025 Dr. Chester Valentine MD Referring Provider Active Start: March 21, 2025 End: March 21, 2025 Team Status: Inactive Member Role Status Dates Dr. Chester Valentine MD Primary Care Provider Active Start: March 19, 2025 End: March 19, 2025 Dr. Chester Valentine MD Attending Provider Active Start: March 19, 2025 End: March 19, 2025 Dr. Chester Valentine MD Referring Provider Active Start: March 19, 2025 End: March 19, 2025 Team Status: Active Member Role Status Dates Dr. Chester Valentine MD Primary Care Provider Active Start: March 24, 2025 Dr. Chester Valentine MD Attending Provider Active Start: March 24, 2025 Dr. Chester Valentine MD Referring Provider Active Start: March 24, 2025 Source Comments (unrecognize d section and content) In the event this informatio n is protected by the Federal Confidentiality of Alcohol and Drug Abuse Patient Records regulations: The Federal rules restrict any use of the information to criminally investigate or prosecute any alcohol or drug abuse patient.[facility] the event this information is protected by the Federal Confidentiality of Alcohol and Drug Abuse Patient Records regulations: The Federal rules restrict any use of the information to criminally investigate or prosecute any alcohol or drug abuse patient.[facility] SystemIn the event this information is protected by the Federal Confidentiality of Alcohol and Drug Abuse Patient Records regulations: The Federal rules restrict any use of the information to criminally investigate or prosecute any alcohol or drug abuse patient.[facility] SystemIn the event this information is protected by the Federal Confidentiality of Alcohol and Drug Abuse Patient Records regulations: The Federal rules restrict any use of the information to criminally investigate or prosecute any alcohol or drug abuse patient.[facility] SystemIn the event this information is protected by the Federal Confidentiality of Alcohol and Drug Abuse Patient Records regulations: The Federal rules restrict any use of the information to criminally investigate or prosecute any alcohol or drug abuse patient.[facility] SystemIn the event this information is protected by the Federal Confidentiality of Alcohol and Drug Abuse Patient Records regulations: The Federal rules restrict any use of the information to criminally investigate or prosecute any alcohol or drug abuse patient.[facility] SystemIn the event this information is protected by the Federal Confidentiality of Alcohol and Drug Abuse Patient Records regulations: The Federal rules restrict any use of the information to criminally investigate or prosecute any alcohol or drug abuse patient.[facility] SystemIn the event this information is protected by the Federal Confidentiality of Alcohol and Drug Abuse Patient Records regulations: The Federal rules restrict any use of the information to criminally investigate or prosecute any alcohol or drug abuse patient.[facility] SystemIn the event this information is protected by the Federal Confidentiality of Alcohol and Drug Abuse Patient Records regulations: The Federal rules restrict any use of the information to criminally investigate or prosecute any alcohol or drug abuse patient.[facility] SystemIn the event this information is protected by the Federal Confidentiality of Alcohol and Drug Abuse Patient Records regulations: The Federal rules restrict any use of the information to criminally investigate or prosecute any alcohol or drug abuse patient.[facility] SystemIn the event this information is protected by the Federal Confidentiality of Alcohol and Drug Abuse Patient Records regulations: The Federal rules restrict any use of the information to criminally investigate or prosecute any alcohol or drug abuse patient.[facility] SystemIn the event this information is protected by the Federal Confidentiality of Alcohol and Drug Abuse Patient Records regulations: The Federal rules restrict any use of the information to criminally investigate or prosecute any alcohol or drug abuse patient.[facility] SystemIn the event this information is protected by the Federal Confidentiality of Alcohol and Drug Abuse Patient Records regulations: The Federal rules restrict any use of the information to criminally investigate or prosecute any alcohol or drug abuse patient.[facility] SystemIn the event this information is protected by the Federal Confidentiality of Alcohol and Drug Abuse Patient Records regulations: The Federal rules restrict any use of the information to criminally investigate or prosecute any alcohol or drug abuse patient.[facility] SystemIn the event this information is protected by the Federal Confidentiality of Alcohol and Drug Abuse Patient Records regulations: The Federal rules restrict any use of the information to criminally investigate or prosecute any alcohol or drug abuse patient.[facility] SystemIn the event this information is protected by the Federal Confidentiality of Alcohol and Drug Abuse Patient Records regulations: The Federal rules restrict any use of the information to criminally investigate or prosecute any alcohol or drug abuse patient.[facility] SystemIn the event this information is protected by the Federal Confidentiality of Alcohol and Drug Abuse Patient Records regulations: The Federal rules restrict any use of the information to criminally investigate or prosecute any alcohol or drug abuse patient.[facility] SystemIn the event this information is protected by the Federal Confidentiality of Alcohol and Drug Abuse Patient Records regulations: The Federal rules restrict any use of the information to criminally investigate or prosecute any alcohol or drug abuse patient.[facility] SystemIn the event this information is protected by the Federal Confidentiality of Alcohol and Drug Abuse Patient Records regulations: The Federal rules restrict any use of the information to criminally investigate or prosecute any alcohol or drug abuse patient.[facility] SystemIn the event this information is protected by the Federal Confidentiality of Alcohol and Drug Abuse Patient Records regulations: The Federal rules restrict any use of the information to criminally investigate or prosecute any alcohol or drug abuse patient.[facility] SystemIn the event this information is protected by the Federal Confidentiality of Alcohol and Drug Abuse Patient Records regulations: The Federal rules restrict any use of the information to criminally investigate or prosecute any alcohol or drug abuse patient.[facility] SystemIn the event this information is protected by the Federal Confidentiality of Alcohol and Drug Abuse Patient Records regulations: The Federal rules restrict any use of the information to criminally investigate or prosecute any alcohol or drug abuse patient.[facility] SystemIn the event this information is protected by the Federal Confidentiality of Alcohol and Drug Abuse Patient Records regulations: The Federal rules restrict any use of the information to criminally investigate or prosecute any alcohol or drug abuse patient.[facility] SystemIn the event this information is protected by the Federal Confidentiality of Alcohol and Drug Abuse Patient Records regulations: The Federal rules restrict any use of the information to criminally investigate or prosecute any alcohol or drug abuse patient.[facility] SystemIn the event this information is protected by the Federal Confidentiality of Alcohol and Drug Abuse Patient Records regulations: The Federal rules restrict any use of the information to criminally investigate or prosecute any alcohol or drug abuse patient.[facility] SystemIn the event this information is protected by the Federal Confidentiality of Alcohol and Drug Abuse Patient Records regulations: The Federal rules restrict any use of the information to criminally investigate or prosecute any alcohol or drug abuse patient.[facility] SystemIn the event this information is protected by the Federal Confidentiality of Alcohol and Drug Abuse Patient Records regulations: The Federal rules restrict any use of the information to criminally investigate or prosecute any alcohol or drug abuse patient.[facility] SystemIn the event this information is protected by the Federal Confidentiality of Alcohol and Drug Abuse Patient Records regulations: The Federal rules restrict any use of the information to criminally investigate or prosecute any alcohol or drug abuse patient.[facility] SystemIn the event this information is protected by the Federal Confidentiality of Alcohol and Drug Abuse Patient Records regulations: The Federal rules restrict any use of the information to criminally investigate or prosecute any alcohol or drug abuse patient.[facility] FOR RECORDS PERTAINING TO PATIENTS WHO ARE [...] BE BASED ON THE PRIMARY CLINICAL RECORDS. [facility]. provides no warranty or guarantee of the accuracy or completeness of information in this document.
== END | disposition home or self-care (01) ==
LOC: MTRAD 10:26
PROVIDERS: PCP Internal Medicine; Referring Provider Internal Medicine; Visit Provider Internal Medicine
DX: M54.2 Cervicalgia (principal); G89.29 Other chronic pain
CPT/HCPCS: 72040

== ENCOUNTER 2025-04-30 13:00 | Outpatient (RCR) | payer MEDICARE, SELFPAY ==
--- NOTE | 2025-03-31 16:03 | HP.PTEVAL ---
Patient's Visit Information Visit Information Visit Information: JOSH HUFFMAN is a 64 year old F referred to Physical Therapy by Dr. Chester Valentine MD with a diagnosis of CERVICAL DDD. Date of Evaluation: 03/31/25 Physical Therapist: Namrata Colon PT, Cert MDT Visit Plan Frequency: 2-3x /Week Duration: 4-6 Weeks Plan: Scapular Strengthening and B Pec/UT/Levator/Scalene Stretching to help reduce stress on Cervical Spine with Daily Activities. US at 1.3 W/CM2 100% to B Neck Musculature in Sitting. STM. Cervical Tx testing. Instruction in Proper Posture Control, Ergonomics with ADL's and Appropriate Activity Modifications. HEP Instructions. Subjective Subjective: Work/Leisure: RETIRED. 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 Present symptoms: SUSIE NECK PAIN L>R AND NECK STIFFNESS. PATIENT DENIES SUSIE UE SX'S. Present since: A COUPLE YEARS AGO Getting Better, Getting Worse or Staying the Same: GETTING WORSE Pain Scale: Worst - 6/10 Least - 2/10 Currently: 5/10 Commenced as a result of: NO APPARENT REASON OTHER THAN ARTHRITIS Symptoms at onset: NECK PAIN AND STIFFNESS Worse: TURNING HEAD SUSIE L>R, BENDING HEAD SIDE TO SIDE, SOMETIMES LYING IN CERTAIN POSITIONS BUT NOT SURE WHICH ONES. Better: HEAT Disturbed sleep: YES Previous history/Previous treatment: NO NECK SURGERY, INJECTIONS, CHIROPRACTIC OR OTHER EXCEPT BRIEF CHAIR MASSAGE WITH NE. This episode: NONE Dizziness: NO Tinnitus: NO Nausea: NO Shortness of Breath: NO Difficulty Swallowing: NO Gait: NORMAL Accidents: NO Unexplained weight loss: NO Imaging: RECENT NECK X-RAYS - SHOWING DDD PER PATIENT REPORT - 03/24/25: FINDINGS: There are no compression fractures. There is loss of the normal cervical lordosis. There is degenerative disc disease C4-5 through C6-7 with narrowing of the intervertebral disc spaces and marginal osteophytes. There is multilevel facet arthropathy. There is degenerative grade 1 anterolisthesis of C4 on C5. RAD/Cerv Spine 2 or 3 Views IMPRESSION: 1. Degenerative disc disease with cervical spasm. 2. Multilevel facet arthropathy with degenerative anterolisthesis of C4 on C5. PMH/Recent major surgery: Dupuytren's contracture - ORTHO CONSULT PENDING. JANUARY 2024 R KNEE SCOPE. OPEN HEART SX AGE 27. OTHER: DIFFICULTY LOOKING L WHEN DRIVING. NOTICING STARTING TO NEED TO TURN WHOLE BODY TO LOOK LEFT. GOING TO [employer] END OF APRIL AND HOPING TO GET MORE NECK MOBILITY. Objective Objective: Sitting Posture/Standing Posture: FH. RSH'S. Active Correction of posture: GOOD Other Observations: INDEP GAIT AND TRANSFERS. Sensory deficit: SUSIE UE LIGHT TOUCH SENSATION GROSSLY INTACT AND SYMMETRICAL ROM deficit: SUSIE UE'S WFL. L HAND NOT TESTED DUE TO PAIN AND UPCOMING ORTHO CONSULT. Motor deficit: SUSIE UE'S GROSSLY 5/5 EXCEPT L HAND NT. R HAND DOMINANT WITH A R CHECKROOM ATTENDANT STRENGTH OF 43 LBS. PATIENT REPORTS SHE JUST GOT DONE DOING A LOT OF WEEDING. Cervical Mvmt Loss: Flex: NIL Pro: NIL Ext: MOD Ret: MOD RSB: LILIBETH LSB: LILIBETH R Rot: MOD L Rot: LILIBETH Postural strength: FAIR Palpation: INCREASED MUSCLE TONE SUSIE POSTERIOR CERVICAL MUSCULATURE. NO ACUTE CERVICAL OR SHLD TENDERNESS. TENDERNESS. Balance/Special Test Scores Oswestry Neck Score: 4 Goals Goal 1:: DECREASE C/O NECK PAIN BY AT LEAST 50% TO EASE ADL'S. Goal Time Frame: 4-6 Weeks Goal 2:: IMPROVE CERVICAL ROM ALL PLANES TO EASE ADL'S. Goal Time Frame: 4-6 Weeks Goal 3:: INSTRUCT IN PROPHYLAXIS Goal Time Frame: 4-6 Weeks Rehabilitation Potential Physical Therapy Diagnosis: POSTURAL AND NECK STIFFNESS AND WEAKNESS. Rehabilitation Potential: Good Anticipated Interventions Patient/Client Instruction: Educate patient on: Condition, Plan of Care and Risk Factors For the Purpose of:: To improve self management Therapeutic Exercise to Include: Strength training, Body mechanics, Postural training, Flexibilty training, Neuromotor development and Scapular Strength/Stabilization For the Purpose of:: To decrease pain, To improve muscle performance and motor function, To increase tolerance to activity/condition/position and To improve ability of physical actions for home/community/work/leisure Manual Therapy Techniques to Include: Trigger point massage, Mobilization and Soft tissue mobilization For the Purpose of:: To decrease pain, To improve nutrient delivery to tissue and To decrease soft tissue restriction Ultrasound (thermal/non thermal): Yes For the Purpose of:: To decrease pain and To improve nutrient delivery to tissue Text: Thank you for the opportunity to evaluate your patient. For Medicare and Medicare HMO plans, please review the plan of care and approve it. It will need to be FAXED BACK to us at [phone] for Medicare purposes. For Medicare only, by signing this I certify the plan of care. Please let me know if there are questions or concerns regarding this plan of care. Physician Signature: Date:
--- NOTE | 2025-04-30 14:13 | HP.PTDCSUM ---
Discharge Summary D/C summary: It has been my pleasure to treat JOSH HUFFMAN referred by Dr. Chester Valentine MD, with the diagnosis of CERVICAL DDD for a total of 9 visit(s). Discharge Date: 04/30/25 Please see the following information for a summary of their discharge status. Subjective Subjective: PATIENT STATES HER NECK FEELS ALMOST 100% BETTER TURNING TO THE RIGHT AND ABOUT 75% BETTER TURNING TO THE LEFT. IT DOES FEEL SO MUCH BETTER. SHE REPORTS BEING PLEASED WITH BEING ABLE TO TURN HER HEAD FURTHER TO LEFT BEFORE SHE FEELS PAIN AND NOT FEELING MUCH PAIN. THIS IS ESPECIALLY NOTICEABLE PULLING OUT OF HER DRIVEWAY. SHE STATES SHE HAS DETERMINED FOR SURE SINCE LAST VISIT THAT HER INTERMITTENT HAND TINGLING IS NOT RELATED TO HER NECK AND DIRECTLY RELATED TO HER HAND USE. Pain L NECK PAIN: Pain Intensity (Out of 10): 2 R NECK PAIN: Pain Intensity (Out of 10): 1 Overall Improvement % Improvement: 83 Objective Objective/Function: PATIENT WAS SEEN TODAY FOR ASSESSMENT OF PROGRESS TOWARD THE SET PT GOALS, HEP CHECK, HEP PROGRESSION AND ASSESSMENT OF READINESS FOR DISCHARGE. THIS PATIENT HAS MADE EXCELLENT PROGRESS WITH PT AND IS APPROPRIATE FOR AND AGREEABLE TO DISCHARGE. Goals Goal 1:: DECREASE C/O NECK PAIN BY AT LEAST 50% TO EASE ADL'S. Goal Progress: Goal Met Goal 2:: IMPROVE CERVICAL ROM ALL PLANES TO EASE ADL'S. Goal Progress: Goal Met Goal 3:: INSTRUCT IN PROPHYLAXIS Goal Progress: Goal Met Plan Plan: D/C TO INDEP EX. PATIENT AGREEABLE. D/C Information d/c sentence: If there are questions or concerns regarding this patient's physical therapy, please feel free to call me at [phone]. Thank you for the referral of this patient. Sincerely, Namrata Colon, PT, Cert MDT Balance/Gait/Functional tests Balance/Special Test Scores Oswestry Neck Score: 4 Improvement % Improvement: 83
== END 2025-04-30 19:00 | disposition home or self-care (01) ==
LOC: PT 13:00
PROVIDERS: PCP Internal Medicine; Referring Provider Internal Medicine; Visit Provider Internal Medicine
DX: M50.30 Other cervical disc degeneration, unspecified cervical region (principal); M54.2 Cervicalgia
CPT/HCPCS: 97035; 97162; 97530

== ENCOUNTER → 2025-06-18 | Outpatient (CLI) | payer MEDICARE, SELFPAY ==
[2025-06-18 13:05] LABS: AST(SGOT) 24 U/L (<=31); Alanine Aminotransfer ALT/SGPT 12 U/L (<=34); Albumin, Serum 4.0 g/dL (3.4-4.8); Alkaline Phosphatase 84 U/L (35-104); Anion Gap 14 (5-15); BUN 15 mg/dL (4-19); BUN/Creat Ratio 18.8 RATIO (10-20); CRP 53.00 mg/L (0.0-3.0); Calcium,Total 9.9 mg/dL (7.6-11.0); Carbon Dioxide 21.9 mmol/L (21.0-32.0); Chloride 96 mmol/L (98-108); Cholesterol 215 mg/dL (<=200); Globulin 3.5 g/dL (2.2-4.2); Glucose 113 mg/dL (70-99); Low Density Lipoprotein Calc. 121 mg/dL; Potassium 4.3 mmol/L (3.3-5.1); Triglycerides 68 mg/dL; Very Low Density Lipoprotein 14 mg/dL (5-40); cholesterol:hdl ratio screen 2.68
[2025-06-19 09:31] LABS: Hematocrit 38.3 % (37-47); Hemoglobin 12.8 g/dL (12.0-15.0); Immature Granulocytes Count 0.040 X10^3/uL (0.0-0.0); Mean Corp Hgb Conc 33.4 g/dL (32-36); Mean Corpuscular Volume 98.5 fL (81-99); Mean Platelet Vol. 11.0 fl (6.2-12.0); NRBC Flagged by Analyzer 0.3 % (0-5); Platelet Count 366 K/mm3 (150-450); RBC Distribution Width CV 13.2 % (11.6-14.6); RBC Distribution Width SD 47.3 fl (35.1-43.9); Red Blood Count 3.89 M/mm3 (4.2-5.4); White Blood Count 7.5 K/mm3 (4.4-11.0)
[2025-06-20 15:08] LABS: ANTINUCLEAR ANTIBODIES DIRECT Negative (Negative)
== END | disposition home or self-care (01) ==
PROVIDERS: PCP Internal Medicine; Referring Provider Internal Medicine; Visit Provider Internal Medicine
DX: E78.5 Hyperlipidemia, unspecified (principal); M19.90 Unspecified osteoarthritis, unspecified site; I10 Essential (primary) hypertension
CPT/HCPCS: 36415; 80053; 80061; 83695; 85025; 85652; 86038; 86140; 86200; 86431

== ENCOUNTER → 2025-07-28 | Outpatient (CLI) | payer MEDICARE, SELFPAY ==
[2025-07-28 15:19] LABS: Hematocrit 37.6 % (37-47); Hemoglobin 12.8 g/dL (12.0-15.0); Immature Granulocytes Count 0.040 X10^3/uL (0.0-0.0); Mean Corp Hgb Conc 34.0 g/dL (32-36); Mean Corpuscular Volume 94.9 fL (81-99); Mean Platelet Vol. 9.6 fl (6.2-12.0); NRBC Flagged by Analyzer 0 % (0-5); POSITIVE MORPHOLOGY YES; Platelet Count 402 K/mm3 (150-450); RBC Distribution Width CV 13.5 % (11.6-14.6); RBC Distribution Width SD 47.4 fl (35.1-43.9); Red Blood Count 3.96 M/mm3 (4.2-5.4); White Blood Count 6.3 K/mm3 (4.4-11.0)
[2025-07-28 15:32] LABS: Differential Indicated SCAN CRITERIA MET
[2025-07-28 20:12] LABS: Differential Comment SCANNED; Dohle Bodies 3+
[2025-07-29 10:26] LABS: CRP 19.20 mg/L (0.0-3.0)
[2025-07-30 14:09] LABS: ANTINUCLEAR ANTIBODIES DIRECT Negative (Negative)
== END | disposition home or self-care (01) ==
LOC: MTLAB 11:24
PROVIDERS: PCP Internal Medicine; Referring Provider Internal Medicine; Visit Provider Internal Medicine
DX: E03.9 Hypothyroidism, unspecified (principal); M19.90 Unspecified osteoarthritis, unspecified site; R79.82 Elevated C-reactive protein (CRP)
CPT/HCPCS: 36415; 85025; 85652; 86038; 86140; 86225

== ENCOUNTER 2025-09-04 13:55 | Emergency (ER) | payer MEDICARE, SELFPAY ==
[2025-09-04 13:55] VITALS: BP 151/83; PULSE 70; RESP 16; TEMP 36.8; O2SAT 99; BMI 33.0
--- NOTE | 2025-09-04 14:31 | CT_ITS ---
PROCEDURE: ABDOMEN/PELVIS W IV CONT ONLY N/A REASON FOR EXAM: CONSTIPATION TECHNIQUE: Procedure Code: [id number] Modality: CT Procedure: ABDOMEN/PELVIS W IV CONT ONLY Coronal and Sagittal reconstruction series were provided. CONTRAST: Isovue-300 VOLUME: 100 mL One or more dose reduction techniques were used (e.g., Automated exposure control, adjustment of the mA and/or kV according to patient size, use of iterative reconstruction technique. RADIATION DOSE SUMMARY: CTDlvol: 18.3 mGy DLP: 1359.09 mGycm COMPARISON: None FINDINGS: Lung bases: The lung bases are clear. Liver: Diffuse fatty infiltration. 1 cm cyst in the dome of the right lobe of the liver. Gallbladder: Multiple gallstones. Spleen: The spleen is not seen. Tiny splenules are present. Most likely secondary to prior splenectomy. Pancreas: Normal size without evidence of mass surrounding inflammation or ductal dilation. Adrenals: Unremarkable Kidneys: Normal renal sizes. No hydronephrosis. Bladder: Unremarkable Reproductive Organs: Unremarkable Bowel: Mild degree of sigmoid diverticulitis with increased markings in the surrounding peritoneal fat suggestive of diverticulitis. Minimal amount of free fluid in the right side of the cul-de-sac. Appendix: Unremarkable Lymph nodes: Unremarkable. Vasculature: Mild diffuse atherosclerotic calcifications are noted. Peritoneum / Retroperitoneum: Unremarkable Bones: Unremarkable. CT/Abdomen/Pelvis W IV Cont ONLY IMPRESSION: Fatty infiltration of the liver. Multiple gallstones. Status post splenectomy. Mild degree of sigmoid diverticulitis with a small amount of free fluid in the right side of the pelvis. Reading Location: [id number]
--- NOTE | 2025-09-04 14:41 | EX.ED.DYSGE1 ---
HPI History of Present Illness Chief Complaint: Constipation Narrative Narrative: Chief complaint and HPI: 65-year-old female with past medical history of HTN, HLD, CAD, hypothyroidism presents for evaluation of constipation. Patient states for the past several days she has been constipated. Taking senna and docusate without any improvement. did a home enema today without any results. Patient states for the past 3 days she has not passed any gas. 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 She denies any fever, chills, shortness of breath, chest pain, nausea, vomiting, dysuria. States that she has been having some lower abdominal cramping. Review of systems: See HPI Medications: As listed on the chart Allergies: As listed on the chart PFSH: Per chart Vital signs: As listed on the chart. Reviewed. Physical exam: Gen: A&O x3, NAD Head: Normocephalic, atraumatic Eyes: No sclera icterus, conjunctiva clear ENT: Moist mucous membranes CV: RRR, no murmurs Resp: Lungs CTA BL, no w/r/c GI: Abd soft, non-distended, non-tender, no r/r/g Rectal: Normal external examination. No evidence of hemorrhoids or fissures. Normal tone and sensation. No masses, fluctuance, or tenderness. No pain out of proportion. No stool felt in the rectal vault or gloved finger. Musc: Full ROM, no deformity Skin: Warm, dry Neuro: Alert, oriented, grossly intact, sensation intact Psych: Cooperative, appropriate mood and affect [facility] Medical History Elevated C-reactive protein Dupuytren's contracture of left hand Degenerative disc disease, cervical Localized swelling on left hand Neck pain Headache History of COVID-19 Health care maintenance Hyperlipidemia Hypertension Hypothyroidism Encounter for vitamin deficiency screening Plantar fasciitis of right foot Residual atrial septal defect following repair Wrist fracture High cholesterol Heart disease Gall stones Cataracts, bilateral Arthritis Allergies Bone fracture Home Medications ?Medication ?Instructions ?Recorded ?Last Taken ?Type aspirin 81 mg tablet,delayed 81 mg PO DAILY 03/15/24 Unknown History release cyanocobalamin (vitamin B-12) 500 250 mcg PO DAILY 03/15/24 Unknown History mcg tablet diclofenac sodium 1 % topical gel 2 g topical ONCE 03/15/24 Unknown History (Voltaren Arthritis Pain) milk thistle 1,000 mg PO 03/15/24 Unknown History lisinopril 10 1 tab PO DAILY #90 tabs 04/10/25 Unknown Rx mg-hydrochlorothiazide 12.5 mg tablet (Zestoretic) cholecalciferol (vitamin D3) 50 50 mcg PO QDAY 07/30/25 Unknown History mcg (2,000 unit) capsule (Vitamin D3) psyllium husk 3.4 gram/5.8 gram 2.5 g PO DAILY PRN constipation 07/30/25 Unknown History oral powder (Metamucil [facility] Fiber) sulfasalazine 500 mg tablet 1,000 mg (2 x 500 mg) PO BID 1 08/05/25 Unknown Rx month #120 tabs levothyroxine 112 mcg tablet 112 mcg PO .five times weekly #180 08/18/25 Unknown Rx tabs levothyroxine 100 mcg tablet 100 mcg PO .twice week #90 tabs 08/19/25 Unknown Rx metoprolol succinate 100 mg 100 mg PO DAILY #90 tabs 08/20/25 Unknown Rx tablet,extended release 24 hr (Toprol XL) ondansetron 4 mg disintegrating 4 mg PO Q8H PRN nausea and 08/28/25 Unknown Rx tablet vomiting #90 tabs amoxicillin 875 mg-potassium 1 tab PO BID 10 days #20 tabs 09/04/25 Unknown Rx clavulanate 125 mg tablet rosuvastatin 10 mg tablet 10 mg PO DAILY 09/04/25 Unknown History Allergy/AdvReac Type Severity Reaction Status Date / Time No Known Allergies Allergy Verified 09/04/25 13:58 Family History Brother Alcoholism Throat cancer, Onset Age: 60 Mother Psoriatic arthritis Myocardial infarction Hypertension Skin cancer Lung cancer, Onset Age: 92 Heart disease, Onset Age: 65 Brother No problems noted. Sister Melanoma Father Hypertension Surgical History H/O arthroscopy of right knee History of open heart surgery Status post left foot surgery Hx of tonsillectomy H/O splenectomy Social History adopted: No household members: spouse current occupational status: employed history of recent travel: No Smoking Status: Former smoker Smokeless tobacco user: other alcohol intake: current details: scotts- 6 shots weekly what type of physical activity do you participate in: walking and swimming frequency: 3-4 times per week seatbelt use: always do you feel safe at home: Yes EXAM Physical Exam Const Vital Signs: 09/04/25 13:55 09/04/25 15:55 09/04/25 17:00 Temperature 98.2 F Temperature Source Oral Pulse Rate 70 66 88 Respiratory Rate 16 12 14 Blood Pressure 151/83 H 155/74 H 150/78 H Blood Pressure Mean 105 101 102 Pulse Ox 99 98 98 Oxygen Delivery Method Room Air Room Air Room Air MDM MDM MDM Narrative Medical decision making narrative: 65-year-old female with past medical history of HTN, HLD, CAD, hypothyroidism presents for evaluation of constipation. Patient states for the past several days she has been constipated. Taking senna and docusate without any improvement. did a home enema today without any results. Patient states for the past 3 days she has not passed any gas. Differential diagnosis includes but is not limited to constipation, electrolyte abnormality, dehydration, diverticulitis, obstruction. NS bolus ordered. Laboratory workup ordered including CT abdomen and pelvis. CBC without leukocytosis or anemia. Platelets unremarkable. CMP shows hyponatremia at 125 without KOTA. No transaminitis. Lipase unremarkable. UA negative for UTI. CT of the abdomen shows fatty filtration of the liver. Multiple gallstones. Status post splenectomy. Mild degree of sigmoid diverticulitis with a small amount of free fluid in the right side the pelvis. Constipated. Patient stool culture is positive, likely from her diverticulitis. Will obtain repeat BMP after fluids to assess hyponatremia. Patient states at baseline she has hyponatremia although does not know her baseline level. On previous labs she is in the 130s. Will give patient's first dose of Augmentin here for her diverticulitis. Since she has not had a bowel movement in several days and currently not passing gas, will reach out to general surgery to make sure no further recommendations are needed. Dr. Hawley is currently in the OR. She cannot make any further recommendations over the phone therefore she will speak with me after surgery. Patient awaiting fluids to be finished at this point. I spoke with the general surgeon. Okay for MiraLAX. Recommend the patient discharging home on a liquid diet until passing more than one bowel movement. No enema. Patient confirmed understanding of the plan. Repeat BMP shows improvement in hyponatremia at 127. Patient tolerating p.o. intake. We did discuss admission for fluids versus discharging home on the liquid diet and staying up with hydration. Patient elected to discharge home. I do think is appropriate. Will give order to have BMP repeated in 2 days to monitor her hyponatremia. She confirmed understanding. Return precautions explained. Patient will discharge home. Impression: 1. Acute uncomplicated diverticulitis 2. Constipation 3. Acute hyponatremia on chronic hyponatremia Lab Data Labs: Laboratory Results - last 24 hr 09/04/25 09/04/25 09/04/25 14:49 15:01 16:40 WBC 7.2 RBC 3.74 L Hgb 12.2 Hct 35.8 L MCV 95.7 MCH 32.6 H MCHC 34.1 RDW Std Deviation 46.8 H RDW Coeff of Nat 13.2 Plt Count 340 MPV 8.7 Immature Gran % (Auto) 0.300 Neut % (Auto) 59.2 Lymph % (Auto) 24.0 Callahan % (Auto) 15.3 H Eos % (Auto) 0.6 Baso % (Auto) 0.6 Absolute Neuts (auto) 4.3 Absolute Lymphs (auto) 1.72 Nucleated RBC % 0 Sodium 125 L 127 L Potassium 3.8 4.3 Chloride 90 L 92 L Carbon Dioxide 22.8 23.8 Anion Gap 13 12 BUN 13 12 Creatinine 0.62 L 0.61 L Estim Creat Clear Calc 86.57 86.57 Est GFR (MDRD) Non-Af 98 98 BUN/Creatinine Ratio 20.6 H 19.3 Glucose 103 H 97 Calcium 9.5 9.3 Total Bilirubin 0.44 AST 24 ALT 12 Alkaline Phosphatase 60 Total Protein 7.3 Albumin 4.1 Globulin 3.2 Albumin/Globulin Ratio 1.3 Lipase 47 Urine Color Yellow Urine Clarity Clear Urine pH 7.0 Ur Specific [place] 1.005 Urine Protein Negative Urine Glucose (UA) Normal Urine Ketones Negative Urine Occult Blood Negative Urine Nitrite Negative Urine Bilirubin Negative Urine Urobilinogen Normal Ur Leukocyte Esterase Negative Urine RBC 0 SEEN Urine WBC 0-5 SEEN Ur Squamous Epith Cells 0 SEEN Urine Bacteria 0 SEEN Urine Mucus 0 SEEN Radiography Diagnostic Testing: Clinical Impression(s) from Imaging Studies Abdomen/Pelvis CT 09/04/25 14:31 IMPRESSION: Fatty infiltration of the liver. Multiple gallstones. Status post splenectomy. Mild degree of sigmoid diverticulitis with a small amount of free fluid in the right side of the pelvis. Reading Location: [facility] Discharge Plan Triage Chief Complaint: Constipation ED Provider: Lenin Reeves Dx/Rx/DC Orders Clinical Impression: Diverticulitis, Constipation Instructions: Diverticulitis Dc, ED Clear Liquid Diet Prescriptions: New amoxicillin-pot clavulanate 875-125 mg tablet 1 tab PO BID 10 Days Qty: 20 0RF No Action aspirin 81 mg tablet,delayed release (DR/EC) 81 mg PO DAILY diclofenac sodium [Voltaren Arthritis Pain] 1 % gel 2 g topical ONCE Patient Comments: four times daily milk thistle 1,000 mg PO Rx Instructions: takes daily includes Dandelion Root 50 mg cyanocobalamin (vitamin B-12) 500 mcg tablet 250 mcg PO DAILY Metamucil [facility] Fiber 3.4 gram/5.8 gram powder 2.5 g PO DAILY PRN (Reason: constipation) cholecalciferol (vitamin D3) [Vitamin D3] 50 mcg (2,000 unit) capsule 50 mcg PO QDAY rosuvastatin 10 mg tablet 10 mg PO DAILY lisinopril-hydrochlorothiazide [Zestoretic] 10-12.5 mg tablet 1 tab PO DAILY Qty: 90 1RF sulfasalazine 500 mg tablet 1,000 mg PO BID 30 Days Qty: 120 1RF Rx Instructions: give with food (meal/snack) levothyroxine 112 mcg tablet 112 mcg PO .five times weekly Qty: 180 1RF Rx Instructions: takes 112 mcg five times weekly monday - Monday levothyroxine 100 mcg tablet 100 mcg PO .twice week Qty: 90 1RF Rx Instructions: 100 mcg orally; twice weekly Monday and Monday metoprolol succinate [Toprol XL] 100 mg tablet extended release 24 hr 100 mg PO DAILY Qty: 90 1RF ondansetron 4 mg tablet,disintegrating 4 mg PO Q8H PRN (Reason: nausea and vomiting) Qty: 90 1RF Other Ambulatory Orders: Basic Metabolic Profile (BMP) (Routine) Timeframe: 2 Days Facility: [facility] - Location: Laboratory [facility]: Chester Valentine Referrals: Chester Valentine MD [Primary Care Provider, Internal Medicine] - 3-5 Days Shannan Hawley MD [Med Staff - Active Staff, General Surgery] - 3-5 Days Activity Restrictions/Additional Instructions: Liquid diet until passing bowel movements. Afterwards okay to advance to soft diet and then regular diet. Okay for MiraLAX to help with constipation. No enemas. Return back to ED if symptoms change or worsen. Take all of your antibiotics, you received your first dose here in the emergency room. Follow-up with primary care physician and general surgery. You were given an order to have your sodium rechecked in 2 days. Print Language: Mozambican Disposition Disposition: Home, Self Care
[2025-09-04] MEDS: 0.9% Normal Saline (1000mL) 1,000 ML 999 ML IV (14:42)
[2025-09-04 15:01] LABS: Hematocrit 35.8 % (37-47); Hemoglobin 12.2 g/dL (12.0-15.0); Immature Granulocytes Count 0.020 X10^3/uL (0.0-0.0); Mean Corp Hgb Conc 34.1 g/dL (32-36); Mean Corpuscular Volume 95.7 fL (81-99); Mean Platelet Vol. 8.7 fl (6.2-12.0); NRBC Flagged by Analyzer 0 % (0-5); Platelet Count 340 K/mm3 (150-450); RBC Distribution Width CV 13.2 % (11.6-14.6); RBC Distribution Width SD 46.8 fl (35.1-43.9); Red Blood Count 3.74 M/mm3 (4.2-5.4); White Blood Count 7.2 K/mm3 (4.4-11.0)
[2025-09-04 15:10] LABS: Mucous, Urine 0 SEEN /hpf (<or=2+); Red Blood Cells-Urine 0 SEEN /hpf (0-5); Squamous Epithelial Cells - UA 0 SEEN /hpf (5-10)
[2025-09-04 15:12] LABS: Color, Urine Yellow (Yellow); Glucose, Dipstick Normal (Normal); Ketone-Dipstick Negative (Negative); Leukocyte Esterase-Dipstick Negative /ul (Negative); Nitrite-Dipstick Negative (Negative); Occult Blood-Urine Negative /ul (Negative); Protein-Dipstick Negative (Negative); Specific Gravity, Urine 1.005 (1.002-1.030); Urine Bilirubin Dipstick Negative (Negative)
[2025-09-04 15:40] LABS: AST(SGOT) 24 U/L (<=31); Alanine Aminotransfer ALT/SGPT 12 U/L (<=34); Albumin, Serum 4.1 g/dL (3.4-4.8); Alkaline Phosphatase 60 U/L (35-104); Anion Gap 13 (5-15); BUN 13 mg/dL (4-19); BUN/Creat Ratio 20.6 RATIO (10-20); Calcium,Total 9.5 mg/dL (7.6-11.0); Carbon Dioxide 22.8 mmol/L (21.0-32.0); Chloride 90 mmol/L (98-108); Estimated Creatinine Clearance 86.57 ml/min (50-250); Globulin 3.2 g/dL (2.2-4.2); Glucose 103 mg/dL (70-99); Lipase 47 U/L (13-75); Potassium 3.8 mmol/L (3.3-5.1)
[2025-09-04 15:55] VITALS: BP 155/74; PULSE 66; RESP 12; O2SAT 98
[2025-09-04 17:00] VITALS: BP 150/78; PULSE 88; RESP 14; O2SAT 98
[2025-09-04 17:25] LABS: Anion Gap 12 (5-15); BUN 12 mg/dL (4-19); BUN/Creat Ratio 19.3 RATIO (10-20); Calcium,Total 9.3 mg/dL (7.6-11.0); Carbon Dioxide 23.8 mmol/L (21.0-32.0); Chloride 92 mmol/L (98-108); Estimated Creatinine Clearance 86.57 ml/min (50-250); Glucose 97 mg/dL (70-99); Potassium 4.3 mmol/L (3.3-5.1)
[2025-09-04 17:40] VITALS: BP 118/75; PULSE 76; RESP 14; TEMP 36.6; O2SAT 96
== END 2025-09-04 17:45 | disposition home or self-care (01) ==
PROVIDERS: Emergency Provider Surgery; PCP Internal Medicine; Visit Provider Surgery
DX: K57.32 Diverticulitis of large intestine without perforation or abscess without bleeding (principal); I25.10 Atherosclerotic heart disease of native coronary artery without angina pectoris; K76.0 Fatty (change of) liver, not elsewhere classified; I10 Essential (primary) hypertension; E78.00 Pure hypercholesterolemia, unspecified; K80.20 Calculus of gallbladder without cholecystitis without obstruction; Z87.891 Personal history of nicotine dependence; Z90.81 Acquired absence of spleen; E87.1 Hypo-osmolality and hyponatremia; E03.9 Hypothyroidism, unspecified; Z79.899 Other long term (current) drug therapy; K59.00 Constipation, unspecified
CPT/HCPCS: 74177; 80048; 80053; 81001; 82274; 83690; 85025; 96360; 96361; 99283; Q9967; A4216

== ENCOUNTER 2025-09-08 19:09 | Emergency (ER) | payer MEDICARE, SELFPAY ==
[2025-09-08 19:12] VITALS: BP 151/77; PULSE 81; RESP 16; TEMP 36.7; O2SAT 100; BMI 33.1
--- NOTE | 2025-09-08 19:53 | EKG12_ITS ---
Test Reason : DYSRHYTHMIA Blood Pressure : */* mmHG Vent. Rate : 73 BPM Atrial Rate : 73 BPM P-R Int : 200 ms QRS Dur : 92 ms QT Int : 422 ms P-R-T Axes : 72 26 59 degrees QTcB Int : 464 ms Normal sinus rhythm Normal ECG Confirmed by ABDOUL WILLIAMSON, STEFANI ([id number]), primer expeditor and drier LUKE MARTINEZ ([id number]) on 09/10/2025 9:17:25 AM Referred By: Confirmed By: STEFANI SCHREIBER MD
--- OUTSIDE RECORDS SUMMARY | 2025-09-08 19:54 | XMS RPT_ITS | CCD ---
Author Organization [facility] Care Team Providers Care Crane Ladle Person Name Role Phone Spencer Rodriguez MD Unavailable JOSE MIGUEL HATHAWAY Attending Unavailable RIVASJOSE MIGUEL ROACH Primary Care Unavailable RIVASJOSE MIGUEL MONSON Admitting Unavailable RIVASJOSE MIGUEL MONSON Attending Unavailable JOSE MIGUEL HATHAWAY Primary Care Unavailable JOSE MIGUEL HATHAWAY Admitting Unavailable ChristianoLeon denise DO Unavailable ChristianoLeon valentine DO Primary Care Provider Nubia Sage DO Primary Care Provider Nubia Sage DO Primary Care Provider AVI DOBBINS Admitting Unavailable AVI DOBBINS Attending Unavailable NUBIA SAGE Primary Care Unavailable Nubia Sage DO Primary Care Provider Nubia Sage DO Primary Care Provider Nubia Sage DO Primary Care Provider Dr. Chester Valentine MD Primary Care Provider Dr. Chester Valentine MD Attending Provider Dr. Chester Valentine MD Referring Provider NUBIA SAGE Primary Care UnavailDAVID Underwood Referring Unavailable NUBIA SAGE Primary Care UnavailNUBIA Silveira Primary Care UnavailDAVID Underwood Referring Unavailable NUBIA SAGE Primary Care UnavailDAVID Underwood Attending Unavailable ALONA, NUBIA KATYA Primary Care Unavailabl e SEBALLOS, DAVID J Referring Unavailable ALONA, NUBIA KATYA Primary Care Unavailabl e SEBALLOS, DAVID J Referring Unavailable ALONA, NUBIA KATYA Primary Care Unavailabl e SEBALLOS, DAVID J Referring Unavailable ALONA, NUBIA KATYA Primary Care Unavailabl e SEBALLOS, DAVID J Referring Unavailable ALONA, NUBIA KATYA Primary Care Unavailabl e SEBALLOS, DAVID J Referring Unavailable AVI DOBBINS Attending Unavailable ALONA, NUBIA KATYA Primary Care Unavailabl AVI Perkins Attending Unavailable ALONA, NUBIA KATYA Primary Care Unavailabl e ALONA, NUBIA [facility] Primary Care UnavailAVI Barnhart Attending Unavailable AVI DOBBINS Referring Unavailable AVI DOBBINS Referring Unavailable ALONA, NUBIA KATYA Primary Care Unavailabl e ALONA, NUBIA KATYA Primary Care Unavailabl e SEBALLOS, DAVID J Referring Unavailable ALONA, NUBIA [facility] Primary Care Unavailabl e SEBALLOS, DAVID J Referring Unavailable ALONA, NUBIA [facility] Primary Care Unavailabl e SEBALLOS, DAVID J Referring Unavailable Serge WILLIAMSON, Dr. Briggs Primary Care Physician Dr. Chester Valentine MD Attending Physician [phone] Oleghe, Efewongbe Attending Unavailable Oleghe, Efewongbe Referring Unavailable Oleghe, Efewongbe Primary Care Unavailable Oleghe, Efewongbe Primary Care Unavailable Oleghe, Efewongbe Referring Unavailable Oleghe, Efewongbe Attending Unavailable Alfredo Grace Attending Unavailable Oleghe, Efewongbe Referring Unavailable Oleghe, Efewongbe Primary Care Unavailable Oleghe, Efewongbe Referring Unavailable Oleghe, Efewongbe Primary Care Unavailable Oleghe, Efewongbe Attending Unavailable Oleghe, Efewongbe Referring Unavailable Oleghe, Efewongbe Primary Care Unavailable Oleghe, Efewongbe Attending Unavailable Oleghe, Efewongbe Attending Unavailable Oleghe, Efewongbe [...] Attending Unavailable Oleghe, Efewongbe Primary Care Unavailable Jailyn Caro Attending Unava ilable Oleghe, Efewongbe Attending Unavailable Oleghe, Efewongbe Primary Care Unavailable Oleghe, Efewongbe Referring Unavailable Oleghe , Dr. Briggs Primary Care Physician Serge WILLIAMSON, Dr. Briggs Attending Physician [phone] Serge WILLIAMSON, Dr. Briggs Referring Provider Jailyn Caro MA Attending Physicia n Unavailable Alfredo Grace Attending Physician [phone] Allergies Allergy Classification Reported Allergen(s) Allergy Type Date of Onset Reaction(s) Facility (1 source) rosuvastatin Drug Allergy 07-30-2025 [facility] (1 source) rosuvastatin Drug Allergy 07-30-2025 syncope [facility] Medications Current Medications Medication Drug Class(es) Dates Sig (Normalized) Sig (Original) aspirin 81 mg delayed release oral tablet (20 sources) Platelet Aggregation Inhibitor, Nonsteroidal Anti-inflammatory Drug Start: 03-10-2020 take 1 tablet by mouth once daily Aspirin 81 mg tablet,delayed release (/EC) Active 81 mg PO DAILY March 15, 2024 12:00am Complies with drug therapy Start: 05-02-2019 ASPIRIN 81 MG TBEC 1 tablet daily ASPIRIN [id number] Delia Puente LPN Comment on above: Take 1 tablet by karl th once daily. atorvastatin 10 mg oral tablet (2 sources) HMG-CoA Reductase Inhibitor Start: 09-04-20 25 take 1 tablet by mouth at bedtime Atorvastatin (Lipitor) 10 mg tablet Active 10 mg PO AT BEDTIME 12 01June 19, 2025 12:00am Complies with drug therapy cholecalciferol 0.05 mg oral capsule (1 source) Vitamin D Start: 07-30-20 25 take 1 capsule by mouth once daily Cholecalciferol (Vitamin D3) (Vitamin D3) 50 mcg (2,000 unit) capsule Active 50 ug PO daily July 30, 2025 12:00am Complies with drug therapy cholecalciferol, vitamin D3, (VITAMIN D3 ORAL) (20 [...] on above: Take 1,000 mcg by mo uth once daily. Take 500 mcg by mout h once daily. diclofenac sodium 0.01 mg/mg topical gel (20 sources) Nonsteroidal Anti-inflammatory Drug Start: 03-15-2024 Diclofenac Sodium (Voltaren Arthritis Pain) 1 % gel Active 2 g TOPICAL ONCE March 15, 2024 12:00am Complies with drug therapy Start: 12-08-2021 apply 2 g topically four [...] takes daily includes Dandelion Root 50 mg Complies with drug therapy Start: 03-15-2024 take 50 mg by mouth once daily Start: 03-15-2024 take 50 mg by mouth once daily milk thistle Active 1000 mg PO March 15, 2024 12:00am takes daily includes Dandelion Root 50 mg Start: 05-02-2019 MILK THISTLE 1 000 MG CAPS 1 capsule daily MILK THISTLE [id number] Delia Puente LPN take 50 mg by [...] psyllium 3400 mg powder for oral suspension (8 sources) Start: 03-15-2024 End: 07-30-2025 Psyllium Husk (Metamucil [facility] Fiber) 3.4 gram/5.8 gram powder Active 2.5 g PO DAILY as needed July 30, 2025 11:43am Complies with drug therapy psyllium husk (METAMUCIL ORAL) (20 sources) take 5.8 g by mouth once daily psyllium husk (METAMUCIL ORAL) Take 5.8 g by mouth once daily. Active take 5.8 g by mouth once daily p syllium husk (METAMUCIL ORAL) Take 5.8 g by mouth once daily. 0 Active Comment on above: Take 5.8 g by mouth once daily. sulfaSALAzine 500 mg oral tablet (4 sources) Aminosalicylate Start: 08-05-2025 take 1 tablet by mouth twice daily at mealtime Start: 07-01-2025 End: 08-05-2025 take 1 tablet by mouth twice daily at mealtime Sulfasalazine 500 mg tablet Discontinued 500 mg PO TWICE A DAY 60 1 July 29, 2025 12:33pm August 05, 2025 1:36pm give with food (meal/snack) vitamin b12 0.5 mg oral tablet (7 sources) Vitamin B12 Start: 03-15-2024 Cyanocobalamin (Vitamin B-12) 500 mcg tablet Active 250 ug PO DAILY March 15, 2024 12:00am Complies with drug therapy Start: 03-15-2024 Cyanocobalamin (Vitamin B-12) 500 mcg tablet Active 250 ug PO DAILY March 15, 2024 12:00am Completed/Discontinued Medications Medication Drug Class(es) Dates Sig (Normalized) Sig (Original) celecoxib 200 mg oral capsule (20 sources) Nonsteroidal Anti-inflammatory Drug Start: 12-17-2024 take 1 capsule by mouth once daily celecoxib (CELEBREX) 200 mg capsule Take 1 capsule by mouth once daily. 12/17/2024 Active Start: 06-03-2024 End: 08-05-2025 take 1 capsule by mouth twice daily as needed for pain Celecoxib 200 mg capsule Discontinued 200 mg PO TWICE A DAY as needed for pain 60 2 February 11, 2025 1:41pm June 03, 2025 8:23am cyclobenzaprine hydrochloride 10 mg oral tablet (6 sources) Muscle Relaxant Start: 03-24-2025 End: 07-30-2025 take 1 tablet by mouth twice daily as needed for muscle spasms Cyclobenzaprine 10 mg tablet Discontinued 10 mg PO TWICE A DAY as needed for muscle spasm 60 1 March 24, 2025 12:00am July 30, 2025 11:41am hydroCHLOROthiazide 12.5 mg / lisinopril 10 mg oral tablet (20 sources) Thiazide Diuretic, Angiotensin Converting Enzyme Inhibitor Start: 05-02-2019 End: 04-10-2025 take 10-12.5 mg by mouth once daily Lisinopril-Hydrochl orothiazide (Zestoretic) 10-12.5 mg tablet Discontinued 1 {tbl} PO DAILY 90 0 July 23, 2024 4:45pm September 18, 2024 [...] daily at bedtime. iodine supplement kelp oral (7 sources) Start: 03-15-20 End: 03-21-20 take 325 ug by mouth once daily at bedtime kelp oral Discontinued 325 ug PO March 15, 2024 12:00am March 21, 2025 9:09am po daily at bedtime, iodine supplement KELP TABS (1 source) Start: 05-02-20 19 KELP TABS 1 tablet daily (33 mg) KELP TABS [id number] Delia Puente LPN levothyroxine sodium 0.112 mg oral tablet (20 sources) l-Thyroxine Start: 07-09-20 End: 06-12-20 24 take 1 tablet by mouth five times weekly Levothyroxine 112 mcg tablet Discontinued 112 ug PO .five times weekly 60 1 May 10, 2024 2:48pm June 12, 2024 [...] MCG TABS 1 tablet daily LEVOTHYROXINE SODIUM [id number] Delia Puente LPN Comment on above: Take [...] week. Monday-Monday Take 1 tablet by karl th two times a week. Mon & Monday Take 1 tablet by karl th five times a week. Monday-Monday 10 ml [...] once daily. methylPREDNISolone 4 mg oral tablet (10 sources) Corticosteroid Start: 06-18-2025 End: 07-30-2025 take 1 tablet by mouth once Methylprednisolone (Medrol (Mushtaq)) 4 mg tablets,dose pack Discontinued 0 PO per package directions June 18, 2025 12:00am July 30, 2025 11:42am PO PER PKG DIR for 6 days Start: 10-21-2024 End: 03-21-2025 take 1 tablet [...] 24 hr Discontinued 100 mg PO DAILY 90 August 05, 2024 4:13pm February 20, 2025 1:17pm Comment on above: Take by mouth. Take 100 mg by mouth daily at bedtime. naproxen sodium 220 mg oral tablet (12 sources) Nonsteroidal Anti-inflammatory Drug Start: 05-02-2019 ALEVE 220 MG TABS 1 tablet twice daily NAPROXEN SODIUM [id number] Delia Puente LPN End: 09-18-2023 take 2 capsules by mouth [...] twice daily. Take 2 capsules by m outh once daily. 1 capsule in PM rosuvastatin calcium 10 mg oral tablet (12 sources) HMG-CoA Reductase Inhibitor Start: 12-18-19 End: 06-18-20 take 1 tablet by mouth once daily Rosuvastatin 10 mg tablet Discontinued 10 mg PO daily 90 1 March 21, 2025 12:00am June 18, 2025 8:51am tiZANidine 2 mg oral tablet (7 sources) Central alpha-2 Adrenergic Agonist Start: 10-21-19 End: 03-21-20 take 1 tablet by mouth three times daily as needed Tizanidine 2 mg tablet Discontinued 2 mg PO THREE TIMES A DAY as needed for muscle spasticity 60 0 October 21, 2024 1:00am March 21, 2025 [...] ea twice daily. APPLY TO AFFECTED AREA Vit D 2000 (7 sources) Start: 03-15-2024 End: 07-30-2025 Vit D 2000 Discontinued PO March 15, 2024 12:00am July 30, 2025 11:43am daily Start: 03-15-2024 Start: 03-15-2024 Vit D 1999 Act angelica PO March 15, 2024 12:00am daily Problems Active Problems Problem Classification Problem Date [...] Hypertensive disorder; Translations: [Essential (primary) hypertension] Onset: 06-18-2025 10-31-2019 Chronic Headache; including migraine (7 sources) Headache; Translations: [Headache] 10-21-2024 Episodic Headache; including migraine (1 source) Headache; including migraine; Translations: [Headache, unspecified] Onset: 11-13-2024 Immunizations and screening for infectious disease (3 sources) Vaccination needed; Translations: [Encounter for immunization] 08-01-2023 Episodic Joint disorders and dislocations; trauma-related (6 sources) Tear of medial meniscus of knee; Translations: [Other tear of medial meniscus, current injury, right knee, subsequent encounter] Onset: 02-07-2024 12-18-2023 Episodic Menopausal disorders (20 sources) Menopausal syndrome; Translations: [Menopausal and female climacteric states] 10-31-2019 Chronic Nutritional deficiencies (20 sources) Vitamin D deficiency; Translations: [Vitamin D deficiency, unspecified] Onset: 10-31-2019 08-01-2023 Chronic Osteoarthritis (20 sources) Osteoarthritis of foot joint; Translations: [Osteoarthritis [...] foot] 10-31-2019 Episodic Other connective tissue disease (4 sources) Pain of left hand; Translations: [Pain in left hand] 04-03-2025 Episodic Other connective tissue disease (1 source) Dupuytren's disease of palm; Translations: [Palmar fascial fibromatosis [Dupuytren]] 04-10-2025 Episodic Other connective tissue disease (1 source) Palmar fascial fibromatosis [Dupuytren]; Translations: [Dupuytren's disease of palm] Onset: 04-10-2025 Episodic Other connective tissue disease (1 source) Pain in left hand; Translations: [Left hand pain] Onset: 04-10-2025 Episodic Other connective tissue disease (4 sources) Dupuytren contracture of left palm; Translations: [Palmar fascial fibromatosis [Dupuytren]] 06-18-2025 Episodic Other infections; including parasitic (7 sources) Personal history of other infectious and [...] Onset: 10-16-2015 10-31-2019 Episodic Other skin disorders (13 sources) Localized swelling of left hand; Translations: [Localized swelling, mass and lump, left upper limb] 03-21-2025 Episodic Spondylosis; intervertebral disc disorders; other back problems (8 sources) Degeneration of cervical intervertebral disc; Translations: [Other cervical disc degeneration, unspecified cervical region] 03-24-2025 Chronic Thyroid disorders (20 sources) Hypothyroidism; Translations: [Hypothyroidism, unspecified] Onset: 08-01-2023 10-31-2019 Chronic Transient cerebral ischemia (20 sources) Transient cerebral ischemia; Translations: [Transient cerebral ischemic attack, unspecified] Onset: 10-16-1987 10-31-2019 Chronic Unclassified (11 sources) Localized swelling on left hand; Translations: [R22.32 - Localized swelling, mass and lump, left upper limb] Unclassified (4 sources) M19.90 - Unspecified osteoarthritis, unspecified site Past or Other Problems Problem Classification Problem Date Documented Da te Episodic/Chronic Diabetes mellitus without complication (20 sources) Prediabetes; Translations: [Prediabetes] Onset: 10-31-2019 08-01-2023 Episodic Other connective tissue disease (20 sources) Bilateral bursitis of hips; Translations: [Other bursitis of hip, right hip] Onset: 11-16-2021 08-01-2023 Episodic Other nutritional; endocrine; and metabolic disorders (20 sources) Blood urate raised; Translations: [Hyperuricemia without signs of inflammatory arthritis and tophaceous disease] Onset: 10-31-2019 08-01-2023 Episodic Other skin disorders (1 source) Localized swelling, mass and lump, left upper limb; Translations: [Localized swelling, mass and lump, left upper limb] Onset: 03-21-2025 Episodic Spondylosis; intervertebral disc disorders; other back problems (13 sources) Neck pain; Translations: [Cervicalgia] Onset: 03-28-2025 10-21-2024 Episodic Unclassified (1 source) Problem Unclassified (1 source) Patient encounter status 12-17-2024 Results Test Name Value Interpretation Reference Range Facility DORCAS w/ Reflex Mult Confirmon 08-04-2025 ANTI-DNA (DS)AB TNP Normal [facility] Comment on above: Performed By: #### L [id number], L101.9900 #### [facility] [address] [place], [place], [id number] ANTI-SS-A TNP Normal [facility] Comment on above: Performed By: #### L [id number], [id number] #### [facility] [address] [place], [address] ANTI-SS-B TNP Normal [facility] Comment on above: Performed By: #### L [id number], [id number] #### [facility] [address] [place], [address] Internal Medicine Office Vis paulina 07-30-2025 Internal Medicine Office Visit [facility] Internal Medicine [address] [place] [address] [place] [address] OFFICE VISIT Date of Service: 07/30/25 MR#: [id number] Acct: [id number] Name: JOSH HUFFMNA Rep #: [id number] : 1960 Provider: SAVANNAH Fontana Age/Sex: 65/F Location: [facility] [place] Status: Signed Intake Vital Signs 06/18/25 08:48 07/30/25 11:49 Height 5 ft 9 in 5 ft 9 in Weight: 218 lb 8 oz 220 lb BMI 32.2 32.5 BP 132/78 H 130/78 H Blood Pressure Location Lt brachial Lt brachial Position Sitting Sitting Respiration 16 16 Pulse 66 54 L Pulse Source Monitor Monitor Temp 97.8 F 97 F L Temp Source Temporal Temporal Pulse Oximetry (%) 99 97 Oxygen Delivery Method room air room air Intake Visit Reasons: 6 WEEK 07/02: Called. Left VM Chief Complaint: FU Local Announcer Required: No Is patient in pain?: No Allergies rosuvastatin Adverse Reaction (Severe, Verified 07/30/25 11:40) syncope Medications ???Medication ???Instructions ???Recorded ???Confirmed ???Type aspirin 81 mg tablet,delayed 81 mg PO DAILY 03/15/24 07/30/25 H istory release cyanocobalamin (vitamin B-12) 500 250 mcg PO DAILY 03/15/24 5 History mcg tablet diclofenac sodium 1 % topical gel 2 g topical ONCE 03/15/24 5 History (Voltaren Arthritis Pain) milk thistle 1,000 mg PO 03/15/24 07/30/25 Hist ory levothyroxine 100 mcg tablet 100 mcg PO .twice week #90 tabs 07/30/25 Rx levothyroxine 112 mcg tablet 112 mcg PO .five times weekly #180 06/12/24 07/30/25 Rx tabs metoprolol succinate 100 mg 100 mg PO DAILY #90 tabs 02/20/25 07/30/25 Rx tablet,extended release 24 hr (Toprol XL) lisinopril 10 1 tab PO DAILY #90 tabs 04/10/25 1 Rx mg-hydrochlorothiazide 12.5 mg tablet (Zestoretic) celecoxib 200 mg capsule 200 mg PO BID PRN pain #60 caps 07/30/25 Rx atorvastatin 10 mg tablet (Lipitor) 10 mg PO QHS #30 tabs 06/19/25 07/30/25 Rx sulfasalazine 500 mg tablet 500 mg PO BID #60 tabs 07/29/25 Rx cholecalciferol (vitamin D3) 50 50 mcg PO QDAY 07/30/25 07/30/25 H istory mcg (2,000 unit) capsule (Vitamin D3) psyllium husk 3.4 gram/5.8 gram 2.5 g PO DAILY PRN 07/30/25 History oral powder (Metamucil [facility] Fiber) Have you fallen in the past year?: No Nurse's Note: pt states that the sx's she was having have subsided w/ switching statins. She has some GI upset w/ the sulfasalazine however it is getting better. Pt unable to get into arthritis center until 09/2025. [facility] Medical History Elevated C-reactive protein Dupuytren's contracture of left hand Degenerative disc disease, cervical Localized swelling on left hand Neck pain [...] at home: Yes HPI HPI Chief Complaint: FU Details: JOSH HUFFMAN, is a 65 F who presents to the office today for f/u on her inflammatory conditions. She was started on Sulfasalazine approximately one month ago as she was not able to get an appt for rheumatology until September. So she has been taking the medication as directed including the celecoxib and occasional Tylenol. She states that she really has not seen much change at all in her symptoms. She states that her hands are still the worse but she also feels little in the knees and hips. She has to take her medication with food or else she gets nausea (more content not included)... Normal [facility] CRPon 07-29-2025 C-REACTIVE PROT 19.20 mg/L High 0.0-3.0 [facility] Comment on above: Performed By: #### L [id number], [id number] #### [facility] [address] [facility] [place], [place], [id number] Erythrocyte Sed Rateon 07-29 SED RATE 29 mm/hr Normal 0-30 [facility] Comment on above: Performed By: #### L [id number], [id number] #### [facility] [address] [facility]. [place], [place], [id number] Absolute lymphocyte countOrd ered By: Chester Valentine on 07-28-2025 Lymphocytes Auto (Unsp spec) [#/Vol] 1.66 10*3/uL 0.83-4.51 [facility] Absolute neutrophil countOrd ered By: Chester Valentine on 07-28-2025 Neutrophils (Bld) [#/Vol] 2.3 10*3/uL 2.0-7.7 [facility] Automated lymphocyte count a s percentage of total leukocytesOrdered By: Chester Krystynabritney on 07-28-2025 Lymphocytes/100 WBC Auto (Unsp spec) 26.3 % 19-41 [facility] Basophil percentageOrdered B y: Chester Valentine on 07-28-2025 Basophils/100 WBC (Bld) 0.9 % 0-1 [facility] Blood manual differential co mment interpretation (narrative result)Ordered By: Chester Valentine on 07-28-2025 Manual differential comment Geoff (Bld) [Interp] SCANNED [facility] CBC W/Diff, Automatedon 07-16 DOHLE BODIES 3+ Normal [facility] Comment on above: Performed By: #### L [id number], [id number] #### [facility] [address] [place], [address] PLT EST ADEQUATE Normal ADEQ [facility] Comment on above: Performed By: #### L [id number], [id number] #### [facility] [address] [place], [address] SMEAR COMMENT SCANNED Normal [facility] Comment on above: Performed By: #### L [id number], [id number] #### [facility] [address] [place], [address] Dohle bodies detectionOrdere d By: Myrnahinajosh Krystynabritney on 07-28-2025 Dohle body LM Ql (Bld) 3+ [facility] Eosinophil percentageOrdered By: Damirjosh Krystynabritney on 07-28-2025 Eosinophils/100 WBC (Bld) 21.4 % High 0-5 [facility] Erythrocyte distribution wid th ratioOrdered By: Lucíaantonettehinajosh Krystynabritney on 07-28-2025 Erythrocyte distribution width (RBC) [Ratio] 13.5 % 11.6-14.6 [facility] Erythrocyte distribution wid th standard deviationOrdered By: Lucíayang Krystynabritney on 07-28-2025 Erythrocyte distribution width (RBC) [Ratio] 47.4 fl High 35.1-43.9 [facility] Erythrocyte sedimentation ra teOrdered By: Chester Valentine on 07-28-2025 ESR (Bld) [Velocity] 29 mm/h 0-30 [facility] Hematocrit Auto (Bld) [Volum e fraction]Ordered By: Chester Valentine on 07-28-2025 Hematocrit (Bld) [Volume fraction] 37.6 % 37-47 [facility] Hemoglobin measurementOrdere d By: Chester Valentine on 07-28-2025 Hemoglobin (Bld) [Mass/Vol] 12.8 g/dL 12.0-15.0 [facility] Immature granulocytes/100 WB C Auto (Bld)Ordered By: antonettedeath valleyjosh Valentine on 07-28-2025 Immature granulocytes/100 WBC (Bld) 0.600 % 0.0-0.9 [facility] Comment on above: IG% - Immature Granu locytes (promyelocytes, myelocytes and metamyelocytes) > 1% indicates that a LEFT SHIFT is Present. MCV (mean corpuscular volume ) determinationOrdered By: Chester Valentine on 07-28-2025 MCV (RBC) [Entitic vol] 94.9 fL 81-99 [facility] Mean corpuscular hemoglobin (MCH) determinationOrdered By: Chester Valentine on 07-28-2025 MCH (RBC) [Entitic mass] 32.3 pg High 27.0-32.0 [facility] Mean corpuscular hemoglobin concentration (MCHC) determinationOrdered By: Chester Valentine on 07-28-2025 MCHC (RBC) [Mass/Vol] 34.0 g/dL 32-36 [facility] Mean platelet volume determi nationOrdered By: antonettedeath valleyjosh Valentine on 07-28-2025 Platelet mean volume (Bld) [Entitic vol] 9.6 fL 6.2-12.0 [facility] Monocyte percentageOrdered B y: Chester Valentine on 07-28-2025 Monocytes/100 WBC (Bld) 14.1 % High 0-10 [facility] Neutrophil percentageOrdered By: Chester Valentine on 07-28-2025 Neutrophils/100 WBC (Bld) 36.7 % Low 47-70 [facility] Nucleated red blood cell per centageOrdered By: Lucíaantonettehinajosh Douglasssenabritney on 07-28-2025 Nucleated RBC/100 WBC (Bld) [Ratio] 0 % 0-5 [facility] Platelet countOrdered By: Lucía luz marinajosh Valentine on 07-28-2025 Platelets (Bld) [#/Vol] 402 10*3/uL 150-450 [facility] Platelet estimateOrdered By: Myrnahinajosh Valentine on 07-28-2025 Platelets LM Ql (Bld) ADEQUATE ADEQ [facility] RBC Auto (Bld) [#/Vol]Ordere d By: Chester Rafatsenabritney on 07-28-2025 RBC (Bld) [#/Vol] 3.96 10*6/uL Low 4.2-5.4 [facility] Serum DNA double strand anti body assay (units/volume)Ordered By: Chester Valentine on 07-28-2025 DNA double strand Ab Qn (S) [facility] Comment on above: Test not performed Serum Scl-70 antibody assay (units/volume)Ordered By: Chester Valentine on 07-28-2025 SCL-70 extractable nuclear Ab Qn (S) [facility] Comment on above: Test not performed Serum or plasma C reactive p rotein measurement (mass/volume)Ordered By: Chester Valentine on 07-28-2025 CRP [Mass/Vol] 19.20 mg/L High 0.0-3.0 [facility] White blood cell (WBC) count Ordered By: Chester Valentine on 07-28-2025 WBC (Bld) [#/Vol] 6.3 10*3/uL 4.4-11.0 [facility] ANTINUCLEAR ANTIBODIES DIREC Ton 06-20-2025 DORCAS,DIRECT Negative Normal Negative [facility] Comment on above: Order Comment: CATHLEEN Tan ADD CBCD DORCAS TO BLOOD DRAWN 06/18/25 PER Result Comment: Perf ormed at: - [facility] [address] [id number] Machine Maintenance Technician: Kashmir Jimenez PhD, Phone: [phone] Performed By: #### L 501.6710, L101.9900 #### [facility] [address] [place], [address] CCP IgG Antibodieson 025 CCP IgG Ab. 7 units Normal 0-19 [facility] Comment on above: Order Comment: Test( s) 204307-Aamidzhqbxh (a)was developed and its performance characteristicsdetermined by [employer]. It has not been cleared or approvedby the Food and Drug Administration. Result Comment: Nega tive <20 Weak positive 20 - 39 Moderate positive 40 - 59 Strong positive >59 Performed at: [address] [id number] Machine Maintenance Technician: Kashmir Jimenez PhD, Phone: [phone] Performed By: #### L 501.6710, L101.9900 #### [facility] [address] [place], [address] Lipoprotein Aon 06-20-2025 Lipoprotein a [Moles/Vol] 234.9 nmol/L Abnormal <75.0 [facility] Comment on above: Order Comment: Test( s) 695697-Civhniuacew (a)was developed and its performance characteristicsdetermined by [facility]. It has not been cleared or approvedby the Food and Drug Administration. Result Comment: Resu lts confirmed on dilution. Note: Values greater than or equal to 75.0 nmol/L may indicate an independent risk factor for CHD, but must be evaluated with caution when applied to non- populations due to the influence of genetic factors on Lp(a) across ethnicities. Performed By: #### L 501.6710, L101.9900 #### [facility] [address] [place], [address] CBC W/Diff, Automatedon Absolute Lymph 1.63 X10 3/uL Normal 0.83-4.51 [facility] Comment on above: Order Comment: CATHLEEN Tan ADD CBCD DORCAS TO BLOOD DRAWN 06/18/25 PER Performed By: #### L 501.10, L101.9900 #### [facility] [address] [place], [address] Absolute Neut 4.5 X10 3/uL Normal 2.0-7.7 [facility] Comment on above: Order Comment: CATHLEEN Tan ADD CBCD DORCAS TO BLOOD DRAWN 06/18/25 PER Performed By: #### L .6709, L101.9900 #### [facility] [address] [place], [address] Basophils/100 WBC (Bld) 0.8 % Normal 0-1 [facility] Comment on above: Order Comment: CATHLEEN Tan ADD CBCD DORCAS TO BLOOD DRAWN 06/18/25 PER Performed By: #### L , L101.9900 #### [facility] [address] [place], [address] Eosinophils/100 WBC (Bld) 1.7 % Normal 0-5 [facility] Comment on above: Order Comment: CATHLEEN Tan ADD CBCD DORCAS TO BLOOD DRAWN 06/18/25 PER Performed By: #### L .6709, L101.9900 #### [facility] [address] [place], [address] Erythrocyte distribution width (RBC) [Ratio] 13.2 % Normal 11.6-14.6 [facility] Comment on above: Order Comment: CATHLEEN Tan ADD CBCD DORCAS TO BLOOD DRAWN 06/18/25 PER Performed By: #### L .6709, L101.9900 #### [facility] [address] [place], [address] Hematocrit (Bld) [Volume fraction] 38.3 % Normal 37-47 [facility] Comment on above: Order Comment: CATHLEEN Tan ADD CBCD DORCAS TO BLOOD DRAWN 06/18/25 PER Performed By: #### L .6710, L101.9900 #### [facility] [address] [place], [address] Hemoglobin (Bld) [Mass/Vol] 12.8 g/dL Normal 12.0-15.0 [facility] Comment on above: Order Comment: CATHLEEN Tan ADD CBCD DORCAS TO BLOOD DRAWN 06/18/25 PER Performed By: #### L 501.6710, L101.9900 #### [facility] [address] [place], [address] IG% 0.500 Normal 0.0-0.9 [facility] Comment on above: Order Comment: CATHLEEN Tan ADD CBCD DORCAS TO BLOOD DRAWN 06/18/25 PER Result Comment: IG% - Immature Granulocytes (promyelocytes, myelocytes and metamyelocytes) > 1% indicates that a LEFT SHIFT is Present. Performed By: #### L 501.6710, L101.9900 #### [facility] [address] [place], [address] Lymphocytes/100 WBC (Bld) 21.8 % Normal 19-41 [facility] Comment on above: Order Comment: CATHLEEN Tan ADD CBCD DORCAS TO BLOOD DRAWN 06/18/25 PER Performed By: #### L 501.6710, L101.9900 #### [facility] [address] [place], [address] MCH (RBC) [Entitic mass] 32.9 pg High 27.0-32.0 [facility] Comment on above: Order Comment: CATHLEEN Tan ADD CBCD DORCAS TO BLOOD DRAWN 06/18/25 PER Performed By: #### L 501.6710, L101.9900 #### [facility] [address] [place], [address] MCHC (RBC) [Mass/Vol] 33.4 g/dL Normal 32-36 [facility] Comment on above: Order Comment: CATHLEEN Tan ADD CBCD DORCAS TO BLOOD DRAWN 06/18/25 PER Performed By: #### L 501.6710, L101.9900 #### [facility] [address] [place], [address] MCV (RBC) [Entitic vol] 98.5 fL Normal 81-99 [facility] Comment on above: Order Comment: CATHLEEN Tan ADD CBCD DORCAS TO BLOOD DRAWN 06/18/25 PER Performed By: #### L 501.6709, L101.9900 #### [facility] [address] [place], [address] Monocytes/100 WBC (Bld) 14.4 % High 0-10 [facility] Comment on above: Order Comment: CATHLEEN Tan ADD CBCD DORCAS TO BLOOD DRAWN 06/18/25 PER Performed By: #### L 501.6709, L101.9900 #### [facility] [address] [place], [address] Neutrophils/100 WBC (Bld) 60.8 % Normal 47-70 [facility] Comment on above: Order Comment: CATHLEEN Tan ADD CBCD DORCAS TO BLOOD DRAWN 06/18/25 PER Performed By: #### L 501.6710, L101.9900 #### [facility] [address] [place], [address] Nucleated RBC (Bld) [#/Vol] 0.3 10*3/uL Normal 0-5 [facility] Comment on above: Order Comment: CATHLEEN Tan ADD CBCD DORCAS TO BLOOD DRAWN 06/18/25 PER Performed By: #### L 501.67, L101.9900 #### [facility] [address] [place], [address] Platelet mean volume (Bld) [Entitic vol] 11.0 fL Normal 6.2-12.0 [facility] Comment on above: Order Comment: CATHLEEN Tan ADD CBCD DORCAS TO BLOOD DRAWN 06/18/25 PER Performed By: #### L 501.6710, L101.9900 #### [facility] [address] [place], [address] Platelets (Bld) [#/Vol] 366 10*3/uL Normal 150-450 [facility] Comment on above: Order Comment: CATHLEEN Tan ADD CBCD DORCAS TO BLOOD DRAWN 06/18/25 PER Performed By: #### L 501.6710, L101.9900 #### [facility] [address] [place], [address] RBC (Bld) [#/Vol] 3.89 10*6/uL Low 4.2-5.4 [facility] Comment on above: Order Comment: CATHLEEN Tan ADD CBCD DORCAS TO BLOOD DRAWN 06/18/25 PER Performed By: #### L 501.6710, L101.9900 #### [facility] [address] [place], [address] RDW SD 47.3 fl High 35.1-43.9 [facility] Comment on above: Order Comment: CATHLEEN Tan ADD CBCD DORCAS TO BLOOD DRAWN 06/18/25 PER Performed By: #### L 501.6710, L101.9900 #### [facility] [address] [place], [address] WBC (Bld) [#/Vol] 7.5 10*3/uL Normal 4.4-11.0 [facility] Comment on above: Order Comment: CATHLEEN Tan ADD CBCD DORCAS TO BLOOD DRAWN 06/18/25 PER Performed By: #### L 501.6710, L101.9900 #### [facility] [address] [place], [address] Absolute lymphocyte countOrd ered By: Chester Valentine on 06-18-2025 Lymphocytes Auto (Unsp spec) [#/Vol] 1.63 10*3/uL 0.83-4.51 [facility] Absolute neutrophil countOrd ered By: Chester Valentine on 06-18-2025 Neutrophils (Bld) [#/Vol] 4.5 10*3/uL 2.0-7.7 [facility] Anion gap in Serum or Plasma Ordered By: Chester Valentine on 06-18-2025 Anion gap [Moles/Vol] 14 mmol/L 5-15 [facility] Automated lymphocyte count a s percentage of total leukocytesOrdered By: yang Valentine on 06-18-2025 Lymphocytes/100 WBC Auto (Unsp spec) 21.8 % 19-41 [facility] BUN/creatinine ratioOrdered By: antonettedeath valleyjosh Valentine on 06-18-2025 Urea nitrogen/Creatinine [Mass ratio] 18.8 mg/mg 10-20 [facility] Basophil percentageOrdered B y: Chester Valentine on 06-18-2025 Basophils/100 WBC (Bld) 0.8 % 0-1 [facility] Bilirubin, totalOrdered By: yang Valentine on 06-18-2025 Bilirubin [Mass/Vol] 0.60 mg/dL 0.00-1.30 [facility] CRPon 06-18-2025 C-REACTIVE PROT 53.00 mg/L High 0.0-3.0 [facility] Comment on above: Performed By: #### L 100.0100, L3100.5475, L500.4050, L500.4100, L501.6710, L3400.4600, L505.7010, L4600.0100, L101.9900 #### [facility] [address] [place], [place], [id number] Calculated very low density lipoprotein (VLDL) cholesterol measurementOrdered By: Chester Valentine on 06-18-2025 Calculated very low density lipoprotein (VLDL) cholesterol measurement 14 mg/dL 5-40 [facility] Carbon dioxide, total [Moles /volume] in Central venous bloodOrdered By: Chester Valentine on 06-18-2025 CO2 [Moles/Vol] 21.9 mmol/L 21.0-32.0 [facility] Chloride assayOrdered By: Lucía Valentine on 06-18-2025 Chloride [Moles/Vol] 96 mmol/L Low 98-108 [facility] Comprehensive Metabolic Prof ilon 06-18-2025 Albumin [Mass/Vol] 4.0 g/dL Normal 3.4-4.8 [facility] Comment on above: Performed By: #### L 100.0100, L3100.5475, L500.4050, L500.4100, L501.6710, L3400.4600, L505.7010, L4600.0100, L101.9900 #### [facility] [address] [facility] [place], [address] Albumin/Globulin [Mass ratio] 1.1 {ratio} Normal 0.9-2.4 [facility] Comment on above: Performed By: #### L 100.0100, L3100.5475, L500.4050, L500.4100, L501.6710, L3400.4600, L505.7010, L4600.0100, L101.9900 #### [facility] [address] [place], [address] ALK PHOS 84 U/L Normal 35-104 [facility] Comment on above: Performed By: #### L 100.0100, L3100.5475, L500.4050, L500.4100, L501.6710, L3400.4600, L505.7010, L4600.0100, L101.9900 #### [facility] [address], [address] ALT [Catalytic activity/Vol] 12 U/L Normal <=34 [facility] Comment on above: Performed By: #### L 100.0100, L3100.5475, L500.4050, L500.4100, L501.6710, L3400.4600, L505.7010, L4600.0100, L101.9900 #### [facility] [address] [place], [address] AST [Catalytic activity/Vol] 24 U/L Normal <=31 [facility] Comment on above: Performed By: #### L 100.0100, L3100.5475, L500.4050, L500.4100, L501.6710, L3400.4600, L505.7010, L4600.0100, L101.9900 #### [facility] [address] [place], [address] Bilirubin [Mass/Vol] 0.60 mg/dL Normal 0.00-1.30 [facility] Comment on above: Performed By: #### L 100.0100, L3100.5475, L500.4050, L500.4100, L501.6710, L3400.4600, L505.7010, L4600.0100, L101.9900 #### [facility] [address] [place], [address] BUN/CRE 18.8 RATIO Normal 10-20 [facility] Comment on above: Performed By: #### L 100.0100, L3100.5475, L500.4050, L500.4100, L501.6710, L3400.4600, L505.7010, L4600.0100, L101.9900 #### [facility] [address] [place], [address] Calcium [Mass/Vol] 9.9 mg/dL Normal 7.6-11.0 [facility] Comment on above: Performed By: #### L 100.0100, L3100.5475, L500.4050, L500.4100, L501.6710, L3400.4600, L505.7010, L4600.0100, L101.9900 #### [facility] [address] [place], [address] Chloride [Moles/Vol] 96 mmol/L Low 98-108 [facility] Comment on above: Performed By: #### L 100.0100, L3100.5475, L500.4050, L500.4100, L501.6710, L3400.4600, L505.7010, L4600.0100, L101.9900 #### [facility] [address] [place], [place], [phone] (964) CO2 [Moles/Vol] 21.9 mmol/L Normal 21.0-32.0 [facility] Comment on above: Performed By: #### L 100.0100, L3100.5475, L500.4050, L500.4100, L501.6710, L3400.4600, L505.7010, L4600.0100, L101.9900 #### [facility] [address] [place], [place], [id number] (911) Creatinine [Mass/Vol] 0.82 mg/dL Normal 0.70-1.20 [facility] Comment on above: Performed By: #### L 100.0100, L3100.5475, L500.4050, L500.4100, L501.6710, L3400.4600, L505.7010, L4600.0100, L101.9900 #### [facility] [address] [place], [place], [phone] (816) GAP 14 Normal 5-15 [facility] Comment on above: Performed By: #### L 100.0100, L3100.5475, L500.4050, L500.4100, L501.6710, L3400.4600, L505.7010, L4600.0100, L101.9900 #### [facility] [address] [place], [place], [phone] (400) GFR/1.73 sq M.predicted among non-blacks MDRD (S/P/Bld) [Vol rate/Area] 78 mL/min/{1.73_m2} Normal >60 [facility] Comment on above: Result Comment: mL/m in/1.73m2 CKD-EPI Creatinine Equation (2020) Performed By: #### L 100.0100, L3100.5475, L500.4050, L500.4100, L501.6710, L3400.4600, L505.7010, L4600.0100, L101.9900 #### [facility] [address] [place], [address] Globulin (S) [Mass/Vol] 3.5 g/dL Normal 2.2-4.2 [facility] Comment on above: Performed By: #### L 100.0100, L3100.5475, L500.4050, L500.4100, L501.6710, L3400.4600, L505.7010, L4600.0100, L101.9900 #### [facility] [address] [place], [address] Glucose [Mass/Vol] 113 mg/dL High 70-99 [facility] Comment on above: Performed By: #### L 100.0100, L3100.5475, L500.4050, L500.4100, L501.6710, L3400.4600, L505.7010, L4600.0100, L101.9900 #### [facility] [address] [place], [address] Potassium [Moles/Vol] 4.3 mmol/L Normal 3.3-5.1 [facility] Comment on above: Performed By: #### L 100.0100, L3100.5475, L500.4050, L500.4100, L501.6710, L3400.4600, L505.7010, L4600.0100, L101.9900 #### [facility] [address] [place], [address] Sodium [Moles/Vol] 132 mmol/L Low 133-145 [facility] Comment on above: Performed By: #### L 100.0100, L3100.5475, L500.4050, L500.4100, L501.6710, L3400.4600, L505.7010, L4600.0100, L101.9900 #### [facility] [address] [place], [address] T PROT 7.5 g/dL Normal 5.9-8.4 [facility] Comment on above: Performed By: #### L 100.0100, L3100.5475, L500.4050, L500.4100, L501.6710, L3400.4600, L505.7010, L4600.0100, L101.9900 #### [facility] [address] [place], [address] Urea nitrogen [Mass/Vol] 15 mg/dL Normal 4-19 [facility] Comment on above: Performed By: #### L 100.0100, L3100.5475, L500.4050, L500.4100, L501.6710, L3400.4600, L505.7010, L4600.0100, L101.9900 #### [facility] [address] [place], [address] Eosinophil percentageOrdered By: Chester Valentine on 06-18-2025 Eosinophils/100 WBC (Bld) 1.7 % 0-5 [facility] Erythrocyte Sed Rateon 06-18 SED RATE 57 mm/hr High 0-30 [facility] Comment on above: Performed By: #### L 100.0100, L3100.5475, L500.4050, L500.4100, L501.6710, L3400.4600, L505.7010, L4600.0100, L101.9900 #### [facility] [address] [place], [address] Erythrocyte distribution wid th ratioOrdered By: Chester Valentine on 06-18-2025 Erythrocyte distribution width (RBC) [Ratio] 13.2 % 11.6-14.6 [facility] Erythrocyte distribution wid th standard deviationOrdered By: Chester Valentine on 06-18-2025 Erythrocyte distribution width (RBC) [Ratio] 47.3 fl High 35.1-43.9 [facility] Erythrocyte sedimentation ra teOrdered By: Chester Valentine on 06-18-2025 ESR (Bld) [Velocity] 57 mm/h High 0-30 [facility] Glomerular filtration rate ( GFR) estimation/1.73 sq m using serum, plasma, or whole bOrdered By: Chester Valentine on 06-18-2025 GFR/1.73 sq M.predicted among non-blacks MDRD (S/P/Bld) [Vol rate/Area] 78 mL/min/{1.73_m2} >60 [facility] Comment on above: mL/min/1.73m2 CKD-EP I Creatinine Equation (2020) Hematocrit Auto (Bld) [Volum e fraction]Ordered By: Chester Valentine on 06-18-2025 Hematocrit (Bld) [Volume fraction] 38.3 % 37-47 [facility] Hemoglobin measurementOrdere d By: Chester Valentine on 06-18-2025 Hemoglobin (Bld) [Mass/Vol] 12.8 g/dL 12.0-15.0 [facility] Immature granulocytes/100 WB C Auto (Bld)Ordered By: Chester Valentine on 06-18-2025 Immature granulocytes/100 WBC (Bld) 0.500 % 0.0-0.9 [facility] Comment on above: IG% - Immature Granu locytes (promyelocytes, myelocytes and metamyelocytes) > 1% indicates that a LEFT SHIFT is Present. Internal Medicine Office Vis paulina 06-18-2025 Internal Medicine Office Visit [facility] [address] [place] [address] [place] [address] OFFICE VISIT Date of Service: 06/18/25 MR#: [id number] Acct: [id number] Name: NATHANAELJOSH Rep #: [id number] : 1960 Provider: Dr. Chester lockett MD Age/Sex: 65/F Location: [facility] Status: Signed Intake Vital Signs 03/21/25 09:12 06/18/25 08:48 Height 5 ft 9 in 5 ft 9 in Weight: 218 lb 8 oz BMI 32.2 BP 132/78 H Blood Pressure Location Lt brachial Position Sitting Respiration 16 Pulse 66 Pulse Source Monitor Temp 97.8 F Temp Source Temporal Pulse Oximetry (%) 99 Oxygen Delivery Method room air Intake Visit Reasons: PT AND L HAND F/U Chief Complaint: FU Local Announcer Required: No Accompanied by: Self Is patient in pain?: No Allergies No Known Allergies Allergy (Unverified 06/18/25 08:43) Medications ???Medication ???Instructions ???Recorded ???Confirmed ???Type Vit D 2000 PO 03/15/24 06/18/25 History aspirin 81 mg tablet,delayed 81 mg PO DAILY 03/15/24 06/18/25 H istory release cyanocobalamin (vitamin B-12) 500 250 mcg PO DAILY 03/15/24 5 History mcg tablet diclofenac sodium 1 % topical gel 2 g topical ONCE 03/15/24 5 History (Voltaren Arthritis Pain) milk thistle 1,000 mg PO 03/15/24 06/18/25 Hist ory psyllium husk 3.4 gram/5.8 gram ea PO DAILY 03/15/24 06/18/25 Hist ory oral powder (Metamucil [facility] Fiber) levothyroxine 100 mcg tablet 100 mcg PO .twice week #90 tabs 06/18/25 Rx levothyroxine 112 mcg tablet 112 mcg PO .five times weekly #180 06/12/24 06/18/25 Rx tabs metoprolol succinate 100 mg 100 mg PO DAILY #90 tabs 02/20/25 06/18/25 Rx tablet,extended release 24 hr (Toprol XL) cyclobenzaprine 10 mg tablet 10 mg PO BID PRN muscle spasm #60 03/24/25 06/18/25 Rx tabs lisinopril 10 1 tab PO DAILY #90 tabs 04/10/25 0 06/18/25 Rx mg-hydrochlorothiazide 12.5 mg tablet (Zestoretic) celecoxib 200 mg capsule 200 mg PO BID PRN pain #60 caps 06/18/25 Rx methylprednisolone 4 mg tablets in See Rx Instructions PO PER PKG D IR 06/18/25 06/18/25 Rx a dose pack (Medrol (Mushtaq)) #21 tabs Have you fallen in the past year?: No [facility] Medical History (Updated 06/18/25 @ 12:[address] Chester Valentine MD) Dupuytren's contracture of left hand Degenerative disc disease, cervical Localized swelling on left hand Neck pain [...] at home: Yes HPI HPI Chief Complaint: FU Details: JOSH HFUFMAN, is a 65-year-old female presenting with joint pain and swelling. She describes bilateral hand and knee pain, which began exacerbating some time ago, specifically after a vacation to [facility]. The pain in her hands and knees initiates in the morning with a pain level of 8 out of 10. She reports losing strength in her hands, having difficulty with daily activities such as pulling up clothes, buttoning pants, or holding utensils. The hand and knee pain improve slightly by mid-afternoon following walking exercises. However, long periods of rest cause increased stiffness. She has chronic psoriasis for 20-30 years, and there is a family history of psoriatic arthritis in her mother, who was treated with methotrexate. She denies any previous definitive diagnosis of psoriatic arthritis, despite being tested a decade ago at the [facility], where blood tests and x-rays were conducted, resulting in negative results for psoriatic arthritis. The adiel (more content not included)... Normal [facility] LDL calc ser/plasOrdered By: Chester Valentine on 06-18-2025 Cholesterol in LDL [Mass/Vol] 121 mg/dL [facility] Comment on above: Bfipxajdei=748-688 m g/dL & Higher Ksht=508 mg/dL or greaterFriedwald Equation for LDL-C Laboratory - Chemistry and C hemistry - challengeOrdered By: Chester Valentine on 06-18-2025 AST [Catalytic activity/Vol] 24 U/L <32 [facility] Lipid Profileon 06-18-2025 CHOL:HDL 2.68 Normal [facility] Comment on above: Performed By: #### L 100.0100, L3100.5475, L500.4050, L500.4100, L501.6710, L3400.4600, L505.7010, L4600.0100, L101.9900 #### [facility] [address] [place], [address] Cholesterol [Mass/Vol] 215 mg/dL High <=200 [facility] Comment on above: Result Comment: Chol esterol level, Desirable <200 mg/dL Borderline high cholesterol 200-239 mg/dL High cholesterol >=240 mg/dL Recommendations of the NCEP Adult Treatment Panel for the following risk-cutoff thresholds for the [place] population. Performed By: #### L 100.0100, L3100.5475, L500.4050, L500.4100, L501.6710, L3400.4600, L505.7010, L4600.0100, L101.9900 #### [facility] [address] [place], [address] Cholesterol in HDL [Mass/Vol] 80 mg/dL Normal [facility] Comment on above: Result Comment: Tali onal Cholesterol Education Program (NCEP) guidelines: <40 mg/dL: Low HDL-cholesterol (major risk factor for CHD) >= 60 mg/dL: High HDL-cholesterol (negative risk factor for CHD) HDL-cholesterol is affected by a number of factors, e.g. smoking, exercise, hormones, sex and age. Performed By: #### L 100.0100, L3100.5475, L500.4050, L500.4100, L501.6710, L3400.4600, L505.7010, L4600.0100, L101.9900 #### [facility] [address] [place], [address] Cholesterol in LDL [Mass/Vol] 121 mg/dL Normal [facility] Comment on above: Result Comment: Bord fchmlm=076-731 mg/dL Higher Mjmf=226 mg/dL or greater Friedwald Equation for LDL-C Performed By: #### L 100.0100, L3100.5475, L500.4050, L500.4100, L501.6710, L3400.4600, L505.7010, L4600.0100, L101.9900 #### [facility] [address] [place], [address] Cholesterol in VLDL [Mass/Vol] 14 mg/dL Normal 5-40 [facility] Comment on above: Performed By: #### L 100.0100, L3100.5475, L500.4050, L500.4100, L501.6710, L3400.4600, L505.7010, L4600.0100, L101.9900 #### [facility] [address] [place], [address] Triglyceride [Mass/Vol] 68 mg/dL Normal [facility] Comment on above: Result Comment: The drugs N-Acetylcysteine and Metamizole may falsely depress this assay. Normal range: <150 mg/dL Borderline High: 150-199 mg/dL High: 200-499 mg/dL Very High: >500 mg/dL Performed By: #### L 100.0100, L3100.5475, L500.4050, L500.4100, L501.6710, L3400.4600, L505.7010, L4600.0100, L101.9900 #### [facility] [address] [place], [address] Lipoprotein a [Mass/Vol]Orde red By: Chester Valentine on 06-18-2025 Lipoprotein a [Moles/Vol] 234.9 nmol/L High <75.0 [facility] Comment on above: Results confirmed on dilution.Note: Values greater than or equal to 75.0 nmol/L may indicate an independent risk factor for CHD, but must be evaluated with caution when applied to non- populations due to the influence of genetic factors on Lp(a) across ethnicities. MCV (mean corpuscular volume ) determinationOrdered By: Chester Valentine on 06-18-2025 MCV (RBC) [Entitic vol] 98.5 fL 81-99 [facility] Mean corpuscular hemoglobin (MCH) determinationOrdered By: Chester Valentine on 06-18-2025 MCH (RBC) [Entitic mass] 32.9 pg High 27.0-32.0 [facility] Mean corpuscular hemoglobin concentration (MCHC) determinationOrdered By: Chester Valentine on 06-18-2025 MCHC (RBC) [Mass/Vol] 33.4 g/dL 32-36 [facility] Mean platelet volume determi nationOrdered By: Chester Valentine on 06-18-2025 Platelet mean volume (Bld) [Entitic vol] 11.0 fL 6.2-12.0 [facility] Monocyte percentageOrdered B y: Chester Valentine on 06-18-2025 Monocytes/100 WBC (Bld) 14.4 % High 0-10 [facility] Neutrophil percentageOrdered By: Chester Valentine on 06-18-2025 Neutrophils/100 WBC (Bld) 60.8 % 47-70 [facility] Nucleated red blood cell per centageOrdered By: Chester Valentine on 06-18-2025 Nucleated RBC/100 WBC (Bld) [Ratio] 0.3 % 0-5 [facility] Platelet countOrdered By: Lucía Valentine on 06-18-2025 Platelets (Bld) [#/Vol] 366 10*3/uL 150-450 [facility] Potassium measurement (mass/ volume)Ordered By: Chester Valentine on 06-18-2025 Potassium (Unsp spec) [Mass/Vol] 4.3 mmol/L 3.3-5.1 [facility] RBC Auto (Bld) [#/Vol]Ordere d By: Chester Valentine on 06-18-2025 RBC (Bld) [#/Vol] 3.89 10*6/uL Low 4.2-5.4 [facility] Rheumatoid Factoron 06-18-20 25 RHEUMATOID FAC < 10.0 Normal <15 [facility] Comment on above: Performed By: #### L 100.0100, L3100.5475, L500.4050, L500.4100, L501.6710, L3400.4600, L505.7010, L4600.0100, L101.9900 #### [facility] [address] [place], [address] Screening total cholesterol/ high density lipoprotein (HDL) cholesterol ratioOrdered By: Chester Valentine on 06-18-2025 Cholesterol.total/Cho lesterol in HDL [Mass ratio] 2.68 {ratio} [facility] Serum creatinine measurement (mass/volume)Ordered By: Chester Valentine on 06-18-2025 Creatinine [Mass/Vol] 0.82 mg/dL 0.70-1.20 [facility] Serum globulin measurementOr dered By: Chester Valentine on 06-18-2025 Globulin (S) [Mass/Vol] 3.5 g/dL 2.2-4.2 [facility] Serum glucose measurement (m ass/volume)Ordered By: Chester Valentine on 06-18-2025 Glucose [Mass/Vol] 113 mg/dL High 70-99 [facility] Serum or plasma C reactive p rotein measurement (mass/volume)Ordered By: Lucíaantonettehinajosh Douglasssenabritnye on 06-18-2025 CRP [Mass/Vol] 53.00 mg/L High 0.0-3.0 [facility] Serum or plasma alanine lou otransferase (ALT) measurementOrdered By: Chester Valentine on 06-18-2025 ALT [Catalytic activity/Vol] 12 U/L <35 [facility] Serum or plasma albumin bird urement (mass/volume)Ordered By: Chester Douglasssenabritney on 06-18-2025 Albumin [Mass/Vol] 4.0 g/dL 3.4-4.8 [facility] Serum or plasma albumin/glob ulin mass ratioOrdered By: Lucíaantonettehinajosh Douglasssenabritney on 06-18-2025 Albumin/Globulin [Mass ratio] 1.1 {ratio} 0.9-2.4 [facility] Serum or plasma alkaline johanne sphatase measurementOrdered By: Chester Valentine on 06-18-2025 ALP [Catalytic activity/Vol] 84 U/L 35-104 [facility] Serum or plasma calcium bird urement (mass/volume)Ordered By: Chester Douglasssenabritney on 06-18-2025 Calcium [Mass/Vol] 9.9 mg/dL 7.6-11.0 [facility] Serum or plasma cholesterol in HDL measurement (mass/volume)Ordered By: Chester Valentine on 06-18-2025 Cholesterol in HDL [Mass/Vol] 80 mg/dL >40 [facility] Comment on above: National Cholesterol Education Program (NCEP) guidelines:<40 mg/dL: Low HDL-cholesterol (major risk factor for CHD)>= 60 mg/dL: High HDL-cholesterol (negative risk factor for CHD)HDL-cholesterol is affected by a number of factors, e.g. smoking, exercise, hormones, sex and age. Serum or plasma cholesterol measurement (mass/volume)Ordered By: Chester Valentine on 06-18-2025 Cholesterol [Mass/Vol] 215 mg/dL High <201 [facility] Comment on above: Cholesterol level, D esirable <200 mg/dLBorderline high cholesterol 200-239 mg/dLHigh cholesterol >=240 mg/dLRecommendations of the NCEP Adult Treatment Panel for the following risk-cutoff thresholds for the [place] population. Serum or plasma cyclic citru llinated peptide IgG antibody assay (units/volume)Ordered By: Chester Valentine on 06-18-2025 Cyclic citrullinated peptide IgG Qn 7 units 0-19 [facility] Comment on above: Negative <20 Weak po sitive 20 - 39 Moderate positive 40 - 59 Strong positive >59Performed at: [facility] [id number] Director: Kashmir Jimenez PhD, Phone: [phone] Serum or plasma urea nitroge n measurement (mass/volume)Ordered By: Chester Valentine on 06-18-2025 Urea nitrogen [Mass/Vol] 15 mg/dL 4-19 [facility] Serum rheumatoid factor dete ctionOrdered By: Chester Valentine on 06-18-2025 Rheumatoid factor Ql (S) < 10.0 IU/mL <15 [facility] Sodium levelOrdered By: Myrna Valentine on 06-18-2025 Sodium [Moles/Vol] 132 mmol/L Low 133-145 [facility] Total proteinOrdered By: Solo Valentine on 06-18-2025 Protein [Mass/Vol] 7.5 g/dL 5.9-8.4 [facility] Triglycerides measurementOrd ered By: Chester Valentine on 06-18-2025 Triglyceride [Mass/Vol] 68 mg/dL <199 [facility] Comment on above: The drugs N-Acetylcy steine and Metamizole may falsely depress this assay. Normal range: <150 mg/dLBorderline High: 150-199 mg/dLHigh: 200-499 mg/dLVery High: >500 mg/dL White blood cell (WBC) count Ordered By: Chester Valentine on 06-18-2025 WBC (Bld) [#/Vol] 7.5 10*3/uL 4.4-11.0 [facility] PT D/C Summary (1)on 025 PT D/C Summary (1) [facility] [address] [place] [address] / REHABILITATION SERVICES DISCHARGE SUMMARY MR#: [id number] Acct: [id number] Name: JOSH HUFFMAN Rep #: [id number] : 1960 65 From: Namrata Colon PT, Cert. MDT Referring Dr.: Dr. Chester Valentine MD Status: REG RCR Insurance: [employer] SELF PAY INSURANCE Discharge Summary D/C summary: It has been my pleasure to treat JOSH HUFFMAN referred by Dr. Chester Valentine MD, with the diagnosis of CERVICAL DDD for a total of 9 visit(s). Discharge Date: 04/30/25 Please see the following information for a summary of their discharge status. Subjective Subjective: PATIENT STATES HER NECK FEELS ALMOST 100% BETTER TURNING TO THE RIGHT AND ABOUT 75% BETTER TURNING TO THE LEFT. "IT DOES FEEL SO MUCH BETTER". SHE REPORTS BEING PLEASED WITH BEING ABLE TO TURN HER HEAD FURTHER TO LEFT BEFORE SHE FEELS PAIN AND NOT FEELING MUCH PAIN. THIS IS ESPECIALLY NOTICEABLE PULLING OUT OF HER DRIVEWAY. SHE STATES SHE HAS DETERMINED FOR SURE SINCE LAST VISIT THAT HER INTERMITTENT HAND TINGLING IS NOT RELATED TO HER NECK AND DIRECTLY RELATED TO HER HAND USE. Pain L NECK PAIN: Pain Intensity (Out of 10): 2 R NECK PAIN: Pain Intensity (Out of 10): 1 Overall Improvement % Improvement: 83 Objective Objective/Function: PATIENT WAS SEEN TODAY FOR ASSESSMENT OF PROGRESS TOWARD THE SET PT GOALS, HEP CHECK, HEP PROGRESSION AND ASSESSMENT OF READINESS FOR DISCHARGE. THIS PATIENT HAS MADE EXCELLENT PROGRESS WITH PT AND IS APPROPRIATE FOR AND AGREEABLE TO DISCHARGE. Goals Goal 1:: DECREASE C/O NECK PAIN BY AT LEAST 50% TO EASE ADL'S. Goal Progress: Goal Met Goal 2:: IMPROVE CERVICAL ROM ALL PLANES TO EASE ADL'S. Goal Progress: Goal Met Goal 3:: INSTRUCT IN PROPHYLAXIS Goal Progress: Goal Met Plan Plan: D/C TO INDEP EX. PATIENT AGREEABLE. D/C Information d/c sentence: If there are questions or concerns regarding this patient's physical therapy, please feel free to call me at [phone]. Thank you for the referral of this patient. Sincerely, Namrata Colon, PT, Cert MDT Balance/Gait/Functional tests Balance/Special Test Scores Oswestry Neck Score: 4 Improvement % Improvement: 83 04/30/25 1413 CC: Dr. Chester Valentine MD BIA Signed Normal [facility] CNOVon 04-10-2025 CNOV Office Visit (OTMBHT ) ----- JOSH HUFFMAN ([id number]) 1960 F Date Time Provider Department 04/10/25 1:40 PM [facility] During your visit today, we recorded the following information about you: Avi Dobbins MD 05/07/2025 10:52 PM Signed AMB ROOMING INTAKE FLOWSHEET DATA Pain Pain Level: 5 Pain Location: Hand-Left Description: Aching, Burning, Tenderness Duration Amount of Time: 24 Duration Units: Hours Frequency: Continuous Intervention/Comfort measure: Reposition Comments: Patient is here today for left hand lump in palm of hand, going on for 8 months,and sharp pain in the wrist area going on for 2 months. Pain 5/10.Pt is right hand dominant. Pt is retired. Hobby :gardening. Mobility is ok. Avi Dobbins MD Department of Orthopaedics Orthopaedic Surgery [facility] [address] [address] [facility] [address] Dept: [phone] Dept April 10, 2025 CHIEF COMPLAINT: Established Patient of the Left Hand (Patient is here today for left hand lump in palm of hand, going on for 8 months,and sharp pain in the wrist area going on for 2 months. Pain 5/10. Pt is right hand dominant. Pt is retired. Hobby :gardening. Mobility is ok.) DYLAN Cardonacristobal Tan Nathanael is a 64-year-old female presenting with left thumb pain and a nodule on the left palm. Starr reports a nodule on the left palm that began 8 months ago and is not painful. She also reports intense pain at the base of the left thumb, which started 2 months ago. The pain is exacerbated by gripping objects, such as a coffee cup, and is described as a shooting pain that radiates up the thumb. She has been using Voltaren gel for pain management. She also notes occasional locking and cracking of the knuckle, but denies pain in that area. She is right-handed and has a history of right knee surgery performed by an orthopedic surgeon last year. She has upcoming plans to hike in [place] and [place] in [place] from May 06 through the . ASSESSMENT: M18.12 Primary osteoarthritis of first carpometacarpal joint of left hand (primary encounter diagnosis) M72.0 Dupuytren's disease of palm 1. Primary osteoarthritis of first carpometacarpal joint of left hand (M18.12) Severe osteoarthritic changes observed on X-ray at the base of the left thumb, consistent with CMC joint arthritis. Patient experiences significant pain when gripping objects, indicating advanced degeneration. - Provided a thumb brace to offload stress on the CMC joint during activities. - Continue using Voltaren gel for topical anti-inflammatory relief. - Discussed potential for corticosteroid injection under ultrasound guidance if pain persists. - Educated patient on surgical option (trapeziectomy with tendon interposition and suspensionplasty) for definitive treatment, explaining the procedure, recovery timeline, and expected outcomes. - Patient to use brace during upcoming hiking trip and consider surgical intervention post-vacation if symptoms remain intolerable. 2. Dupuytren's disease of palm (M72.0) Presence of a Dupuytren's nodule in the palm, with no current contracture or functional limitation. Condition is genetically linked and more prevalent in individuals of descent. - Advised observation and monitoring for any progression to cord formation or contracture. - Educated patient on the nature of Dupuytren's disease, including potential future treatments such as enzyme injections or fasciectomy if contracture develops. - Patient to report any changes in the nodule or development of contracture. Will continue to monitor patient for Primary osteoarthritis of first carpometacarpal joint of left hand (primary encounter diagnosis) Dupuytren's disease of palm, patient to schedule visit as per follow up discussed. OBJECTIVE: Ms. Josh Huffman is a pleasant 65 year old in no apparent distress. Gen:There were no vitals taken for this visit. nl development, non obese, no deformities ENT: Normocephalic, normal hearing, moist mucosa CV: Pulses:Radial= 2+ and symmetric, capillary refill < 2 secs, no peripheral edema/varicosities Skin: no rash, bruising or lesions. Good turgor. Psych: cooperative and appropriate, alert and oriented x 3, good mood and affect. Musculoskeletal: - Musculoskeletal: - Left Hand: - Palpable nodule at the base of the middle finger. - CMC joint with visible deformity, no tenderness reported. - Limited ability to fully extend fingers. - Right Hand: - Pain localized to the base of the thumb, exacerbated by gripping actions. Imaging: Labs: Tests: Imaging: Hand X-ray: Degenerative changes at the base of the thumb (CMC joint) with irregular joint surfaces and bone spur formation, consistent with advanced arthritis. Supporting Subjectiv (more content not included)... [facility] HAND 3V PA/LAT/OBL LTon 0 04-10-2025 XR HAND 3V PA/LAT/OBL LT * * *Final Report* * * DATE OF EXAM: Apr 10 2025 1:37PM M2X 5345 - XR HAND 3V PA/LAT/OBL LT / PROCEDURE REASON: Left hand pain * * * * Physician Interpretation * * * * HISTORY: Left hand pain TECHNOLOGIST PROVIDED HISTORY (if applicable): chronic hand pain TECHNIQUE: XR HAND 3V PA/LAT/OBL LT RESULT: LEFT hand 3 views 4 images compared with 12/08/2021. No focal swelling, fracture or dislocation. No chondrocalcinosis or erosions. Worsened osteoarthritis with severe degenerative changes now seen at the thumb carpometacarpal joint and progressive osteoarthritis at the triscaphe, thumb and index metacarpophalangeal and numerous interphalangeal joints. IMPRESSION: PROGRESSIVE OSTEOARTHRITIS. Sales And Marketing Representative: CHELSEA Transcribe Date/Time: Apr 10 2025 3:19P Dictated by : MOLLY DAVALOS MD This examination was interpreted and the report reviewed and electronically signed by: MOLLY DAVALOS MD on Apr 10 2025 3:21PM EST [id number] [facility] XR Hand - left PA and Latera l and Obliqueon 04-10-2025 * * *Final Report* * * DATE OF EXAM: Apr 10 2025 1:37PM M2X 5345 - XR HAND 3V PA/LAT/OBL LT / PROCEDURE REASON: Left hand pain * * * * Physician Interpretation * * * * HISTORY: Left hand pain TECHNOLOGIST PROVIDED HISTORY (if applicable): chronic hand pain TECHNIQUE: XR HAND 3V PA/LAT/OBL LT RESULT: LEFT hand 3 views 4 images compared with 12/08/2021. No focal swelling, fracture or dislocation. No chondrocalcinosis or erosions. Worsened osteoarthritis with severe degenerative changes now seen at the thumb carpometacarpal joint and progressive osteoarthritis at the triscaphe, thumb and index metacarpophalangeal and numerous interphalangeal joints. DIVISION OF RADIOLOGY Provider, [facility] - 04/10/2025 * * *Final Report* * * DATE OF EXAM: Apr 10 2025 1:37PM M2X 5345 - XR HAND 3V PA/LAT/OBL LT / PROCEDURE REASON: Left hand pain * * * * Physician Interpretation * * * * HISTORY: Left hand pain TECHNOLOGIST PROVIDED HISTORY (if applicable): chronic hand pain TECHNIQUE: XR HAND 3V PA/LAT/OBL LT RESULT: LEFT hand 3 views 4 images compared with 12/08/2021. No focal swelling, fracture or dislocation. No chondrocalcinosis or erosions. Worsened osteoarthritis with severe degenerative changes now seen at the thumb carpometacarpal joint and progressive osteoarthritis at the triscaphe, thumb and index metacarpophalangeal and numerous interphalangeal joints. IMPRESSION IMPRESSION: PROGRESSIVE OSTEOARTHRITIS. Sales And Marketing Representative: PSCB Transcribe Date/Time: Apr 10 2025 3:19P Dictated by : MOLLY DAVALOS MD This examination was interpreted and the report reviewed and electronically signed by: MOLLY DAVALOS MD on Apr 10 2025 3:21PM EST [facility] Radiology Study observation (narrative) [facility] XR Hand - left PA and Latera l and ObliqueOrdered By: Ccf Provider on 04-10-2025 [facility] Inital Evaluation (1) - PTon 03-31-2025 Inital Evaluation (1) - PT [facility] [address] [place] [address] / REHABILITATION SERVICES INITIAL EVALUATION MR#: [id number] Acct: [id number] Name: JOSH HUFFMAN Rep #: [id number] : 1960 64 From: Namrata Colon PT, Cert. MDT Referring Dr.: Dr. Chester Valentine MD Status: REG RCR Insurance: [employer] SELF PAY INSURANCE Patient's Visit Information Visit Information Visit Information: JOSH HUFFMAN is a 64 year old F referred to Physical Therapy by Dr. Chester Valentine MD with a diagnosis of CERVICAL DDD. Date of Evaluation: 03/31/25 Physical Therapist: Namrata Colon PT, Cert MDT Visit Plan Frequency: 2-3x /Week Duration: 4-6 Weeks Plan: Scapular Strengthening and B Pec/UT/Levator/Scalene Stretching to help reduce stress on Cervical Spine with Daily Activities. US at 1.3 W/CM2 100% to B Neck Musculature in Sitting. STM. Cervical Tx testing. Instruction in Proper Posture Control, Ergonomics with ADL's and Appropriate Activity Modifications. HEP Instructions. Subjective Subjective: Work/Leisure: RETIRED. 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 Present symptoms: SUSIE NECK PAIN L>R AND NECK STIFFNESS. PATIENT DENIES SUSIE UE SX'S. Present since: A COUPLE YEARS AGO Getting Better, Getting Worse or Staying the Same: GETTING WORSE Pain Scale: Worst - 6/10 Least - 2/10 Currently: 5/10 Commenced as a result of: NO APPARENT REASON OTHER THAN ARTHRITIS Symptoms at onset: NECK PAIN AND STIFFNESS Worse: TURNING HEAD SUSIE L>R, BENDING HEAD SIDE TO SIDE, SOMETIMES LYING IN CERTAIN POSITIONS BUT NOT SURE WHICH ONES. Better: HEAT Disturbed sleep: YES Previous history/Previous treatment: NO NECK SURGERY, INJECTIONS, CHIROPRACTIC OR OTHER EXCEPT BRIEF CHAIR MASSAGE WITH NE. This episode: NONE Dizziness: NO Tinnitus: NO Nausea: NO Shortness of Breath: NO Difficulty Swallowing: NO Gait: NORMAL Accidents: NO Unexplained weight loss: NO Imaging: RECENT NECK X-RAYS - SHOWING DDD PER PATIENT REPORT - 03/24/25: FINDINGS: There are no compression fractures. There is loss of the normal cervical lordosis. There is degenerative disc disease C4-5 through C6-7 with narrowing of the intervertebral disc spaces and marginal osteophytes. There is multilevel facet arthropathy. There is degenerative grade 1 anterolisthesis of C4 on C5. RAD/Cerv Spine 2 or 3 Views IMPRESSION: 1. Degenerative disc disease with cervical spasm. 2. Multilevel facet arthropathy with degenerative anterolisthesis of C4 on C5. PMH/Recent major surgery: Dupuytren's contracture - ORTHO CONSULT PENDING. JANUARY 2024 R KNEE SCOPE. OPEN HEART SX AGE 27. OTHER: DIFFICULTY LOOKING L WHEN DRIVING. NOTICING STARTING TO NEED TO TURN WHOLE BODY TO LOOK LEFT. [facility]ING [facility] [employer] END OF APRIL AND HOPING TO GET MORE NECK MOBILITY. Objective Objective: Sitting Posture/Standing Posture: FH. RSH'S. Active Correction of posture: GOOD Other Observations: INDEP GAIT AND TRANSFERS. Sensory deficit: SUSIE UE LIGHT TOUCH SENSATION GROSSLY INTACT AND SYMMETRICAL ROM deficit: SUSIE UE'S WFL. L HAND NOT TESTED DUE TO PAIN AND UPCOMING ORTHO CONSULT. Motor deficit: SUSIE UE'S GROSSLY 5/5 EXCEPT L HAND NT. R HAND DOMINANT WITH A R RESEARCH RECRUITER STRENGTH OF 43 LBS. PATIENT REPORTS SHE JUST GOT DONE DOING A LOT OF WEEDING. Cervical Mvmt Loss: Flex: NIL Pro: NIL Ext: MOD Ret: MOD RSB: LILIBETH LSB: LILIBETH R Rot: MOD L Rot: LILIBETH Postural strength: FAIR Palpation: INCREASED MUSCLE TONE SUSIE POSTERIOR CERVICAL MUSCULATURE. NO ACUTE CERVICAL OR SHLD TENDERNESS. TENDERNESS. Balance/Special Test Scores Oswestry Neck Score: 4 Goals Goal 1:: DECREASE C/O NECK PAIN BY AT LEAST 50% TO EASE ADL'S. Goal Time Frame: 4-6 Weeks Goal 2:: IMPROVE CERVICAL ROM ALL PLANES TO EASE ADL'S. Goal Time Frame: 4-6 Weeks Goal 3:: INSTRUCT IN PROPHYLAXIS Goal Time Frame: 4-6 Weeks Rehabilitation Potential Physical Therapy Diagnosis: POSTURAL AND NECK STIFFNESS AND WEAKNESS. Rehabilitation Potential: Good Anticipated Interventions Patient/Client Instruction: Educate patient on: Condition, Plan of Care and Risk Factors For the Purpose of:: To improve self management Therapeutic Exercise to Include: Strength training, Body mechanics, Postural training, Flexibilty training, Neuromotor development and Scapular Strength/Stabilization For the Purpose of:: To decrease pain, To improve muscle performance and motor function, To increase tolerance to activity/condition/positi on and To improve ability of physical actions for home/community/work/leisu re Manual Therapy Techniques to Include: Trigger point massage, Mobilization and Soft tissue mobilization For the Purpose of:: To decrease pain, To improve nutrient delivery to tissue and To decrease soft tissue restriction Ultrasound (thermal/non thermal) (more content not included)... [facility] Cerv Spine 2 or 3 Viewson Cerv Spine 2 or 3 Views [facility] [address] [place], [place] [address] Cerv Spine 2 or 3 Views MR#: [id number] Acct: [id number] Name: JOSH HUFFMAN Rep #: [id number] : 1960 F 64 From: Ellis Steen MD PCP: Dr. Chester Valentine MD Status: REG CLI Study: Cerv Spine 2 or 3 Views Date of Exam: 03/24/25 Exam# [id number] Ordering Dr: Chester Valentine MD PROCEDURE: CERV SPINE 2 OR 3 VIEWS 03/24/2025 REASON FOR EXAM: CHRONIC NECK PAIN TECHNIQUE: 3 views of the cervical spine. COMPARISON: None FINDINGS: There are no compression fractures. There is loss of the normal cervical lordosis. There is degenerative disc disease C4-5 through C6-7 with narrowing of the intervertebral disc spaces and marginal osteophytes. There is multilevel facet arthropathy. There is degenerative grade 1 anterolisthesis of C4 on C5. RAD/Cerv Spine 2 or 3 Views IMPRESSION: 1. Degenerative disc disease with cervical spasm. 2. Multilevel facet arthropathy with degenerative anterolisthesis of C4 on C5. Reading Location: [place] [address] CC: Dr. Chester Valentine MD Sales And Marketing Representative: Signed Normal [facility] Office Vis itoaris 03-21-2025 Internal Medicine Office Visit [facility] [address] [place] [address] [place] [address] OFFICE VISIT Date of Service: 03/21/25 MR#: [id number] Acct: [id number] Name: JOSH HUFFMAN Rep #: [id number] : 1960 Provider: Dr. Chester lockett MD Age/Sex: 64/F Location: [facility] Status: Signed Intake Vital Signs 03/21/25 09:12 [...] above, has been more active lately following alf. No numbness or tingling in her extremities. Recently had an executive physical at the [facility]. Had coronary calcium scoring which came [...] sweating, fat (more content not included)... [facility] Anion gap in Serum or Plasma Ordered By: Chester Valentine on 03-19-2025 Anion gap [Moles/Vol] 15 mmol/L 02-27 [facility] BUN/creatinine ratioOrdered By: Chester Valentine on 03-19-2025 Urea nitrogen/Creatinine [Mass ratio] 15.3 mg/mg - [facility] Basic Metabolic Profile (BMP )on 03-19-2025 BUN/CRE 15.3 RATIO Normal 08-04 [facility] Comment on above: Performed By: #### L 501.6710, L101.9900 #### [facility] [address] [place], [address] Calcium [Mass/Vol] 9.8 mg/dL Normal 7.6-11.0 [facility] Comment on above: Performed By: #### L 501.6710, L101.9900 #### [facility] [address] [place], [address] Chloride [Moles/Vol] 94 mmol/L Low 98-108 [facility] Comment on above: Performed By: #### L 501.6710, L101.9900 #### [facility] [address] [place], [address] CO2 [Moles/Vol] 23.3 mmol/L Normal 21.0-32.0 [facility] Comment on above: Performed By: #### L 501.10, L101.9900 #### [facility] [address] [place], [address] Creatinine [Mass/Vol] 0.86 mg/dL Normal 0.70-1.20 [facility] Comment on above: Performed By: #### L 501.10, L101.9900 #### [facility] [address] [place], [address] GAP 15 Normal 5-15 [facility] Comment on above: Performed By: #### L 501.10, L101.9900 #### [facility] [address] [place], [address] GFR/1.73 sq M.predicted among non-blacks MDRD (S/P/Bld) [Vol rate/Area] 74 mL/min/{1.73_m2} Normal >60 [facility] Comment on above: Result Comment: mL/m in/1.73m2 CKD-EPI Creatinine Equation (2020) Performed By: #### L 501.10, L101.9900 #### [facility] [address] [place], [address] Glucose [Mass/Vol] 92 mg/dL Normal 70-99 [facility] Comment on above: Performed By: #### L 501.10, L101.9900 #### [facility] [address] [place], [address] Potassium [Moles/Vol] 4.0 mmol/L Normal 3.3-5.1 [facility] Comment on above: Performed By: #### L 501.6710, L101.9900 #### [facility] [address] [place], [address] Sodium [Moles/Vol] 132 mmol/L Low 133-145 [facility] Comment on above: Performed By: #### L 501.6709, L101.9900 #### [facility] [address] [place], [place], [address] Urea nitrogen [Mass/Vol] 13 mg/dL Normal 4-19 [facility] Comment on above: Performed By: #### L 501.6710, L101.9900 #### [facility] [address] [place], [address] Carbon dioxide, total [Moles /volume] in Central venous bloodOrdered By: Chester Valentine on 03-19-2025 CO2 [Moles/Vol] 23.3 mmol/L 21.0-32.0 [facility] Chloride assayOrdered By: Lucía Valentine on 03-19-2025 Chloride [Moles/Vol] 94 mmol/L Low 98-108 [facility] Glomerular filtration rate ( GFR) estimation/1.73 sq m using serum, plasma, or whole bOrdered By: Chester Valentine on 03-19-2025 GFR/1.73 sq M.predicted among non-blacks MDRD (S/P/Bld) [Vol rate/Area] 74 mL/min/{1.73_m2} >60 [facility] Comment on above: mL/min/1.73m2 CKD-EP I Creatinine Equation (2020) Potassium measurement (mass/ volume)Ordered By: Chester Valentine on 03-19-2025 Potassium (Unsp spec) [Mass/Vol] 4.0 mmol/L 3.3-5.1 [facility] Serum creatinine measurement (mass/volume)Ordered By: Chester Valnetine on 03-19-2025 Creatinine [Mass/Vol] 0.86 mg/dL 0.70-1.20 [facility] Serum glucose measurement (m ass/volume)Ordered By: Chester Valentine on 03-19-2025 Glucose [Mass/Vol] 92 mg/dL 70-99 [facility] Serum or plasma calcium bird urement (mass/volume)Ordered By: Chester Valentine on 03-19-2025 Calcium [Mass/Vol] 9.8 mg/dL 7.6-11.0 [facility] Serum or plasma urea nitroge n measurement (mass/volume)Ordered By: Lucíaantonetteluca Rafatde on 03-19-2025 Urea nitrogen [Mass/Vol] 13 mg/dL 4-19 [facility] Sodium levelOrdered By: Myrna segovia Rafatde on 03-19-2025 Sodium [Moles/Vol] 132 mmol/L Low 133-145 [facility] TSH DL <= 0.005 mIU/L QnOrde red By: Chester Douglassde on 03-19-2025 TSH Qn 0.996 uIU/mL 0.300-4.200 [facility] Thyroid Stim Hormone (TSH)on 03-19-2025 TSH 0.996 uIU/mL Normal 0.300-4.200 [facility] Comment on above: Performed By: #### L 501.6710, L101.9900 #### [facility] [address] [place], [place], [address] 25(OH)D3 SerPl-mCncon 2024 25-hydroxyvitamin D3 [Mass/Vol] 65.2 ng/mL Normal 31.0-80.0 [facility] Comment on above: Order Comment: Teai men Type: BLOOD SPECIMENOrdering Facility: [facility] Address: [address] [place] [address] Performed By: #### 1 989-3 ####[facility] LABCLIA [id number] [place] [address] [place] Apo B SerPl-mCncon 5 Apolipoprotein B [Mass/Vol] 90 mg/dL High <90 [facility] Comment on above: Order Comment: Speci men Type: BLOOD SPECIMENOrdering Facility: [facility] Address: [address] [place] [address] Result Comment: Mode rate Risk: 90-129 mg/dL High Risk: >129 mg/dL Performed By: #### 1 884-6, 27235-0 ####[facility] LABCLIA [id number] [place] [address] [place] BD DXA - AXIAL SKELETONon BD DXA - AXIAL SKELETON * * *Final Report* * * DATE OF EXAM: Dec 17 2024 9:32AM [facility] 0804 - BD DXA - AXIAL SKELETON / PROCEDURE REASON: Routine general medical examination at a health care facility * * * * Physician Interpretation * * * * EXAMINATION: DXA BONE DENSITOMETRY BD DXA - AXIAL SKELETON, BD DXA TRABECLR BONE SCORE (TBS) PATIENT DEMOGRAPHICS: Age: 64 years, Gender: Female SCANNER INFORMATION: DXA Model: A21 iPinYou (S/N: [id number]) Date Scanned: 12/17/2024 9:32 AM CLINICAL HISTORY: [...] FOR MORE INFORMATION ABOUT DIAGNOSIS AND TREATMENT: [facility] Center for Osteoporosis and Metabolic Bone Disease:? www.ccf.org/arthritis/ost eo National Osteoporosis Foundation:? www.nof.org International Society of Clinical Densitometry www.iscd.org Sales And Marketing Representative: alverto Transcribe Date/Time: Dec 17 2024 10:03A Dictated by : EN HANLEY MD This examination was interpreted and the report reviewed and electronically signed by: EN HANLEY MD on Dec 19 2024 4:23PM EST [id number] 1.4 [facility] BD DXA TRABECLR BONE SCORE ( TBS)on 12-17-2024 BD DXA TRABECLR BONE SCORE (TBS) * * *Final Report* * * DATE OF EXAM: Dec 17 2024 9:32AM [facility] 0801 - BD DXA TRABECLR BONE SCORE (TBS) / PROCEDURE REASON: Routine general medical examination at a health care facility * * * * Physician Interpretation * * * * EXAMINATION: DXA BONE DENSITOMETRY BD DXA - AXIAL SKELETON, BD DXA TRABECLR BONE SCORE (TBS) PATIENT DEMOGRAPHICS: Age: 64 years, Gender: Female SCANNER INFORMATION: DXA Model: A21 iPinYou (S/N: [id number]) Date Scanned: 12/17/2024 9:32 AM CLINICAL HISTORY: [...] FOR MORE INFORMATION ABOUT DIAGNOSIS AND TREATMENT: [facility] Center for Osteoporosis and Metabolic Bone Disease:? www.ccf.org/arthritis/ost eo National Osteoporosis Foundation:? www.nof.org International Society of Clinical Densitometry www.iscd.org Sales And Marketing Representative: sens Transcribe Date/Time: Dec 17 2024 10:03A Dictated by : EN HANLEY MD This examination was interpreted and the report reviewed and electronically signed by: EN HANLEY MD on Dec 19 2024 4:23PM EST [id number] 1.4 [facility] CBC W Auto Differential pane l (Bld)on 12-17-2024 Basophils (Bld) [#/Vol] 0.04 10*3/uL Normal <0.11 [facility] Comment on above: Order Comment: Speci men Type: BLOOD SPECIMENOrdering Facility: [facility] Address: [address] [place] [address] Performed By: #### 5 7021-8 ####[facility] LABCLIA [id number] [facility] [address], [place] [address] [place] Basophils/100 WBC (Bld) 0.9 % Normal [facility] Comment on above: Order Comment: Speci men Type: BLOOD SPECIMENOrdering Facility: [facility] Address: [address] [place] [address] Performed By: #### 5 7021-8 ####[facility] LABCLIA [id number] [address], [place] [address] [place] Differential cell count method Nom (Bld) Auto Normal [facility] Comment on above: Order Comment: Speci men Type: BLOOD SPECIMENOrdering Facility: [facility] Address: [address] [place] [address] Performed By: #### 5 7021-8 ####[facility] LABCLIA [id number] [address], [place] [address] [place] Eosinophils (Bld) [#/Vol] 0.05 10*3/uL Normal <0.46 [facility] Comment on above: Order Comment: Speci men Type: BLOOD SPECIMENOrdering Facility: [facility] Address: [address] [place] [address] Performed By: #### 5 7021-8 ####[facility] LABCLIA [id number] [place] [id number] [place] Eosinophils/100 WBC (Bld) 1.1 % Normal [facility] Comment on above: Order Comment: Speci men Type: BLOOD SPECIMENOrdering Facility: [facility] Address: [address] [place] [address] Performed By: #### 5 7021-8 ####[facility] LABCLIA [id number] [place] [address] [place] Erythrocyte distribution width (RBC) [Ratio] 12.1 % Normal 11.5-15.0 [facility] Comment on above: Order Comment: Speci men Type: BLOOD SPECIMENOrdering Facility: [facility] Address: [address] [place] [address] Performed By: #### 5 7021-8 ####[facility] LABIA [id number] [place] [address] [place] Hematocrit (Bld) [Volume fraction] 39.4 % Normal 36.0-46.0 [facility] Comment on above: Order Comment: Speci men Type: BLOOD SPECIMENOrdering Facility: [facility] Address: [address] [place] [address] Performed By: #### 5 7021-8 ####[facility] LABIA [id number] [place] [address] [place] Hemoglobin (Bld) [Mass/Vol] 13.2 g/dL Normal 11.5-15.5 [facility] Comment on above: Order Comment: Speci men Type: BLOOD SPECIMENOrdering Facility: [facility] Address: [address] [place] [address] Performed By: #### 5 7021-8 ####[facility] LABCLIA [id number] [place] [address] [place] Immature granulocytes (Bld) [#/Vol] 10*3/uL Normal <0.10 [facility] Comment on above: Order Comment: Speci men Type: BLOOD SPECIMENOrdering Facility: [facility] Address: [address] [place] [address] Performed By: #### 5 7021-8 ####[facility] LABCLIA [id number] [place] [id number] [place] Immature granulocytes/100 WBC (Bld) 0.4 % Normal [facility] Comment on above: Order Comment: Speci men Type: BLOOD SPECIMENOrdering Facility: [facility] Address: [address] [place] [address] Performed By: #### 5 7021-8 ####[facility] LABCLIA [id number] [place] [address] [place] Lymphocytes (Bld) [#/Vol] 1.44 10*3/uL Normal 1.00-4.00 [facility] Comment on above: Order Comment: Speci men Type: BLOOD SPECIMENOrdering Facility: [facility] Address: [address] [place] [address] Performed By: #### 5 7021-8 ####[facility] LABCLIA [id number] [place] [address] [place] Lymphocytes/100 WBC (Bld) 31.0 % Normal [facility] Comment on above: Order Comment: Speci men Type: BLOOD SPECIMENOrdering Facility: [facility] Address: [address] [place] [address] Performed By: #### 5 7021-8 ####[facility] LABCLIA [id number] [place] [address] [place] MCH (RBC) [Entitic mass] 34.1 pg High 26.0-34.0 [facility] Comment on above: Order Comment: Speci men Type: BLOOD SPECIMENOrdering Facility: [facility] Address: [address] [place] [address] Performed By: #### 5 7021-8 ####[facility] LABCLIA [id number] [place] [address] [place] MCHC (RBC) [Mass/Vol] 33.5 g/dL Normal 30.5-36.0 [facility] Comment on above: Order Comment: Speci men Type: BLOOD SPECIMENOrdering Facility: [facility] Address: [address] [place] [address] Performed By: #### 5 7021-8 ####[facility] LABCLIA [id number] [place] [address] [place] MCV (RBC) [Entitic vol] 101.8 fL High 80.0-100.0 [facility] Comment on above: Order Comment: Speci men Type: BLOOD SPECIMENOrdering Facility: [facility] Address: [address] [place] [address] Performed By: #### 5 7021-8 ####[facility] LABCLIA [id number] [place] [address] [place] Monocytes (Bld) [#/Vol] 1.10 10*3/uL High <0.87 [facility] Comment on above: Order Comment: Speci men Type: BLOOD SPECIMENOrdering Facility: [facility] Address: [address] [place] [address] Performed By: #### 5 7021-8 ####[facility] LABCLIA [id number] [place] [address] [place] Monocytes/100 WBC (Bld) 23.7 % Normal [facility] Comment on above: Order Comment: Speci men Type: BLOOD SPECIMENOrdering Facility: [facility] Address: [address] [place] [address] Performed By: #### 5 7021-8 ####[facility] LABCLIA [id number] [place] [id number] [place] Neutrophils (Bld) [#/Vol] 1.99 10*3/uL Normal 1.45-7.50 [facility] Comment on above: Order Comment: Speci men Type: BLOOD SPECIMENOrdering Facility: [facility] Address: [address] [place] [address] Performed By: #### 5 7021-8 ####[facility] LABCLIA [id number] [place] [address] [place] Neutrophils/100 WBC (Bld) 42.9 % Normal [facility] Comment on above: Order Comment: Speci men Type: BLOOD SPECIMENOrdering Facility: [facility] Address: [address] [place] [address] Performed By: #### 5 7021-8 ####[facility] LABCLIA [id number] [place] [address] [place] Nucleated RBC (Bld) [#/Vol] 0.02 10*3/uL High <0.01 [facility] Comment on above: Order Comment: Speci men Type: BLOOD SPECIMENOrdering Facility: [facility] Address: [address] [place] [address] Performed By: #### 5 7021-8 ####[facility] LABIA [id number] [place] [address] [place] Nucleated RBC/100 WBC (Bld) [Ratio] 0.4 /100 WBC Normal [facility] Comment on above: Order Comment: Speci men Type: BLOOD SPECIMENOrdering Facility: [facility] Address: [address] [place] [address] Performed By: #### 5 7021-8 ####[facility] LABIA [id number] [place] [address] [place] Platelet mean volume (Bld) [Entitic vol] 10.7 fL Normal 9.0-12.7 [facility] Comment on above: Order Comment: Speci men Type: BLOOD SPECIMENOrdering Facility: [facility] Address: [address] [place] [address] Performed By: #### 5 7021-8 ####[facility] LABCLIA [id number] [place] [address] [place] Platelets (Bld) [#/Vol] 267 10*3/uL Normal 150-400 [facility] Comment on above: Order Comment: Speci men Type: BLOOD SPECIMENOrdering Facility: [facility] Address: [address] [place] [address] Performed By: #### 5 7021-8 ####[facility] LABIA [id number] [place] [address] [place] RBC (Bld) [#/Vol] 3.87 10*6/uL Low 3.90-5.20 [facility] Comment on above: Order Comment: Speci men Type: BLOOD SPECIMENOrdering Facility: [facility] Address: [address] [place] [address] Performed By: #### 5 7021-8 ####[facility] LABIA [id number] [place] [address] [place] WBC (Bld) [#/Vol] 4.64 10*3/uL Normal 3.70-11.00 [facility] Comment on above: Order Comment: Speci men Type: BLOOD SPECIMENOrdering Facility: [facility] Address: [address] [place] [address] Performed By: #### 5 7021-8 ####[facility] [id number] [place] [address] [place] CNOVon 12-17-2024 CNOV Office Visit (EXEPMN ) ----- JOSH HUFFMAN ([id number]) 1960 F Date Time Provider Department 12/17/24 2:00 PM [facility]ID HULL EXEPMN During your visit today, we recorded the following information about you: Temperature Pulse Blood pressure Weight 98.2 degrees 66/minute 112/76 99.7 kg Height 1.753 m Rubi Pandey RN 12/17/2024 5:27 PM Signed Pt. [...] B-na Influenza-2022; given today Shingrix-x2; 2019 Covid-19 0521-6278- 2022; given today RSV- 2022 See Immunization record in EPIC. Discussed with patient current recommendations from the CDC for routine adult immunizations. Questions answered. Pt. verbalizes understanding of information discussed. Provided patient with [facility] Immunization System Document and VIS sheet. VISUAL ACUITY Patient declines vision exam Date of Last Exam - 2023 Vision Correction Reading Glasses David Hull MD 12/17/2024 5:27 PM Signed HEALTH EVALUATION ON: Josh Huffman [address] [facility] [address] DATE OF EXAMINATION: December 17, 2024 Age: [age] year old Clinic No. : [id number] PRESENT COMPLAINTS: Physical examination. MEDICATION ALLERGIES: None. [...] (10/2019). Hyperlipidemia (10/2019). Elevated Lp(a). Prediabetes (07/2023: UOX=340, A1c=5.9%). Ascending aorta dilation (4.[address] 10/2019-07/2023). Transient Ischemic Attack (1987; during first , diagnosed ASD, repaired at [facility] after delivery). Atrial Septal Defect (1987; repaired at [facility] at age 27). Hypertension (2012). Hypothyroidism [...] in 1979. (more content not included)... 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 Patient Name: Josh Huffman "Starr" Date: December 17, 2024 [facility] Number: [id number] [facility] [...] during first , diagnosed ASD, repaired at [facility] after delivery). 9. Atrial septal defect (1987; repaired at [facility] at age 27). 10. Hypertension (2012). 11. Hypothyroidism (2016). Current dose of levothyroxine is appropriate. 12. [...] comparison of standards for age and gender. 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 Anything beyond ten minutes [...] same mu (more content not included)... [facility] CRP SerPl HS-mCncon 12-18-19 25 CRP High sensitivity method [Mass/Vol] 5.1 mg/L High <3.1 [facility] Comment on above: Order Comment: Speci men Type: BLOOD SPECIMENOrdering Facility: [facility] Address: [address] [place] [address] Result Comment: hsCR P < 1.0 mg/L, relative risk is low hsCRP 1.0-3.0 mg/L, relative risk is average hsCRP > 3.0 mg/L, relative risk is high Reference: Mckenna TA, Macey GA, Jaylon RW, et al. Markers of Inflammation and Cardiovascular Disease. Application to Clinical and Public Health Practice. A Statement for Healthcare Professionals from the Centers for Disease Control and Prevention and the [place] [employer]. Circulation 2003;107:499-511. Performed By: #### 1 8262-6, 2324-2, 04299-5 ####[facility] LABCLIA [id number] [place] [address] [place] CT CALCIUM SCORING SELF Brooklynn n 12-17-2024 CT CALCIUM SCORING SELF PAY * * *Final Report* * * DATE OF EXAM: Dec 17 2024 12:33PM [facility] 2104 - CT CALCIUM SCORING SELF PAY [...] AORTIC DIMENSIONS: AORTIC ROOT: 3.6 cm measured yssca-jc-vlavc mid ASCENDING THORACIC AORTA: 4.5 cm mid DESCENDING THORACIC AORTA: 2.7 cm CORONARY ANATOMY: Normal origin of the coronary arteries Calcium Score (Agatston Units): LM: 0 AU LAD: 0 AU LCx: 0 AU RCA: 0 AU Other: 0 AU Total: 0 AU Thermite Bomb Loader (topogram) images: No additional findings. IMPRESSION: NO CORONARY CALCIFICATION - Total Coronary Calcium Score (CAC) = 0 AU - mid ASCENDING THORACIC AORTA: 4.5 cm Recommend Cardiology consultation and Consider contrast enhanced Thoracic Aorta CTA or MRI/MRA for definitive evaluation. Sales And Marketing Representative: CHELSEA Transcribe Date/Time: Dec 17 2024 12:54P Dictated by : THERESA JULES, DO This examination was interpreted and the report reviewed and electronically signed by: THERESA VICENTE DO on Dec 17 2024 1:53PM EST [id number] [facility] CT Heart and Coronary arteri es for calcium scoring WO contraston 12-17-2024 IMPRESSION: NO CORON ALONA CALCIFICATION - Total Coronary Calcium Score (CAC) = 0 AU - mid ASCENDING THORACIC AORTA: 4.5 cm Recommend Cardiology consultation and Consider contrast enhanced Thoracic Aorta CTA or MRI/MRA for definitive evaluation. Sales And Marketing Representative: CHELSEA Transcribe Date/Time: Dec 17 2024 12:54P Dictated by : THERESA VICENTE DO This examination was interpreted and the report reviewed and electronically signed by: THERESA VICENTE DO on Dec 17 2024 1:53PM EST DIVISION OF RADIOLOGY * * *Final Report* * * DATE OF EXAM: Dec 17 2024 12:33PM [facility] 2104 - CT CALCIUM SCORING SELF PAY [...] AORTIC DIMENSIONS: AORTIC ROOT: 3.6 cm measured ksxly-ap-ymryj mid ASCENDING THORACIC AORTA: 4.5 cm mid DESCENDING THORACIC AORTA: 2.7 cm CORONARY ANATOMY: Normal origin of the coronary arteries Calcium Score (Agatston Units): LM: 0 AU LAD: 0 AU LCx: 0 AU RCA: 0 AU Other: 0 AU Total: 0 AU Thermite Bomb Loader (topogram) images: No additional findings. DIVISION OF RADIOLOGY Provider, [facility] - 12/17/2024 * * *Final Report* * * DATE OF EXAM: Dec 17 2024 12:33PM [facility] 2104 - CT CALCIUM SCORING SELF PAY [...] AORTIC DIMENSIONS: AORTIC ROOT: 3.6 cm measured cwagg-jy-vrdjw mid ASCENDING THORACIC AORTA: 4.5 cm mid DESCENDING THORACIC AORTA: 2.7 cm CORONARY ANATOMY: Normal origin of the coronary arteries Calcium Score (Agatston Units): LM: 0 AU LAD: 0 AU LCx: 0 AU RCA: 0 AU Other: 0 AU Total: 0 AU Thermite Bomb Loader (topogram) images: No additional findings. IMPRESSION IMPRESSION: NO CORONARY CALCIFICATION - Total Coronary Calcium Score (CAC) = 0 AU - mid ASCENDING THORACIC AORTA: 4.5 cm Recommend Cardiology consultation and Consider contrast enhanced Thoracic Aorta CTA or MRI/MRA for definitive evaluation. Sales And Marketing Representative: PSCB Transcribe Date/Time: Dec 17 2024 12:54P Dictated by : THERESA VICENTE DO This examination was interpreted and the report reviewed and electronically signed by: THERESA VICENTE DO on Dec 17 2024 1:53PM EST [facility] Radiology Study observation (narrative) [facility] CT Heart and Coronary arteri es for calcium scoring WO contrastOrdered By: Ccf Provider on 12-17-2024 [facility] Cholesterol in LDL Direct as say [Mass/Vol]on 12-17-2024 Cholesterol in LDL [Mass/Vol] 123 mg/dL High <100 [facility] Comment on above: Order Comment: Anish wing Type: BLOOD SPECIMENOrdering Facility: [facility] Address: [address] [place] [address] Result Comment: <100 mg/dL, Optimal 100-129 mg/dL, Near optimal/above optimal 130-159 mg/dL, Borderline high 160-189 mg/dL, High >189 mg/dL, Very high Secondary prevention optimal LDL Cholesterol levels are recommended to be < 70 mg/dL Performed By: #### 1 8262-6, 2324-2, 92598-2 ####[facility] LABCLIA [id number] [place] [address] [place] Cholesterol in VLDL [Mass/Vol] 7 mg/dL Normal <30 [facility] Comment on above: Order Comment: Anish wing Type: BLOOD SPECIMENOrdering Facility: [facility] Address: [address] [place] [address] Performed By: #### 1 8262-6, 2324-2, 68204-4 ####[facility] LABIA [id number] [address] [address] [place] Comprehensive metabolic 2000 panelon 12-17-2024 Albumin [Mass/Vol] 4.1 g/dL Normal 3.9-4.9 [facility] Comment on above: Order Comment: Speci men Type: BLOOD SPECIMENOrdering Facility: [facility] Address: [address] [place], [place] [address] Performed By: #### 2 132-9, 2276-4, 70716-1, 93516-8 ####[facility] [id number] [place] [id number] [place] ALP [Catalytic activity/Vol] 65 U/L Normal 34-123 [facility] Comment on above: Order Comment: Speci men Type: BLOOD SPECIMENOrdering Facility: [facility] Address: [address] [place] [address] Performed By: #### 2 132-9, 2276-4, 73179-4, 08036-7 ####[facility] [id number] [place] [id number] [place] ALT [Catalytic activity/Vol] 20 U/L Normal 7-38 [facility] Comment on above: Order Comment: Speci men Type: BLOOD SPECIMENOrdering Facility: [facility] Address: [address] [place], [place] [address] Performed By: #### 2 132-9, 2276-4, 16646-9, 61754-9 ####[facility] [id number] [address] [address] [place] Anion gap [Moles/Vol] 12 mmol/L Normal 8-15 [facility] Comment on above: Order Comment: Speci men Type: BLOOD SPECIMENOrdering Facility: [facility] Address: [address] [place], [place] [address] Performed By: #### 2 132-9, 2276-4, 64094-7, 85322-2 ####[facility] LABCLIA [id number] [address] [address] [place] AST [Catalytic activity/Vol] 29 U/L Normal 13-35 [facility] Comment on above: Order Comment: Speci men Type: BLOOD SPECIMENOrdering Facility: [facility] Address: [address] [place] [address] Performed By: #### 2 132-9, 6-4, 00839-1, 76516-5 ####[facility] LABIA [id number] [place] [id number] [place] Bilirubin [Mass/Vol] 0.4 mg/dL Normal 0.2-1.3 [facility] Comment on above: Order Comment: Speci men Type: BLOOD SPECIMENOrdering Facility: [facility] Address: [address] [place] [address] Performed By: #### 2 132-9, 2275-4, 18017-6, 68338-1 ####[facility] LABIA [id number] [place] [id number] [place] Calcium [Mass/Vol] 9.2 mg/dL Normal 8.5-10.2 [facility] Comment on above: Order Comment: Speci men Type: BLOOD SPECIMENOrdering Facility: [facility] Address: [address] [place], [place] [address] Performed By: #### 2 132-9, 2275-4, 73471-8, 73864-3 ####[facility] LABIA [id number] [place] [id number] [place] Chloride [Moles/Vol] 92 mmol/L Low 98-107 [facility] Comment on above: Order Comment: Speci men Type: BLOOD SPECIMENOrdering Facility: [facility] Address: [address] [place] [address] Performed By: #### 2 132-9, 6-4, 66508-0, 64710-2 ####[facility] LABCLIA [id number] [place] [id number] [place] CO2 [Moles/Vol] 26 mmol/L Normal 22-30 [facility] Comment on above: Order Comment: Speci men Type: BLOOD SPECIMENOrdering Facility: [facility] Address: [address] [place] [address] Performed By: #### 2 132-9, 6-4, 34438-6, 63495-8 ####[facility] LABCLIA [id number] [place] [id number] [place] Creatinine [Mass/Vol] 0.78 mg/dL Normal 0.58-0.96 [facility] Comment on above: Order Comment: Speci men Type: BLOOD SPECIMENOrdering Facility: [facility] Address: [address] [place] [address] Performed By: #### 2 132-9, 6-4, 30969-2, 35545-2 ####[facility] LABCLIA [id number] [place] [address] [place] Creatinine and Glomerular filtration rate.predicted panel (S/P/Bld) 84 mL/min/1.73m??? Normal >=60 [facility] Comment on above: Order Comment: Speci men Type: BLOOD SPECIMENOrdering Facility: [facility] Address: [address] [place] [address] Result Comment: Andree mated Glomerular Filtration Rate [...] reflect actual GFR. Performed By: #### 2 132-9, 2276-4, 56674-8, 89298-0 ####[facility] LABCLIA [id number] [place] [id number] [place] Glucose [Mass/Vol] 100 mg/dL High 74-99 [facility] Comment on above: Order Comment: Speci men Type: BLOOD SPECIMENOrdering Facility: [facility] Address: [address] [place] [address] Result Comment: The [place] Diabetes Association (ADA) provides guidance for cutoff [...] Standards of Medical Care in Diabetes 2016, [place] Diabetes Association. Diabetes Care. 2016.39(Suppl 1). Performed By: #### 2 132-9, 2276-4, 29897-2, 05227-2 ####[facility] LABCLIA [id number] [place] [id number] [place] Potassium [Moles/Vol] 4.2 mmol/L Normal 3.7-5.1 [facility] Comment on above: Order Comment: Speci men Type: BLOOD SPECIMENOrdering Facility: [facility] Address: [address] [place] [address] Performed By: #### 2 132-9, 2276-4, 29354-7, 23347-6 ####[facility] LABCLIA [id number] [place] [id number] [place] Protein [Mass/Vol] 6.5 g/dL Normal 6.3-8.0 [facility] Comment on above: Order Comment: Speci men Type: BLOOD SPECIMENOrdering Facility: [facility] Address: [address] [place] [address] Performed By: #### 2 132-9, 2276-4, 66524-9, 70010-5 ####[facility] LABIA [id number] [address] [address] [place] Sodium [Moles/Vol] 130 mmol/L Low 136-144 [facility] Comment on above: Order Comment: Speci men Type: BLOOD SPECIMENOrdering Facility: [facility] Address: [address] [place], [place] [address] Performed By: #### 2 132-9, 2276-4, 96419-5, 71490-4 ####[facility] [id number] [place] [id number] [place] Urea nitrogen [Mass/Vol] 11 mg/dL Normal 7-21 [facility] Comment on above: Order Comment: Speci men Type: BLOOD SPECIMENOrdering Facility: [facility] Address: [address] [place] [address] Performed By: #### 2 132-9, 2276-4, 73671-7, 21494-7 ####[facility] [id number] [place] [id number] [place] DBT Breast - [...] Ambar Lugo M.D. Electronically signed on: 12/17/2024 Sales And Marketing Representative: ORTEGA Transcribe Date/Time: Dec 17 2024 10:51A Dictated by : AMBAR LUGO MD This examination was interpreted and the report reviewed and electronically signed by: AMBAR LUGO MD on Dec 17 2024 1:10PM [facility] DIVISION OF RADIOLOGY * * *Final Report* * * DATE OF EXAM: Dec 17 2024 1:02PM [facility] [place] SCREENING W RADHA EX HLTH -NB / PROCEDURE REASON: Routine general medical examination at a health care facility * * * * Physician Interpretation * * * * RESULT: [place] [address] [place] [address] #[id number] - [facility] SCREENING W RADHA EX HLTH [...] significant interval changes. DIVISION OF RADIOLOGY Provider, [facility] - 12/17/2024 * * *Final Report* * * DATE OF EXAM: Dec 17 2024 1:02PM W 0662 - KATE SCREENING W RADHA EX HLTH -NB / PROCEDURE REASON: Routine general medical examination at a health care facility * * * * Physician Interpretation * * * * RESULT: [place] [address] #[id number] - [facility] SCREENING W RADHA EX HLTH [...] Ambar Lugo M.D. Electronically signed on: 12/17/2024 Sales And Marketing Representative: ORTEGA Transcribe Date/Time: Dec 17 2024 10:51A Dictated by : AMBAR LUGO MD This examination was interpreted and the report reviewed and electronically signed by: AMBAR LUGO MD on Dec 17 2024 1:10PM EST [facility] Radiology Study observation (narrative) [facility] DBT Breast - bilateral scree ningOrdered By: Ccf Provider on 12-17-2024 [facility] EX ALB/CREAT RND URon 2024 Albumin DL <= 20 mg/L (U) [Mass/Vol] mg/dL Normal [facility] Comment on above: Order Comment: Speci men Type: URINE SPECIMENOrdering Facility: [facility] Address: [address] [place] [address] Performed By: #### U ACREX ####[facility] LABCLIA [id number] [place] [address] [place] Albumin/Creatinine (U) [Mass ratio] <19 Normal <30 [facility] Comment on above: Order Comment: Speci men Type: URINE SPECIMENOrdering Facility: [facility] Address: [address] [place] [address] Result Comment: Adul t Male and Female Nephrotic Criteria: <30 mg/g is considered normal to mildly increased 30-300 mg/g is considered moderately increased >300 mg/g is considered severely increased KDIGO. (2013). KDIGO 2012 Clinical Practice Guideline for the Evaluation and Management of Chronic Kidney Disease. Official Journal of the International Society of Nephrology, 3(1), 1-150. Performed By: #### U ACREX ####[facility] LABCLIA [id number] [place] [address] [place] Creatinine (U) [Mass/Vol] 64.0 mg/dL Normal 20.0-300.0 [facility] Comment on above: Order Comment: Speci men Type: URINE SPECIMENOrdering Facility: [facility] Address: [address] [place] [address] Performed By: #### U ACREX ####[facility] LABCLIA [id number] [place] [address] [place] EX UA CHEMSTRIPon 12-17-2024 Bilirubin Ql (U) Negative Normal Negative [facility] Comment on above: Order Comment: Speci men Type: URINE SPECIMENOrdering Facility: [facility] Address: [address] [place] [address] Performed By: #### U AEX ####[facility] LABCLIA [id number] [address] [place] Clarity (Unsp spec) Clear Normal Clear [facility] Comment on above: Order Comment: Speci men Type: URINE SPECIMENOrdering Facility: [facility] Address: [address] [place] [address] Performed By: #### U AEX ####[facility] LABIA [id number] [address] [place] Color (U) Yellow Normal Yellow [facility] Comment on above: Order Comment: Speci men Type: URINE SPECIMENOrdering Facility: [facility] Address: [address] [place] [address] Performed By: #### U AEX ####[facility] LABCLIA [id number] [address], [facility]95 [place] Glucose Test strip (U) [Mass/Vol] Negative Normal Negative [facility] Comment on above: Order Comment: Speci men Type: URINE SPECIMENOrdering Facility: [facility] Address: [address] [place] [address] Performed By: #### U AEX ####[facility] LABCLIA [id number] [place] [id number] [place] Hemoglobin Ql (U) Negative Normal Negative [facility] Comment on above: Order Comment: Speci men Type: URINE SPECIMENOrdering Facility: [facility] Address: [address] [place] [address] Performed By: #### U AEX ####[facility] LABCLIA [id number] [place] [address] [place] Ketones Ql (U) Negative Normal Negative [facility] Comment on above: Order Comment: Speci men Type: URINE SPECIMENOrdering Facility: [facility] Address: [address] [place] [address] Performed By: #### U AEX ####[facility] LABCLIA [id number] [place] [id number] [place] Leukocyte esterase Test strip Ql (U) Negative Normal Negative [facility] Comment on above: Order Comment: Speci men Type: URINE SPECIMENOrdering Facility: [facility] Address: [address] [place] [address] Performed By: #### U AEX ####[facility] LABCLIA [id number] [place] [id number] [place] Nitrite Ql (U) Negative Normal Negative [facility] Comment on above: Order Comment: Speci men Type: URINE SPECIMENOrdering Facility: [facility] Address: [address] [place] [address] Performed By: #### U AEX ####[facility] LABIA [id number] [place] [address] [place] pH (U) 7.0 [pH] Normal <8.5 [facility] Comment on above: Order Comment: Speci men Type: URINE SPECIMENOrdering Facility: [facility] Address: [address] [place] [address] Performed By: #### U AEX ####[facility] LABIA [id number] [place] [address] [place] Protein (U) [Mass/Vol] Negative Normal Negative [facility] Comment on above: Order Comment: Speci men Type: URINE SPECIMENOrdering Facility: [facility] Address: [address] [place] [address] Performed By: #### U AEX ####[facility] [id number] [place] [address] [place] Specific gravity (U) [Rel density] 1.011 Normal 1.005-1.030 [facility] Comment on above: Order Comment: Speci men Type: URINE SPECIMENOrdering Facility: [facility] Address: [address] [place] [address] Performed By: #### U AEX ####[facility] [id number] [place] [address] [place] Urobilinogen Ql (U) 0.2 EU/dL Normal 0.2-1.0 EU/dL [facility] Comment on above: Order Comment: Speci men Type: URINE SPECIMENOrdering Facility: [facility] Address: [address] [place] [address] Performed By: #### U AEX ####[facility] LABIA [id number] [place] [id number] [place] Ferritin SerPl-mCncon 03-04- 2025 Ferritin [Mass/Vol] 667.0 ng/mL High 14.7-205.1 [facility] Comment on above: Order Comment: Anish mecca Type: BLOOD SPECIMENOrdering Facility: [facility] Address: [address] [place] [address] Performed By: #### 2 132-9, 2276-4, 93875-7, 62093-5 ####[facility] LABCLIA [id number] [place] [address] [place] GGT SerPl-cCncon 12-17-2024 Gamma glutamyl transferase [Catalytic activity/Vol] 43 U/L Normal 6-46 [facility] Comment on above: Order Comment: Anish wing Type: BLOOD SPECIMENOrdering Facility: [facility] Address: [address] [place] [address] Performed By: #### 1 8262-6, 2324-2, 48043-3 ####[facility] LABIA [id number] [place] [address] [place] HbA1c (Bld)on 12-17-2024 Average glucose Estimated from glycated hemoglobin (Bld) [Mass/Vol] 120 mg/dL Normal [facility] Comment on above: Order Comment: Anish wing Type: BLOOD SPECIMENOrdering Facility: [facility] Address: [address] [place] [address] Result Comment: eAG: (Estimated average glucose) is a calculated value from HgbA1c and is desk representative of the average blood glucose level in the last 2-3 month period. Performed By: #### 5 5454-3 ####[facility] LABIA [id number] [place] [address] [place] HbA1c (Bld) [Mass fraction] 5.8 % High 4.3-5.6 [facility] Comment on above: Order Comment: Anish mecca Type: BLOOD SPECIMENOrdering Facility: [facility] Address: [address] [place] [address] Result Comment: [place] Diabetes Association guidelines indicate that patients with HgbA1c in the range 5.7-6.4% are at increased risk for development of diabetes, and intervention by lifestyle modification may be beneficial. HgbA1c greater or equal to 6.5% is considered diagnostic of diabetes. Performed By: #### 5 5454-3 ####[facility] LABCLIA [id number] [address] [address] [place] Iron and Iron binding capaci ty panelon 12-17-2024 Iron [Mass/Vol] 73 ug/dL Normal 41-186 [facility] Comment on above: Order Comment: Speci men Type: BLOOD SPECIMENOrdering Facility: [facility] Address: [address] [place] [address] Performed By: #### 2 132-9, 2276-4, 57604-6, 23453-8 ####[facility] LABIA [id number] [place] [address] [place] Iron binding capacity [Mass/Vol] 302 ug/dL Normal 232-386 [facility] Comment on above: Order Comment: Speci men Type: BLOOD SPECIMENOrdering Facility: [facility] Address: [address] [place] [address] Performed By: #### 2 132-9, 6-4, 03664-8, 26673-6 ####[facility] LABIA [id number] [place] [id number] [place] Iron/TIBC [Molar ratio] 24.2 % Normal 15.0-57.0 [facility] Comment on above: Order Comment: Speci men Type: BLOOD SPECIMENOrdering Facility: [facility] Address: [address] [place] [address] Performed By: #### 2 132-9, 6-4, 93179-8, 77785-7 ####[facility] LABIA [id number] [address] [address] [place] LPa SerPl-mCncon 12-17-2024 Lipoprotein a [Mass/Vol] 146 mg/dL High <30 [facility] Comment on above: Order Comment: Speci men Type: BLOOD SPECIMENOrdering Facility: [facility] Address: [address] [place] [address] Performed By: #### 1 884-6, 53499-4 ####[facility] LABCLIA [id number] [facility] [id number] [address] [place] Lipid 1996 panelon 5 Cholesterol [Mass/Vol] 190 mg/dL Normal <200 [facility] Comment on above: Order Comment: Speci men Type: BLOOD SPECIMENOrdering Facility: [facility] Address: [address] [place] [address] Result Comment: <200 mg/dL, Desirable 200-239 mg/dL, Borderline high >239 mg/dL, High Performed By: #### 3 024-7, 3016-3, 69781-9, 3084-1 ####[facility] LABCLIA [id number] [address], [facility]95 [place] Cholesterol in HDL [Mass/Vol] 60 mg/dL Normal >39 [facility] Comment on above: Order Comment: Speci men Type: BLOOD SPECIMENOrdering Facility: [facility] Address: [address] [place] [address] Result Comment: 40-5 9 mg/dL, Acceptable >59 mg/dL, High: Negative risk factor for coronary heart disease <40 mg/dL, Low: Positive risk factor for coronary heart disease Performed By: #### 3 024-7, 3016-3, 77800-1, 3084-1 ####[facility] LABCLIA [id number] [address], [facility]95 [place] Cholesterol in LDL [Mass/Vol] 106 mg/dL High <100 [facility] Comment on above: Order Comment: Speci men Type: BLOOD SPECIMENOrdering Facility: [facility] Address: [address] [place] [address] Result Comment: <100 mg/dL, Optimal 100-129 mg/dL, Near optimal/above optimal 130-159 mg/dL, Borderline high 160-189 mg/dL, High >189 mg/dL, Very high Secondary prevention optimal LDL Cholesterol levels are recommended to be < 70 mg/dL Performed By: #### 3 024-7, 3016-3, 07838-5, 3084-1 ####[facility] LABCLIA [id number] [facility] [id number] [address] [place] Cholesterol in LDL/Cholesterol in HDL [Mass ratio] 1.77 {ratio} Normal <2.54 [facility] Comment on above: Order Comment: Speci men Type: BLOOD SPECIMENOrdering Facility: [facility] Address: [address] [place] [address] Result Comment: Refe gosiace: 1. National Cholesterol Education Program ATP III Guideline At-A-Glance Quick Desk Reference: National Heart, Lung, and Blood Blanchard. National Institutes of Health. 2001: NIH Publication No. 01-3305. 2. An International Atherosclerosis Society position paper: global recommendations for the management of dyslipidemia: executive summary, Atherosclerosis. 2014: 232(2):410-413. Performed By: #### 3 024-7, 3016-3, 10886-7, 3084-1 ####[facility] LABCLIA [id number] [address] [place] [address] [place] Cholesterol in VLDL [Mass/Vol] 24 mg/dL Normal <30 [facility] Comment on above: Order Comment: Speci men Type: BLOOD SPECIMENOrdering Facility: [facility] Address: [address] [place] [address] Performed By: #### 3 024-7, 3016-3, 97326-0, 3084-1 ####[facility] LABCLIA [id number] [facility] [id number] [address] [place] Cholesterol non HDL [Mass/Vol] 130 mg/dL High <130 [facility] Comment on above: Order Comment: Speci men Type: BLOOD SPECIMENOrdering Facility: [facility] Address: [address] [place] [address] Result Comment: <130 mg/dL, Optimal 130-159 mg/dL, Near optimal/above optimal 160-189 mg/dL, Borderline high 190-219 mg/dL, High >219 mg/dL, Very high Secondary prevention optimal non HDL Cholesterol levels are recommended to be <100 mg/dL Performed By: #### 3 024-7, 3016-3, 98296-8, 3084-1 ####[facility] LABCLIA [id number] [facility] [address], [place] [address] [place] Cholesterol.total/Cho lesterol in HDL [Mass ratio] 3.17 {ratio} Normal <5.10 [facility] Comment on above: Order Comment: Speci men Type: BLOOD SPECIMENOrdering Facility: [facility] Address: [address] [place] [address] Performed By: #### 3 024-7, 3016-3, 63406-3, 308- ####[facility] LABCLIA [id number] [facility] [address], [address] [place] FASTING TIME 12 hrs Normal [facility] Comment on above: Order Comment: Speci men Type: BLOOD SPECIMENOrdering Facility: [facility] Address: [address] [place] [address] Performed By: #### 3 024-7, 3016-3, 74022-8, 3083- ####[facility] LABCLIA [id number] [facility] [address], [place] [address] [place] Triglyceride [Mass/Vol] 120 mg/dL Normal <150 [facility] Comment on above: Order Comment: Speci men Type: BLOOD SPECIMENOrdering Facility: [facility] Address: [address] [place] [address] Result Comment: <150 mg/dL, Normal 150-199 mg/dL, Borderline high 200-499 mg/dL, High >499 mg/dL, Very high Performed By: #### 3 024-7, 3016-3, 03854-1, 3084-1 ####[facility] LABCLIA [id number] [facility] [id number] [place], [place] [address] [place] KATE SCREENING W [...] Interpretation * * * * RESULT: [facility] [address] [facility] [address] [place] [address] #[id number] - KATE SCREENING W RADHA EX HLTH [...] Ambar Lugo M.D. Electronically signed on: 12/17/2024 Sales And Marketing Representative: ORTEGA Transcribe Date/Time: Dec 17 2024 10:51A Dictated by : AMBAR LUGO MD This examination was interpreted and the report reviewed and electronically signed by: AMBAR LUGO MD on Dec 17 2024 1:10PM EST [id number] Normal [facility] T4 Free SerPl-mCncon 025 Free T4 [Mass/Vol] 1.7 ng/dL Normal 0.9-1.7 [facility] Comment on above: Order Comment: Speci men Type: BLOOD SPECIMENOrdering Facility: [facility] Address: [address] [place] [address] Performed By: #### 3 024-7, 3016-3, 45163-5, 3084-1 ####[facility] LABCLIA [id number] [place] [address] [place] TSH SerPl-aCncon 12-17-2024 TSH Qn 1.780 m[IU]/L Normal 0.270-4.200 [facility] Comment on above: Order Comment: Speci men Type: BLOOD SPECIMENOrdering Facility: [facility] Address: [address] [place] [address] Performed By: #### 3 024-7, 3016-3, 92554-4, 3084-1 ####[facility] LABIA [id number] [address] [place] Urate SerPl-mCncon 5 Urate [Mass/Vol] 6.3 mg/dL Normal 2.5-6.6 [facility] Comment on above: Order Comment: Speci men Type: BLOOD SPECIMENOrdering Facility: [facility] Address: [address] [place] [address] Performed By: #### 3 024-7, 3016-3, 28669-4, 3084-1 ####[facility] LABIA [id number] [place] [address] [place] VASCULAR SCREENING TESTon VASCULAR SCREENING TEST Non-Invasive Vascular Laboratory [facility] A17 Vascular Screening Bilateral/Complete Date of service/time: 12/17/2024 8:42:06 AM Name: MRS. JOSH HUFFMAN Date of : 1960 Age: 64 years Gender: F Clinical Indication Screening for peripheral vascular disease. Cardiovascular Risk Factors -- History of hyperlipidemia: No History of hypertension: [...] physician: Jose Pratt MD, RPVI Final CC [facility] : [id number] See Link below for Image Normal [facility] Vit B12 SerPl-mCncon 025 Cobalamin (Vitamin B12) [Mass/Vol] 1009 pg/mL Normal 232-1245 [facility] Comment on above: Order Comment: Speci men Type: BLOOD SPECIMENOrdering Facility: [facility] Address: [address] [place] [address] Performed By: #### 2 132-9, 2276-4, 62761-7, 16305-9 ####[facility] LUCA [id number] QIANA COLEMAN [place] [id number] [place] Juan Pablo 11-18-2024 CNPN Telephone (EXEPMN) ----- HUFFMANJOSH Tan ([id number]) 1960 F Date Time Provider Department 11/18/24 DAVID HULL EXEPMN During your visit today, we recorded the following information about you: Rubi Pandey RN 11/18/2024 3:51 PM Signed Previsit call completed. confirmed. Reviewed department guidelines/changes with pt in regard to covid 19-pt verbalized understanding. Additional consults: None Q: will email Dr Hull per Dr Partida's 2022 letter I recommend you have another CT angiogram of the chest in 1-2 years to monitor the diameter of the ascending aorta." Do you want to order one? Rubi Pandey, RN 11/19/2024 7:40 AM Signed David [...] for Visit: Nurse Triage Call [[phone]] Cmt: [facility] 12/17 Prescriptions as of 11/19/2024 - celecoxib [...] once daily. Includes Dandelion root 50mg - lisinopril-hydrochlorothi azide 10-12.5 mg per tablet Take 1 tablet [...] exercise stress test [R94.3*08/01/2023 Encounter Status:Closed by RUBI PANDEY on 11/19/24 [facility] CRPon 10-21-2024 C-REACTIVE PROT 3.19 mg/L High 0.0-3.0 [facility] Comment on above: Result Comment: C-Re active Protein (CRP) provides useful information for the diagnosis, therapy and monitoring of inflammatory processes and associated diseases. For the evaluation of Relative Risk for Cardiovascular Disease, a High Sensitivity CRP (HSCRP) should be ordered. Performed By: #### L 501.6710, L101.9900 #### [facility] [address] [place], [address] Erythrocyte Sed Rateon 10-21 SED RATE 5 mm/hr Normal 0-30 [facility] Comment on above: Performed By: #### L 501.6710, L101.9900 #### [facility] [address] [place], [address] Internal Medicine Office Vis iton 10-21-2024 Internal Medicine Office Visit [facility] [address] [place] [address] [place] [address] OFFICE VISIT Date of Service: 10/21/24 MR#: [id number] Acct: [id number] Name: JOSH HUFFMAN Rep #: [id number] : 1960 Provider: Dr. Chester lockett MD Age/Sex: 64/F Location: [facility] Status: Signed Intake Vital Signs 10/21/24 10:59 Weight: 223 lb BP 122/72 H Blood Pressure Location Lt brachial Position Sitting Respiration 16 Pulse 63 Pulse Source Monitor Temp 97.2 F L Temp Source Temporal Pulse Oximetry (%) 99 Oxygen Delivery Method room air Intake Visit Reasons: SEVERE HEADACHE Chief Complaint: severe head ache Local Announcer Required: No Accompanied by: Self Is patient [...] or ur (more content not included)... Normal [facility] Office Vis paulina 09-18-2024 Internal Medicine Office Visit [facility] [place] [address] [place] [address] OFFICE VISIT Date of Service: 09/18/24 MR#: [id number] Acct: [id number] Name: JOSH HUFFMAN Rep #: [id number] : 1960 Provider: Dr. Chester lockett MD Age/Sex: 64/F Location: [facility] Status: Signed Intake Vital Signs 09/18/24 10:51 Weight: 220 lb BP 128/80 H Blood Pressure Location Lt brachial Position Sitting Respiration 16 Pulse 67 Pulse Source Monitor Temp 97.0 F L Temp Source Temporal Pulse Oximetry (%) 98 Oxygen Delivery Method room air Intake Visit Reasons: 6 M FU Chief Complaint: 6m f/u Local Announcer Required: No Accompanied by: Self Is patient [...] end of June following a trip to [place]. For the most part, back to her [...] exertion, ex (more content not included)... Normal [facility] Basic Metabolic Profile (BMP )on 09-16-2024 BUN/CRE 16.9 RATIO Normal 10-20 [facility] Comment on above: Performed By: #### L 501.6710, L101.9900 #### [facility] [address] [place], [address] CA,Total 9.6 mg/dL Normal 8.5-10.1 [facility] Comment on above: Performed By: #### L 501.6710, L101.9900 #### [facility] [address] [place], [address] Chloride [Moles/Vol] 99 mmol/L Normal 98-107 [facility] Comment on above: Performed By: #### L 501.6710, L101.9900 #### [facility] [address] [place], [address] CO2 [Moles/Vol] 29.0 mmol/L Normal 21.0-32.0 [facility] Comment on above: Performed By: #### L 501.6710, L101.9900 #### [facility] [address] [place], [address] Creatinine [Mass/Vol] 0.77 mg/dL Normal 0.55-1.02 [facility] Comment on above: Result Comment: The validity of the calculated GFR GFRAA in patients over 70 years has not been determined. Clinical correlation is essential. Performed By: #### L 501.6710, L101.9900 #### [facility] [address] [place], [address] EST GFR - AA 96 mL/min Normal >60 [facility] Comment on above: Result Comment: Afri can Eritrean GFR Calc Performed By: #### L 501.6710, L101.9900 #### [facility] [address] [place], [address] GAP 5 Normal 5-15 [facility] Comment on above: Performed By: #### L 501.6710, L101.9900 #### [facility] [address] [place], [address] GFR/1.73 sq M.predicted among non-blacks MDRD (S/P/Bld) [Vol rate/Area] 80 mL/min/{1.73_m2} Normal >60 [facility] Comment on above: Result Comment: Non- GFR Calc Performed By: #### L 501.10, L101.9900 #### [facility] [address] [place], [address] Glucose [Mass/Vol] 86 mg/dL Normal 74-106 [facility] Comment on above: Performed By: #### L 501.10, L101.9900 #### [facility] [address] [place], [address] Potassium [Moles/Vol] 3.9 mmol/L Normal 3.5-5.1 [facility] Comment on above: Performed By: #### L 501.6710, L101.9900 #### [facility] [address] [place], [address] Sodium [Moles/Vol] 133 mmol/L Low 136-145 [facility] Comment on above: Performed By: #### L 501.6710, L101.9900 #### [facility] [address] [place], [address] Urea nitrogen [Mass/Vol] 13 mg/dL Normal 7-18 [facility] Comment on above: Performed By: #### L 501.6710, L101.9900 #### [facility] [address] [place], [address] Thyroid Stim Hormone (TSH)on 09-16-2024 TSH 1.100 uIU/mL Normal 0.358-3.740 [facility] Comment on above: Performed By: #### L 501.6710, L101.9900 #### [facility] [address] [place], [address] Vitamin D,25 Hydroxyon 09-16 Vitamin D 25-OH 79.9 ng/mL Normal [facility] Comment on above: Result Comment: Nelda min D 25(OH) Status Range Deficiency <20 ng/mL (50nmol/L) Insufficiency 20 - 30 ng/mL (50 - 75 nmol/L) Sufficiency 30 - 100 ng/mL (75 - 250 nmol/L) Toxicity >100 ng/mL (>250 nmol/L) Performed By: #### L 501.6710, L101.9900 #### [facility] [address] [place], [address] CNOVon 06-24-2024 CNOV Office Visit (TALON ) ----- JOSH HUFFMAN ([id number]) 1960 F Date Time Provider Department 06/24/24 10:15 AM AVI DOBBINS During your visit today, we recorded the following information about you: Avi Dobbins MD 06/24/2024 11:11 AM Signed Avi Dobbins MD Department of Orthopaedics Orthopaedics [address] [facility] [address] Dept: [phone] Dept June 24, 2024 CHIEF COMPLAINT: Follow [...] knee joint Informed Consent Consent Obtained: Verbal [place] Protocol A moment to CARE was completed. [...] follow-up 1988: HEART SURGERY HX Comment: at [facility], atrial septal defect repair 2002: LASIK; [...] mouth once daily. Includes Dandelion root 50mg lisinopril-hydrochlorothi azide 10-12.5 mg per tablet Take 1 tablet [...] DOBBINS [760 (more content not included)... [facility] Large Joint Arthro/Inj: R kn ee jointon 06-24-2024 Avi Dobbins MD 06/24/2024 11:11 AM Large Joint Arthro/Inj: R knee joint Informed Consent Consent Obtained: Verbal [place] Protocol A moment to CARE was completed. [...] Plan of Care Visit completed when applicable [facility] CNOVon 06-03-2024 CNOV Office Visit (AMBIKAWS ) ----- JOSH HUFFMAN ([id number]) 1960 F Date Time Provider Department 06/03/24 12:45 PM AVI DOBBINS During your visit today, we recorded the following information about you: Avi Dobbins MD 06/03/2024 1:54 PM Signed Avi Dobbins MD Department of Orthopaedics Orthopaedics [address] [facility] [address] Dept: [phone] Dept June 03, 2024 CHIEF COMPLAINT: Established [...] one at time. She is leaving for [place] 2 weeks ago and will be doing some hiking. ASSESSMENT: M25.561 Acute pain of right knee (primary encounter diagnosis) PLAN: She does Konik tweaked the knee while playing with her grandchildren. Will try some strengthening and an anti-inflammatory for a few weeks. If she continues to have some troubles, would recommend a cortisone injection before her [place] trip. We can see her back on [...] follow-up 1988: HEART SURGERY HX Comment: at [facility], atrial septal defect repair 2002: SASK[place]; [...] mouth once daily. Includes Dandelion root 50mg lisinopril-hydrochlorothi azide 10-12.5 mg per tablet Take 1 tablet [...] 60 capsule (more content not included)... [facility] ANES POSTPROC EVALon 024 ANES POSTPROC EVAL HNO ID: [id number] Author: MELLY BRITTON MD Service: Anesthesiology Author Type: Anesthesiologist Type: Anesthesia Postprocedure Evaluation Filed: 02/07/2024 13:03 Note Text: POST ANESTHESIA EVALUATION NOTE : 1960 Procedure Summary Date: 02/07/24 Room / Location: [place] [address] / [place] Anesthesia Start: 1135 Anesthesia Stop: 1256 [...] February 07, 2024 TIME: 1:03 PM CSN: [id number] [facility] ANES PRE-OPon 02-07-2024 ANES PRE-OP HNO ID: [id number] Author: MELLY BRITTON MD Service: Anesthesiology Author Type: Anesthesiologist Type: Anesthesia Preprocedure Evaluation Filed: 02/07/2024 10:14 Note Text: ANESTHESIOLOGY DAY OF SURGERY NOTE : 1960 Procedure Information Date/Time: 02/07/24 1046 Procedure: ARTHROSCOPY KNEE MENISCECTOMY MEDIAL OR LATERAL (Right: Knee) Location: NE OR02 / NE OR Surgeons: Avi Dobbins MD Estimated body mass index is 32.34 kg/m? as calculated from the following: Height as of this encounter: 175.3 cm (5' 9"). Weight as of this encounter: 99.3 kg [...] none. Vitals Value Taken Time BP 163/82 02/07/24 0938 Pulse Resp 18 02/07/24 0938 Temp 36.6 ?C (97.9 ?F) 02/07/24 0938 SpO2 98 % 02/07/24 0938 Facility-Administered Medications as of 02/07/2024 Medication Dose [...] once daily. Includes Dandelion root 50mg - lisinopril-hydrochlorothi azide 10-12.5 mg per tablet Take 1 tablet by mouth every morning. I have interviewed and examined the patient. I have reviewed the medical record and/or the pre-anesthesia evaluation, pertinent labs, and test results. This contains updated information obtained within 48 hours of Surgery/Procedure. SIGNATURE: Melly Britton MD PATIENT NAME: Josh Huffman DATE: February 07, 2024 TIME: 10:14 AM CSN: [id number] [facility] OPERATIVE NOon 02-07-2024 OPERATIVE NO HNO ID: [id number] Author: AVI DOBBINS MD Service: Orthopaedic Surgery Author Type: Physician Type: Operative Report Filed: 02/07/2024 12:56 Note Text: OPERATIVE/PROCEDURE REPORT LOG ID: [id number] Surgery/Procedure Date: 02/07/2024 Incision/Procedure Start Time: 12:01 PM Incision Close/Procedure End Time: 12:42 PM Surgeon(s)/Proceduralist( s) and Electrician'S Assistant(s): Surgeon(s) and Role: * Avi Dobbins MD - Primary Physician Electrician'S Assistant: Roxanne Easton PA-C; Courtney Elise PA-C Procedure(s): right knee, arthroscopic medial meniscectomy, [...] There w (more content not included)... Normal [facility] Serum or plasma thyroid stim ulating hormone (TSH) measurement (units/volume)Ordered By: Nubia Sage on 01-05-2024 TSH Qn 1.20 uIU/mL 0.358-3.74 [facility] Thin prep Papanicolaou smear with manual screeningOrdered By: Nubia Sage on 01-05-2024 Thin prep Papanicolaou smear with manual screening 1.59 ng/dL 0.76-1.46 [facility] - Chemistry and C hemistry - challengeOrdered By: Nubia Sage on 10-17-2023 Free T4 [Mass/Vol] 1.19 ng/dL 0.76-1.46 [facility] No Panel InformationOrdered By: Nubia Sage on 10-17-2023 Thyroid Stimulating Hormone (TSH) 3.81 uIU/mL 0.358-3.[address] [facility] [address] ABD/PEL WO IVCONon 2022 [facility] HIV 1+2 Ab IA Qlon 3 HIV 1 and 2 Ab IA.rapid Nom [facility] HIV 1+2 Ab+HIV1 p24 Ag IA Ql Non-Reactive Nonreactive [facility] HIV immunoassay testing algorithm interpretation (S/P/Bld) [Interp] [facility] No Panel Informationon 08-01 [facility] Basophil percentageOrdered B y: Nubia Sage on 05-19-2023 Bilirubin [Mass/Vol] 0.50 mg/dL 0.20-1.00 [facility] Comment on above: For patients on eltr ombopag therapy, use of Dimension [place] TBIL is not recommended. Chloride [Moles/Vol] 100 mmol/L 98-107 [facility] Cholesterol [Mass/Vol] 213 mg/dL <200 [facility] Comment on above: <200 mg/dL Desirable 200-240 mg/dL Borderline >240 mg/dL High Risk Glucose [Mass/Vol] 93 mg/dL 74-106 [facility] Potassium [Moles/Vol] 3.8 mmol/L 3.5-5.1 [facility] Protein [Mass/Vol] 7.4 g/dL 6.4-8.2 [facility] Sodium [Moles/Vol] 135 mmol/L 136-145 [facility] Triglyceride [Mass/Vol] 161 mg/dL <199 [facility] Comment on above: The drugs N-Acetylcy steine and Metamizole may falsely depress this assay.Serum Triglycerides Reference Interval Normal <150 mg/dL Borderline high 150 - 199 mg/dL High 200 - 499 mg/dL Very High > or = 500 mg/dL Laboratory - Chemistry and C hemistry - challengeOrdered By: Nubia Sage on 05-19-2023 ALP [Catalytic activity/Vol] 61 U/L 45-117 [facility] ALT [Catalytic activity/Vol] 28 U/L 13-56 [facility] CO2 [Moles/Vol] 28.0 mmol/L 21.0-32.0 [facility] Globulin (S) [Mass/Vol] 3.6 g/dL 2.2-4.2 [facility] Urea nitrogen/Creatinine [Mass ratio] 18.2 mg/mg 10-20 [facility] No Panel InformationOrdered By: Nubia Sage on 05-19-2023 Estimated GFR (MDRD) Amer 97 mL/min >60 [facility] Comment on above: GFR Calc Estimated GFR (MDRD) Non-Af Amer 80 mL/min >60 [facility] Comment on above: Non- GFR Calc No Panel InformationOrdered By: Edy Salcedo on 05-19-2023 Urine Microalbumin/Creatini ne Ratio 8.4 mg/g CRE <30 [facility] Serum or plasma albumin bird urement (mass/volume)Ordered By: Nubia Sage on 05-19-2023 Albumin [Mass/Vol] 3.8 g/dL 3.2-5.0 [facility] Serum or plasma albumin/glob ulin mass ratioOrdered By: Nubia Sage on 05-19-2023 Albumin/Globulin [Mass ratio] 1.1 {ratio} 0.9-2.4 [facility] Serum or plasma calcium bird urement (mass/volume)Ordered By: Nubia Sage on 05-19-2023 Calcium [Mass/Vol] 9.6 mg/dL 8.5-10.1 [facility] Serum or plasma cholesterol in HDL measurement (mass/volume)Ordered By: Nubia Sage on 05-19-2023 Cholesterol in HDL [Mass/Vol] 70 mg/dL >40 [facility] Comment on above: The drugs N-Acetylcy steine and Metamizole may falsely depress this assay. Reference Range HDL <40 mg/dL Low HDL Cholesterol HDL >or= 60 mg/dL High HDL Cholesterol Serum or plasma cholesterol in VLDL measurement (mass/volume)Ordered By: Nubia Sage on 05-19-2023 Cholesterol in VLDL [Mass/Vol] 32 mg/dL 5-40 [facility] Serum or plasma creatinine m easurement (mass/volume)Ordered By: Nubia Sage on 05-19-2023 Creatinine [Mass/Vol] 0.77 mg/dL 0.55-1.02 [facility] Comment on above: The validity of the calculated GFR & GFRAA in patients over 70 years has not been determined. Clinical correlation is essential. Serum or plasma low density lipoprotein (LDL) cholesterol measurement (mass/volume)Ordered By: Nubia Sage on 05-19-2023 Cholesterol in LDL [Mass/Vol] 111 mg/dL 0-130 [facility] Serum or plasma urea nitroge n measurement (mass/volume)Ordered By: Nubia Sage on 05-19-2023 Urea nitrogen [Mass/Vol] 14 mg/dL 7-18 [facility] Thin prep Papanicolaou smear with manual screeningOrdered By: Nubia Sage 05-19-2023 Thin prep Papanicolaou smear with manual screening 32 U/L 15-37 [facility] Thin prep Papanicolaou smear with manual screening 7 5-15 [facility] Thin prep Papanicolaou smear with manual screeningOrdered By: Edy Salcedo on 05-19-2023 Thin prep Papanicolaou smear with manual screening 15.7 mg/L NO RANGE EST. [facility] Urine creatinine measurement (mass/volume)Ordered By: Edy Salcedo on 05-19-2023 Creatinine (U) [Mass/Vol] 187.00 mg/dL NO RANGE EST. [facility] - Chemistry and C hemistry - challengeOrdered By: Nubia Sage on 01-26-2023 Free T4 [Mass/Vol] 1.10 ng/dL 0.76-1.46 [facility] No Panel InformationOrdered By: Nubia Sage on 01-26-2023 Thyroid Stimulating Hormone (TSH) 1.99 uIU/mL 0.358-3.74 [facility] No Panel Informationon 08-24 Thyroid Stimulating Hormone (TSH) 3.27 uIU/mL 0.358-3.74 [facility] Work Phone: No Panel Informationon 07-20 Thyroid Stimulating Hormone (TSH) 0.28 uIU/mL 0.358-3.74 [facility] Work Phone: No Panel Informationon 04-25 Thyroid Stimulating Hormone (TSH) 0.36 uIU/mL 0.358-3.74 [facility] Work Phone: CNOVon 01-06-2021 CNOV Office Visit (AGHWW1 ) ----- JOSH HUFFMAN ([id number]) 1960 F Date Time Provider Department 01/06/21 [...] - ASD (atrial septal defect) repaired at [facility] at age 27 - Heel spur - HTN (hypertension) - Hypothyroid levothyroxine 75 mcg - Menopausal state - (normal spontaneous vaginal delivery) 1987, 1989, 1993 1987: 8'12"; 1989 9'3"; 1993: 9'1" - Pap smear for cervical cancer screening 2015 - Plantar fasciitis - Psoriasis - TIA (transient ischemic attack) 1987 during first , diagnosed ASD, repaired at [facility] after delivery PAST SURGICAL HISTORY Procedure Laterality Date - EXTENSIVE FOOT SURGERY - HEART SURGERY HX 1987 at [facility], atrial septal defect repair - LASIK [...] cap Take by mouth twice daily. - lisinopril-hydrochlorothi azide 10-12.5 mg per tablet Take 1 tablet by mouth once daily. - metoprolol succinate XL, long acting, (TOPROL XL) 100 mg Tb24 Take by mouth. No current facility-administered medications for this visit. ALLERGIES No Known Allergies Resp 18 Ht 5' 9.5" (1.77m) Wt 225 lb (102.1kg) BMI 32.76 [...] other day over the next 2-4 weeks) [email or web address] Slow increase in exercise and walking. Please slowly increase your time/distance every other day. This should increase over the next 4-6 weeks to your preferred distance. Referring Provider: GARY KUMAR [[id number]] Allergies As of Date: 01/06/2021 (No Known [...] Resolved Hypothyroi (more content not included)... Normal [facility] HISTORY PHYSICALon HISTORY PHYSICAL HNO ID: [id number] Author: Leticia Brandon Service: Anesthesiology Author Type: Nurse Practitioner Type: HANDP Filed: 12/25/2020 1:24 PM Note Text: HISTORY AND PHYSICAL EXAMINATION Josh Tan Huffman 1960 SERVICE DATE: 12/25/2020 SERVICE TIME: [...] - ASD (atrial septal defect) repaired at [facility] at age 27 - Heel spur - HTN (hypertension) - Hypothyroid levothyroxine 75 mcg - Menopausal state - (normal spontaneous vaginal delivery) 1987, 1989, 1993 1987: 8'12"; 1989 9'3"; 1993: 9'1" - Pap smear for cervical cancer screening 2016 - Plantar fasciitis - Psoriasis - TIA (transient ischemic attack) 1987 during first , diagnosed ASD, repaired at [facility] after delivery PAST SURGICAL HISTORY Procedure Laterality Date - EXTENSIVE FOOT SURGERY - HEART SURGERY HX 1987 at [facility], atrial septal defect repair - LASIK [...] Comment: scotch, nightly - Drug use: Never Prior to Admission [...] mouth twice daily. 12/25/2020 at 0630 Yes lisinopril-hydrochlorothi azide 10-12.5 mg per tablet Take 1 tablet [...] oriented to person, place and time HEENT: Normocephalic/atraumatic, PERRL, Pharynx clear. LUNGS: Lungs CTA, respirations unlabored. CARDIAC: RRR, No murmur, Normal S1 and S2 ABDOMEN: Bowel sounds positive, soft, non-tender, non-distended. EXTREMITIES: Moving all extremities equal, no edema or cyanosis, fingernail beds pink. 12/25/20 1235 BP: 132/67 Pulse: (more content not included)... Normal [facility] NURSING PROGon 12-25-2020 NURSING PROG HNO ID: [id number] Author: Maryanne (Rn) GAVIN Vargas Service: ? Author Type: Registered Nurse Type: Nursing Progress Note Filed: 12/25/2020 2:38 PM Note Text: Dr tejeda spoke with patient discharge instructions reviewed with patient and both verbalize understanding Normal [facility] OPERATIVE NOon 12-25-2020 OPERATIVE NO HNO ID: [id number] Author: Dean Tejeda MD Service: Family Practice Author Type: Physician Type: Operative Report Filed: 12/25/2020 2:12 PM Note Text: Percutaneous US guided Fasciotomy Right Foot operative note: PATIENT NAME: Josh Huffman AGE: [age] year old DATE OF SURGERY: December 25, 2020 INFORMED CONSENT: I verify that I personally obtained Josh Huffman's consent which was signed and saved into the [facility] electronic health record. TIMEOUT: Audible timeout [...] the procedure. PHYSICIAN: Dean Tejeda MD LOCATION: [place], [place] PROCEDURE: Percutaneous US guided fasciotomy for [...] Tejeda MD 2:10 PM December 25, 2020 Normal [facility] CNOVon 12-02-2020 CNOV Office Visit (AGHWW1 ) ----- JOSH HUFFMAN ([id number]) 1960 F Date Time Provider Department 12/02/20 [...] improvement, and even worsening with treatment by fruit stuffer at outside location. Has been seen by Dr. Kumar and sent here for consideration for percutaneous fasciotomy. PAIN EVALUATION 12/02/2020 0821 Pain Level: 8 Pain Location: Heel-Right Description: Aching Duration Amount of Time: 2.5 Duration Units: Years Frequency: Continuous Intervention: Exercise;Medication PAST MEDICAL HISTORY Diagnosis Date - ASD (atrial septal defect) repaired at [facility] at age 27 - Heel spur - HTN (hypertension) - Hypothyroid levothyroxine 75 mcg - Menopausal state - (normal spontaneous vaginal delivery) 1987, 1989, 1993 1987: 8'12"; 1989 9'3"; 1993: 9'1" - Pap smear for cervical cancer screening 2016 - Plantar fasciitis - Psoriasis - TIA (transient ischemic attack) 1988 during first , diagnosed ASD, repaired at [facility] after delivery PAST SURGICAL HISTORY Procedure Laterality Date - EXTENSIVE FOOT SURGERY - HEART SURGERY HX 1987 at [facility], atrial septal defect repair - LASIK [...] cap Take by mouth twice daily. - lisinopril-hydrochlorothi azide 10-12.5 mg per tablet Take 1 tablet by mouth once daily. - metoprolol succinate XL, long acting, (TOPROL XL) 100 mg Tb24 Take by mouth. No current facility-administered medications for this visit. ALLERGIES No Known Allergies Resp 16 Ht 5' 9" (1.75m) Wt 230 lb (104.3kg) BMI 33.95 [...] patient today: Surgeries, including risks/benefits/recoveries ? Discussed risks/benefits/alternativ es including but not limited to tendo/fascia rupture, infection at operative site, joint infection, lack of success. Patient accepts risk and wishes to proceed. Consent form signed ? Patient signed consent today for procedure ? Will call to set up PCUST Return for By phone with carton filler for scheduling for percutaneous fasciotomy. Part of this note has been created using voice recognition software. It may con (more content not included)... Normal [facility] [place] 12-02-2020 [facility] (AGPOB1[facility] ----- JOSH HUFFMAN ([id number]) 1960 F Date Time Provider Department 12/02/20 [facility] your visit today, we recorded the [...] Encounter Status:Closed by NALLELY DIAZ on 12/02/20 [facility] CNOVon 11-26-2020 CN Office Visit (AGHWG1 ) ----- JOSH HUFFMAN ([id number]) 1960 F Date Time Provider Department 11/26/20 [...] treatment as included: multiple conservative treatments including [id number] and custom foot orthotics, supportive shoe gear, stretching exercises, boot immobilization, night splint, physical therapy as well as electromagnetic pulse treatments with little improvements of her symptoms. PM PAST MEDICAL HISTORY Diagnosis Date - ASD (atrial septal defect) repaired at [facility] at age 27 - Heel spur - HTN (hypertension) - Hypothyroid levothyroxine 75 mcg - Menopausal state - (normal spontaneous vaginal delivery) 1987, 1989, 1993 1987: 8'12"; 1989 9'3"; 1993: 9'1" - Pap smear for cervical cancer screening 2016 - Plantar fasciitis - Psoriasis - TIA (transient ischemic attack) 1987 during first , diagnosed ASD, repaired at [facility] after delivery MEDS Current Outpatient Medications [...] cap Take by mouth twice daily. - lisinopril-hydrochlorothi azide 10-12.5 mg per tablet Take 1 tablet [...] mood. Resp 16 Ht 175.3 cm (5' 9") Wt 104.8 kg (231 lb) BMI 34.11 [...] Negative straight (more content not included)... Normal [facility] MRI ANKLE WO IVCON RTon 02-0 MRI ANKLE WO IVCON RT Final Report DATE OF EXAM: Nov 19 2020 3:27PM [facility] 0164 - MRI ANKLE WO IVCON [...] and is suspected to be remotely torn. Sales And Marketing Representative: CHELSEA Transcribe Date/Time: Nov 20 2020 7:54A Dictated by : ISAMAR FITZPATRICK MD This examination was interpreted and the report reviewed and electronically signed by: ISAMAR FITZPATRICK MD on Nov 20 2020 8:11AM EST [id number] ) ----- JOSH HUFFMAN ([id number]) 1960 F Date Time Provider Department 11/05/20 [...] to have tried multiple conservative treatments including whjo-dub-pnhkkgr and custom foot orthotics, supportive shoe gear, [...] that currently, she has been using the uvqi-dac-tjqosmp inserts and stretching exercises. Notes that the [...] - ASD (atrial septal defect) repaired at [facility] at age 27 - Heel spur - HTN (hypertension) - Hypothyroid levothyroxine 75 mcg - Menopausal state - (normal spontaneous vaginal delivery) 1987, 1989, 1993 1987: 8'12"; 1989 9'3"; 1993: 9'1" - Pap smear for cervical cancer screening [...] cap Take by mouth twice daily. - lisinopril-hydrochlorothi azide 10-12.5 mg per tablet Take 1 tablet [...] 4-5 cigarettes/ (more content not included)... Normal [facility] Clinical Lists Update: Prelo ad Extendedon 05-02-2019 Tobacco smoking status ARIS Tobacco smoking status ARIS [facility] Work Phone: Clinical Summary: HMSPatient IDon 05-02-2019 OOP [facility] Work Phone: Office Visit: New - visi t with practice, Rm: 05-02-2019 NEGATED: Highlighted rowMRI (magnetic resonance imaging) history of the right foot on 03/2019 at Outside Facility [facility] Work Phone: Clinical Summary: Scanned Hi story Summaryon 05-01-2019 adl form etoh alcohol performance liquor [facility] Work Phone: Beta HCG ( test) Ql (U) 2 or more times per year [facility] Work Phone: comments about allergies None [facility] Work Phone: consumes three or more drinks of alcohol (beer, wine, liquor) daily or almost daily 2 drinks per day [facility] Work Phone: Data entered by patient exercise frequency 3 days per week [facility] Work Phone: Data entered by patient exercise type swimming [facility] Work Phone: data entered by patient, alcohol (ethanol or ETOH) use Yes [facility] Work Phone: Data entered by patient, allergy list I don't have any Drug AllergiesI don't have any Environmental AllergiesI don't have any Food Allergies [facility] Work Phone: data entered by patient, drug (of abuse) use No [facility] Work Phone: data entered by patient, Employer Name employed [facility] Work Phone: data entered by patient, exercise history Yes [facility] Work Phone: data entered by patient, father's medical history CancerHeart diseaseHigh blood pressure [facility] Work Phone: Data entered by patient, history of past surgeries Foot surgeryHeart cathTonsillectomy [facility] Work Phone: Data entered by patient, medication list aspirin-81 az-6-edfgikaedkpbiac-10 - 12.5 cl-6-fkpzyabbxfikhdj succinate-100 jb-2-ntsomqbsexkeuezkbg-7 5 Tcu-0-Ncmyvelam-33 mq-4-Xxmbswniptfpjvay-100 0 mq-9-Dmnkqyynpd-220 mg-1-Twice Daily [facility] Work Phone: data entered by patient, mother's medical history ArthritisHeart diseaseHigh blood pressure [facility] Work Phone: data entered by patient, past medical history High blood pressureHypothyroidism [facility] Work Phone: data entered by patient, social history, current smoker former smoker [facility] Work Phone: data entered by patient, social history, former smoker 1985 [facility] Work Phone: data entered by patient, social history, marital status [facility] Work Phone: Exercise vein comment Was walking an ave rage of 4 miles per day (maybe 4 days a week) at a medium pace until around August 2018 when my right foot began to hurt. [facility] Work Phone: father of patient is alive or [facility] Work Phone: father's medical history, comments prostate cancer spread to bone cancer. in 1998 (77 years old) of cancer complications [facility] Work Phone: Housing Type: apartment, house, long term, trailer, none house [facility] Work Phone: housing unit size (asthma environmental history, housing) (from single family to don't know) 2 floors [facility] Work Phone: medical history of patient's brother(s) AlcoholismObesity [facility] Work Phone: medical history of patient's brother(s), comments 59 years old. Is in a care home with sever alcohol dementia. [facility] Work Phone: medical history of patient's sister CancerMelanoma [facility] Work Phone: medical history of patient's sister, comments Malignant melanoma removed in 1992. Cancer free since then. 61 years old. [facility] Work Phone: mother of patient is alive or Alive [facility] Work Phone: mother's medical history, comments Heart attack in 1997. Pacemaker inserted 2016. She is 89 years old [facility] Work Phone: Number of dependent children No [facility] Work Phone: Other housed specified Second Floor of the house was where the three son's of ours grew up. We pretty much live on just the main floor now. [facility] Work Phone: Web entered surgical history comments Splenectomy (1968). Open heart surgery to close an atrial septal defect (1987). Laser surgery on greater and lesser saphenous veins (2017). [facility] Work Phone: Vital Signs Date Time Vital Sign Value Performing Clinician Facility 07-30-2025 11:49-0400 Body height 175.[address] Chester Valentine MD Work Phone: [facility] 07-30-2025 11:49-0400 Body mass index (BMI) [Ratio] 32.5 kg/m2 Dr. Chester Valentine MD Work Phone: [facility] 07-30-2025 11:49-0400 Body temperature 97 [degF] Dr. Chester Valentine MD Work Phone: [facility] 07-30-2025 11:49-0400 Body weight 99.[address] Chester Valentine MD Work Phone: [facility] 07-30-2025 11:49-0400 Diastolic blood pressure 78 mm[Hg] Dr. Chester Valentine MD Work Phone: [facility] 07-30-2025 11:49-0400 Heart rate 54 /min Dr. Chester Valentine MD Work Phone: [facility] 07-30-2025 11:49-0400 Respiratory rate 16 /min Dr. Chester Valentine MD Work Phone: [facility] 07-30-2025 11:49-0400 SaO2% (BldA) [Mass fraction] 97 % Dr. Chester Valentine MD Work Phone: [facility] 07-30-2025 11:49-0400 Systolic blood pressure 130 mm[Hg] Dr. Chester Valentine MD Work Phone: [facility] 06-18-2025 08:48-0400 Body height 175.[address] Chester Valentine MD Work Phone: [facility] 06-18-2025 08:48-0400 Body mass index (BMI) [Ratio] 32.2 kg/m2 Dr. Chester Valentine MD Work Phone: [facility] 06-18-2025 08:48-0400 Body temperature 97.8 [degF] Dr. Chester Valentine MD Work Phone: [facility] 06-18-2025 08:48-0400 Body weight 99.[address] Chester Valentine MD Work Phone: [facility] 06-18-2025 08:48-0400 Diastolic blood pressure 78 mm[Hg] Dr. Chester Valentine MD Work Phone: [facility] 06-18-2025 08:48-0400 Heart rate 66 /min Dr. Chester Valentine MD Work Phone: [facility] 06-18-2025 08:48-0400 Respiratory rate 16 /min Dr. Chester Valentine MD Work Phone: [facility] 06-18-2025 08:48-0400 SaO2% (BldA) [Mass fraction] 99 % Dr. Chester Valentine MD Work Phone: [facility] 06-18-2025 08:48-0400 Systolic blood pressure 132 mm[Hg] Dr. Chester Valentine MD Work Phone: [facility] 03-21-2025 09:12-0400 Body height 175.[address] Chester Valentine MD Work Phone: [facility] 03-21-2025 09:12-0400 Body mass index (BMI) [Ratio] 32.5 kg/m2 Dr. Chester Valentine MD Work Phone: [facility] 03-21-2025 09:12-0400 Body temperature 98.6 [degF] Dr. Chester Valentine MD Work Phone: [facility] 03-21-2025 09:12-0400 Body weight 99.[address] Chester Valentine MD Work Phone: [facility] 03-21-2025 09:12-0400 Diastolic blood pressure 72 mm[Hg] Dr. Chester Valentine MD Work Phone: [facility] 03-21-2025 09:12-0400 Heart rate 60 /min Dr. Chester Valentine MD Work Phone: [facility] 03-21-2025 09:12-0400 Respiratory rate 16 /min Dr. Chester Valentine MD Work Phone: [facility] 03-21-2025 09:12-0400 SaO2% (BldA) [Mass fraction] 97 % Dr. Chester Valentine MD Work Phone: [facility] 03-21-2025 09:12-0400 Systolic blood pressure 122 mm[Hg] Dr. Chester Valentine MD Work Phone: [facility] 12-17-2024 13:23-0500 Body height 175.3 cm David Hull MD Work Phone: [facility] 12-17-2024 13:23-0500 Body mass index (BMI) [Ratio] 32.44 kg/m2 David Hull MD Work Phone: [facility] 12-17-2024 13:23-0500 Body temperature 98.2 [degF] David Hull MD Work Phone: [facility] 12-17-2024 13:23-0500 Body weight 99.7 kg David Hull MD Work Phone: [facility] 12-17-2024 13:23-0500 Diastolic blood pressure 76 mm[Hg] David Hull MD Work Phone: [facility] 12-17-2024 13:23-0500 Heart rate 66 /min David Hull MD Work Phone: [facility] 12-17-2024 13:23-0500 Systolic blood pressure 112 mm[Hg] David Hull MD Work Phone: [facility] 12-17-2024 08:18-0500 Body height 175.3 cm Leon Christiano DO Work Phone: [facility] 12-17-2024 08:18-0500 Body mass index (BMI) [Ratio] 32.44 kg/m2 Leon Christiano DO Work Phone: [facility] 12-17-2024 08:18-0500 Body weight 99.66 kg Leon Christiano DO Work Phone: [facility] 01-24-2024 09:27-0400 Body height 175.3 cm [facility] 01-24-2024 09:27-0400 Body weight 99.34 kg [facility] 01-24-2024 09:27-0400 Respiratory rate 16 /min [facility] 09-11-2023 12:59-0500 Body height 175.3 cm Ashley Abarca MD Work Phone: [facility] 09-11-2023 12:59-0500 Body temperature 96.4 [degF] Ashley Abarca MD Work Phone: [facility] 09-11-2023 12:59-0500 Body weight 99.79 kg Ashley Abarca MD Work Phone: [facility] 09-11-2023 12:59-0500 Diastolic blood pressure 87 mm[Hg] Ashley Abarca MD Work Phone: [facility] 09-11-2023 12:59-0500 Heart rate 65 /min Ashley Abarca MD Work Phone: [facility] 09-11-2023 12:59-0500 Respiratory rate 12 /min Ashley Abarca MD Work Phone: [facility] 09-11-2023 12:59-0500 Systolic blood pressure 166 mm[Hg] Ashley Abarca MD Work Phone: [facility] 08-01-2023 10:05-0400 Diastolic blood pressure 85 mm[Hg] Allan Partida MD Work Phone: [facility] 08-01-2023 10:05-0400 Heart rate 80 /min Allan Partida MD Work Phone: [facility] 08-01-2023 10:05-0400 Systolic blood pressure 128 mm[Hg] Allan Partida MD Work Phone: [facility] 08-01-2023 09:57-0400 Body height 175.3 cm Allan Partida MD Work Phone: [facility] 08-01-2023 09:57-0400 Body temperature 97.7 [degF] Allan Partida MD Work Phone: [facility] 08-01-2023 09:57-0400 Body weight 98.1 kg Allan Partida MD Work Phone: [facility] 08-01-2023 08:26-0400 Body height 175.3 cm Leon Alvarado DO Work Phone: [facility] 08-01-2023 08:26-0400 Body weight 98.07 kg Leon Christiano DO Work Phone: [facility] NEGATED: Highlighted [id number] 09:35-0400 BMI (Body Mass Index) 33.2 kg/m2 Nubia Jeter LPN [facility] Work Phone: NEGATED: Highlighted [id number] 09:35-0400 Body weight 101.61 kg Nubia Jeter LPN [facility] Work Phone: NEGATED: Highlighted [id number] 09:35-0400 Body weight 102 kg Nubia Jeter LPN [facility] Work Phone: NEGATED: Highlighted [id number] 09:35-0400 BP Diastolic 89 mm[Hg] Nubia Jeter ENVIRONMENTAL FIELD SERVICES TECHNICIAN [facility] Work Phone: NEGATED: Highlighted [id number] 09:35-0400 BP Diastolic 99 mm[Hg] Nubia Jeter ENVIRONMENTAL FIELD SERVICES TECHNICIAN [facility] Work Phone: NEGATED: Highlighted [id number] 09:35-0400 BP Systolic 161 mm[Hg] Nubia Jeter ENVIRONMENTAL FIELD SERVICES TECHNICIAN [facility] Work Phone: NEGATED: Highlighted [id number] 09:35-0400 BP Systolic 155 mm[Hg] Nubia Jeter ENVIRONMENTAL FIELD SERVICES TECHNICIAN [facility] Work Phone: NEGATED: Highlighted [id number] 09:35-0400 Heart rate 2+ Nubia Jeter ENVIRONMENTAL FIELD SERVICES TECHNICIAN [facility] Work Phone: NEGATED: Highlighted [id number] 09:35-0400 Height 175.26 cm Nubia Jeter ENVIRONMENTAL FIELD SERVICES TECHNICIAN [facility] Work Phone: NEGATED: Highlighted [id number] 09:35-0400 Height 175 cm Nubia Jeter ENVIRONMENTAL FIELD SERVICES TECHNICIAN [facility] Work Phone: NEGATED: Highlighted [id number] 09:35-0400 Pulse (Heart Rate) 54 /min Nubia Jeter ENVIRONMENTAL FIELD SERVICES TECHNICIAN [facility] Work Phone: Encounters Encounter Date Encounter Type Care Provider Facility Start: 07-30-2025 End: 07-30-2025 Patient encounter procedure Alfredo NUÑEZ -[facility] Work Phone: Start: 07-30-2025 End: 07-30-2025 ambulatory Alfredo NUÑEZ Facility:[facility] Start: 07-28-2025 Non-patient / Non-visit Jailyn Caro MA -[facility] Work Phone: Start: 07-28-2025 ambulatory Chester Valentine Facili ty:[facility] Start: 07-28-2025 End: 07-28-[address] Chester Valentine MD -[facility] Work Phone: Start: 07-28-2025 End: 07-28-2025 ambulatory Chester Valentine Facility:[facility] Start: 06-18-2025 End: 06-18-[address] Chester Valentine MD Work Phone: [facility] Start: 06-18-2025 End: 06-18-[address] Chester Valentine MD -[facility] Work Phone: Start: 06-18-2025 End: 06-18-[address] Chester Valentine MD -[facility] Work Phone: Start: 06-18-2025 End: 06-18-[address] Chester Valentine MD Work Phone: -[facility] Start: 06-18-2025 End: 06-18-2025 ambulatory Chester Valentine Facility:[facility] Start: 04-30-2025 End: 04-30-[address] Chester Valentine MD Work Phone: -Physical Therapy Start: 04-30-2025 End: 04-30-[address] Chester Valentine MD -Physical Therapy Work Phone: Start: 04-10-2025 End: 04-10-2025 Patient encounter procedure Avi Dobbins MD Work Phone: [facility] Comment on above: Primary osteoarthrit is of first carpometacarpal joint of left hand (Primary Dx); Dupuytren's disease of palm Start: 04-10-2025 End: 04-10-2025 ambulatory AVI DOBBINS Facility:[facility] Start: 04-10-2025 End: 04-10-2025 Subsequent hospital visit by physician Xr [facility] Xray [facility] Comment on above: Left hand pain [M79. 642] Start: 04-03-2025 End: 04-03-2025 Orders Only Avi Dobbins MD Work Phone: Orthopaedics Comment on above: Left hand pain (Prim alona Dx) Start: 03-24-2025 End: 03-24-[address] Chester Valentine MD Work Phone: [facility] Work Phone: Start: 03-24-2025 End: 03-24-[address] Chester Valentine MD -[facility] Work Phone: Start: 03-24-2025 End: 03-24-2025 ambulatory Chester Valentine Facility:[facility] Start: 03-21-2025 End: 03-21-[address] Chester Valentine MD -[facility] Work Phone: Start: 03-21-2025 End: 03-21-[address] Chester Valentine MD [facility] Start: 03-21-2025 End: 03-21-[address] Chester Valentine MD Work Phone: [facility] Work Phone: Start: 03-19-2025 End: 03-19-[address] Chester Valentine MD Work Phone: [facility] Work Phone: Start: 03-19-2025 End: 03-19-[address] Chester Valentine MD -[facility] Work Phone: Start: 03-19-2025 End: 03-19-2025 ambulatory Chetser Valentine Facility:[facility] Start: 12-17-2024 End: 12-17-2024 Subsequent hospital visit by physician Ct 2 Main Qb (I-Stat) Radiology Comment on above: Encounter for screen ing for cardiovascular disorders [Z13.6] Start: 12-17-2024 End: 12-17-2024 Patient encounter procedure Shoe Stamper Work Phone: Internal Medicine Comment on above: Nutrition Assessment ; Patient Education Need for influenza v accination (Primary Dx); Need for vaccination; Routine general medical examination at a health care facility; Elevated Lp(a) Routine general medi deirdre examination at a health care facility (Primary Dx) Start: 12-17-2024 End: 12-17-2024 Subsequent hospital visit by physician Clinic Imaging Mammo Main Mammography Start: 12-17-2024 Encounter for genera l adult medical examination without abnormal findings [facility] Start: 12-17-2024 End: 12-17-2024 Patient encounter status David Hull MD Work Phone: [facility] Work Phone: Start: 12-17-2024 End: 12-17-2024 Subsequent hospital visit by physician Bone Density Main A21 2 Radiology Comment on above: Routine general medi deirdre examination at a health care facility [Z00.00] Start: 12-17-2024 Encounter for other specified special examinations [facility] Start: 12-17-2024 End: 12-17-2024 ambulatory Shoe Stamper Work Phone: Internal Medicine Start: 11-18-2024 End: 11-19-2024 Telephone encounter David Hull MD Work Phone: Internal Medicine Comment on above: Nurse Triage Call ([employer] 12/17) Start: 11-14-2024 End: 11-15-2024 Refill Courtney NUÑEZ-C Work Phone: Orthopaedics Comment on above: Refill Request Start: 10-21-2024 End: 10-21-2024 ambulatory [facility] Facility:[facility] Start: 10-21-2024 End: 10-21-2024 ambulatory [facility] Facility:[facility] Start: 09-18-2024 End: 09-18-2024 ambulatory [facility] Facility:[facility] Start: 09-16-2024 End: 09-16-2024 ambulatory [facility] Facility:[facility] Start: 09-01-2024 End: 09-02-2024 Refill Avi Dobbins MD Work Phone: Orthopaedics Comment on above: Refill Request Start: 06-24-2024 End: 06-24-2024 ambulatory NUBIA SAGE Facility:[facility] Start: 06-24-2024 End: 06-24-2024 Patient encounter procedure Avi Dobbins MD Work Phone: Orthopaedics Comment on above: Acute pain of right knee (Primary Dx); Primary osteoarthritis of right knee Start: 06-03-2024 End: 06-03-2024 ambulatory AVI DOBBINS Facility:[facility] Start: 06-03-2024 End: 06-03-2024 Patient encounter procedure Avi Dobbins MD Work Phone: Orthopaedics Comment on above: Acute pain of right knee (Primary Dx) Start: 03-25-2024 End: 03-25-2024 Patient encounter procedure Avi Dobbins MD Work Phone: Orthopaedics Comment on above: Complex tear of medi al meniscus of right knee as current injury, subsequent encounter (Primary Dx) Start: 03-15-[address] Britney Valentine MD Work Phone: [facility] Start: 02-19-2024 End: 02-19-2024 Patient encounter procedure Courtney NUÑEZ-C Work Phone: Orthopaedics Comment on above: Complex tear of medi al meniscus of right knee as current injury, subsequent encounter (Primary Dx); Primary osteoarthritis of right knee Start: 02-07-2024 End: 02-07-2024 ambulatory AVI DOBBINS Facility:[facility] Start: 01-24-2024 End: 01-24-2024 Admission to [facility] Start: 01-24-2024 End: 01-24-2024 ambulatory [facility] Pre Anesthesia Comment on above: Pre-op evaluation (P rimary Dx); Primary hypertension; Hypothyroidism, unspecified type; Ascending aorta dilation (4.3 cm on non-contrast CT 10/2019, and on CT angiogram 07/2023); Obesity, Class I, BMI 30-34.9; ASD (atrial septal defect); TIA (transient ischemic attack); Prediabetes; Hypercholesterolemia Start: 01-24-2024 End: 01-24-2024 Preprocedural examination done [facility] Work Phone: Start: 01-23-2024 ambulatory Avi Dobbins MD Work Phone: Orthopaedic Surgery [facility] Comment on above: Insurance did not pr e-approve my knee scope Start: 01-11-2024 End: 01-11-2024 Patient encounter procedure Avi Dobbins MD Work Phone: [facility] Comment on above: Complex tear of medi al meniscus of right knee as current injury, subsequent encounter (Primary Dx); Primary osteoarthritis of right knee Start: 01-05-2024 End: 01-05-2024 ambulatory [facility] Work Phone: Start: 01-05-2024 End: 01-05-2024 Patient encounter procedure [facility] Start: 12-30-2023 End: 12-30-2023 Subsequent hospital [...] right knee Start: 10-17-2023 End: 10-17-2023 ambulatory [facility] Work Phone: Start: 10-17-2023 End: 10-17-2023 Patient encounter procedure [facility] Start: 09-11-2023 End: 09-11-2023 Patient encounter procedure Ashley Abarca MD Work Phone: General Surgery Comment on above: Ventral hernia witho ut obstruction or gangrene Start: 09-08-2023 End: 09-08-2023 Subsequent hospital visit by physician [facility] (I-Stat) Work Phone: Cat Scan Comment on above: Ventral hernia witho ut obstruction or gangrene [K43.9] Start: 08-29-2023 Orders Only Roxi Baig APRN.PEN MAKER Work Phone: General Surgery Comment on above: Ventral hernia witho ut obstruction or gangrene (Primary Dx) Appointment (Imaging Needed Prior to Appointment/) Start: 08-01-2023 End: 08-01-2023 Subsequent hospital visit by physician Vale 2 Main Qb (I-Stat) Radiology Comment on above: Ascending aorta dila tion (HCC) [I77.810] Start: 08-01-2023 End: 08-01-2023 ambulatory Shoe Stamper Work Phone: [facility] Start: 08-01-2023 End: 08-01-2023 Nutrition therapy Shoe Stamper Work Phone: Internal Medicine Comment on above: Nutrition Assessment ; Patient Education Start: 08-01-2023 End: 08-01-2023 Subsequent hospital visit by physician Orth General Xray A21 Radiology Comment on above: Primary osteoarthrit is of right knee [M17.11] Start: 08-01-2023 End: 08-01-2023 Subsequent hospital visit by physician Clinic Imaging Mammo Main Mammography Start: 08-01-2023 End: 08-01-2023 Patient encounter status Allan Partida MD Work Phone: [facility] Start: 08-01-2023 End: 08-01-2023 Hearing test abnormal Claudia BORGES Work Phone: [facility] Work Phone: Start: 08-01-2023 End: 08-01-2023 Patient encounter procedure Claudia BORGES Work Phone: Audiology Comment on above: Abnormal [...] Medicine Comment on above: Nurse Triage Call ([facility]) Start: 05-19-2023 End: 05-19-2023 ambulatory [facility] Work Phone: Start: 05-19-2023 End: 05-19-2023 Patient encounter procedure [facility] Start: 01-26-2023 End: 01-26-2023 Patient encounter procedure [facility] Start: 08-24-2022 End: 08-24-2022 ambulatory [facility] Work Phone: Start: 08-24-2022 End: 08-24-2022 Patient encounter procedure [facility] Start: 07-20-2022 End: 07-20-2022 ambulatory [facility] Work Phone: Start: 07-20-2022 End: 07-20-2022 Patient encounter procedure [facility] Start: 04-25-2022 End: 04-25-2022 Patient encounter procedure [facility] Start: 01-11-2021 End: 01-11-2021 Patient encounter procedure JOSE MIGUEL HATHAWAY [facility] Start: 12-21-2020 End: 12-21-2020 Patient encounter procedure JOSE MIGUEL ASTUDILLOISINGER [facility] Start: 05-02-2019 End: 05-02-2019 Patient encounter procedure Spencer Rodriguez MD Work Phone: [facility] Work Phone: Procedures Date Procedure Procedure Detail Performing Clinician Start: 07-28-[address] Solo Valentine MD Work Phone: Comment on above: Performed at: [place] [id number] Director: Kashmir Jimenez PhD, Phone: [phone] Start: 07-28-2025 Antibody to centrome re measurement Dr. Chester Valentine MD Work Phone: Comment on above: Test not performed Start: 07-28-2025 Antibody to extracta ble nuclear antigen measurement Dr. Chester Valentine MD Work Phone: Comment on above: Test not performed Start: 07-28-2025 Antibody to IRWIN-[address] Chester Valentine MD Work Phone: Comment on above: Test not performed Start: 07-28-2025 Antibody to lupus La protein measurement Dr. Chester Valentine MD Work Phone: Comment on above: Test not performed Start: 07-28-2025 Antibody to SS-A measurement Dr. Chester Valentine MD Work Phone: Comment on above: Test not performed Start: 07-28-[address] Chester Valentine MD Work Phone: Comment on above: Test not performed Start: 07-28-[address] Chester Valentine MD Work Phone: Comment on above: Test not performed Start: 06-18-[address] Solo Valentine MD Work Phone: Comment on above: Performed at: [address] Director: Kashmir Jimenez PhD, Phone: [phone] Start: 04-10-2025 Radex hand minimum 3 views Avi Dobbins MD Work Phone: Start: 03-24-2025 X-ray of cervical spine Dr. Chester Valentine MD Work Phone: Start: 12-17-2024 PFIZER-BIONTECH COVI D-19 VACCINE AGE 12+ YR (COMIRNATY) David Hull MD Work Phone: Start: 12-17-2024 KATE SCREENING W [facility] David Hull MD Work Phone: Start: 12-17-2024 Unlisted computed tomography procedure David Hull MD Work Phone: Start: 12-17-2024 Lipid 1996 panel - S celina or Plasma Leon Alvarado DO Work Phone: Start: 06-24-2024 Arthrocentesis aspir [...] Work Phone: Start: 08-01-2023 HEARING SCREENING Frances Zapataruthann BOLDEN Work Phone: Start: 08-01-2023 Lipid 1996 panel - S celina or Plasma Leon Ortizhowie MCDOWELL Work Phone: Start: 10-31-2019 Lipid 1996 panel [...] Author Start: 12-17-2029 Lipid panel Lipid Screening [facility] Start: 08-01-2028 Lipid 1996 panel - Serum or Plasma Lipid Screening [facility] Start: 08-01-2028 Lipid panel Lipid Screening [facility] Start: 12-18-2027 Diabetes Screening Diabetes Screening [facility] Start: 01-30-2027 Diabetes Screening Diabetes Screening [facility] Start: 10-17-2026 Screening for malignant neoplasm of colon [facility] Start: 08-01-2026 Diabetes Screening Diabetes Screening [facility] Start: 05-19-2026 Urine microalbumin profile DTaP,Tdap,Td Vaccine (2 - Td or Tdap) [facility] Start: 12-17-2025 BP Controlled (<130/80) BP Controlled (<130/80) [facility] Start: 06-19-2025 Covid-19 Vaccine () Covid-19 Vaccine () [facility] Start: 06-16-2025 Influenza vaccination Influenza Vaccine (#1) [facility] Start: 04-10-2025 End: 04-10-2025 Patient encounter procedure 04/10/2025 1:40 PM EDT Office Visit Orthopaedic Surgery [facility] [address] [place] [address] Avi Dobbins MD [address] [place], [place] [id number] left hand pain Orthopaedic Surgery [facility] Comment on above: left hand pain Start: 03-21-2025 Patient referral [facility] Work Phone: Start: 12-17-2024 End: 12-17-2024 Patient encounter procedure 12/17/2024 1:30 PM EST Appointment Radiology [address] [address] Exec Hold Bill Radiology Comment on above: Exec Hold Bill Start: 12-17-2024 Subsequent hospital visit by physician 12/17/2024 12:04 PM EST Hospital Encounter Radiology [address] [address] Encounter for screening for cardiovascular disorders [Z13.6] [...] AM EST Nurse Visit Internal Medicine [address] [address] [address], Bp Chon Intm Preventive [address] [place] [address] Exec Hold Bill Internal Medicine Comment on above: Exec Hold Bill Start: 12-17-2024 End: 12-17-2024 ambulatory 12/17/2024 7:45 AM EST Results Only [facility] [address] [facility] Comment on above: Exec Hold Bill Start: 12-17-2024 End: 12-17-2024 Patient encounter procedure Internal Medicine Comment on above: chapis Exec Hold Bill [employer] Start: 10-31-2024 Lipid 1996 panel - Serum or Plasma Lipid Screening [facility] Start: 10-16-2024 Advance Directive Discussion Advance Directive Discussion [facility] Start: 10-16-2024 Medicare Advantage Annual Wellness Visit Medicare Advantage Annual Wellness Visit [facility] Start: 06-24-2024 End: 06-24-2024 Patient encounter procedure 06/24/2024 10:15 AM EDT Office Visit Orthopaedics [address] [place] [address] Avi Dobbins MD [address] [place] [address] follow up re: cortisone injectio Orthopaedics Comment on above: follow up re: cortisone injectio Start: 06-16-2024 Covid-19 Vaccine ( season) Covid-19 Vaccine ( season) [facility] Start: 06-16-2024 Covid-19 Vaccine ( season) Covid-19 Vaccine ( season) [facility] Start: 06-16-2024 Influenza vaccination Influenza Vaccine (#1) [facility] Start: 03-25-2024 End: 03-25-2024 Patient encounter procedure 03/25/2024 1:45 PM EDT Office Visit Orthopaedics [address] [place] [place] [address] Avi Dobbins MD [address] [place] [address] Post op right knee arthroscopic medial menisectomy [...] attack) Prediabetes Hypercholesterolemia Expected: 01/23/2024, Expires: 04/23/2024 [facility] Work Phone: Comment on above: Expected: 01/23/2024, Expires: Start: 12-02-2023 Covid-19 Vaccine () Covid-19 Vaccine () [facility] Start: 10-16-2023 Advance Directive Discussion Advance Directive Discussion [facility] Start: 10-16-2023 Behavioral Health Screening Behavioral Health Screening [facility] Start: 10-16-2023 Depression Assessment Depression Assessment [facility] Start: 06-16-2023 Covid-19 Vaccine ( season) Covid-19 Vaccine ( season) [facility] Start: 06-16-2023 Covid-19 Vaccine () Covid-19 Vaccine () [facility] Start: 06-16-2023 Influenza vaccination Influenza Vaccine (#1) [facility] Start: 2023 Advance Directive Discussion Advance Directive Discussion [facility] Start: 2023 Bone Density Screening Bone Density Screening [facility] Start: 2023 Pneumococcal Vaccine: 65+ (3 - PPSV23 or PCV20) Pneumococcal Vaccine: 65+ (3 - PPSV23 or PCV20) [facility] Start: 10-31-2022 Diabetes Screening Diabetes Screening [facility] Start: 10-16-2022 Depression Assessment Depression Assessment [facility] Start: 07-23-2022 Colonoscopy Colonoscopy [facility] Start: 07-23-2022 Colorectal Cancer Screening Colorectal Cancer Screening [facility] Start: 10-31-2020 Mammography Mammogram Screening [facility] Start: 10-31-2020 Screening for malignant neoplasm of breast Mammogram Screening [facility] Start: 05-02-2019 End: 05-02-2019 Appointment Appointment [facility] Work Phone: Start: 2018 RSV Vaccine (1 - 1-dose 60+ series) RSV Vaccine (1 - 1-dose 60+ series) [facility] Start: 07-23-2013 Colonoscopy Colonoscopy [facility] Start: 07-23-2013 Colorectal Cancer Screening Colorectal Cancer Screening [facility] Start: 07-23-2013 Screening for malignant neoplasm of colon Colonoscopy [facility] Start: 2008 Shingrix Vaccine (1 of 2) Shingrix Vaccine (1 of 2) [facility] Start: 2003 Cologuard (FIT-DNA) Cologuard (FIT-DNA) [facility] Start: [address] COLONOGRAPHY [facility] Start: 2003 Fecal Occult Blood Fecal Occult Blood [facility] Start: 2003 Screening for malignant neoplasm of colon [facility] Start: 2003 SIGMOIDOSCOPY SIGMOIDOSCOPY [facility] Start: 1976 Annual PCP Team Chronic Disease Visit Annual PCP Team Chronic Disease Visit [facility] Start: 1976 Anxiety Screening Anxiety Screening [facility] Start: 1976 BP Controlled (<130/80) BP Controlled (<130/80) [facility] Start: 1976 Depression Screening Depression Screening [facility] Start: 1976 HIV Screening HIV Screening [facility] BD DXA TRABECULAR JESSICA NE SCORE (TBS) BD DXA TRABECULAR BONE SCORE (TBS) Radiology Routine Routine general medical examination at a health care facility 12/17/2024 9:32 AM EST [facility] C reactive protein [Mass/volume] in Serum or Plasma [facility] C reactive protein [Mass/volume] in Serum or Plasma [facility] CBC W Auto Differential panel - Blood [facility] COLOGUARD COLOGUARD Lab [place] Colon cancer screening Ordered: 08/01/2023 [facility] Work Phone: Comment on above: Ordered: 08/01/2023 Comprehensive metabolic 2000 panel - Serum or Plasma [facility] End: 09-27-2024 Ct abdomen & pelvis w/o contrast material CT ABD/PEL WO IVCON Radiology Routine Ventral hernia without obstruction or gangrene 1 Occurrences starting 08/29/2023 until 09/27/2024 [facility] Work Phone: Comment on above: 1 Occurrences starting 08/29/2023 until 09/27/2024 End: 08-24-2024 Ct angiography chest w/contrast/noncontrast CTA CHEST (GATED) W IVCON Radiology Routine Ascending aorta dilation (HCC) 1 Occurrences starting 07/26/2023 until 08/24/2024 [facility] Work Phone: Comment on above: 1 Occurrences starting 07/26/2023 until 08/24/2024 Ct angiography chest w/contrast/noncontrast CTA CHEST (GATED) W IVCON Radiology Routine Ascending aorta dilation (HCC) 08/01/2023 4:21 PM EDT [facility] Work Phone: Cyclic citrullinated peptide IgG Ab [Units/volume] in Serum or Plasma [facility] Cytoplasmic ANCA Screen [facility] DXA Skeletal system.axial Views for bone density DXA-AXIAL SKELETON Radiology Routine Routine general medical examination at [facility] care facility 12/17/2024 9:32 AM EST [facility] Only [employer] Work Phone: Erythrocyte sedimentation rate [facility] Erythrocyte sedimentation rate [facility] Lipid 1996 panel - Serum or Plasma [facility] Lipoprotein a [Mass/volume] in Serum or Plasma [facility] End: 08-01-2023 KATE SCREENING W [facility] Work Phone: Comment on above: ONCE for 1 Occurrences starting 08/01/20 23 until 08/01/2023 End: 01-16-2025 MR Knee - right WO contrast MRI KNEE WO IVCON RIGHT Radiology Routine Tear of medial meniscus of right knee, current, unspecified tear type, subsequent encounter Primary osteoarthritis of right knee 1 Occurrences starting 12/18/2023 until 01/16/2025 [facility] Work Phone: Comment on above: 1 Occurrences starting 12/18/2023 until 01/16/2025 MR Knee - right WO contrast MRI KNEE WO IVCON RIGHT Radiology Routine Tear of medial meniscus of right knee, current, unspecified tear type, subsequent encounter Primary osteoarthritis of right knee 12/30/2023 1:26 PM EDT [facility] Work Phone: Patient Education \\[email or web address]\\[email or web address] PtEducation\\ht n.pdf [facility] Work Phone: Patient referral [facility] Work Phone: Rheumatoid factor [Presence] in Serum [facility] XR Cervical spine 2 or 3 Views [facility] End: 05-03-2026 XR Hand - left PA and Lateral and Oblique XR HAND GENERAL 3V PA/LAT/OBL LEFT Radiology Routine Left hand pain 1 Occurrences starting 04/03/2025 until 05/03/2026 [facility] Work Phone: Comment on above: 1 Occurrences starting 04/03/2025 until 05/03/2026 [facility] Immunizations Immunization Date Immunization Notes Care Provider Fa [facility] 12-17-2024 COVID-19 vaccine, ag e 12+ yr ([employer] [facility]) David Hull MD Work Phone: [facility] 12-17-2024 influenza, high dose seasonal, preservative-free David Hull MD Work Phone: [facility] 12-17-2024 influenza virus vacc ine, unspecified formulation Avi Dobbins MD Work Phone: [facility] 08-01-2023 COVID-19 vaccine, ag e 12+ yr, 2022- season (PFIZER-BIONTKoubachi) [facility] Work Phone: [facility] 08-01-2023 pneumococcal (PCV20) vaccine, 20 valent (PREVNAR 20) [facility] Work Phone: [facility] 08-01-2023 respiratory syncytia l virus (RSV) vaccine, bivalent (ABRYSVO) [facility] Work Phone: [facility] 08-01-2023 pneumococcal Conjuga te, unspecified formulation Allan Partida MD Work Phone: [facility] Work Phone: 07-27-2023 influenza, injectabl e, quadrivalent, contains preservative Leon Christiano DO Work Phone: [facility] Work Phone: 07-27-2023 influenza, injectabl e, quadrivalent, preservative free Dr. Chester Valentine MD Work Phone: [facility] 07-27-2023 influenza virus vacc ine, unspecified formulation Avi Dobbins MD Work Phone: [facility] 09-14-2022 Covid Pfizer Bivalen t Booster Dr. Chester Valentine MD Work Phone: [facility] 07-19-2021 Covid (Pfizer) Dr. Chester Valentine MD Work Phone: [facility] 01-11-2021 Covid (Pfizer) Dr. Chester Valentine MD Work Phone: [facility] 12-21-2020 Covid (Pfizer) Dr. Chestre Valentine MD Work Phone: [facility] 07-13-2020 zoster vaccine recombinant Leon Christiano DO Work Phone: [facility] 12-24-2019 zoster vaccine recombinant Leon Alvarado DO Work Phone: [facility] 12-17-2019 meningococcal B vacc ine, fully recombinant Leon Mathiskop DO Work Phone: [facility] 12-17-2019 meningococcal oligosaccharide (groups A, C, Y and W-135) diphtheria toxoid conjugate vaccine (MCV4O) Leon Mathiskop DO Work Phone: [facility] 12-17-2019 meningococcal polysaccharide (groups A, C, Y and W-135) diphtheria toxoid conjugate vaccine (MCV4P) Dr. Chester Valentine MD Work Phone: [facility] 07-16-2019 influenza, injectabl e, quadrivalent, contains preservative Allan Partida MD Work Phone: [facility] 07-16-2019 influenza, injectabl e, quadrivalent, preservative free Dr. Chester Valentien MD Work Phone: [facility] 07-16-2019 influenza virus vacc ine, unspecified formulation Allan Partida MD Work Phone: [facility] 05-19-2016 pneumococcal conjuga te vaccine, 13 valent Allan Partida MD Work Phone: [facility] 05-19-2016 tetanus toxoid, redu benny diphtheria toxoid, and acellular pertussis vaccine, adsorbed Allan Partida MD Work Phone: [facility] 06-16-2015 influenza, injectabl e, quadrivalent, preservative free Dr. Chester Valentine MD Work Phone: [facility] 10-21-2009 novel influenza-H1N1 -09, preservative-free, injectable Leon Ortizp DO Work Phone: [facility] 10-05-1999 pneumococcal polysaccharide vaccine, 23 valent Allan Partida MD Work Phone: [facility] Payers Date Payer Category Payer [place] Care[place] [id number] 2024 Self-pay [id number] 2024 Self-pay [id number] 2020 Private Health Insurance KARINA العراقي OAP [id number] 2020-Present [phone] [address] [place] [address] Open Access [id number] 2020 Private Health Insurance [id number] Unknown [id number] Unknown [id number] Unknown [id number] Unknown [id number] Unknown [id number] Unknown [id number] Unknown [id number] Unknown [id number] Unknown [id number] Unknown [id number] Unknown [id number] Unknown [id number] Unknown [id number] Unknown [id number] Social History Date Type Detail Facility Start: 05-02-2019 End: 05-02-2019 Assertion Unknown if ever smoked [facility] Work Phone: Start: 1960 Sex Assigned At [facility] Start: 10-31-2019 End: 03-15-2024 Tobacco smoking status NHIS Ex-smoker [facility] Work Phone: Start: 10-16-1975 End: 10-16-1979 History of tobacco use Current smoker [facility] Work Phone: Start: 10-16-1975 End: 10-16-1979 History of tobacco use Cigarette Smoker [facility] Work Phone: Start: 10-31-2019 End: 08-01-2023 Cigarettes smoked current (pack per day) - Reported 0.3 [facility] Start: 10-31-2019 End: 06-24-2024 Tobacco use and exposure Smokeless tobacco non-user [facility] Work Phone: Start: 12-08-2021 End: 01-11-2024 Alcohol intake Current drinker of alcohol (finding) [facility] Start: 12-08-2021 End: 08-01-2023 Tobacco use panel [facility] Adult Depression Screening Assessment 0 [facility] Start: 10-31-2019 Tobacco Comment 4-5 cigarettes/day [facility] Start: 10-31-2019 [facility] Start: 11-04-2020 Gender identity Identifies as female gender (finding) [facility] Start: 11-04-2020 Sexual orientation Heterosexual (fin ding) [facility] Start: 08-01-2023 Alcohol Comment 2 glasses of s cotch nightly [facility] Start: 01-24-2024 End: 05-07-2025 Alcohol intake Ex-drinker (finding) [facility] Start: 01-24-2024 Alcohol Comment currently not drinki ng [facility] NEGATED: Highlighted rowStart: 05-02-2019 End: 05-02-2019 Employment detail Employment detail [facility] Work Phone: Clinical Notes 11-05-2020 to 07-30-2025 Note Date & Type Note Facility 07-30-2025 Progress note [facility] 06-18-2025 Evaluation note Diagnosis Onset Date Resolution Degenerative disc disease, cervical acute June 18, 2025 8:42am Dupuytren's contracture of left hand acute June 18, 2 025 8:42am Arthritis chronic June 18, 2025 8:42am Hyperlipidemia chronic June 18, 2025 8:42am Hypertension chronic June 8:42am Elevated C-reactive protein acute July 30 11:26am Arthritis chronic July 30, 2025 11:26am [facility] Work Phone: 1(106) 353-510307-16-2025 Discharge summary Author Namrata Colon [facility] Note Date/Time April 30, 2025 7:00 pm [facility] [address] [place] [address]. [address] [place] [address] / REHABILITATION SERVICES DISCHARGE SUMMARY MR#: [id number] Acct: [id number] Name: JOSH HUFFMAN Rep #: [id number] : [id number] 65 From: Namrata Colon PT, Cert. MDT Referring Dr.: Dr. Chester Valentine MD Status : REG RCR Insurance: [employer] SELF PAY INSURANCE Discharge Summary D/C summary: It has been my pleasure to treat JOSH HUFFMAN referred by Dr. Chester Valentine MD, with the diagnosis of CERVICAL DDD for a total of 9 visit(s). Discharge Date: 04/30/25 Please see the following information for a summary of their discharge status. Subjective Subjective: PATIENT STATES HER NECK FEELS ALMOST 100% BETTER TURNING TO THE RIGHT AND ABOUT 75% BETTER TURNING TO THE LEFT. "IT DOES FEEL SO MUCH BETTER". SHE REPORTS BEING PLEASED WITH BEING ABLE TO TURN HER HEAD FURTHER TO LEFT BEFORE SHE FEELS PAIN AND NOT FEELING MUCH PAIN. THIS IS ESPECIALLY NOTICEABLE PULLING OUT OF HER DRIVEWAY. SHE STATES SHE HAS DETERMINED FOR SURE SINCE LAST VISIT THAT HER INTERMITTENT HAND TINGLING IS NOT RELATED TO HER NECK AND DIRECTLY RELATED TO HER HAND USE. Pain L NECK PAIN: Pain Intensity (Out of 10): 2 R NECK PAIN: Pain Intensity (Out of 10): 1 Overall Improvement % Improvement: 83 Objective Objective/Function: PATIENT WAS SEEN TODAY FOR ASSESSMENT OF PROGRESS TOWARD THESET PT GOALS, HEP CHECK, HEP PROGRESSION AND ASSESSMENT OF READINESS FOR DISCHARGE. THIS PATIENT HAS MADE EXCELLENT PROGRESS WITH PT AND IS APPROPRIATE FOR AND AGREEABLE TO DISCHARGE. Goals Goal 1:: DECREASE C/O NECK PAIN BY AT LEAST 50% TO EASE ADL'S. Goal Progress: Goal Met Goal 2:: IMPROVE CERVICAL ROM ALL PLANES TO EASE ADL'S. Goal Progress: Goal Met Goal 3:: INSTRUCT IN PROPHYLAXIS Goal Progress: Goal Met Plan Plan: D/C TO INDEP EX. PATIENT AGREEABLE. D/C Information d/c sentence: If there are questions or concerns regarding this patient's physical therapy, please feel free to call me at [phone]. Thank you for the referral of thispatient. Sincerely, Namrata Colon, PT, Cert MDT Balance/Gait/Functional tests Balance/Special Test Scores Oswestry Neck Score: 4 Improvement % Improvement: 83 <Electronically signed by Namrata Colon PT Cert. MDT> 04/30/25 1415 CC: Dr. Chester Valentine MD ~ BIA Signed [facility] Work Phone: 1(504) 216-971507-16-2025 Discharge summary [facility] [address] [place] [address] / REHABILITATION SERVICES DISCHARGE SUMMARY MR#: [id number] Acct: [id number] Name: JOSH HUFFMAN Rep #: [id number] : 1960 65 From: Namrata Colon PT, Cert. MDT Referring Dr.: Dr. Chester Valentine MD Status : REG RCR Insurance: [employer] SELF PAY INSURANCE Discharge Summary D/C summary: It has been my pleasure to treat JOSH HUFFMAN referred by Dr. Chester Valentine MD, with the diagnosis of CERVICAL DDD for a total of 9 visit(s). Discharge Date: 04/30/25 Please see the following information for a summary of their discharge status. Subjective Subjective: PATIENT STATES HER NECK FEELS ALMOST 100% BETTER TURNING TO THE RIGHT AND ABOUT 75% BETTER TURNING TO THE LEFT. "IT DOES FEEL SO MUCH BETTER". SHE REPORTS BEING PLEASED WITH BEING ABLE TOTURN HER HEAD FURTHER TO LEFT BEFORE SHE FEELS PAIN AND NOT FEELING MUCH PAIN. THIS IS ESPECIALLY NOTICEABLE PULLING OUT OF HER DRIVEWAY. SHE STATES SHE HAS DETERMINED FOR SURE SINCE LAST VISIT THAT HER INTERMITTENT HAND TINGLING IS NOT RELATED TO HER NECK AND DIRECTLY RELATED TO HER HAND USE. Pain L NECK PAIN: Pain Intensity (Out of 10): 2 R NECK PAIN: Pain Intensity (Out of 10): 1 Overall Improvement % Improvement: 83 Objective Objective/Function: PATIENT WAS SEEN TODAY FOR ASSESSMENT OF PROGRESS TOWARD THESET PT GOALS, HEP CHECK, HEP PROGRESSION AND ASSESSMENT OF READINESS FOR DISCHARGE. THIS PATIENT HAS MADE EXCELLENT PROGRESS WITH PT AND IS APPROPRIATE FOR AND AGREEABLE TO DISCHARGE. Goals Goal 1:: DECREASE C/O NECK PAIN BY AT LEAST 50% TO EASE ADL'S. Goal Progress: Goal Met Goal 2:: IMPROVE CERVICAL ROM ALL PLANES TO EASE ADL'S. Goal Progress: Goal Met Goal 3:: INSTRUCT IN PROPHYLAXIS Goal Progress: Goal Met Plan Plan: D/C TO INDEP EX. PATIENT AGREEABLE. D/C Information d/c sentence: If there are questions or concerns regarding this patient's physical therapy, please feel free to call me at [phone]. Thank you for the referral of thispatient. Sincerely, Namrata Colon, PT, Cert MDT Balance/Gait/Functional tests Balance/Special Test Scores Oswestry Neck Score: 4 Improvement % Improvement: 83 04/30/25 1413 CC: Dr. Chester Valentine MD ~ BIA Signed [facility]06-26-2025 NoteIMPRESSION: PROGRESSIVE OSTEOARTHRITIS. Sales And Marketing Representative: CHELSEA Transcribe Date/Time: Apr 10 2025 3:19P Dictated by : MOLLY DAVALOS MD This examination was interpreted and the report reviewed and electronically signed by: MOLLY DAVALOS MD on Apr 10 2025 3:21PM [facility] [id number] History of Present illness Narrative* Hiral Sousa RT(R) - 04/10/2025 2:00 PM EDT Radiology Service Progress Note PATIENT NAME: Josh Huffman DATE OF SERVICE: April 10, 2025 TIME: 1:35 PM PATIENT IDENTITY VERIFICATION COMPLETED USING TWO (2) IDENTIFIERS: Name and Date of confirmedby patient verbally. FALL SCREENING: Has the patient had 2 falls in the last year or 1 fall with injury or currently using an Ambulatory Assistive Device (Walker, Cane, Wheelchair, Crutches, etc.)? No PATIENT GENDER DATA: Assigned female at . status: : No status:NO. PATIENT RELEVANT IMPLANT DATA REVIEWED: Not Applicable PATIENT PRESENTS WITH AN IMPLANTABLE OR ATTACHED INDUSTRIAL HYGIENIST: No RADIOLOGY DEPARTMENT: General X-ray: Exam(s) Completed: Upper Extremity X- Ray(s): Hand, left PERIPHERAL IV DATA: Not applicable SIGNED BY: RICHARD TREVIÑO(R) April 10, 2025 1:35 PM documented in this encounterSelect [facility]ty [facility]06-26-2025 NoteHNO ID: [id number] Author: HIRAL SOUSA RT(R) Service: ? Author Type: Technologist Type: Progress Notes Filed: 04/10/2025 13:36 Note Text: Radiology Service Progress Note PATIENT NAME: Josh Huffman DATE OF SERVICE: April 10, 2025 TIME: 1:35 PM PATIENT IDENTITY VERIFICATION COMPLETED USING TWO [...] PATIENT RELEVANT IMPLANT DATA REVIEWED: Not Applicable PATIENT PRESENTS WITH AN IMPLANTABLE OR ATTACHED INDUSTRIAL HYGIENIST: No RADIOLOGY DEPARTMENT: General X-ray: Exam(s) Completed: Upper Extremity X-Ray(s): Hand, left PERIPHERAL IV DATA: Not applicable SIGNED BY: RICHARD VAZQUEZ RT(R) April 10, 2025 1:35 [facility]06-26-2025 NoteHNO ID: [id number] Author: AVI DOBBINS MD Service: ? Author Type: Physician Type: Progress Notes Filed: 05/07/2025 22:52 Note Text: AMB ROOMING INTAKE FLOWSHEET DATA Pain Pain Level: 5 Pain Location: Hand-Left Description: Aching, Burning, Tenderness Duration Amount of Time: 24 Duration Units: Hours Frequency: Continuous Intervention/Comfort measure: Reposition Comments: Patient is here today for left hand lump in palm of hand, going on for 8 months,and sharp pain in the wrist area going on for 2 months. Pain 5/10.Pt is right hand dominant. Pt is retired. Hobby :gardening. Mobility is ok. Avi Dobbins MD Department of Orthopaedics Orthopaedic Surgery [facility] [address] [address] [facility] [address] Dept: [phone] Dept April 10, 2025 CHIEF COMPLAINT: Established Patient of the Left Hand (Patient is here today for left hand lump in palm of hand, going on for 8 months,and sharp pain in the wrist area going on for 2 months. Pain 5/10. Pt is right hand dominant. Pt is retired. Hobby :gardening. Mobility is ok.) DYLAN Huffman is a 64-year-old female presenting with left thumb pain and a nodule on the left palm. Starr reports a nodule on the left palm that began 8 months ago and is not painful. She also reports intense pain at the base of the left thumb, which started 2 months ago. The pain is exacerbated by gripping objects, such as a coffee cup, and is described as a shooting pain that radiates up the thumb. She has been using Voltaren gel for pain management. She also notes occasional locking and cracking of the knuckle, but denies pain in that area. She is right-handed and has a history of right knee surgery performed by an orthopedic surgeon last year. She has upcoming plans to hike in [place] and [facility] in [place] from May 06 through the . ASSESSMENT: M18.12 Primary osteoarthritis of first carpometacarpal joint of left hand (primary encounter diagnosis) M72.0 Dupuytren's disease of palm 1. Primary osteoarthritis of first carpometacarpal joint of left hand (M18.12) Severe osteoarthritic changes observed on X-ray at the base of the left thumb, consistent with CMC joint arthritis. Patient experiences significant pain when gripping objects, indicating advanced degeneration. - Provided a thumb brace to offload stress on the CMC joint during activities. - Continue using Voltaren gel for topical anti-inflammatory relief. - Discussed potential for corticosteroid injection under ultrasound guidance if pain persists. - Educated patient on surgical option (trapeziectomy with tendon interposition and suspensionplasty) for definitive treatment, explaining the procedure, recovery timeline, and expected outcomes. - Patient to use brace during upcoming hiking trip and consider surgical intervention post-vacation if symptoms remain intolerable. 2. Dupuytren's disease of palm (M72.0) Presence of a Dupuytren's nodule in the palm, with no current contracture or functional limitation. Condition is genetically linked and more prevalent in individuals of descent. - Advised observation and monitoring for any progression to cord formation or contracture. - Educated patient on the nature of Dupuytren's disease, including potential future treatments such as enzyme injections or fasciectomy if contracture develops. - Patient to report any changes in the nodule or development of contracture. Will continue to monitor patient for Primary osteoarthritis of first carpometacarpal joint of left hand (primary encounter diagnosis) Dupuytren's disease of palm, patient to schedule visit as per follow up discussed. OBJECTIVE: Ms. Josh Huffman is a pleasant 65 year old in no apparent distress. Gen:There were no vitals taken for this visit. nl development, non obese, no deformities ENT: Normocephalic, normal hearing, moist mucosa CV: Pulses:Radial= 2+ and symmetric, capillary refill < 2 secs, no peripheral edema/varicosities Skin: no rash, bruising or lesions. Good turgor. Psych: cooperative and appropriate, alert and oriented x 3, good mood and affect. Musculoskeletal: - Musculoskeletal: - Left Hand: - Palpable nodule at the base of the middle finger. - CMC joint with visible deformity, no tenderness reported. - Limited ability to fully extend fingers. - Right Hand: - Pain localized to the base of the thumb, exacerbated by gripping actions. Imaging: Labs: Tests: Imaging: Hand X-ray: Degenerative changes at the base of the thumb (CMC joint) with irregular joint surfaces and bone spur formation, consistent with advanced arthritis. Supporting Subjective Information Below: Past Medical History: PAST MEDICAL HISTORY Diagnosis Date Ascending aorta dilation (4.3 cm on non-contrast CT 10/2019) 10/31/2019 ASD (atrial septal defect) ([facility]) 1987 (more content not included)...[facility] of Present illness Narrative* Avi Dobbins MD - 04/10/2025 1:43 PM EDT AMB ROOMING INTAKE FLOWSHEET DATA Pain Pain Level: 5 Pain Location: Hand-Left Description: Aching, Burning, Tenderness Duration Amount of Time: 24 Duration Units: Hours Frequency: Continuous Intervention/Comfort measure: Reposition Comments: Patient is here today for left hand lump in palm of hand, going on for 8 months,and sharppain in the wrist area going on for 2 months. Pain 5/10.Pt is right hand dominant. Pt is retired. Hobby :gardening. Mobility is ok. Avi Dobbins MD Department of Orthopaedics Orthopaedic Surgery [facility] [address] [facility] [address] Dept: [phone] Dept April 10, 2025 CHIEF COMPLAINT: Established Patient of the Left Hand (Patient is here today for left hand lump in palm of hand, going on for 8 months,and sharp pain in the wrist area going on for 2 months. Pain 5/10. Pt is right hand dominant. Pt is retired. Hobby :gardening. Mobility is ok.) HPI Starr Huffman is a 64-year-old female presenting with left thumb pain and a nodule on the left palm. Starr reports a nodule on the left palm that began 8 months ago and is not painful. She also reports intense pain at the base of the left thumb, which started 2 months ago. The pain is exacerbated bygripping objects, such as a coffee cup, and is described as a shooting pain that radiates up the thumb. She has been using Voltaren gel for pain management. She also notes occasional locking and cracking of the knuckle, but denies pain in that area. She isright-handed and has a history of right knee surgery performed by an orthopedic surgeon last year. She has upcoming plans to hike in [place] and [facility] in [place] from May 06 through the . ASSESSMENT: M18.12 Primary osteoarthritis of first carpometacarpal joint of left hand (primary encounter diagnosis) M72.0 Dupuytren's disease of palm 1. Primary osteoarthritis of first carpometacarpal joint of left hand (M18.12) Severe osteoarthritic changes observed on X-ray at the base of the left thumb, consistent with CMC joint arthritis. Patient experiences significant pain when gripping objects, indicating advanced degeneration. - Provided a thumb brace to offload stress on the CMC joint during activities. - Continue using Voltaren gel for topical anti-inflammatory relief. - Discussed potential for corticosteroid injection under ultrasound guidance if pain persists. - Educated patient on surgical option (trapeziectomy with tendon interposition and suspensionplasty) for definitive treatment, explaining the procedure, recovery timeline, and expected outcomes. - Patient to use brace during upcoming hiking trip and consider surgical intervention post-vacationif symptoms remain intolerable. 2. Dupuytren's disease of palm (M72.0) Presence of a Dupuytren's nodule in the palm, with no current contracture or functional limitation.Condition is genetically linked and more prevalent in individuals of descent. - Advised observation and monitoring for any progression to cord formation or contracture. - Educated patient on the nature of Dupuytren's disease, including potential future treatments suchas enzyme injections or fasciectomy if contracture develops. - Patient to report any changes in the nodule or development of contracture. Will continue to monitor patient for Primary osteoarthritis of first carpometacarpal joint of left hand (primary encounter diagnosis) Dupuytren's disease of palm, patient to schedule visit as per follow up discussed. OBJECTIVE: Ms. Josh Huffman is a pleasant 65 year old in no apparent distress. Gen:There were no vitals taken for this visit. nl development, non obese, no deformities ENT: Normocephalic, normal hearing, moist mucosa CV: Pulses:Radial= 2+ and symmetric, capillary refill < 2 secs, no peripheral edema/varicosities Skin: no rash, bruising or lesions. Good turgor. Psych: cooperative and appropriate, alert and oriented x 3, good mood and affect. Musculoskeletal: - Musculoskeletal: - Left Hand: - Palpable nodule at the base of the middle finger. - CMC joint with visible deformity, no tenderness reported. - Limited ability to fully extend fingers. - Right Hand: - Pain localized to the base of the thumb, exacerbated by gripping actions. Imaging: Labs: Tests: Imaging: Hand X-ray: Degenerative changes at the base of the thumb (CMC joint) with irregular joint surfacesand bone spur formation, consistent with advanced arthritis. Supporting Subjective Information Below: Past Medical History: PAST MEDICAL HISTORY Diagnosis Date Ascending aorta dilation (4.3 cm on non-contrast CT 10/2019) 10/31/2019 ASD (atrial septal defect) (FORM[facility]LY [facility]) 1987 repaired at [facility] at age 27 Bilateral hip bursitis 11/2021 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 Elevated uric acid in blood 10/31/2019 without gout Heel spur resolved with Tenex Hypercholesterolemia 10/31/2019 Hypertension on medication since 2013 Hypothyroidism 2017 Menopausal state Normal coronary arteries, Coronary Calcium Score = 0 (10/2019) 10/31/2019 (normal spontaneous vaginal delivery) ([facility]) 1987, 1989, 1993 1987: 8'12"; 1989 9'3"; 1993: 9'1" Prediabetes 10/31/2019 Psoriasis scalp Right plantar fasciitis treated with Tenex TIA (transient ischemic attack) 1987 during first , diagnosed ASD, repaired at [facility] after delivery Vitamin D deficiency 10/31/2019 Past Surgical History: PAST SURGICAL HISTORY Procedure Laterality Date ARTHRS KNE SURG W/MENISCECTOMY MED/LAT W/SHVG Right 02/07/2024 right knee, arthroscopic medial meniscectomy, lateral and patellofemoral chondroplasties COLONOSCOPY 07/23/2012 hemorrhoids, diverticulosis, advised 10-year follow-up HEART SURGERY HX 1987 at [facility], atrial septal defect repair LASIK Right [...] Take 1 capsule by mouth once daily. rosuvastatin (CRESTOR) 10 mg tablet Take 1 tablet by mouth once daily. levothyroxine (SYNTHROID) 100 mcg tablet Take 1 [...] Musculoskeletal (see HPI) Psych (no depression, anxiety) Musculoskeletal: (+) left thumb pain, (+) intermittent finger locking, (-) palmar pain Recording using ambient [employer] software for draft documentation of the visit was discussed with the patient/authorized desk representative; all questions welcomed and answered. Patient/authorized desk representative agreed to proceed Avi Dobbins MD documented in this encounterSelect Medical [facility]ty [facility]06-09-2025 Radiology Diagnostic study note [facility] Imaging Services [address] [place] [address] Cerv Spine 2 or 3 Views MR#: [id number] Acct: [id number] Name: JOSH HUFFMAN Rep #: [id number] : 1960 F 64 From: Douglas Steen MD PCP: Dr. Chester Valentine MD Status: R EG CLI Study:Cerv Spine 2 or 3 Views Date of Exam: 03/24/25 Exam# [id number] Ordering Dr: Britney Valentine MD PROCEDURE: CERV SPINE 2 OR 3 VIEWS 03/24/2025 REASON FOR EXAM: CHRONIC NECK PAIN TECHNIQUE: 3 views of the cervical spine. COMPARISON: None FINDINGS: There are no compression fractures. There is loss of the normal cervical lordosis. There is degenerative disc disease C4-5 through C6-7 with narrowing of the intervertebral disc spaces and marginal osteophytes. There is multilevel facet arthropathy. There is degenerative grade 1 anterolisthesis of C4 on C5. RAD/Cerv Spine 2 or 3 Views IMPRESSION: 1. Degenerative disc disease with cervical spasm. 2. Multilevel facet arthropathy with degenerative anterolisthesis of C4 on C5. Reading Location: [place] [address] CC: Dr. Chester Valentine MD ~ Sales And Marketing Representative: Signed [facility] Work Phone: 1(941) 616-314906-06-2025 Evaluation note* Diagnosis Onset Date Resolution Status Admit Date Health care maintenance acute J 2024 8:53am Hyperlipidemia chronic March 21, 2025 8:53am Hypertension chronic March 21 8:53am Hypothyroidism chronic March 21, 2025 8:53am Localized swelling on left hand lunchroom aide pradeep March 21, 2025 8:53am Neck pain chronic March 21, 2025 8:53am [facility] Work Phone: 1(572) 476-387006-06-2025 Evaluation note* Diagnosis Onset Date Resolution Status Admit Date Health care maintenance acute J 2024 8:53am Hyperlipidemia chronic March 21, 2025 8:53am Hypertension chronic March 21 8:53am Hypothyroidism chronic March 21, 2025 8:53am Localized swelling on left hand chronic March 21, 2025 8 :53am Neck pain chronic March 21, 2025 8:53am Degenerative disc disease, cervical acute June 18, 8:42am Dupuytren's contracture of left hand acute June 18 025 8:42am Arthritis chronic June 18, 2025 8:42am Hyperlipidemia chronic June 18, 2025 8:42am Hypertension chronic June 8:42am [facility] Work Phone: 1(668) 164-761403-12-2025 NoteHNO ID: [id number] Author: TEJAS GARRIDO, Design Studio Consultant Service: ? Author Type: Design Studio Consultant Type: Progress Notes Filed: 12/25/2024 10:33 Note [...] needs and health goals. Patient Name: Josh Huffman "Starr" Date: December 17, 2024 [facility] Number: [id number] [facility] [...] during first , diagnosed ASD, repaired at [facility] after delivery). 9. Atrial septal defect (1987; repaired at [facility] at age 27). 10. Hypertension (2012). [...] comparison of standards for age and gender. 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 Anything beyond ten minutes [...] 6-12 weeks to prev (more content not included)...[facility] History of Present illness Narrative* Tejas Garrido, Design Studio Consultant - 12/25/2024 10:33 AM EDT [facility] [...] needs and health goals. Patient Name: Josh Huffman "Starr" Date: December 17, 2024 [facility] Number: [id number] Patients Health [facility] Patients F[facility] [...] during first , diagnosed ASD, repaired at [facility] after delivery). 9. Atrial septal defect (1987; repaired at [facility] at age 27). 10. Hypertension (2012). 11. Hypothyroidism (2016). Current dose of levothyroxine is appropriate. 12. [...] comparison of standards for age and gender. 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 Anything beyond ten minutes [...] any other chronic condition. For additional information: [place] [employer]: www.acsm.org [place] on Exercise: www.acefitness.org National [place] of Health: www.nih.gov Clinician: Tejas Garrido MS Design Studio Consultant [email or web address] documented in this encounterSelect Medical [facility]ty [facility]03-04-2025 NoteEducation (EXEPMN) JOSH HUFFMAN ([id number]) 1960 F Date Time Provider Department 12/17/24 3:00 PM REHABILITATION PROGRAM COORDINATOR EXEPMN Reason for Visit: Nutrition Assessment [1591] [...] Text Encounter Status:Closed by TRANG SOSA on 12/17/24[facility] 12-[facility] History of Present illness Narrative* David Hull MD - 12/17/2024 2:00 PM EST HEALTH EVALUATION ON: Josh Huffman [address] [facility] [address] DATE OF EXAMINATION: December 17, 2024 Age: [age] year old Clinic No. : [id number] PRESENT COMPLAINTS: Physical examination. MEDICATION ALLERGIES: None. [...] (10/2019). Hyperlipidemia (10/2019). Elevated Lp(a). Prediabetes (07/2023: JML=477, A1c=5.9%). Ascending aorta dilation (4.[address] 10/2019-07/2023). Transient Ischemic Attack (1987; during first , diagnosed ASD, repaired at [facility] after delivery). Atrial Septal Defect (1987; repaired at [facility] at age 27). Hypertension (2013). Hypothyroidism (2016). Postmenopause Psoriasis (scalp). Right plantar [...] days per week. 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 She is [...] 112/76, pulse 66, temperature 98.2 F, height 69", weight 219.8 lb (216.25 on 08/07) Body [...] rate and rhythm. Breasts: Deferred to her [employer]. Abdomen: Abdomen soft, non-tender. Bowel sounds normal. No masses, organomegaly, or bruit. Extremities: Osteoarthritic changes of both hands. Bilateral varicose veins of legs and ankle. No edema, or skin discoloration. Good capillary refill. Peripheral pulses: Normal. Strong peripheral pulses. Neuro: Alert and oriented to person, place, and time. Gait normal. Reflexes normal and symmetric. Pelvic and rectal: Deferred to her [employer]. STUDIES Complete Blood Count: Normal. Metabolic Profile: [...] suggestive that a person has diabetes. The [place] Diabetes Associationrecommends that most people with diabetes [...] abdominal waist circumference is 44.5 inches. Your axcop-el-goiwrutp is 0.88 and your nhaqe-dv-qrlqlo ratio is 0.64. [place] waist to hip ratio is 0.90 or less for men and 0.80 or less for women. For both sexes, an ideal ddpbg-tj-hzexeq ratio is 0.50 or less. Yourideal weight is the weight you can obtain to get your waist circumference to 34.5 inches (or a wiltk-av-ihdirf ratio of 50% or lower). Bone Mineral [...] , diagnosed ASD, repaired at [facility] after delivery). Atrial septal defect (1987; repaired at [facility] at age 27). Hypertension (2013). Hypothyroidism (2017). [...] lightheadedness, see your personal physician or a bag end sewer for evaluation. Try to achieve Zone 2 [...] circumference at half your height (34.5 inches). Cologuard in 10/2026. MS. Huffman, it was a [...] good health, David Hull M.D., F.A.C.P. * Rubi Pandey RN - 12/17/2024 1:13 PM EST [...] with patient. See also immunization section in [facility] for vaccine history and vaccines patient received today. Td-na Tdap-2016 Pneumococcal- (Pneumovax 23)-1998 Prevnar 13- na PCV -2022 Hepatitis A-na Hepatitis B-na Influenza-2022; given today Shingrix-x2; 2020 Covid-19 7992-0887- 2022; given today RSV- 2022 See Immunization record in EPIC. Discussed with patient current recommendations from the CDC for routine adult immunizations. Questions answered. Pt. verbalizes understanding of information discussed. Provided patient with [facility] Immunization System Document and VIS sheet. VISUAL ACUITY Patient declines vision exam Date of Last Exam - 2023 Vision Correction Reading Glasses documented in this encounterSelect [facility]-04-2025 NoteHNO ID: [id number] Author: DAVID HULL MD Service: ? Author Type: Physician Type: Progress Notes Filed: 12/17/2024 17:27 Note Text: HEALTH EVALUATION ON: Joshyair Huffman [address] [facility] [address] DATE OF EXAMINATION: December 17, 2024 Age: [age] year old Clinic No. : [id number] PRESENT COMPLAINTS: Physical examination. MEDICATION ALLERGIES: None. [...] (10/2019). Hyperlipidemia (10/2019). Elevated Lp(a). Prediabetes (07/2023: OTA=458, A1c=5.9%). Ascending aorta dilation (4.[address] 10/2019-07/2023). Transient Ischemic Attack (1987; during first , diagnosed ASD, repaired at [facility] after delivery). Atrial Septal Defect (1987; repaired at [facility] at age 27). Hypertension (2012). Hypothyroidism [...] days per week. 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 She is [...] 112/76, pulse 66, temperature 98.2 ?F, height 69", weight 219.8 lb (216.25 on 08/07) Body [...] Neck: Supple, no a (more content not included)...[facility] History of Present illness Narrative* Pepper [...] PATIENT PRESENTS WITH AN IMPLANTABLE OR ATTACHED INDUSTRIAL HYGIENIST: No RADIOLOGY DEPARTMENT: CT; Exam(s) Completed: Cardiac PERIPHERAL IV DATA: Not applicable SIGNED BY: RT Amira(Gregg) December 17, 2024 12:33 PM documented in this encounterSelect Medical Specialty [facility]03-04-2025 NoteHNO ID: [id number] Author: PEPPER HERNANDEZ RT(R) Service: Radiology Author Type: Analytics Associate Type: Progress Notes Filed: 12/17/2024 12:33 Note [...] PATIENT PRESENTS WITH AN IMPLANTABLE OR ATTACHED INDUSTRIAL HYGIENIST: No RADIOLOGY DEPARTMENT: CT; Exam(s) Completed: Cardiac PERIPHERAL IV DATA: Not applicable SIGNED BY: RT Amira(Gregg) December 17, 2024 12:33 [facility]03-04-2025 NoteHNO ID: [id number] Author: RUBI PANDEY RN Service: ? Author Type: Registered [...] Pneumococcal- (Pneumovax 23)-1998 Prevnar 13- na PCV 20-2022 Hepatitis A-na Hepatitis B-na Influenza-2022; given today Shingrix-x2; 2020 Covid-19 [id number]- 2022; given today RSV- 2022 See Immunization record in EPIC. Discussed with patient current recommendations from the CDC for routine adult immunizations. Questions answered. Pt. verbalizes understanding of information discussed. Provided patient with [facility] Immunization System Document and VIS sheet. VISUAL ACUITY Patient declines vision exam Date of Last Exam - 2023 [facility] History of Present illness Narrative* Andrew Calvo [...] PATIENT PRESENTS WITH AN IMPLANTABLE OR ATTACHED INDUSTRIAL HYGIENIST: No RADIOLOGY DEPARTMENT: Mammography PERIPHERAL IV DATA: Not applicable SIGNED BY: MARILU Velasquez) December 17, 2024 11:07 AM documented in this encounterSelect Medical Specialty [facility] [place]03-04-2025 NoteHNO ID: [id number] Author: ANDREW CALVO RT(R) Service: ? Author Type: Analytics Associate Type: Progress Notes Filed: 12/17/2024 11:07 Note [...] PATIENT PRESENTS WITH AN IMPLANTABLE OR ATTACHED INDUSTRIAL HYGIENIST: No RADIOLOGY DEPARTMENT: Mammography PERIPHERAL IV DATA: Not applicable SIGNED BY: RT Eva(R) December 17, 2024 11:07 [facility]03-04-2025 NoteHNO ID: [id number] Author: TRANG SOSA RD Service: ? Author Type: Registered Dietitian Type: Progress Notes Filed: 12/17/2024 08:49 Note Text: [facility] Nutrition Progress Note Josh Huffman [id number] Assessment Physical Findings: Current Weight and Height: 99.7 kg (219 lb 11.2 oz) 175.3 cm (5' 9") Body mass index is 32.44 kg/m?. [place] BMI: 18.5-24.9 Percent body fat: 48.5 %, [place] body fat percentage is 18-28% for female. Weight corresponding to upper limit of normal body fat% range: 28%: 157.1 lbs Waist Circumference: 44.5 inches (Recommended waist circumference: 34.5 inches or less) Hip Circumference: 50.5 inches Waist to hip ratio: 0.88 ([place] waist/hip ratio: Female: 0.8 or less.) Patient's [...] her health. Breakfast: orange or an apple, burundian yogurt Lunch: lunch meetings often- sandwiches, salads. Chooses whole grains at work. Snack: snacks after work before dinner- pretzels, chips Dinner: loves to cook. Protein (chicken often, fish/ shrimp 2x/ week, red meat 2x/ week), vegetables with dinner usually (broccoli often, greens), rice/potatoes/pasta. Cheese with meals sometimes. Uses both butter and oil. Will have beans with angolan meals, makes lentil soups sometimes. Fruit with [...] ASD (atrial septal defect) 1988 repaired at [facility] at age 27 Bilateral hip bursitis 11/2021 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 Elevated uric acid in blood 10/31/2019 without gout Heel spur resolved with Tenex Hypercholesterolemia 10/31/2019 Hypertension on medication since 2013 Hypothyroidism 2017 Menopausal state Normal coronary arteries, Coronary Calcium Score = 0 (10/2019) 10/31/2019 (normal spontaneous vaginal delivery) 1988, 1989, 1993 1988: 8'12"; 1989 9'3"; 1993: 9'1" Prediabetes 10/31/2019 Psoriasis scalp Right plantar fasciitis [...] 20.5% in excess and a waist circumference 10.0" above recommended. Waist to hip ratio and visceral fat are above ideal ranges. Weight History/Weight Change: patient reports weight has remained stable over the past year. Pt has gained 3.5# body weight, decreased 1.6# skeletal muscle mass, and increased 1.9% body fat since last [facility] physical in 07/2023. Food recall showing: Meeting [...] Nutrition Monitoring AND Evaluation: (more content not included)...[facility] of Present illness Narrative* Trang Sosa, RD - 12/17/2024 7:48 AM EST [facility] Nutrition Progress Note Josh Huffman [id number] Assessment Physical Findings: Current Weight and Height: 99.7 kg (219 lb 11.2 oz) 175.3 cm (5' 9") Body mass index is 32.44 kg/m . [place] BMI: 18.5-24.9 Percent body fat: 48.5 %, [place] body fat percentage is 18-28% for female. Weight corresponding to upper limit of normal body fat% range: 28%: 157.1 lbs Waist Circumference: 44.5 inches (Recommended waist circumference: 34.5 inches or less) Hip Circumference: 50.5 inches Waist to hip ratio: 0.88 ([place] waist/hip ratio: Female: 0.8 or less.) Patient's [...] her health. Breakfast: orange or an apple, burundian yogurt Lunch: lunch meetings often- sandwiches, salads. Chooses whole grains at work. Snack: snacks after work before dinner- pretzels, chips Dinner: loves to cook. Protein (chicken often, fish/ shrimp 2x/ week, red meat 2x/ week), vegetables with dinner usually (broccoli often, greens), rice/potatoes/pasta. Cheese with meals sometimes. Uses both butter and oil. Will have beans with angolan meals, makes lentil soups sometimes. Fruit withdinner [...] ASD (atrial septal defect) 1988 repaired at [facility] at age 27 Bilateral hip bursitis 11/2021 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 Elevated uric acid in blood 10/31/2019 without gout Heel spur resolved with Tenex Hypercholesterolemia 10/31/2019 Hypertension on medication since 2013 Hypothyroidism 2017 Menopausal state Normal coronary arteries, Coronary Calcium Score = 0 (10/2019) 10/31/2019 (normal spontaneous vaginal delivery) 1988, 1989, 1993 1987: 8'12"; 1989 9'3"; 1993: 9'1" Prediabetes 10/31/2019 Psoriasis scalp Right plantar fasciitis [...] fat 20.5% in excess and awaist circumference 10.0" above recommended. Waist to hip ratio and [...] adding 1 tbsp rashida seeds to your burundian yogurt in the morning. 1 tbsp of rashida seeds has 5g fiber. Optimize Body Composition: Aim for 6038-2118 calories per day paired with exercise for [...] by: Trang Sosa RD documented in this encounterSelect Medical [facility]ty [facility]02-04-2025 Telephone encounter Note * Telephone Encounter - Rubi Pandey RN - 11/19/2024 7:40 AM EST Images from the original note were not included. David Hull MD You; Arvin1 Nurse Phone15 hours ago (4:19 PM) She has a calcium score scheduled. This will give me a measurement of her ascending aorta. Therefore a CTA is not necessary. [facility]02-04-[facility] Miscellaneous Notes* Telephone Encounter - Rubi Pandey RN - 11/19/2024 7:40 AM EST Images from the original note were not included. David Hull MD You; A11 Nurse Phone15 hours ago (4:19 PM) She has a calcium score scheduled. This will give me a measurement of her ascending aorta. Therefore a CTA is not necessary. * Telephone Encounter - Rubi Pandey RN - 11/18/2024 3:41 PM EST Previsit call completed. confirmed. Reviewed department guidelines/changes with pt in regard to covid 19-pt verbalized understanding. Additional consults: None Q: will email Dr Hull per Dr Partida's 2022 letter I recommend you have another CT angiogram of the chest in 1-2 years to monitor the diameter of theascending aorta." Do you want to order one? documented in this encounterSelect Medical Specialty [facility] [place]02-03-2025 Telephone encounter Note * Telephone Encounter - Rubi Pandey RN - 11/18/2024 3:41 PM EST Previsit call completed. confirmed. Reviewed department guidelines/changes with pt in regard to covid 19-pt verbalized understanding. Additional consults: None Q: will email Dr Hull per Dr Partida's 2022 letter I recommend you have another CT angiogram of the chest in 1-2 years to monitor the diameter of theascending aorta." Do you want to order one? [facility]09-09-[facility]24 NoteHNO ID: [id number] Author: AVI DOBBINS MD Service: ? Author Type: Physician Type: Progress Notes Filed: 06/24/2024 11:11 Note Text: Avi Dobbins MD Department of Orthopaedics Orthopaedics [address] [place] [address] Dept: [phone] Dept June 24, 2024 CHIEF COMPLAINT: Follow Up of the Right Knee and 3 weeks post visit right knee pain (Here for cortisone injection) HPI Patient states her pain is better since she has been taking the Celebrex. She is leaving on Monday for [place] and will need a refill before she [...] knee joint Informed Consent Consent Obtained: Verbal [place] Protocol A moment to CARE was completed. [...] follow-up 1988: HEART SURGERY HX Comment: at [facility], atrial septal defect repair 2002: LASIK; [...] HPI) Psych (no depression, anxiety) Avi Dobbins [facility]09-09-2024 History of Present illness Narrative* Avi Dobbins MD - 06/24/2024 10:27 AM EDTAssociated Order(s): Large Joint Arthro/Inj: R knee joint Post-Procedure Diagnose(s): Acute pain of right knee; Primary osteoarthritis of right knee Avi Dobbins MD Department of Orthopaedics Orthopaedics [address] [place] [address] Dept: [phone] Dept June 24, 2024 CHIEF COMPLAINT: Follow [...] knee joint Informed Consent Consent Obtained: Verbal [place] Protocol A moment to CARE was completed. [...] follow-up 1988: HEART SURGERY HX Comment: at [facility], atrial septal defect repair 2002: LASIK; [...] anxiety) Avi Dobbins MD documented in this encounterSelect Medical Specialty [facility]08-19-2024 NoteHNO ID: [id number] Author: AVI DOBBINS MD Service: ? Author Type: Physician Type: Progress Notes Filed: 06/03/2024 13:54 Note Text: Avi Dobbins MD Department of Orthopaedics Orthopaedics [address] [facility] [address] Dept: [phone] Dept June 03, 2024 CHIEF COMPLAINT: Established [...] one at time. She is leaving for [place] 2 weeks ago and will be doing some hiking. ASSESSMENT: M25.561 Acute pain of right knee (primary encounter diagnosis) PLAN: She does Konik tweaked the knee while playing with her grandchildren. Will try some strengthening and an anti-inflammatory for a few weeks. If she continues to have some troubles, would recommend a cortisone injection before her [place] trip. We can see her back on [...] follow-up 1988: HEART SURGERY HX Comment: at [facility], atrial septal defect repair 2002: SASKIA; [...] HPI) Psych (no depression, anxiety) Avi Dobbins [facility]08-19-2024 History of Present illness Narrative* Avi Dobbins MD - 06/03/2024 12:58 PM EDT Avi Dobbins MD Department of Orthopaedics Orthopaedics [address] [facility] [address] Dept: [phone] Dept June 03, 2024 CHIEF COMPLAINT: Established [...] one at time. She is leaving for [place] 2 weeks ago and will be doing some hiking. ASSESSMENT: M25.561 Acute pain of right knee (primary encounter diagnosis) PLAN: She does Konik tweaked the knee while playing with her grandchildren. Will try some strengthening and an anti-inflammatory for a few weeks. If she continues to have some troubles, would recommend a cortisone injection before her [place] trip. We can see her back on [...] follow-up 1988: HEART SURGERY HX Comment: at [facility], atrial septal defect repair 2002: SASKIA; [...] anxiety) Avi Dobbins MD documented in this encounterSelect Medical [facility]ty [facility]06-10-2024 History of Present illness Narrative* Avi Dobbins MD - 03/25/2024 1:55 PM EDT Avi Dobbins MD Department of Orthopaedics Orthopaedics [address] [facility] [address] Dept: [phone] Dept March 25, 2024 CHIEF COMPLAINT: Post [...] allergies. Avi Dobbins MD documented in this encounterSelect Medical Specialty [facility]05-06-2024 History of Present illness Narrative* Courtney Elise PA-C - 02/19/2024 9:02 AM EDT Courtney Elise PA-C Department of Orthopaedics Orthopaedics [address] [place] [address] Dept: [phone] Dept February 19, 2024 CHIEF COMPLAINT: Post [...] allergies. This note was partially generated using Stereomood voice recognition system, and there may be some incorrect words, spellings, and punctuation that were not noted in checking the note before saving. Courtney Elise PA-C * Darcy Beck RN - 02/19/2024 8:48 AM EDT AMB [...] and tylenol as needed. documented in this encounterSelect Medical Specialty Hospital [facility]04-24-2024 NoteHNO ID: [id number] Author: MIN HURD APRN.TOURIST ADVISER Service: Anesthesiology Author Type: Nurse River Rat Type: Anesthesia Procedure Notes Filed: 02/07/2024 11:44 [...] 3 Seal Adequate: yes SIGNATURE: Min Hurd APRN.TOURIST ADVISER PATIENT NAME: Josh Huffman DATE: February 07, 2024 TIME: 11:44 AM CSN: [id number] Instructions* Patient Instructions* Tati Garcia APRN.BRIM GREASER OPERATOR - 01/24/2024 9:48 AM EDT PATIENT PREOPERATIVE INSTRUCTIONS Avi Dobbins MD has scheduled you for your procedure at this surgery center: [facility]: [phone] -- [address] [facility] [address]. Please read below carefully for your personalized [...] please check with your dialysis center or salon leader to see if any adjustments need to [...] Procedures: - YOU MUST HAVE A RESPONSIBLE SECURITY MANAGEMENT SPECIALIST TAKE YOU HOME. A ELECTRICAL PROSPECTING OPERATOR OR CREDIT UNION FIELD EXAMINER CANNOT BE MADE A RESPONSIBLE SECURITY MANAGEMENT SPECIALIST. - We recommend that a responsible person [...] Advance Directive, please fax a copy to [phone] or email to for it to be added to your chart. If you do not have an Advance Directive, you can find the appropriate form and more information at [email or web address]. We recommend that youcomplete the Advance Directive form found on the website and bring it with you the day of your surgery. It can be witnessed and scanned into your chart that day. Tati Garcia APRN.CNS documented in this encounterSelect Medical Specialty [facility]04-10-2024 History and physical note * Tati Garcia APRN.CNS - 01/24/2024 9:30 AM EDT PREANESTHESIA CONSULT CLINIC TELEHEALTH VISIT Patient has been identified by name and date of : Yes This is a virtual visit using BioHorizonshart Zoom Video Visit. It require patient- provider interaction forthe medical decision making as documented below. Reason for contact: PACC visit Accompanied by: Self This is a virtual visit using Virtual Visit (Audio/Visual)"I have discussed the nature of this visit with the patient which will occur via Distance Health (Phone, Virtual Visit) and she agrees to proceed with this interaction". It required patient-provider interaction for the medical decision making as documented below. I have communicated my name and active licensure. The patient's identity and physical location wereverified at the time of this visit. Either the patient or their legal desk representative has been informed of the risks and benefits of and alternatives to treatment through a remote evaluation and consents to proceed with the evaluation remotely. Scheduled Surgery: ARTHROSCOPY KNEE MENISCECTOMY MEDIAL OR LATERAL - Right with Avi Dobbins MD on 02/07/2024 Subjective CHIEF COMPLAINT: No chief complaint on file. Patient stated "I have right knee pain and will need surgery" HPI: This is a 63 year old [...] ASD (atrial septal defect) 1988 repaired at [facility] at age 27 Bilateral hip bursitis 11/2021 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 Elevated uric acid in blood 10/31/2019 without gout Heel spur resolved with Tenex Hypercholesterolemia 10/31/2019 Hypertension on medication since 2013 Hypothyroidism 2017 Menopausal state Normal coronary arteries, Coronary Calcium Score = 0 (10/2019) 10/31/2019 (normal spontaneous vaginal delivery) 1987, 1989, 1993 1987: 8'12"; 1989 9'3"; 1993: 9'1" Prediabetes 10/31/2019 Psoriasis scalp Right plantar fasciitis treated with Tenex TIA (transient ischemic attack) 1988 during first , diagnosed ASD, repaired at [facility] after delivery Vitamin D deficiency 10/31/2019 PAST SURGICAL HISTORY Procedure Laterality Date COLONOSCOPY 07/23/2012 hemorrhoids, diverticulosis, advised 10-year follow-up HEART SURGERY HX 1987 at [facility], atrial septal defect repair LASIK Right [...] 32.3 Neuro: No history of TIA's, stroke, BRIM GREASER OPERATOR tumor, impaired sensorium, hemiplegia, paraplegia or quadraplegia. [...] or incontinence,, stones or chronic kidney disease TURBINE ENGINE ASSEMBLER: Negative for abnormal vaginal bleeding, abnormal vaginal [...] Objective PHYSICAL EXAM: Resp 16 Ht 5' 9" (1.75m) Wt 219 lb (99.3kg) BMI 32.33 [...] labs Most recent EKG: of 08/01/23 in [facility] Procedure Date : Aug 01 2023 13:00:16 Edit Date : Aug 06 2023 11:24:47 Diagnosis: NORMAL SINUS RHYTHM NORMAL ECG Confirmed by ANGEL ZAVALETA MD ([id number]) on 08/06/2023 11:24:45 AM EXERCISE STRESS TEST in [facility] of 08/01/23 Stress ECG Summary: The [...] 134/80 mmHg. The double product achieved was [address]. Impression/Recommendations ASSESSMENT: Obesity, Class I, BMI 30-34.9 Assessment: BMI 32.3 Hypercholesterolemia Assessment: not on med ,stable Prediabetes Assessment: monitored per PCP Hypothyroidism Assessment: takes med ,monitored per PCP Ascending aorta dilation (4.3 cm on non-contrast CT 10/2019, and on CT angiogram 07/2023) Assessment: monitored per PCP TIA (transient ischemic attack) Assessment: during first , diagnosed ASD, repaired at [facility] after delivery ASD (atrial septal defect) [...] medical decision making as documented above. SIGNATURE: Tati Garcia APRN.CNS PATIENT NAME: Josh Huffman DATE: 01/24/24 TIME: 9:47 AM PAGER/CONTACT #: documented in this encounterSelect Medical Specialty [facility]04-09-2024 Miscellaneous Notes* Telephone Encounter - Darline Phelps MA - 01/23/2024 3:30 PM EDT Peer to peer scheduled on 01/29/2024 at 11:[address] Yamileth Faust. documented in this encounterSelect Medical Specialty [facility]03-28-2024 History of Present illness Narrative* Avi Dobbins MD - 01/11/2024 3:36 PM EDT Avi Dobbins MD Department of Orthopaedics Orthopaedic Surgery [facility] [address] [place] [facility] [address] Dept: [phone] Dept January 11, 2024 CHIEF COMPLAINT: Follow [...] THE MEDIAL MENISCUS. DEGENERATIVE CHONDRAL CHANGES DESCRIBED. Sales And Marketing Representative: [facility] HOSPITALKathia Transcribe Date/Time: Jan 01 2024 9:23A Dictated by : DELMA OAKES MD This examination was interpreted and the report reviewed and electronically signed by: DELMA OAKES MD on Jan 01 2024 9:25AM EST Results-Findings * * *Final Report* * * DATE OF EXAM: Dec 30 2023 1:26PM [facility] 0213 - MRI KNEE WO IVCON RT [...] 10-year follow-up HEART SURGERY HX 1987 at [facility], atrial septal defect repair LASIK Right [...] anxiety) Avi Dobbins MD documented in this encounterSelect Medical Specialty [facility]03-16-2024 History of Present illness Narrative* Octavia Hope RT(Gregg) - 12/30/2023 1:00 PM EDT Radiology Service [...] PATIENT PRESENTS WITH AN IMPLANTABLE OR ATTACHED INDUSTRIAL HYGIENIST: No RADIOLOGY DEPARTMENT: MR; Exam(s) Completed: Lower MSK: Knee, right PERIPHERAL IV DATA: Not applicable SIGNED BY: RT Erickson(Gregg) December 30, 2023 1:21 PM documented in this encounterSelect Medical Specialty [facility]03-04-2024 History of Present illness Narrative* Avi Dobbins MD - 12/18/2023 8:13 AM EST Avi Dobbins MD Department of Orthopaedics Orthopaedics [address] [facility] [address] Dept: [phone] Dept December 18, 2023 CHIEF COMPLAINT: Established [...] PositiveThesally's [facility]: IMPRESSION: Mild osteoarthritis right knee. Sales And Marketing Representative: CHELSEA Transcribe Date/Time: Aug 01 2023 3:45P [...] allergies. Avi Dobbins MD documented in this encounterSelect Medical Specialty [facility]11-27-2023 History of Present illness Narrative* Ashley Abarca [...] 11, 2023 2:18 PM documented in this encounterSelect Medical Specialty [facility]11-27-2023 Nurse Note* Sidney Mullen - 09/11/2023 1:00 PM EST What is the reason for your visit today? Consult ventral hernia Who is your referring physician? Dr. Partida Are you having poor oral intake? NO Have you had unintentional weight loss of 15 lbs/7 Kg in the last 3-6 months? NO Bowels: regular Wound: clean & dry Temperature: No Drains: No documented in this encounterSelect Medical Specialty [facility]11-27-2023 History and physical note * Tresa Li MD - 09/11/2023 12:58 PM EST [facility] - HISTORY AND [...] ASD (atrial septal defect) 1988 repaired at [facility] at age 27 Bilateral hip bursitis 11/2021 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 Elevated uric acid in blood 10/31/2019 without gout Heel spur resolved with Tenex Hypercholesterolemia 10/31/2019 Hypertension on medication since 2012 Hypothyroidism 2017 Menopausal state Normal coronary arteries, Coronary Calcium Score = 0 (10/2019) 10/31/2019 (normal spontaneous vaginal delivery) 1988, 1989, 1993 1988: 8'12"; 1989 9'3"; 1993: 9'1" Prediabetes 10/31/2019 Psoriasis scalp Right plantar fasciitis treated with Tenex TIA (transient ischemic attack) 1988 during first , diagnosed ASD, repaired at [facility] after delivery Vitamin D deficiency 10/31/2019 PAST SURGICAL HISTORY Procedure Laterality Date COLONOSCOPY 07/23/2012 hemorrhoids, diverticulosis, advised 10-year follow-up HEART SURGERY HX 1988 at [facility], atrial septal defect repair LASIK Right [...] tablet by mouth four times a week. //Mon/Sun levothyroxine (SYNTHROID) 112 mcg tablet Take 1 [...] Service 09/11/2023 12:58 PM documented [facility] encounter[facility] History of Present illness Narrative* Roxi Guzman, [...] 08, 2023 2:24 PM documented in this encounterSelect [facility]11-14-2023 Miscellaneous Notes* Telephone Encounter - Cassandra Ybarra LPN - 08/29/2023 1:32 PM EST Contacted patient to advise of Recent Imaging Needed prior to Appointment. No answer and VM left tocontact this specifications writer back, will await callback and [employer] message also sent regarding phone call. Cassandra Ybarra LPN documented in this encounterSelect [facility]10-17-2023 Nurse Note* Rubi Pandey RN - 08/01/2023 4:33 PM EDT Immunization Pt identified by name/date of . Previous RN gave COVID 23-24; PCV20; & RSV VIS sheet earlier today and [facility]. Pt afebrile and allergies [...] Hepatitis A-n/a Hepatitis B-n/a Influenza-07/2023 Shingrix-x2 Covid-19 - VIS given, vaccine pended RSV- VIS given, vaccine pended See Immunization record in EPIC. Discussed with patient current recommendations from the CDC for routine adult immunizations. Questions answered. Pt. verbalizes understanding of information discussed. Provided patient with [facility] Immunization System Document and VIS sheet. VISUAL ACUITY Patient declines vision exam Date of Last Exam - scheduled in a few weeks [employer] Declined today BP Chon : BP Chon explained to pt. Questions answered. Pt. verbalizes understanding of information discussed. See BP Chon flowsheet for results. documented in this encounterSelect [facility]10-17-2023 History of Present illness Narrative* Isabel Ambrose [...] 01, 2023 4:17 PM documented in this encounterSelect [facility]10-17-2023 History of Present illness Narrative* Mirian Caba [...] 01, 2023 2:09 PM documented in this encounterSelect [facility]10-17-2023 History of Present illness Narrative* Margot Reyes [...] 01, 2023 12:18 PM documented in this encounterSelect [facility]10-17-2023 History of Present illness Narrative* Allan Partida MD - 08/01/2023 10:26 AM EDT Ms. Josh Huffman is a 63 year old female from [facility], who presents for a comprehensive health [...] (during first , diagnosed ASD, repaired at [facility] after delivery). ASD (Atrial Septal Defect) - 1987 (repaired at [facility] at age 27). Hypertension (on medication [...] Atrial septal defect repair - 1987 (at [facility]) LASIK - 2001 (Right) Colonoscopy - [...] age 59. Paternal Grandmother: Diabetes. Son (Esteban [id number]): Diabetes type 1. Son (Antonio b1990): No known problems Son (Sorin [id number]): Hearing loss (hearing aids since age 4). [...] not in past few months. OCCUPATIONAL HISTORY: [employer] Works 50 hours per week and travels [...] as in past before had COVID in [id number]. Not affecting ability to walk. No persistent [...] F) (Temporal Artery) Ht 175.3 cm (5' 9.02") Wt 98.1 kg (216 lb 4.3 oz) [...] rechecking in 1-2 years. There are markings "Groundglass opacities" in the left upper lobe which may be remnant of COVID; if any difficulty breathing or sense of of unable to take deep breath persists/worsens, then would recommend Pulmonology consultation. Ortho consult for right knee Gen surg consult for ventral hernia. See letter for final recommendations based on pending results. Allan Partida MD documented in this encounterSelect [facility]10-17-2023 History of Present illness Narrative* Claudia Ponce AUD - 08/01/2023 9:30 AM EDT EXECUTIVE PHYSICAL: HEARING SUMMARY Referred by: Allan Partida M.D. This patient was seen for puretone air conduction thresholds as part of a physical examination in [place] [id number]. A brief case history and puretone air [...] Refer to the Auditory Test Record [facility] for air conduction thresholds. NOTE: Testing involved assessment of air conduction thresholds only. The results should not be considered a comprehensive diagnostic audiologic evaluation. RIGHT EAR: Within normal limits 250-4000 Hz; mild hearing loss responses 6000- 8000 Hz. LEFT EAR: Within normal limits 250-6000 Hz; mild hearing loss response at 8000 Hz. RIGHT EAR LEFT EAR GROUNDSKEEPER 1* Average of 500, 1000, & 2000 Hz 13 dB 12 dB GROUNDSKEEPER 2* Average of 3000, 4000, & 6000 Hz 20 dB 18 dB COMPARISON: Asymmetry: No significant asymmetry was present between the right and left ears. NOTE: Asymmetry is defined as a difference between ears of > 15 dB for GROUNDSKEEPER 1 and/or > 30 dB for GROUNDSKEEPER 2 (AAO-HNS, 1997) Change: No significant change in air conduction thresholds from the previous test obtained on 10/31/2019 was noted. NOTE: A significant change is defined as a difference of > 15 dB for GROUNDSKEEPER 1 and/or > 20 dB forPTA 2 (AAO-HNS, 1997) RECOMMENDATIONS: *Results suggest normal hearing sensitivity of both ears at the majority of test frequencies. Retest as medically indicated. *Use hearing protective devices when exposed to loud noise to promote hearing loss prevention. ALLEN Andrews Licensed Audiology Aide [facility] # [id number] I verify that I have reviewed the history and test results, and I completed the interpretation and recommendations for this testing. González Mehta, [facility] Supervising [employer] DEFINITIONS: * Puretone Average (GROUNDSKEEPER) GROUNDSKEEPER 1 average of thresholds at 500, 1000, and 2000 Hz GROUNDSKEEPER 2 average of thresholds at 3000, 4000, and 6000 Hz Severity Descriptors Severity Range of intensity in decibels (dB) Normal 0-25 dB Mild 25-45 dB Moderate 45-60 dB Severe 60-90 dB Profound 90+ dB documented in this encounterSelect [facility]10-17-2023 History of Present illness Narrative* Trang Sosa RD - 08/01/2023 8:08 AM EDT [facility] Nutrition Progress Note Josh Britney Huffman [id number] Assessment Physical Findings: Current Weight and Height: 98.1 kg (216 lb 3.2 oz) 175.3 cm (5' 9") Body mass index is 31.93 kg/m . [place] BMI: 18.5-24.9 Percent body fat: 46.6 %, [place] body fat percentage is 18-28% for female. 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) Additional Activity: Lightly active (Light exercise: planned physical activity 1-3 days/week) Walking 3x/ week for 30-45mins Patient's symptoms are: Weight Concerns: failure to lose weight Pt reported weight goal: 185# Diet history: obtained and reviewed Breakfast: container of burundian yogurt and a banana Snack: apple with [...] Date ASD (atrial septal defect) repaired at [facility] at age 27 Heel spur HTN (hypertension) Hypothyroid levothyroxine 75 mcg Menopausal state (normal spontaneous vaginal delivery) 1987, 1989, 1993 1987: 8'12"; 1989 9'3"; 1993: 9'1" Pap smear for cervical cancer screening 2016 [...] fat 18.6% in excess and awaist circumference 8.5" above recommended. Waist to hip ratio and [...] both bone health andmaintenance/gain of muscle. Follow [facility] physician recommendations/prescriptions regarding vitamin D supplementation. [...] by: Trang Sosa RD documented in this encounterSelect [facility]ty [facility]10-11-2023 Miscellaneous Notes* Telephone Encounter - Allan Partida [...] in one year when you return to [facility] to confirm stability. Dr. Partida, pt has not completed. Do you want to order? documented in this encounterSelect [facility]ty [facility]2021 NoteHNO ID: [id number] Author: Dean Tejeda MD Service: ? Author [...] exercise in pool. Planning on vacation to [facility] [employer] in [place] in March. PAIN EVALUATION No data found in the last 1 encounters. History/Data Reviewed: PAST MEDICAL HISTORY Diagnosis Date - ASD (atrial septal defect) repaired at [facility] at age 27 - Heel spur - HTN (hypertension) - Hypothyroid levothyroxine 75 mcg - Menopausal state - (normal spontaneous vaginal delivery) 1987, 1989, 1993 1987: 8'12"; 1989 9'3"; 1993: 9'1" - Pap smear for cervical cancer screening 2016 - Plantar fasciitis - Psoriasis - TIA (transient ischemic attack) 1987 during first , diagnosed ASD, repaired at [facility] after delivery PAST SURGICAL HISTORY Procedure Laterality Date - EXTENSIVE FOOT SURGERY - HEART SURGERY HX 1987 at [facility], atrial septal defect repair - LASIK [...] mi/day ? Discussed training for vacation to [place] in March ? FU with us in future as needed-will communicate with Dr. Kumar if she wishes scheduled fu for OA in foot? Return if symptoms worsen or fail to improve. Part of this note has been created using voice recognition software. It may contain errors which are inherent in voice-recognition technology. Dean Tejeda, [facility]03-24-2021 NoteHNO ID: [id number] Author: Dean Tejeda MD Service: ? Author [...] - ASD (atrial septal defect) repaired at [facility] at age 27 - Heel spur - HTN (hypertension) - Hypothyroid levothyroxine 75 mcg - Menopausal state - (normal spontaneous vaginal delivery) 1987, 1989, 1993 1987: 8'12"; 1989 9'3"; 1993: 9'1" - Pap smear for cervical cancer screening 2016 - Plantar fasciitis - Psoriasis - TIA (transient ischemic attack) 1988 during first , diagnosed ASD, repaired at [facility] after delivery PAST SURGICAL HISTORY Procedure Laterality Date - EXTENSIVE FOOT SURGERY - HEART SURGERY HX 1987 at [facility], atrial septal defect repair - LASIK [...] No Known Allergies Resp 18 Ht 5' 9.5" (1.77m) Wt 225 lb (102.1kg) BMI 32.76 [...] which are inherent in voice-recognition technology. Dean Tejeda, [facility]02-17-2021 NoteHNO ID: [id number] Author: Dean Tejeda MD Service: ? Author [...] improvement, and even worsening with treatment by fruit stuffer at outside location. Has been seen by Dr. Kumar and sent here for consideration for percutaneous fasciotomy. PAIN EVALUATION 12/02/2020 0821 Pain Level: 8 Pain Location: Heel-Right Description: Aching Duration Amount of Time: 2.5 Duration Units: Years Frequency: Continuous Intervention: Exercise;Medication PAST MEDICAL HISTORY Diagnosis Date - ASD (atrial septal defect) repaired at [facility] at age 27 - Heel spur - HTN (hypertension) - Hypothyroid levothyroxine 75 mcg - Menopausal state - (normal spontaneous vaginal delivery) 1987, 1989, 1993 1987: 8'12"; 1989 9'3"; 1993: 9'1" - Pap smear for cervical cancer screening 2016 - Plantar fasciitis - Psoriasis - TIA (transient ischemic attack) 1987 during first , diagnosed ASD, repaired at [facility] after delivery PAST SURGICAL HISTORY Procedure Laterality Date - EXTENSIVE FOOT SURGERY - HEART SURGERY HX 1987 at [facility], atrial septal defect repair - LASIK [...] No Known Allergies Resp 16 Ht 5' 9" (1.75m) Wt 230 lb (104.3kg) BMI 33.95 [...] up PCUST Return for By phone with carton filler for scheduling for percutaneous fasciotomy. Part of this note has been created using voice recognition software. It may contain errors which are inherent in voice-recognition technology. Dean Tejeda [facility]02-11-2021 NoteHNO ID: [id number] Author: Gary Kumar Service: ? Author Type: [...] treatment as included: multiple conservative treatments including jvlm-jpl-hzmvmbg and custom foot orthotics, supportive shoe gear, stretching exercises, boot immobilization, night splint, physical therapy as well as electromagnetic pulse treatments with little improvements of her symptoms. PMH PAST MEDICAL HISTORY Diagnosis Date - ASD (atrial septal defect) repaired at [facility] at age 27 - Heel spur - HTN (hypertension) - Hypothyroid levothyroxine 75 mcg - Menopausal state - (normal spontaneous vaginal delivery) 1987, 1989, 1993 1987: 8'12"; 1989 9'3"; 1993: 9'1" - Pap smear for cervical cancer screening 2016 - Plantar fasciitis - Psoriasis - TIA (transient ischemic attack) 1987 during first , diagnosed ASD, repaired at [facility] after delivery MEDS Current Outpatient Medications [...] mood. Resp 16 Ht 175.3 cm (5' 9") Wt 104.8 kg (231 lb) BMI 34.11 [...] of the sinus tarsi (more content not included)...[facility] 11-26-2020 NoteHNO ID: [id number] Author: Jaylon MachucaDenise Mario Service: ? Author Type: Analytics Associate Type: Progress Notes Filed: 11/26/2020 3:14 PM [...] HEMATOLOGY: Negative for excessive bleeding, clots, bleeding disorders.[facility]01-21-2021 NoteHNO ID: [id number] Author: Gary Kumar Service: ? Author Type: [...] to have tried multiple conservative treatments including inoy-uzo-xlpiqxt and custom foot orthotics, supportive shoe gear, [...] that currently, she has been using the chpj-njz-jiylufg inserts and stretching exercises. Notes that the [...] - ASD (atrial septal defect) repaired at [facility] at age 27 - Heel spur - HTN (hypertension) - Hypothyroid levothyroxine 75 mcg - Menopausal state - (normal spontaneous vaginal delivery) 1987, 1989, 1993 1987: 8'12"; 1989 9'3"; 1993: 9'1" - Pap smear for cervical cancer screening 2015 - Plantar fasciitis - Psoriasis - TIA (transient ischemic attack) 1987 during first , diagnosed ASD, repaired at [facility] after delivery MEDS Current Outpatient Medications [...] SURGERY HX 1987 at (more content not included)...[facility]01-21-2021 Note HNO ID: [id number] Author: Jaylon Martin (Tech) Service: ? Author Type: Analytics Associate Type: Progress Notes Filed: 11/05/2020 10:36 AM [...] HEMATOLOGY: Negative for excessive bleeding, clots, bleeding disorders.[facility]Evaluation noteNo assessment information availableWGerman Hospital Work Phone: Evaluation note* Diagnosis Ascending aorta dilation (HCC) Thoracic aortic ectasia documented in this encounter [facility]* Diagnosis Abnormal hearing test- Primary Unspecified hearing loss documented in this encounter [facility]* Diagnosis Routine general medical examination at a health care facility documented in this encounter [facility]* Diagnosis Ascending aorta dilation (HCC) Thoracic aortic ectasia documented in this encounter [facility]* Diagnosis Primary osteoarthritis of right knee Primary localized osteoarthrosis, lower leg [facility] Diagnosis Routine general medical examination [...] specified viral diseases [facility]* Diagnosis Ventral hernia without obstruction or gangrene- Primary Ventral hernia, unspecified, without mention of obstruction or gangrene [facility]* Diagnosis Ventral hernia without obstruction or gangrene Ventral hernia, unspecified, without mention of obstruction or gangrene [facility]* Diagnosis Ventral hernia without obstruction or gangrene Ventral hernia, unspecified, without mention of obstruction or gangrene [facility]* Diagnosis Tear of medial meniscus of right knee, current, unspecified tear type, subsequent encounter- Primary Primary osteoarthritis of right knee Primary localized osteoarthrosis, lower leg [facility]* Diagnosis Tear of medial meniscus of right knee, current, unspecified tear type, subsequent encounter Primary osteoarthritis of right knee Primary localized osteoarthrosis, lower leg [facility]* Diagnosis Complex tear of medial meniscus of right knee as current injury, subsequent encounter- Primary Primary osteoarthritis of right knee Primary localized osteoarthrosis, lower leg Complex tear of medial meniscus of right knee as current injury, subsequent encounter [facility]* Diagnosis Pre-op evaluation- Primary Preoperative [...] injury, subsequent encounter [facility]* Diagnosis Complex tear of medial meniscus of right knee as current injury, subsequent encounter- Primary Primary osteoarthritis of right knee Primary localized osteoarthrosis, lower leg [facility]* Diagnosis Complex tear of medial meniscus of right knee as current injury, subsequent encounter- Primary documented in this encounter [facility] note* Diagnosis Pre-op evaluation- Primary Preoperative examination, [...] right knee- Primary documented in this encounter [facility] note* Diagnosis Pre-op evaluation- Primary Preoperative examination, [...] osteoarthrosis, lower leg documented in this encounter [facility] note* Diagnosis Pre-op evaluation- Primary Preoperative examination, [...] of lipoid metabolism documented in this encounter [facility]* Diagnosis Pre-op evaluation- Primary Preoperative examination, [...] health care facility documented in this encounter [facility]* Diagnosis Pre-op evaluation- Primary Preoperative examination, [...] unspecified cardiovascular conditions documented in this encounter [facility]* Diagnosis Pre-op evaluation- Primary Preoperative examination, [...] health care facility documented in this encounter [facility]* Diagnosis Pre-op evaluation- Primary Preoperative examination, [...] care facility- Primary documented in this encounter [facility]* Diagnosis Pre-op evaluation- Primary Preoperative examination, unspecified Primary hypertension Unspecified essential hypertension Hypothyroidism, unspecified type Ascending aorta dilation (4.3 cm on non-contrast CT 10/2019, and on CT angiogram 07/2023) Thoracic aortic ectasia Obesity, Class I, BMI 30-34.9 Obesity, unspecified ASD (atrial septal defect) (HCC) Ostium secundum type atrial septal defect TIA (transient ischemic attack) Unspecified transient cerebral ischemia Prediabetes Other abnormal glucose Hypercholesterolemia Pure hypercholesterolemia Left hand pain- Primary Pain in limb documented in this encounter [facility]* Diagnosis Pre-op evaluation- Primary Preoperative examination, unspecified Primary hypertension Unspecified essential hypertension Hypothyroidism, unspecified type Ascending aorta dilation (4.3 cm on non-contrast CT 10/2019, and on CT angiogram 07/2023) Thoracic aortic ectasia Obesity, Class I, BMI 30-34.9 Obesity, unspecified ASD (atrial septal defect) (HCC) Ostium secundum type atrial septal defect TIA (transient ischemic attack) Unspecified transient cerebral ischemia Prediabetes Other abnormal glucose Hypercholesterolemia Pure hypercholesterolemia Left hand pain Pain in limb documented in this encounter [facility]* Diagnosis Pre-op evaluation- Primary Preoperative examination, unspecified Primary hypertension Unspecified essential hypertension Hypothyroidism, unspecified type Ascending aorta dilation (4.3 cm on non-contrast CT 10/2019, and on CT angiogram 07/2023) Thoracic aortic ectasia Obesity, Class I, BMI 30-34.9 Obesity, unspecified ASD (atrial septal defect) (HCC) Ostium secundum type atrial septal defect TIA (transient ischemic attack) Unspecified transient cerebral ischemia Prediabetes Other abnormal glucose Hypercholesterolemia Pure hypercholesterolemia Primary osteoarthritis of first carpometacarpal joint of left hand- Primary Primary localized osteoarthrosis, hand Dupuytren's disease of palm Contracture of palmar fascia documented in this encounter [facility] Discharge instructionsAmbulatory Orders* Plastic surgery Location: None [facility] Work Phone: Hospital Discharge instructionsAmbulatory Orders* Rheumatology Location: None [facility] Work Phone: Progress note Author Alfredo Soni [facility] Services Note Date/Time July 30, 2025 1 2:55pm [facility] [address] [place] [address] [place] [address] OFFICE VISIT Date of Service: 07/30/25 MR#: [id number] Acct: [id number] Name: JOSH HUFFMAN Rep #: [id number] : [id number] Provider: SAVANNAH Fontana Age/Sex: 65/F Location: [facility] Status: Signed Intake Vital Signs 06/18/25 08:48 07/30/25 11:49 Height 5 ft 9 in 5 ft 9 in Weight: 218 lb 8 oz 220 lb BMI 32.2 32.5 BP 132/78 H 130/78 H Blood Pressure Location Lt brachial Lt brachial Position Sitting Sitting Respiration 16 16 Pulse 66 54 L Pulse Source Monitor Monitor Temp 97.8 F 97 F L Temp Source Temporal Temporal Pulse Oximetry (%) 99 97 Oxygen Delivery Method room air room air Intake Visit Reasons: 6 WEEK 07/02: Called. Left VM Chief Complaint: FU Local Announcer Required: No Is patient in pain?: No Allergies rosuvastatin Adverse Reaction (Severe, Verified 07/30/25 11:40) syncope Medications ?Medication ?Instructions ?Recorded ?Confirmed ?Type aspirin 81 mg tablet,delayed 81 mg PO DAILY 03/15/24 1 History release cyanocobalamin (vitamin B-12) 500 250 mcg PO DAILY 07/30/25 History mcg tablet diclofenac sodium 1 % topical gel 2 g topical ONCE 07/30/25 History (Voltaren Arthritis Pain) milk thistle 1,000 mg PO 03/15/24 5 History levothyroxine 100 mcg tablet 100 mcg PO .twice week #9 0 tabs 06/12/24 07/30/25 Rx levothyroxine 112 mcg tablet 112 mcg PO .five times we ekly #180 06/12/24 07/30/25 Rx tabs metoprolol succinate 100 mg 100 mg PO DAILY #90 tabs 0 02/20/25 07/30/25 Rx tablet,extended release 24 hr (Toprol XL) lisinopril 10 1 tab PO DAILY #90 tabs 03/1707/30/25 Rx mg-hydrochlorothiazide 12.5 mg tablet (Zestoretic) celecoxib 200 mg capsule 200 mg PO BID PRN pain #60 c aps 06/03/25 07/30/25 Rx atorvastatin 10 mg tablet (Lipitor) 10 mg PO QHS #30 t abs 06/19/25 07/30/25 Rx sulfasalazine 500 mg tablet 500 mg PO BID #60 tabs 07/30/25 Rx cholecalciferol (vitamin D3) 50 50 mcg PO QDAY 5 07/30/25 History mcg (2,000 unit) capsule (Vitamin D3) psyllium husk 3.4 gram/5.8 gram 2.5 g PO DAILY PRN 07/30/25 History oral powder (Metamucil [facility] Fiber) Have you fallen in the past year?: No Nurse's Note: pt states that the sx's she was having have subsided w/ switching statins. She has some GI upset w/ the sulfasalazine however it is getting better. Pt unable to get into arthritis center until 09/2025. [facility] Medical History Elevated C-reactive protein Dupuytren's contracture of left hand Degenerative disc disease, cervical Localized swelling on left hand Neck pain [...] at home: Yes HPI HPI Chief Complaint: FU Details: JOSH HUFFMAN, is a 65 F who presents to the office today for f/u on her inflammatory conditions. She was started on Sulfasalazine approximately one month ago as she was not able to get an appt for rheumatology until September. Caryn has been taking the medication as directed including the celecoxib and occasional Tylenol. She states that she really has not seen much change at all in her symptoms. She states that her hands are still the worse but she also feels little in the knees and hips. She has to take her medication with food or else she gets nauseated or even has diarrhea. ROS Const Constitutional: No body ache, chills, excessive sweating, fatigue, fever(s), frequent falls, headache(s), snoring, weakness, sleep problems or change in appetite Eyes Eyes: No blurry vision, change in vision, eye pain or Light sensitivity ENT ENT: No abnormal hearing, ear or mastoid pain, tinnitus, nasal congestion, headache(s), neck pain or sore throat Resp Respiratory: No cough, shortness of breath, snoring or wheezing Cardio Cardiology: No chest pain at rest, chest pain with exertion, excessive sweating,shortness of breath, dyspnea on exertion, lightheadedness, orthopnea or palpitations Gastro GI: No abdominal pain, change in bowel habits, constipation, cramping, diarrhea,nausea/dyspepsia or vomiting Genitourinary-Female: No burning urination, painful urination, urinary incontinence, urinary frequency, abnormal vaginal bleeding or pelvic pain Musc Musculoskeletal: No abnormal gait, joint pain, back pain, limited range of motion, neck pain or numbness Skin Skin: No dry skin, redness, lesions, itchy eyes, rash or wounds Neuro Neurology: No abnormal gait, abnormal hearing, weakness, frequent falls, headache(s), memory loss or numbness Psych Psychiatric: No anxiety, No change in appetite, No depression, No memory loss and No Thoughts of harming yourself/Others Endo Endocrine: No cold intolerance, excessive sweating, fatigue, flushing, heat intolerance, increased thirst/drinking or increased hunger Aller/Imm Allergy/Immunologic: No itchy eyes, seasonal allergy symptoms, hives or wheezing Oseas/Lymp Hematologic/Lymphatic: No easy bleeding, easy bruising, enlarged lymph nodes or other Exam Const General: cooperative, comfortable and no acute distress Nutritional Appearance: overweight Orientation: alert, awake and oriented x3 Limitations: mental status not altered HENMT Head: normocephalic and atraumatic Ears: hearing grossly normal bilaterally Eyes Alignment and Position: alignment normal and position normal Neck Neck: supple and nontender Carotids: no bruits Resp Effort & Inspection: normal respiratory effort, able to speak in complete sentences, symmetric chest movement and normal respiratory pattern Auscultation: Bilateral: Clear to Auscultation Cardio Rate: regular rate Rhythm: regular rhythm Heart Sounds: S1 normal, S2 normal and no murmurs Bruits: no carotid bruits Pulses: radial pulses present bilaterally 2+ Musc Musculoskeletal: Yes joint tenderness and decreased range of motion; No joint redness Other: She does appear to have a little puffiness/swelling in the fingers. She has no erythema, ecchymosis bruising, or other acute changes to the skin. Some decreased movements in the fingers. Neuro General: patient alert, patient awake and patient oriented x3 Cognition: normal cognition Speech: speech normal Gait: normal gait Extrem General: no edema Psych Appearance: grossly normal Mental Status: mental status grossly normal Mood: congruent mood Affect: normal affect Speech and Movement: speech and movement normal Attitude: cooperative Coding Level of Care Code Off vis,est,level 3 Diagnoses Arthritis M19.90 Elevated C-reactive protein R79.82 Assessment and Plan Assessment and Plan (1) Arthritis: Status: Chronic Plan: Patient presents the office today for follow-up after being on sulfasalazine forthe past month. Patient states that she has been taking the medication as directed at the same time really has not seen any change in her aches and pains. Patient states that she did have improvement while she was on the steroid but with this medication she is just is not seeing much difference. Again patient is scheduled to see rheumatology in September and also has a follow-up here in the office in September. She did find that she does have to take this medication(sulfasalazine) with meals in that if she does not she does have some nausea andsome other GI issues that make it hard to tolerate. At this time we discussed that she still is on a low-dose of the sulfasalazine and therefore I do think there are opportunities to increase this at the same time we will want to make sure that we speak with her PCP about the plan. This again was started after discussion with rheumatology since we knew that she was not going to be able to get in for a long time. So at this time would defer increasing to the PCP sincethey spoke with the certified ski patroller prior to starting this medication. Overall though she is tolerating therefore can continue with her current medication dosing. (2) Elevated C-reactive protein: Status: Acute Plan: We Argun to go back and recheck her CBC as well as her markers of inflammation in 1 month. Orders: Orders CBC W/Diff, Automated Today I10 - Essential (primary) hypertension CRP Today R79.82 - Elevated C-reactive protein (CRP) Erythrocyte Sed Rate Today M19.90 - Unspecified osteoarthritis, unspecified site Clinical Quality Measures Falls Risk Screening/Assistive Devices Have you fallen in the past year?: No 07/30/25 0149 <Electronically signed by Alfredo NUÑEZ> Date _ Alfredo NUÑEZ Cosigner Signature: Date (if applicable) CC: ~ [employer] Work Phone: Reason for referral (narrative)* Diagnostic Procedure Only (Routine) - Closed Specialty Diagnoses / Procedures Referred By Contac t Referred To Contact XR IMAGING Diagnoses Primary osteoarthritis of right knee Procedures XR KNEE GENERAL 4V AP BOTH/PA BOTH/LAT/MERC RIGHT RADIOLOGIC EXAM KNEE COMPLETE 4/MORE VIEWS Allan Partida MD [address] [id number] Xr Imaging [id number] Referral ID Status Reason Start Date Expiration Date V isits Requested Visits Authorized [id number] Closed Auto-Generate d Referral 08/01/2023 08/30/2024 1 1 [facility] for visit Narrative* MRI/CT (Routine) - Pending Review Specialty Diagnoses / Procedures Referred By Santana t Referred To Contact CT IMAGING Diagnoses Encounter for screening for cardiovascular disorders Procedures CT CALCIUM SCORING SELF PAY UNLISTED COMPUTED TOMOGRAPHY PROCEDURE David Hull MD [address] [phone] Phone: tel: fax: [facility] IM[facility]ING [place] [address] Referral ID Status Reason Start Date Expiration Date Visits Requested Visits Authorized [id number] Pending Review Auto-Generat ed Referral 11/12/2024 12/12/2025 1 1 [facility] for visit Narrative* Diagnostic Procedure Only (Routine) - Closed Specialty Diagnoses / Procedures Referred By Santana smith Referred To Contact XR IMAGING Diagnoses Routine general medical examination at a health care facility Procedures DXA-AXIAL SKELETON DXA BONE DENSITY STUDY 1/> SITES AXIAL SKEL David Hull MD [address] [id number] Phone: tel: fax: XR IMAGING [id number] Referral ID Status Reason Start Date Expiration Date V isits Requested Visits Authorized [id number] Closed Auto-Generate d Referral 11/12/2024 12/12/2025 1 1 [facility] Chief Complaint Chief Complaint Description Start Date right foot pain Preliminary chief co mplaint data, not yet signed by the author as of Instructions Instruction Description Start Date CompletedPlease follow-up wi Primary Care Physician or Saw Cleaner for treatment or adjustment of medication regarding [...] Referral Specialty Diagnoses / Procedures Referred By Contac t Referred To Contact CT IMAGING Diagnoses Disorder of arteries and arterioles (HCC) Ascending aorta dilation (HCC) Procedures CTA CHEST (GATED) W IVCON CT ANGIOGRAPHY CHEST W/CONTRAST/NONCONTRAST Allan Partida MD [address] [place] [address] Ct Imaging [place] [address] Referral ID Status Reason Start Date Expiration Date Visits Requested Visits Authorized [id number] Pending Review Auto-Generat ed Referral 3 08/24/2024 1 1 Specialty Diagnoses / Procedures Referred By Contac t Referred To Contact General Surgery Diagnoses Ventral hernia without obstruction or gangrene Procedures CONSULT TO GENERAL SURGERY OFFICE/OUTPATIENT [facility] 60-74 MINUTES Allan Partida MD [address] [place] [address] Referral ID Status Reason Start Date Expiration Date Visits Requested Visits Authorized [id number] Authorized PCP Requested Referral 3 07/31/2024 1 1 Specialty Diagnoses / Procedures Referred By Contac t Referred To Contact Orthopedics Diagnoses Primary osteoarthritis of right knee Bursitis of both hips, unspecified bursa Procedures CONSULT PANEL TO ORTHOPAEDICS OFFICE/OUTPATIENT [facility] 60-74 MINUTES Allan Partida MD [address] [place] [address] Referral ID Status Reason Start Date Expiration Date Visits Requested Visits Authorized [id number] Authorized PCP Requested Referral 3 07/31/2024 1 1 Specialty Diagnoses / Procedures Referred By Contac t Referred To Contact XR IMAGING Diagnoses Primary osteoarthritis of right knee Procedures XR KNEE GENERAL 4V AP BOTH/PA BOTH/LAT/MERC RIGHT RADIOLOGIC EXAM KNEE COMPLETE 4/MORE VIEWS Allan Partida MD [address] [phone] Xr Imaging [id number] Referral ID Status Reason Start Date Expiration Date V isits Requested Visits Authorized [id number] Closed Auto-Generate d Referral 08/01/2023 08/30/2024 1 1 Specialty Diagnoses / Procedures Referred By Contac t Referred To Contact CT IMAGING Diagnoses Ventral hernia without obstruction or gangrene Procedures CT ABD/PEL WO IVCON CT ABD & PELVIS W/O CONTRAST Roxi Baig, SERVICES REP.PEN MAKER [address] [place] [id number] [address] [id number] Referral ID Status Reason Start Date Expiration Date Visits Requested Visits Authorized [id number] Pending Review Auto-Generat ed Referral 3 09/27/2024 1 1 Referral ID Status Reason Start Date Expiration Date Visits Requested Visits Authorized [id number] Pending Review Auto-Genera lilliam Referral Patient Cleared [...] CONTRAST Avi Sharp MD [address] [place] [address] [place] [address] Referral ID Status Reason Start Date Expiration Date Visits Requested Visits Authorized [id number] Pending Review Auto-Generat ed Referral 12/18/2023 01/16/2025 [...] Neck pain March 21, 2025 8:53a m Chief Complaint Admit Date EORDERS March 19, 2025 11:19 am 6 m March 21, 2025 8:53a m Chronic neck pain March 24, 2025 10:25 am DDD CERVICAL RX HERE April 30, 2025 1:0 0pm Chief Complaint Admit Date EORDERS March 19, 2025 11:19 am 6 m March 21, 2025 8:53a m Chronic neck pain March 24, 2025 10:25 am DDD CERVICAL RX HERE April 30, 2025 1:0 0pm PT AND L HAND F/U June 18, 2025 8:42am Reason for Visit Admit Date Health care maintenance March 21, 2025 8 :53am Hyperlipidemia March 21, 2025 8:53a m Hypertension March 21, 2025 8:53a m Hypothyroidism March 21, 2025 8:53a m Localized swelling on left hand March 8:53am Neck pain March 21, 2025 8:53a m Degenerative disc disease, cervical Sept emb2024 8:42am Dupuytren's contracture of left hand Sep 2024 8:42am Arthritis June 18, 2025 8:42am Hyperlipidemia June 18, 2025 8:42am Hypertension June 18, 2025 8:42am Chief Complaint Admit Date DDD CERVICAL RX HERE April 30, 2025 1:0 0pm PT AND L HAND F/U June 18, 2025 8:42am EORDERS July 28, 2025 1 1:23am Amb Documentation July 28, 2025 1 2:30pm 6 WEEK 07/02: Called. Left VM July 162024 11:26am Reason for Visit Admit Date Degenerative disc disease, cervical Sept ember 2024 8:42am Dupuytren's contracture of left hand Sep tember 2024 8:42am Arthritis June 18, 2025 8:42am Hyperlipidemia June 18, 2025 8:42am Hypertension June 18, 2025 8:42am Elevated C-reactive protein July 11:26am Arthritis July 30, 2025 1 1:26am Additional Source Comments Reason for Visit (unrecogniz ed section and content) Reason Comments Radiology Mammogram Specialty Diagnoses / Procedures Referred By Santana t Referred To Contact BR IMAGING Diagnoses Routine general medical examination at a health care facility Procedures KATE SCREENING W RADHA SCREENING DIGITAL BREAST TOMOSYNTHESIS BI SCREENING MAMMOGRAPHY BI 2-VIEW BREAST INC CAD David Hull MD [address] [place] [address] Phone: tel: fax: BR IMAG[facility] [address] [place] [address] Referral ID Status Reason Start Date Expiration Date V isits Requested Visits Authorized [id number] Closed Auto-Generate d Referral 11/12/2024 12/12/2025 1 [...] CT ANGIOGRAPHY CHEST W/CONTRAST/NONCONTRAST Allan Partida MD [address] [place] [address] [place] [address] Referral ID Status Reason Start Date Expiration Date Visits Requested Visits Authorized [id number] Waiting for Online Response Auto-Genera lilliam Referral [...] KNEE COMPLETE 4/MORE VIEWS Allan Partida MD [address] [place] [address] Xr Imaging [place] [address] Referral ID Status Reason Start Date Expiration Date V isits Requested Visits Authorized [id number] Closed Auto-Generate d Referral 08/01/2023 08/30/2024 1 1 Reason Comments [facility] Physical Reason Comments Appointment Imaging Needed Prior to Appointment Reason Comments Radiology CT Specialty Diagnoses / Procedures Referred By Contac t Referred To Contact CT IMAGING Diagnoses Ventral hernia without obstruction or gangrene Procedures CT ABD/PEL WO IVCON CT ABD & PELVIS W/O CONTRAST Roxi Baig APRN.PEN MAKER [address] [place] [address] Ct Imaging [place] [address] Referral ID Status Reason Start Date Expiration Date Visits Requested Visits Authorized [id number] Pending Review Auto-Genera lilliam Referral Patient Cleared - Admin/Chair man/Directo r advise to proceed or did not respond 3 09/27/2024 2 2 Reason Comments Consult Specialty Diagnoses / Procedures Referred By Contac t Referred To Contact General Surgery Diagnoses Ventral hernia without obstruction or gangrene Procedures CONSULT TO GENERAL SURGERY OFFICE/OUTPATIENT [facility] 60-74 MINUTES Allan Partida MD [address] [place] [address] Referral ID Status Reason Start Date Expiration Date V isits Requested Visits Authorized [id number] Closed PCP Requested Referral 08/01/2023 07/31/2024 1 [...] Avi Sharp MD [address] [place] [address] [place] [address] Referral ID Status Reason Start Date Expiration Date V isits Requested Visits Authorized [id number] Closed Auto-Generate d Referral 12/19/2023 06/16/2024 1 [...] Refill Request Reason Comments Nurse Triage Call [facility] 3 Reason Onset Date Comments Physical INTM Immunizations 12/17/2024 Flu vaccination Reason Comments Radio Gen RMP Specialty Diagnoses / Procedures Referred By Contac t Referred To Contact XR IMAGING Diagnoses Left hand pain Procedures XR HAND GENERAL 3V PA/LAT/OBL LEFT RADEX HAND MINIMUM 3 VIEWS Avi Dobbins MD [address] [place] [address] Phone: tel: fax: [place] [address] Referral ID Status Reason Start Date Expiration Date V isits Requested Visits Authorized [id number] Closed Auto-Generate d Referral 04/03/2025 05/03/2026 1 1 Reason Comments Established Patient Patient is here toda y for left hand lump in palm of hand, going on for 8 months,and sharp pain in the wrist area going on for 2 months. Pain 5/10. Pt is right hand dominant. Pt is retired. Hobby :gardening. Mobility is ok. INFORMATION SOURCE (unrecogn ized section and content) DATE CREATED AUTHOR 01/20/2021 [facility] DATE CREATED AUTHOR AUTHOR'S ORGANIZ ATION 02/04/2021 [facility] DATE CREATED AUTHOR AUTHOR'S ORGANIZ ATION 02/04/2021 [facility] DATE CREATED AUTHOR AUTHOR'S ORGANIZ ATION 02/08/2024 [facility] DATE CREATED AUTHOR AUTHOR'S ORGANIZ ATION 05/09/2025 [facility] DATE CREATED AUTHOR AUTHOR'S ORGANIZ ATION 08/11/2025 [facility] Goals (unrecognized section and content) Goals may [...] DO Primary Care Provider, Attending Provider Active Crane Ladle Person Relationship Specialty Start Date End Date Leon Alvarado DO PCP - General Family Medicine 12/02/20 Leon Alvarado DO Referring Family Medicine 08/02/19 Crane Ladle Person Relationship Specialty Start Date End Date Nubia Sage DO [address] [place], [place] [address] PCP - General Family Medicine 08/01/23 Leon Alvarado DO Referring Family Medicine 08/02/19 Crane Ladle Person Relationship Specialty Start Date End Date Nubia Sage DO [address] [place] [address] PCP - General Family Medicine 08/01/23 Leon Alvarado DO Referring Family Medicine 08/02/19 Crane Ladle Person Relationship Specialty Start Date End Date Nubia Sage DO [address] [place] [address] PCP - General Family Medicine 08/01/23 Leon Alvarado DO Referring Family Medicine 08/02/19 Crane Ladle Person Relationship Specialty Start Date End Date Nubia Sage DO [address] [facility] [address] [place] [address] PCP - General Family Medicine 08/01/23 Leon Alvarado DO Referring Family Medicine 08/02/19 Crane Ladle Person Relationship Specialty Start Date End Date Nubia Sage DO [address] [facility] [address] [place] [address] PCP - General Family Medicine 08/01/23 Leon Alvarado DO Referring Family Medicine 08/02/19 Crane Ladle Person Relationship Specialty Start Date End Date Nubia Sage DO [address] [facility] [address] [place] [address] PCP - General Family Medicine 08/01/23 Leon Alvarado DO Referring Family Medicine 08/02/19 Crane Ladle Person Relationship Specialty Start Date End Date Nubia Sage DO [address] [facility] [address] [place] [address] PCP - General Family Medicine 08/01/23 Leon Alvarado DO Referring Family Medicine 08/02/19 Crane Ladle Person Relationship Specialty Start Date End Date Nubia Sage DO [address] [facility] [address] [place] [address] PCP - General Family Medicine 08/01/23 Leon Alvarado DO Referring Family Medicine 08/02/19 Crane Ladle Person Relationship Specialty Start Date End Date Nubia Sage DO [address] [facility] [address] [place] [address] PCP - General Family Medicine 08/01/23 Leon Alvarado DO Referring Family Medicine 08/02/19 Crane Ladle Person Relationship Specialty Start Date End Date Nubia Sage DO [address] [facility] [address] [place] [address] PCP - General Family Medicine 08/01/23 Leon Alvarado DO Referring Family Medicine 08/02/19 Crane Ladle Person Relationship Specialty Start Date End Date Nubia Sage DO [address] [facility] [address] [place] [address] PCP - General Family Medicine 08/01/23 Leon Alvarado DO Referring Family Medicine 08/02/19 Crane Ladle Person Relationship Specialty Start Date End Date Nubia Sage DO [address] [facility] [address] [place] [address] PCP - General Family Medicine 08/01/23 Leon Alvarado DO Referring Family Medicine 08/02/19 Crane Ladle Person Relationship Specialty Start Date End Date Nubia Sage DO [address] [place] [address] PCP - General Family Medicine 08/01/23 Leon Alvarado DO Referring Family Medicine 08/02/19 Crane Ladle Person Relationship Specialty Start Date End Date Nubia Sage DO [address] [place] [address] PCP - General Family Medicine 08/01/23 Leon Alvarado DO Referring Family Medicine 08/02/19 Crane Ladle Person Relationship Specialty Start Date End Date Nubia Sage DO [address] [place] [address] PCP - General Family Medicine 08/01/23 Leon Alvarado DO Referring Family Medicine 08/02/19 Crane Ladle Person Relationship Specialty Start Date End Date Nubia Sage DO [address] [place] [address] PCP - General Family Medicine 08/01/23 Leon Alvarado DO Referring Family Medicine 08/02/19 Crane Ladle Person Relationship Specialty Start Date End Date Nubia Sage DO [address] [facility] [address] [place] [address] PCP - General Family Medicine 08/01/23 Leon Alvarado DO Referring Family Medicine 08/02/19 Crane Ladle Person Relationship Specialty Start Date End Date Nubia Sage DO [address] [facility] [address] [place] [address] PCP - General Family Medicine 08/01/23 Leon Alvarado DO Referring Family Medicine 08/02/19 Crane Ladle Person Relationship Specialty Start Date End Date Nubia Sage DO PCP - General Family Medicine 08/01/23 Leon Alvarado DO Referring Family Medicine 08/02/19 Crane Ladle Person Relationship Specialty Start Date End Date Nubia Sage DO PCP - General Family Medicine 08/01/23 Leon Alvarado DO Referring Family Medicine 08/02/19 Crane Ladle Person Relationship Specialty Start Date End Date Nubia Sage DO PCP - General Family Medicine 08/01/23 Leon Alvarado DO Referring Family Medicine 08/02/19 Crane Ladle Person Relationship Specialty Start Date End Date Nubia Sage DO PCP - General Family Medicine 08/01/23 Leon Alvarado DO Referring Family Medicine 08/02/19 Crane Ladle Person Relationship Specialty Start Date End Date Nubia SageDO PCP - General Family Medicine 08/01/23 Leon Alvarado DO Referring Family Medicine 08/02/19 Crane Ladle Person Relationship Specialty Start Date End Date Nubia SageDO PCP - General Family Medicine 08/01/23 Leon Alvarado DO Referring Family Medicine 08/02/19 Crane Ladle Person Relationship Specialty Start Date End Date Nubia SageDO PCP - General Family Medicine 08/01/23 Leon [...] Care Provider Active Start: March 24, 2025 End: March 24, 2025 Dr. Chester Valentine MD Attending Provider Active Start: March 24, 2025 End: March 24, 2025 Dr. Chester Valentine MD Referring Provider Active Start: March 24, 2025 End: March 24, 2025 Crane Ladle Person Relationship Specialty Start Date End Date AlonaCarlosNubiamaximino Aldana PCP - General Family Medicine 08/01/23 Leon Alvarado DO Referring Family Medicine 08/02/19 Crane Ladle Person Relationship Specialty Start Date End Date AlonaNubia KatyaDO PCP - General Family Medicine 08/01/23 Leon Alvarado DO Referring Family Medicine 08/02/19 Team Status: Active Member Role/Relationship Status Dates Dr. Chester Valentine MD Primary Care Provider Active Team Status: Inactive Member Role/Relationship Status Dates Dr. Chester Valentine MD Primary Care Provider Active Start: March 19, 2025 End: March 19, 2025 Dr. Chester Valentine MD Attending Provider Active Start: March 19, 2025 End: March 19, 2025 Dr. Chester Valentine MD Referring Provider Active Start: March 19, 2025 End: March 19, 2025 Team Status: Inactive Member Role/Relationship Status Dates Dr. Chester Valentine MD Primary Care Provider Active Start: March 21, 2025 End: March 21, 2025 Dr. Chester Valentine MD Attending Provider Active Start: March 21, 2025 End: March 21, 2025 Dr. Chester Valentine MD Referring Provider Active Start: March 21, 2025 End: March 21, 2025 Team Status: Inactive Member Role/Relationship Status Dates Dr. Chester Valentine MD Primary Care Provider Active Start: March 24, 2025 End: March 24, 2025 Dr. Chester Valentine MD Attending Provider Active Start: March 24, 2025 End: March 24, 2025 Dr. Chester Valentine MD Referring Provider Active Start: March 24, 2025 End: March 24, 2025 Team Status: Inactive Member Role/Relationship Status Dates Dr. Chester Valentine MD Primary Care Provider Active Start: April 30, 2025 End: April 30, 2025 Dr. Chester Valentine MD Attending Provider Active Start: April 30, 2025 End: April 30, 2025 Dr. Chester Valentine MD Referring Provider Active Start: April 30, 2025 End: April 30, 2025 Team Status: Inactive Member Role/Relationship Status Dates Dr. Chester Valentine MD Primary Care Provider Active Start: June 18, 2025 End: June 18, 2025 Dr. Chester Valentine MD Attending Provider Active Start: June 18, 2025 End: June 18, 2025 Dr. Chester Valentine MD Referring Provider Active Start: June 18, 2025 End: June 18, 2025 Team Status: Active Member Role/Relationship Status Dates Dr. Chester Valentine MD Primary care physician Activ e Team Status: Inactive Member Role/Relationship Status Dates Dr. Chester Valentine MD Primary care physician Activ e Start: March 19, 2025 End: March 19, 2025 Dr. Chester Valentine MD Attending physician Active Start: March 19, 2025 End: March 19, 2025 Dr. Chester Valentine MD Referring Provider Active Start: March 19, 2025 End: March 19, 2025 Team Status: Inactive Member Role/Relationship Status Dates Dr. Chester Valentine MD Primary care physician Activ e Start: March 21, 2025 End: March 21, 2025 Dr. Chester Valentine MD Attending physician Active Start: March 21, 2025 End: March 21, 2025 Dr. Chester Valentine MD Referring Provider Active Start: March 21, 2025 End: March 21, 2025 Team Status: Inactive Member Role/Relationship Status Dates Dr. Chester Valentine MD Primary care physician Activ e Start: March 24, 2025 End: March 24, 2025 Dr. Chester Valentine MD Attending physician Active Start: March 24, 2025 End: March 24, 2025 Dr. Chester Valentine MD Referring Provider Active Start: March 24, 2025 End: March 24, 2025 Team Status: Inactive Member Role/Relationship Status Dates Dr. Chester Valentine MD Primary care physician Activ e Start: April 30, 2025 End: April 30, 2025 Dr. Chester Valentine MD Attending physician Active Start: April 30, 2025 End: April 30, 2025 Dr. Chester Valentine MD Referring Provider Active Start: April 30, 2025 End: April 30, 2025 Team Status: Inactive Member Role/Relationship Status Dates Dr. Chester Valentine MD Primary care physician Activ e Start: June 18, 2025 End: June 18, 2025 Dr. Chester Valentine MD Attending physician Active Start: June 18, 2025 End: June 18, 2025 Dr. Chester Valentine MD Referring Provider Active Start: June 18, 2025 End: June 18, 2025 Team Status: Inactive Member Role/Relationship Status Dates Dr. Chester Valentine MD Primary care physician Activ e Start: June 18, 2025 End: June 18, 2025 Dr. Chester Valentine MD Attending physician Active Start: June 18, 2025 End: June 18, 2025 Dr. Chester Valentine MD Referring Provider Active Start: June 18, 2025 End: June 18, 2025 Team Status: Inactive Member Role/Relationship Status Dates Dr. Chester Valentine MD Primary care physician Activ e Start: April 30, 2025 End: April 30, 2025 Dr. Chester Valentine MD Attending physician Active Start: April 30, 2025 End: April 30, 2025 Dr. Chester Valentine MD Referring Provider Active Start: April 30, 2025 End: April 30, 2025 Team Status: Inactive Member Role/Relationship Status Dates Dr. Chester Valentine MD Primary care physician Activ e Start: June 18, 2025 End: June 18, 2025 Dr. Chester Valentine MD Attending physician Active Start: June 18, 2025 End: June 18, 2025 Dr. Chester Valentine MD Referring Provider Active Start: June 18, 2025 End: June 18, 2025 Team Status: Inactive Member Role/Relationship Status Dates Dr. Chester Valentine MD Primary care physician Activ e Start: June 18, 2025 End: June 18, 2025 Dr. Chester Valentine MD Attending physician Active Start: June 18, 2025 End: June 18, 2025 Dr. Chester Valentine MD Referring Provider Active Start: June 18, 2025 End: June 18, 2025 Team Status: Inactive Member Role/Relationship Status Dates Dr. Chester Valentine MD Primary care physician Activ e Start: July 28, 2025 End: July 28, 2025 Dr. Chester Valentine MD Attending physician Active Start: July 28, 2025 End: July 28, 2025 Dr. Chester Valentine MD Referring Provider Active Start: July 28, 2025 End: July 28, 2025 Team Status: Active Member Role/Relationship Status Dates Dr. Chester Valentine MD Primary care physician Activ e Start: July 28, 2025 Jailyn Caro MA Attending physician Active Start: July 28, 2025 Team Status: Inactive Member Role/Relationship Status Dates SAVANNAH Alaniz Attending physician Active S tart: July 30, 2025 End: July 30, 2025 Dr. Chester Valentine MD Primary care physician Activ e Start: July 30, 2025 End: July 30, 2025 Dr. Chester Valentine MD Referring Provider Active Start: July 30, 2025 End: July 30, 2025 Source Comments (unrecognize d section and content) In the event this informatio n is protected by the Federal Confidentiality of Alcohol and Drug Abuse Patient Records regulations: The Federal rules restrict any use of the information to criminally investigate or prosecute any alcohol or drug abuse patient.[facility] the event this information is protected by the Federal Confidentiality of Alcohol and Drug Abuse Patient Records regulations: The Federal rules restrict any use of the information to criminally investigate or prosecute any alcohol or drug abuse patient.[facility]In the event this information is protected by the Federal Confidentiality of Alcohol and Drug Abuse Patient Records regulations: The Federal rules restrict any use of the information to criminally investigate or prosecute any alcohol or drug abuse patient.[facility]In the event this information is protected by the Federal Confidentiality of Alcohol and Drug Abuse Patient Records regulations: The Federal rules restrict any use of the information to criminally investigate or prosecute any alcohol or drug abuse patient.[facility]In the event this information is protected by the Federal Confidentiality of Alcohol and Drug Abuse Patient Records regulations: The Federal rules restrict any use of the information to criminally investigate or prosecute any alcohol or drug abuse patient.[facility]In the event this information is protected by the Federal Confidentiality of Alcohol and Drug Abuse Patient Records regulations: The Federal rules restrict any use of the information to criminally investigate or prosecute any alcohol or drug abuse patient.[facility]In the event this information is protected by the Federal Confidentiality of Alcohol and Drug Abuse Patient Records regulations: The Federal rules restrict any use of the information to criminally investigate or prosecute any alcohol or drug abuse patient.[facility]In the event this information is protected by the Federal Confidentiality of Alcohol and Drug Abuse Patient Records regulations: The Federal rules restrict any use of the information to criminally investigate or prosecute any alcohol or drug abuse patient.[facility]In the event this information is protected by the Federal Confidentiality of Alcohol and Drug Abuse Patient Records regulations: The Federal rules restrict any use of the information to criminally investigate or prosecute any alcohol or drug abuse patient.[facility]In the event this information is protected by the Federal Confidentiality of Alcohol and Drug Abuse Patient Records regulations: The Federal rules restrict any use of the information to criminally investigate or prosecute any alcohol or drug abuse patient.[facility]In the event this information is protected by the Federal Confidentiality of Alcohol and Drug Abuse Patient Records regulations: The Federal rules restrict any use of the information to criminally investigate or prosecute any alcohol or drug abuse patient.[facility]In the event this information is protected by the Federal Confidentiality of Alcohol and Drug Abuse Patient Records regulations: The Federal rules restrict any use of the information to criminally investigate or prosecute any alcohol or drug abuse patient.[facility]In the event this information is protected by the Federal Confidentiality of Alcohol and Drug Abuse Patient Records regulations: The Federal rules restrict any use of the information to criminally investigate or prosecute any alcohol or drug abuse patient.[facility]In the event this information is protected by the Federal Confidentiality of Alcohol and Drug Abuse Patient Records regulations: The Federal rules restrict any use of the information to criminally investigate or prosecute any alcohol or drug abuse patient.[facility]In the event this information is protected by the Federal Confidentiality of Alcohol and Drug Abuse Patient Records regulations: The Federal rules restrict any use of the information to criminally investigate or prosecute any alcohol or drug abuse patient.[facility]In the event this information is protected by the Federal Confidentiality of Alcohol and Drug Abuse Patient Records regulations: The Federal rules restrict any use of the information to criminally investigate or prosecute any alcohol or drug abuse patient.[facility]In the event this information is protected by the Federal Confidentiality of Alcohol and Drug Abuse Patient Records regulations: The Federal rules restrict any use of the information to criminally investigate or prosecute any alcohol or drug abuse patient.[facility]In the event this information is protected by the Federal Confidentiality of Alcohol and Drug Abuse Patient Records regulations: The Federal rules restrict any use of the information to criminally investigate or prosecute any alcohol or drug abuse patient.[facility]In the event this information is protected by the Federal Confidentiality of Alcohol and Drug Abuse Patient Records regulations: The Federal rules restrict any use of the information to criminally investigate or prosecute any alcohol or drug abuse patient.[facility]In the event this information is protected by the Federal Confidentiality of Alcohol and Drug Abuse Patient Records regulations: The Federal rules restrict any use of the information to criminally investigate or prosecute any alcohol or drug abuse patient.[facility]In the event this information is protected by the Federal Confidentiality of Alcohol and Drug Abuse Patient Records regulations: The Federal rules restrict any use of the information to criminally investigate or prosecute any alcohol or drug abuse patient.[facility]In the event this information is protected by the Federal Confidentiality of Alcohol and Drug Abuse Patient Records regulations: The Federal rules restrict any use of the information to criminally investigate or prosecute any alcohol or drug abuse patient.[facility]In the event this information is protected by the Federal Confidentiality of Alcohol and Drug Abuse Patient Records regulations: The Federal rules restrict any use of the information to criminally investigate or prosecute any alcohol or drug abuse patient.[facility]In the event this information is protected by the Federal Confidentiality of Alcohol and Drug Abuse Patient Records regulations: The Federal rules restrict any use of the information to criminally investigate or prosecute any alcohol or drug abuse patient.[facility]In the event this information is protected by the Federal Confidentiality of Alcohol and Drug Abuse Patient Records regulations: The Federal rules restrict any use of the information to criminally investigate or prosecute any alcohol or drug abuse patient.[facility]In the event this information is protected by the Federal Confidentiality of Alcohol and Drug Abuse Patient Records regulations: The Federal rules restrict any use of the information to criminally investigate or prosecute any alcohol or drug abuse patient.[facility] ColumbusIn the event this information is protected by the Federal Confidentiality of Alcohol and Drug Abuse Patient Records regulations: The Federal rules restrict any use of the information to criminally investigate or prosecute any alcohol or drug abuse patient.[facility]In the event this information is protected by the Federal Confidentiality of Alcohol and Drug Abuse Patient Records regulations: The Federal rules restrict any use of the information to criminally investigate or prosecute any alcohol or drug abuse patient.[facility] ColumbusIn the event this information is protected by the Federal Confidentiality of Alcohol and Drug Abuse Patient Records regulations: The Federal rules restrict any use of the information to criminally investigate or prosecute any alcohol or drug abuse patient.[facility] ColumbusIn the event this information is protected by the Federal Confidentiality of Alcohol and Drug Abuse Patient Records regulations: The Federal rules restrict any use of the information to criminally investigate or prosecute any alcohol or drug abuse patient.[facility]In the event this information is protected by the Federal Confidentiality of Alcohol and Drug Abuse Patient Records regulations: The Federal rules restrict any use of the information to criminally investigate or prosecute any alcohol or drug abuse patient.[facility] ColumbusIn the event this information is protected by the Federal Confidentiality of Alcohol and Drug Abuse Patient Records regulations: The Federal rules restrict any use of the information to criminally investigate or prosecute any alcohol or drug abuse patient.[facility] FOR RECORDS PERTAINING TO PATIENTS WHO ARE [...] BE BASED ON THE PRIMARY CLINICAL RECORDS. [facility] [employer] [facility]. provides no warranty or guarantee of the accuracy or completeness of information in this document.
--- NOTE | 2025-09-08 20:05 | EX.ED.DYSGE1 ---
HPI History of Present Illness Chief Complaint: Constipation Informant: patient, spouse/S.O. and EMS Narrative Narrative: 65-year-old female arriving to the emergency room following a near syncopal episode as well as constipation. Patient arriving by EMS. Patient states that she has been taking sulfasalazine for arthritis. She states that she was having a lot of nausea when they increased her dosage so over the past couple weeks has been taking Zofran. She states she has not had a bowel movement for almost 2 weeks. She reports that she was seen in the emergency department late last week. She was diagnosed with hyponatremia as well as diverticulitis and was started on antibiotics. She still has not had a bowel movement and contacted her doctor today who added an outpatient CT with oral contrast. This was performed. Patient states she was told that she had a moderate amount of stool in the colon. Per the radiologist read there is sigmoid diverticulosis and mild diverticulitis. The inflammatory changes are improved. Patient states that she was told to drink some magnesium citrate. Patient did that and had 2 bottles. She had emesis and felt near syncopal. She states that she began panting and breathing hard and felt tingling in her hands and her feet. At this point she felt like she was going to pass out so she called EMS. [facility] Medical History Elevated C-reactive protein Dupuytren's contracture of left hand Degenerative disc disease, cervical Localized swelling on left hand Neck pain Headache History of COVID-19 Health care maintenance Hyperlipidemia Hypertension Hypothyroidism Encounter for vitamin deficiency screening Plantar fasciitis of right foot Residual atrial septal defect following repair Wrist fracture High cholesterol Heart disease Gall stones Cataracts, bilateral Arthritis Allergies Bone fracture Home Medications Medication Instructions Recorded Last Taken Type aspirin 81 mg tablet,delayed 81 mg PO DAILY 03/15/24 Unknown History release cyanocobalamin (vitamin B-12) 500 250 mcg PO DAILY 03/15/24 Unknown History mcg tablet diclofenac sodium 1 % topical gel 2 g topical ONCE 03/15/24 Unknown History (Voltaren Arthritis Pain) milk thistle 1,000 mg PO DAILY 03/15/24 Unknown History cholecalciferol (vitamin D3) 50 50 mcg PO QDAY 07/30/25 Unknown History mcg (2,000 unit) capsule (Vitamin D3) psyllium husk 3.4 gram/5.8 gram 2.5 g PO DAILY PRN constipation 07/30/25 Unknown History oral powder (Metamucil [facility] Fiber) sulfasalazine 500 mg tablet 1,000 mg (2 x 500 mg) PO BID 1 08/05/25 Unknown Rx month #120 tabs levothyroxine 112 mcg tablet 112 mcg PO .five times weekly #180 08/18/25 Unknown Rx tabs levothyroxine 100 mcg tablet 100 mcg PO .twice week #90 tabs 08/19/25 Unknown Rx metoprolol succinate 100 mg 100 mg PO DAILY #90 tabs 08/20/25 Unknown Rx tablet,extended release 24 hr (Toprol XL) ondansetron 4 mg disintegrating 4 mg PO Q8H PRN nausea and 08/28/25 Unknown Rx tablet vomiting #90 tabs amoxicillin 875 mg-potassium 1 tab PO BID 10 days #20 tabs 09/04/25 Unknown Rx clavulanate 125 mg tablet rosuvastatin 10 mg tablet 10 mg PO DAILY 09/04/25 Unknown History lisinopril 10 mg tablet 10 mg PO DAILY 09/08/25 Unknown History Allergy/AdvReac Type Severity Reaction Status Date / Time No Known Allergies Allergy Verified 09/08/25 19:15 Family History Brother Alcoholism Throat cancer, Onset Age: 60 Mother Psoriatic arthritis Myocardial infarction Hypertension Skin cancer Lung cancer, Onset Age: 92 Heart disease, Onset Age: 65 Brother No problems noted. Sister Melanoma Father Hypertension Surgical History H/O arthroscopy of right knee History of open heart surgery Status post left foot surgery Hx of tonsillectomy H/O splenectomy Social History adopted: No household members: spouse current occupational status: employed history of recent travel: No Smoking Status: Former smoker Smokeless tobacco user: other alcohol intake: current details: scotts- 6 shots weekly what type of physical activity do you participate in: walking and swimming frequency: 3-4 times per week seatbelt use: always do you feel safe at home: Yes ROS ROS ED Constitutional Constitutional ED: Denies chills or weight loss Eyes Eyes: Denies change in vision or diplopia ENT ENT ED: Denies ear pain, rhinorrhea or sore throat Cardiovascular Cardiovascular: Reports other Details: Near syncope ; Denies chest pain, orthopnea, palpitations or racing heartbeat Respiratory/Chest Respiratory/Chest: Denies cough, dyspnea or orthopnea Gastrointestinal Gastrointestinal: Reports constipation, nausea and vomiting; Denies abdominal pain or diarrhea Genitourinary Genitourinary ED: Denies dysuria, hematuria or urinary frequency Musculoskeletal Musculoskeletal: Denies arthralgias or myalgias Integumentary Denies abscess or rash Neurologic Neurologic: Reports paresthesias; Denies headache(s) or weakness Psychiatric Psychiatric: Denies anxiety, depression, suicidal ideation or suicidal thoughts Endocrine Endocrinology: Denies polydipsia, polyphagia or polyuria Allergic/Immunologic Allergic/Immunologic ED: Denies mouth swelling, tongue swelling or urticaria EXAM Physical Exam Const Vital Signs: 09/08/25 19:12 09/08/25 21:09 09/08/25 22:43 Temperature 98.1 F 98.2 F Temperature Source Oral Pulse Rate 81 75 75 Respiratory Rate 16 18 16 Blood Pressure 151/77 H 135/77 H 130/68 H Blood Pressure Mean 101 96 88 Pulse Ox 100 97 Oxygen Delivery Method Room Air Positive well nourished and well developed General Appearance ED: well developed HEENT Reports normocephalic, head/scalp atraumatic and moist mucous membranes Eyes PERRL and EOMs intact bilaterally Neck no lymphadenopathy, supple and no JVD Resp normal respiratory effort and clear to auscultation bilaterally Cardio regular rate, regular rhythm and no murmurs GI normal to inspection, nondistended, normoactive bowel sounds and non-tender Palpation: soft Back/Spine no CVA tenderness and normal ROM Extremity normal to inspection General Extremety ED: Negative for edema General Extremity: Negative for edema Neuro oriented x3 and CN's II-XII intact bilaterally Sensorium / Orientation: alert Motor Exam: strength 5/5 throughout Psych mental status grossly normal Mood & Affect: anxious; Negative for depressed or tearful Skin no rashes or lesions noted and no wounds MDM MDM MDM Narrative Medical decision making narrative: Differential diagnosis includes hyponatremia vasovagal near syncope constipation volvulus fecal impaction acute kidney injury dehydration panic attack anxiety I repeated the patient's BMP because of that reported hyponatremia. She is back down to 123. CO2 is 17 anion gap of 23. I believe that this is most likely be due to the patient's hyperventilation. Patient is EKG is a sinus rhythm at a rate of 73 bpm. I reviewed the patient's CT scan and she does have a large amount of stool in the right colon the contrast coming down to it. I believe some of the constipation is likely due to her concomitant use of Zofran she has been using for nausea due to her sulfasalazine dose increase. Patient was advised to let the oral contrast attempt to soften the stool and that might help induce a bowel movement. If she does not have a bowel movement by tomorrow afternoon I recommend drinking some more magnesium citrate but slowly so she does not vomit again. We talked about anxiety and panic attack contributing to albin's visit. I think that the near syncopal event was most likely vasovagal in nature given the circumstances of the constipation and the vomiting were at that time. Patient was concerned she may not be able to urinate. She was able to urinate here in the department. History & Record Review Discussion w/independent historian: Patient and Significant other Additional record(s) reviewed:: Prior outpatient record, Prior ED visit and Prior labs Lab Data Attestation: I reviewed the patient's lab results. Labs: Laboratory Results - last 24 hr 09/08/25 19:30 Sodium 123 L Potassium 3.8 Chloride 82 L Carbon Dioxide 17.4 L Anion Gap 23 H BUN 9 Creatinine 0.77 Estim Creat Clear Calc 86.63 Est GFR (MDRD) Non-Af 84 BUN/Creatinine Ratio 12.0 Glucose 121 H Calcium 9.9 EKG Initial EKG: Attestation: I personally reviewed and interpreted this EKG as follows: Comments: Normal sinus rhythm ventricular rate of 73 bpm Management Discussion w/another healthcare provider: Assistant [employer] (Serge) Discharge Plan Triage Chief Complaint: Constipation ED Provider: Yvan Brito Dx/Rx/DC Orders Clinical Impression: Constipation, Vasovagal near syncope, Hyponatremia Instructions: ED Constipation (Adult), ED Hyponatremia Prescriptions: No Action aspirin 81 mg tablet,delayed release (DR/EC) 81 mg PO DAILY diclofenac sodium [Voltaren Arthritis Pain] 1 % gel 2 g topical ONCE Patient Comments: four times daily milk thistle 1,000 mg PO DAILY Rx Instructions: takes daily includes Dandelion Root 50 mg cyanocobalamin (vitamin B-12) 500 mcg tablet 250 mcg PO DAILY Metamucil [facility] Fiber 3.4 gram/5.8 gram powder 2.5 g PO DAILY PRN (Reason: constipation) cholecalciferol (vitamin D3) [Vitamin D3] 50 mcg (2,000 unit) capsule 50 mcg PO QDAY lisinopril 10 mg tablet 10 mg PO DAILY rosuvastatin 10 mg tablet 10 mg PO DAILY amoxicillin-pot clavulanate 875-125 mg tablet 1 tab PO BID 10 Days Qty: 20 0RF sulfasalazine 500 mg tablet 1,000 mg PO BID 30 Days Qty: 120 1RF Rx Instructions: give with food (meal/snack) levothyroxine 112 mcg tablet 112 mcg PO .five times weekly Qty: 180 1RF Rx Instructions: takes 112 mcg five times weekly monday - Monday levothyroxine 100 mcg tablet 100 mcg PO .twice week Qty: 90 1RF Rx Instructions: 100 mcg orally; twice weekly Monday and Monday metoprolol succinate [Toprol XL] 100 mg tablet extended release 24 hr 100 mg PO DAILY Qty: 90 1RF ondansetron 4 mg tablet,disintegrating 4 mg PO Q8H PRN (Reason: nausea and vomiting) Qty: 90 1RF Primary Care Provider: Chester Valentine Referrals: Chester Valentine MD [Primary Care Provider, Internal Medicine] - 3-5 Days Print Language: German Disposition Disposition: Home, Self Care Discharge Date/Time: 09/08/25 22:44
[2025-09-08 20:43] LABS: BUN 9 mg/dL (4-19); BUN/Creat Ratio 12.0 RATIO (10-20); Calcium,Total 9.9 mg/dL (7.6-11.0); Carbon Dioxide 17.4 mmol/L (21.0-32.0); Estimated Creatinine Clearance 86.63 ml/min (50-250); Glucose 121 mg/dL (70-99); Potassium 3.8 mmol/L (3.3-5.1)
[2025-09-08 20:45] LABS: Anion Gap 23 (5-15); Chloride 82 mmol/L (98-108)
[2025-09-08 21:09] VITALS: BP 135/77; PULSE 75; RESP 18
[2025-09-08 22:43] VITALS: BP 130/68; PULSE 75; RESP 16; TEMP 36.8; O2SAT 97
--- NOTE | 2025-09-08 22:44 | ED.RN ---
pt was able to void.
== END 2025-09-08 22:44 | disposition home or self-care (01) ==
PROVIDERS: Emergency Provider Emergency Medicine; PCP Internal Medicine; Visit Provider Emergency Medicine
DX: R55 Syncope and collapse (principal); K59.00 Constipation, unspecified; E87.1 Hypo-osmolality and hyponatremia; R11.2 Nausea with vomiting, unspecified; I10 Essential (primary) hypertension; E78.5 Hyperlipidemia, unspecified; E03.9 Hypothyroidism, unspecified; M19.90 Unspecified osteoarthritis, unspecified site; Z79.82 Long term (current) use of aspirin; Z87.19 Personal history of other diseases of the digestive system; Z79.890 Hormone replacement therapy; Z79.899 Other long term (current) drug therapy; Z87.891 Personal history of nicotine dependence
CPT/HCPCS: 80048; 93005; 99285; A4216

== ENCOUNTER → 2025-09-08 | Outpatient (CLI) | payer MEDICARE, SELFPAY ==
--- NOTE | 2025-09-08 10:01 | CT_ITS ---
PROCEDURE: ABDOMEN/PELVIS WITH CONTRAST 09/08/2025 REASON FOR EXAM: ACUTE CONSTIPATION History of sigmoid diverticulitis. TECHNIQUE: Procedure Code: [id number] Modality: CT Procedure: ABDOMEN/PELVIS WITH CONTRAST Coronal and Sagittal reconstruction series were provided. CONTRAST: Isovue-300 VOLUME: 90 mL One or more dose reduction techniques were used (e.g., Automated exposure control, adjustment of the mA and/or kV according to patient size, use of iterative reconstruction technique. RADIATION DOSE SUMMARY: CTDlvol: 14.8 mGy DLP: 1213.94 mGycm COMPARISON: September 04, 2025. FINDINGS: Lung bases: Lung bases are clear. Liver: Diffuse fatty infiltration. Stable 1 cm cyst in the dome of the right lobe of the liver. Gallbladder: Gallstones. Spleen: Status post splenectomy. Pancreas: Normal size without evidence of mass surrounding inflammation or ductal dilation. Adrenals: Unremarkable Kidneys: Normal renal sizes. No hydronephrosis. Bladder: Unremarkable Reproductive Organs: Normal uterine size and contour. Ovaries are unremarkable. Bowel: Colonic diverticulosis without diverticulitis. Minimal residual inflammatory changes in the surrounding peritoneal fat. Moderate amount of fecal material is seen throughout the colon worse in the right hemicolon. Appendix: The appendix is not identified. There is no inflammatory process identified in the right lower quadrant to suggest appendicitis. Lymph nodes: Unremarkable. Vasculature: Mild diffuse atherosclerotic calcifications are noted. Peritoneum / Retroperitoneum: Unremarkable Bones: Unremarkable CT/Abdomen/Pelvis WITH Contrast IMPRESSION: Fatty infiltration of the liver. Small cyst in the dome of the right lobe of t he liver. Multiple gallstones. Moderate amount of fecal material is seen in the colon. Sigmoid diverticulosis and mild diverticulitis. This has improved as compared to prior study. [facility]
== END | disposition home or self-care (01) ==
LOC: CT 09:58
PROVIDERS: PCP Internal Medicine; Referring Provider Internal Medicine; Visit Provider Internal Medicine
DX: K59.00 Constipation, unspecified (principal); K57.92 Diverticulitis of intestine, part unspecified, without perforation or abscess without bleeding
CPT/HCPCS: 74177; Q9967

== ENCOUNTER → 2025-09-15 | Outpatient (CLI) | payer MEDICARE, SELFPAY ==
[2025-09-15 13:26] LABS: Anion Gap 12 (5-15); BUN 10 mg/dL (4-19); BUN/Creat Ratio 14.8 RATIO (10-20); Calcium,Total 9.8 mg/dL (7.6-11.0); Carbon Dioxide 23.9 mmol/L (21.0-32.0); Chloride 92 mmol/L (98-108); Glucose 99 mg/dL (70-99); Potassium 4.2 mmol/L (3.3-5.1)
== END | disposition home or self-care (01) ==
LOC: MTLAB 10:27
PROVIDERS: PCP Internal Medicine; Referring Provider Internal Medicine; Visit Provider Internal Medicine
DX: E87.1 Hypo-osmolality and hyponatremia (principal); E03.9 Hypothyroidism, unspecified
CPT/HCPCS: 36415; 80048; 84443

== ENCOUNTER → 2025-09-22 | Outpatient (CLI) | payer MEDICARE, SELFPAY ==
--- NOTE | 2025-09-22 11:44 | RAD_ITS ---
PROCEDURE: CHEST PA AND LATERAL 09/22/2025 REASON FOR EXAM: COUGH TECHNIQUE: Procedure Code: RADCXR Modality: DX Procedure: CHEST PA AND LATERAL COMPARISON: None FINDINGS: Hardware: Median sternotomy wires and vascular clips are noted. Heart: Heart size and configuration are within normal limits. Arteriosclerotic vascular disease of the aorta is noted. Pulmonary vasculature is unremarkable. Mediastinum: Mediastinum is unremarkable Lungs: Lungs are expanded without evidence of atelectasis, consolidation, effusion, pneumonic infiltrate or pneumothorax. Bones: There is a slight increased kyphotic curvature of the upper thoracic spine. Mild spondylosis of the thoracic spine is noted. RAD/Chest PA and Lateral IMPRESSION: No acute cardiopulmonary process is identified radiographically. Reading Location: [id number]
== END | disposition home or self-care (01) ==
LOC: MTRAD 11:43
PROVIDERS: PCP Internal Medicine; Referring Provider Internal Medicine Rheumatology; Visit Provider Internal Medicine Rheumatology
DX: R05.9 Cough, unspecified (principal)
CPT/HCPCS: 71046

== ENCOUNTER → 2025-09-26 | Outpatient (CLI) | payer MEDICARE, SELFPAY ==
[2025-09-26 12:44] LABS: Anion Gap 10 (5-15); BUN 12 mg/dL (4-19); BUN/Creat Ratio 17.2 RATIO (10-20); Calcium,Total 9.6 mg/dL (7.6-11.0); Carbon Dioxide 24.9 mmol/L (21.0-32.0); Chloride 104 mmol/L (98-108); Glucose 97 mg/dL (70-99); Potassium 4.3 mmol/L (3.3-5.1)
== END | disposition home or self-care (01) ==
LOC: EPLAB 09:44
PROVIDERS: PCP Internal Medicine; Visit Provider Internal Medicine
DX: E87.1 Hypo-osmolality and hyponatremia (principal)
CPT/HCPCS: 36415; 80048